=== PATIENT | male | born 1950 | race Caucasian/White ===

== ENCOUNTER → 2018-06-09 08:00 | Outpatient (CLI) | payer MEDICARE, OTHER, SELFPAY ==
[2018-06-09 11:04] LABS: AST(SGOT) 29 U/L (15-37); Alanine Aminotransfer ALT/SGPT 37 U/L (16-61); Albumin, Serum 3.8 g/dL (3.2-5.0); Alkaline Phosphatase 68 U/L (45-117); Anion Gap 7 (5-15); BUN 18 mg/dL (7-18); BUN/Creat Ratio 14.3 RATIO (10-20); Calcium,Total 8.7 mg/dL (8.5-10.1); Chloride 111 mmol/L (98-107); Cholesterol 149 mg/dL (200); Creatinine, Serum 1.26 mg/dL (0.70-1.30); EST Glomerular Filtration Rate 60 mL/min (>60); Est Glom Filt Rate - Afr Amer 73 mL/min (>60); Globulin 3.7 g/dL (2.2-4.2); Glucose 96 mg/dL (74-106); High Density Lipoprotein 28 mg/dL; Potassium 4.1 mmol/L (3.5-5.1); Protein, Total 7.5 g/dL (6.4-8.2); Sodium Level 143 mmol/L (136-145); Triglycerides 139 mg/dL; Very Low Density Lipoprotein 28 mg/dL (5-40)
== END ==
PROVIDERS: Family Provider Family Medicine; PCP Family Medicine; Visit Provider Family Medicine
DX: Z00.00 Encounter for general adult medical examination without abnormal findings (principal)
CPT/HCPCS: 36415; 80053; 80061

== ENCOUNTER → 2018-09-08 09:58 | Outpatient (CLI) | payer MEDICARE, OTHER, SELFPAY ==
[2018-09-08 13:02] LABS: AST(SGOT) 35 U/L (15-37); Alanine Aminotransfer ALT/SGPT 40 U/L (16-61); Albumin, Serum 3.9 g/dL (3.2-5.0); Alkaline Phosphatase 79 U/L (45-117); Bilirubin, Direct 0.19 mg/dL (0.00-0.30); CPK Total, Creatine Kinase 225 U/L (39-308); Cholesterol 158 mg/dL (200); Globulin 3.5 g/dL (2.2-4.2); High Density Lipoprotein 33 mg/dL; Protein, Total 7.4 g/dL (6.4-8.2); Triglycerides 123 mg/dL; Very Low Density Lipoprotein 25 mg/dL (5-40)
[2018-09-08 13:06] LABS: Vitamin D,25 Hydroxy 23.8 ng/mL (29.95-100.01)
--- OUTSIDE RECORDS SUMMARY | 2018-10-21 00:58 | XMS RPT_ITS ---
:1950 Author Organization OHIP Care Team Providers Name Role Phone Hebert Brown Attending Unavailable Hebert Brown Primary Care Unavailable Hebert Brown Attending Unavailable Hebert Brown Primary Care Unavailable Hebert Brown Attending Unavailable Hebert Brown Referring Unavailable Hebert Brown Primary Care Unavailable PROBLEMS PROBLEMS DATE TYPE CONDITION / CODE ATTENDING STATUS SOURCE 09/08/2018 Unknown M79.10 - Myalgia, Hebert Brown Active [place] unspecified site [facility]ly [facility] / M79.10(ICD-10) Hospital Repository PROCEDURES PROCEDURES No Procedure Records FoundRESULTS RESULTS LIVER PROFILE Collected: 09/08/2018 Status: F Source: [facility] 9:59 AM [facility] REPOSITORY TYPE CODE TESTS RESULT OUT OF RANGE REFERENCE UNITS LAB L501.1500 6.4-8.2 g/dL Normal T PROT 7.4 LAB L501.1800 3.2-5.0 g/dL Normal ALB 3.9 LAB L501.1950 2.2-4.2 g/dL Normal GLOB 3.5 LAB L501.4100 15-37 U/L Normal AST 35 LAB L501.4305 45-117 U/L Normal ALK P 79 LAB L501.4405 16-61 U/L Normal ALT 40 LAB L501.4600 0.20-1.00 mg/dL Normal T BILI 0.90 LAB L501.4700 0.00-0.30 mg/dL Normal D BILI 0.19 Performed By: #### L500.3400, L500.4100, L501.3620 #### [facility] [address] [place], [address] LIPID PROFILE Collected: 09/08/2018 Status: F Source: [place]ERT[place] 9:59 AM [facility] REPOSITORY TYPE CODE TESTS RESULT OUT OF RANGE REFERENCE UNITS LAB L501.4900 200 mg/dL Normal CHOL 158 Result Comment: <200 mg/dL Desirable 200-240 mg/dL Borderline >240 mg/dL High Risk LAB L501.5000 mg/dL Normal TRIG 123 Result Comment: The drugs N-Acetylcysteine and Metamizole may falsely depress this assay. Serum Triglycerides Reference Interval Normal <150 mg/dL Borderline high 150 - 199 mg/dL High 200 - 499 mg/dL Very High > or = 500 mg/dL LAB L501.6400 mg/dL Low HDL 33 Result Comment: The drugs N-Acetylcysteine and Metamizole may falsely depress this assay. Reference Range HDL <40 mg/dL Low HDL Cholesterol HDL >or= 60 mg/dL High HDL Cholesterol LAB L501.6500 0-130 mg/dL Normal LDL 100 LAB L501.6600 5-40 mg/dL Normal VLDL 25 Performed By: #### L500.3400, L500.4100, L501.3620 #### [facility] [address] [place], [address] CPK TOTAL, CREATINE Collected: 09/08/2018 Status: F Source: [facility] KINASE 9:59 AM [facility] REPOSITORY TYPE CODE TESTS RESULT OUT OF RANGE REFERENCE UNITS LAB L501.3620 39-308 U/L Normal CPK TOTAL 225 Performed By: #### L500.3400, L500.4100, L501.3620 #### [facility] [address] [place], [address] VITAMIN D,25 HYDROXY Collected: 09/08/2018 Status: F Source: [place] 9:59 AM [facility] REPOSITORY TYPE CODE TESTS RESULT OUT OF REFERENCE UNITS RANGE LAB L506.1000 29.95-100.01 ng/mL Low Vitamin D 23.8 25-OH Result Comment: Vitamin D 25(OH) Status Range Deficiency <20 ng/mL (50nmol/L) Insuffciency 20 - 30 ng/mL (50 - 75 nmol/L) Sufficiency 30 - 100 ng/mL (75 - 250 nmol/L) Toxicity >100 ng/mL (>250 nmol/L) Performed By: #### L506.1000 #### [facility] [place], [address] COMPREHENSIVE METABOLIC Collected: 06/09/2018 Status: F Source: [facility] KUMAR 8:06 AM [facility] REPOSITORY Order Comment: Order Date: 06/03/18 Order Info: [id number] - CMP Order Info: [id number] - LIPID TYPE CODE TESTS RESULT OUT OF RANGE REFERENCE UNITS LAB L501.0100 74-106 mg/dL Normal GLU 96 Result Comment: Please note revised GLUCOSE reference range effective 2017. LAB L501.1000 7-18 mg/dL Normal BUN 18 LAB L501.1100 0.70-1.30 mg/dL Normal CREAT,SERUM 1.26 Result Comment: The validity of the calculated GFR AND GFRAA in patients over 70 years has not been determined. Clinical correlation is essential. LAB L501.1110 >60 mL/min Normal EST GFR 60 Result Comment: Non- GFR Calc LAB L501.1115 >60 mL/min Normal EST GFR - AA 73 Result Comment: GFR Calc LAB L501.1300 10-20 RATIO Normal BUN/CRE 14.3 LAB L501.1500 6.4-8.2 g/dL T Normal PROT 7.5 LAB L501.1800 3.2-5.0 g/dL Normal ALB 3.8 LAB L501.1950 2.2-4.2 g/dL Normal GLOB 3.7 LAB L501.2000 0.9-2.4 RATIO Normal A/G 1.0 LAB L501.2200 8.5-10.1 mg/dL CA Normal 8.7 LAB L501.4100 15-37 U/L Normal AST 29 Result Comment: Slight Hemolysis, Result may be falsely increased. LAB L501.4305 45-117 U/L Normal ALK P 68 LAB L501.4405 16-61 U/L Normal ALT 37 LAB L501.4600 0.20-1.00 mg/dL Normal T BILI 1.00 LAB L501.5300 136-145 mmol/L Normal NA 143 LAB L501.5600 3.5-5.1 mmol/L Normal K 4.1 Result Comment: Slight Hemolysis, Result may be falsely increased. LAB L501.5900 98-107 mmol/L High CL 111 LAB L501.6100 21.0-32.0 mmol/L Normal CO2 25.0 LAB L501.6200 5-15 Normal 7 GAP Performed By: #### L500.4050, L500.4100 #### [facility] [address] [place], [place], [address] LIPID PROFILE Collected: 06/09/2018 Status: F Source: TERRY 8:06 AM [facility] REPOSITORY Order Comment: Order Date: 06/03/18 Order Info: [id number] - CMP Order Info: [id number] - LIPID TYPE CODE TESTS RESULT OUT OF RANGE REFERENCE UNITS LAB L501.4900 200 mg/dL Normal CHOL 149 Result Comment: <200 mg/dL Desirable 200-240 mg/dL Borderline >240 mg/dL High Risk LAB L501.5000 mg/dL Normal TRIG 139 Result Comment: The drugs N-Acetylcysteine and Metamizole may falsely depress this assay. Serum Triglycerides Reference Interval Normal <150 mg/dL Borderline high 150 - 199 mg/dL High 200 - 499 mg/dL Very High > or = 500 mg/dL LAB L501.6400 mg/dL Low HDL 28 Result Comment: The drugs N-Acetylcysteine and Metamizole may falsely depress this assay. Reference Range HDL <40 mg/dL Low HDL Cholesterol HDL >or= 60 mg/dL High HDL Cholesterol LAB L501.6500 0-130 mg/dL Normal LDL 93 LAB L501.6600 5-40 mg/dL Normal VLDL 28 Performed By: #### L500.4050, L500.4100 #### [facility] [address] [place], [address] ALLERGIES ALLERGIES No Allergies Records FoundENCOUNTERS ENCOUNTERS ADMIT/DISCHARGE ACCOUNT ADMITTING ENCOUNTER LOCATION SOURCE NUMBER CLASS 09/29/2018 [id number] Ambulatory [facility] 9 [facility] ing:PT Repository 09/08/2018 [id number] Ambulatory [place] 6 [facility] ing:MFPLAB Repository 06/09/2018 [id number] Ambulatory [place] 7 [facility] ing:MFPLAB Repository PAYERS PAYERS ENCOUNTER GUARANTOR PAYER SUBSCRIBER SOURCE 09/29/2018 QUIRINO E Primary QUIRINO E [place] [id number] [address] Insurance:MEDICARE FANKHAUSERDOB: [facility] [id number] Number: Repository [id number]: 330 [id number] [phone] () Date:2013-12-11 09/29/2018 Secondary QUIRINO E [place] Insurance:AETNA SR FANKHAUSERDOB: Community SUPPLEMENT [facility] [id number] Hospital Number: Repository [id number] Date:[id number] SENIOR SUPPLEMENT [address] [place] [id number]: 09/29/2018 Tertiary NOT GIVENUNK [place] Insurance:SELF PAY [facility] Number: Effective Repository Date:2018-09-18 09/08/2018 QUIRINO E Primary QUIRINO E [place] [id number] Insurance:MEDICARE FANKHAUSERDOB: [facility] [id number] Number: Repository [id number]: 330 [id number] [phone] () Date:2018-09-08 09/08/2018 Secondary QUIRINO E [place] Insurance:AETNA SR FANKHAUSERDOB: Community SUPPLEMENT [facility] [id number] Hospital Number: Repository [id number] Date:[id number] SENIOR SUPPLEMENT [id number] [place] [id number]: 09/08/2018 Tertiary NOT GIVENUNK [place] Insurance:SELF PAY [facility] Number: Effective Repository Date:2018-09-08 06/09/2018 QUIRINO E Primary QUIRINO E [place] [id number] Insurance:MEDICARE FANKHAUSERDOB: [facility] PART A BPolicy [id number] Number: Repository [address]Jua: [phone] [id number] [phone] () Date:2018-06-09 06/09/2018 Secondary QUIRINO E [place] Insurance:ROMEO NIEVESOB: Community SUPPLEMENT [facility] [id number] Hospital Number: Repository [id number] Date:0723-11-75PSRTI SENIOR SUPPLEMENT [address] [address], [place] [address]LZ: 06/09/2018 Tertiary NOT GIVENUNK [place] Insurance:SELF PAY [facility] Number: Effective Repository Date:2018-06-09
== END ==
PROVIDERS: Family Provider Family Medicine; PCP Family Medicine; Visit Provider Family Medicine
DX: M79.10 Myalgia, unspecified site (principal)
CPT/HCPCS: 36415; 80061; 80076; 82306; 82550

== ENCOUNTER 2018-10-22 12:00 | Outpatient (RCR) | payer MEDICARE, OTHER, SELFPAY ==
--- NOTE | 2018-10-08 08:02 | HP.PTEVAL ---
Patient's Visit Information QUIRINO CORDERO is a 68 year old M referred to Physical Therapy by Hebert Brown MD with a diagnosis of R shoulder pain, RTC weakness. Date of Evaluation: 09/22/18 Physical Therapist: Adryan Heredia DPT - Visit Plan Frequency: 1x/Week Duration: 5 weeks Plan: Progress rotator cuff, scapular strengthening to tolerance. - Subjective Findings: Pt. is here today for his initial evaluation with diagnosis of R shoulder RTC weakness. Pt. reports having increased soreness and weakness over the past few years. Pt. reports no mechanism of injury that he can remember. Pt. denies N/T. He does have pain with lifting over head, reaching out to side and forward, eating and UB dressing. Pt. reports pain at subacromial space and in deltoid region. Pt. has not trialed any exercises at this point in time. Pt. was sent here to work on RTC strengthening specifically his supraspinatus muscle. Pt. is hopeful to increase strength in order to get back to all recreational and household activities without limitations. - Pain Right Shoulder Pain Intensity (Out of 10): 1 Pain Intensity Range: 0, 4 - Objective POSTURE: Pt. has normal should heights. Pt. does have slight FH and rounded shoulder posture. Pt. is able to correct with VCing. Pt. has slight protracted scapulae bilaterally. PALPATION: Pt. has no pain throughout scapular region. Pt. does have slight pain with palpation of subacomial space. NEURO: Pt. has normal sensation to light and sharp touch. Pt. has 2+ DTR of bilateral UEs. ROM: L shoulder- full without issues. R shoulder- flexion 175deg, abd 165deg mild increase NW, ER C5 NE, IR L2 NE. MMT: L shoulder- 5/5 throughout. R shoulder- flexion 4+/5, abd 4/5, ER 4-/5, IR 5/5, ext 5/5. Pt. had mild pain with ER, increase NW. - Special Tests R Shoulder Drop Sign - IS Test: Negative R Shoulder Empty Can - SS: Positive R Shoulder Neer - Impingement: Positive R Shoulder [place] - Impingement: Positive R Shoulder Biceps Load Test - Labrum: Negative R Shoulder Speeds Test - Labrum/Biceps: Negative Comments: weakness with testing, minimal pain - Goals Goal 1:: Pt. to be I with HEP. Goal Time Frame: 4-6 Weeks Goal 2:: Pt. to sleep througout the night without increase in symptoms. Goal Time Frame: 2-4 Weeks Goal 3:: Pt. to have increased strength throughout R shoulder by 1/2 grade to increase tolerance to all recreational and ADL activities. Goal Time Frame: 4-6 Weeks Goal 4:: Pt. to complete all ADLs and household work without increase in symptoms. Goal Time Frame: 4-6 Weeks Goal 5:: Pt. to have full ROM of R shoulder without increase in symptoms. Goal Time Frame: 4-6 Weeks - Rehabilitation Potential Physical Therapy Diagnosis: Pt. has signs and symptoms consistent with R shoulder pain and RTC weakness. Pt. has greatest weakness with ER, supraspinatus muscle. Pt. does have increased symptoms with ER movements and overhead. Pt. has marked weakness and would benefit from strengthening to increase stability and tolerance to all ADls and recreational activities. Rehabilitation Potential: Good - Anticipated Interventions Patient/Client Instruction: Educate patient on: Condition, Plan of Care, Risk Factors, Benefits of Fitness Program For the Purpose of:: To improve decision making, To facilitate caregiver knowledge, To improve self management, To prevent re-injury, To improve ability to perform tasks related to life management, To improve tolerance to ADL's Therapeutic Exercise to Include: Strength training, Power training, Endurance training, Postural training, Flexibilty training, Passive ROM, Active ROM, Scapular Strength/Stabilization For the Purpose of:: To decrease pain, To decrease swelling/inflammation, To increase ROM, To improve nutrient delivery to tissue, To increase oxygenation perfusion, To improve muscle performance and motor function, To improve ability to perform ADL's, To improve health of tissue, To decrease soft tissue restriction, To increase flexibility/ROM Manual Therapy Techniques to Include: Mobilization, Passive ROM For the Purpose of:: To decrease pain, To increase ROM Cryotherapy (ice pack, ice massage): Yes Thermo therapy (hot pack): Yes For the Purpose of:: To decrease pain, To decrease swelling/inflammation, To increase ROM Thank you for the opportunity to evaluate your patient. For Medicare and Medicare HMO plans, please review the plan of care and approve it. It will need to be FAXED BACK to us at [phone] for Medicare purposes. For Medicare only, by signing this I certify the plan of care. Please let me know if there are questions or concerns regarding this plan of care. Physician Signature: Date:
--- NOTE | 2018-12-09 14:27 | HP.PT.NRP ---
HP - Discharge Summary (1) - Patient Information QUIRINO CORDERO was seen in my office for initial evaluation on 09/22/18. The following Plan of Care was established for this patient: Initial Frequency: 1x/Week Initial Duration: 5 weeks - Anticipated Interventions Patient/Client Instruction: Educate patient on: Condition, Plan of Care, Risk Factors, Benefits of Fitness Program For the Purpose of:: To improve decision making, To facilitate caregiver knowledge, To improve self management, To prevent re-injury, To improve ability to perform tasks related to life management, To improve tolerance to ADL's Therapeutic Exercise to Include: Strength training, Power training, Endurance training, Postural training, Flexibilty training, Passive ROM, Active ROM, Scapular Strength/Stabilization For the Purpose of:: To decrease pain, To decrease swelling/inflammation, To increase ROM, To improve nutrient delivery to tissue, To increase oxygenation perfusion, To improve muscle performance and motor function, To improve ability to perform ADL's, To improve health of tissue, To decrease soft tissue restriction, To increase flexibility/ROM Manual Therapy Techniques to Include: Mobilization, Passive ROM For the Purpose of:: To decrease pain, To increase ROM Cryotherapy (ice pack, ice massage): Yes Thermo therapy (hot pack): Yes For the Purpose of:: To decrease pain, To decrease swelling/inflammation, To increase ROM This patient was last seen in our office 10/22/18. Pertinent comments regarding their Physical therapy will appear below: Pt. was seen for his shoulder pain. Pt. was treated with strengthening and stretching. Pt. has having minimal pain, but still had some crepitus with overhead movements and weakness noted in same region. Pt. desired to continue with exercises on his own after our last visit. Pt. will be DC from PT at this point in time. At this point I will be discontinuing this patient from physical therapy. I would be happy to see this patient again in the future if found appropriate by the physician. Thank you! Adryan Heredia DPT
== END 2018-10-22 19:00 | disposition home or self-care (01) ==
LOC: PT 12:00
PROVIDERS: Family Provider Family Medicine; PCP Family Medicine; Referring Provider Family Medicine; Visit Provider Family Medicine
DX: M62.511 Muscle wasting and atrophy, not elsewhere classified, right shoulder (principal)
CPT/HCPCS: 97110; 97162

== ENCOUNTER → 2019-03-09 | Outpatient (CLI) | payer MEDICARE, OTHER, SELFPAY ==
[2019-03-09 10:44] LABS: Anion Gap 6 (5-15); BUN 25 mg/dL (7-18); Calcium,Total 8.6 mg/dL (8.5-10.1); Chloride 111 mmol/L (98-107); Cholesterol 137 mg/dL (200); Creatinine, Serum 1.19 mg/dL (0.70-1.30); EST Glomerular Filtration Rate 64 mL/min (>60); Est Glom Filt Rate - Afr Amer 78 mL/min (>60); Glucose 91 mg/dL (74-106); High Density Lipoprotein 29 mg/dL; Potassium 4.3 mmol/L (3.5-5.1); Sodium Level 143 mmol/L (136-145); Triglycerides 97 mg/dL; Very Low Density Lipoprotein 19 mg/dL (5-40)
== END | disposition home or self-care (01) ==
LOC: MFPLAB 08:44
PROVIDERS: Family Provider Family Medicine; PCP Family Medicine; Referring Provider Family Medicine; Visit Provider Family Medicine
DX: I10 Essential (primary) hypertension (principal); E78.00 Pure hypercholesterolemia, unspecified
CPT/HCPCS: 36415; 80048; 80061

== ENCOUNTER → 2019-08-16 08:50 | Outpatient (CLI) | payer MEDICARE, OTHER, SELFPAY ==
[2019-08-16 11:11] LABS: Anion Gap 6 (5-15); BUN 25 mg/dL (7-18); Calcium,Total 9.2 mg/dL (8.5-10.1); Chloride 107 mmol/L (98-107); Creatinine, Serum 1.19 mg/dL (0.70-1.30); EST Glomerular Filtration Rate 64 mL/min (>60); Est Glom Filt Rate - Afr Amer 78 mL/min (>60); Glucose 98 mg/dL (74-106); PSA,Total - Annual Screen 3.29 ng/mL (0.00-4.00); Potassium 4.5 mmol/L (3.5-5.1); Sodium Level 141 mmol/L (136-145)
== END ==
PROVIDERS: Family Provider Family Medicine; PCP Family Medicine; Visit Provider Family Medicine
DX: Z00.00 Encounter for general adult medical examination without abnormal findings (principal)
CPT/HCPCS: 36415; 80048; 84153; G0103

== ENCOUNTER 2019-08-16 12:57 | Emergency (ER) | payer MEDICARE, OTHER, SELFPAY ==
[2019-08-16 12:58] VITALS: BP 169/97; PULSE 68; RESP 17; TEMP 36.4; O2SAT 97; BMI 36.3
--- NOTE | 2019-08-16 13:07 | EKG12_ITS ---
Test Reason : CP Blood Pressure : / mmHG Vent. Rate : 066 BPM Atrial Rate : 066 BPM P-R Int : 186 ms QRS Dur : 074 ms QT Int : 410 ms P-R-T Axes : 022 004 024 degrees QTc Int : 429 ms Normal sinus rhythm Possible Left atrial enlargement Borderline ECG Confirmed by LANRE RUSH, AMY ([id number]), make up editor DOLLY ALLISON ([id number]) on 08/18/2019 11:03:33 AM Referred By: ESTEFANIA Confirmed By:AMY DE DIOS MD
--- NOTE | 2019-08-16 13:07 | RAD_ITS ---
STUDY: X-RAY CHEST REASON FOR EXAM: Male, 69 years old. Chest pain. TECHNIQUE: Single AP portable view of the chest. COMPARISON: None. FINDINGS: EKG electrodes are seen. The lungs are clear and expanded. There is no demonstrated pleural abnormality. Normal size heart. Normal mediastinum and ben. Normal visualized pulmonary arteries. Normal visualized aortic arch and descending thoracic aorta. Normal visualized thoracic spine. Normal visualized ribs, clavicles, and shoulders. There is no demonstrated abnormality of the visualized soft tissue structures of the upper abdomen. RAD/Chest 1 View (Portable) IMPRESSION: Normal x-ray examination of the chest. Electronically Signed: Jay Bernard, at 13:40 EST , Service support ,
[2019-08-16] MEDS: Aspirin 81 MG TAB.CHEW 324 MG PO (13:55)
[2019-08-16] MEDS: 0.9% Normal Saline 1,000 ML 150 ML IV (13:55)
[2019-08-16 13:56] VITALS: BP 165/95; PULSE 67; RESP 19; O2SAT 97; O2SAT 98
[2019-08-16 14:13] LABS: Absolute Lymphocyte Count 1.75 X10^3/uL (0.83-4.51); Absolute Neutrophil Count 3.6 X10^3/uL (2.0-7.7); Basophil# 0.03 X10^3/uL; Basophil% 0.5 % (0-1); Eosinophil# 0.14 X10^3/uL; Eosinophils% 2.3 % (0-5); Hematocrit 50.1 % (40-54); Hemoglobin 16.5 g/dL (13.0-16.5); Lymphocyte # 1.75 X10^3/ul (4.0); Lymphocyte % 29.1 % (19-41); Mean Corp Hgb Conc 32.9 g/dL (32-36); Mean Corpuscular Hgb 30.7 pg (27.0-32.0); Mean Corpuscular Volume 93.1 fL (80-94); Mean Platelet Vol. 10.1 fl (6.2-12.0); Monocyte# 0.45 X10^3/uL; Monocyte% 7.5 % (0-10); NRBC Flagged by Analyzer 0 % (0-5); Neutrophil # 3.63 X10^3/uL (2.7-7.7); Neutrophil % 60.3 % (47-70); Platelet Count 165 K/mm3 (150-450); RBC Distribution Width CV 13.1 % (11.6-14.6); RBC Distribution Width SD 44.8 fl (35.1-43.9); Red Blood Count 5.38 M/mm3 (4.6-6.2)
[2019-08-16 14:23] VITALS: BP 152/92; PULSE 56; RESP 12; O2SAT 97
[2019-08-16 14:34] LABS: Anion Gap 5 (5-15); BUN 20 mg/dL (7-18); BUN/Creat Ratio 17.4 RATIO (10-20); Calcium,Total 9.4 mg/dL (8.5-10.1); Chloride 106 mmol/L (98-107); Creatinine, Serum 1.15 mg/dL (0.70-1.30); EST Glomerular Filtration Rate 67 mL/min (>60); Est Glom Filt Rate - Afr Amer 81 mL/min (>60); Estimated Creatinine Clearance 55.88 ml/min; Glucose 88 mg/dL (74-106); Potassium 4.5 mmol/L (3.5-5.1); Sodium Level 138 mmol/L (136-145)
--- NOTE | 2019-08-16 14:49 | ED.DCSUM_ITS ---
History of Present Illness Chief Complaint: Chest Pain Informant: Patient Onset: Days Context: Gradual Onset Timing: Continuous Current Severity: Mild Maximum Severity: Mild Narrative: The patient presents to the emergency department chest pain. Patient states for the past few days, he said a tightness across his left chest. He states he feels like there is a muscle spasm. It is been constant. It does not radiate. He denies any shortness of breath, neck pain, arm pain. He denies any fevers or chills. He said no cough or productive sputum. He states otherwise he is been in his normal state of health. He has no history of coronary vascular disease. Prior similar symptoms: No Recent Illness/Hospitalization: No Past Medical History - Allergies and Home Meds Allergies/Adverse Reactions: Allergies No Known Allergies Allergy (Verified 08/16/19 12:58) Primary Care Physician: Hebert Brown MD [Primary Care Provider] - Prior records reviewed: Yes Surgical History: no surgical history Lives: With Family Smoking Status: Former smoker Review of Systems General: Denies: Chills, Fever, Sweats Eyes: Denies: Visual changes - bilaterally, Diplopia ENT: Denies: Rhinorrhea, Sore throat Cardiovascular: Denies: Chest pain, Palpitations Respiratory: Denies: Dyspnea, Cough, Dyspnea on exertion Gastrointestinal: Denies: Abdominal pain, Nausea, Vomiting, Diarrhea, Melena, Hematochezia Genitourinary: Denies: Dysuria, Hematuria, Frequency Musculoskeletal: Denies: Back pain, Extremity Pain Skin: Denies: Rash, Wounds Neurological: Denies: Headache, Weakness, Numbness Physical Exam Vital Signs/Narrative: Vital Signs Temp Pulse Resp BP Pulse Ox 08/16/19 14:23 56 L 12 152/92 H 97 08/16/19 13:56 67 19 H 165/95 H 97 08/16/19 12:58 97.6 F L 68 17 169/97 H 97 Inital Vital Signs reviewed: Yes General: Well nourished, Well developed, No Acute Distress Head: Normocephalic, Atraumatic Eyes: Perrl, EOMI ENT: Moist mucous membranes, No rhinorrhea Neck: Supple, Nontender Cardiovascular: Regular rate, Regular rhythm, No murmurs Respiratory: No distress, CTA bilaterally, Chest tenderness Abdomen: Soft, Nontender, Nondistended, Normal bowel sounds Back: Nontender, Normal Inspection Extremities: Nontender, No edema Skin: Normal color, No rash Neurological: Alert, Oriented x3, Cranial nerves II-XII grossly intact, Normal Strength, Normal Sensation Psychological: Normal affect, Normal Mood Diagnostic/Tx/Re-eval Chest X-Ray - ED: 2 View, Normal, Heart, Lungs, Mediastinum Clinical Impression(s) from Imaging Studies Chest X-Ray 08/16/19 13:07 IMPRESSION: Normal x-ray examination of the chest. Electronically Signed: Jay Torresmeghnaesmer, at 13:40 EST , Service support , Abnormal Lab Results 08/16/19 08/16/19 14:00 14:00 WBC 6.0 RBC 5.38 Hgb 16.5 Hct 50.1 MCV 93.1 MCH 30.7 MCHC 32.9 RDW Std Deviation 44.8 H RDW Coeff of Ericka 13.1 Plt Count 165 MPV 10.1 Immature Gran % (Auto) 0.300 Neut % (Auto) 60.3 Lymph % (Auto) 29.1 [place] % (Auto) 7.5 Eos % (Auto) 2.3 Baso % (Auto) 0.5 Absolute Neuts (auto) 3.6 Absolute Lymphs (auto) 1.75 Nucleated RBC % 0 Sodium 138 Potassium 4.5 Chloride 106 Carbon Dioxide 27.0 Anion Gap 5 BUN 20 H Creatinine 1.15 Estim Creat Clear Calc 55.88 Est GFR (MDRD) Af Amer 81 Est GFR (MDRD) Non-Af 67 BUN/Creatinine Ratio 17.4 Glucose 88 Calcium 9.4 Troponin I < 0.015 - Rhythm Strip Rhythm Strip: Sinus Rhythm Rate: 60 Ectopy: None - EKG Initial EKG Interpretation: Sinus Rhythm, No Acute Injury Pattern - Medical Decision Making The patient presents with reproducible chest wall pain. There is no vesicles or lesions. EKG was obtained. It was sinus rhythm without acute ischemic change. Patient was resting comfortably. Cardiac enzymes are normal. He is a constant pain for 3 days. I really do not suspect acute coronary syndrome. It is not made worse with exertion. It is nonradiating. It is reproducible. At this point, if the patient is safe for outpatient follow-up. He is comfortable this plan of care and will be discharged home. Impression 1. Chest pain ED Disposition - Plan for ED Patient: Instructions: CHEST PAIN, Uncertain Cause Referrals: Hebert Brown MD [Primary Care Provider] -
[2019-08-16 15:07] VITALS: BP 147/88; PULSE 64; RESP 18; O2SAT 97
== END 2019-08-16 15:09 | disposition home or self-care (01) ==
LOC: ED 13:17
PROVIDERS: Emergency Provider Emergency Medicine; Family Provider Family Medicine; PCP Family Medicine
DX: R07.9 Chest pain, unspecified (principal); I10 Essential (primary) hypertension; Z87.891 Personal history of nicotine dependence
CPT/HCPCS: 36415; 71045; 80048; 84153; 84484; 85025; 93005; 96360; 99285; J7030; G0103

== ENCOUNTER → 2019-12-07 | Outpatient (CLI) | payer MEDICARE, OTHER, SELFPAY ==
[2019-12-07 10:30] LABS: Hematocrit 50.3 % (40-54); Hemoglobin 16.4 g/dL (13.0-16.5); Mean Corp Hgb Conc 32.6 g/dL (32-36); Mean Corpuscular Hgb 30.5 pg (27.0-32.0); Mean Corpuscular Volume 93.7 fL (80-94); Platelet Count 162 K/mm3 (150-450); RBC Distribution Width CV 13.2 % (11.6-14.6); Red Blood Count 5.37 M/mm3 (4.6-6.2)
[2019-12-07 11:13] LABS: ALB/GLOB Ratio 1.1 RATIO (0.9-2.4); AST(SGOT) 29 U/L (15-37); Alanine Aminotransfer ALT/SGPT 36 U/L (16-61); Alkaline Phosphatase 71 U/L (45-117); Anion Gap 5 (5-15); BUN 25 mg/dL (7-18); BUN/Creat Ratio 18.4 RATIO (10-20); Calcium,Total 9.2 mg/dL (8.5-10.1); Chloride 110 mmol/L (98-107); Creatinine, Serum 1.36 mg/dL (0.70-1.30); EST Glomerular Filtration Rate 55 mL/min (>60); Est Glom Filt Rate - Afr Amer 67 mL/min (>60); Globulin 3.8 g/dL (2.2-4.2); Glucose 94 mg/dL (74-106); Potassium 4.3 mmol/L (3.5-5.1); Protein, Total 7.8 g/dL (6.4-8.2); Sodium Level 140 mmol/L (136-145)
[2019-12-07 11:24] LABS: Vitamin D,25 Hydroxy 29.4 ng/mL
== END | disposition home or self-care (01) ==
LOC: MFPLAB 09:23
PROVIDERS: PCP Family Medicine; Referring Provider Family Medicine; Visit Provider Family Medicine
DX: E55.9 Vitamin D deficiency, unspecified (principal); M25.50 Pain in unspecified joint
CPT/HCPCS: 36415; 80053; 82306; 85027

== ENCOUNTER → 2020-03-09 | Outpatient (CLI) | payer MEDICARE, OTHER, SELFPAY ==
[2020-03-09 10:30] LABS: Anion Gap 5 (5-15); BUN 24 mg/dL (7-18); BUN/Creat Ratio 18.8 RATIO (10-20); Calcium,Total 8.8 mg/dL (8.5-10.1); Chloride 108 mmol/L (98-107); Creatinine, Serum 1.28 mg/dL (0.70-1.30); EST Glomerular Filtration Rate 59 mL/min (>60); Est Glom Filt Rate - Afr Amer 71 mL/min (>60); Glucose 99 mg/dL (74-106); Potassium 4.2 mmol/L (3.5-5.1); Sodium Level 139 mmol/L (136-145)
== END | disposition home or self-care (01) ==
LOC: MFPLAB 09:06
PROVIDERS: PCP Family Medicine; Referring Provider Family Medicine; Visit Provider Family Medicine
DX: R79.89 Other specified abnormal findings of blood chemistry (principal)
CPT/HCPCS: 36415; 80048

== ENCOUNTER 2020-12-22 10:52 | Observation (INO) | payer MEDICARE, OTHER, SELFPAY ==
[2020-12-22] VITALS (13 sets, daily range): BP systolic 145–179; BP diastolic 80–100; PULSE 58–78; RESP 12–17; TEMP 35.9–36.9; O2SAT 94–99; BMI 34.9; BMI 35.9
--- NOTE | 2020-12-22 11:22 | EKG12_ITS ---
Test Reason : Blood Pressure : / mmHG Vent. Rate : 062 BPM Atrial Rate : 062 BPM P-R Int : 162 ms QRS Dur : 076 ms QT Int : 418 ms P-R-T Axes : 031 -03 026 degrees QTc Int : 424 ms Normal sinus rhythm with sinus arrhythmia Normal ECG Confirmed by YAHIR RUSH, SPENCER ([id number]), editorial assistant DOLLY ALLISON ([id number]) on 12/25/2020 10:31:48 A M Referred By: RACHAEL Confirmed By:KAREN SINCLAIR MD
--- NOTE | 2020-12-22 11:22 | RAD_ITS ---
STUDY: X-RAY CHEST REASON FOR EXAM: Male, 70 years old. chest pain TECHNIQUE: Single AP portable view of the chest. COMPARISON: 08/16/2019 FINDINGS: The lungs are clear and expanded. There is no demonstrated pleural abnormality. Normal size heart. Normal mediastinum and ben. Normal visualized pulmonary arteries. Normal visualized aortic arch and descending thoracic aorta. Normal visualized thoracic spine. Normal visualized ribs, clavicles, and shoulders. There is no demonstrated abnormality of the visualized soft tissue structures of the upper abdomen. RAD/Chest 1 View (Portable) IMPRESSION: Normal x-ray examination of the chest. Electronically Signed: Deandre Pardo MD at 12:10 EST Tel , Service support ,
--- NOTE | 2020-12-22 11:23 | ED.VIS.GEN ---
History of Present Illness Chief Complaint: General Illness Narrative: 70-year-old male presenting for evaluation. Patient states that he was sitting on the couch and went to stand up and when he did he just became weak and rolled over onto his hands and knees. His states that he was sweating. He was not pale. He denies nausea. He states it felt like somebody had a hand on his chest on the way here in the car and felt like he was in a tunnel. He states this only lasted a couple of minutes. He felt anxious. He denies history of cardiac issues. He does have hypertension and hyperlipidemia. He has no history of stress test. Past Medical History - Allergies and Home Meds Allergies/Adverse Reactions: Allergies No Known Allergies Allergy (Verified 12/22/20 10:53) Prior records reviewed: Yes Past Medical History: - - Hypertension, hyperlipidemia Surgical History: no surgical history Lives: Spouse/ Significant Other Smoking Status: Former smoker Alcohol: None Drugs: None - Family History Maternal Family History: Reports: - - Patient with maternal family history of cancer, some type of female cancer that metastasized to her lungs, hypertension. Paternal Family History: Reports: Diabetes Review of Systems General: Reports: - - Brief generalized weakness. Denies: Chills, Fever Eyes: Denies: Visual changes - bilaterally, Diplopia Cardiovascular: Reports: Chest pain. Denies: Palpitations, Heart racing Respiratory: Denies: Dyspnea, Cough Gastrointestinal: Denies: Abdominal pain, Nausea, Vomiting Genitourinary: Denies: Dysuria, Hematuria Musculoskeletal: Denies: Myalgias, Arthralgias Neurological: Reports: - - Tingling over her entire body.. Denies: Headache, Weakness, Parasthesia Psych: Denies: Depression, Anxiety Physical Exam Vital Signs/Narrative: Vital Signs Temp Pulse Resp BP Pulse Ox 12/22/20 10:53 97.5 F L 72 16 149/88 H 94 Inital Vital Signs reviewed: Yes General: Obese, No Acute Distress ENT: Moist mucous membranes, No rhinorrhea Cardiovascular: Regular rate, Regular rhythm Respiratory: No distress, CTA bilaterally Abdomen: Soft, Nontender, Nondistended Extremities: Nontender, No edema Skin: Normal color, No rash. Negative for: Cyanosis, Diaphoresis Neurological: Alert, Oriented x3, Cranial nerves II-XII grossly intact Psychological: Normal affect, Normal Mood Diagnostic/Tx/Re-eval Clinical Impression(s) from Imaging Studies Chest X-Ray 12/22/20 11:22 IMPRESSION: Normal x-ray examination of the chest. Electronically Signed: Deandre Pardo MD at 12:10 EST Tel , Service support , Laboratory Data 12/22/20 12/22/20 12/22/20 11:40 11:40 11:40 WBC 7.4 RBC 5.36 Hgb 16.4 Hct 49.8 MCV 92.9 MCH 30.6 MCHC 32.9 RDW Std Deviation 45.2 H RDW Coeff of Ericka 13.4 Plt Count 163 MPV 10.6 Immature Gran % (Auto) 0.100 Neut % (Auto) 61.9 Lymph % (Auto) 27.7 [place] % (Auto) 7.6 Eos % (Auto) 2.3 Baso % (Auto) 0.4 Absolute Neuts (auto) 4.6 Absolute Lymphs (auto) 2.05 Nucleated RBC % 0 D-Dimer Quant (PE/DVT) 0.33 Sodium 141 Potassium 4.1 Chloride 108 H Carbon Dioxide 29.0 Anion Gap 4 L BUN 24 H Creatinine 1.28 Estim Creat Clear Calc 51.21 Est GFR (MDRD) Af Amer 71 Est GFR (MDRD) Non-Af 59 L BUN/Creatinine Ratio 18.8 Glucose 101 Calcium 9.5 Magnesium 2.0 Troponin I < 0.015 - Medical Decision Making 70-year-old male presenting with chest pain felt like subtle pressure as well as near syncope. Patient had EKG performed on arrival with a normal sinus rhythm with slight sinus arrhythmia at 62 bpm as interpreted by myself. Chest x-ray showed no acute cardiopulmonary process as interpreted by myself. Patient's lab work shows white blood cell count 7.4, hemoglobin 10.4, platelets 163. GFR is 59. Electrolytes are unremarkable. Troponin negative. Magnesium is normal. Patient's heart score is 4. He was given aspirin. I feel patient would benefit from inpatient evaluation of his chest pain. Impression: 1. Near syncope 2. Chest pain ED Disposition - Plan for ED Patient:
[2020-12-22 11:47] LABS: Absolute Lymphocyte Count 2.05 X10^3/uL (0.83-4.51); Absolute Neutrophil Count 4.6 X10^3/uL (2.0-7.7); Basophil# 0.03 X10^3/uL; Basophil% 0.4 % (0-1); Eosinophil# 0.17 X10^3/uL; Eosinophils% 2.3 % (0-5); Hematocrit 49.8 % (40-54); Hemoglobin 16.4 g/dL (13.0-16.5); Lymphocyte # 2.05 X10^3/ul (4.0); Lymphocyte % 27.7 % (19-41); Mean Corp Hgb Conc 32.9 g/dL (32-36); Mean Corpuscular Hgb 30.6 pg (27.0-32.0); Mean Corpuscular Volume 92.9 fL (80-94); Mean Platelet Vol. 10.6 fl (6.2-12.0); Monocyte# 0.56 X10^3/uL; Monocyte% 7.6 % (0-10); NRBC Flagged by Analyzer 0 % (0-5); Neutrophil # 4.59 X10^3/uL (2.7-7.7); Neutrophil % 61.9 % (47-70); Platelet Count 163 K/mm3 (150-450); RBC Distribution Width CV 13.4 % (11.6-14.6); RBC Distribution Width SD 45.2 fl (35.1-43.9); Red Blood Count 5.36 M/mm3 (4.6-6.2); White Blood Count 7.4 K/mm3 (4.4-11.0)
[2020-12-22] MEDS: Aspirin 81 MG TAB.CHEW 324 MG PO (11:56)
[2020-12-22 11:58] LABS: D-Dimer Quantitative (DVT/PE) 0.33 FEU/ug/m (0.27-0.49)
[2020-12-22 12:04] LABS: Anion Gap 4 (5-15); BUN 24 mg/dL (7-18); BUN/Creat Ratio 18.8 RATIO (10-20); Calcium,Total 9.5 mg/dL (8.5-10.1); Chloride 108 mmol/L (98-107); Creatinine, Serum 1.28 mg/dL (0.70-1.30); EST Glomerular Filtration Rate 59 mL/min (>60); Est Glom Filt Rate - Afr Amer 71 mL/min (>60); Estimated Creatinine Clearance 51.21 ml/min; Glucose 101 mg/dL (74-106); Potassium 4.1 mmol/L (3.5-5.1); Sodium Level 141 mmol/L (136-145)
--- NOTE | 2020-12-22 13:14 | HP.PCM_ITS ---
Problem List (1) Near syncope Status: Acute (2) Chest pressure Status: Acute (3) Hypertension Status: Chronic Qualifiers: Hypertension type: essential hypertension Qualified Code(s): I10 - Es sential (primary) hypertension (4) Hyperlipidemia Status: Chronic Qualifiers: Hyperlipidemia type: unspecified Qualified Code(s): E78.5 - Hyperlipidemia, unspecified (5) Former tobacco use Status: Chronic (6) Anxiety Status: Chronic (7) Obesity (BMI 30-39.9) Status: Chronic History of Present Illness Date of Admission: 12/22/20 Chief Complaint: Near syncope, weakness, diaphoresis, possible chest pressure. The patient is a 70 y/o M w/ PMHx: HTN, HLD, Anxiety, Former tobacco use who presents to the [facility] ED on 12/22/20 with history of onset prior to ED presentation episode of significant weakness upon standing up from the couch with no specific lightheadedness or dizziness but patient fell to his knees and was on all fours with witnessing noting that he was extremely diaphoretic and tremulous prompting her to bring him to the emergency room and during her drive he did note sensation of hearing her distantly and felt somewhat as if he had tunnel vision with chest pressure which he specifically described as a hand on his chest in the midsternal region, nonradiating, very mild, 2 out of 10 in severity potentially with no associated dyspnea, nausea or worsened diaphoresis. He did describe however during the entire event that he felt as though his whole body was mildly tingling. He denies ever having anything like this prior. He notes he is normally very active. In the ED upon presentation he denies any recurrent symptoms. Work-up in the ED included T 97.5, heart rate 72, BP 149/88, orthostatics not marked appearing, respiratory rate 16, 94 to 96% on room air, CBC with WBC 7.4, hemoglobin 16.4, platelet 163 that marked shift, D-dimer 0.33, BMP with chloride 108, BUN/creatinine 24/1.28, magnesium 2.0, troponin less than 0.015, chest x-ray with no acute cardiopulmonary findings, EKG with SR without acute evidence of ischemia, mild sinus arrhythmia. In the ED patient administe red aspirin 324 mg p.o. x1. Past Medical History Past Medical History (Chronic Problems): Chronic Problems Hypertension (Chronic) Hyperlipidemia (Chronic) Former tobacco use (Chronic) Anxiety (Chronic) Obesity (BMI 30-39.9) (Chronic) Allergies No Known Allergies Allergy (Verified 12/22/20 10:53) Home Medications: Ambulatory Orders Medication Instructions Recorded Atorvastatin Calcium [Lipitor] 80 mg PO QHS 12/22/20 Buspirone HCl 10 mg PO BID 12/22/20 Cholecalciferol (VIT D3) [Vitamin 1,000 unit PO DAILY 12/22/20 D3] Metoprolol Tartrate [Lopressor 25 mg PO BID 12/22/20 (Beta Imani)] Surgical History: no surgical history - She denies any surgical history. Psychiatric History: Anxiety Lives: Spouse/ Significant Other Smoking Status: Former smoker - Patient quit cigarette tobacco usage approximately 45 years prior to current presentation noting that he started when he was a teenager and smoked approximately 1/2 pack/day cigarette tobacco usage until he quit. Tobacco Use: Non-smoker Alcohol: None Drugs: None - *Family History Maternal History Items: - - Patient with maternal family history of cancer, some type of female cancer that metastasized to her lungs, hypertension. Paternal History Items: Diabetes Review of Systems Constitutional: Reports: Weakness, Fatigue. Denies: Anorexia, Chills, Fever, Malaise, Weight Change HEENT: Reports: - - Sensation of tunnel vision with chest pressure onset.. Denies: Head Aches, Sinus Congestion, Sinus Drainage Cardiovascular: Reports: Chest Pressure, - - Near syncopal event.. Denies: Chest Pain, Palpitations Respiratory: Denies: Cough, Shortness of Breath, Shortness of breath at rest, Shortness of breath upon exertion, Sputum production Gastrointestinal: Denies: Abdominal Pain, Nausea, Vomiting Genitourinary: Denies: Dysuria Musculoskeletal: Denies: Joint Pain, Joint Tenderness Skin: Denies: Rash, Wounds Neurological: Reports: - - Describes whole body is feeling abnormal, tingling.. Denies: Focal weakness, Numbness, Tingling Psychiatric: Reports: Anxiety. Denies: Depression, Homicidal Ideations, Suicidal Ideations Endocrine: Reports: - - Notably diaphoretic. Hematologic/ Lymphatic: Denies: Easy Bruising, Easy Bleeding VTE Information - Inpt Only VTE Present on Admission: No VTE Mechan Device Prophylaxis: SCD's VTE Pharm Prophylaxis ordered?: Yes Subjective: Patient seated upright in the ED bed, no acute distress, notes being mildly fatigued otherwise resolution of prior symptoms. Objective: Physical Examination: General: awake, alert, oriented x 3 and cooperative, seated upright in the ED bed in no apparent distress, denies any further near syncopal sensation or chest pressure. Skin: normal color, turgor, no icterus, cyanosis. HEENT: AT/NC, EOMI, PERRLA, mildly dry MM, no carotid bruits or JVD noted although thickened neck does make examination difficult. Lungs: CTA bilaterally, moderate effort, mild decrease BL bases, no rales, ronchi or wheezing. Heart: Mildly bradycardic with regular rhythm; no gallop, rub audible. Abdomen: soft, obese, NTTP, ND, normal BS, no HSM. Extremities: no cyanosis, clubbing, or edema. Neurological: patient awake, alert, oriented as noted; cognitive function intact; pupils equally reactive to light and accomodation; cranial nerves II-XII grossly normal, moving all 4 extremities, no focal deficits, strength mildly global decrease given acute presentation but improving. Psychiatric: affect appears mildly fatigued otherwise normal, no acute evidence of depressive or anxiety feelings. - Physical Exam Vitals/I&O's: Vital Signs Temp Pulse Resp BP Pulse Ox 97.5 F L 66 17 145/80 H 96 12/22/20 10:53 12/22/20 11:40 12/22/20 11:35 12/22/20 11:40 12/22/20 11:35 Oxygen Delivery Method Room Air Weight: 230 lb Body Mass Index (BMI) 34.9 Laboratory Results 12/22/20 11:40: WBC 7.4, RBC 5.36, Hgb 16.4, Hct 49.8, MCV 92.9, MCH 30.6, MCHC 32.9, RDW Std Deviation 45.2 H, RDW Coeff of Ericka 13.4, Plt Count 163, MPV 10.6, Immature Gran % (Auto) 0.100, Neut % (Auto) 61.9, Lymph % (Auto) 27.7, [place] % (Auto) 7.6, Eos % (Auto) 2.3, Baso % (Auto) 0.4, Absolute Neuts (auto) 4.6, Absolute Lymphs (auto) 2.05, Nucleated RBC % 0 12/22/20 11:40: D-Dimer Quant (PE/DVT) 0.33 12/22/20 11:40: Sodium 141, Potassium 4.1, Chloride 108 H, Carbon Dioxide 29.0, Anion Gap 4 L, BUN 24 H, Creatinine 1.28, Estim Creat Clear Calc 51.21, Est GFR (MDRD) Af Amer 71, Est GFR (MDRD) Non-Af 59 L, BUN/Creatinine Ratio 18.8, Glucose 101, Calcium 9.5, Magnesium 2.0, Troponin I < 0.015 Assessment/Plan All Active Problems Near syncope (Acute) Chest pressure (Acute) The patient is a 70 y/o M w/ PMHx: HTN, HLD, Anxiety, Former tobacco use who presents to the [facility] ED on 12/22/20 with history of onset prior to ED presentation episode of near syncopal sensation with diaphoresis, tremulous with during drive to the ED for evaluation onset of sensation of tunnel vision and chest pressure which resolved prior to arrival. 1. Near Syncopal Event, Chest pressure: EKG in ED w/ EKG with SR without acute evidence of ischemia, mild sinus arrhythmia, CXR w/ no acute cardiopulmonary findings, initial trop normal. Will admit to PCU, place on a monitored bed to assure no acute myocardial infarction with serial cardiac enzymes and EKGs. Will maintain on fall precautions, obtain ECHO and if continued enzyme trending as well as repeat EKGs remain appropriate consider stress testing in AM and given patient near syncope event with his presentation would defer treadmill at this time. FLP in AM. Mag normal. ASA, NG, Morphine. 2. Hypertension: Continue home regimen including metoprolol with hold parameters, PRN hydralazine. 3. Hyperlipidemia: Continue home statin regimen. AM FLP. 4. Anxiety: We will continue patient BuSpar regimen. 5. Obesity: Weight loss and lifestyle changes encouraged. 6. Former tobacco use: Encourage continued tobacco cessation. 7. DVT prophylaxis: SCDs, Lovenox. 8. CODE status: Patient JUDE is his and notes that this is also set up with their physician, she is present for these conversations and also notes living will is currently in place. Discussed CODE status at length including difference between FULL code, DNR-CCA and DNR-CC status. Following discussions about the differences in these status, requested Full code status although did not give immediate answer and discussed with his . Noted given his age and not marked disease history Full code was appropriate. Advanced Care Planning Face to Face Time: 16 minutes. OBSV E&M: 13908 Initial observation care L3 Procedures: 87010 Advncd Care Plan 30 Min
--- NOTE | 2020-12-22 15:01 | ECHOCS_ITS ---
Reason For Study: Near Syncope Procedure This was a 2D Doppler, Color Flow transthoracic echocardiogram. The study was technically difficult. Contrast injection was performed. Exam performed portable in patient room. Left Ventricle Normal LV size. The estimated ejection fraction is 60 %. Unable to assess diastolic dysfunction. No regional wall motion abnormalities noted. Right Ventricle Normal RV size. Normal systolic function. Atria Normal left atrium. Normal right atrium. No doppler evidence for ASD. Bubble contrast study negative for right to left interatrial shunt. Mitral Valve There is moderate to severe mitral annular calcification. There is no mitral valve stenosis. Trivial mitral valve insufficiency. Tricuspid Valve There is no tricuspid stenosis. Trivial tricuspid valve insufficiency. Unable to estimate RV systolic pressure due to insufficient tricuspid regurgitant envelope. Aortic Valve Aortic sclerosis, no stenosis. Trisinus/trileaflet aortic valve. There is no aortic stenosis. No aortic valve insufficiency. Pulmonic Valve There is no pulmonic valvular stenosis. No pulmonic valve insufficiency. Great Vessels Normal aortic root. Pericardium/Pleural No pericardial effusion. Medication Diluted definity 3ml given slow IV push to enhance endocardial definition. Performed a rapid injection of agitated mix of 9 cc saline and 1cc air to assess for atrial septal defect. MMode/2D Measurements & Calculations LVIDd: 4.6 cm IVSd: 0.98 cm Ao root diam: 3.2 cm LVIDs: 2.3 cm LVPWd: 0.93 cm LA dimension: 4.0 cm RVDd: 3.5 cm FS: 49.0 % LAV(MOD-bp): 54.8 ml LA A4 area: 18.1 cm2 RA A4 area: 16.5 cm2 LAV(MOD-bp) Indexed: 25.0 ml/m2 LAV(MOD-sp2): 63.3 ml LAV(MOD-sp4): 46.4 ml Time Measurements MV dec time: 0.27 sec Doppler Measurements & Calculations MV E max heriberto: 134.0 cm/sec Lat Peak E' Heriberto: 10.5 cm/sec Med Peak E' Heriberto: 8.2 cm/sec MV A max heriberto: 132.5 cm/sec E/E' lat: 12.7 E/E' med: 16.3 MV E/A: 1.0 MV V2 max: 160.8 cm/sec MV P1/2t max heriberto: 161.8 cm/sec Ao V2 max: 153.2 cm/sec MV max P.3 mmHg MV P1/2t: 95.7 msec Ao max P.4 mmHg MV V2 mean: 91.3 cm/sec MV dec slope: 495.1 cm/sec2 MV mean P.9 mmHg MV V2 VTI: 52.3 cm MVA(P1/2t): 2.3 cm2 LV V1 max: 115.2 cm/sec PA V2 max: 110.7 cm/sec TR max heriberto: 302.0 cm/sec LV V1 max P.3 mmHg TR max P.5 mmHg Interpretation Summary The estimated ejection fraction is 60 %. Unable to assess diastolic dysfunction. Trivial mitral valve insufficiency. The study was technically difficult. Contrast injection was performed. Ordering Physician: Zamzam Mcdonnell Referring Physician: Hebert Brown Performed By: Chance Cordero RCS
--- NOTE | 2020-12-22 15:01 | EKG12_ITS ---
Test Reason : AM EKG Blood Pressure : / mmHG Vent. Rate : 067 BPM Atrial Rate : 067 BPM P-R Int : 162 ms QRS Dur : 086 ms QT Int : 420 ms P-R-T Axes : 039 011 041 degrees QTc Int : 443 ms Normal sinus rhythm with sinus arrhythmia Normal ECG When compared with ECG of 22-DEC-2020 16:16, MANUAL COMPARISON REQUIRED, DATA IS UNCONFIRMED Confirmed by NUPUR RUSH, TRAVIS ([id number]), publications editor DOLLY ALLISON ([id number]) on 12/27/2020 10:24:43 AM Referred By: SHANIQUA Confirmed By:TRAVIS ESPITIA MD
[2020-12-22] MEDS: 0.9% Normal Saline 1,000 ML 100 ML IV (16:09)
[2020-12-22] MEDS: Metoprolol Tartrate 25 MG Tablet PO (20:09)
[2020-12-22] MEDS: Famotidine 20 MG Tablet PO (20:09)
[2020-12-22] MEDS: busPIRone 5 MG Tablet 10 MG PO (20:09)
[2020-12-22] MEDS: Atorvastatin Calcium 80 MG Tablet PO (20:10)
[2020-12-23] VITALS (7 sets, daily range): BP systolic 146–171; BP diastolic 87–103; PULSE 64–78; RESP 16–18; TEMP 36.2–36.9; O2SAT 92–98
[2020-12-23] MEDS: 0.9% Normal Saline 1,000 ML 100 ML IV (02:47)
[2020-12-23 05:51] LABS: Absolute Lymphocyte Count 1.93 X10^3/uL (0.83-4.51); Absolute Neutrophil Count 5.3 X10^3/uL (2.0-7.7); Basophil# 0.02 X10^3/uL; Basophil% 0.3 % (0-1); Eosinophil# 0.13 X10^3/uL; Eosinophils% 1.6 % (0-5); Hematocrit 46.1 % (40-54); Hemoglobin 14.9 g/dL (13.0-16.5); Lymphocyte # 1.93 X10^3/ul (4.0); Lymphocyte % 24.4 % (19-41); Mean Corp Hgb Conc 32.3 g/dL (32-36); Mean Corpuscular Hgb 30.4 pg (27.0-32.0); Mean Corpuscular Volume 94.1 fL (80-94); Mean Platelet Vol. 10.3 fl (6.2-12.0); Monocyte# 0.54 X10^3/uL; Monocyte% 6.8 % (0-10); NRBC Flagged by Analyzer 0 % (0-5); Neutrophil # 5.27 X10^3/uL (2.7-7.7); Neutrophil % 66.6 % (47-70); Platelet Count 146 K/mm3 (150-450); RBC Distribution Width CV 13.5 % (11.6-14.6); RBC Distribution Width SD 45.9 fl (35.1-43.9); White Blood Count 7.9 K/mm3 (4.4-11.0)
[2020-12-23] MEDS: Aspirin E.C. 81 MG Tablet PO (05:54)
--- NOTE | 2020-12-23 05:55 | EKG12_ITS ---
Test Reason : CP ADMIT Blood Pressure : / mmHG Vent. Rate : 065 BPM Atrial Rate : 065 BPM P-R Int : 170 ms QRS Dur : 076 ms QT Int : 426 ms P-R-T Axes : 039 004 038 degrees QTc Int : 443 ms Normal sinus rhythm Normal ECG Confirmed by NUPUR RUSH, TRAVIS ([id number]), editorial director DOLLY ALLISON ([id number]) on 12/27/2020 10:25:07 AM Referred By: SHANIQUA Confirmed By:TRAVIS ESPITIA MD
[2020-12-23 06:25] LABS: AST(SGOT) 27 U/L (15-37); Alanine Aminotransfer ALT/SGPT 36 U/L (16-61); Albumin, Serum 3.3 g/dL (3.2-5.0); Alkaline Phosphatase 61 U/L (45-117); Anion Gap 5 (5-15); BUN 17 mg/dL (7-18); Calcium,Total 8.6 mg/dL (8.5-10.1); Chloride 109 mmol/L (98-107); Cholesterol 155 mg/dL (200); Creatinine, Serum 1.21 mg/dL (0.70-1.30); EST Glomerular Filtration Rate 63 mL/min (>60); Est Glom Filt Rate - Afr Amer 76 mL/min (>60); Estimated Creatinine Clearance 54.17 ml/min; Globulin 3.3 g/dL (2.2-4.2); Glucose 114 mg/dL (74-106); High Density Lipoprotein 28 mg/dL; Potassium 4.5 mmol/L (3.5-5.1); Protein, Total 6.6 g/dL (6.4-8.2); Sodium Level 140 mmol/L (136-145); Triglycerides 134 mg/dL; Very Low Density Lipoprotein 27 mg/dL (5-40)
[2020-12-23 06:27] LABS: International Normalized Ratio 1.2; Prothrombin Time (Protime)PT. 14.2 SECONDS (11.7-14.9)
[2020-12-23 06:28] LABS: Partial Thromboplast Time 29.5 Seconds (24.1-36.2)
--- NOTE | 2020-12-23 12:22 | STRESSREP_ITS ---
Stress Test Report Date: 12/23/2020 Procedure: Pharmacologic stress nuclear imaging study Indications: Chest pain Consent: Per the patient Procedure: The patient underwent pharmacologic (Regadenoson) evaluation with a peak heart rate of 107 beats per minute (71%predicted maximal heart rate) and a peak blood pressure of 152/82 mmHg. The baseline ECG demonstrated normal sinus rhythm. EKG during lexiscan infusion revealed no significant ischemic changes. EKG post infusion revealed no significant ischemic changes [There were no cardiac dysrhythmias pretest, during pharmacologic infusion, or recovery]. [There was no complaint of chest discomfort during pharmacologic infusion or recovery]. The examination was discontinued secondary to completion of protocol. Impression: 1. Lexiscan stress test test is negative for Lexiscan infusion induced EKG changes of ischemia. 2. Lexiscan stress test test is negative for Lexiscan infusion induced chest pain. 3. Results of the nuclear portion of the test is as below Myocardial perfusion imaging study: Technique: The patient was injected with 14.2 millicuries of technetium 99m Cardiolite and subsequently rest SPECT Cardiolite nuclear imaging was obtained in the horizontal long, vertical long, and short axis views. The patient underwent pharmacologic [Regadenoson 0.4mg] evaluation. Please see above for details. The patient was injected with 45 millicuries of technetium 99m Cardiolite and subsequently stress SPECT Cardiolite nuclear imaging was obtained in the horizontal long, vertical long, and short axis views. A gated Cardiolite study at peak stress was obtained. Interpretation: Rest and stress SPECT Cardiolite nuclear imaging status post realignment, normalization, and attenuation correction demonstrate decreased radioisotope uptake in the inferior wall on both the rest and stress images prior to attenuation correction. After attenuation correction there is overall normal myocardial radioisotope uptake. Gated images could not be obtained []. LVEF could not be estimated as gated images could not be obtained []%. Impression: 1. There is no evidence of significant ischemia or infarction. 2. Ejection fraction could not be estimated as the gated images could not be obtained. This note was generated with [email or web address] software. It may contain incorrect words, spelling, and punctuation that were not noted in checking the note before signing.
[2020-12-23] MEDS: busPIRone 5 MG Tablet 10 MG PO (12:46)
[2020-12-23] MEDS: Famotidine 20 MG Tablet PO (12:48)
[2020-12-23] MEDS: Metoprolol Tartrate 25 MG Tablet PO (12:50)
--- NOTE | 2020-12-23 12:59 | PCM.DC ---
- Discharge Diagnoses Current Active Problems: Current Active and Chronic Problems Near syncope (Acute) Chest pressure (Acute) Hypertension (Chronic) Hyperlipidemia (Chronic) Former tobacco use (Chronic) Anxiety (Chronic) Obesity (BMI 30-39.9) (Chronic) You will use the following diet at home:: Cardiac Your food should be the consistency of: Regular Your liquids should be the consistency of: Regular/Thin Discharge Activity: Return to Normal Activity Weight Bearing Status: Weight bearing as tolerated Call your doctor if you observe: Shortness of breath, Dizziness, Fainting spells, Swelling in the ankles, Chest pain, Increased palpitations (irregular heartbeat) Instructions: ED Fainting, Vagal Reaction, ED Chest Pain, Noncardiac Allergies/Adverse Reactions: Allergies No Known Allergies Allergy (Verified 12/22/20 10:53) Medications to take at Discharge Atorvastatin Calcium [Lipitor] 80 mg PO QHS 12/22/20 Buspirone HCl 10 mg PO BID 12/22/20 Cholecalciferol (VIT D3) [Vitamin D3] 1,000 unit PO DAILY 12/22/20 Metoprolol Tartrate [Lopressor (beta moon)] 25 mg PO BID 12/22/20 Nitroglycerin (INPATIENT USE) [Nitrostat] 0.4 mg SL Q5M PRN #30 tab.subl 12/23/20 The following prescriptions were given: Nitroglycerin (INPATIENT USE) [Nitrostat] 0.4 mg SL Q5M PRN #30 tab.subl PRN Reason: Cardiac/Chest Pain Transmission Status: Pending to [facility]/pharmacy #[id number] Primary Care Physician: Hebert Brown MD [Primary Care Provider] - Please follow up with your Primary Care Physician in: 1-2 weeks Test Results: Test results from this visit will be discussed in further detail at your follow-up appointment, if applicable. Proposed Discharge Date: 12/23/20
--- NOTE | 2020-12-23 13:07 | DS.PCM_ITS ---
Discharge Date and Diagnosis - Problem List Patient Problems: Active and Suspected Problems Near syncope (Acute) Chest pressure (Acute) Date of Admission: 12/22/20 Date of Discharge: 12/23/20 - Primary Discharge Diagnosis Acute Problems: Active Problems Near syncope (Acute) Chest pressure (Acute) - Secondary Discharge Diagnosis Chronic Problems: Chronic Problems Hypertension (Chronic) Hyperlipidemia (Chronic) Former tobacco use (Chronic) Anxiety (Chronic) Obesity (BMI 30-39.9) (Chronic) Hospital Course and Treatment Imaging Results: 12/23/20 05:55 Nuclear Stress Test - Chemical [NM] AM (NON MEDS) Operations: None Procedures: 2-D Echocardiogram, Stress test Summary of Care Provided: The patient is a 70 year old M with a past medical history as outlined who was admitted through the ED on 12/22/2020 with a complaint of weakness and diapho resis. He also had assisted chest pressure. He denied having any symptoms like this previously. Vitals were stable and CBC was unremarkable. D-dimer was not elevated. BMP was also unremarkable. Troponins x3 were negative and chest x- ray showed no acute cardiopulmonary findings. EKG also showed no acute ST changes and showed mild sinus arrhythmia. He was admitted and managed for near syncope and chest pain to rule out ACS. He had a stress test on 12/23/2020 which showed no evidence of ischemia or infarction and EF could not be estimated as gated images could not be obtained. 2D echo done showed EF of 60% with no no systolic abnormalities and no regional wall motion abnormalities; unable to assess diastolic dysfunction. There was trivial mitral valve insufficiency. Patient remained stable and was discharged on 12/23/2020. He is to follow-up with his primary care doctor in 1 to 2 weeks. Patient seen and examined prior to charge. He had no complaints and felt well. Review of systems otherwise negative. Labs and vitals reviewed. Medication reviewed and reconciled. Patient Problems: Active and Suspected Problems Near syncope (Acute) Chest pressure (Acute) - Physical Exam Vitals/I&O's: Vital Signs Temp Pulse Resp BP Pulse Ox 97.2 F L 76 18 158/99 H 92 12/23/20 12:50 12/23/20 12:50 12/23/20 12:50 12/23/20 12:50 12/23/20 12:50 Oxygen Delivery Method Room Air Weight: 237 lb 10.533 oz Body Mass Index (BMI) 35.9 Intake and Output for Last 24 Hours 12/21/20 12/22/20 12/23/20 23:59 23:59 23:59 Intake Total 240 / 240 Balance 240 / 240 General: Alert, Oriented x3, Cooperative HEENT: Atraumatic, PERRLA, EOMI, Normocephalic Oral: Moist Mucosa Neck: Supple, No JVD, Negative Carotid Bruits Lungs: Clear to auscultation, Normal air movement Cardiovascular: Regular rate, No murmurs Abdomen: Bowel Sounds Present, Soft, Non Tender Extremities: No edema, Capillary Refill Less than 3 Seconds Skin: No rashes, No breakdown Musculoskeletal: No Tenderness to Palpation of Joints or Extremities Neurological: Cranial nerves II-XII grossly intact Psych/Mental Status: Normal Affect, Appropriate, Alert and oriented to time, place, person, mood and affect Laboratory Results 12/22/20 15:47: Troponin I < 0.015 12/22/20 18:09: Troponin I < 0.015 12/23/20 05:40: WBC 7.9, RBC 4.90, Hgb 14.9, Hct 46.1, MCV 94.1 H, MCH 30.4, MCHC 32.3, RDW Std Deviation 45.9 H, RDW Coeff of Ericka 13.5, Plt Count 146 L, MPV 10.3, Immature Gran % (Auto) 0.300, Neut % (Auto) 66.6, Lymph % (Auto) 24.4, [place] % (Auto) 6.8, Eos % (Auto) 1.6, Baso % (Auto) 0.3, Absolute Neuts (auto) 5.3, Absolute Lymphs (auto) 1.93, Nucleated RBC % 0 12/23/20 05:40: PT 14.2, INR 1.2, APTT 29.5 12/23/20 05:40: Sodium 140, Potassium 4.5, Chloride 109 H, Carbon Dioxide 26.0, Anion Gap 5, BUN 17, Creatinine 1.21, Estim Creat Clear Calc 54.17, Est GFR (MDRD) Af Amer 76, Est GFR (MDRD) Non-Af 63, BUN/Creatinine Ratio 14.0, Glucose 114 H, Calcium 8.6, Total Bilirubin 1.10 H, AST 27, ALT 36, Alkaline Phosphatase 61, Total Protein 6.6, Albumin 3.3, Globulin 3.3, Albumin/Globulin Ratio 1.0, Triglycerides 134, Cholesterol 155, LDL Cholesterol 100, VLDL Cholesterol 27, HDL Cholesterol 28 L Interpretation Summary The estimated ejection fraction is 60 %. Unable to assess diastolic dysfunction. Trivial mitral valve insufficiency. The study was technically difficult. Contrast injection was performed. Current Medications Acetaminophen (Acetaminophen 325 Mg Tablet) 650 mg PO Q6H PRN PRN PRN Reason: Pain Score 1-10/Temp > 100.7 F Al Hydroxide/Mg Hydroxide (Mag Hydrox/Al Hydrox/Simeth 30 Ml Udc) 30 ml PO Q6H PRN PRN PRN Reason: Gastric Burning Albuterol Sulfate (Albuterol 2.5 Mg/3 Ml Vial.Neb.) 2.5 mg INHALATION Q2H PRN PRN PRN Reason: Dyspnea, wheezing Aspirin (Aspirin E.C. 81 Mg Tablet) 81 mg PO DAILY@0800 [facility] Last Admin: 12/23/20 05:54 Dose: 81 mg Documented by: Atorvastatin Calcium (Atorvastatin Calcium 80 Mg Tablet) 80 mg PO QHS [facility] Last Admin: 12/22/20 20:10 Dose: 80 mg Documented by: Buspirone HCl (Buspirone 5 Mg Tablet) 10 mg PO BID [facility] Last Admin: 12/23/20 12:46 Dose: 10 mg Documented by: Cholecalciferol (Cholecalciferol (Vit D3) 1,000 Unit (25mcg)) 1,000 unit PO DAILYCM [facility] Last Admin: 12/23/20 12:46 Dose: 1,000 unit Documented by: Enoxaparin Sodium (Enoxaparin 40 Mg/0.4 Ml Syringe) 40 mg SC DAILY [facility] Last Admin: 12/23/20 12:53 Dose: Not Given Documented by: Famotidine (Famotidine 20 Mg Tablet) 20 mg PO BID [facility] Last Admin: 12/23/20 12:48 Dose: 20 mg Documented by: Guaifenesin (Guaifenesin 10 Ml Udc (200mg/10ml)) 20 ml PO Q4H PRN PRN PRN Reason: COUGH Sodium Chloride () 1,000 mls @ 100 mls/hr IV .Q10H [facility] Last Infusion: 12/23/20 08:30 Dose: 0 mls/hr Documented by: Magnesium Hydroxide (Magnesium Hydroxide 30 Ml Udc) 30 ml PO DAILY PRN PRN PRN Reason: Constipation Melatonin (Melatonin 3 Mg Tablet) 3 mg PO QHS PRN PRN PRN Reason: INSOMNIA Metoprolol Tartrate (Metoprolol Tartrate 25 Mg Tablet) 25 mg PO BID [facility] Last Admin: 12/23/20 12:50 Dose: 25 mg Documented by: Morphine Sulfate (Morphine 2 Mg/Ml Syringe) 2 mg IV Q3H PRN PRN PRN Reason: Pain Score 6-10 Nitroglycerin (Nitroglycerin (Inpatient Use) 0.4 Mg Tab.Subl) 0.4 mg SL Q5M PRN PRN Reason: CARDIAC/CHEST PAIN Ondansetron HCl (Ondansetron 4 Mg/2 Ml Vial) 4 mg IV Q8H PRN PRN PRN Reason: NAUSEA/VOMITING Oxycodone HCl (Oxycodone 5 Mg Tablet) 5 mg PO Q4H PRN PRN PRN Reason: Pain Score 4-5 Prochlorperazine Edisylate (Prochlorperazine 10 Mg/2 Ml Vial) 5 mg IV Q4H PRN PRN PRN Reason: Breakthrough Nausea/Vomiting Psyllium Hydrophilic Mucilloid (Psyllium 1 Packet) 1 packet PO DAILY PRN PRN PRN Reason: Constipation Senna/Docusate Sodium (Senna/Docusate Sodium 1 Tablet) 2 tablet PO BID PRN PRN PRN Reason: Constipation Sodium Chloride (0.9% Saline Lock 10 Ml Syringe) 10 - 40 ml IV UD PRN PRN Reason: SALINE FLUSH Throat Lozenges (Benzocaine/Menthol 1 Lozenge) 1 lozenge MUCOUS MEM Q2H PRN PRN PRN Reason: SORE THROAT Discharge Diet: Low fat/ Low Cholesterol Discharge Activity: Return to Normal Activity Weight Bearing Status: Weight bearing as tolerated Call your doctor if you observe: Shortness of breath, Dizziness, Fainting spells, Swelling in the ankles, Chest pain, Increased palpitations (irregular heartbeat) Home Medications: Medications to take at Discharge Atorvastatin Calcium [Lipitor] 80 mg PO QHS 12/22/20 Buspirone HCl 10 mg PO BID 12/22/20 Cholecalciferol (VIT D3) [Vitamin D3] 1,000 unit PO DAILY 12/22/20 Metoprolol Tartrate [Lopressor (beta moon)] 25 mg PO BID 12/22/20 Nitroglycerin (INPATIENT USE) [Nitrostat] 0.4 mg SL Q5M PRN #30 tab.subl 12/23/20 Following Prescriptions Were Given to Patient: Nitroglycerin (INPATIENT USE) [Nitrostat] 0.4 mg SL Q5M PRN #30 tab.subl PRN Reason: Cardiac/Chest Pain Transmission Status: Received by [facility]/pharmacy #[id number] Primary Care Physician: Hebert Brown MD [Primary Care Provider] - Please follow up with your Primary Care Physician in: 1-2 weeks Patient Instructions: ED Chest Pain, Noncardiac, ED Fainting, Vagal Reaction Disposition: Home Minutes spent on discharge:: 35 Patient Condition:: Stable Medical Necessity - Tobacco Use Smoking Status: Former smoker Tobacco Use: Cigarettes, Cigars Meaningful Use Info Meaningful Use Diagnoses (Choose all that apply): None applicable OBSV E&M: 72255 Observation care discharge
== END 2020-12-23 13:51 | disposition home or self-care (01) ==
LOC: ED 11:39 → PCU 13:39
PROVIDERS: Admitting Provider Family Medicine; Emergency Provider Student in an Organized Health Care Education/Training Program; PCP Family Medicine; Visit Provider Student in an Organized Health Care Education/Training Program
DX: R07.89 Other chest pain (principal); R55 Syncope and collapse; E78.5 Hyperlipidemia, unspecified; I10 Essential (primary) hypertension; F41.9 Anxiety disorder, unspecified; I49.8 Other specified cardiac arrhythmias; E66.9 Obesity, unspecified; Z79.899 Other long term (current) drug therapy; Z68.36 Body mass index [BMI] 36.0-36.9, adult; Z87.891 Personal history of nicotine dependence
CPT/HCPCS: 36415; 71045; 78452; 80048; 80053; 80061; 83735; 84484; 85025; 85379; 85610; 85730; 93005; 93017; 93306; 96360; 96361; 99218; 99251; 99285; A9500; J7030; Q9957; A4216; C8929; G0378; G0463; J2785

== ENCOUNTER → 2021-07-13 09:33 | Outpatient (CLI) | payer MEDICARE, OTHER, SELFPAY ==
[2021-07-13 12:38] LABS: PSA,Total - Annual Screen 4.14 ng/mL (0.00-4.00)
== END ==
PROVIDERS: Nurse Practitioner Family; PCP Family Medicine; Referring Provider Family Medicine
DX: Z00.00 Encounter for general adult medical examination without abnormal findings (principal); Z12.5 Encounter for screening for malignant neoplasm of prostate
CPT/HCPCS: 36415; 84153; G0103

== ENCOUNTER → 2021-09-11 14:06 | Outpatient (CLI) | payer MEDICARE, OTHER, SELFPAY ==
[2021-09-11 15:19] LABS: ALB/GLOB Ratio 0.9 RATIO (0.9-2.4); AST(SGOT) 38 U/L (15-37); Alanine Aminotransfer ALT/SGPT 38 U/L (16-61); Albumin, Serum 3.6 g/dL (3.2-5.0); Alkaline Phosphatase 84 U/L (45-117); Anion Gap 7 (5-15); BUN 26 mg/dL (7-18); BUN/Creat Ratio 15.7 RATIO (10-20); Chloride 109 mmol/L (98-107); Creatinine, Serum 1.66 mg/dL (0.70-1.30); EST Glomerular Filtration Rate 43 mL/min (>60); Est Glom Filt Rate - Afr Amer 53 mL/min (>60); Globulin 3.8 g/dL (2.2-4.2); Glucose 107 mg/dL (74-106); Potassium 3.9 mmol/L (3.5-5.1); Protein, Total 7.4 g/dL (6.4-8.2); Sodium Level 141 mmol/L (136-145)
[2021-09-11 15:29] LABS: Microalbumin,Random Urine 33.9 mg/L (NO RANGE EST.); Microalbumin:Creatinine Ratio 26.7 mg/g CRE (<30 mg/g CRE)
== END ==
PROVIDERS: PCP Family Medicine; Referring Provider Family Medicine; Visit Provider Family Medicine
DX: I10 Essential (primary) hypertension (principal)
CPT/HCPCS: 36415; 80053; 82043; 82570

== ENCOUNTER 2022-01-11 10:06 | Outpatient (CLI) | payer MEDICARE, OTHER, SELFPAY ==
[2022-01-11 12:48] LABS: Albumin, Serum 3.9 g/dL (3.2-5.0); BUN 30 mg/dL (7-18); BUN/Creat Ratio 21.9 RATIO (10-20); Calcium,Total 9.3 mg/dL (8.5-10.1); Chloride 110 mmol/L (98-107); Creatinine, Serum 1.37 mg/dL (0.70-1.30); EST Glomerular Filtration Rate 54 mL/min (>60); Est Glom Filt Rate - Afr Amer 66 mL/min (>60); Glucose 101 mg/dL (74-106); PSA,Total- Diagnostic 4.49 ng/mL (0.0-4.0); Phosphorus 3.4 mg/dL (2.5-4.9); Potassium 4.3 mmol/L (3.5-5.1); Sodium Level 139 mmol/L (136-145)
[2022-01-15 11:32] LABS: Testosterone, % Free 2.41 % (1.50-4.20); Testosterone, Total 415 ng/dL (264-916)
== END 2022-01-11 23:59 | disposition home or self-care (01) ==
LOC: MFPLAB 10:08
PROVIDERS: PCP Family Medicine; Referring Provider Family Medicine; Visit Provider Family Medicine
DX: R97.20 Elevated prostate specific antigen [PSA] (principal); R79.89 Other specified abnormal findings of blood chemistry; N52.9 Male erectile dysfunction, unspecified
CPT/HCPCS: 36415; 80069; 84153; 84402; 84403

== ENCOUNTER → 2022-07-30 | Outpatient (CLI) | payer MEDICARE, OTHER, SELFPAY ==
[2022-07-30 10:25] LABS: Microalbumin,Random Urine 8.7 mg/L (NO RANGE EST.); Microalbumin:Creatinine Ratio 7.2 mg/g CRE (<30 mg/g CRE)
[2022-07-30 10:26] LABS: Vitamin D,25 Hydroxy 33.7 ng/mL
[2022-07-30 10:54] LABS: AST(SGOT) 27 U/L (15-37); Alanine Aminotransfer ALT/SGPT 35 U/L (16-61); Albumin, Serum 3.7 g/dL (3.2-5.0); Alkaline Phosphatase 77 U/L (45-117); Anion Gap 5 (5-15); BUN 22 mg/dL (7-18); BUN/Creat Ratio 17.2 RATIO (10-20); Calcium,Total 9.7 mg/dL (8.5-10.1); Chloride 109 mmol/L (98-107); Cholesterol 147 mg/dL (200); Creatinine, Serum 1.28 mg/dL (0.70-1.30); EST Glomerular Filtration Rate 59 mL/min (>60); Est Glom Filt Rate - Afr Amer 71 mL/min (>60); Globulin 3.6 g/dL (2.2-4.2); Glucose 115 mg/dL (74-106); High Density Lipoprotein 29 mg/dL; Potassium 4.3 mmol/L (3.5-5.1); Protein, Total 7.3 g/dL (6.4-8.2); Sodium Level 139 mmol/L (136-145); Triglycerides 134 mg/dL; Very Low Density Lipoprotein 27 mg/dL (5-40)
== END | disposition home or self-care (01) ==
LOC: MFPLAB 08:34
PROVIDERS: PCP Family Medicine; Referring Provider Family Medicine; Visit Provider Family Medicine
DX: I10 Essential (primary) hypertension (principal); E78.00 Pure hypercholesterolemia, unspecified; E55.9 Vitamin D deficiency, unspecified; R97.20 Elevated prostate specific antigen [PSA]
CPT/HCPCS: 36415; 80053; 80061; 82043; 82306; 82570

== ENCOUNTER → 2022-12-31 | Outpatient (CLI) | payer MEDICARE, OTHER, SELFPAY ==
[2022-12-31 15:51] LABS: ALB/GLOB Ratio 1.2 RATIO (0.9-2.4); AST(SGOT) 32 U/L (15-37); Alanine Aminotransfer ALT/SGPT 34 U/L (16-61); Albumin, Serum 4.2 g/dL (3.2-5.0); Alkaline Phosphatase 66 U/L (45-117); Anion Gap 7 (5-15); BUN 24 mg/dL (7-18); BUN/Creat Ratio 18.2 RATIO (10-20); Calcium,Total 9.6 mg/dL (8.5-10.1); Chloride 103 mmol/L (98-107); Creatinine, Serum 1.32 mg/dL (0.70-1.30); EST Glomerular Filtration Rate 56 mL/min (>60); Est Glom Filt Rate - Afr Amer 68 mL/min (>60); Globulin 3.4 g/dL (2.2-4.2); Glucose 79 mg/dL (74-106); Potassium 4.9 mmol/L (3.5-5.1); Protein, Total 7.6 g/dL (6.4-8.2); Sodium Level 138 mmol/L (136-145)
== END | disposition home or self-care (01) ==
LOC: MFPLAB 12:26
PROVIDERS: PCP Family Medicine; Referring Provider Family Medicine; Visit Provider Family Medicine
DX: I10 Essential (primary) hypertension (principal)
CPT/HCPCS: 36415; 80053

== ENCOUNTER → 2023-07-22 | Outpatient (CLI) | payer MEDICARE, OTHER, SELFPAY ==
[2023-07-22 17:25] LABS: Absolute Lymphocyte Count 1.91 X10^3/uL (0.83-4.51); Absolute Neutrophil Count 4.3 X10^3/uL (2.0-7.7); Basophil# 0.02 X10^3/uL; Basophil% 0.3 % (0-1); Eosinophil# 0.18 X10^3/uL; Eosinophils% 2.6 % (0-5); Hematocrit 47.8 % (40-54); Hemoglobin 15.2 g/dL (13.0-16.5); Lymphocyte # 1.91 X10^3/ul (0.83-4.51); Lymphocyte % 27.4 % (19-41); Mean Corp Hgb Conc 31.8 g/dL (32-36); Mean Corpuscular Hgb 30.3 pg (27.0-32.0); Mean Corpuscular Volume 95.4 fL (80-94); Mean Platelet Vol. 11.3 fl (6.2-12.0); Monocyte# 0.54 X10^3/uL; Monocyte% 7.7 % (0-10); NRBC Flagged by Analyzer 0 % (0-5); Neutrophil # 4.31 X10^3/uL (2.7-7.7); Neutrophil % 61.7 % (47-70); Platelet Count 181 K/mm3 (150-450); RBC Distribution Width CV 13.6 % (11.6-14.6); Red Blood Count 5.01 M/mm3 (4.6-6.2)
[2023-07-22 18:07] LABS: AST(SGOT) 29 U/L (15-37); Alanine Aminotransfer ALT/SGPT 36 U/L (16-61); Albumin, Serum 3.6 g/dL (3.2-5.0); Alkaline Phosphatase 89 U/L (45-117); Anion Gap 5 (5-15); BUN 21 mg/dL (7-18); BUN/Creat Ratio 18.3 RATIO (10-20); Calcium,Total 8.8 mg/dL (8.5-10.1); Chloride 106 mmol/L (98-107); Cholesterol 147 mg/dL (200); Creatinine, Serum 1.15 mg/dL (0.70-1.30); EST Glomerular Filtration Rate 66 mL/min (>60); Est Glom Filt Rate - Afr Amer 80 mL/min (>60); Globulin 3.6 g/dL (2.2-4.2); Glucose 103 mg/dL (74-106); High Density Lipoprotein 28 mg/dL; PSA,Total- Diagnostic 3.72 ng/mL (0.0-4.0); Potassium 4.4 mmol/L (3.5-5.1); Protein, Total 7.2 g/dL (6.4-8.2); Sodium Level 138 mmol/L (136-145); Thyroid Stim Hormone (TSH) 1.73 uIU/mL (0.358-3.74)
== END | disposition home or self-care (01) ==
LOC: MFPLAB 14:42
PROVIDERS: PCP Family Medicine; Visit Provider Family Medicine
DX: E78.00 Pure hypercholesterolemia, unspecified (principal); R01.0 Benign and innocent cardiac murmurs; I10 Essential (primary) hypertension; R97.20 Elevated prostate specific antigen [PSA]
CPT/HCPCS: 36415; 80053; 82465; 83718; 84153; 84443; 85025

== ENCOUNTER → 2024-01-20 | Outpatient (CLI) | payer MEDICARE, OTHER, SELFPAY ==
[2024-01-20 14:19] LABS: Anion Gap 6 (5-15); BUN 27 mg/dL (7-18); BUN/Creat Ratio 19.4 RATIO (10-20); Calcium,Total 9.1 mg/dL (8.5-10.1); Chloride 111 mmol/L (98-107); Creatinine, Serum 1.39 mg/dL (0.70-1.30); EST Glomerular Filtration Rate 53 mL/min (>60); Est Glom Filt Rate - Afr Amer 64 mL/min (>60); Glucose 118 mg/dL (74-106); Potassium 3.9 mmol/L (3.5-5.1); Sodium Level 141 mmol/L (136-145)
[2024-01-20 14:51] LABS: Microalbumin,Random Urine 10.6 mg/L (NO RANGE EST.)
== END | disposition home or self-care (01) ==
LOC: MFPLAB 08:44
PROVIDERS: PCP Family Medicine; Visit Provider Family Medicine
DX: I10 Essential (primary) hypertension (principal)
CPT/HCPCS: 36415; 80048; 82043; 82570

== ENCOUNTER → 2024-04-27 | Outpatient (CLI) | payer MEDICARE, OTHER, SELFPAY ==
--- NOTE | 2024-04-27 | IMM_PTH ---
PATIENT: QUIRINO CORDERO LOC: [facility] U#:[id number] AGE/SX: 74/M ROOM: RE04/27/[address]: Dr. Bartolo Child MD : 1950 BED: DIS: 04/27/2024 SPEC #: [id number] RECD: 04/29/24 10:41 STATUS: MADIE REQ #: [id number] AYSE: 04/27/24 00:[address]: Bartolo Child DEPT: IMMUNOHISTOCHEMISTRY RECD BY: Biju Gil ENTERED: 04/29/24 10:42 SP TYPE: IMMUNO OTHR DR: Dr. Hebert Brown MD Tissues: Tongue, NOS Procedures: CK20 (add) CK5-6 (add) CK7 (add) CK8 (add) KI-67 (add) P16 (add) P53 (add) 34BE12 (add) Pankeratin (initial) P40 (add) PHYSICIAN & INSTITUTION [address] [address] SPECIMEN INFORMATION: Tissue Source: Left lateral tongue mass Clinical Info: Left lateral tongue mass Specimen Number: [id number] CPT code: 27710,75205l8 METHODOLOGY: Deparaffinized sections of prefer/formalin-fixed tissue or PAP/DQ stained slides are incubated with monoclonal/polyclonal antibodies/oligonucleotide probes. Localization is made via biotin free immunoperoxidase method. Appropriate controls are performed and reacted as expected. Results on target cell population are indicated in the following table: RESULTS: ANTIBODY / CLONE RESULT AE1-3 (AE1/AE3/PCK26) positive CK7 (OV-TL12/30) positive CK8 (18hcycW37) positive, focal, weak CK20 (KS20.8) negative 34BE12 (34BE12) positive P40 (BC28) positive, weak P16 (E6H4) positive, focal, patchy staining P53 (DO-7) negative (null pattern) Ki-67 (30-9) positive, low ~15% CK5-6 (D5 & 1684) positive These tests were developed and their performance characteristics determined by [facility]. They may not have been cleared or approved by the U.S. Food and Drug Administration. The FDA has determined that such clearance or approval is not necessary. The above immunohistochemical/dualISH markers are ordered and reviewed by the Pathologist. INTERPRETATION: Left lateral tongue mass, biopsy: Invasive moderate differentiated squamous cell carcinoma. EBONY/ 04/30/2024
--- NOTE | 2024-04-27 08:40 | LES_PTH ---
PATIENT: QUIRINO CORDERO LOC: [facility] U#:[id number] AGE/SX: 74/M ROOM: RE04/27/[address]: Dr. Bartolo Child MD : 1950 BED: DIS: 04/27/2024 SPEC #: [id number] RECD: 04/28/24 09:36 STATUS: MADIE REMarisela #: [id number] AYSE: 04/27/24 08:[address]: Bartolo Child DEPT: SURGICAL PATHOLOGY RECD BY: Liam Rios ENTERED: 04/28/24 09:40 SP TYPE: Lesion OTHR DR: Dr. Hebert Brown MD Tissues: Tongue, NOS Procedures: Surgery Specimen Level IV HEADER OPERATION: Permanent pathology PRE-OP DIAGNOSIS: Left lateral tongue mass TISSUE SUBMITTED: Left lateral tongue mass MICROSCOPIC DIAGNOSIS Left lateral tongue mass, biopsy: Invasive moderately differentiated squamous cell carcinoma. See comment. EBONY/ 04/29/2024 COMMENT Immunohistochemistry ([id number]) supports the above diagnosis. Case has been reviewed in consultation with Dr. Redd who concurs with the above diagnosis. IDC:AM MICROSCOPIC DESCRIPTION Slides are reviewed. GROSS DESCRIPTION Received in fixative is one container labeled with the patient's name and designated Oral lesion biopsy. The specimen consists of a piece of mucosal tissue measuring 0.5 x 0.3 x 0.1cm. This specimen is inked and submitted entirely in one cassette. EBONY/ 04/28/2024 TC:0 CPT:81662
== END | disposition home or self-care (01) ==
LOC: LABSPEC 15:32
PROVIDERS: PCP Family Medicine; Referring Provider Otolaryngology; Visit Provider Otolaryngology
DX: K14.8 Other diseases of tongue (principal)
CPT/HCPCS: 88305; 88341; 88342

== ENCOUNTER → 2024-07-08 | Outpatient (CLI) | payer MEDICARE, OTHER, SELFPAY | END | disposition home or self-care (01) | LOC: RAD 10:06 | PROVIDERS: PCP Family Medicine; Referring Provider Student in an Organized Health Care Education/Training Program; Visit Provider Student in an Organized Health Care Education/Training Program | DX: Z12.5 Encounter for screening for malignant neoplasm of prostate (principal); 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, unspecified; C02.8 Malignant neoplasm of overlapping sites of tongue; Z87.891 Personal history of nicotine dependence | CPT/HCPCS: 36415; 74230; 80053; 83735; 84100; 84153; 85025; G0103 ==

== ENCOUNTER 2024-07-15 05:44 | Day surgery (SDC) | payer MEDICARE, OTHER, SELFPAY ==
[2024-07-15] VITALS (8 sets, daily range): BP systolic 111–145; BP diastolic 58–77; PULSE 50–97; RESP 16–18; TEMP 35.8–36.2; O2SAT 93–100; BMI 34.2
[2024-07-15] MEDS: Lactated Ringers 1,000 ML 15 ML IV (06:23)
--- NOTE | 2024-07-15 06:52 | PRE.ANES_ITS ---
ASA Classification* ASA Classification ASA Classification: 2 Assessment & Plan Anesthesia* Anesthesia Assessment Anesthesia Assessment: Discussed sedation and/or anesthesia options, risks, benefits, and alternatives with patient/parents/legal guardian/POA. Questions invited. The patient/parents/legal guardian/POA seems to understand and agrees to proceed with anesthesia plan. Reviewed the physical assessment, medical history, allergy history and patient home medications list prior to surgery/procedure/anesthetic and documented any changes. Performed airway and anesthesia risk assessments. Anesthesia Type Anesthesia Type: MAC Anesthesia Focused Assessment* Temperature: 97.1 F Pulse Rate: 57 Blood Pressure: 145/71 Respiratory Rate: 18 Pulse Ox: 97 Airway Assessment Mouth opens: >3 cm Mallampati Score: II Focused Labs Anesthesia Preop lab: CBC WBC 7.0 K/mm3 (4.4-11.0) 07/08/24 09:55 RBC 4.54 M/mm3 (4.6-6.2) L 07/08/24 09:55 Hgb 13.7 g/dL (13.0-16.5) 07/08/24 09:55 Hct 41.9 % (40-54) 07/08/24 09:55 Plt Count 173 K/mm3 (150-450) 07/08/24 09:55 CHEMISTRY Potassium 4.1 mmol/L (3.5-5.1) 07/08/24 09:55 Sodium 139 mmol/L (136-145) 07/08/24 09:55 Magnesium 1.9 mg/dL (1.6-2.6) 07/08/24 09:55 Phosphorus 3.3 mg/dL (2.5-4.9) 07/08/24 09:55 BUN 17 mg/dL (7-18) 07/08/24 09:55 Creatinine 0.97 mg/dL (0.70-1.30) 07/08/24 09:55 Glucose 106 mg/dL (74-106) 07/08/24 09:55 TSH 1.73 uIU/mL (0.358-3.74) 07/22/23 14:46 COAG PT 14.2 SECONDS (11.7-14.9) 12/23/20 05:40 Pre-Assessment Diagnosis/Proposed Procedure Planned Operative Procedure(s): EGD WITH PEG TUBE PLACEMENT, PORT A CATH PLACEMENT Anesthesia History Anesthesia History - pleat patternmaker: Anesthesia History - pleat patternmaker Hx Hospitalization No 07/13/24 15:01 Any Problems With Anesthesia No 07/13/24 15:01 Cholinesterase deficiency No 07/13/24 15:01 You/Your Family Experience No 07/13/24 15:01 fever (hyperthermia) with Relationship Recent Exposure to Contagious No 07/15/24 06:08 Disease Does patient have nerve No 07/13/24 15:01 stimulator Patient instructed to have device shut off --Does patient have Pacemaker No 07/15/24 06:08 or ICD? When Was Last Pacemaker Check QUESTION #4 FULL TEXT: You/Your Family Experience fever (hyperthermia) with Anesthesia Last Oral Intake Last Oral intake: Last Oral Intake NPO since 20:30 07/15/24 06:08 Meds taken in AM with sips of water? Meds patient instructed to take am of surgery PONV PONV - pleat patternmaker: PONV - pleat patternmaker Female No 07/13/24 15:01 HX of Motion Sickness No 07/13/24 15:01 HX of N/V After Surgery No 07/13/24 15:01 Non-Smoker Yes 07/13/24 15:01 Duration of Surgery greater Yes 07/13/24 15:01 than 60 minutes Number of Risk Factors 2 07/13/24 15:01 PONV Score Moderate Risk 07/13/24 15:01 Height & Weight Height & Weight: Anesthesia: Height & Weight Height 5 ft 8 in 07/15/24 06:08 Weight: 102 kg 07/15/24 06:08 Body Mass Index (BMI) 34.2 07/15/24 06:08 Respiratory Assessment Respiratory Assessment - pleat patternmaker: Respiratory Tract Infection Hx - pleat patternmaker Hx Respiratory Tract Infection No 07/13/24 15:01 STOP Sleep Apnea STOP Sleep Apnea - pleat patternmaker: STOP Sleep Apnea - pleat patternmaker Hx Hypertension Yes: CONTROLLED WITH MEDS 07/13/24 15:01 Hx Sleep Apnea No 07/13/24 15:01 CPAP BIPAP Do you snore loudly (louder No 07/13/24 15:01 than talking or can be heard Do you often feel tired/ No 07/13/24 15:01 fatigued/ sleepy during daytime? Has anyone observed you stop No 07/13/24 15:01 breathing during sleep? STOP Results Negative 07/13/24 15:01 QUESTION #5 FULL TEXT : Do you snore loudly (louder than talking or can be heard through closed doors)? 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 Specify any problems Hx of Preganancy in last 3 N/A 07/13/24 15:01 Months Nurse Filling Out Transfusion [email or web address] 07/13/24 15:01 & Questions: Date: 07/13/24 07/13/24 15:01 Time: 15:05 07/13/24 15:01 Patient unable to answer at this time (ie. confused, unrespo /Reproduction History /Reproductive History - pleat patternmaker: /Reproductive Hx- pleat patternmaker Hx Now Gestational Age (in weeks): EDC: Hx Hx Para Hx Section SAB Active Medications Active Medications: Current Medications Generic Name Dose Route Start Last Admin Trade Name Freq PRN Reason Stop Dose Admin Cefazolin Sodium 2 gm/ Sodium 110 mls @ 150 mls/hr 07/15/24 07:30 Chloride IV 07/15/24 08:13 PREOP ONE Lactated Ringer's 1,000 mls @ 15 mls/hr 07/15/24 06:00 07/15/24 06:23 IV 15 mls/hr .Q48H ALAN Administration PFSH Medical History Wears dentures Cancer History of stress test Encounter for education Hearing loss Home Medications ?Medication ?Instructions ?Recorded ?Last Taken ?Type atorvastatin 80 mg tablet 80 mg PO QHS cholesterol 12/22/20 07/14/24 History buspirone 10 mg tablet 10 mg PO BID mental health 12/22/20 07/15/24 History cholecalciferol (vitamin D3) 25 1,000 unit PO DAILY vitamin 12/22/20 07/14/24 History mcg (1,000 unit) tablet metoprolol tartrate 25 mg tablet 12.5 mg PO BID blood pressure 12/22/20 07/15/24 History irbesartan 75 mg tablet 75 mg PO QDAY 07/01/24 07/14/24 History lidocaine-prilocaine 2.5 %-2.5 % 1 applic topical ONCE PRN Port 07/12/24 Unknown Rx topical cream access 30 days #30 grams ondansetron 4 mg disintegrating 4 mg PO Q8H PRN nausea and 07/12/24 Unknown Rx tablet vomiting #30 tabs prochlorperazine maleate 10 mg 10 mg PO Q6H PRN nausea and 07/12/24 Unknown Rx tablet vomiting #30 tabs Allergy/AdvReac Type Severity Reaction Status Date / Time No Known Allergies Allergy Verified 07/15/24 06:06 Family History Sister Cancer Mother Cancer Father Diabetes Heart disease Surgical History H/O skin graft Hx of tracheostomy History of laryngoscopy S/P partial glossectomy Social History Smoking Status: Former smoker Tobacco: How many years used: 8 how long ago did patient quit smokin years ago alcohol intake: never substance use type: does not use Review of Systems (Anesthesia) ROS Narrative System reviewed and no additional complaints, except as documented.
--- NOTE | 2024-07-15 07:36 | HP.PCM_ITS ---
HPI - General General Date of Admission: 07/15/24 Date of Service: 07/15/24 Chief Complaint: peg/ port placement HPI Narrative QUIRINO CORDERO, is a 74 M who presents [facility] Medical History Wears dentures Cancer History of stress test Encounter for education Hearing loss Home Medications ?Medication ?Instructions ?Recorded ?Last Taken ?Type atorvastatin 80 mg tablet 80 mg PO QHS cholesterol 12/22/20 07/14/24 History buspirone 10 mg tablet 10 mg PO BID mental health 12/22/20 07/15/24 History cholecalciferol (vitamin D3) 25 1,000 unit PO DAILY vitamin 12/22/20 07/14/24 History mcg (1,000 unit) tablet metoprolol tartrate 25 mg tablet 12.5 mg PO BID blood pressure 12/22/20 07/15/24 History irbesartan 75 mg tablet 75 mg PO QDAY 07/01/24 07/14/24 History lidocaine-prilocaine 2.5 %-2.5 % 1 applic topical ONCE PRN Port 07/12/24 Unknown Rx topical cream access 30 days #30 grams ondansetron 4 mg disintegrating 4 mg PO Q8H PRN nausea and 07/12/24 Unknown Rx tablet vomiting #30 tabs prochlorperazine maleate 10 mg 10 mg PO Q6H PRN nausea and 07/12/24 Unknown Rx tablet vomiting #30 tabs Allergy/AdvReac Type Severity Reaction Status Date / Time No Known Allergies Allergy Verified 07/15/24 06:06 Family History Sister Cancer Mother Cancer Father Diabetes Heart disease Surgical History H/O skin graft Hx of tracheostomy History of laryngoscopy S/P partial glossectomy Social History Smoking Status: Former smoker Tobacco: How many years used: 8 how long ago did patient quit smokin years ago alcohol intake: never substance use type: does not use Vital Signs Vital Signs Vital Signs: 07/15/24 06:08 07/15/24 06:08 10/03/24 06:52 Temperature 97.1 F L 97.1 F L Temperature Source Temporal Pulse Rate 57 L 57 L Respiratory Rate 18 18 Respiratory Pattern Normal Blood Pressure 145/71 H 145/71 H Blood Pressure Mean 95 Blood Pressure Source Monitor Blood Pressure Position Semi-Fowlers Blood Pressure Location Right Arm Pulse Ox 97 97 Oxygen Delivery Method Room Air Weight Weight: 224 lb 13.944 oz Body Mass Index (BMI) 34.2 Physical Exam Const alert, oriented x3 and no apparent distress HEENT normocephalic Eyes PERRL Neck full ROM Assessment & Plan Assessment/Plan (1) 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
[2024-07-15] MEDS: Cefazolin 2 GM in 0.9% Normal Saline (100mL Bag) 100 ML IV (07:45)
[2024-07-15] MEDS: Bupivacaine 0.5% PF 10 ML VIAL (08:22)
[2024-07-15] MEDS: Lidocaine 1% /Epi 1:100 (20ml) 20 ML Vial (08:24)
--- NOTE | 2024-07-15 08:59 | DCINST_ITS ---
Discharge Instructions Diet Discharge Diet: Light diet - advance as tolerated Activity Discharge Activity: Return to Normal Activity and May Shower Dressing / Incision Call your doctor if your incision/area has: Continuous Slow Oozing, Sudden Increased Bleeding, Increased Pain/ Swelling, Increased Redness, Foul Smelling Discharge and Swelling at the incision site Call your doctor if you observe: Fever of 101 or Higher and Change in Color Remove Dressing in: 3 days Cleanse incision/area with: Soap & Water Follow Up Care Test Results: Test results from this visit will be discussed in further detail at your follow- up appointment, if applicable. Discharge Plan Admission Attending Provider: Ash Conde Primary Care Provider: Hebert Brown Instructions Print Language: Algerian Discharge Orders/Prescriptions Prescriptions: New oxycodone-acetaminophen [Percocet] 5-325 mg tablet 1 tab PO Q8H PRN (Reason: pain) 3 Days Qty: 7 0RF Continued irbesartan 75 mg tablet 75 mg PO QDAY prochlorperazine maleate 10 mg tablet 10 mg PO Q6H PRN (Reason: nausea and vomiting) Qty: 30 2RF lidocaine-prilocaine 2.5-2.5 % cream 1 applic topical ONCE PRN (Reason: Port access) 30 Days Qty: 30 2RF ondansetron 4 mg tablet,disintegrating 4 mg PO Q8H PRN (Reason: nausea and vomiting) Qty: 30 1RF atorvastatin 80 MG tablet 80 mg PO QHS buspirone 10 MG tablet 10 mg PO BID metoprolol tartrate 25 MG tablet 12.5 mg PO BID cholecalciferol (vitamin D3) 1,000 UNIT tablet 1,000 unit PO DAILY Patient Comments: TAKE 1 TABLET BY MOUTH EVERY DAY Referrals / Follow Up: Hebert Brown MD [Primary Care Provider] - Disposition Disposition (needs filled in before D/C Order can be placed): Home, Self Care
--- NOTE | 2024-07-15 09:04 | OP.PCM_ITS ---
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 Left subclavian Mediport placement with C arm 2. EGD with PEG placement Surgeon: Ash Conde Type of Anesthesia: MAC Drains: None Estimated Blood Loss (mL): 10 mL Description of Procedure: The patient is a 74-year-old male who was recently seen to the office with metastatic head neck cancer. His treatment team is recommending radiation and chemotherapy. For this they have requested Mediport placement. They are also recommending PEG tube placement as they are concerned about possible difficulty swallowing and are concerned about nutrition intake. He was recently seen to the office to discuss these procedures. We discussed the details of the planned procedure including risks benefits and alternatives. He wishes to proceed. The patient was brought to the operating room today following informed consent. Preoperative antibiotics were given. A timeout was performed. He was placed supine on the operative table with arms comfortably tucked at his side. An axillary roll was placed vertically between his shoulders to improve positioning. The Mediport was placed first. The left side of the neck and chest were prepped and draped in the usual manner. Once a timeout was performed, local anesthetic was then infiltrated into the left periclavicular area. Next using the supplied needle and syringe, I was able to gain access to the left subclavian vein. This required several passes until this was adequately encountered. The blood return was a dark red nonpulsatile venous appearing blood return. The guidewire was then advanced through the aperture and the needle. This was advanced without difficulty. The wire was then secured to the drapes using a curved hemostat. C-arm was then brought into confirm appropriate positioning of the wire on the venous side of the circulation. Next a marking pen was then used to indicate the location for the incision to be made for the port pocket in the subcutaneous tissue. Additional local anesthetic was infiltrated into this vicinity. A #15 blade was then used to make about a 3 cm incision. Bovie electrocautery was then used dissect down through subtenons tissue down to the level of the pectoralis fascia. Once at this level a subcutaneous pocket was created. Another small incision was made at the entry point of the guidewire. This measured less than a centimeter. Next the tubing was attached to the tunneler and the tubing was tunneled into the larger incision and up and out through the smaller incision. The tubing was then measured and trimmed to about 24 cm. This was then attached to the port hub. The port was then affixed to the underlying chest wall using Prolene suture. Once tied down this sat nicely in the subcutaneous pocket. Next, the dilator and tear-away sheath were then threaded over the guidewire and advanced. This was performed without difficulty. The guidewire and dilator were then removed thus leaving the sheath in place. The free end of the tubing was then threaded down the sheath. The sheath was then extracted while advancing the tubing. The port functioning was then checked by drawing and flushing with injectable saline. This marline and flushed very easily. C arm was then brought i nto evaluate positioning of the tip of the tubing as well as the catheter itself. All of this appeared satisfactory. The port was then flushed with heparin. Hemostasis was excellent. The wound was then closed using 3-0 Vicryl in the subdermal layer. 5-0 Vicryl was then used to close the skin. Skin glue was applied as dressing. I then applied a 2 x 2 gauze once the glue was dry along with a large OpSite. The drapes were then taken down and preparations were made to perform the PEG/EGD. The abdomen was then prepped and draped in the usual manner. EGD scope was advanced through the mouth and down into the esophagus without difficulty. This was advanced to the level of the duodenum. The duodenum appeared grossly normal. The scope was then withdrawn back into the stomach. This was maximally insufflated. The light was shown on the anterior aspect of the stomach and we could easily see transillumination in the central aspect of the upper abdomen. This area was then prepped and draped in the usual manner. Local anesthetic was infiltrated. A #11 blade was then used to make a 1 cm incision. The needle and sheath were then inserted through this incision and this came out on the inside of the stomach. This was observed via the EGD scope. I then exchanged the needle for a guidewire. Next a snare was inserted into the EGD scope to grab the guidewire. Once this was grasped and secured the scope along with the guidewire were then removed from the mouth. The guidewire was then attached to the PEG tube. The tube was then thoroughly lubed and was then pulled into the m outh and up and out through the abdominal wall. This was secured at about 3-1/2 cm. A bumper, clamp and three-way connector was then attached. Dressings were then applied. EGD scope was reinserted in order to visualize the bumper on the inside of the stomach. This seems to be in good positioning. The patient was then awakened anesthesia and taken to recovery. He tolerated this well. Complications None Procedures Vascular Studies CF Procedures [id number]: Other Procedure See Report (20987 port placement) Multi Select Codes Respiratory/Cardiovascular Resp/Cardiovascular CPT Codes: 20188 Insert tunneled cv cath (Port placement) Digestive Digestive CPT Codes: [address] gastrostomy tube
--- NOTE | 2024-07-15 09:15 | RAD_ITS ---
INDICATION: port placement EXAMINATION/TECHNIQUE: X-RAY - XR Chest 1 View COMPARISON: December 22, 2020 FINDINGS: LINES/DEVICES: There is a new left-sided central venous catheter in place terminating within the expected region of the superior vena cava. LUNGS: No new consolidation, edema or effusion. No pneumothorax. MEDIASTINUM AND CARDIOVASCULAR STRUCTURES: Cardiac silhouette not enlarged. Central airways and mediastinal contour are unremarkable. BONES AND SOFT TISSUES: There are surgical clips projecting over the left thoracic inlet. RAD/CXR for Line Placement IMPRESSION: New central venous catheter terminating within the expected region of the superior vena cava. No acute cardiopulmonary process. Electronically Signed: Paulette Parish MD at 9:28 EDT ,
--- NOTE | 2024-07-15 09:45 | PCM.POST.ANE ---
Anesthesia: Postop Eval I Current Vital Signs Temperature: 97 F Pulse Rate: 97 Blood Pressure: 111/68 Respiratory Rate: 16 Pulse Ox: 95 Oxygen Delivery Method: Room Air Assessment Airway patent: Yes Spontaneous unlabored respirations: Yes Mental status: Awake and Calm nausea: No Vomiting: No Anesthesia Complication: No Fluid Hydration Crystalloid volume administer (ml): 900 Total IV fluid infused: 900 Progress Note Anesthesia document: Postop Eval 1 completed: Yes
--- NOTE | 2024-07-15 09:46 | POSTOPAN2_ITS ---
Anesthesia Postop Eval I Sum Postop Eval Completion status Anesthesia document: Postop Eval 1 completed: Yes Anesthesia Postop Eval I Summary Anesthesia Postop Eval I Summary: Anesthesia Postop Eval I: Assessment Summary Airway patent Yes 07/15/24 09:46 [email or web address] Spontaneous unlabored Yes 07/15/24 09:46 [email or web address] respirations Mental status Awake,Calm 07/15/24 09:46 [email or web address] nausea No 07/15/24 09:46 PRESS [email or web address] Vomiting No 07/15/24 09:46 [email or web address] Anesthesia Postop Eval I: Fluid Summary Crystalloid volume administer 900 07/15/24 09:46 [email or web address] (ml) Colloids volume administered ( ml) Blood Product volume administered (ml) Total IV fluid infused 900 07/15/24 09:46 [email or web address] Anesthesia Postop Eval I: Summary Notes Anesthesia Complication No 07/15/24 09:46 [email or web address] Anesthesia Complication Comment: Post-operative progress note Anesthesia: Postop Eval II Evaluation Mental status: Awake and Calm Pain Level: 0 nausea: No Vomiting: No Complications Anesthesia Complication: No
--- NOTE | 2024-07-15 09:46 | PCM.POSTANE2 ---
Anesthesia Postop Eval I Sum Postop Eval Completion status Anesthesia document: Postop Eval 1 completed: Yes Anesthesia Postop Eval I Summary Anesthesia Postop Eval I Summary: Anesthesia Postop Eval I: Assessment Summary Airway patent Yes 07/15/24 09:46 [email or web address] Spontaneous unlabored Yes 07/15/24 09:46 [email or web address] respirations Mental status Awake,Calm 07/15/24 09:46 [email or web address] nausea No 07/15/24 09:46 [email or web address] Vomiting No 07/15/24 09:46 [email or web address] Anesthesia Postop Eval I: Fluid Summary Crystalloid volume administer 900 07/15/24 09:46 [email or web address] (ml) Colloids volume administered ( ml) Blood Product volume administered (ml) Total IV fluid infused 900 07/15/24 09:46 [email or web address] Anesthesia Postop Eval I: Summary Notes Anesthesia Complication No 07/15/24 09:46 [email or web address] Anesthesia Complication Comment: Post-operative progress note Anesthesia: Postop Eval II Evaluation Mental status: Awake and Calm Pain Level: 0 nausea: No Vomiting: No Complications Anesthesia Complication: No
== END 2024-07-15 10:28 | disposition home or self-care (01) ==
LOC: SDC 05:44 → AC 05:45
PROVIDERS: PCP Family Medicine; Referring Provider Surgery; Visit Provider Surgery
PROC: (CPT 36561; principal; 2024-07-15 07:15)
PROC: 0DJ08ZZ Inspection of Upper Intestinal Tract, Via Natural or Artificial Opening Endoscopic (ICD-10-PCS; CPT 43235; principal; 2024-07-15 07:25)
DX: Z45.2 Encounter for adjustment and management of vascular access device (principal); C77.0 Secondary and unspecified malignant neoplasm of lymph nodes of head, face and neck; C80.1 Malignant (primary) neoplasm, unspecified; Z46.59 Encounter for fitting and adjustment of other gastrointestinal appliance and device; Z87.891 Personal history of nicotine dependence; Z79.899 Other long term (current) drug therapy; I10 Essential (primary) hypertension
CPT/HCPCS: 36561; 43246; 00532; 71045; 77001; J7120; C1788

== ENCOUNTER 2024-08-17 08:15 | Outpatient (CLI) | payer MEDICARE, OTHER, SELFPAY ==
[2024-08-17 09:23] LABS: Cholesterol 146 mg/dL (200); High Density Lipoprotein 35 mg/dL; Triglycerides 79 mg/dL; Very Low Density Lipoprotein 16 mg/dL (5-40)
== END 2024-08-17 23:59 | disposition home or self-care (01) ==
LOC: MEDOUTP 08:16
PROVIDERS: PCP Family Medicine; Referring Provider Family Medicine; Visit Provider Family Medicine
DX: I10 Essential (primary) hypertension (principal)
CPT/HCPCS: 36591; 80061; 97803

== ENCOUNTER 2024-11-15 10:30 | Outpatient (RCR) | payer MEDICARE, OTHER, SELFPAY ==
--- NOTE | 2024-07-08 11:40 | ST.MBS ---
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 Pt is planned for PEG and port placement. Pt is planned for chemoradiation treatment beginning 07/19/2024. Dysphagia Hx: BSE completed at [facility] [place]. He was diagnosed w/ mild oral dysphagia and recommended for pureed liquids and minced & moist solids. Per patient, he had a dysphagia therapy session yesterday where he learned oropharyngeal exercises. He reports consuming regular textures / thin liquids at home. ART PREPARATOR inspected oral cavity as the patient reported having lakshmi removed from his tongue yesterday. No redness/irritation. Tongue had mildly decreased ROM w/ lateral movement R and mild-moderately decreased ROM w/ lateral movement L. He would like to transfer his dysphagia care to this ART PREPARATOR during and following his chemoradiation treatment. He wishes to address speech production at a later time. Current Diet Ordered: Regular textures / Thin liquids Dentition: Edentulous (has dentures, not present) Mental Status: WNL Respiratory Status: Oxygenating on Room Air Penetration-Aspiration Scale Penetration-Aspiration Scale: OBJECTIVE ASSESSMENT OF SWALLOW FUNCTION (QUANTITATIVE ? PER TRIAL): PENETRATION / ASPIRATION SCALE (HANCOCK): 1 = does not enter airway 2 = enters airway/above vocal folds/ejected 3 = enters airway/above vocal folds/not ejected 4 = enters airway/contacts vocal folds/ejected 5 = enters airway/contacts vocal folds/not ejected 6 = enters airway/below vocal folds/ejected 7 = enters airway/below vocal folds/not ejected despite effort 8 = enters airway/below vocal folds/no effort VIDEOFLOROSCOPIC SCALE SCORE (HANCOCK): Grade I = aspiration of material that has penetrated into the laryngeal vestibule, intact cough reflex Grade II = aspiration < 10 % of the bolus, intact cough reflex Grade III = aspiration of < 10 % of the bolus, reduced cough reflex or aspiration of > 10 % of the bolus, intact cough reflex Grade IV = aspiration of > 10 % of the bolus, reduced cough reflex Penetration-Aspiration Scale Score Thin Liquid via teaspoon: Result: 2= enter airway/above vocal folds/ejected Thin Liquid via teaspoon Trial 2: Result: 2= enter airway/above vocal folds/ejected Thin Liquid via sequential sips: cup: Result: 5= enters airways/contacts vocal folds/not ejected [place] Thick Liquid via small single sip: cup: Result: 1= does not enter airway Pudding via teaspoon: Result: 1= does not enter airway Comment: Esophageal screen - Mild retention in distal esophagus w/ min retrograde flow. Thin Liquid via single sip: straw: Result: 8= enters airway/below vocal folds/no effort Comment: Esophageal screen - Complete clearance after initial retention in distal esophagus w/ retrograde flow. Thin Liquid via small single sip: cup: Result: 8= enters airway/below vocal folds/no effort Thin Liquid via small single sip: cup Effortful swallow: Result: 2= enter airway/above vocal folds/ejected 1/2 Cookie: Result: 1= does not enter airway Thin Liquid via sequential sips:straw Effortful swallow: Result: 5= enters airways/contacts vocal folds/not ejected (trace) [place] Thick Liquid via small single sip: cup Trial 2: Result: 2= enter airway/above vocal folds/ejected Oral Phase Labial Seal: Interlabial escape, no progression to anterior lip Tongue Control During Bolus Hold: Posterior escape of greater than half of bolus Bolus Preparation/Mastication: Slow prolonged chewing/mashing with complete recollection (Small pieces unchewed) Bolus Transport/Lingual Motion: Delayed initiation of tongue motion Oral Residue: Residue collection on oral structures Pharyngeal Phase Initiation of Pharyngeal Swallow: Bolus head at posterior laryngeal surgace of epiglottis Soft Palate Elevation: Trace column of contrast/air between soft palate and pharyngeal wall Laryngeal Elevation: Partial superior movement thyroid cart/partial apprx aryt-epig petiole Anterior Hyoid Excursion: Partial anterior movement Epiglottic Movement: Complete inversion Laryngeal Vestibule Closure at Height of Swallow: Incomplete; narrow column of air/contrast in laryngeal vestibule Pharyngeal Stripping Wave: Present - complete Pharyngoesophageal Segment Opening: Parital distension and partial duration; parital obstruction of flow Tongue Base Retraction: Narrow column of contrast between tongue base & post. pharyngeal wall Pharyngeal Residue: Trace residue within or on pharyngeal structures Esophageal Phase Esophageal Clearance: Esophageal retention w/ retrograde flow through pharyngoesophageal seg Diagnosis/Impression Diagnosis: Mild-moderate oropharyngeal dysphagia R13.12 Impression: The oral phase is primarily marked by... -Decreased bolus control s/p partial glossectomy w/ flap reconstruction w/ premature posterior loss of liquid to the posterior surface of the epiglottis prior to swallow onset. -Delayed tongue motion for A-P transport. -Small pieces of cookie appeared un-chewed; however, pt reported leaving his dentures at home. -Mild oral residue, which mostly cleared with independent use of second swallow. The pharyngeal phase is primarily marked by... -Delayed swallow onset. -Decreased airway closure during the swallow due to decreased laryngeal elevation and anterior hyoid excursion. -SILENT aspiration of thin liquids via cup and straw. Effortful swallow and decreased rate of intake were most effective in decreasing risk for aspiration. The esophageal phase is primarily marked by... -Min retention of pudding and liquids in the upper esophagus with retrograde flow through the UES to the pyriforms. -Mild retention of pudding in the lower esophagus, which cleared w/ liquid wash. Recommendations Diet: Regular Textures (Easy to Chew textures - IDDSI Level 7) and Thin Liquids Comment: FREQUENT ORAL CARE Compensatory Strategies: Small Bites, Small Sips (SIPS ONE AT A TIME, HARD/EFFORTFUL SWALLOW EACH SIP, INTERMITTENT COUGH AND RE-SWALLOW), Slow Rate, Sitting upright and Remain sitting upright for 30 minutes after PO intake Recommend Repeat Modified Barium Swallow: Yes Comment: Repeat MBSS 3 months after completion of chemoradiation to monitor swallow function as the patient is at risk for worsening dysphagia and aspiration risk s/p radiation treatment. Need for Skilled Speech Therapy Services: Yes Comment: Recommend continued OP ST during and following chemoradiation treatment for ongoing assessment of diet tolerance and aspiration risk, education re: potential short- and long-term impacts of chemoradiation that negatively impact swallow function, training in oropharyngeal exercise program (lingual resistance/coordination, Ingrid, Effortful breath hold and swallow, Yawn stretch), and training in recommended strategies to encourage safe po intake. Education Completed: 1. Described result of evaluation., 2. Pt understands evaluation & agrees with goals and treatment plan., 4. Family/caregivers understand evaluation & agree w/ goals & tx plan., 7. Pt requires further education on strategies & risks. and 8. Family/caregivers require further education on strategies & risks. Status Active ST Patient: Active Contact Information [facility] Speech Therapy:: Duyen Moore M.A. CCC-ART PREPARATOR? Speech-Language Pathologist?? [facility] [address] [place] [address]? [email or web address]?? [phone]
--- NOTE | 2024-07-12 15:48 | HP.SP.EV_ITS ---
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 Pt is planned for PEG and port placement. Pt is planned for chemoradiation treatment beginning 07/19/2024. Dysphagia Hx: BSE completed at [facility]. He was diagnosed w/ mild oral dysphagia and recommended for pureed liquids and minced & moist solids. Per patient, he had a dysphagia therapy session yesterday where he learned oropharyngeal exercises. He reports consuming regular textures / thin liquids at home. He would like to transfer his dysphagia care to this FAST FOOD MANAGER during and following his chemoradiation treatment. Of note, he wishes to address speech production at a later time. MBSS 07/05/2023 revealed mild-moderate oropharyngeal dysphagia, SILENT aspiration of thin liquids. He was recommended the following: ?Diet: Regular Textures (Easy to Chew textures - IDDSI Level 7) and Thin Liquids; Comment: FREQUENT ORAL CARE; Compensatory Strategies: Small Bites, Small Sips (SIPS ONE AT A TIME, HARD/EFFORTFUL SWALLOW EACH SIP, INTERMITTENT COUGH AND RE-SWALLOW), Slow Rate, Sitting upright and Remain sitting upright for 30 minutes after PO intake; Recommend Repeat Modified Barium Swallow: Yes; Comment: ; Repeat MBSS 3 months after completion of chemoradiation to monitor swallow function as the patient is at risk for worsening dysphagia and aspiration risk s/p radiation treatment.; Need for Skilled Speech Therapy Services: Yes; Comment: Recommend continued OP ST during and following chemoradiation treatment for ongoing assessment of diet tolerance and aspiration risk, education re: potential short- and long-term impacts of chemoradiation that negatively impact swallow function, training in oropharyngeal exercise program (lingual resistance/coordination, Ingrid, Effortful breath hold and swallow, Yawn stretch), and training in recommended strategies to encourage safe po intake.? Smoking Status: Former smoker Pain Is pain an issue with your current prescribed condition?: No Personal Preferred language: Sammarinese Patient Allergies Allergies Allergies: Allergies No Known Allergies Allergy (Verified 07/12/24 15:35) Subjective Dysphagia Symptoms Reported Symptoms/Problems with: Hx of Aspiration Current Diet Solids Current Diet: Soft Current Diet Liquids Current Liquids: Thin Objective Dysphagia Administered by Administered by: Self Thin Liquids Administred via: Cup Comments: FAST FOOD MANAGER cued him for use of single sips, hard swallows. He consumed sips one at a time with no overt s/s of aspiration; however, patient is a known silent aspirator w/ thin liquids if not utilizing compensatory strategies. Pureed Comments: He consumed bites w/ quick rate, no overt s/s of aspiration. Regular Comments: Timely mastication of cookie, delayed cough following 1 bite. Swallowing Impairment Contributing Factors to Swallowing Impairment: Impaired Oral-Pharyngeal Transport, Delayed Swallow Initiation and Reduced Laryngeal Excursion Impact Impact on Safety & Functioning: Risk for Aspiration and Risk for Inadequate Nutrition/Hydration Comments: Pt is getting PEG placed prior to treatment Diet Texture Recommendations Solids: Easy to Chew (Level 7) Liquids: Thin (Level 0) Other: FREQUENT ORAL CARE; Small Bites, Small Sips (SIPS ONE AT A TIME, HARD/EFFORTFUL SWALLOW EACH SIP, INTERMITTENT COUGH AND RE-SWALLOW), Slow Rate, Sitting upright and Remain sitting upright for 30 minutes after PO intake Results Swallowing Within Normal Limits: Yes Swallowing Diagnosis: Oropharyngeal Phase Dysphagia (R13.12) Severity: Moderate Objective Oral Motor Jaw Opening Measurement: 41mm lip to lip SPEEDER TENDER V Trigeminal Nerve V Trigeminal Nerve Response: Impaired Comment:: Decreased palpation of R masseter w/ jaw clench VII Facial Nerve VII Facial Nerve Result: Impaired Comment: Diminished taste X Vagus Nerve X Vagus Nerve Result: Intact XII Hypoglossal Nerve XII Hypoglossal Nerve Result: Impaired Comment:: Mildly decreased protrusion, mild-moderately decreased L lateralization, mildly decreased R lateralization s/p L hemiglossectomy w/ flap reconstruction Swallowing Performance Scale Swallowing Performance Scale Swallowing Performance Scale Result: 5 Moderate Reference: Neuro-QoL instrument Radiation Oncology Patient FOIS Functional Oral Intake Scale Total oral diet with multiple consistencies, but requiring special preparation or compensations: Level 5 Plan Recommendations Treatment Warranted: Yes Treatment Warranted: Dysphagia Comment: Repeat MBSS 3 months after completion of chemoradiation Progress Prognosis: Good Frequency Frequency: 1x/Week Additional (Frequency): Frequency to change during POC based on patient's needs during and following treatment Duration: 12 Months Patient/Family Goal Patient/Family Goal: Will recommend the patient for outpatient dysphagia therapy to address oropharyngeal dysphagia due to SCC of oral tongue s/p L hemiglossectomy, flap reconstruction and L neck dissection. He is planned for chemoradiation, which will increase risk for worsening dysphagia and worsening aspiration risk. Speech therapy POC to include further education re: prophylactic oropharyngeal exercise program, diet texture recommendations, oral care regimen, and compensatory strategies to decrease risk for aspiration. Additionally, will provide ongoing assessment of diet tolerance during and post chemoradiation treatment. Without skilled ST services, the patient is at increased risk for aspiration, weight loss, and malnutrition. Goals that are Established Determination:: Goals will be added/modified as deemed necessary and appropriate. Therapy will be discontinued when results of re-evaluation indicate therapy is no longer needed or lack of progress has been documented. Goal #1-5 Goal #1: The patient will consume least restrictive diet textures without overt s/s of aspiration with minimal verbal cues to decrease risk for aspiration. Goal #2: The patient will complete an oropharyngeal exercise program X10-15 reps, 3-5X daily with minimal verbal cues to improve strength, ROM, and coordination of swallowing mechanism. (Teetee, Lingual Resistance, Effortful breath hold and swallow, CTAR, Jaw Stretch) Goal #3: The patient will participate in ongoing education re: short-term and long-term effects of chemoradiation treatment on swallow function and management of symptoms that contribute to dysphagia. Goal #4: The patient will participate in routine MBSS/FEES to objectively assess swallow function and provide recommendations for safest, least restrictive diet and compensatory strategies to reduce risk for aspiration during and following chemoradiation treatment. Education Patient has Indicated that the Following The Patient has indicated that they have no educational or learning abilities that may effect their care.: Yes Patient Instruction Patient Education: Treatment Plan, Goals, Safety Precautions and Home Exercise Program Other Education: Educated the patient re: short-term and long-term effects of chemoradiation treatment that increase his risk for worsening dysphagia, such as mucositis, odynophagia, xerostomia, hypo/dysgeusia, disuse atrophy, and radiation fibrosis. Discussed consuming as much oral intake as he safely can and completing oropharyngeal exercises as much as able during treatment. Discussed how impaired swallowing increases risk for aspiration, aspiration related illnesses, weight loss, and malnutrition. Discussed importance for speech therapy to monitor and address dysphagia during and post chemoradiation treatment to maintain optimal swallow function through continued education and prophylactic exercise program. Provided the patient a handout and demonstration of prophylactic oropharyngeal exercise program, as well as jaw ROM exercise (Teetee, Lingual Resistance, Effortful breath hold and swallow, CTAR, Jaw Stretch). The patient provided return demonstration with all exercises with minimal verbal cues and demonstration with the exception of Ingrid, which he was unable to complete despite max cues and models. The patient would benefit from continued training to monitor proper execution of exercises and encourage strict adherence to exercise program. Person Taught: Patient and Family Teaching Method: Discussion, Demonstration, Handout and Teach Back Response to teaching: Return Demonstration, Verbalize Understanding and R einforcement Needed
--- NOTE | 2025-01-26 09:10 | HP.SP.DC ---
ST Discharge Summary Discharged: Discharge: The patient attended OP ST for management of oropharyngeal dysphagia from 07/08/2024 to 12/10/2024. MBSS 12/10/2024 revealed mild-moderate oropharyngeal dysphagia and recommended Diet: Easy to Chew Textures and Thin Liquids; Comment: FREQUENT ORAL CARE; Compensatory Strategies: Small Bites, Small Sips (SIPS ONE AT A TIME, HARD/EFFORTFUL SWALLOW EACH SIP, INTERMITTENT COUGH AND RE-SWALLOW), Slow Rate, Alternate bites/solids and sips/liquids, Sitting upright and Remain sitting upright for 30 minutes after PO intake; Recommend Repeat Modified Barium Swallow: Yes; Comment: 6 months for ongoing assessment of swallow function and aspiration risk s/p chemoradiation for SCC of oral cavity w/ metastases to lymph nodes of head and neck. Need for Skilled Speech Therapy Services: No; Comment: FAMILY INDEPENDENCE CASE MANAGER provided lingual ROM, lingual resistance, effortful swallow, and jaw stretch handout to the patient recommending he complete each exercise X10 reps, 3-5X/day. Pt verbalized understanding and did not feel he required additional instruction at this time. Pt also verbalized good understanding of recommended compensatory strategies to decrease risk for aspiration, as well as importance for thorough oral care following re-education by FAMILY INDEPENDENCE CASE MANAGER after MBSS. Pt feels he is already aware of these compensations and does not require additional training. If need for re-instruction in strategies or exercise program, please call to re-schedule w/ OP ST. Will discharge current dysphagia POC. Please re-consult if concern for worsening dysphagia prior to follow-up MBSS.
== END 2024-11-15 19:00 | disposition home or self-care (01) ==
LOC: SP 10:30
PROVIDERS: PCP Family Medicine; Referring Provider Student in an Organized Health Care Education/Training Program; Visit Provider Student in an Organized Health Care Education/Training Program
DX: 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, unspecified (principal)
CPT/HCPCS: 92526; 92610; 92611; 97803

== ENCOUNTER 2024-12-10 13:00 | Outpatient (CLI) | payer MEDICARE, OTHER, SELFPAY ==
--- NOTE | 2024-12-10 13:34 | ST.MBS ---
Modified Barium Swallow Patient Information Study Date: 12/10/24 Study Time: 12:30 Direct Billable Minutes: 120 Total Minutes procedure & reportin Diagnosis: Squamous cell carcinoma of oral cavity (C06.9) Referring Physician: Cain Connor Reason for Referral: Objectively assess swallow function, assess risk for aspiration, and determine recommendations for least restrictive diet textures and compensatory strategies to improve safety of swallow. 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 From 07/19/2024 ? 09/01/2024 he received adjuvant chemoradiation. Dysphagia Hx: The patient followed w/ ST intermittently before, during, and after chemoradiation treatment to manage oropharyngeal dysphagia. MBSS 07/08/2025 revealed mild-moderate oropharyngeal dysphagia, silent aspiration of thin liquids, and recommended the following diet and strategies: Easy to Chew textures (IDDSI Level 7) and Thin Liquids; FREQUENT ORAL CARE; Compensatory Strategies: Small Bites, Small Sips (SIPS ONE AT A TIME, HARD/EFFORTFUL SWALLOW EACH SIP, INTERMITTENT COUGH AND RE-SWALLOW), Slow Rate, Sitting upright and Remain sitting upright for 30 minutes after PO intake. Per pt, no changes to oral intake or symptoms since recent ST visit. 11/15/[address] visit: Weight: 206lbs, 2oz. Pt has not followed w/ pointing machine operator, but reports purposefully trying to maintain weight ~200lbs for health reasons. CHOCOLATE DIPPER made pointing machine operator aware of intentional weight loss, improving swallow function. Oral intake: 3, 16oz gomez, ice tea, and coffee daily. Pt is eating Easy to Chew textures, including tender meats, soups, chilis, pastas. Pt has occ difficulty getting thicker foods down his throat, but liquid wash fully clears. He denies any choking or coughing w/ oral intake. PEG intake: Only flushing. Taste: He can taste some sour, salt, and sweet. Moderate dysgeusia. Moderate-severe hypogeusia. Odynophagia: N/A. Xerostomia: Mild-moderate, managed by biotene spray. Worse at nighttime. Current Diet Ordered: Easy to Chew textures / Thin liquids Dentition: Upper Dentures Mental Status: WNL Respiratory Status: Oxygenating on Room Air Penetration-Aspiration Scale Penetration-Aspiration Scale: OBJECTIVE ASSESSMENT OF SWALLOW FUNCTION (QUANTITATIVE ? PER TRIAL): PENETRATION / ASPIRATION SCALE (HANCOCK): 1 = does not enter airway 2 = enters airway/above vocal folds/ejected 3 = enters airway/above vocal folds/not ejected 4 = enters airway/contacts vocal folds/ejected 5 = enters airway/contacts vocal folds/not ejected 6 = enters airway/below vocal folds/ejected 7 = enters airway/below vocal folds/not ejected despite effort 8 = enters airway/below vocal folds/no effort VIDEOFLOROSCOPIC SCALE SCORE (HANCOCK): Grade I = aspiration of material that has penetrated into the laryngeal vestibule, intact cough reflex Grade II = aspiration < 10 % of the bolus, intact cough reflex Grade III = aspiration of < 10 % of the bolus, reduced cough reflex or aspiration of > 10 % of the bolus, intact cough reflex Grade IV = aspiration of > 10 % of the bolus, reduced cough reflex Penetration-Aspiration Scale Score Thin Liquid via teaspoon: Result: 2= enter airway/above vocal folds/ejected Thin Liquid via teaspoon Trial 2: Result: 2= enter airway/above vocal folds/ejected Thin Liquid via large single sip: cup: Result: 4= enters airway/contacts vocal folds/ejected [place] Thick Liquid via large single sip: cup: Result: 1= does not enter airway Pudding via teaspoon: Result: 1= does not enter airway Thin Liquid via single sip: straw: Result: 8= enters airway/below vocal folds/no effort 1/2 Cookie: Result: 1= does not enter airway Comment: Trace silent post prandial aspiration of previous trial. Thin Liquid via large single sip: cup Trial 2: Result: 5= enters airways/contacts vocal folds/not ejected Comment: Cued cough after the swallow = Effective in clearing residues from vocal folds and laryngeal vestibule. Thin Liquid via small single sip: cup Effortful swallow: Result: 2= enter airway/above vocal folds/ejected Thin Liquid via small single sip: cup Effortful swallow Trial 2: Result: 2= enter airway/above vocal folds/ejected Oral Phase Labial Seal: No Labial Escape Tongue Control During Bolus Hold: Posterior escape of less than half of bolus Bolus Preparation/Mastication: Disorganized chewing/mashing with solid pieces of bolus unchewed Bolus Transport/Lingual Motion: Delayed initiation of tongue motion Oral Residue: Residue collection on oral structures Pharyngeal Phase Initiation of Pharyngeal Swallow: Bolus head in valleculae Soft Palate Elevation: Trace column of contrast/air between soft palate and pharyngeal wall Laryngeal Elevation: Partial superior movement thyroid cart/partial apprx aryt-epig petiole Anterior Hyoid Excursion: Partial anterior movement Epiglottic Movement: Complete inversion Laryngeal Vestibule Closure at Height of Swallow: Incomplete; narrow column of air/contrast in laryngeal vestibule Pharyngeal Stripping Wave: Present - complete Pharyngoesophageal Segment Opening: Parital distension and partial duration; parital obstruction of flow Tongue Base Retraction: Narrow column of contrast between tongue base & post. pharyngeal wall Pharyngeal Residue: Collection of residue within or on pharyngeal structures Esophageal Phase Esophageal Clearance: Esophageal retention w/ retrograde flow below pharyngoesophageal seg. Treatment Strategies Effects of treatment strategies attemped:: Cued cough after the swallow = Effective in clearing residues from vocal folds and laryngeal vestibule. Diagnosis/Impression Diagnosis: Mild-moderate oropharyngeal dysphagia R13.12 Impression: The oral phase is primarily marked by... -Decreased bolus control w/ premature posterior loss of <1/2 of liquid boluses to the vallecula prior to swallow onset. Improved bolus control from previous MBSS. -Delayed tongue motion for A-P transport. -Small pieces of regular textured cookie appeared un-chewed despite use of dentures. Recommend continue Easy to Chew textures. -Mild oral residue, which mostly cleared with independent use of second swallow as needed. The pharyngeal phase is primarily marked by... -Timely swallow onset. -Decreased airway closure during the swallow due to decreased laryngeal elevation and anterior hyoid excursion. -Trace SILENT aspiration of large sip of thin liquids via straw after the swallow. Deep laryngeal penetration of large sip of thin liquids by cup. Effortful swallow and decreased bolus size (small sip) were most effective in decreasing risk for aspiration. The esophageal phase is primarily marked by... -Min retention of pudding and liquids in the UES with retrograde flow to the pyriforms, no change from previous study. -Mild retention of pudding and thin liquids in the lower esophagus. Recommendations Diet: Easy to Chew Textures and Thin Liquids Comment: FREQUENT ORAL CARE Compensatory Strategies: Small Bites, Small Sips (SIPS ONE AT A TIME, HARD/EFFORTFUL SWALLOW EACH SIP, INTERMITTENT COUGH AND RE-SWALLOW), Slow Rate, Alternate bites/solids and sips/liquids, Sitting upright and Remain sitting upright for 30 minutes after PO intake Recommend Repeat Modified Barium Swallow: Yes Comment: 6 months for ongoing assessment of swallow function and aspiration risk s/p chemoradiation for SCC of oral cavity w/ metastases to lymph nodes of head and neck. Need for Skilled Speech Therapy Services: No Comment: CHOCOLATE DIPPER provided lingual ROM, lingual resistance, effortful swallow, and jaw stretch handout to the patient recommending he complete each exercise X10 reps, 3-5X/day. Pt verbalized understanding and did not feel he required additional instruction at this time. Pt also verbalized good understanding of recommended compensatory strategies to decrease risk for aspiration, as well as importance for thorough oral care following re-education by CHOCOLATE DIPPER after MBSS. Pt feels he is already aware of these compensations and does not require additional training. If need for re-instruction in strategies or exercise program, please call to re-schedule w/ OP ST. Will discharge current dysphagia POC. Recommended Referrals: GI Consult (Retention in UES w/ retrograde flow to the pyriform sinuses w/ liquids and pudding. Retention of pudding and thin liquids in the lower esophagus.) Education Completed: 1. Described result of evaluation., 2. Pt understands evaluation & agrees with goals and treatment plan. and 4. Family/caregivers understand evaluation & agree w/ goals & tx plan. Status Active ST Patient: Active Contact Information [facility] Speech Therapy:: Duyen Moore M.A. [facility]-CHOCOLATE DIPPER? Speech-Language Pathologist?? [facility] [address] [place] [address]? [email or web address]?? [phone]
== END 2024-12-10 23:59 | disposition home or self-care (01) ==
LOC: RAD 01-17 13:22
PROVIDERS: PCP Family Medicine; Referring Provider Student in an Organized Health Care Education/Training Program; Visit Provider Student in an Organized Health Care Education/Training Program
DX: 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, unspecified (principal)
CPT/HCPCS: 92611

== ENCOUNTER → 2024-12-10 | Outpatient (CLI) | payer MEDICARE, OTHER, SELFPAY ==
--- NOTE | 2024-12-10 08:01 | CT_ITS ---
PROCEDURE: CHEST WITH CONTRAST REASON FOR EXAM: History of tongue carcinoma and partial resection. TECHNIQUE: Chest CT with intravenous contrast. CONTRAST: 100 cc of Isovue-300. COMPARISON: Comparison is made with prior study dated May 19, 2024. FINDINGS: Hardware: A left-sided port a catheter is seen with the tip in the superior vena cava. Lymph nodes: Calcified right hilar lymph nodes. Heart and Vasculature: Normal heart size. No pericardial effusion. Atherosclerotic calcifications of the thoracic aorta. Pulmonary arteries are unremarkable. Coronary artery calcification. Lungs and Airways: Moderate emphysematous changes are present. Stable calcified granuloma in the superior segment of the right lower lobe. Pleura: No pleural effusion. No pneumothorax. Upper Abdomen: Visualized portions of the upper abdominal viscera are unremarkable. Bones: Degenerative changes of the thoracic spine. CT/Chest WITH Contrast IMPRESSION: Stable examination. Emphysematous changes and scarring. One or more dose reduction techniques were used (e.g., Automated exposure contr ol, adjustment of the mA and/or kV according to patient size, use of iterative reconstruction technique). Reading Location: [id number]
--- NOTE | 2024-12-10 08:22 | CT_ITS ---
PROCEDURE: SOFT TISSUE NECK WITH CONTRAST REASON FOR EXAM: History of cancer of the tongue with partial resection of the tongue.. Prior lymph node resection. TECHNIQUE: CT of the soft tissues of the neck from the orbits to the upper mediastinum with intravenous contrast. CONTRAST: 100 cc of Isovue-300 injected intravenously. COMPARISON: None. FINDINGS: A left-sided port a catheter is seen with the tip in the superior vena cava. Salivary glands: Unremarkable. Lymph nodes: No cervical lymphadenopathy. Surgical clips are seen along the left side of the tongue in keeping with partial resection of the tongue. Thyroid: Unremarkable. Vasculature: Mild calcified plaque of the carotid arteries. Orbits: Unremarkable at visualized levels. Paranasal sinuses and mastoids: Grossly clear at visualized levels. Lung apices: Increased markings in the lung apices suggestive of scarring. Upper mediastinum: Visualized mediastinum is unremarkable. Bones: Multilevel degenerative changes of the spine. CT/Soft Tissue Neck WITH Contrast IMPRESSION: Status post partial resection of the tongue on the left side as described. Scarring at the lung apices. One or more dose reduction techniques were used (e.g., Automated exposure contr ol, adjustment of the mA and/or kV according to patient size, use of iterative reconstruction technique). Reading Location: [facility]
[2024-12-10] MEDS: 0.9% Saline Lock 10 ML Syringe IV (08:33)
== END | disposition home or self-care (01) ==
LOC: CT 08:00
PROVIDERS: PCP Family Medicine; Referring Provider Student in an Organized Health Care Education/Training Program; Visit Provider Student in an Organized Health Care Education/Training Program
DX: 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, unspecified (principal); R13.10 Dysphagia, unspecified
CPT/HCPCS: 70491; 71260; 74230; Q9967

== ENCOUNTER → 2025-06-03 | Outpatient (CLI) | payer MEDICARE, OTHER, SELFPAY ==
--- NOTE | 2025-06-03 13:46 | ST.MBS ---
Modified Barium Swallow Patient Information Study Date: 06/03/25 Study Time: 13:00 Direct Billable Minutes: 82 Total Minutes procedure & reportin Diagnosis: SCC of oral cavity C06.9 Referring Physician: Cain Connor Reason for Referral: MBSS recommended s/p chemoradiation treatment for SCC of oral cavity as the patient is at risk for worsening dysphagia due to fci effects of radiation treatment.?FINISHING DEPARTMENT SUPERVISOR will objectively assess swallow function, assess risk for aspiration, and determine recommendations for least restrictive diet textures and compensatory strategies to improve safety of swallow. 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 From 07/19/2024 ? 09/01/2024 he received adjuvant chemoradiation. Dysphagia Hx: The patient followed w/ ST intermittently before, during, and after chemoradiation treatment to manage oropharyngeal dysphagia. Two prior MBSS completed (07/08/2025, 12/10/2024). MBSS 12/10/2024 revealed mild-moderate oropharyngeal dysphagia, silent aspiration of thin liquids via straw, and recommended the following diet and strategies: Easy to Chew textures (IDDSI Level 7) and Thin Liquids; FREQUENT ORAL CARE; Compensatory Strategies: Small Bites, Small Sips (SIPS ONE AT A TIME, HARD/EFFORTFUL SWALLOW EACH SIP, INTERMITTENT COUGH AND RE-SWALLOW), Slow Rate, Sitting upright and Remain sitting upright for 30 minutes after PO intake. Patient denies swallowing difficulty other than some difficulty chewing (edentulous status) and sensation of pharyngeal retention of foods if he hasn't chewed enough. He reports use of intermittent cough and re-swallow when sensing he needs to clear something from his throat. Pt reports moderate xerostomia managed by Biotene spray. Moderate hypogeusia. No odynophagia or dysgeusia. Current Diet Ordered: Regular textures / Thin liquids Dentition: Edentulous Mental Status: WNL Respiratory Status: Oxygenating on Room Air Penetration-Aspiration Scale Penetration-Aspiration Scale: OBJECTIVE ASSESSMENT OF SWALLOW FUNCTION (QUANTITATIVE ? PER TRIAL): PENETRATION / ASPIRATION SCALE (HANCOCK): 1 = does not enter airway 2 = enters airway/above vocal folds/ejected 3 = enters airway/above vocal folds/not ejected 4 = enters airway/contacts vocal folds/ejected 5 = enters airway/contacts vocal folds/not ejected 6 = enters airway/below vocal folds/ejected 7 = enters airway/below vocal folds/not ejected despite effort 8 = enters airway/below vocal folds/no effort VIDEOFLOROSCOPIC SCALE SCORE (HANCOCK): Grade I = aspiration of material that has penetrated into the laryngeal vestibule, intact cough reflex Grade II = aspiration < 10 % of the bolus, intact cough reflex Grade III = aspiration of < 10 % of the bolus, reduced cough reflex or aspiration of > 10 % of the bolus, intact cough reflex Grade IV = aspiration of > 10 % of the bolus, reduced cough reflex Penetration-Aspiration Scale Score Thin Liquid via teaspoon: Result: 2= enter airway/above vocal folds/ejected Thin Liquid via teaspoon Trial 2: Result: 2= enter airway/above vocal folds/ejected Thin Liquid via large single sip: cup: Result: 5= enters airways/contacts vocal folds/not ejected [place] Thick Liquid via large single sip: cup: Result: 2= enter airway/above vocal folds/ejected Pudding via teaspoon: Result: 1= does not enter airway Comment: Esophageal screen - Complete clearance. 1/2 Cookie: Result: 1= does not enter airway Thin Liquid via sequential sips:straw: Result: 5= enters airways/contacts vocal folds/not ejected Thin Liquid via single sip: straw Effortful swallow: Result: 2= enter airway/above vocal folds/ejected Oral Phase Labial Seal: Interlabial escape, no progression to anterior lip Tongue Control During Bolus Hold: Escape to lateral buccal cavity/floor of mouth Bolus Preparation/Mastication: Slow prolonged chewing/mashing with complete recollection Bolus Transport/Lingual Motion: Delayed initiation of tongue motion Oral Residue: Residue collection on oral structures Pharyngeal Phase Initiation of Pharyngeal Swallow: Bolus head in valleculae Soft Palate Elevation: Trace column of contrast/air between soft palate and pharyngeal wall Laryngeal Elevation: Partial superior movement thyroid cart/partial apprx aryt-epig petiole Anterior Hyoid Excursion: Partial anterior movement Epiglottic Movement: Complete inversion Laryngeal Vestibule Closure at Height of Swallow: Incomplete; narrow column of air/contrast in laryngeal vestibule Pharyngeal Stripping Wave: Present - complete Pharyngoesophageal Segment Opening: Parital distension and partial duration; parital obstruction of flow (retention of barium in the UES w/ retrograde flow to the pyriform sinuses) Tongue Base Retraction: Narrow column of contrast between tongue base & post. pharyngeal wall Pharyngeal Residue: Collection of residue within or on pharyngeal structures Esophageal Phase Esophageal Clearance: Complete clearance Diagnosis/Impression Diagnosis: Mild-moderate oropharyngeal dysphagia R13.12 MBS Impressions: The oral phase is primarily marked by... -Decreased bolus control w/ loss to FOM. Improved bolus control from previous MBSS. -Delayed tongue motion for A-P transport. -Slowed, but complete mastication of cookie, which improved from previous MBSS. Piecemeal deglutition of cookie, which cleared in independent use of a second swallow. The pharyngeal phase is primarily marked by... -Timely swallow onset. -Decreased airway closure during the swallow due to decreased laryngeal elevation and anterior hyoid excursion. -Mildly decreased TB retraction and pharyngeal stripping wave w/ mild pharyngeal residue of cookie, which fully cleared w/ independent use of a second swallow. -Deep laryngeal penetration of large sip of thin liquids by cup and sequential sips of thin liquids via straw, which did not fully eject. Trace residues remained in the laryngeal vestibule and on vocal folds. Effortful swallow and decreased bolus size/rate were most effective in decreasing risk for aspiration. The patient did not aspirate this MBSS as compared to silent aspiration of thin liquids on two prior MBSS. The esophageal phase is primarily marked by... -Minimal retention of pudding and liquids in the UES due to presence of small cricopharyngeal bar with retrograde flow to the pyriform sinuses, no change from previous studies. Recommendations Diet: Regular Textures and Thin Liquids Compensatory Strategies: Small Bites, Small Sips (Effortful swallows, 1 sip at a time, intermittent throat clear and re-swallow), Slow Rate, Multiple Swallows (Pt independently utilizes double swallows as needed) and Sitting upright Recommend Repeat Modified Barium Swallow: Yes Comment: Repeat MBS study in 6-12 months to monitor swallow function as the patient is at risk for worsening dysphagia and aspiration risk s/p chemoradiation treatment for hx of HNC. Need for Skilled Speech Therapy Services: No Comment: No dysphagia therapy warranted at this time. Will recommend continued completion of home oropharyngeal exercise program to maintain optimal swallow function. Pt does not feel he needs re-instruction in home exercise program at this time. Pt feels he is well-aware of compensatory strategies required to decrease his risk for aspiration. FINISHING DEPARTMENT SUPERVISOR educated the patient in his increased risk for worsening dysphagia s/p chemoradiation treatment due to potential fci effects of radiation, such as radiation fibrosis. He verbalized understanding. FINISHING DEPARTMENT SUPERVISOR requested the patient call to request swallowing treatment if concerns for worsening dysphagia or increased s/s of aspiration prior to next MBSS planned for 6-12 months from this study. Education Completed: 1. Described result of evaluation. Status Active ST Patient: Active Contact Information [facility] Speech Therapy:: Duyen Moore M.A. [facility]-FINISHING DEPARTMENT SUPERVISOR Speech-Language Pathologist [facility] [address] [place] [address] [email or web address] [phone]
== END | disposition home or self-care (01) ==
PROVIDERS: PCP Family Medicine; Referring Provider Student in an Organized Health Care Education/Training Program; Visit Provider Student in an Organized Health Care Education/Training Program
DX: 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, unspecified (principal); C77.0 Secondary and unspecified malignant neoplasm of lymph nodes of head, face and neck
CPT/HCPCS: 74230; 92611

== ENCOUNTER 2025-06-12 10:29 | Emergency (ER) | payer MEDICARE, OTHER, SELFPAY ==
[2025-06-12 10:29] VITALS: BP 138/70; PULSE 61; RESP 17; TEMP 36.6; O2SAT 98; BMI 30.5
--- NOTE | 2025-06-12 10:47 | EKG12_ITS ---
Test Reason : NEURO S/SX Blood Pressure : */* mmHG Vent. Rate : 52 BPM Atrial Rate : 52 BPM P-R Int : 168 ms QRS Dur : 116 ms QT Int : 446 ms P-R-T Axes : 42 53 36 degrees QTcB Int : 414 ms Sinus bradycardia with marked sinus arrhythmia Right bundle branch block Abnormal ECG Confirmed by Yifan Polo ([id number]), marketing editor VIOLET MITCHELL ([id number]) on 06/14/2025 10:35:16 AM Referred By: Confirmed By: Yifan Polo
--- NOTE | 2025-06-12 10:49 | EX.ED.DYSGE1 ---
HPI History of Present Illness Chief Complaint: Neuro S/Sx Informant: patient and spouse/S.O. Onset/Context/Timing Onset: Yesterday Current Severity: Mild Maximum Severity: Mild Narrative Narrative: 75-year-old male history of tongue cancer had a partial resection of his tongue a year ago at [facility]. Patient has been doing well yesterday yesterday who had a memory lapse. stated they had made spaghetti sauce over 2 days spanned and he did not know where the spaghetti sauce had come from. She said recently he was unsure of a camper that they have owned and then his jacket he did not know where it came from or who was it was. They deny any trouble with his mom's walking or any changes of his speech. He has never had a stroke or mini stroke. There is no known history of metastasis of his tongue cancer. Prior similar symptoms: No Recent Illness/Hospitalization: No PFSH PFSH Medical History Dysphagia Encounter for chemotherapy management Wears dentures Cancer History of stress test Encounter for education Hearing loss Home Medications ?Medication ?Instructions ?Recorded ?Last Taken ?Type atorvastatin 80 mg tablet 80 mg PO QHS cholesterol 12/22/20 07/14/24 History buspirone 10 mg tablet 10 mg PO BID mental health 12/22/20 07/15/24 History cholecalciferol (vitamin D3) 25 1,000 unit PO DAILY vitamin 12/22/20 07/14/24 History mcg (1,000 unit) tablet metoprolol tartrate 25 mg tablet 12.5 mg PO BID blood pressure 12/22/20 07/15/24 History irbesartan 75 mg tablet 75 mg PO QDAY 07/01/24 07/14/24 History latanoprost 0.005 % eye drops 1 drp ophthalmic (eye) DAILY 08/17/24 Unknown History glaucoma Allergy/AdvReac Type Severity Reaction Status Date / Time No Known Allergies Allergy Verified 05/30/25 10:07 Family History Sister Cancer Mother Cancer Father Diabetes Heart disease Surgical History H/O skin graft Hx of tracheostomy History of laryngoscopy S/P partial glossectomy Social History Smoking Status: Former smoker Tobacco: How many years used: 8 how long ago did patient quit smokin years ago alcohol intake: never substance use type: does not use ROS ROS ED ROS Narrative He has not been sick lately Constitutional Constitutional ED: Denies chills or fever(s) Eyes Eyes: Denies blurry vision ENT ENT ED: Denies ear pain Cardiovascular Cardiovascular: Denies chest pain Respiratory/Chest Respiratory/Chest: Denies cough or dyspnea Gastrointestinal Gastrointestinal: Denies abdominal pain Genitourinary Genitourinary ED: Denies dysuria or hematuria Musculoskeletal Musculoskeletal: Denies arthralgias Integumentary Denies abscess Neurologic Neurologic: Denies headache(s) Psychiatric Psychiatric: Denies anxiety or depression Endocrine Endocrinology: Denies cold intolerance Hematologic/Lymphatic Hematologic/Lymphatic: Reports none Allergic/Immunologic Allergic/Immunologic ED: Denies mouth swelling, tongue swelling or urticaria EXAM Physical Exam Narrative Exam Narrative: 75-year-old male sitting upright in bed vital signs stable afebrile. No acute distress. at bedside. H EENT exam pupils round react light. No trauma. The left anterior aspect of his tongue has been resected. Speech is normal for his baseline. Neck nontender. Lungs clear to auscultation. Heart regular rhythm no murmur. Rate about 60. Chest wall ribs nontender. Abdomen soft nontender. Back nontender. Moving all 4 extremities. Calves are nontender without edema or cords. Neurologically is awake alert. Answering questions following commands. He has normal strength of both upper and lower extremities. Fingertip to nose within normal limits. No drift of either upper or lower extremities. He knows month, year and president. His NIH currently is 0. Const Vital Signs: 06/12/25 10:29 06/12/25 11:29 06/12/25 12:00 Temperature 97.8 F Temperature Source Temporal Pulse Rate 61 62 54 L Respiratory Rate 17 16 14 Blood Pressure 138/70 H 124/84 H 147/86 H Blood Pressure Mean 92 97 106 Pulse Ox 98 100 100 Oxygen Delivery Method Room Air Room Air Positive well nourished and well developed; Negative for cachectic, contractures or unkempt General Appearance ED: well developed and NAD; Negative for unkempt, cachectic, contractures, cyanotic, diaphoretic or pallor Nutritional Appearance: Negative for cachectic HEENT Reports moist mucous membranes Eyes PERRL and EOMs intact bilaterally Neck no lymphadenopathy, supple and no JVD Chest Wall inspection of chest normal and palpation of chest normal Resp normal respiratory effort and clear to auscultation bilaterally Cardio regular rate, regular rhythm, S1 normal heart sound, S2 normal heart sound and no murmurs GI normal to inspection, nondistended, normoactive bowel sounds, non-tender, non-distended and no masses Auscultation: normoactive bowel sounds Palpation: soft; Negative for tender, guarding or rebound tenderness present Back/Spine no CVA tenderness General Back: Negative for CVA tenderness Cervical Spine: Negative for cervical spine tenderness Thoracic Spine / Upper Back: Negative for thoracic spinal tenderness or paraspinal muscle tenderness Lumbar Spine / Lower Back: Negative for lumbar spinal tenderness Extremity normal to inspection General Extremety ED: Negative for edema or tenderness General Extremity: Negative for edema Neuro oriented x3 and CN's II-XII intact bilaterally Sensorium / Orientation: alert Motor Exam: strength 5/5 throughout Psych mental status grossly normal Appearance: Negative for unkempt Skin no rashes or lesions noted, no wounds and skin turgor normal General Skin Exam: Negative for jaundice or pallor Lesions: No lesion noted Rashes: No rashes noted Trauma: Negative for abrasion Wounds: Negative for wounds noted MDM MDM MDM Narrative Medical decision making narrative: 75-year-old male with memory lapse recently. He is got a benign exam. CAT scan of his head and CT of his head neck for screening labs are being obtained. Concern would be for stroke, metastases of his recently resected tongue cancer from a year ago versus other etiologies. Repeat exam at 12:39 PM. Patient doing well. Unchanged I discussed all his test results with both he and his . She is comfortable with outpatient follow-up with her primary care physician Dr. Hebert Brown.. His exam is unchanged. I spoke to multiple family members in the room prior to discharge. History & Record Review Discussion w/independent historian: Patient Additional record(s) reviewed:: Prior inpatient record, Prior outpatient record, Prior ED visit and Prior labs Lab Data Attestation: I reviewed the patient's lab results. Lab results narrative: CBC shows normal white count. 4.9. H&H of 14 and 43. Platelets 143. UA normal. No nitrates. No white or red cells. No bacteria. Chemistries show sodium 138. Gap 10. BUN and creatinine of 21. Glucose 96. Liver enzymes normal. CTA head and neck and CT brain chronic changes no acute process. No mass. No bleed. No stroke. Labs: Laboratory Results - last 24 hr 06/12/25 06/12/25 10:50 11:19 WBC 4.9 RBC 4.82 Hgb 14.7 Hct 43.8 MCV 90.9 MCH 30.5 MCHC 33.6 RDW Std Deviation 46.6 H RDW Coeff of Ericka 14.0 Plt Count 143 L MPV 10.0 Immature Gran % (Auto) 0.200 Neut % (Auto) 68.4 Lymph % (Auto) 22.1 [place] % (Auto) 7.5 Eos % (Auto) 1.4 Baso % (Auto) 0.4 Absolute Neuts (auto) 3.4 Absolute Lymphs (auto) 1.09 Nucleated RBC % 0 Sodium 138 Potassium 4.2 Chloride 103 Carbon Dioxide 24.5 Anion Gap 10 BUN 20 H Creatinine 1.08 Estim Creat Clear Calc 61.76 Est GFR (MDRD) Non-Af 71 BUN/Creatinine Ratio 18.8 Glucose 96 Calcium 9.5 Total Bilirubin 1.17 AST 26 ALT 16 Alkaline Phosphatase 73 Total Protein 7.1 Albumin 4.2 Globulin 2.9 Albumin/Globulin Ratio 1.5 Urine Color Yellow Urine Clarity Clear Urine pH 6.0 Ur Specific [place] 1.010 Urine Protein 15 H Urine Glucose (UA) Normal Urine Ketones Negative Urine Occult Blood Negative Urine Nitrite Negative Urine Bilirubin Negative Urine Urobilinogen Normal Ur Leukocyte Esterase Negative Urine RBC 0 SEEN Urine WBC 0-5 SEEN Ur Squamous Epith Cells 0 SEEN Urine Bacteria 0 SEEN Urine Mucus 0 SEEN Radiography Diagnostic Testing: Clinical Impression(s) from Imaging Studies Brain CT 06/12/25 11:42 IMPRESSION: There is no acute intracranial process. Reading Location: [id number] Head/Neck CTA 06/12/25 11:42 IMPRESSION: 1. No significant stenosis in carotid arteries utilizing NASCET criteria 2. Grossly unremarkable CTA head and neck. 3. Postsurgical changes consistent with left hemiglossectomy, left modified neck dissection. Reading Location: [facility] Rhythm Strip Rhythm Strip: Sinus bradycardia Rate: 52 Ectopy: None EKG Initial EKG: Attestation: I personally reviewed and interpreted this EKG as follows: Interpretation: Sinus Rhythm and No Acute Injury Pattern Comments: Sinus bradycardia rate of 52 right bundle branch block. No acute abnormality. Discharge Plan Triage Chief Complaint: Neuro S/Sx ED Provider: Tenzin Lama Dx/Rx/DC Orders Clinical Impression: Memory loss, Hx of tongue cancer Prescriptions: No Action irbesartan 75 mg tablet 75 mg PO QDAY atorvastatin 80 MG tablet 80 mg PO QHS buspirone 10 MG tablet 10 mg PO BID metoprolol tartrate 25 MG tablet 12.5 mg PO BID cholecalciferol (vitamin D3) 1,000 UNIT tablet 1,000 unit PO DAILY Patient Comments: TAKE 1 TABLET BY MOUTH EVERY DAY latanoprost 0.005 % drops 1 drp ophthalmic (eye) DAILY Patient Comments: INSTILL 1 DROP INTO EACH EYE AT BEDTIME Primary Care Provider: Hebert Brown Referrals: Hebert Brown MD [Primary Care Provider] - As soon as possible Activity Restrictions/Additional Instructions: Your tests and CAT scans were unremarkable today. Call and follow-up with your primary care physician Dr. Hebert Brown call Friday to be set up for an appointment to be seen for further evaluation. Print Language: Thai Disposition Disposition: Home, Self Care
[2025-06-12 10:56] LABS: Mucous, Urine 0 SEEN /hpf (<or=2+); Red Blood Cells-Urine 0 SEEN /hpf (0-5); Squamous Epithelial Cells - UA 0 SEEN /hpf (0-5)
[2025-06-12 10:57] LABS: Color, Urine Yellow (Yellow); Glucose, Dipstick Normal (Normal); Ketone-Dipstick Negative (Negative); Leukocyte Esterase-Dipstick Negative /ul (Negative); Nitrite-Dipstick Negative (Negative); Occult Blood-Urine Negative /ul (Negative); Protein-Dipstick 15 mg/dl (Negative); Specific Gravity, Urine 1.010 (1.002-1.030); Urine Bilirubin Dipstick Negative (Negative)
--- OUTSIDE RECORDS SUMMARY | 2025-06-12 11:04 | XMS RPT_ITS | CCD ---
Author Organization [facility] Care Team Providers Care [employer] Name Role Phone Unavailable Primary Care Provider Unavailjeff Mi MD, Giorgio Unavailable Duyen Enciso RD Unavailable [phone] Dionisio CCC-OFFICE SYSTEM ANALYST, Bossman Garza Unavailable Unaramo Villarreal MD, Clayton Stock Unavailable Gina DUDLEYN-ELECTRODE TURNER AND FINISHER, Arlette Unavailable Javier CCC-OFFICE SYSTEM ANALYST, Omayra Unavailable Unavailable Dr. Salvador Brown MD Primary Care Provider Dr. Salvador Brown MD Referring Provider Ketty CERT PHARMACY TECH-C, Ema Attending Provider Dr. Cain Connor DO Attending Provider Dr. Cain Connor DO Referring Provider Dr. Harley Maurice MD Attending Provider Dr. Harley Maurice MD Other Provider Dr. Ash Conde MD Attending Provider Dr. Salvador Brown MD Primary Care Provider Dr. Salvador Brown MD Referring Provider Dr. Cain Connor DO Attending Provider Dr. Cain Connor DO Referring Provider Dr. Harley Maurice MD Attending Provider Dr. Salvador Brown MD Primary Care Provider Dr. Cain Connor DO Attending Provider Dr. Salvador Brown MD Referring Provider Dr. Harley Maurice MD Other Provider Dionisio [facility]-OFFICE SYSTEM ANALYST, Bossman Garza Unavailable Unava ilable CLAYTON VILLARREAL Attending Unavailable PROVIDER, UNKNOWN Admitting Unavailable PROVIDER, UNKNOWN Admitting Unavailable CLAYTON VILLARREAL Attending Unavailable SALVADOR BROWN Referring Unavailable TRICIA, GIORGIO Attending Unavailable TRICIA, GIORGIO Admitting Unavailable REQUEST, IP PHYSICAL THERAPY SERVICE Consulting Unavailable REQUEST, IP OCCUPATIONAL THERAPY SERVICE Consult ing Unavailable CONSULT, IP SURGERY UROLOGY Consulting Unav ailable PROVIDER, UNKNOWN Admitting Unavailable PROVIDER, UNKNOWN Attending Unavailable TRICIA, GIORGIO Referring Unavailable TRICIA, GIORGIO Referring Unavailable PROVIDER, UNKNOWN Admitting Unavailable TRICIA, GIORGIO Attending Unavailable PROVIDER, UNKNOWN Admitting Unavailable BOSSMAN JERONIMO Attending Unavailable TRICIA, GIORGIO Referring Unavailable TRICIA, GIORGIO Attending Unavailable PROVIDER, UNKNOWN Admitting Unavailable CLAYTON VILLARREAL Attending Unavailable PROVIDER, UNKNOWN Admitting Unavailable SALVADOR BROWN Referring Unavailable ARLETTE FUENTES Attending Unavailable PROVIDER, UNKNOWN Admitting Unavailable SALVADOR BROWN Referring Unavailable PROVIDER, UNKNOWN Admitting Unavailable TRICIA, GIORGIO Referring Unavailable PROVIDER, UNKNOWN Attending Unavailable PROVIDER, UNKNOWN Admitting Unavailable PROVIDER, UNKNOWN Attending Unavailable TRICIA, GIORGIO Referring Unavailable PROVIDER, UNKNOWN Attending Unavailable CLAYTON VILLARREAL Referring Unavailable PROVIDER, UNKNOWN Admitting Unavailable PROVIDER, UNKNOWN Attending Unavailable TRICIA, GIORGIO Admitting Unavailable PROVIDER, UNKNOWN Attending Unavailable PROVIDER, UNKNOWN Admitting Unavailable TRICIA, GIORGIO Referring Unavailable TRICIA, GIORGIO Referring Unavailable BOSSMAN JERONIMO Attending Unavailable PROVIDER, UNKNOWN Admitting Unavailable BARTOLO CHILD Referring Unavailable TRICIA, GIORGIO Attending Unavailable PROVIDER, UNKNOWN Admitting Unavailable PROVIDER, UNKNOWN Attending Unavailable TRICIA, GIORGIO Referring Unavailable PROVIDER, UNKNOWN Admitting Unavailable PROVIDER, UNKNOWN Attending Unavailable TRICIA, GIORGIO Referring Unavailable PROVIDER, UNKNOWN Admitting Unavailable Dr. Salvador Brown MD Primary Care Provider Dr. Cain Connor DO Referring Provider Dr. Harley Maurice MD Attending Provider Dr. Harley Maurice MD Other Provider Brown MD, Dr. Salvador Referring Provider Dr. Cain Connor DO Attending Provider Kevin RUSH, Dr. Ambrosio Primary Care Provider Dr. Cain Connor DO Referring Provider Kaylene RUSH, Dr. Souza Attending Provider Kaylene RUSH, Dr. Souza Other Provider Cain Connor Attending Unavailable Brown, Salvador Primary Care Unavailable Nikolas, Cain Referring Unavailable Brown, Salvador Referring Unavailable Brown, Salvador Primary Care Unavailable Brown, Salvador Attending Unavailable Nikolas, Cain Referring Unavailable Harley Maurice Consulting Unavailable Harley Maurice Attending Unavailable Brown, Salvador Primary Care Unavailable Nikolas, Cain Referring Unavailable Nikolas, Cain Attending Unavailable Brown, Salvador Primary Care Unavailable Nikolas, Cain Attending Unavailable Brown, Salvador Primary Care Unavailable Nikolas, Cain Referring Unavailable Ash Conde Consulting Unavailable Ash Conde Attending Unavailable Ash Conde Referring Unavailable Brown, Salvador Primary Care Unavailable Nikolas, Cain Referring Unavailable Nikolas, Cain Attending Unavailable Brown, Salvador Primary Care Unavailable Ash Conde Attending Unavailable Ash Conde Referring Unavailable Brown, Salvador Primary Care Unavailable Nikolas, Cain Referring Unavailable Nikolas, Cain Attending Unavailable Brown, Salvador Primary Care Unavailable Nikolas, Cain Referring Unavailable Nikolas, Cain Attending Unavailable Brown, Salvador Primary Care Unavailable Brown, Salvador Referring Unavailable Brown, Salvador Primary Care Unavailable Harley Maurice Attending Unavailable Nikolas, Cain Attending Unavailable Brown, Salvador Primary Care Unavailable Nikolas, Cain Referring Unavailable Nikolas, Cain Attending Unavailable Brown, Salvador Primary Care Unavailable Nikolas, Cain Attending Unavailable Inkolas, Cain Referring Unavailable Brown, Salvador Primary Care Unavailable Brown, Salvador Referring Unavailable Harley Maurice Attending Unavailable Brown, Salvador Primary Care Unavailable Brown, Salvador Referring Unavailable Brown, Salvador Primary Care Unavailable Ketty CERT PHARMACY TECH, Ema Attending Unavailable Nikolas, Cain Referring Unavailable Nikolas, Cain Attending Unavailable Brown, Salvador Primary Care Unavailable Brown, Salvador Referring Unavailable Ketty CERT PHARMACY TECH, Ema Attending Unavailable Brown, Salvador Primary Care Unavailable Harley Maurice Attending Unavailable Brown, Salvador Referring Unavailable Brown, Salvador Primary Care Unavailable Cain Connor Referring Unavailable Cain Connor Attending Unavailable Brown, Salvador Primary Care Unavailable Brown, Salvador Referring Unavailable Brown, Salvador Primary Care Unavailable Randy Gentile Attending Unavailable Nikolas, Cain Referring Unavailable Cain Connor Attending Unavailable Brown, Salvador Primary Care Unavailable Nikolas, Cain Referring Unavailable Cain Connor Attending Unavailable Brown, Salvador Primary Care Unavailable Brown, Salvador Referring Unavailable Ketty CERT PHARMACY TECH, Ema Attending Unavailable Brown, Salvador Primary Care Unavailable Nikolas, Cain Referring Unavailable Cain Connor Attending Unavailable Brown, Salvador Primary Care Unavailable Brown, Salvador Referring Unavailable Brown, Salvador Primary Care Unavailable Harley Maurice Attending Unavailable Brown, Salvador Referring Unavailable Ketty CERT PHARMACY TECH, Ema Attending Unavailable Brown, Salvador Primary Care Unavailable Cain Connor Attending Unavailable Brown, Salvador Referring Unavailable Brown, Salvador Primary Care Unavailable Jenny Tran Attending Unavailable Brown, Salvador Primary Care Unavailable Brown, Salvador Referring Unavailable Harley Maurice Attending Unavailable Brown, Salvador Primary Care Unavailable Cain Connor Attending Unavailable Brown, Salvador Referring Unavailable Brown, Salvador Primary Care Unavailable Cain Connor Attending Unavailable Brown, Salvador Referring Unavailable Brown, Salvador Primary Care Unavailable Bronw, Salvador Referring Unavailable Ketty CERT PHARMACY TECH, Ema Attending Unavailable Brown, Salvador Primary Care Unavailable Ash Conde Attending Unavailable Brown, Salvador Referring Unavailable Brown, Salvador Primary Care Unavailable Cain Connor Attending Unavailable Brown, Salvador Referring Unavailable Brown, Salvador Primary Care Unavailable Ash Conde Attending Unavailable Brown, Salvador Referring Unavailable Brown, Salvador Primary Care Unavailable Harley Maurice Attending Unavailable Brown, Salvador Referring Unavailable Brown, Salvador Primary Care Unavailable Cain Connor Referring Unavailable Cain Connor Attending Unavailable Brown, Salvador Primary Care Unavailable Cain Connor Referring Unavailable Cain Connor Attending Unavailable Brown, Salvador Primary Care Unavailable Medications Current Medications Medication Drug Class(es) Dates Sig (Normalized) Sig (Original) atorvastatin 80 mg oral tablet (20 sources) HMG-CoA Reductase Inhibitor Start: 12-22-2020 End: 07-09-2024 take 1 tablet by mouth at bedtime Atorvastatin 80 MG tablet Active 80 mg PO AT BEDTIME December 22, 2020 1:00am cholesterol cholecalciferol 0.025 mg oral tablet (10 sources) Vitamin D Start: 12-22-2020 take 1 tablet by mouth once daily Cholecalciferol (Vitamin D3) 1,000 UNIT tablet Active 1000 U PO DAILY December 22, 2020 1:00am vitamin irbesartan 75 mg oral tablet (20 sources) Angiotensin 2 Receptor Imani Start: 03-26-2024 End: 07-09-2024 take 1 tablet by mouth once daily Irbesartan 75 mg tablet Active 75 mg PO daily July 01, 2024 12:00am latanoprost 0.05 mg/ml ophthalmic solution (20 sources) Prostaglandin Analog Start: 08-17-2024 Latanoprost 0.005 % drops Active 1 NMA OPHTHALMIC DAILY August 17, 2024 1:00am glaucoma Start: 06-11-2024 1 Drop, Both E yes, AT BEDTIME, First dose on Fri06/11/24 at 2200, Until Discontinued Start: 04-26-2024 End: 07-09-2024 take 1 drop(s) into the eye(s) at bedtime latanoprost (XALATAN) 0.005 % ophthalmic solution INSTILL 1 DROP INTO EACH EYE AT BEDTIME 04/26/2024 07/09/2024 Discontinued (Therapy completed) 1 ml naloxone hydrochloride 0.4 mg/ml injection (18 sources) Opioid Antagonist Start: 06-10-2024 Start: 05-27-2024 End: 07-09-2024 naloxone 4 mg/0.1 mL nasal l iquid Use 1 [place] in one nostril (alternate sides) as needed for Drug Overdose for up to 1 dose. Every 2-3 mins. until help arrives. 1 Each 1 05/27/2024 07/09/2024 Discontinued (Therapy completed) Completed/Discontinued Medications Medication Drug Class(es) Dates Sig (Normalized) Sig (Original) acetaminophen 32 mg/ml oral solution (16 sources) Start: 06-16-2024 End: 07-09-2024 take 31.2 mL by mouth every six hours as needed for pain acetaminophen (TYLENOL) 160 MG/5ML oral solution 31.2 mL by NG Tube route every 6 hours as needed for Fever or Pain. 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 ALPRAZolam 0.5 mg oral tablet (15 sources) Benzodiazepine Start: 05-07-2024 End: 06-26-2024 take 1 tablet by mouth at bedtime ALPRAZolam (XANAX) 0.5 MG tablet TAKE 1 TABLET BY MOUTH AT BEDTIME IF NEEDED TO SLEEP WHILE TAKING STEROID 05/07/2024 06/26/2024 Discontinued (Med List Cleanup) Ampicillin / Sulbactam (1 source) Penicillin-class Antibacterial, beta Lactamase Inhibitor Start: 06-10-2024 End: 06-13-2024 3,000 mg, Intravenous, EVERY 6 HOURS ANTIBIOTIC, 12 doses, First dose on Ema 06/10/24 at 1900, Last dose on Fri06/13/24 at 1000 aspirin 81 mg chewable tablet (20 sources) Platelet Aggregation Inhibitor, Nonsteroidal Anti-inflammatory Drug Start: 06-16-2024 End: 07-09-2024 aspirin 81 MG chewable tablet 1 Tablet by NG Tube route daily for 1 day. 1 Tablet 06/16/2024 07/09/2024 Discontinued (Therapy completed) Start: 06-11-2024 End: 06-18-2024 81 mg, NG Tube, DAILY, 7 dos es, First dose on Fri06/11/24 at 0900, Last dose on Ema 06/17/24 at 0900, Post-op aspirin 81 MG ta blet Take 81 mg by mouth. Suspended bacitracin 0.5 unt/mg topica l ointment (16 sources) Start: 06-16-2024 End: 07-09-2024 bacitracin 500 UNIT/GM OINT ointment Apply topically 3 times daily. Apply thin layer to incisions 28 g 1 06/16/2024 07/09/2024 Discontinued (Therapy completed) Start: 06-10-2024 End: 06-13-2024 Topical, 3 TIMES DAILY, 9 do ses, First dose on Fri06/10/24 at 2200, Last dose on 06/13/24 at 1400, Post-op busPIRone hydrochloride 10 m g oral tablet (20 sources) Start: 03-29-2024 End: 07-09-2024 busPIRone (BUSPAR) 10 MG tab let 03/29/2024 07/09/2024 Discontinued (Med List Cleanup) Start: 12-22-2020 [facility] Buspirone 10 MG tablet Active 10 mg PO TWICE A DAY December 22, 2020 1:00am [facility] calcium chloride 0.0014 meq/ ml / potassium chloride 0.004 meq/ml / sodium chloride 0.103 meq/ml / sodium lactate 0.028 meq/ml injectable solution (2 sources) Start: 06-10-2024 End: 06-10-2024 Intravenous, at 75 mL/hr, CONTINUOUS, Starting on Fri06/10/24 at 1900, Until Fri06/10/24 at 1952 chlorhexidine gluconate 1.2 mg/ml mouthwash (16 sources) Start: 06-16-2024 End: 07-09-2024 chlorhexidine (PERIDEX) 0.12 % oral solution Swish 15 mL by mouth for 30 seconds then lightly spit out 2 times daily. Do not swallow. 473 mL 3 06/16/2024 07/09/2024 Discontinued Start: 06-10-2024 15 mL, Oral, E VERY 12 HOURS 8 & 8, First dose on Fri06/10/24 at 2000, Until Discontinued, Post-op docusate sodium 10 mg/ml oral suspension (12 sources) Start: 06-16-2024 End: 06-26-2024 take 10 mL by mouth once daily docusate (COLACE) 50 MG/5ML oral liquid 10 mL by NG Tube route daily. 120 mL 06/16/2024 06/26/2024 Discontinued (Med List Cleanup) doxazosin 4 mg oral tablet (16 sources) alpha-Adrenergi c Imani Start: 06-16-2024 End: 07-09-2024 doxazosin (CARDURA) 4 MG tablet 1 Tablet by NG Tube route daily. 30 Tablet 3 06/16/2024 07/09/2024 Discontinued (Med List Cleanup) Start: 06-14-2024 take 4 mg by mouth once daily 4 mg, Oral, DAILY, First dose on Fri06/14/24 at 1300, Until Discontinued famotidine 20 mg oral tablet (1 source) Histamine-2 Receptor Antagonist Start: 06-10-2024 End: 06-11-2024 20 mg, NG Tube, 2 TIMES DAILY, First dose on Fri06/10/24 at 1900, Until Discontinued, Post-op gabapentin 100 mg oral capsule (6 sources) Anti-epileptic Agent Start: 06-04-2024 End: 09-29-2024 gabapentin (NEURONTIN) 100 MG capsule TAKE 1 CAPSULE 3 TIMES DAILY FOR 3 DAYS, THEN TAKE 2 CAPS 3 TIMES DAILY FOR 3 DAYS, THEN TAKE 3 CAPS 3 TIMES DAILY THEREAFTER. MAY CAUSE SLEEPINESS. CALL PCP TO REPORT EFFECTIVENESS 06/04/2024 09/29/2024 Discontinued 0.5 ml heparin sodium, porcine 34576 unt/ml prefilled syringe (1 source) Unfractionated Heparin, Anti-coagulant Start: 06-11-2024 inject 5000 [IU] by subcutaneous injection every eight hours 5,000 Units, Subcutaneous, Every 8 Hours - End of Shift, First dose on Fri06/11/24 at 1400, Until Discontinued 1 ml HYDROmorphone hydrochloride 0.2 mg/ml prefilled syringe (2 sources) Opioid Agonist Start: 06-12-2024 End: 06-14-2024 take 0.2 mg intravenously every four hours as needed for pain 0.2 mg, Intravenous Push, EVERY 4 HOURS PRN, Starting on 06/12/24 at 0853, Until 06/14/24 at 0852, Breakthrough Pain Start: 06-10-2024 End: 06-12-2024 ibuprofen 800 mg oral tablet (18 sources) Nonsteroidal Anti-inflammatory Drug Start: 05-21-2024 End: 07-09-2024 take 1 tablet by mouth every eight hours ibuprofen (MOTRIN) 800 MG tablet Take 800 mg by mouth every 8 hours. 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, unspecified Magic Mouth Wash (Bmx) 180 mL suspension (5 sources) Start: 08-04-2024 End: 05-30-2025 Magic Mouth Wash (Bmx) 180 mL suspension Discontinued 15 mL PO .qid as needed for pain 180 5 August 04, 2024 12:00am May 30, 2025 10:08am 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 diphenhydramine 12.5 mg/5 mL oral liquid 60 mL; aluminum-mag hydroxide-simethico ne 400 mg-400 mg-40 mg/5 mL oral susp 60 mL; Lidocaine Viscous 2 % mucosal solution 60 mL; Per 180 mL Start: 08-04-2024 Magic Mouth Wa sh (Bmx) 180 mL suspension Active 15 mL PO .qid as needed for pain 180 August 04, 2024 12:00am diphenhydramine 12.5 mg/5 mL oral liquid 60 mL; aluminum-mag hydroxide-simethicone 400 mg-400 mg-40 mg/5 mL oral susp 60 mL; Lidocaine Viscous 2 % mucosal solution 60 mL; Per 180 mL 50 ml magnesium sulfate 40 mg/ml injection (3 sources) Start: 06-11-2024 End: 06-13-2024 2 g (2,000 mg), Intravenous, ONCE, 1 dose, On 06/13/24 at 0900 metoprolol tartrate 25 mg oral tablet (20 sources) beta-Adrenergic Imani Start: 03-08-2024 End: 07-09-2024 take 1 tablet by mouth twice daily metoprolol (LOPRESSOR) 25 MG tablet Take 25 mg by mouth 2 times a day. 03/08/2024 07/09/2024 Discontinued (Med List Cleanup) Start: 12-22-2020 Metoprolol Tar trate 25 MG tablet Active 12.5 mg PO TWICE A DAY December 22, 2020 1:00am blood pressure Start: 12-22-2020 take 25 mg by mouth twice reuben y Metoprolol Tartrate Active 25 MG PO TWICE A DAY December 22, 2020 1:00am nitroglycerin 0.4 mg sublingual tablet (10 sources) Nitrate Vasodilator Start: 12-23-2020 End: 07-01-2024 Nitroglycerin 0.4 MG tablet, sublingual Discontinued 0.4 mg SL Q5M as needed for Cardiac/Chest Pain 30 0 December 23, 2020 1:00am July 01, 2024 11:42am Start: 12-23-2020 Nitroglycerin Active 0.4 MG SL Q5M December 23, 2020 1:00am ondansetron 4 mg disintegrating oral tablet (6 sources) Serotonin-3 Receptor Antagonist Start: 07-12-2024 End: 05-30-2025 take 1 tablet by mouth every eight hours as needed for nausea and vomiting Ondansetron 4 mg tablet,disintegrating Discontinued 4 mg PO Q8H as needed for nausea and vomiting 30 1 July 12, 2024 12:00am May 30, 2025 10:08am 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, unspecified Start: 06-10-2024 End: 06-14-2024 take 4 mg intravenously every six hours as needed for nausea 4 mg, Intravenous Push, EVERY 6 HOURS PRN, Starting on Ema 06/10/24 at 1825, Until 06/14/24 at 1824, Nausea, Post-op oxyCODONE hydrochloride 1 mg/ml oral solution (20 sources) Opioid Agonist Start: 09-08-2024 End: 09-15-2024 take 5 mL by mouth every four hours as needed for pain Oxycodone 5 mg/5 mL solution Discontinued 5 mg PO Q4H as needed for pain 250 7 0 September 08, 2024 September 14, 2024 1:00am September 15, 2024 1:09am 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, 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 take 5 mL PO/PEG q4 hrs prn for pain Start: 08-11-2024 End: 08-25-2024 take 5 mL by mouth every four hours as needed for pain Oxycodone 5 mg/5 mL solution Discontinued 5 mg PO Q4H as needed for pain 250 14 0 August 11, 2024 August 24, 2024 1:00am August 25, 2024 1:08am 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 28 Tablet 06/16/2024 06/23/2024 Start: 06-13-2024 oxyCODONE imme diate release tablet Start: 05-27-2024 End: 06-03-2024 take 1 tablet by mouth every six hours as needed for pain oxyCODONE 5 MG immediate release tablet Indications: 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) Take 1 Tablet by mouth every 6 hours as needed for Pain for up to 7 days. 28 Tablet 05/27/2024 06/03/2024 Active petrolatum 0.996 mg/mg topical gel (1 source) Start: 06-12-2024 Topical, 4 CJ ES DAILY PRN, Starting on 06/12/24 at 0808, Until Discontinued, Other, Dryness polyethylene glycol 3350 12461 mg powder for oral solution (12 sources) Osmotic Laxative Start: 06-16-2024 End: 06-26-2024 polyethylene glycol (MiraLax) packet Dissolve 1 Packet (17 g total) in 8 ounces of liquid and drink daily. 10 Packet 3 06/16/2024 06/26/2024 Discontinued (Med List Cleanup) potassium & sodium Phosphates (PHOS-NAK) 280-160-250 MG packet PACK (2 sources) Start: 06-13-2024 End: 06-13-2024 2 Packet, NG Tube, Once, 1 dose, On 06/13/24 at 0900 Start: 06-12-2024 End: 06-12-2024 2 Packet, Oral, Every 2 hour s, 2 doses, First dose on 06/12/24 at 0800, Last dose on 06/12/24 at 1000 predniSONE 10 mg oral tablet (4 sources) Start: 05-07-2024 predniSONE (DELTASONE) 10 MG tablet TAKE 4 TABLETS BY MOUTH TODAY, THEN 2 TABS ONCE DAILY FOR 4 DAYS, THEN 1 TAB ONCE DAILY FOR 4 DAYS, THEN 1/2 (ONE-HALF) TAB ONCE DAILY FOR 2 DAYS 05/07/2024 Suspended prochlorperazine 10 mg oral tablet (5 sources) Phenothiazine Start: 07-12-2024 End: 05-30-2025 take 1 tablet by mouth every six hours as needed for nausea and vomiting Prochlorperazine Maleate 10 mg tablet Discontinued 10 mg PO EVERY 6 HOURS as needed for nausea and vomiting 30 July 12, 2024 12:00am May 30, 2025 10:08am Chemotherapy-induced nausea and vomiting Nausea with vomiting, unspecified Adverse effect of antineoplastic and immunosuppressive drugs, initial encounter sennosides, care home 1.76 mg/ml oral solution (2 sources) Start: 06-10-2024 End: 06-12-2024 take 8.8 mg by mouth twice daily 8.8 mg (5 mL), Oral, 2 times daily, First dose (after last modification) on 06/12/24 at 0900, Until Discontinued sildenafil 100 mg oral tablet (15 sources) Phosphodiesterase 5 Inhibitor Start: 03-29-2024 End: 06-26-2024 sildenafil citrate (VIAGRA) 100 MG tablet 03/29/2024 06/26/2024 Discontinued (Med List Cleanup) 1000 ml sodium chloride 9 mg/ml injection (1 source) Start: 06-10-2024 End: 06-10-2024 Intravenous, at 25 mL/hr, CONTINUOUS, Starting on Ema 06/10/24 at 1900, Until Ema 06/10/24 at 1952 traMADol hydrochloride 50 mg oral tablet (4 sources) Opioid Agonist Start: 05-21-2024 take 1-2 tablets by mouth every eight hours as needed for pain tramadol (ULTRAM) 50 MG tablet TAKE 1 TO 2 TABLETS BY MOUTH EVERY 8 HOURS NEEDED FOR TONGUE PAIN. 05/21/2024 Suspended TUBE FEED (1 source) Start: 06-10-2024 End: 06-13-2024 NG Tube, at 20-70 mL/hr, CONTINUOUS, Starting on Fri06/10/24 at 2030, Until Fri06/13/24 at 1619, Tube Feeding: No Meal Tray, Tube feeding formula: Impact Peptide 1.5/Pivot 1.5 TUBE FEED BOLUS 360 mL (1 source) Start: 06-15-2024 360 mL, NG Tube, 4 times daily ENAR, First dose (after last modification) on Fri06/15/24 at 1630, Until Discontinued, Tube Feeding: No Meal Tray, Tube feeding formula: Boost [facility] TUBE FEED BOLUS 400 mL (1 source) Start: 06-13-2024 End: 06-15-2024 400 mL, NG Tube, 4 times daily ENAR, First dose on Fri06/13/24 at 2000, Until Discontinued, Tube Feeding: No Meal Tray, Tube feeding formula: Impact Peptide 1.5/Pivot 1.5 Problems Active Problems Problem Classification Problem Date Documented Da te Episodic/Chronic Anxiety disorders (10 sources) Anxiety; Translations: [Anxiety disorder, unspecified] 12-22-2020 Chronic Cancer of head and neck (20 sources) Squamous cell carcinoma of mouth; Translations: [Malignant neoplasm of mouth, unspecified] Onset: 05-11-2024 05-11-2024 Chronic Conduction disorders (2 sources) Right bundle branch block; Translations: [Unspecified right bundle-branch block] Onset: 05-26-2024 05-26-2024 Chronic Disorders of lipid metabolism (10 sources) Hyperlipidemia; Translations: [Hyperlipidemia, unspecified] 12-22-2020 Chronic Essential hypertension (20 sources) Hypertensive disorder; Translations: [Essential (primary) hypertension] Onset: 01-27-2024 12-22-2020 Chronic Genitourinary symptoms and ill-defined conditions (1 source) Retention of urine; Translations: [Retention of urine, unspecified] 06-16-2024 Episodic Maintenance chemotherapy; radiotherapy (7 sources) Patient encounter status; Translations: [Encounter for antineoplastic chemotherapy] Onset: 08-02-2024 08-23-2024 Chronic Comment on above: Counts and chemistry reviewed, OK for therapy. Nonspecific chest pain (10 sources) Chest discomfort; Translations: [Other chest pain] 12-22-2020 Episodic Nutritional deficiencies (2 sources) Nutritional marasmus; Translations: [Unspecified severe protein-calorie malnutrition] Onset: 06-23-2024 06-23-2024 Chronic Other ear and sense organ disorders (5 sources) Hearing loss; Translations: [Unspecified hearing loss, unspecified ear] 07-08-2024 Chronic Other gastrointestinal disorders (8 sources) Dysphagia; Translations: [Dysphagia, unspecified] 08-02-2024 Episodic Other non-epithelial cancer of skin (11 sources) Squamous cell carcinoma of skin, unspecified; Translations: [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] 09-14-2024 Episodic Other nutritional; endocrine; and metabolic disorders (19 sources) Body mass index 30+ - obesity; Translations: [Obesity, unspecified] 12-22-2020 Chronic Other nutritional; endocrine; and metabolic disorders (1 source) Body mass index (BMI) 30.0-30.9, adult; Translations: [Body mass index (BMI) 30.0-30.9, adult] Onset: 03-02-2025 Chronic Other nutritional; endocrine; and metabolic disorders (1 source) Body mass index (BMI) 36.0-36.9, adult; Translations: [Body mass index (BMI) 36.0-36.9, adult] Onset: 05-26-2024 Chronic Other nutritional; endocrine; and metabolic disorders (1 source) Weight loss; Translations: [Abnormal weight loss] 06-23-2024 Episodic Screening and history of mental health and substance abuse codes (20 sources) Ex-tobacco user; Translations: [Personal history of nicotine dependence] Onset: 05-11-2024 12-22-2020 Episodic Secondary malignancies (4 sources) Secondary and unspecified malignant neoplasm of lymph nodes of head, face and neck; Translations: [Secondary and unspecified malignant neoplasm of lymph nodes of head, face, and neck] Onset: 12-14-2024 06-23-2024 Chronic Syncope (10 sources) Near syncope; Translations: [Syncope and collapse] 12-22-2020 Episodic Unclassified (3 sources) C77.0 - Secondary and unspecified malignant neoplasm of lymph nodes of head, face and neck,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.9 - Malignant neoplasm of mouth, unspecified Past or Other Problems Problem Classification Problem Date Documented Da te Episodic/Chronic Administrative/social admission (9 sources) Patient encounter status; Translations: [Dietary counseling and surveillance] Onset: 4 06-23-2024 Episodic Cardiac dysrhythmias (2 sources) Bradycardia; Translations: [Bradycardia, unspecified] Onset: 4 05-26-2024 Episodic Diseases of mouth; excluding dental (1 source) Mass of tongue; Translations: [Other diseases of tongue] 05-06-2024 Episodic E Codes: Adverse effects of medical drugs (1 source) Adverse effect of antineoplastic and immunosuppressive drugs, initial encounter; Translations: [Adverse effect of antineoplastic and immunosuppressive drugs, initial encounter] Onset: Episodic Immunizations and screening for infectious disease (1 source) Encounter for immunization; Translations: [Encounter for immunization] Onset: Episodic Nausea and vomiting (1 source) Nausea with vomiting, unspecified; Translations: [Nausea with vomiting, unspecified] Onset: Episodic Other aftercare (1 source) Encounter for adjustment and management of vascular access device; Translations: [Encounter for adjustment and management of vascular access device] Onset: Episodic Other gastrointestinal disorders (20 sources) Oral phase dysphagia; Translations: [Dysphagia, oral phase] Onset: 4 05-19-2024 Episodic Other gastrointestinal disorders (1 source) Dysphagia, oral phase; Translations: [Dysphagia, oral phase] Onset: Episodic Other gastrointestinal disorders (1 source) Dysphagia, unspecified; Translations: [Dysphagia, unspecified] Onset: Episodic Other nutritional; endocrine; and metabolic disorders (1 source) Abnormal weight loss; Translations: [Abnormal weight loss] Onset: Episodic Other screening for suspected conditions (not mental disorders or infectious disease) (10 sources) Electrocardiogram abnormal; Translations: [Abnormal electrocardiogram [ECG] [EKG]] Onset: 4 05-26-2024 Episodic Poisoning by other medications and drugs (9 sources) Mucositis following therapy; Translations: [Oral mucositis (ulcerative) due to radiation] Onset: 4 09-14-2024 Episodic Results Test Name Value Interpretation Reference Range Facility Modified Barium Swallow Stud yon 06-03-2025 Modified Barium Swallow Study Normal [facility] Radiation Oncology Visiton 0 05-30-2025 Radiation Oncology Visit Normal [facility] Addendum Noteon 03-02-2025 [employer] Authentication Interface Message Text Addended by: PATRICK KRISHNAMURTHY on: 03/02/2025 11:57 AM Modules accepted: Orders Normal [facility] [employer] [facility] Progress Noteson 03-02-2025 [employer] Authentication Interface Message Text Cancer history: [id number] 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 He's been doing well and hasn't lost much weight. Patient has gone a week without needing his feeding tube. His sense of taste is still deficient, but he has noticed improvement with tasting things like sour foods, and has been getting enough nutrition. He had some radiation sores in his mouth, but those have healed. Energy levels are good. Interval Hx: Quirino is here for tongue cancer follow-up and surveillance. He's been doing well, having made near-complete recovery since the radiation. Patient can eat whatever he wants, but does struggle a bit with more solid things. Occasional twinges of pain in his arm where the free flap was, but no other significant pain. Energy level is back, weight is stable, and a recent CT was negative. Allergies Patient has no known allergies. Medications No current outpatient medications on file. No current facility-administered medications for this visit. Family History The patient's family history is not on file.. Social History: Social History Socioeconomic History Marital status: Unknown Highest education level: 12th grade Tobacco Use Smoking status: Former Current packs/day: 0.00 Types: Cigarettes Quit date: 1974 Years since quittin.4 Smokeless tobacco: Never Substance and Sexual Activity Alcohol use: Not Currently Drug use: Not Currently Social Drivers of Health Financial Resource Strain: Patient Declined (09/29/2024) Overall Financial Resource Strain (CARDIA) Difficulty of Paying Living Expenses: Patient declined Food Insecurity: No Food Insecurity (09/29/2024) Hunger Vital Sign Worried About Running Out of Food in the Last Year: Never true Ran Out of Food in the Last Year: Never true Transportation Needs: No Transportation Needs (09/29/2024) PRAPARE - Transportation Lack of Transportation (Medical): No Lack of Transportation (Non-Medical): No Physical Activity: Insufficiently Active (09/29/2024) Exercise Vital Sign Days of Exercise per Week: 3 days Minutes of Exercise per Session: 30 min Stress: Patient Declined (09/29/2024) [employer] [place] [employer] - Occupational Stress Questionnaire Feeling of Stress : Patient declined Social Connections: Socially Integrated (09/29/2024) Social Connection and Isolation Panel [NHANES] Frequency of Communication with Friends and Family: More than three times a week Frequency of Social Gatherings with Friends and Family: More than three times a week Attends [employer] Services: More than 4 times per year Active Member of Clubs or Organizations: Yes Attends Club or Organization Meetings: Never Marital Status: Intimate Partner Violence: Not At Risk (09/29/2024) Humiliation, Afraid, Rape, and Kick questionnaire Fear of Current or Ex-Partner: No Emotionally Abused: No Physically Abused: No Sexually Abused: No Review of Systems - as per HPI, otherwise the balance of 10 systems is negative Physical Exam There were no vitals filed for this visit. General apperance: WN/WD adult in no apparent distress, sitting in a chair Ability to communicate: normal voice without hoarseness Head and Face: Atraumatic, normocephalic; skin with no masses or lesions; sinuses nontender to palpation, face symmetric with normal movement Salivary Glands: No enlargement or tenderness of parotid or submandibular glands Ears:External ears are intact without any lesions or masses. Eyes: EOM Intact, sclera anicteric, no conjunctival injection. Nose: External nose midline Oral Cavity: Lips, gums, gingiva are normal. Tongue protrusion is midline and non-tethered. Mild bulkiness to the flap, but no tethering. He can lift his tongue almost to the roof of mouth, and protrude it past his lips. Tongue soft, with no signs of recurrence. Oropharynx: the soft palate, tonsils, and lateral pharyngeal kohler are without lesions or masses; BOT is soft to palpation Neck: soft, no LAD, thyroid gland non-enlarged. A bit of radiation fibrosis, but no lymphedema or LAD. CV: No clubbing/cyanosis/lana a in hands Respiration: Breathing comfortably, no stridor or stertor Neuro: A AND Ox3, Cranial nerves 2-12 intact and symmetric. Normal affect. Specimen for Surgical Path 06/10/2024 Final Diagnosis A. Anterior inferior mucosal margin, excision: Squamous mucosa, negative for malignancy. B. Tongue, left hemiglossectomy: INVASIVE, POORLY-DIFFERENTIATED SQUAMOUS CELL CARCINOMA (2.6 cm in greatest dimension, 11 mm depth of invasion), see synoptic checklist. Extensive lymphovascular and perineural invasion present, (more content not included)... Normal [facility] [employer] [facility] [employer] Authentication Interface Message Text Patient was identified by name date of ,. Pharmacy updated vitals sign taken patient in exam room ready for MD. Carlotta Roman MA Normal [employer] [facility] D/C Summary- SPon 01-26-2025 D/C Summary- SP Normal [facility] Surgery Visit Reporton 12-[address] [facility] Absolute lymphocyte countOrd ered By: Harley Maurice on 12-14-2024 Lymphocytes Auto (Unsp spec) [#/Vol] 1.26 10*3/uL 0.83-4.51 [facility] Absolute neutrophil countOrd ered By: Harley Maurice on 12-14-2024 Neutrophils (Bld) [#/Vol] 3.1 10*3/uL 2.0-7.7 [facility] Anion gap in Serum or Plasma Ordered By: Harley Maurice on 12-14-2024 Anion gap [Moles/Vol] 11 mmol/L 5-15 [facility] Automated lymphocyte count a s percentage of total leukocytesOrdered By: Harley Maurice on 12-14-2024 Lymphocytes/100 WBC Auto (Unsp spec) 25.2 % 19-41 [facility] BUN/creatinine ratioOrdered By: Harley Maurice on 12-14-2024 Urea nitrogen/Creatinine [Mass ratio] 15.1 mg/mg 10-20 [facility] Basophil percentageOrdered B y: Harley Maurice on 12-14-2024 Basophils/100 WBC (Bld) 0.4 % 0-1 [facility] Bilirubin, totalOrdered By: Harley Maurice on 12-14-2024 Bilirubin [Mass/Vol] 1.07 mg/dL 0.00-1.30 [facility] CBC W/Diff, Automatedon Absolute Lymph 1.26 X10 3/uL Normal 0.83-4.51 [facility] Comment on above: Performed By: #### L 100.0100, L500.4050, L501.2300, L501.5200 ####[facility] [address] [place], [address] Absolute Neut 3.1 X10 3/uL Normal 2.0-7.7 [facility] Comment on above: Performed By: #### L 100.0100, L500.4050, L501.2300, L501.5200 ####[facility] [address] [place], [address] Basophils/100 WBC (Bld) 0.4 % Normal 0-1 [facility] Comment on above: Performed By: #### L 100.0100, L500.4050, L501.2300, L501.5200 ####[facility] [address] [place], [address] Eosinophils/100 WBC (Bld) 2.6 % Normal 0-5 [facility] Comment on above: Performed By: #### L 100.0100, L500.4050, L501.2300, L501.5200 ####[facility] [address] [place], [address] Erythrocyte distribution width (RBC) [Ratio] 13.2 % Normal 11.6-14.6 [facility] Comment on above: Performed By: #### L 100.0100, L500.4050, L501.2300, L501.5200 ####[facility] [address] [place], [address] Hematocrit (Bld) [Volume fraction] 40.8 % Normal 40-54 [facility] Comment on above: Performed By: #### L 100.0100, L500.4050, L501.2300, L501.5200 ####[facility] [address] [place], [address] Hemoglobin (Bld) [Mass/Vol] 13.6 g/dL Normal 13.0-16.5 [facility] Comment on above: Performed By: #### L 100.0100, L500.4050, L501.2300, L501.5200 ####[facility] [address] [place], [address] IG% 0.400 Normal 0.0-0.9 [facility] Comment on above: Result Comment: IG% - Immature Granulocytes (promyelocytes, myelocytes andmetamyelocytes) > 1% indicates that a LEFT SHIFT is Present. Performed By: #### L 100.0100, L500.4050, L501.2300, L501.5200 ####[facility] [address] [place], [address] Lymphocytes/100 WBC (Bld) 25.2 % Normal 19-41 [facility] Comment on above: Performed By: #### L 100.0100, L500.4050, L501.2300, L501.5200 ####[facility] [address] [place], [address] MCH (RBC) [Entitic mass] 31.3 pg Normal 27.0-32.0 [facility] Comment on above: Performed By: #### L 100.0100, L500.4050, L501.2300, L501.5200 ####[facility] [address] [place], [address] MCHC (RBC) [Mass/Vol] 33.3 g/dL Normal 32-36 [facility] Comment on above: Performed By: #### L 100.0100, L500.4050, L501.2300, L501.5200 ####[facility] [address] [place], [address] MCV (RBC) [Entitic vol] 93.8 fL Normal 80-94 [facility] Comment on above: Performed By: #### L 100.0100, L500.4050, L501.2300, L501.5200 ####[facility] [address] [place], [address] Monocytes/100 WBC (Bld) 9.2 % Normal 0-10 [facility] Comment on above: Performed By: #### L 100.0100, L500.4050, L501.2300, L501.5200 ####[facility] [address] [place], [address] Neutrophils/100 WBC (Bld) 62.2 % Normal 47-70 [facility] Comment on above: Performed By: #### L 100.0100, L500.4050, L501.2300, L501.5200 ####[facility] [address] [place], [address] Nucleated RBC (Bld) [#/Vol] 0 10*3/uL Normal 0-5 [facility] Comment on above: Performed By: #### L 100.0100, L500.4050, L501.2300, L501.5200 ####[facility] [address] [place], [address] Platelet mean volume (Bld) [Entitic vol] 10.2 fL Normal 6.2-12.0 [facility] Comment on above: Performed By: #### L 100.0100, L500.4050, L501.2300, L501.5200 ####[facility] [address] [place], [address] Platelets (Bld) [#/Vol] 151 10*3/uL Normal 150-450 [facility] Comment on above: Performed By: #### L 100.0100, L500.4050, L501.2300, L501.5200 ####[facility] [address] [place], [address] RBC (Bld) [#/Vol] 4.35 10*6/uL Low 4.6-6.2 [facility] Comment on above: Performed By: #### L 100.0100, L500.4050, L501.2300, L501.5200 ####[facility] [address] [place], [address] RDW SD 45.0 fl High 35.1-43.9 [facility] Comment on above: Performed By: #### L 100.0100, L500.4050, L501.2300, L501.5200 ####[facility] [address] [place], [address] WBC (Bld) [#/Vol] 5.0 10*3/uL Normal 4.4-11.0 [facility] Comment on above: Performed By: #### L 100.0100, L500.4050, L501.2300, L501.5200 ####[facility] [address] [place], [address] Carbon dioxide, total [Moles /volume] in Central venous bloodOrdered By: Harley Maurice on 12-14-2024 CO2 [Moles/Vol] 22.7 mmol/L 21.0-32.0 [facility] Chloride assayOrdered By: Imer Maurice on 12-14-2024 Chloride [Moles/Vol] 103 mmol/L 98-108 [facility] Comprehensive Metabolic Prof ilon 12-14-2024 AST [Catalytic activity/Vol] 28 U/L Normal <=37 [facility] Comment on above: Performed By: #### L 100.0100, L500.4050, L501.2300, L501.5200 ####[facility] [address] [place], [address] Eosinophil percentageOrdered By: Harley Maurice on 12-14-2024 Eosinophils/100 WBC (Bld) 2.6 % 0-5 [facility] Erythrocyte distribution wid th ratioOrdered By: Harley Maurice on 12-14-2024 Erythrocyte distribution width (RBC) [Ratio] 13.2 % 11.6-14.6 [facility] Erythrocyte distribution wid th standard deviationOrdered By: Harley Maurice on 12-14-2024 Erythrocyte distribution width (RBC) [Entitic vol] 45.0 fL High 35.1-43.9 [facility] Erythrocyte distribution width (RBC) [Ratio] 45.0 fl High 35.1-43.9 [facility] Estimation of creatinine kenneth aranceOrdered By: Harley Maurice on 12-14-2024 Estimated Creatinine Clearance Calc 64.99 ml/min 50-250 [facility] GFR/1.73 sq M.predicted mark g non-blacks MDRD (S/P/Bld) [Vol rate/Area]Ordered By: Harley Maurice on 12-14-2024 Estimated GFR (MDRD) Non-Af Amer 73 >60 [facility] Comment on above: mL/min/1.73m2 CKD-EP I Creatinine Equation (2020) Glomerular filtration rate ( GFR) estimation/1.73 sq m using serum, plasma, or whole bOrdered By: Harley Maurice on 12-14-2024 GFR/1.73 sq M.predicted among non-blacks MDRD (S/P/Bld) [Vol rate/Area] 73 mL/min/{1.73_m2} >60 [facility] Comment on above: mL/min/1.73m2 CKD-EP I Creatinine Equation (2020) Hematocrit Auto (Bld) [Volum e fraction]Ordered By: Harley Maurice on 12-14-2024 Hematocrit (Bld) [Volume fraction] 40.8 % 40-54 [facility] Hemoglobin measurementOrdere d By: Harley Maurice on 12-14-2024 Hemoglobin (Bld) [Mass/Vol] 13.6 g/dL 13.0-16.5 [facility] Immature granulocytes/100 WB C Auto (Bld)Ordered By: [facility] on 12-14-2024 Immature granulocytes/100 WBC (Bld) 0.400 % 0.0-0.9 [facility] Comment on above: IG% - Immature Granu locytes (promyelocytes, myelocytes and metamyelocytes) > 1% indicates that a LEFT SHIFT is Present. Laboratory - Chemistry and C hemistry - challengeOrdered By: Harley Maurice on 12-14-2024 AST [Catalytic activity/Vol] 28 U/L <38 [facility] Lymphocytes Auto (Unsp spec) [#/Vol]Ordered By: Harley Maurice on 12-14-2024 Lymphocytes (Bld) [#/Vol] 1.26 10*3/uL 0.83-4.51 [facility] Lymphocytes/100 WBC Auto (Un sp spec)Ordered By: [facility] on 12-14-2024 Lymphocytes/100 WBC (Bld) 25.2 % 19-41 [facility] MCV (mean corpuscular volume ) determinationOrdered By: [facility] on 12-14-2024 MCV (RBC) [Entitic vol] 93.8 fL 80-94 [facility] Magnesiumon 12-14-2024 Magnesium [Mass/Vol] 1.8 mg/dL Normal 1.5-2.2 [facility] Comment on above: Performed By: #### L 100.0100, L500.4050, L501.2300, L501.5200 ####[facility] [address] [place], [address] Magnesium (Unsp spec) [Mass/ Vol]Ordered By: [facility] 12-14-[facility] Magnesium [Mass/Vol] 1.8 mg/dL 1.5-2.2 [facility] Magnesium measurement (mass/ volume)Ordered By: Harley Maurice on 12-14-2024 Magnesium (Unsp spec) [Mass/Vol] 1.8 mg/dL 1.5-2.2 [facility] Mean corpuscular hemoglobin (MCH) determinationOrdered By: Harley Maurice on 12-14-2024 MCH (RBC) [Entitic mass] 31.3 pg 27.0-32.0 [facility] Mean corpuscular hemoglobin concentration (MCHC) determinationOrdered By: Harley Maurice on 12-14-2024 MCHC (RBC) [Mass/Vol] 33.3 g/dL 32-36 [facility] Mean platelet volume determi nationOrdered By: Harley Maurice on 12-14-2024 Platelet mean volume (Bld) [Entitic vol] 10.2 fL 6.2-12.0 [facility] Monocyte percentageOrdered B y: Harley Maurice on 12-14-2024 Monocytes/100 WBC (Bld) 9.2 % 0-10 [facility] Neutrophil percentageOrdered By: Harley Maurice on 12-14-2024 Neutrophils/100 WBC (Bld) 62.2 % 47-70 [facility] Nucleated red blood cell per centageOrdered By: Harley Maurice on 12-14-2024 Nucleated RBC/100 WBC (Bld) [Ratio] 0 % 0-5 [facility] Oncology Visit Reporton Oncology Visit Report Normal [facility] Phosphoruson 12-14-2024 Phosphate [Mass/Vol] 3.6 mg/dL Normal 2.7-4.5 [facility] Comment on above: Performed By: #### L 100.0100, L500.4050, L501.2300, L501.5200 ####[facility] [address] [place], [place], [id number] Platelet countOrdered By: Imer Maurice on 12-14-2024 Platelets (Bld) [#/Vol] 151 10*3/uL 150-450 [facility] Potassium (Unsp spec) [Mass/ Vol]Ordered By: Harley Maurice on 12-14-2024 Potassium [Moles/Vol] 4.1 mmol/L 3.3-5.1 [facility] Potassium measurement (mass/ volume)Ordered By: Harley Maurice on 12-14-2024 Potassium (Unsp spec) [Mass/Vol] 4.1 mmol/L 3.3-5.1 [facility] RBC Auto (Bld) [#/Vol]Ordere d By: Harley Maurice on 12-14-2024 RBC (Bld) [#/Vol] 4.35 10*6/uL Low 4.6-6.2 [facility] Radiation Oncology Visiton 0 12-14-2024 Radiation Oncology Visit Normal [facility] Serum creatinine measurement (mass/volume)Ordered By: Harley Maurice on 12-14-2024 Creatinine [Mass/Vol] 1.06 mg/dL 0.70-1.20 [facility] Serum globulin measurementOr dered By: Harley Maurice on 12-14-2024 Globulin (S) [Mass/Vol] 2.8 g/dL 2.2-4.2 [facility] Serum glucose measurement (m ass/volume)Ordered By: Harley Maurice on 12-14-2024 Glucose [Mass/Vol] 91 mg/dL 70-99 [facility] Serum or plasma alanine lewis otransferase (ALT) measurementOrdered By: Harley Maurice on 12-14-2024 ALT [Catalytic activity/Vol] 15 U/L <47 [facility] Serum or plasma albumin peewee urement (mass/volume)Ordered By: Harley Maurice on 12-14-2024 Albumin [Mass/Vol] 4.1 g/dL 3.4-4.8 [facility] Serum or plasma albumin/glob ulin mass ratioOrdered By: Harley Maurice on 12-14-2024 Albumin/Globulin [Mass ratio] 1.4 {ratio} 0.9-2.4 [facility] Serum or plasma alkaline shena sphatase measurementOrdered By: Harley Maurice on 12-14-2024 ALP [Catalytic activity/Vol] 72 U/L 40-129 [facility] Serum or plasma calcium peewee urement (mass/volume)Ordered By: Mansmiriam Maurice on 12-14-2024 Calcium [Mass/Vol] 9.5 mg/dL 7.6-11.0 [facility] Serum or plasma urea nitroge n measurement (mass/volume)Ordered By: Harley Maurice on 12-14-2024 Urea nitrogen [Mass/Vol] 16 mg/dL 4-19 [facility] Serum phosphorus measurement Ordered By: Harley Maurice on 12-14-2024 Phosphorus Level 3.6 mg/dL 2.7-4.5 [facility] Sodium levelOrdered By: Leeann miriam Kaylene on 12-14-2024 Sodium [Moles/Vol] 137 mmol/L 133-145 [facility] Total proteinOrdered By: Dutch Maurice on 12-14-2024 Protein [Mass/Vol] 6.9 g/dL 5.9-8.4 [facility] White blood cell (WBC) count Ordered By: Harley Maurice on 12-14-2024 WBC (Bld) [#/Vol] 5.0 10*3/uL 4.4-11.0 [facility] Chest WITH Contraston 2024 Chest WITH Contrast Normal [facility] Modified Barium Swallow Stud yon 12-10-2024 Modified Barium Swallow Study Normal [facility] Soft Tissue Neck WITH Contra ston 12-10-2024 Soft Tissue Neck WITH Contrast Normal [facility] Progress Noteson 09-29-2024 [employer] Authentication Interface Message Text Patient was identified by name date of ,. Pharmacy updated vitals sign taken patient in exam room ready for MD. 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 Mi for a cancerous tongue lesion that's been present for several months. He's here today for pre-op regarding tongue cancer, currently scheduled for surgery on the . I hadn't had a chance to meet him, so we're establish care and discussing the procedure one more time. He has tongue pain radiating to his ear, but aside from that, no significant changes since his visit with Dr. Mi. Interval Hx: Quirino is here for follow-up after excision and radiation for his tongue cancer, having finished the latter on 09/01. He's been doing well and hasn't lost much weight. Patient has gone a week without needing his feeding tube. His sense of taste is still deficient, but he has noticed improvement with tasting things like sour foods, and has been getting enough nutrition. He had some radiation sores in his mouth, but those have healed. Energy levels are good. Allergies Patient has no known allergies. Medications Current Outpatient Medications Medication Sig Dispense Refill gabapentin (NEURONTIN) 100 MG capsule TAKE 1 CAPSULE 3 TIMES DAILY FOR 3 DAYS, THEN TAKE 2 CAPS 3 TIMES DAILY FOR 3 DAYS, THEN TAKE 3 CAPS 3 TIMES DAILY THEREAFTER. MAY CAUSE SLEEPINESS. CALL PCP TO REPORT EFFECTIVENESS No current facility-administered medications for this visit. Family History The patient's family history is not on file.. Social History: Social History Socioeconomic History Marital status: Unknown Highest education level: 12th grade Tobacco Use Smoking status: Former Current packs/day: 0.00 Types: Cigarettes Quit date: 1975 Years since quittin.9 Smokeless tobacco: Never Substance and Sexual Activity Alcohol use: Not Currently Drug use: Not Currently Social Drivers of Health Financial Resource Strain: Patient Declined (09/29/2024) Overall Financial Resource Strain (CARDIA) Difficulty of Paying Living Expenses: Patient declined Food Insecurity: No Food Insecurity (09/29/2024) Hunger Vital Sign Worried About Running Out of Food in the Last Year: Never true Ran Out of Food in the Last Year: Never true Transportation Needs: No Transportation Needs (09/29/2024) PRAPARE - Transportation Lack of Transportation (Medical): No Lack of Transportation (Non-Medical): No Physical Activity: Insufficiently Active (09/29/2024) Exercise Vital Sign Days of Exercise per Week: 3 days Minutes of Exercise per Session: 30 min Stress: Patient Declined (09/29/2024) [employer] [place] [employer] - Occupational Stress Questionnaire Feeling of Stress : Patient declined Social Connections: Socially Integrated (09/29/2024) Social Connection and Isolation Panel [NHANES] Frequency of Communication with Friends and Family: More than three times a week Frequency of Social Gatherings with Friends and Family: More than three times a week Attends [employer] Services: More than 4 times per year Active Member of Clubs or Organizations: Yes Attends Club or Organization Meetings: Never Marital Status: Intimate Partner Violence: Not At Risk (09/29/2024) Humiliation, Afraid, Rape, and Kick questionnaire Fear of Current or Ex-Partner: No Emotionally Abused: No Physically Abused: No Sexually Abused: No Review of Systems - as per HPI, otherwise the balance of 10 systems is negative Physical Exam There were no vitals filed for this visit. General apperance: WN/WD adult in no apparent distress, sitting in a chair Ability to communicate: normal voice without hoarseness Head and Face: Atraumatic, normocephalic; skin with no masses or lesions; sinuses nontender to palpation, face symmetric with normal movement Salivary Glands: No enlargement or tenderness of parotid or submandibular glands Ears:External ears are intact without any lesions or masses. Eyes: EOM Intact, sclera anicteric, no conjunctival injection. Nose: External nose midline Oral Cavity: Lips, gums, gingiva are normal. Tongue protrusion is midline and non-tethered. Flap on the left lateral aspect of his tongue looks nice and healed. It's started to atrophy a bit, but still has a little bulkiness to it. Limited mobility of the tongue to the left, but he can protrude and reach the roof of mouth well. One residual radiation sore along the buccal mucosa, but no mucositis otherwise. Oropharynx: the soft palate, tonsils, and lateral pharyngeal kohler are without lesions or masses; BOT is soft to palpation Neck: soft, no LAD, thyroid gland non-enlarged. Incision has healed beautifully. Just a bit of lymphedema above the flap. CV: No clubbing/cyanosis/lana a in hands Respiration: Jeny (more content not included)... Normal [facility] [employer] [facility] Radiation Oncology Visiton 1 11-28-2023 Radiation Oncology Visit Normal [facility] Basic Metabolic Profile (BMP )on 09-14-2024 BUN/CRE 34.4 RATIO High 10-20 [facility] Comment on above: Performed By: #### L 500.2500, L501.5200 ####[facility] [address] [place], [address] CA,Total 9.4 mg/dL Normal 8.5-10.1 [facility] Comment on above: Performed By: #### L 500.2500, L501.5200 ####[facility] [address] [place], [address] Chloride [Moles/Vol] 103 mmol/L Normal 98-107 [facility] Comment on above: Performed By: #### L 500.2500, L501.5200 ####[facility] [address] [place], [address] CO2 [Moles/Vol] 26.0 mmol/L Normal 21.0-32.0 [facility] Comment on above: Performed By: #### L 500.2500, L501.5200 ####[facility] [address] [place], [address] Creatinine [Mass/Vol] 0.81 mg/dL Normal 0.70-1.30 [facility] Comment on above: Result Comment: The validity of the calculated GFR GFRAA in patients over70 years has not been determined. Clinical correlation isessential. Performed By: #### L 500.2500, L501.5200 ####[facility] [address] [place], [address] ECRCL 87.15 ml/min Normal [facility] Comment on above: Performed By: #### L 500.2500, L501.5200 ####[facility] [address] [place], [address] EST GFR - AA 119 mL/min Normal >60 [facility] Comment on above: Result Comment: Afri can Andorran GFR Calc Performed By: #### L 500.2500, L501.5200 ####[facility] [address] [place], [address] GAP 7 Normal 5-15 [facility] Comment on above: Performed By: #### L 500.2500, L501.5200 ####[facility] [address] [place], [address] GFR/1.73 sq M.predicted among non-blacks MDRD (S/P/Bld) [Vol rate/Area] 98 mL/min/{1.73_m2} Normal >60 [facility] Comment on above: Result Comment: Non- GFR Calc Performed By: #### L 500.2500, L501.5200 ####[facility] [address] [place], [address] Glucose [Mass/Vol] 95 mg/dL Normal 74-106 [facility] Comment on above: Performed By: #### L 500.2500, L501.5200 ####[facility] [address] [place], [address] Potassium [Moles/Vol] 4.2 mmol/L Normal 3.5-5.1 [facility] Comment on above: Performed By: #### L 500.2500, L501.5200 ####[facility] [address] [place], [address] Sodium [Moles/Vol] 136 mmol/L Normal 136-145 [facility] Comment on above: Performed By: #### L 500.2500, L501.5200 ####[facility] [address] [place], [address] Urea nitrogen [Mass/Vol] 28 mg/dL High 7-18 [facility] Comment on above: Performed By: #### L 500.2500, L501.5200 ####[facility] [address] [place], [address] Estimated glomerular filtrat ion rate (GFR) AmericanOrdered By: Ema Hdez on 09-14-2024 Estimated GFR (MDRD) Amer 119 mL/min >60 [facility] Comment on above: GFR Calc Magnesiumon 09-14-2024 Magnesium [Mass/Vol] 2.2 mg/dL Normal 1.6-2.6 [facility] Comment on above: Performed By: #### L 500.2500, L501.5200 ####[facility] [address] [place], [address] Oncology Visit Reporton Oncology Visit Report Normal [facility] Basic Metabolic Profile (BMP )on 09-06-2024 BUN/CRE 25.2 RATIO High 10-20 [facility] Comment on above: Performed By: #### L 500.2500, L501.5200, L100.0100 ####[facility] [address] [place], [address] CA,Total 9.4 mg/dL Normal 8.5-10.1 [facility] Comment on above: Performed By: #### L 500.2500, L501.5200, L100.0100 ####[facility] [address] [place], [address] Chloride [Moles/Vol] 102 mmol/L Normal 98-107 [facility] Comment on above: Performed By: #### L 500.2500, L501.5200, L100.0100 ####[facility] [address] [place], [address] CO2 [Moles/Vol] 26.0 mmol/L Normal 21.0-32.0 [facility] Comment on above: Performed By: #### L 500.2500, L501.5200, L100.0100 ####[facility] [address] [place], [address] Creatinine [Mass/Vol] 0.83 mg/dL Normal 0.70-1.30 [facility] Comment on above: Result Comment: The validity of the calculated GFR GFRAA in patients over70 years has not been determined. Clinical correlation isessential. Performed By: #### L 500.2500, L501.5200, L100.0100 ####[facility] [address] [place], [address] ECRCL 85.28 ml/min Normal [facility] Comment on above: Performed By: #### L 500.2500, L501.5200, L100.0100 ####[facility] [address] [place], [address] EST GFR - AA 116 mL/min Normal >60 [facility] Comment on above: Result Comment: Afri can Andorran GFR Calc Performed By: #### L 500.2500, L501.5200, L100.0100 ####[facility] [address] [place], [address] GAP 6 Normal 5-15 [facility] Comment on above: Performed By: #### L 500.2500, L501.5200, L100.0100 ####[facility] [address] [place], [address] GFR/1.73 sq M.predicted among non-blacks MDRD (S/P/Bld) [Vol rate/Area] 95 mL/min/{1.73_m2} Normal >60 [facility] Comment on above: Result Comment: Non- GFR Calc Performed By: #### L 500.2500, L501.5200, L100.0100 ####[facility] [address] [place], [address] Glucose [Mass/Vol] 165 mg/dL High 74-106 [facility] Comment on above: Result Comment: Fast ing Glucose result greater than or equal to 126 mg/dLsuggests DIABETES MELLITUS per A.D.A. criteria. Performed By: #### L 500.2500, L501.5200, L100.0100 ####[facility] [address] [place], [address] Potassium [Moles/Vol] 3.6 mmol/L Normal 3.5-5.1 [facility] Comment on above: Performed By: #### L 500.2500, L501.5200, L100.0100 ####[facility] [address] [place], [address] Sodium [Moles/Vol] 134 mmol/L Low 136-145 [facility] Comment on above: Performed By: #### L 500.2500, L501.5200, L100.0100 ####[facility] [address] [place], [address] Urea nitrogen [Mass/Vol] 21 mg/dL High 7-18 [facility] Comment on above: Performed By: #### L 500.2500, L501.5200, L100.0100 ####[facility] [address] [place], [address] CBC W/Diff, Automatedon 11-2 -2023 Absolute Lymph 0.43 X10 3/uL Low 0.83-4.51 [facility] Comment on above: Performed By: #### L 500.2500, L501.5200, L100.0100 ####[facility] [address] [place], [address] Absolute Neut 2.2 X10 3/uL Normal 2.0-7.7 [facility] Comment on above: Performed By: #### L 500.2500, L501.5200, L100.0100 ####[facility] [address] [place], [address] Basophils/100 WBC (Bld) 0.3 % Normal 0-1 [facility] Comment on above: Performed By: #### L 500.2500, L501.5200, L100.0100 ####[facility] [address] [place], [address] Eosinophils/100 WBC (Bld) 1.0 % Normal 0-5 [facility] Comment on above: Performed By: #### L 500.2500, L501.5200, L100.0100 ####[facility] [address] [place], [address] Erythrocyte distribution width (RBC) [Ratio] 15.3 % High 11.6-14.6 [facility] Comment on above: Performed By: #### L 500.2500, L501.5200, L100.0100 ####[facility] [address] [place], [address] Hematocrit (Bld) [Volume fraction] 38.9 % Low 40-54 [facility] Comment on above: Performed By: #### L 500.2500, L501.5200, L100.0100 ####[facility] [address] [place], [address] Hemoglobin (Bld) [Mass/Vol] 12.9 g/dL Low 13.0-16.5 [facility] Comment on above: Performed By: #### L 500.2500, L501.5200, L100.0100 ####[facility] [address] [place], [address] IG% 0.300 Normal 0.0-0.9 [facility] Comment on above: Result Comment: IG% - Immature Granulocytes (promyelocytes, myelocytes andmetamyelocytes) > 1% indicates that a LEFT SHIFT is Present. Performed By: #### L 500.2500, L501.5200, L100.0100 ####[facility] [address] [place], [address] Lymphocytes/100 WBC (Bld) 13.8 % Low 19-41 [facility] Comment on above: Performed By: #### L 500.2500, L501.5200, L100.0100 ####[facility] [address] [place], [address] MCH (RBC) [Entitic mass] 31.1 pg Normal 27.0-32.0 [facility] Comment on above: Performed By: #### L 500.2500, L501.5200, L100.0100 ####[facility] [address] [place], [address] MCHC (RBC) [Mass/Vol] 33.2 g/dL Normal 32-36 [facility] Comment on above: Performed By: #### L 500.2500, L501.5200, L100.0100 ####[facility] [address] [place], [address] MCV (RBC) [Entitic vol] 93.7 fL Normal 80-94 [facility] Comment on above: Performed By: #### L 500.2500, L501.5200, L100.0100 ####[facility] [address] [place], [address] Monocytes/100 WBC (Bld) 13.8 % High 0-10 [facility] Comment on above: Performed By: #### L 500.2500, L501.5200, L100.0100 ####[facility] [address] [place], [address] Neutrophils/100 WBC (Bld) 70.8 % High 47-70 [facility] Comment on above: Performed By: #### L 500.2500, L501.5200, L100.0100 ####[facility] [address] [place], [address] Nucleated RBC (Bld) [#/Vol] 0 10*3/uL Normal 0-5 [facility] Comment on above: Performed By: #### L 500.2500, L501.5200, L100.0100 ####[facility] [address] [place], [address] Platelet mean volume (Bld) [Entitic vol] 8.8 fL Normal 6.2-12.0 [facility] Comment on above: Performed By: #### L 500.2500, L501.5200, L100.0100 ####[facility] [address] [place], [address] Platelets (Bld) [#/Vol] 177 10*3/uL Normal 150-450 [facility] Comment on above: Performed By: #### L 500.2500, L501.5200, L100.0100 ####[facility] [address] [place], [address] RBC (Bld) [#/Vol] 4.15 10*6/uL Low 4.6-6.2 [facility] Comment on above: Performed By: #### L 500.2500, L501.5200, L100.0100 ####[facility] [address] [place], [address] RDW SD 51.6 fl High 35.1-43.9 [facility] Comment on above: Performed By: #### L 500.2500, L501.5200, L100.0100 ####[facility] [address] [place], [address] WBC (Bld) [#/Vol] 3.1 10*3/uL Low 4.4-11.0 [facility] Comment on above: Performed By: #### L 500.2500, L501.5200, L100.0100 ####[facility] [address] [place], [address] Magnesiumon 09-06-2024 Magnesium [Mass/Vol] 1.8 mg/dL Normal 1.6-2.6 [facility] Comment on above: Performed By: #### L 500.2500, L501.5200, L100.0100 ####[facility] [address] [place], [address] Oncology Visit Reporton 11-2 Oncology Visit Report Normal [facility] Radiation Oncology Visiton 1 11-01-2023 Radiation Oncology Visit Normal [facility] Radiation Oncology Visit Normal [facility] Basic Metabolic Profile (BMP )on 08-30-2024 BUN/CRE 22.3 RATIO High 10-20 [facility] Comment on above: Performed By: #### L 100.0100, L500.2500, L501.5200 ####[facility] [address] [place], [address] CA,Total 9.2 mg/dL Normal 8.5-10.1 [facility] Comment on above: Performed By: #### L 100.0100, L500.2500, L501.5200 ####[facility] [address] [place], [address] Chloride [Moles/Vol] 102 mmol/L Normal 98-107 [facility] Comment on above: Performed By: #### L 100.0100, L500.2500, L501.5200 ####[facility] [address] [place], [address] CO2 [Moles/Vol] 27.0 mmol/L Normal 21.0-32.0 [facility] Comment on above: Performed By: #### L 100.0100, L500.2500, L501.5200 ####[facility] [address] [place], [address] Creatinine [Mass/Vol] 0.90 mg/dL Normal 0.70-1.30 [facility] Comment on above: Result Comment: The validity of the calculated GFR GFRAA in patients over70 years has not been determined. Clinical correlation isessential. Performed By: #### L 100.0100, L500.2500, L501.5200 ####[facility] [address] [place], [address] ECRCL 78.65 ml/min Normal [facility] Comment on above: Performed By: #### L 100.0100, L500.2500, L501.5200 ####[facility] [address] [place], [address] EST GFR - AA 106 mL/min Normal >60 [facility] Comment on above: Result Comment: Afri can Andorran GFR Calc Performed By: #### L 100.0100, L500.2500, L501.5200 ####[facility] [address] [place], [address] GAP 7 Normal 5-15 [facility] Comment on above: Performed By: #### L 100.0100, L500.2500, L501.5200 ####[facility] [address] [place], [address] GFR/1.73 sq M.predicted among non-blacks MDRD (S/P/Bld) [Vol rate/Area] 88 mL/min/{1.73_m2} Normal >60 [facility] Comment on above: Result Comment: Non- GFR Calc Performed By: #### L 100.0100, L500.2500, L501.5200 ####[facility] [address] [place], [address] Glucose [Mass/Vol] 124 mg/dL High 74-106 [facility] Comment on above: Result Comment: Fast ing Glucose result from 100 to 125 mg/dLsuggests IMPAIRED HOMEOSTASIS per A.D.A. criteria. Performed By: #### L 100.0100, L500.2500, L501.5200 ####[facility] [address] [place], [address] Potassium [Moles/Vol] 3.9 mmol/L Normal 3.5-5.1 [facility] Comment on above: Performed By: #### L 100.0100, L500.2500, L501.5200 ####[facility] [address] [place], [address] Sodium [Moles/Vol] 136 mmol/L Normal 136-145 [facility] Comment on above: Performed By: #### L 100.0100, L500.2500, L501.5200 ####[facility] [address] [place], [address] Urea nitrogen [Mass/Vol] 20 mg/dL High 7-18 [facility] Comment on above: Performed By: #### L 100.0100, L500.2500, L501.5200 ####[facility] [address] [place], [address] CBC W/Diff, Automatedon 08-13 Absolute Lymph 0.31 X10 3/uL Low 0.83-4.51 [facility] Comment on above: Performed By: #### L 100.0100, L500.2500, L501.5200 ####[facility] [address] [place], [address] Absolute Neut 2.3 X10 3/uL Normal 2.0-7.7 [facility] Comment on above: Performed By: #### L 100.0100, L500.2500, L501.5200 ####[facility] [address] [place], [address] Basophils/100 WBC (Bld) 0.3 % Normal 0-1 [facility] Comment on above: Performed By: #### L 100.0100, L500.2500, L501.5200 ####[facility] [address] [place], [address] Eosinophils/100 WBC (Bld) 1.6 % Normal 0-5 [facility] Comment on above: Performed By: #### L 100.0100, L500.2500, L501.5200 ####[facility] [address] [place], [address] Erythrocyte distribution width (RBC) [Ratio] 15.2 % High 11.6-14.6 [facility] Comment on above: Performed By: #### L 100.0100, L500.2500, L501.5200 ####[facility] [address] [place], [address] Hematocrit (Bld) [Volume fraction] 40.0 % Normal 40-54 [facility] Comment on above: Performed By: #### L 100.0100, L500.2500, L501.5200 ####[facility] [address] [place], [address] Hemoglobin (Bld) [Mass/Vol] 13.6 g/dL Normal 13.0-16.5 [facility] Comment on above: Performed By: #### L 100.0100, L500.2500, L501.5200 ####[facility] [address] [place], [address] IG% 0.300 Normal 0.0-0.9 [facility] Comment on above: Result Comment: IG% - Immature Granulocytes (promyelocytes, myelocytes andmetamyelocytes) > 1% indicates that a LEFT SHIFT is Present. Performed By: #### L 100.0100, L500.2500, L501.5200 ####[facility] [address] [place], [address] Lymphocytes/100 WBC (Bld) 9.7 % Low 19-41 [facility] Comment on above: Performed By: #### L 100.0100, L500.2500, L501.5200 ####[facility] [address] [place], [address] MCH (RBC) [Entitic mass] 31.9 pg Normal 27.0-32.0 [facility] Comment on above: Performed By: #### L 100.0100, L500.2500, L501.5200 ####[facility] [address] [place], [address] MCHC (RBC) [Mass/Vol] 34.0 g/dL Normal 32-36 [facility] Comment on above: Performed By: #### L 100.0100, L500.2500, L501.5200 ####[facility] [address] [place], [address] MCV (RBC) [Entitic vol] 93.9 fL Normal 80-94 [facility] Comment on above: Performed By: #### L 100.0100, L500.2500, L501.5200 ####[facility] [address] [place], [address] Monocytes/100 WBC (Bld) 15.6 % High 0-10 [facility] Comment on above: Performed By: #### L 100.0100, L500.2500, L501.5200 ####[facility] [address] [place], [address] Neutrophils/100 WBC (Bld) 72.5 % High 47-70 [facility] Comment on above: Performed By: #### L 100.0100, L500.2500, L501.5200 ####[facility] [address] [place], [address] Nucleated RBC (Bld) [#/Vol] 0 10*3/uL Normal 0-5 [facility] Comment on above: Performed By: #### L 100.0100, L500.2500, L501.5200 ####[facility] [address] [place], [address] Platelet mean volume (Bld) [Entitic vol] 8.9 fL Normal 6.2-12.0 [facility] Comment on above: Performed By: #### L 100.0100, L500.2500, L501.5200 ####[facility] [address] [place], [address] Platelets (Bld) [#/Vol] 149 10*3/uL Low 150-450 [facility] Comment on above: Performed By: #### L 100.0100, L500.2500, L501.5200 ####[facility] [address] [place], [address] RBC (Bld) [#/Vol] 4.26 10*6/uL Low 4.6-6.2 [facility] Comment on above: Performed By: #### L 100.0100, L500.2500, L501.5200 ####[facility] [address] [place], [address] RDW SD 51.1 fl High 35.1-43.9 [facility] Comment on above: Performed By: #### L 100.0100, L500.2500, L501.5200 ####[facility] [address] [place], [address] WBC (Bld) [#/Vol] 3.2 10*3/uL Low 4.4-11.0 [facility] Comment on above: Performed By: #### L 100.0100, L500.2500, L501.5200 ####[facility] [address] [place], [address] LDHon 08-30-2024 LDH 155 U/L Normal 87-241 [facility] Comment on above: Order Comment: 1 Performed By: #### L 501.2300, L504.2610 ####[facility] [address] [place], [address] Lactate dehydrogenase (LDH) measurementOrdered By: Randy Gentile on 08-30-2024 LDH [Catalytic activity/Vol] 155 U/L 87-241 [facility] Magnesiumon 08-30-2024 Magnesium [Mass/Vol] 1.8 mg/dL Normal 1.6-2.6 [facility] Comment on above: Performed By: #### L 100.0100, L500.2500, L501.5200 ####[facility] [address] [place], [address] Oncology Visit Reporton 08-13 Oncology Visit Report Normal [facility] Phosphoruson 08-30-2024 Phosphate [Mass/Vol] 2.8 mg/dL Normal 2.5-4.9 [facility] Comment on above: Order Comment: 1 Performed By: #### L 501.2300, L504.2610 ####[facility] [address] [place], [address] Radiation Oncology Visiton 10-25-2023 Radiation Oncology Visit Normal [facility] Basic Metabolic Profile (BMP )on 08-23-2024 BUN/CRE 15.6 RATIO Normal 10-20 [facility] Comment on above: Performed By: #### L 501.5200, L100.0100, L500.2500 ####[facility] [address] [place], [address] CA,Total 9.6 mg/dL Normal 8.5-10.1 [facility] Comment on above: Performed By: #### L 501.5200, L100.0100, L500.2500 ####[facility] [address] [place], [address] Chloride [Moles/Vol] 107 mmol/L Normal 98-107 [facility] Comment on above: Performed By: #### L 501.5200, L100.0100, L500.2500 ####[facility] [address] [place], [address] CO2 [Moles/Vol] 28.0 mmol/L Normal 21.0-32.0 [facility] Comment on above: Performed By: #### L 501.5200, L100.0100, L500.2500 ####[facility] [address] [place], [address] Creatinine [Mass/Vol] 1.09 mg/dL Normal 0.70-1.30 [facility] Comment on above: Result Comment: The validity of the calculated GFR GFRAA in patients over70 years has not been determined. Clinical correlation isessential. Performed By: #### L 501.5200, L100.0100, L500.2500 ####[facility] [address] [place], [address] ECRCL 65.61 ml/min Normal [facility] Comment on above: Performed By: #### L 501.5200, L100.0100, L500.2500 ####[facility] [address] [place], [address] EST GFR - AA 85 mL/min Normal >60 [facility] Comment on above: Result Comment: Afri can Andorran GFR Calc Performed By: #### L 501.5200, L100.0100, L500.2500 ####[facility] [address] [place], [address] GAP 4 Low 5-15 [facility] Comment on above: Performed By: #### L 501.5200, L100.0100, L500.2500 ####[facility] [address] [place], [address] GFR/1.73 sq M.predicted among non-blacks MDRD (S/P/Bld) [Vol rate/Area] 70 mL/min/{1.73_m2} Normal >60 [facility] Comment on above: Result Comment: Non- GFR Calc Performed By: #### L 501.5200, L100.0100, L500.2500 ####[facility] [address] [place], [address] Glucose [Mass/Vol] 67 mg/dL Low 74-106 [facility] Comment on above: Performed By: #### L 501.5200, L100.0100, L500.2500 ####[facility] [address] [place], [address] Potassium [Moles/Vol] 3.8 mmol/L Normal 3.5-5.1 [facility] Comment on above: Performed By: #### L 501.5200, L100.0100, L500.2500 ####[facility] [address] [place], [address] Sodium [Moles/Vol] 138 mmol/L Normal 136-145 [facility] Comment on above: Performed By: #### L 501.5200, L100.0100, L500.2500 ####[facility] [address] [place], [address] Urea nitrogen [Mass/Vol] 17 mg/dL Normal 7-18 [facility] Comment on above: Performed By: #### L 501.5200, L100.0100, L500.2500 ####[facility] [address] [place], [address] CBC W/Diff, Automatedon 11 Absolute Lymph 0.61 X10 3/uL Low 0.83-4.51 [facility] Comment on above: Performed By: #### L 501.5200, L100.0100, L500.2500 ####[facility] [address] [place], [address] Absolute Neut 4.4 X10 3/uL Normal 2.0-7.7 [facility] Comment on above: Performed By: #### L 501.5200, L100.0100, L500.2500 ####[facility] [address] [place], [address] Basophils/100 WBC (Bld) 0.3 % Normal 0-1 [facility] Comment on above: Performed By: #### L 501.5200, L100.0100, L500.2500 ####[facility] [address] [place], [address] Eosinophils/100 WBC (Bld) 1.7 % Normal 0-5 [facility] Comment on above: Performed By: #### L 501.5200, L100.0100, L500.2500 ####[facility] [address] [place], [address] Erythrocyte distribution width (RBC) [Ratio] 15.1 % High 11.6-14.6 [facility] Comment on above: Performed By: #### L 501.5200, L100.0100, L500.2500 ####[facility] [address] [place], [address] Hematocrit (Bld) [Volume fraction] 41.1 % Normal 40-54 [facility] Comment on above: Performed By: #### L 501.5200, L100.0100, L500.2500 ####[facility] [address] [place], [address] Hemoglobin (Bld) [Mass/Vol] 13.8 g/dL Normal 13.0-16.5 [facility] Comment on above: Performed By: #### L 501.5200, L100.0100, L500.2500 ####[facility] [address] [place], [address] IG% 0.700 Normal 0.0-0.9 [facility] Comment on above: Result Comment: IG% - Immature Granulocytes (promyelocytes, myelocytes andmetamyelocytes) > 1% indicates that a LEFT SHIFT is Present. Performed By: #### L 501.5200, L100.0100, L500.2500 ####[facility] [address] [place], [address] Lymphocytes/100 WBC (Bld) 10.3 % Low 19-41 [facility] Comment on above: Performed By: #### L 501.5200, L100.0100, L500.2500 ####[facility] [address] [place], [address] MCH (RBC) [Entitic mass] 31.4 pg Normal 27.0-32.0 [facility] Comment on above: Performed By: #### L 501.5200, L100.0100, L500.2500 ####[facility] [address] [place], [address] MCHC (RBC) [Mass/Vol] 33.6 g/dL Normal 32-36 [facility] Comment on above: Performed By: #### L 501.5200, L100.0100, L500.2500 ####[facility] [address] [place], [address] MCV (RBC) [Entitic vol] 93.4 fL Normal 80-94 [facility] Comment on above: Performed By: #### L 501.5200, L100.0100, L500.2500 ####[facility] [address] [place], [address] Monocytes/100 WBC (Bld) 12.2 % High 0-10 [facility] Comment on above: Performed By: #### L 501.5200, L100.0100, L500.2500 ####[facility] [address] [place], [address] Neutrophils/100 WBC (Bld) 74.8 % High 47-70 [facility] Comment on above: Performed By: #### L 501.5200, L100.0100, L500.2500 ####[facility] [address] [place], [address] Nucleated RBC (Bld) [#/Vol] 0 10*3/uL Normal 0-5 [facility] Comment on above: Performed By: #### L 501.5200, L100.0100, L500.2500 ####[facility] [address] [place], [address] Platelet mean volume (Bld) [Entitic vol] 9.1 fL Normal 6.2-12.0 [facility] Comment on above: Performed By: #### L 501.5200, L100.0100, L500.2500 ####[facility] [address] [place], [address] Platelets (Bld) [#/Vol] 152 10*3/uL Normal 150-450 [facility] Comment on above: Performed By: #### L 501.5200, L100.0100, L500.2500 ####[facility] [address] [place], [address] RBC (Bld) [#/Vol] 4.40 10*6/uL Low 4.6-6.2 [facility] Comment on above: Performed By: #### L 501.5200, L100.0100, L500.2500 ####[facility] [address] [place], [address] RDW SD 51.1 fl High 35.1-43.9 [facility] Comment on above: Performed By: #### L 501.5200, L100.0100, L500.2500 ####[facility] [address] [place], [address] WBC (Bld) [#/Vol] 5.9 10*3/uL Normal 4.4-11.0 [facility] Comment on above: Performed By: #### L 501.5200, L100.0100, L500.2500 ####[facility] [address] [place], [address] Magnesiumon 08-23-2024 Magnesium [Mass/Vol] 1.9 mg/dL Normal 1.6-2.6 [facility] Comment on above: Performed By: #### L 501.5200, L100.0100, L500.2500 ####[facility] [address] [place], [address] Oncology Visit Reporton 08-13 Oncology Visit Report Normal [facility] Phosphoruson 08-23-2024 Phosphate [Mass/Vol] 2.9 mg/dL Normal 2.5-4.9 [facility] Comment on above: Performed By: #### L 501.2300 ####[facility] [address] [place], [address] Radiation Oncology Visiton 1 10-18-2023 Radiation Oncology Visit Normal [facility] Lipid Profileon 08-17-2024 Cholesterol [Mass/Vol] 146 mg/dL Normal 200 [facility] Comment on above: Order Comment: Order Date: 01/20/24Order Info: [id number] - LIPID Result Comment: <200 mg/dL Desirable 200-240 mg/dL Borderline >240 mg/dL High Risk Performed By: #### L 500.4100 ####[facility] [address] [place], [address] Cholesterol in HDL [Mass/Vol] 35 mg/dL Low [facility] Comment on above: Order Comment: Order Date: 01/20/24Order Info: [id number] - LIPID Result Comment: The drugs N-Acetylcysteine and Metamizole may falselydepress this assay. Reference Range HDL <40 mg/dL Low HDL Cholesterol HDL >or= 60 mg/dL High HDL Cholesterol Performed By: #### L 500.4100 ####[facility] [address] [place], [address] Cholesterol in LDL [Mass/Vol] 95 mg/dL Normal 0-130 [facility] Comment on above: Order Comment: Order Date: 01/20/24Order Info: [id number] - LIPID Performed By: #### L 500.4100 ####[facility] [address] [place], [address] Cholesterol in VLDL [Mass/Vol] 16 mg/dL Normal 5-40 [facility] Comment on above: Order Comment: Order Date: 01/20/24Order Info: [id number] - LIPID Performed By: #### L 500.4100 ####[facility] [address] [place], [address] Triglyceride [Mass/Vol] 79 mg/dL Normal [facility] Comment on above: Order Comment: Order Date: 01/20/24Order Info: [id number] - LIPID Result Comment: The drugs N-Acetylcysteine and Metamizole may falselydepress this assay.Serum Triglycerides Reference Interval Normal <150 mg/dL Borderline high 150 - 199 mg/dL High 200 - 499 mg/dL Very High > or = 500 mg/dL Performed By: #### L 500.4100 ####[facility] [address] [place], [address] CBC W/Diff, Automatedon 11-0 -2023 Absolute Lymph 0.84 X10 3/uL Normal 0.83-4.51 [facility] Comment on above: Order Comment: [facility] HALL [facility] ORDERED CMP, CBCD UNABLE TO DO LIPID PT NOT FASTINGDR ISCKARUS ORDERED BMP, MG, CBCD Performed By: #### L 501.5200, L100.0100 ####[facility] [address] [place], [address] Absolute Neut 3.6 X10 3/uL Normal 2.0-7.7 [facility] Comment on above: Order Comment: [facility] HALL [facility] ORDERED CMP, CBCD UNABLE TO DO LIPID PT NOT FASTINGDR ISCKARUS ORDERED BMP, MG, CBCD Performed By: #### L 501.5200, L100.0100 ####[facility] [address] [place], [address] Basophils/100 WBC (Bld) 0.4 % Normal 0-1 [facility] Comment on above: Order Comment: DR HALL [facility] ORDERED CMP, CBCD UNABLE TO DO LIPID PT NOT FASTINGDR ISCKARUS ORDERED BMP, MG, CBCD Performed By: #### L 501.5200, L100.0100 ####[facility] [address] [place], [address] Eosinophils/100 WBC (Bld) 2.3 % Normal 0-5 [facility] Comment on above: Order Comment: DR RAFAEL WHITE ORDERED CMP, CBCD UNABLE TO DO LIPID PT NOT FASTINGDR ISCKARUS ORDERED BMP, MG, CBCD Performed By: #### L 501.5200, L100.0100 ####[facility] [address] [place], [address] Erythrocyte distribution width (RBC) [Ratio] 14.6 % Normal 11.6-14.6 [facility] Comment on above: Order Comment: DR RAFAEL WHITE ORDERED CMP, CBCD UNABLE TO DO LIPID PT NOT FASTINGDR ISCKARUS ORDERED BMP, MG, CBCD Performed By: #### L 501.5200, L100.0100 ####[facility] [address] [place], [address] Hematocrit (Bld) [Volume fraction] 40.7 % Normal 40-54 [facility] Comment on above: Order Comment: DR RAFAEL WHITE ORDERED CMP, CBCD UNABLE TO DO LIPID PT NOT FASTINGDR ISCKARUS ORDERED BMP, MG, CBCD Performed By: #### L 501.5200, L100.0100 ####[facility] [address] [place], [address] Hemoglobin (Bld) [Mass/Vol] 13.5 g/dL Normal 13.0-16.5 [facility] Comment on above: Order Comment: DR RAFAEL WHITE ORDERED CMP, CBCD UNABLE TO DO LIPID PT NOT FASTINGDR ISCKARUS ORDERED BMP, MG, CBCD Performed By: #### L 501.5200, L100.0100 ####[facility] [address] [place], [address] IG% 0.400 Normal 0.0-0.9 [facility] Comment on above: Order Comment: DR RAFAEL WHITE ORDERED CMP, CBCD UNABLE TO DO LIPID PT NOT FASTINGDR ISCKARUS ORDERED BMP, MG, CBCD Result Comment: IG% - Immature Granulocytes (promyelocytes, myelocytes andmetamyelocytes) > 1% indicates that a LEFT SHIFT is Present. Performed By: #### L 501.5200, L100.0100 ####[facility] [address] [place], [address] Lymphocytes/100 WBC (Bld) 16.3 % Low 19-41 [facility] Comment on above: Order Comment: DR RAFAEL WHITE ORDERED CMP, CBCD UNABLE TO DO LIPID PT NOT FASTINGDR ISCKARUS ORDERED BMP, MG, CBCD Performed By: #### L 501.5200, L100.0100 ####[facility] [address] [place], [address] MCH (RBC) [Entitic mass] 31.0 pg Normal 27.0-32.0 [facility] Comment on above: Order Comment: DR RAFAEL WHITE ORDERED CMP, CBCD UNABLE TO DO LIPID PT NOT FASTINGDR ISCKARUS ORDERED BMP, MG, CBCD Performed By: #### L 501.5200, L100.0100 ####[facility] [address] [place], [address] MCHC (RBC) [Mass/Vol] 33.2 g/dL Normal 32-36 [facility] Comment on above: Order Comment: DR RAFAEL WHITE ORDERED CMP, CBCD UNABLE TO DO LIPID PT NOT FASTINGDR ISCKARUS ORDERED BMP, MG, CBCD Performed By: #### L 501.5200, L100.0100 ####[facility] [address] [place], [address] MCV (RBC) [Entitic vol] 93.6 fL Normal 80-94 [facility] Comment on above: Order Comment: DR RAFAEL WHITE ORDERED CMP, CBCD UNABLE TO DO LIPID PT NOT FASTINGDR ISCKARUS ORDERED BMP, MG, CBCD Performed By: #### L 501.5200, L100.0100 ####[facility] [address] [place], [address] Monocytes/100 WBC (Bld) 10.3 % High 0-10 [facility] Comment on above: Order Comment: DR RAFAEL WHITE ORDERED CMP, CBCD UNABLE TO DO LIPID PT NOT FASTINGDR ISCKARUS ORDERED BMP, MG, CBCD Performed By: #### L 501.5200, L100.0100 ####[facility] [address] [place], [address] Neutrophils/100 WBC (Bld) 70.3 % High 47-70 [facility] Comment on above: Order Comment: DR RAFAEL WHITE ORDERED CMP, CBCD UNABLE TO DO LIPID PT NOT FASTINGDR ISCKARUS ORDERED BMP, MG, CBCD Performed By: #### L 501.5200, L100.0100 ####[facility] [address] [place], [address] Nucleated RBC (Bld) [#/Vol] 0 10*3/uL Normal 0-5 [facility] Comment on above: Order Comment: DR RAFAEL WHITE ORDERED CMP, CBCD UNABLE TO DO LIPID PT NOT FASTINGDR ISCKARUS ORDERED BMP, MG, CBCD Performed By: #### L 501.5200, L100.0100 ####[facility] [address] [place], [address] Platelet mean volume (Bld) [Entitic vol] 9.4 fL Normal 6.2-12.0 [facility] Comment on above: Order Comment: DR RAFAEL WHITE ORDERED CMP, CBCD UNABLE TO DO LIPID PT NOT FASTINGDR ISCKARUS ORDERED BMP, MG, CBCD Performed By: #### L 501.5200, L100.0100 ####[facility] [address] [place], [address] Platelets (Bld) [#/Vol] 144 10*3/uL Low 150-450 [facility] Comment on above: Order Comment: DR RAFAEL WHITE ORDERED CMP, CBCD UNABLE TO DO LIPID PT NOT FASTINGDR ISCKARUS ORDERED BMP, MG, CBCD Performed By: #### L 501.5200, L100.0100 ####[facility] [address] [place], [address] RBC (Bld) [#/Vol] 4.35 10*6/uL Low 4.6-6.2 [facility] Comment on above: Order Comment: DR RAFAEL WHITE ORDERED CMP, CBCD UNABLE TO DO LIPID PT NOT FASTINGDR ISCKARUS ORDERED BMP, MG, CBCD Performed By: #### L 501.5200, L100.0100 ####[facility] [address] [place], [address] RDW SD 49.3 fl High 35.1-43.9 [facility] Comment on above: Order Comment: DR RAFAEL WHITE ORDERED CMP, CBCD UNABLE TO DO LIPID PT NOT FASTINGDR ISCKARUS ORDERED BMP, MG, CBCD Performed By: #### L 501.5200, L100.0100 ####[facility] [address] [place], [address] WBC (Bld) [#/Vol] 5.2 10*3/uL Normal 4.4-11.0 [facility] Comment on above: Order Comment: DR RAFAEL WHITE ORDERED CMP, CBCD UNABLE TO DO LIPID PT NOT FASTINGDR ISCKARUS ORDERED BMP, MG, CBCD Performed By: #### L 501.5200, L100.0100 ####[facility] [address] [place], [address] Absolute Neut Normal 2.0-7.7 [facility] Comment on above: Order Comment: Order Date: 01/20/24Order Info: [id number] - CBCD Result Comment: DUPL ICATED ORDER FOR BMP DR MAURICE ORDERED Performed By: #### L 100.0100, L500.4050 ####[facility] [address] [place], [address] HCT Normal 40-54 [facility] Comment on above: Order Comment: Order Date: 01/20/24Order Info: [id number] - CBCD Result Comment: DUPL ICATED ORDER FOR BMP DR MAURICE ORDERED Performed By: #### L 100.0100, L500.4050 ####[facility] [address] [place], [address] HGB Normal 13.0-16.5 [facility] Comment on above: Order Comment: Order Date: 01/20/24Order Info: [id number] - CBCD Result Comment: DUPL ICATED ORDER FOR BMP DR MAURICE ORDERED Performed By: #### L 100.0100, L500.4050 ####[facility] [address] [place], [address] MCH Normal 27.0-32.0 [facility] Comment on above: Order Comment: Order Date: 01/20/24Order Info: [id number] - CBCD Result Comment: DUPL ICATED ORDER FOR BMP DR MAURICE ORDERED Performed By: #### L 100.0100, L500.4050 ####[facility] [address] [place], [address] MCHC Normal 32-36 [facility] Comment on above: Order Comment: Order Date: 01/20/24Order Info: [id number] - CBCD Result Comment: DUPL ICATED ORDER FOR BMP DR MAURICE ORDERED Performed By: #### L 100.0100, L500.4050 ####[facility] [address] [place], [address] MCV Normal 80-94 [facility] Comment on above: Order Comment: Order Date: 01/20/24Order Info: [id number] - CBCD Result Comment: DUPL ICATED ORDER FOR BMP DR MAURICE ORDERED Performed By: #### L 100.0100, L500.4050 ####[facility] [address] [place], [address] NEUT% Normal 47-70 [facility] Comment on above: Order Comment: Order Date: 01/20/24Order Info: [id number] - CBCD Result Comment: DUPL ICATED ORDER FOR BMP DR MAURICE ORDERED Performed By: #### L 100.0100, L500.4050 ####[facility] [address] [place], [address] PLT Normal 150-450 [facility] Comment on above: Order Comment: Order Date: 01/20/24Order Info: [id number] - CBCD Result Comment: DUPL ICATED ORDER FOR BMP DR MAURICE ORDERED Performed By: #### L 100.0100, L500.4050 ####[facility] [address] [place], [address] RBC Normal 4.6-6.2 [facility] Comment on above: Order Comment: Order Date: 01/20/24Order Info: [id number] - CBCD Result Comment: DUPL ICATED ORDER FOR BMP DR MAURICE ORDERED Performed By: #### L 100.0100, L500.4050 ####[facility] [address] [place], [address] RDW CV Normal 11.6-14.6 [facility] Comment on above: Order Comment: Order Date: 01/20/24Order Info: [id number] - CBCD Result Comment: DUPL ICATED ORDER FOR BMP DR MAURICE ORDERED Performed By: #### L 100.0100, L500.4050 ####[facility] [address] [place], [address] RDW SD Normal 35.1-43.9 [facility] Comment on above: Order Comment: Order Date: 01/20/24Order Info: [id number] - CBCD Result Comment: DUPL ICATED ORDER FOR BMP DR MAURICE ORDERED Performed By: #### L 100.0100, L500.4050 ####[facility] [address] [place], [address] WBC Normal 4.4-11.0 [facility] Comment on above: Order Comment: Order Date: 01/20/24Order Info: [id number] - CBCD Result Comment: DUPL ICATED ORDER FOR BMP DR MAURICE ORDERED Performed By: #### L 100.0100, L500.4050 ####[facility] [address] [place], [place], [address] Comprehensive Metabolic Prof sharon 08-16-2024 Albumin [Mass/Vol] 3.7 g/dL Normal 3.2-5.0 [facility] Comment on above: Order Comment: DR RAFAEL WHITE ORDERED CMP, CBCD UNABLE TO DO LIPID PT NOT FASTINGDR ISCKARUS ORDERED BMP, MG, CBCDOrder Date: 01/20/24Order Info: [id number] - CMP Performed By: #### L 100.0100, L500.4050 ####[facility] [address] [place], [place], [address] Albumin/Globulin [Mass ratio] 1.0 {ratio} Normal 0.9-2.4 [facility] Comment on above: Order Comment: DR RAFAEL WHITE ORDERED CMP, CBCD UNABLE TO DO LIPID PT NOT FASTINGDR ISCKARUS ORDERED BMP, MG, CBCDOrder Date: 01/20/24Order Info: [id number] - CMP Performed By: #### L 100.0100, L500.4050 ####[facility] [address] [place], [place], [address] ALK P 75 U/L Normal 45-117 [facility] Comment on above: Order Comment: DR RAFAEL WHITE ORDERED CMP, CBCD UNABLE TO DO LIPID PT NOT FASTINGDR ISCKARUS ORDERED BMP, MG, CBCDOrder Date: 01/20/24Order Info: [id number] - CMP Performed By: #### L 100.0100, L500.4050 ####[facility] [address] [place], [address] ALT [Catalytic activity/Vol] 24 U/L Normal 16-61 [facility] Comment on above: Order Comment: DR RAFAEL WHITE ORDERED CMP, CBCD UNABLE TO DO LIPID PT NOT FASTINGDR ISCKARUS ORDERED BMP, MG, CBCDOrder Date: 01/20/24Order Info: [id number] - CMP Performed By: #### L 100.0100, L500.4050 ####[facility] [address] [place], [address] AST [Catalytic activity/Vol] 22 U/L Normal 15-37 [facility] Comment on above: Order Comment: DR HALL ITH ORDERED CMP, CBCD UNABLE TO DO LIPID PT NOT FASTINGDR ISCKARUS ORDERED BMP, MG, CBCDOrder Date: 01/20/24Order Info: [id number]- - CMP Performed By: #### L 100.0100, L500.4050 ####[facility] [address] [place], [address] Bilirubin [Mass/Vol] 1.50 mg/dL High 0.20-1.00 [facility] Comment on above: Order Comment: DR HALL ITH ORDERED CMP, CBCD UNABLE TO DO LIPID PT NOT FASTINGDR ISCKARUS ORDERED BMP, MG, CBCDOrder Date: 01/20/24Order Info: [id number] - CMP Result Comment: For patients on eltrombopag therapy, use of Dimension [place] TBIL is not recommended. Performed By: #### L 100.0100, L500.4050 ####[facility] [address] [place], [address] BUN/CRE 19.2 RATIO Normal 10-20 [facility] Comment on above: Order Comment: DR HALL ITH ORDERED CMP, CBCD UNABLE TO DO LIPID PT NOT FASTINGDR ISCKARUS ORDERED BMP, MG, CBCDOrder Date: 01/20/24Order Info: [id number] - CMP Performed By: #### L 100.0100, L500.4050 ####[facility] [address] [place], [address] CA,Total 9.2 mg/dL Normal 8.5-10.1 [facility] Comment on above: Order Comment: DR HALL ITH ORDERED CMP, CBCD UNABLE TO DO LIPID PT NOT FASTINGDR ISCKARUS ORDERED BMP, MG, CBCDOrder Date: 01/20/24Order Info: [id number] - CMP Performed By: #### L 100.0100, L500.4050 ####[facility] [address] [place], [address] Chloride [Moles/Vol] 104 mmol/L Normal 98-107 [facility] Comment on above: Order Comment: DR HALL ITH ORDERED CMP, CBCD UNABLE TO DO LIPID PT NOT FASTINGDR ISCKARUS ORDERED BMP, MG, CBCDOrder Date: 01/20/24Order Info: 0786-1 - CMP Performed By: #### L 100.0100, L500.4050 ####[facility] [id number] [place], [address] CO2 [Moles/Vol] 25.0 mmol/L Normal 21.0-32.0 [facility] Comment on above: Order Comment: DR HALL ITH ORDERED CMP, CBCD UNABLE TO DO LIPID PT NOT FASTINGDR ISCKARUS ORDERED BMP, MG, CBCDOrder Date: 01/20/24Order Info: 0786-1 - CMP Performed By: #### L 100.0100, L500.4050 ####[facility] [id number] [place], [address] Creatinine [Mass/Vol] 1.04 mg/dL Normal 0.70-1.30 [facility] Comment on above: Order Comment: DR RAFAEL WHITE ORDERED CMP, CBCD UNABLE TO DO LIPID PT NOT FASTINGDR ISCKARUS ORDERED BMP, MG, CBCDOrder Date: 01/20/24Order Info: 0786-1 - CMP Result Comment: The validity of the calculated GFR GFRAA in patients over70 years has not been determined. Clinical correlation isessential. Performed By: #### L 100.0100, L500.4050 ####[facility] [address] [place], [address] ECRCL 70.65 ml/min Normal [facility] Comment on above: Order Comment: DR HALL ITH ORDERED CMP, CBCD UNABLE TO DO LIPID PT NOT FASTINGDR ISCKARUS ORDERED BMP, MG, CBCDOrder Date: 01/20/24Order Info: 785-1 - CMP Performed By: #### L 100.0100, L500.4050 ####[facility] [address] [place], [address] EST GFR - AA 89 mL/min Normal >60 [facility] Comment on above: Order Comment: DR HALL ITH ORDERED CMP, CBCD UNABLE TO DO LIPID PT NOT FASTINGDR ISCKARUS ORDERED BMP, MG, CBCDOrder Date: 01/20/24Order Info: 785-1 - CMP Result Comment: Afri can Andorran GFR Calc Performed By: #### L 100.0100, L500.4050 ####[facility] [address] [place], [address] GAP 7 Normal 5-15 [facility] Comment on above: Order Comment: DR HALL ITH ORDERED CMP, CBCD UNABLE TO DO LIPID PT NOT FASTINGDR ISCKARUS ORDERED BMP, MG, CBCDOrder Date: 01/20/24Order Info: 785- - CMP Performed By: #### L 100.0100, L500.4050 ####[facility] [address] [place], [address] GFR/1.73 sq M.predicted among non-blacks MDRD (S/P/Bld) [Vol rate/Area] 74 mL/min/{1.73_m2} Normal >60 [facility] Comment on above: Order Comment: DR HALL ITH ORDERED CMP, CBCD UNABLE TO DO LIPID PT NOT FASTINGDR ISCKARUS ORDERED BMP, MG, CBCDOrder Date: 01/20/24Order Info: 785-1 - CMP Result Comment: Non- GFR Calc Performed By: #### L 100.0100, L500.4050 ####[facility] [address] [place], [address] Globulin (S) [Mass/Vol] 3.6 g/dL Normal 2.2-4.2 [facility] Comment on above: Order Comment: DR SM ITH ORDERED CMP, CBCD UNABLE TO DO LIPID PT NOT FASTINGDR ISCKARUS ORDERED BMP, MG, CBCDOrder Date: 01/20/24Order Info: 0786- - CMP Performed By: #### L 100.0100, L500.4050 ####[facility] [address] [place], [address] Glucose [Mass/Vol] 93 mg/dL Normal 74-106 [facility] Comment on above: Order Comment: DR HALL ITH ORDERED CMP, CBCD UNABLE TO DO LIPID PT NOT FASTINGDR ISCKARUS ORDERED BMP, MG, CBCDOrder Date: 01/20/24Order Info: 0786 - CMP Performed By: #### L 100.0100, L500.4050 ####[facility] [address] [place], [address] Potassium [Moles/Vol] 4.1 mmol/L Normal 3.5-5.1 [facility] Comment on above: Order Comment: DR HALL ITH ORDERED CMP, CBCD UNABLE TO DO LIPID PT NOT FASTINGDR ISCKARUS ORDERED BMP, MG, CBCDOrder Date: 01/20/24Order Info: 0786- - CMP Performed By: #### L 100.0100, L500.4050 ####[facility] [address] [place], [address] Sodium [Moles/Vol] 137 mmol/L Normal 136-145 [facility] Comment on above: Order Comment: DR HALL ITH ORDERED CMP, CBCD UNABLE TO DO LIPID PT NOT FASTINGDR ISCKARUS ORDERED BMP, MG, CBCDOrder Date: 01/20/24Order Info: 0786- - CMP Performed By: #### L 100.0100, L500.4050 ####[facility] [address] [place], [address] T PROT 7.3 g/dL Normal 6.4-8.2 [facility] Comment on above: Order Comment: DR HALL ITH ORDERED CMP, CBCD UNABLE TO DO LIPID PT NOT FASTINGDR ISCKARUS ORDERED BMP, MG, CBCDOrder Date: 01/20/24Order Info: 0786-1 - CMP Performed By: #### L 100.0100, L500.4050 ####[facility] [address] [place], [address] Urea nitrogen [Mass/Vol] 20 mg/dL High 7-18 [facility] Comment on above: Order Comment: DR RAFAEL WHITE ORDERED CMP, CBCD UNABLE TO DO LIPID PT NOT FASTINGDR ISCKARUS ORDERED BMP, MG, CBCDOrder Date: 01/20/24Order Info: 0786-1 - CMP Performed By: #### L 100.0100, L500.4050 ####[facility] [address] [place], [address] Magnesiumon 08-16-2024 Magnesium [Mass/Vol] 2.0 mg/dL Normal 1.6-2.6 [facility] Comment on above: Order Comment: DR RAFAEL WHITE ORDERED CMP, CBCD UNABLE TO DO LIPID PT NOT FASTINGDR ISCKARUS ORDERED BMP, MG, CBCD Performed By: #### L 501.5200, L100.0100 ####[facility] [address] [place], [address] Oncology Visit Reporton 11-0 Oncology Visit Report Normal [facility] Radiation Oncology Visiton 1 Radiation Oncology Visit Normal [facility] Basic Metabolic Profile (BMP )on 08-09-2024 BUN/CRE 13.4 RATIO Normal 10-20 [facility] Comment on above: Performed By: #### L 501.5200, L100.0100, L500.2500 ####[facility] [address] [place], [address] CA,Total 9.0 mg/dL Normal 8.5-10.1 [facility] Comment on above: Performed By: #### L 501.5200, L100.0100, L500.2500 ####[facility] [address] [place], [address] Chloride [Moles/Vol] 103 mmol/L Normal 98-107 [facility] Comment on above: Performed By: #### L 501.5200, L100.0100, L500.2500 ####[facility] [address] [place], [address] CO2 [Moles/Vol] 25.0 mmol/L Normal 21.0-32.0 [facility] Comment on above: Performed By: #### L 501.5200, L100.0100, L500.2500 ####[facility] [address] [place], [address] Creatinine [Mass/Vol] 1.19 mg/dL Normal 0.70-1.30 [facility] Comment on above: Result Comment: The validity of the calculated GFR GFRAA in patients over70 years has not been determined. Clinical correlation isessential. Performed By: #### L 501.5200, L100.0100, L500.2500 ####[facility] [address] [place], [address] ECRCL 62.46 ml/min Normal [facility] Comment on above: Performed By: #### L 501.5200, L100.0100, L500.2500 ####[facility] [address] [place], [address] EST GFR - AA 77 mL/min Normal >60 [facility] Comment on above: Result Comment: Afri can Andorran GFR Calc Performed By: #### L 501.5200, L100.0100, L500.2500 ####[facility] [address] [place], [address] GAP 9 Normal 5-15 [facility] Comment on above: Performed By: #### L 501.5200, L100.0100, L500.2500 ####[facility] [address] [place], [address] GFR/1.73 sq M.predicted among non-blacks MDRD (S/P/Bld) [Vol rate/Area] 63 mL/min/{1.73_m2} Normal >60 [facility] Comment on above: Result Comment: Non- GFR Calc Performed By: #### L 501.5200, L100.0100, L500.2500 ####[facility] [address] [place], [address] Glucose [Mass/Vol] 96 mg/dL Normal 74-106 [facility] Comment on above: Performed By: #### L 501.5200, L100.0100, L500.2500 ####[facility] [address] [place], [address] Potassium [Moles/Vol] 4.3 mmol/L Normal 3.5-5.1 [facility] Comment on above: Performed By: #### L 501.5200, L100.0100, L500.2500 ####[facility] [address] [place], [address] Sodium [Moles/Vol] 137 mmol/L Normal 136-145 [facility] Comment on above: Performed By: #### L 501.5200, L100.0100, L500.2500 ####[facility] [address] [place], [address] Urea nitrogen [Mass/Vol] 16 mg/dL Normal 7-18 [facility] Comment on above: Performed By: #### L 501.5200, L100.0100, L500.2500 ####[facility] [address] [place], [address] CBC W/Diff, Automatedon 10- Absolute Lymph 1.04 X10 3/uL Normal 0.83-4.51 [facility] Comment on above: Performed By: #### L 501.5200, L100.0100, L500.2500 ####[facility] [address] [place], [address] Absolute Neut 5.0 X10 3/uL Normal 2.0-7.7 [facility] Comment on above: Performed By: #### L 501.5200, L100.0100, L500.2500 ####[facility] [address] [place], [address] Basophils/100 WBC (Bld) 0.4 % Normal 0-1 [facility] Comment on above: Performed By: #### L 501.5200, L100.0100, L500.2500 ####[facility] [address] [place], [address] Eosinophils/100 WBC (Bld) 2.1 % Normal 0-5 [facility] Comment on above: Performed By: #### L 501.5200, L100.0100, L500.2500 ####[facility] [address] [place], [address] Erythrocyte distribution width (RBC) [Ratio] 14.6 % Normal 11.6-14.6 [facility] Comment on above: Performed By: #### L 501.5200, L100.0100, L500.2500 ####[facility] [address] [place], [address] Hematocrit (Bld) [Volume fraction] 41.1 % Normal 40-54 [facility] Comment on above: Performed By: #### L 501.5200, L100.0100, L500.2500 ####[facility] [address] [place], [address] Hemoglobin (Bld) [Mass/Vol] 13.8 g/dL Normal 13.0-16.5 [facility] Comment on above: Performed By: #### L 501.5200, L100.0100, L500.2500 ####[facility] [address] [place], [address] IG% 0.300 Normal 0.0-0.9 [facility] Comment on above: Result Comment: IG% - Immature Granulocytes (promyelocytes, myelocytes andmetamyelocytes) > 1% indicates that a LEFT SHIFT is Present. Performed By: #### L 501.5200, L100.0100, L500.2500 ####[facility] [address] [place], [address] Lymphocytes/100 WBC (Bld) 15.3 % Low 19-41 [facility] Comment on above: Performed By: #### L 501.5200, L100.0100, L500.2500 ####[facility] [address] [place], [address] MCH (RBC) [Entitic mass] 31.4 pg Normal 27.0-32.0 [facility] Comment on above: Performed By: #### L 501.5200, L100.0100, L500.2500 ####[facility] [address] [place], [address] MCHC (RBC) [Mass/Vol] 33.6 g/dL Normal 32-36 [facility] Comment on above: Performed By: #### L 501.5200, L100.0100, L500.2500 ####[facility] [address] [place], [address] MCV (RBC) [Entitic vol] 93.4 fL Normal 80-94 [facility] Comment on above: Performed By: #### L 501.5200, L100.0100, L500.2500 ####[facility] [address] [place], [address] Monocytes/100 WBC (Bld) 7.9 % Normal 0-10 [facility] Comment on above: Performed By: #### L 501.5200, L100.0100, L500.2500 ####[facility] [address] [place], [address] Neutrophils/100 WBC (Bld) 74.0 % High 47-70 [facility] Comment on above: Performed By: #### L 501.5200, L100.0100, L500.2500 ####[facility] [address] [place], [address] Nucleated RBC (Bld) [#/Vol] 0 10*3/uL Normal 0-5 [facility] Comment on above: Performed By: #### L 501.5200, L100.0100, L500.2500 ####[facility] [address] [place], [address] Platelet mean volume (Bld) [Entitic vol] 9.6 fL Normal 6.2-12.0 [facility] Comment on above: Performed By: #### L 501.5200, L100.0100, L500.2500 ####[facility] [address] [place], [address] Platelets (Bld) [#/Vol] 165 10*3/uL Normal 150-450 [facility] Comment on above: Performed By: #### L 501.5200, L100.0100, L500.2500 ####[facility] [address] [place], [address] RBC (Bld) [#/Vol] 4.40 10*6/uL Low 4.6-6.2 [facility] Comment on above: Performed By: #### L 501.5200, L100.0100, L500.2500 ####[facility] [address] [place], [address] RDW SD 49.4 fl High 35.1-43.9 [facility] Comment on above: Performed By: #### L 501.5200, L100.0100, L500.2500 ####[facility] [address] [place], [address] WBC (Bld) [#/Vol] 6.8 10*3/uL Normal 4.4-11.0 [facility] Comment on above: Performed By: #### L 501.5200, L100.0100, L500.2500 ####[facility] [address] [place], [address] Magnesiumon 08-09-2024 Magnesium [Mass/Vol] 2.0 mg/dL Normal 1.6-2.6 [facility] Comment on above: Performed By: #### L 501.5200, L100.0100, L500.2500 ####[facility] [address] [place], [address] Oncology Visit Reporton - Oncology Visit Report Normal [facility] Radiation Oncology Visiton 1 Radiation Oncology Visit Normal [facility] Basic Metabolic Profile (BMP )on 08-02-2024 BUN/CRE 22.6 RATIO High 08-01 [facility] Comment on above: Performed By: #### L 501.5200, L100.0100, L500.2500 ####[facility] [address] [place], [address] CA,Total 9.3 mg/dL Normal 8.5-10.1 [facility] Comment on above: Performed By: #### L 501.5200, L100.0100, L500.2500 ####[facility] [address] [place], [address] Chloride [Moles/Vol] 102 mmol/L Normal 98-107 [facility] Comment on above: Performed By: #### L 501.5200, L100.0100, L500.2500 ####[facility] [address] [place], [address] CO2 [Moles/Vol] 25.0 mmol/L Normal 21.0-32.0 [facility] Comment on above: Performed By: #### L 501.5200, L100.0100, L500.2500 ####[facility] [address] [place], [address] Creatinine [Mass/Vol] 0.97 mg/dL Normal 0.70-1.30 [facility] Comment on above: Result Comment: The validity of the calculated GFR GFRAA in patients over70 years has not been determined. Clinical correlation isessential. Performed By: #### L 501.5200, L100.0100, L500.2500 ####[facility] [address] [place], [address] ECRCL 76.59 ml/min Normal [facility] Comment on above: Performed By: #### L 501.5200, L100.0100, L500.2500 ####[facility] [address] [place], [address] EST GFR - AA 96 mL/min Normal >60 [facility] Comment on above: Result Comment: Afri can Andorran GFR Calc Performed By: #### L 501.5200, L100.0100, L500.2500 ####[facility] [address] [place], [address] GAP 9 Normal 5-15 [facility] Comment on above: Performed By: #### L 501.5200, L100.0100, L500.2500 ####[facility] [address] [place], [address] GFR/1.73 sq M.predicted among non-blacks MDRD (S/P/Bld) [Vol rate/Area] 80 mL/min/{1.73_m2} Normal >60 [facility] Comment on above: Result Comment: Non- GFR Calc Performed By: #### L 501.5200, L100.0100, L500.2500 ####[facility] [address] [place], [address] Glucose [Mass/Vol] 121 mg/dL High 74-106 [facility] Comment on above: Result Comment: Fast ing Glucose result from 100 to 125 mg/dLsuggests IMPAIRED HOMEOSTASIS per A.D.A. criteria. Performed By: #### L 501.5200, L100.0100, L500.2500 ####[facility] [address] [place], [address] Potassium [Moles/Vol] 4.3 mmol/L Normal 3.5-5.1 [facility] Comment on above: Performed By: #### L 501.5200, L100.0100, L500.2500 ####[facility] [address] [place], [address] Sodium [Moles/Vol] 136 mmol/L Normal 136-145 [facility] Comment on above: Performed By: #### L 501.5200, L100.0100, L500.2500 ####[facility] [address] [place], [address] Urea nitrogen [Mass/Vol] 22 mg/dL High 7-18 [facility] Comment on above: Performed By: #### L 501.5200, L100.0100, L500.2500 ####[facility] [address] [place], [address] CBC W/Diff, Automatedon 10-2 Absolute Lymph 1.11 X10 3/uL Normal 0.83-4.51 [facility] Comment on above: Performed By: #### L 501.5200, L100.0100, L500.2500 ####[facility] [address] [place], [address] Absolute Neut 7.2 X10 3/uL Normal 2.0-7.7 [facility] Comment on above: Performed By: #### L 501.5200, L100.0100, L500.2500 ####[facility] [address] [place], [address] Basophils/100 WBC (Bld) 0.2 % Normal 0-1 [facility] Comment on above: Performed By: #### L 501.5200, L100.0100, L500.2500 ####[facility] [address] [place], [address] Eosinophils/100 WBC (Bld) 1.1 % Normal 0-5 [facility] Comment on above: Performed By: #### L 501.5200, L100.0100, L500.2500 ####[facility] [address] [place], [address] Erythrocyte distribution width (RBC) [Ratio] 14.8 % High 11.6-14.6 [facility] Comment on above: Performed By: #### L 501.5200, L100.0100, L500.2500 ####[facility] [address] [place], [address] Hematocrit (Bld) [Volume fraction] 40.2 % Normal 40-54 [facility] Comment on above: Performed By: #### L 501.5200, L100.0100, L500.2500 ####[facility] [address] [place], [address] Hemoglobin (Bld) [Mass/Vol] 13.3 g/dL Normal 13.0-16.5 [facility] Comment on above: Performed By: #### L 501.5200, L100.0100, L500.2500 ####[facility] [address] [place], [address] IG% 0.400 Normal 0.0-0.9 [facility] Comment on above: Result Comment: IG% - Immature Granulocytes (promyelocytes, myelocytes andmetamyelocytes) > 1% indicates that a LEFT SHIFT is Present. Performed By: #### L 501.5200, L100.0100, L500.2500 ####[facility] [address] [place], [address] Lymphocytes/100 WBC (Bld) 12.0 % Low 19-41 [facility] Comment on above: Performed By: #### L 501.5200, L100.0100, L500.2500 ####[facility] [address] [place], [address] MCH (RBC) [Entitic mass] 30.6 pg Normal 27.0-32.0 [facility] Comment on above: Performed By: #### L 501.5200, L100.0100, L500.2500 ####[facility] [address] [place], [address] MCHC (RBC) [Mass/Vol] 33.1 g/dL Normal 32-36 [facility] Comment on above: Performed By: #### L 501.5200, L100.0100, L500.2500 ####[facility] [address] [place], [address] MCV (RBC) [Entitic vol] 92.6 fL Normal 80-94 [facility] Comment on above: Performed By: #### L 501.5200, L100.0100, L500.2500 ####[facility] [address] [place], [address] Monocytes/100 WBC (Bld) 8.8 % Normal 0-10 [facility] Comment on above: Performed By: #### L 501.5200, L100.0100, L500.2500 ####[facility] [address] [place], [address] Neutrophils/100 WBC (Bld) 77.5 % High 47-70 [facility] Comment on above: Performed By: #### L 501.5200, L100.0100, L500.2500 ####[facility] [address] [place], [address] Nucleated RBC (Bld) [#/Vol] 0 10*3/uL Normal 0-5 [facility] Comment on above: Performed By: #### L 501.5200, L100.0100, L500.2500 ####[facility] [address] [place], [address] Platelet mean volume (Bld) [Entitic vol] 9.8 fL Normal 6.2-12.0 [facility] Comment on above: Performed By: #### L 501.5200, L100.0100, L500.2500 ####[facility] [address] [place], [address] Platelets (Bld) [#/Vol] 158 10*3/uL Normal 150-450 [facility] Comment on above: Performed By: #### L 501.5200, L100.0100, L500.2500 ####[facility] [address] [place], [address] RBC (Bld) [#/Vol] 4.34 10*6/uL Low 4.6-6.2 [facility] Comment on above: Performed By: #### L 501.5200, L100.0100, L500.2500 ####[facility] [address] [place], [address] RDW SD 48.8 fl High 35.1-43.9 [facility] Comment on above: Performed By: #### L 501.5200, L100.0100, L500.2500 ####[facility] [address] [place], [address] WBC (Bld) [#/Vol] 9.3 10*3/uL Normal 4.4-11.0 [facility] Comment on above: Performed By: #### L 501.5200, L100.0100, L500.2500 ####[facility] [address] [place], [address] Magnesiumon 08-02-2024 Magnesium [Mass/Vol] 2.1 mg/dL Normal 1.6-2.6 [facility] Comment on above: Performed By: #### L 501.5200, L100.0100, L500.2500 ####[facility] [address] [place], [address] Oncology Visit Reporton 07-14 Oncology Visit Report Normal [facility] Radiation Oncology Visiton 1 Radiation Oncology Visit Normal [facility] Basic Metabolic Profile (BMP )on 07-26-2024 BUN/CRE 19.3 RATIO Normal 08-01 [facility] Comment on above: Performed By: #### L 501.2300, L501.5200, L500.2500 ####[facility] [address] [place], [address] CA,Total 9.5 mg/dL Normal 8.5-10.1 [facility] Comment on above: Performed By: #### L 501.2300, L501.5200, L500.2500 ####[facility] [address] [place], [address] Chloride [Moles/Vol] 106 mmol/L Normal 98-107 [facility] Comment on above: Performed By: #### L 501.2300, L501.5200, L500.2500 ####[facility] [address] [place], [address] CO2 [Moles/Vol] 25.0 mmol/L Normal 21.0-32.0 [facility] Comment on above: Performed By: #### L 501.2300, L501.5200, L500.2500 ####[facility] [address] [place], [address] Creatinine [Mass/Vol] 1.14 mg/dL Normal 0.70-1.30 [facility] Comment on above: Result Comment: The validity of the calculated GFR GFRAA in patients over70 years has not been determined. Clinical correlation isessential. Performed By: #### L 501.2300, L501.5200, L500.2500 ####[facility] [address] [place], [address] ECRCL 66.19 ml/min Normal [facility] Comment on above: Performed By: #### L 501.2300, L501.5200, L500.2500 ####[facility] [address] [place], [address] EST GFR - AA 80 mL/min Normal >60 [facility] Comment on above: Result Comment: Afri can Andorran GFR Calc Performed By: #### L 501.2300, L501.5200, L500.2500 ####[facility] [address] [place], [address] GAP 7 Normal 5-15 [facility] Comment on above: Performed By: #### L 501.2300, L501.5200, L500.2500 ####[facility] [address] [place], [address] GFR/1.73 sq M.predicted among non-blacks MDRD (S/P/Bld) [Vol rate/Area] 67 mL/min/{1.73_m2} Normal >60 [facility] Comment on above: Result Comment: Non- GFR Calc Performed By: #### L 501.2300, L501.5200, L500.2500 ####[facility] [address] [place], [address] Glucose [Mass/Vol] 97 mg/dL Normal 74-106 [facility] Comment on above: Performed By: #### L 501.2300, L501.5200, L500.2500 ####[facility] [address] [place], [address] Potassium [Moles/Vol] 4.4 mmol/L Normal 3.5-5.1 [facility] Comment on above: Performed By: #### L 501.2300, L501.5200, L500.2500 ####[facility] [address] [place], [address] Sodium [Moles/Vol] 138 mmol/L Normal 136-145 [facility] Comment on above: Performed By: #### L 501.2300, L501.5200, L500.2500 ####[facility] [address] [place], [address] Urea nitrogen [Mass/Vol] 22 mg/dL High 7-18 [facility] Comment on above: Performed By: #### L 501.2300, L501.5200, L500.2500 ####[facility] [address] [place], [address] BUN Normal 7-18 [facility] Comment on above: Result Comment: TEST S COMPLETED ON SPECIMAN C152 Performed By: #### L 500.2500, L100.0100 ####[facility] [address] [place], [address] BUN/CRE Normal 10-20 [facility] Comment on above: Result Comment: TEST S COMPLETED ON SPECIMAN C152 Performed By: #### L 500.2500, L100.0100 ####[facility] [address] [place], [address] CA,Total Normal 8.5-10.1 [facility] Comment on above: Result Comment: TEST S COMPLETED ON SPECIMAN C152 Performed By: #### L 500.2500, L100.0100 ####[facility] [address] [place], [address] CL Normal 98-107 [facility] Comment on above: Result Comment: TEST S COMPLETED ON SPECIMAN C152 Performed By: #### L 500.2500, L100.0100 ####[facility] [address] [place], [address] CO2 Normal 21.0-32.0 [facility] Comment on above: Result Comment: TEST S COMPLETED ON SPECIMAN C152 Performed By: #### L 500.2500, L100.0100 ####[facility] [address] [place], [address] CREAT,SERUM Normal 0.70-1.30 [facility] Comment on above: Result Comment: TEST S COMPLETED ON SPECIMAN C152 Performed By: #### L 500.2500, L100.0100 ####[facility] [address] [place], [address] EST GFR Normal >60 [facility] Comment on above: Result Comment: TEST S COMPLETED ON SPECIMAN C152 Performed By: #### L 500.2500, L100.0100 ####[facility] [address] [place], [address] EST GFR - AA Normal >60 [facility] Comment on above: Result Comment: TEST S COMPLETED ON SPECIMAN C152 Performed By: #### L 500.2500, L100.0100 ####[facility] [address] [place], [address] GAP Normal 5-15 [facility] Comment on above: Result Comment: TEST S COMPLETED ON SPECIMAN C152 Performed By: #### L 500.2500, L100.0100 ####[facility] [address] [place], [address] GLU Normal 74-106 [facility] Comment on above: Result Comment: TEST S COMPLETED ON SPECIMAN C152 Performed By: #### L 500.2500, L100.0100 ####[facility] [address] [place], [address] Potassium Normal 3.5-5.1 [facility] Comment on above: Result Comment: TEST S COMPLETED ON SPECIMAN C152 Performed By: #### L 500.2500, L100.0100 ####[facility] [address] [place], [address] Basic Metabolic Profile (BMP) Normal 136-145 [facility] Comment on above: Result Comment: TEST S COMPLETED ON SPECIMAN C152 Performed By: #### L 500.2500, L100.0100 ####[facility] [address] [place], [address] CBC W/Diff, Automatedon 10-1 Absolute Lymph 1.89 X10 3/uL Normal 0.83-4.51 [facility] Comment on above: Performed By: #### L 500.2500, L100.0100 ####[facility] [address] [place], [address] Absolute Neut 4.8 X10 3/uL Normal 2.0-7.7 [facility] Comment on above: Performed By: #### L 500.2500, L100.0100 ####[facility] [address] [place], [address] Basophils/100 WBC (Bld) 0.3 % Normal 0-1 [facility] Comment on above: Performed By: #### L 500.2500, L100.0100 ####[facility] [address] [place], [address] Eosinophils/100 WBC (Bld) 2.4 % Normal 0-5 [facility] Comment on above: Performed By: #### L 500.2500, L100.0100 ####[facility] [address] [place], [address] Erythrocyte distribution width (RBC) [Ratio] 14.6 % Normal 11.6-14.6 [facility] Comment on above: Performed By: #### L 500.2500, L100.0100 ####[facility] [address] [place], [address] Hematocrit (Bld) [Volume fraction] 42.2 % Normal 40-54 [facility] Comment on above: Performed By: #### L 500.2500, L100.0100 ####[facility] [address] [place], [address] Hemoglobin (Bld) [Mass/Vol] 13.6 g/dL Normal 13.0-16.5 [facility] Comment on above: Performed By: #### L 500.2500, L100.0100 ####[facility] [address] [place], [address] IG% 0.500 Normal 0.0-0.9 [facility] Comment on above: Result Comment: IG% - Immature Granulocytes (promyelocytes, myelocytes andmetamyelocytes) > 1% indicates that a LEFT SHIFT is Present. Performed By: #### L 500.2500, L100.0100 ####[facility] [address] [place], [address] Lymphocytes/100 WBC (Bld) 25.3 % Normal 19-41 [facility] Comment on above: Performed By: #### L 500.2500, L100.0100 ####[facility] [address] [place], [address] MCH (RBC) [Entitic mass] 30.5 pg Normal 27.0-32.0 [facility] Comment on above: Performed By: #### L 500.2500, L100.0100 ####[facility] [address] [place], [address] MCHC (RBC) [Mass/Vol] 32.2 g/dL Normal 32-36 [facility] Comment on above: Performed By: #### L 500.2500, L100.0100 ####[facility] [address] [place], [address] MCV (RBC) [Entitic vol] 94.6 fL High 80-94 [facility] Comment on above: Performed By: #### L 500.2500, L100.0100 ####[facility] [address] [place], [address] Monocytes/100 WBC (Bld) 8.0 % Normal 0-10 [facility] Comment on above: Performed By: #### L 500.2500, L100.0100 ####[facility] [address] [place], [address] Neutrophils/100 WBC (Bld) 63.5 % Normal 47-70 [facility] Comment on above: Performed By: #### L 500.2500, L100.0100 ####[facility] [address] [place], [address] Nucleated RBC (Bld) [#/Vol] 0 10*3/uL Normal 0-5 [facility] Comment on above: Performed By: #### L 500.2500, L100.0100 ####[facility] [address] [place], [address] Platelet mean volume (Bld) [Entitic vol] 9.8 fL Normal 6.2-12.0 [facility] Comment on above: Performed By: #### L 500.2500, L100.0100 ####[facility] [address] [place], [address] Platelets (Bld) [#/Vol] 216 10*3/uL Normal 150-450 [facility] Comment on above: Performed By: #### L 500.2500, L100.0100 ####[facility] [address] [place], [address] RBC (Bld) [#/Vol] 4.46 10*6/uL Low 4.6-6.2 [facility] Comment on above: Performed By: #### L 500.2500, L100.0100 ####[facility] [address] [place], [address] RDW SD 49.8 fl High 35.1-43.9 [facility] Comment on above: Performed By: #### L 500.2500, L100.0100 ####[facility] [address] [place], [address] WBC (Bld) [#/Vol] 7.5 10*3/uL Normal 4.4-11.0 [facility] Comment on above: Performed By: #### L 500.2500, L100.0100 ####[facility] [address] [place], [address] Magnesiumon 07-26-2024 Magnesium [Mass/Vol] 1.9 mg/dL Normal 1.6-2.6 [facility] Comment on above: Performed By: #### L 501.2300, L501.5200, L500.2500 ####[facility] [address] [place], [address] Oncology Visit Reporton 07-13 Oncology Visit Report Normal [facility] Phosphoruson 07-26-2024 Phosphate [Mass/Vol] 3.3 mg/dL Normal 2.5-4.9 [facility] Comment on above: Performed By: #### L 501.2300, L501.5200, L500.2500 ####[facility] [address] 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, [address] CA,Total 9.0 mg/dL Normal 8.5-10.1 [facility] Comment on above: Performed By: #### L 100.0100, L501.5200, L500.2500 ####[facility] [address] [place], [address] Chloride [Moles/Vol] 108 mmol/L High 98-107 [facility] Comment on above: Performed By: #### L 100.0100, L501.5200, L500.2500 ####[facility] [address] [place], [address] CO2 [Moles/Vol] 26.0 mmol/L Normal 21.0-32.0 [facility] Comment on above: Performed By: #### L 100.0100, L501.5200, L500.2500 ####[facility] [address] [place], [address] Creatinine [Mass/Vol] 1.00 mg/dL Normal 0.70-1.30 [facility] Comment on above: Result Comment: The validity of the calculated GFR GFRAA in patients over70 years has not been determined. Clinical correlation isessential. Performed By: #### L 100.0100, L501.5200, L500.2500 ####[facility] [address] [place], [address] ECRCL 74.24 ml/min Normal [facility] Comment on above: Performed By: #### L 100.0100, L501.5200, L500.2500 ####[facility] [address] [place], [address] EST GFR - AA 94 mL/min Normal >60 [facility] Comment on above: Result Comment: Afri can Andorran GFR Calc Performed By: #### L 100.0100, L501.5200, L500.2500 ####[facility] [address] [place], [address] GAP 4 Low 5-15 [facility] Comment on above: Performed By: #### L 100.0100, L501.5200, L500.2500 ####[facility] [address] [place], [address] GFR/1.73 sq M.predicted among non-blacks MDRD (S/P/Bld) [Vol rate/Area] 77 mL/min/{1.73_m2} Normal >60 [facility] Comment on above: Result Comment: Non- GFR Calc Performed By: #### L 100.0100, L501.5200, L500.2500 ####[facility] [address] [place], [address] Glucose [Mass/Vol] 98 mg/dL Normal 74-106 [facility] Comment on above: Performed By: #### L 100.0100, L501.5200, L500.2500 ####[facility] [address] [place], [address] Potassium [Moles/Vol] 3.8 mmol/L Normal 3.5-5.1 [facility] Comment on above: Performed By: #### L 100.0100, L501.5200, L500.2500 ####[facility] [address] [place], [address] Sodium [Moles/Vol] 139 mmol/L Normal 136-145 [facility] Comment on above: Performed By: #### L 100.0100, L501.5200, L500.2500 ####[facility] [address] [place], [address] Urea nitrogen [Mass/Vol] 16 mg/dL Normal 7-18 [facility] Comment on above: Performed By: #### L 100.0100, L501.5200, L500.2500 ####[facility] [address] [place], [address] CBC W/Diff, Automatedon 10-0 7-2023 Absolute Lymph 2.02 X10 3/uL Normal 0.83-4.51 [facility] Comment on above: Performed By: #### L 100.0100, L501.5200, L500.2500 ####[facility] [address] [place], [address] Absolute Neut 4.4 X10 3/uL Normal 2.0-7.7 [facility] Comment on above: Performed By: #### L 100.0100, L501.5200, L500.2500 ####[facility] [address] [place], [address] Basophils/100 WBC (Bld) 0.3 % Normal 0-1 [facility] Comment on above: Performed By: #### L 100.0100, L501.5200, L500.2500 ####[facility] [address] [place], [address] Eosinophils/100 WBC (Bld) 3.4 % Normal 0-5 [facility] Comment on above: Performed By: #### L 100.0100, L501.5200, L500.2500 ####[facility] [address] [place], [address] Erythrocyte distribution width (RBC) [Ratio] 14.3 % Normal 11.6-14.6 [facility] Comment on above: Performed By: #### L 100.0100, L501.5200, L500.2500 ####[facility] [address] [place], [address] Hematocrit (Bld) [Volume fraction] 39.9 % Low 40-54 [facility] Comment on above: Performed By: #### L 100.0100, L501.5200, L500.2500 ####[facility] [address] [place], [address] Hemoglobin (Bld) [Mass/Vol] 12.9 g/dL Low 13.0-16.5 [facility] Comment on above: Performed By: #### L 100.0100, L501.5200, L500.2500 ####[facility] [address] [place], [address] IG% 0.300 Normal 0.0-0.9 [facility] Comment on above: Result Comment: IG% - Immature Granulocytes (promyelocytes, myelocytes andmetamyelocytes) > 1% indicates that a LEFT SHIFT is Present. Performed By: #### L 100.0100, L501.5200, L500.2500 ####[facility] [address] [place], [address] Lymphocytes/100 WBC (Bld) 27.5 % Normal 19-41 [facility] Comment on above: Performed By: #### L 100.0100, L501.5200, L500.2500 ####[facility] [address] [place], [address] MCH (RBC) [Entitic mass] 30.6 pg Normal 27.0-32.0 [facility] Comment on above: Performed By: #### L 100.0100, L501.5200, L500.2500 ####[facility] [address] [place], [address] MCHC (RBC) [Mass/Vol] 32.3 g/dL Normal 32-36 [facility] Comment on above: Performed By: #### L 100.0100, L501.5200, L500.2500 ####[facility] [address] [place], [address] MCV (RBC) [Entitic vol] 94.8 fL High 80-94 [facility] Comment on above: Performed By: #### L 100.0100, L501.5200, L500.2500 ####[facility] [address] [place], [address] Monocytes/100 WBC (Bld) 8.7 % Normal 0-10 [facility] Comment on above: Performed By: #### L 100.0100, L501.5200, L500.2500 ####[facility] [address] [place], [address] Neutrophils/100 WBC (Bld) 59.8 % Normal 47-70 [facility] Comment on above: Performed By: #### L 100.0100, L501.5200, L500.2500 ####[facility] [address] [place], [address] Nucleated RBC (Bld) [#/Vol] 0 10*3/uL Normal 0-5 [facility] Comment on above: Performed By: #### L 100.0100, L501.5200, L500.2500 ####[facility] [address] [place], [address] Platelet mean volume (Bld) [Entitic vol] 10.1 fL Normal 6.2-12.0 [facility] Comment on above: Performed By: #### L 100.0100, L501.5200, L500.2500 ####[facility] [address] [place], [address] Platelets (Bld) [#/Vol] 187 10*3/uL Normal 150-450 [facility] Comment on above: Performed By: #### L 100.0100, L501.5200, L500.2500 ####[facility] [address] [place], [address] RBC (Bld) [#/Vol] 4.21 10*6/uL Low 4.6-6.2 [facility] Comment on above: Performed By: #### L 100.0100, L501.5200, L500.2500 ####[facility] [address] [place], [address] RDW SD 50.2 fl High 35.1-43.9 [facility] Comment on above: Performed By: #### L 100.0100, L501.5200, L500.2500 ####[facility] [address] [place], [address] WBC (Bld) [#/Vol] 7.4 10*3/uL Normal 4.4-11.0 [facility] Comment on above: Performed By: #### L 100.0100, L501.5200, L500.2500 ####[facility] [address] [place], [address] Magnesiumon 07-19-2024 Magnesium [Mass/Vol] 1.8 mg/dL Normal 1.6-2.6 [facility] Comment on above: Performed By: #### L 100.0100, L501.5200, L500.2500 ####[facility] [address] [place], [address] Oncology Visit Reporton Oncology Visit Report Normal [facility] CXR for Line Placementon CXR for Line Placement Normal [facility] Discharge Instructionon Discharge Instruction Normal [facility] MR/POSTOP.ANEon 07-15-2024 MR/POSTOP.ANE Normal [facility] MR/GSSAQCTX5fy 07-15-2024 MR/POSTOPAN2 Normal [facility] Operative Reporton Operative Report Normal [facility] Oncology Visit Reporton 06-15 Oncology Visit Report Normal [facility] SP/HP.SP.Mckenna 07-12-2024 SP/HP.SP.EV Normal [facility] Surgery Visit Reporton 07-[address] [facility] CBC W/Diff, Automatedon - Absolute Lymph 2.01 X10 3/uL Normal 0.83-4.51 [facility] Comment on above: Performed By: #### L 100.0100, L501.2300 ####[facility] [address] [place], [address] Absolute Neut 4.2 X10 3/uL Normal 2.0-7.7 [facility] Comment on above: Performed By: #### L 100.0100, L501.2300 ####[facility] [address] [place], [address] Basophils/100 WBC (Bld) 0.4 % Normal 0-1 [facility] Comment on above: Performed By: #### L 100.0100, L501.2300 ####[facility] [address] [place], [address] Eosinophils/100 WBC (Bld) 3.1 % Normal 0-5 [facility] Comment on above: Performed By: #### L 100.0100, L501.2300 ####[facility] [address] [place], [address] Erythrocyte distribution width (RBC) [Ratio] 14.7 % High 11.6-14.6 [facility] Comment on above: Performed By: #### L 100.0100, L501.2300 ####[facility] [address] [place], [address] Hematocrit (Bld) [Volume fraction] 41.9 % Normal 40-54 [facility] Comment on above: Performed By: #### L 100.0100, L501.2300 ####[facility] [address] [place], [address] Hemoglobin (Bld) [Mass/Vol] 13.7 g/dL Normal 13.0-16.5 [facility] Comment on above: Performed By: #### L 100.0100, L501.2300 ####[facility] [address] [place], [address] IG% 0.400 Normal 0.0-0.9 [facility] Comment on above: Result Comment: IG% - Immature Granulocytes (promyelocytes, myelocytes andmetamyelocytes) > 1% indicates that a LEFT SHIFT is Present. Performed By: #### L 100.0100, L501.2300 ####[facility] [address] [place], [address] Lymphocytes/100 WBC (Bld) 28.7 % Normal 19-41 [facility] Comment on above: Performed By: #### L 100.0100, L501.2300 ####[facility] [address] [place], [address] MCH (RBC) [Entitic mass] 30.2 pg Normal 27.0-32.0 [facility] Comment on above: Performed By: #### L 100.0100, L501.2300 ####[facility] [address] [place], [address] MCHC (RBC) [Mass/Vol] 32.7 g/dL Normal 32-36 [facility] Comment on above: Performed By: #### L 100.0100, L501.2300 ####[facility] [address] [place], [address] MCV (RBC) [Entitic vol] 92.3 fL Normal 80-94 [facility] Comment on above: Performed By: #### L 100.0100, L501.2300 ####[facility] [address] [place], [address] Monocytes/100 WBC (Bld) 8.0 % Normal 0-10 [facility] Comment on above: Performed By: #### L 100.0100, L501.2300 ####[facility] [address] [place], [address] Neutrophils/100 WBC (Bld) 59.4 % Normal 47-70 [facility] Comment on above: Performed By: #### L 100.0100, L501.2300 ####[facility] [address] [place], [address] Nucleated RBC (Bld) [#/Vol] 0 10*3/uL Normal 0-5 [facility] Comment on above: Performed By: #### L 100.0100, L501.2300 ####[facility] [address] [place], [address] Platelet mean volume (Bld) [Entitic vol] 10.6 fL Normal 6.2-12.0 [facility] Comment on above: Performed By: #### L 100.0100, L501.2300 ####[facility] [address] [place], [address] Platelets (Bld) [#/Vol] 173 10*3/uL Normal 150-450 [facility] Comment on above: Performed By: #### L 100.0100, L501.2300 ####[facility] [address] [place], [address] RBC (Bld) [#/Vol] 4.54 10*6/uL Low 4.6-6.2 [facility] Comment on above: Performed By: #### L 100.0100, L501.2300 ####[facility] [address] [place], [address] RDW SD 49.8 fl High 35.1-43.9 [facility] Comment on above: Performed By: #### L 100.0100, L501.2300 ####[facility] [address] [place], [address] WBC (Bld) [#/Vol] 7.0 10*3/uL Normal 4.4-11.0 [facility] Comment on above: Performed By: #### L 100.0100, L501.2300 ####[facility] [address] [place], [address] Comprehensive Metabolic Prof ilon 07-08-2024 Albumin [Mass/Vol] 3.6 g/dL Normal 3.2-5.0 [facility] Comment on above: Performed By: #### L 500.4050, L501.5200, L501.9910 ####[facility] [address] [place], [address] Albumin/Globulin [Mass ratio] 0.9 {ratio} Normal 0.9-2.4 [facility] Comment on above: Performed By: #### L 500.4050, L501.5200, L501.9910 ####[facility] [address] [place], [address] ALK P 94 U/L Normal 45-117 [facility] Comment on above: Performed By: #### L 500.4050, L501.5200, L501.9910 ####[facility] [address] [place], [address] ALT [Catalytic activity/Vol] 29 U/L Normal 16-61 [facility] Comment on above: Performed By: #### L 500.4050, L501.5200, L501.9910 ####[facility] [address] [place], [address] AST [Catalytic activity/Vol] 19 U/L Normal 15-37 [facility] Comment on above: Performed By: #### L 500.4050, L501.5200, L501.9910 ####[facility] [address] [place], [address] Bilirubin [Mass/Vol] 0.80 mg/dL Normal 0.20-1.00 [facility] Comment on above: Result Comment: For patients on eltrombopag therapy, use of Dimension [place] TBIL is not recommended. Performed By: #### L 500.4050, L501.5200, L501.9910 ####[facility] [address] [place], [address] BUN/CRE 17.5 RATIO Normal 10-20 [facility] Comment on above: Performed By: #### L 500.4050, L501.5200, L501.9910 ####[facility] [address] [place], [address] CA,Total 9.5 mg/dL Normal 8.5-10.1 [facility] Comment on above: Performed By: #### L 500.4050, L501.5200, L501.9910 ####[facility] [address] [place], [address] Chloride [Moles/Vol] 111 mmol/L High 98-107 [facility] Comment on above: Performed By: #### L 500.4050, L501.5200, L501.9910 ####[facility] [address] [place], [address] CO2 [Moles/Vol] 24.0 mmol/L Normal 21.0-32.0 [facility] Comment on above: Performed By: #### L 500.4050, L501.5200, L501.9910 ####[facility] [address] [place], [address] Creatinine [Mass/Vol] 0.97 mg/dL Normal 0.70-1.30 [facility] Comment on above: Result Comment: The validity of the calculated GFR GFRAA in patients over70 years has not been determined. Clinical correlation isessential. Performed By: #### L 500.4050, L501.5200, L501.9910 ####[facility] [address] [place], [address] EST GFR - AA 96 mL/min Normal >60 [facility] Comment on above: Result Comment: Afri can [place]ran GFR Calc Performed By: #### L 500.4050, L501.5200, L501.9910 ####[facility] [address] [place], [address] GAP 4 Low 5-15 [facility] Comment on above: Performed By: #### L 500.4050, L501.5200, L501.9910 ####[facility] [address] [place], [address] GFR/1.73 sq M.predicted among non-blacks MDRD (S/P/Bld) [Vol rate/Area] 80 mL/min/{1.73_m2} Normal >60 [facility] Comment on above: Result Comment: Non- GFR Calc Performed By: #### L 500.4050, L501.5200, L501.9910 ####[facility] [address] [place], [address] Globulin (S) [Mass/Vol] 3.9 g/dL Normal 2.2-4.2 [facility] Comment on above: Performed By: #### L 500.4050, L501.5200, L501.9910 ####[facility] [address] [place], [address] Glucose [Mass/Vol] 106 mg/dL Normal 74-106 [facility] Comment on above: Result Comment: Fast ing Glucose result from 100 to 125 mg/dLsuggests IMPAIRED HOMEOSTASIS per A.D.A. criteria. Performed By: #### L 500.4050, L501.5200, L501.9910 ####[facility] [address] [place], [address] Potassium [Moles/Vol] 4.1 mmol/L Normal 3.5-5.1 [facility] Comment on above: Performed By: #### L 500.4050, L501.5200, L501.9910 ####[facility] [address] [place], [address] Sodium [Moles/Vol] 139 mmol/L Normal 136-145 [facility] Comment on above: Performed By: #### L 500.4050, L501.5200, L501.9910 ####[facility] [address] [place], [address] T PROT 7.5 g/dL Normal 6.4-8.2 [facility] Comment on above: Performed By: #### L 500.4050, L501.5200, L501.9910 ####[facility] [address] [place], [address] Urea nitrogen [Mass/Vol] 17 mg/dL Normal 7-18 [facility] Comment on above: Performed By: #### L 500.4050, L501.5200, [id number] ####[facility] [address] [place], [address] Magnesiumon 07-08-2024 Magnesium [Mass/Vol] 1.9 mg/dL Normal 1.6-2.6 [facility] Comment on above: Performed By: #### L 500.4050, L501.5200, L501.9910 ####[facility] [id number] [place], [address] Modified Barium Swallow Stud yon 07-08-2024 Modified Barium Swallow Study Normal [facility] Oncology Visit Reporton 06-14 Oncology Visit Report Normal [facility] PSA,Total - Annual Screenon 07-08-2024 PSA,TOT SCREEN 4.87 ng/mL High 0.00-4.00 [facility] Comment on above: Result Comment: This test was performed using the TPSA assay method for the[employer] chemistry system. Values obtained with differentassay methods cannot be used interchangably.When changing PSA assays in the course of monitoring apatient, additional sequential testing should be carriedout to confirm baseline values. Performed By: #### L 500.4050, L501.5200, L501.9910 ####[facility] [id number] [place], [address] Phosphoruson 07-08-2024 Phosphate [Mass/Vol] 3.3 mg/dL Normal 2.5-4.9 [facility] Comment on above: Performed By: #### L 100.0100, L501.2300 ####[facility] [id number], [address] Screening prostate specific antigen (PSA) measurementOrdered By: Harley Maurice on 07-08-2024 Prostate Specific Antigen Screen 4.87 ng/mL High 0.00-4.00 [facility] Comment on above: This test was perfor med using the TPSA assay method for the[employer] chemistry system. Values obtained with differentassay methods cannot be used interchangably.When changing PSA assays in the course of monitoring apatient, additional sequential testing should be carriedout to confirm baseline values. Progress Noteson 07-07-2024 [employer] Authentication Interface Message Text SPEECH LANGUAGE PATHOLOGY OUTPATIENT DAILY TREATMENT NOTE Location: [facility] Patient identified by patient stating name and date of . Payor: MEDICARE / Plan: MEDICARE PART A AND B / Product Type: Medicare Time In: 9:15am Time Out: 9:56am Duration: 41 min Session #: 12/20 SUBJECTIVE: Patient subjective/goals: Patient arrives early for appointment accompanied by and daughter. Patient reports eating regular solids like hamburger without a bun, shredded pork, bread, green beans, doughnuts, and chicken along with thin liquids like water, tea, Boost, and coffee without overt signs of airway invasion. Patient states starting chemoradiation treatment soon in [place] where he will also be receiving speech therapy throughout treatment. Patient states he is scheduled for a MBS study tomorrow through speech therapy at [place] location. (I reached out to OFFICE SYSTEM ANALYST in [place].) Pain:None reported Scale (if yes): n/a Location: n/a OBJECTIVE: Patient will complete [id number] of effortful swallows to optimize oropharyngeal pressure in anticipation of dysphagia. -- completed exercise 10x Patient will complete lingual press for 10 seconds [id number] to optimize tongue and palate seal in anticipation of dysphagia. -- completed exercise 10x Patient will complete pharyngocise exercises (falsetto, tongue press, effortful swallow, jaw opening against resistance) to proactively manage anticipated radiation associated dysphagia 10x each, 4x/day. -- not addressed Patient will complete jaw opening against resistance for 30 seconds 10x to optimize mandibular opening in anticipation of trismus. -- completed jaw opening against resistance 10x for 10 seconds each Patient will implement compensatory strategies given written and verbal education to manage radiation associated dysphagia (odynophagia, xerostomia, dysgeusia, fatigue, aspiration risk) in order to tolerate PO intake without >2 week NPO status and optimize long-term swallow function. -- Discussed radiation associated dysphagia with loss of taste, pain, and dry mouth. Encouraged patient to eat and drink by mouth as much as tolerated everyday of CXRT. Discussed likelihood of patient downgraded to pureed solids and thin liquids prison throughout CXRT. Oral supplements given today. -- Patient is considering a PEG tube, but is hoping to not use it if he gets it. Patient will participate in further voice, trismus, and/or lymphedema evaluation as deemed clinically appropriate by the treating clinician. -- not addressed ASSESSMENT: Patient seen for follow up session targeting swallowing function prior to chemoradiation treatment which starts on 07/19/24. Patient is currently consuming a regular solid diet with thin liquids without evidence of pulmonary compromise. Encouraged patient to continue thi diet as tolerated. Discussed diet modifications and role of non-oral nutrition as needed, though patient appears appropriate to continue PO diet throughout chemoradiation. Patient has not continued swallow exercises. Discussed benefits for rehabilitation s/p surgery and prehabilitation given upcoming CXRT. Patient completed ten repetitions of effortful swallow, tongue press, jaw opening against resistance, and teetee today. Patient agreeable with practicing exercises daily at home. PLAN: Continue POC independently and with OFFICE SYSTEM ANALYST in [place] Follow up with [facility] OFFICE SYSTEM ANALYST after completing CXRT Final Inspection Supervisor Goals: 1. Patient will tolerate a PO diet without pulmonary compromise. NEW GOALS Patient will complete teetee [id number] a day to optimize posterior pharyngeal wall contraction during swallowing. HOME PROGRAM/EDUCATION: Diet Recommendation: Regular Solids and Thin Liquids Exercises: Tongue Press 10x5 sets/day Effortful Swallow 10x5 sets/day Teetee 10x5 sets/day Chin Opening against Resistance [id number] seconds/day Vicente Dow Facilities Management Executive Clinician I was present during the entire speech therapy session with patient. I directly supervised Vicente Dow and assisted her with the assessment, treatment, documentation and billing for this visit. I agree with her clinical decision making and have discussed the case with her. 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 Mi Chief Complaint: I'm feeling better Previous Goals Set/Progress 1. Aim to eat 6-8 small/frequent soft and easy to chew/swallow foods, eating every 2-3 hours 2. Include a protein source with all meals/snacks 3. Keep a beverage with you at all times, sipping liquids throughout the day 4. Okay to drink Boost [facility] PO between meals to help meet needs Assessment: Quirino Cordero is a 74 year old male No past medical history on file. Past Surgical History: Procedure Laterality Date DISSECTION, RADICAL NECK, FREE FLAP N/A 06/10/2024 Procedure: PARTIAL GLOSSECTOMY, TRACHEOSTOMY, NECK DISSECTION; Surgeon: Clayton Villarreal MD; Location: PERIOPERATIVE SERVICES; Service: Otolaryngology DISSECTION, RADICAL NECK, MODIFIED N/A 06/10/2024 Procedure: LEFT RADIAL FOREARM FREE FLAP, SPLIT THICKNESS SKIN GRAFT FROM THIGH; Surgeon: Giorgio Mi MD; Location: PERIOPERATIVE SERVICES; Service: Otolaryngology ESOPHAGOSCOPY RIGID N/A 06/10/2024 Procedure: ESOPHAGOSCOPY RIGID; Surgeon: Giorgio Mi MD; Location: PERIOPERATIVE SERVICES; Service: Otolaryngology LARYNGOSCOPY N/A 06/10/2024 Procedure: LARYNGOSCOPY, DIRECT; Surgeon: Giorgio Mi MD; Location: PERIOPERATIVE SERVICES; Service: Otolaryngology has No Known Allergies. Medication: Current Outpatient Medications: chlorhexidine (PERIDEX) 0.12 % oral solution, Swish 15 mL by mouth for 30 seconds then lightly spit out 2 times daily. Do not swallow., Disp: 473 mL, Rfl: 3 bacitracin 500 UNIT/GM OINT ointment, Apply topically 3 times daily. Apply thin layer to incisions, Disp: 28 g, Rfl: 1 doxazosin (CARDURA) 4 MG tablet, 1 Tablet by NG Tube route daily., Disp: 30 Tablet, Rfl: 3 acetaminophen (TYLENOL) 160 MG/5ML oral solution, 31.2 mL by NG Tube route every 6 hours as needed for Fever or Pain., Disp: 236 mL, Rfl: 1 aspirin 81 MG chewable tablet, 1 Tablet by NG Tube route daily for 1 day., Disp: 1 Tablet, Rfl: 0 naloxone 4 mg/0.1 mL nasal liquid, Use 1 Taylors in one nostril (alternate sides) as needed for Drug Overdose for up to 1 dose. Every 2-3 mins. until help arrives., Disp: 1 Each, Rfl: 1 ibuprofen (MOTRIN) 800 MG tablet, Take 800 mg by mouth every 8 hours., Disp: , Rfl: metoprolol (LOPRESSOR) 25 MG tablet, Take 25 mg by mouth 2 times a day., Disp: , Rfl: atorvastatin (LIPITOR) 80 mg tablet, 80 mg every evening., Disp: , Rfl: busPIRone (BUSPAR) 10 MG tablet, , Disp: , Rfl: irbesartan (AVAPRO) 75 MG tablet, every evening., Disp: , Rfl: latanoprost (XALATAN) 0.005 % ophthalmic solution, INSTILL 1 DROP INTO EACH EYE AT BEDTIME, Disp: , Rfl: Vitamins/Minerals: Vitamin D3 Biochemical Data/Medical testing/Procedures: No results found for: HBA1C Lipids (last 3 years, up to 8 values) No lab values to display. BMP (last 3 years, up to 8 values) 06/16/2024 06/15/2024 06/14/2024 06/13/2024 06/12/2024 06/11/2024 06/10/2024 06/10/2024 1:05 AM 3:58 AM 5:04 AM 5:52 AM 4:29 AM 5:31 AM 8:21 PM 1:48 PM Na 140 141 137 138 139 139 141 141 K 4.2 4.6 4.1 4.3 4.1 4.1 4.6 3.9 Cl 109 108 104 109 107 107 107 110 CO2 24 23 24 21 26 25 25 -- Gap 11 15 13 12 10 11 14 -- Glu 98 104 108 110 121 148 149 143 BUN 32 30 18 16 20 25 24 -- Cr 0.81 0.99 0.85 0.69 0.83 1.10 1.22 -- Ca 8.6 8.6 8.8 7.1 8.1 8.9 9.1 -- eGFR 92 79 91 97 91 70 62 -- CBC (last 3 years, up to 8 values) 06/16/2024 06/15/2024 06/14/2024 06/13/2024 06/12/2024 06/11/2024 06/10/2024 06/10/2024 1:05 AM 2:53 AM 5:04 AM 5:31 AM 4:29 AM 4:42 AM 8:04 PM 1:48 PM WBC 7.4 6.8 8.6 7.5 9.3 9.8 10.4 -- RBC 3.96 4.34 4.46 3.72 4.00 3.97 4.42 -- Hgb 12.1 13.0 13.6 11.5 12.4 12.2 13.3 12.7 Hct 36.5 39.9 40.8 34.5 36.9 36.6 40.6 39.0 MCV 92 92 92 93 92 92 92 -- RDW 15.2 15.1 14.6 15.1 14.8 15.1 14.9 -- Plt 216 193 190 169 162 173 160 -- LFT's (last 3 years, up to 8 values) No lab values to display. Anthropometric Measurements: Weight: 226# Height: 67 BMI: 35.5 UBW: 220-240# Adj BW: 168# BP Readings from Last 1 Encounters: 06/16/24 120/62 Weight Change Since Last Visit: +7.7# Weight history: Wt Readings from Last 10 Encounters: 06/23/24 218 lb 12.8 oz (99.2 kg) 06/10/24 232 lb (105.2 kg) 05/26/24 232 lb 1.6 oz (105.3 kg) 05/26/24 232 lb (105.2 kg) 05/11/24 236 lb 1.6 oz (107.1 kg) Significant wt gain of 3.4% x2 weeks Food/Nutrition-Related History: Appetite: good Supplements: none Enteral order: 1.5 cartons Boost VHC BID (8A; 12P); 1 carton Boost VHC BID (4P; 8P) Water flushes: 150 mL H20 before/after q bolus Provides: 1185 mL, 2650 kcal, 110 g pro, 795 mL H20, 1200 mL H20 flush, 1995 mL total free water Route: NG DME: DDM/Adán Last Delivered: 06/2024 Last Ordered: 06/2024 GI Sx: None Urine: Yellow Dentition: Dentures - ill-fitting, wears top plate while eating Allergies/Intolerance: None 24 Hour Recall: (more content not included)... 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 Final path with 2/23 nodes, PNI/LVI +, initial deep muscular soft tissue margin positive but re-resection at anterior floor of mouth Margin negative for invasive carcinoma, with close intralymphatic tumor (single minute focus of intralymphatic carcinoma present on permanent sections but not on frozen sections). Interval History (07/07/24) Overall doing well. Tolerating PO without any significant issues and eating near normal diet. Pain well controlled. Denies any fevers, chills, increased neck swelling or drainage. He has been compliant with tube feeds as well as wound care. Planning to start chemoradiation on 07/19/24 at [facility]. Initial HPI (06/23/24) History and review of systems is negative for changes since last visit except patient is postop. He is doing well overall. His primary care doctor removed his Cervantes last Abdiaziz he has been voiding spontaneously without issues. Pain well controlled. Denies any fevers, chills, increased neck swelling or drainage. He has been compliant with tube feeds as well as wound care No past medical history on file. Past Surgical History: Procedure Laterality Date DISSECTION, RADICAL NECK, FREE FLAP N/A 06/10/2024 Procedure: PARTIAL GLOSSECTOMY, TRACHEOSTOMY, NECK DISSECTION; Surgeon: Clayton Villarreal MD; Location: PERIOPERATIVE SERVICES; Service: Otolaryngology DISSECTION, RADICAL NECK, MODIFIED N/A 06/10/2024 Procedure: LEFT RADIAL FOREARM FREE FLAP, SPLIT THICKNESS SKIN GRAFT FROM THIGH; Surgeon: Giorgio Mi MD; Location: PERIOPERATIVE SERVICES; Service: Otolaryngology ESOPHAGOSCOPY RIGID N/A 06/10/2024 Procedure: ESOPHAGOSCOPY RIGID; Surgeon: Giorgio Mi MD; Location: PERIOPERATIVE SERVICES; Service: Otolaryngology LARYNGOSCOPY N/A 06/10/2024 Procedure: LARYNGOSCOPY, DIRECT; Surgeon: Giorgio Mi MD; Location: PERIOPERATIVE SERVICES; Service: Otolaryngology Current Outpatient Medications Medication Sig Dispense Refill gabapentin (NEURONTIN) 100 MG capsule TAKE 1 CAPSULE 3 TIMES DAILY FOR 3 DAYS, THEN TAKE 2 CAPS 3 TIMES DAILY FOR 3 DAYS, THEN TAKE 3 CAPS 3 TIMES DAILY THEREAFTER. MAY CAUSE SLEEPINESS. CALL PCP TO REPORT EFFECTIVENESS chlorhexidine (PERIDEX) 0.12 % oral solution Swish 15 mL by mouth for 30 seconds then lightly spit out 2 times daily. Do not swallow. 473 mL 3 bacitracin 500 UNIT/GM OINT ointment Apply topically 3 times daily. Apply thin layer to incisions 28 g 1 doxazosin (CARDURA) 4 MG tablet 1 Tablet by NG Tube route daily. 30 Tablet 3 acetaminophen (TYLENOL) 160 MG/5ML oral solution 31.2 mL by NG Tube route every 6 hours as needed for Fever or Pain. 236 mL 1 aspirin 81 MG chewable tablet 1 Tablet by NG Tube route daily for 1 day. 1 Tablet 0 naloxone 4 mg/0.1 mL nasal liquid Use 1 Taylors in one nostril (alternate sides) as needed for Drug Overdose for up to 1 dose. Every 2-3 mins. until help arrives. 1 Each 1 ibuprofen (MOTRIN) 800 MG tablet Take 800 mg by mouth every 8 hours. metoprolol (LOPRESSOR) 25 MG tablet Take 25 mg by mouth 2 times a day. atorvastatin (LIPITOR) 80 mg tablet 80 mg every evening. busPIRone (BUSPAR) 10 MG tablet irbesartan (AVAPRO) 75 MG tablet every evening. latanoprost (XALATAN) 0.005 % ophthalmic solution INSTILL 1 DROP INTO EACH EYE AT BEDTIME No current facility-administered medications for this visit. No Known Allergies PHYSICAL EXAM: Pulse 55 Temp 97.1 ???F (36.2 ???C) (Temporal) Wt 226 lb 8 oz (102.7 kg) SpO2 98% BMI 35.47 kg/m??? Documented vital signs from today's visit reviewed. Physical exam including head and neck examination of the oral cavity, oropharynx, larynx, and hypopharynx including indirect mirror exam as well as inspection and palpation of the face, parotid and neck is remarkable for findings consistent with posttreatment postoperative changes and negative for new lesions, masses or lymphadenopathy. Intraoral RFFF well seated, warm with good cap refill, mild to moderate bulk but swelling continues to improve. Adequate speech (improved). Incisions intact with no evidence of intraoral dehiscence or purulence. Neck incision well healed, mild edema. Shoulder shrug intact and previous slight liberty weakness resolved. Trach site healing well and almost completely closed Left forearm donor site healing well. Incisions clean dry intact with no induration, erythema or purulence. Skin graft well healed IMAGING: CT neck w/ contrast (05/19/2024), personally reviewed IMPRESSION: Left oral tongue mass with metastatic adenopathy to left level III and level IV with suspecting extracapsular extension at level III. CT chest with contrast (05/19/2024), personally reviewed IMPRESSION: (more content not included)... Normal [employer] Park Ranger Authentication Interface Message Text Patient identfied by name and date of Pharmacy updated Vital signs taken Patent in exam room ready for MD Normal [employer] CREATININE FINGERSTICKon CREATININE WB < 1.0 Normal 0.70-1.30 [facility] Comment on above: Performed By: #### L 9100.0200 ####[facility] [id number] [place], [place], [id number] EGFR WB > 60.0000 Normal >60 [facility] Comment on above: Performed By: #### L 9100.0200 ####[facility] [id number] [place], [address] Creatinine measurement at dsideOrdered By: Cain Connor on 07-05-2024 Bedside Creatinine < 1.0 mg/dL 0.70-1.30 [facility] EGFROrdered By: Cain chandra on 07-05-2024 Bedside Estimated GFR (eGFR) > 60.0000 mL/min >60 [facility] GFR/1.73 sq M.predicted among non-blacks MDRD (S/P/Bld) [Vol rate/Area] mL/min/{1.73_m2} >60 [facility] Radiation Oncology Visiton 0 07-01-2024 Radiation Oncology Visit Normal [facility] Progress Noteson 06-23-2024 Park Ranger Authentication Interface Message Text HPI: Quirino Cordero was seen 06/23/2024 in the [facility] for follow up visit with hx of T3N3b left lateral tongue SCCa now s/p surgery with partial glossectomy, left neck dissection ([place]) and left forearm free flap Tricia) on 06/10/24. Final path with 2/23 nodes, PNI/LVI +, initial deep muscular soft tissue margin positive but re-resection at anterior floor of mouth Margin negative for invasive carcinoma, with close intralymphatic tumor (single minute focus of intralymphatic carcinoma present on permanent sections but not on frozen sections). History and review of systems is negative for changes since last visit except patient is postop. He is doing well overall. His primary care doctor removed his Cervantes last Abdiaziz he has been voiding spontaneously without issues. Pain well controlled. Denies any fevers, chills, increased neck swelling or drainage. He has been compliant with tube feeds as well as wound care No past medical history on file. Past Surgical History: Procedure Laterality Date DISSECTION, RADICAL NECK, FREE FLAP N/A 06/10/2024 Procedure: PARTIAL GLOSSECTOMY, TRACHEOSTOMY, NECK DISSECTION; Surgeon: Clayton Villarreal MD; Location: PERIOPERATIVE SERVICES; Service: Otolaryngology DISSECTION, RADICAL NECK, MODIFIED N/A 06/10/2024 Procedure: LEFT RADIAL FOREARM FREE FLAP, SPLIT THICKNESS SKIN GRAFT FROM THIGH; Surgeon: Giorgio Mi MD; Location: PERIOPERATIVE SERVICES; Service: Otolaryngology ESOPHAGOSCOPY RIGID N/A 06/10/2024 Procedure: ESOPHAGOSCOPY RIGID; Surgeon: Giorgio Mi MD; Location: PERIOPERATIVE SERVICES; Service: Otolaryngology LARYNGOSCOPY N/A 06/10/2024 Procedure: LARYNGOSCOPY, DIRECT; Surgeon: Giorgio Mi MD; Location: PERIOPERATIVE SERVICES; Service: Otolaryngology Current Outpatient Medications Medication Sig Dispense Refill chlorhexidine (PERIDEX) 0.12 % oral solution Swish 15 mL by mouth for 30 seconds then lightly spit out 2 times daily. Do not swallow. 473 mL 3 docusate (COLACE) 50 MG/5ML oral liquid 10 mL by NG Tube route daily. 120 mL 0 bacitracin 500 UNIT/GM OINT ointment Apply topically 3 times daily. Apply thin layer to incisions 28 g 1 oxyCODONE 5 MG immediate release tablet 2 Tablets by NG Tube route every 6 hours as needed for Pain for up to 7 days. 28 Tablet 0 polyethylene glycol (MiraLax) packet Dissolve 1 Packet (17 g total) in 8 ounces of liquid and drink daily. 10 Packet 3 doxazosin (CARDURA) 4 MG tablet 1 Tablet by NG Tube route daily. 30 Tablet 3 acetaminophen (TYLENOL) 160 MG/5ML oral solution 31.2 mL by NG Tube route every 6 hours as needed for Fever or Pain. 236 mL 1 aspirin 81 MG chewable tablet 1 Tablet by NG Tube route daily for 1 day. 1 Tablet 0 naloxone 4 mg/0.1 mL nasal liquid Use 1 Taylors in one nostril (alternate sides) as needed for Drug Overdose for up to 1 dose. Every 2-3 mins. until help arrives. 1 Each 1 ALPRAZolam (XANAX) 0.5 MG tablet TAKE 1 TABLET BY MOUTH AT BEDTIME IF NEEDED TO SLEEP WHILE TAKING STEROID ibuprofen (MOTRIN) 800 MG tablet Take 800 mg by mouth every 8 hours. sildenafil citrate (VIAGRA) 100 MG tablet metoprolol (LOPRESSOR) 25 MG tablet Take 25 mg by mouth 2 times a day. atorvastatin (LIPITOR) 80 mg tablet 80 mg every evening. busPIRone (BUSPAR) 10 MG tablet irbesartan (AVAPRO) 75 MG tablet every evening. latanoprost (XALATAN) 0.005 % ophthalmic solution INSTILL 1 DROP INTO EACH EYE AT BEDTIME No current facility-administered medications for this visit. No Known Allergies PHYSICAL EXAM: There were no vitals taken for this visit. Documented vital signs from today's visit reviewed. Physical exam including head and neck examination of the oral cavity, oropharynx, larynx, and hypopharynx including indirect mirror exam as well as inspection and palpation of the face, parotid and neck is remarkable for findings consistent with posttreatment postoperative changes and negative for new lesions, masses or lymphadenopathy. Intraoral RFFF well seated, warm with good cap refill, mild to moderate bulk but swelling significantly improved. Adequate speech. Incisions intact with no evidence of intraoral dehiscence or purulence. Neck incision healing well. Incisions clean, dry and intact mild expected edema. No purulence, dehiscence, or fluctuance appreciated on exam. Shoulder shrug intact and slight liberty weakness but significantly improved. Trach site healing well and almost completely closed Left forearm donor site healing well. Incisions clean dry intact with no induration, erythema or purulence. Approximately 95 % skin graft take, small serous fluid decompressed. IMAGING: CT neck w/ contrast (05/19/2024), personally reviewed IMPRESSION: Left oral tongue mass with metastatic adenopathy to left level III and level IV with suspecting extracapsular extension at level III. CT chest with contrast (05/19/2024), personally reviewed IMPRESSION: 1. No eviden (more content not included)... Normal [employer] Authentication Interface Message Text Documentation: Mode: In Person ADULT NUTRITION FOLLOW-UP Reason for Referral: Squamous Cell Carcinoma of Oral Cavity Referring Provider: Dr. Mi Chief Complaint: I'm feeling better Previous Goals Set/Progress 1. Goal to eat 6-8 small/frequent meals, eating every 2-3 hours, regardless of hunger queues 2. Include a protein source with all meals/snacks, goal for 100 grams/d 3. Okay to use protein shakes as snacks to help meet protein goals Assessment: Quirino Cordero is a 74 year old male No past medical history on file. Past Surgical History: Procedure Laterality Date DISSECTION, RADICAL NECK, FREE FLAP N/A 06/10/2024 Procedure: PARTIAL GLOSSECTOMY, TRACHEOSTOMY, NECK DISSECTION; Surgeon: Clayton Villarreal MD; Location: PERIOPERATIVE SERVICES; Service: Otolaryngology DISSECTION, RADICAL NECK, MODIFIED N/A 06/10/2024 Procedure: LEFT RADIAL FOREARM FREE FLAP, SPLIT THICKNESS SKIN GRAFT FROM THIGH; Surgeon: Giorgio Mi MD; Location: PERIOPERATIVE SERVICES; Service: Otolaryngology ESOPHAGOSCOPY RIGID N/A 06/10/2024 Procedure: ESOPHAGOSCOPY RIGID; Surgeon: Giorgio Mi MD; Location: PERIOPERATIVE SERVICES; Service: Otolaryngology LARYNGOSCOPY N/A 06/10/2024 Procedure: LARYNGOSCOPY, DIRECT; Surgeon: Giorgio Mi MD; Location: PERIOPERATIVE SERVICES; Service: Otolaryngology has No Known Allergies. Medication: Current Outpatient Medications: chlorhexidine (PERIDEX) 0.12 % oral solution, Swish 15 mL by mouth for 30 seconds then lightly spit out 2 times daily. Do not swallow., Disp: 473 mL, Rfl: 3 docusate (COLACE) 50 MG/5ML oral liquid, 10 mL by NG Tube route daily., Disp: 120 mL, Rfl: 0 bacitracin 500 UNIT/GM OINT ointment, Apply topically 3 times daily. Apply thin layer to incisions, Disp: 28 g, Rfl: 1 oxyCODONE 5 MG immediate release tablet, 2 Tablets by NG Tube route every 6 hours as needed for Pain for up to 7 days., Disp: 28 Tablet, Rfl: 0 polyethylene glycol (MiraLax) packet, Dissolve 1 Packet (17 g total) in 8 ounces of liquid and drink daily., Disp: 10 Packet, Rfl: 3 doxazosin (CARDURA) 4 MG tablet, 1 Tablet by NG Tube route daily., Disp: 30 Tablet, Rfl: 3 acetaminophen (TYLENOL) 160 MG/5ML oral solution, 31.2 mL by NG Tube route every 6 hours as needed for Fever or Pain., Disp: 236 mL, Rfl: 1 aspirin 81 MG chewable tablet, 1 Tablet by NG Tube route daily for 1 day., Disp: 1 Tablet, Rfl: 0 naloxone 4 mg/0.1 mL nasal liquid, Use 1 Taylors in one nostril (alternate sides) as needed for Drug Overdose for up to 1 dose. Every 2-3 mins. until help arrives., Disp: 1 Each, Rfl: 1 ALPRAZolam (XANAX) 0.5 MG tablet, TAKE 1 TABLET BY MOUTH AT BEDTIME IF NEEDED TO SLEEP WHILE TAKING STEROID, Disp: , Rfl: ibuprofen (MOTRIN) 800 MG tablet, Take 800 mg by mouth every 8 hours., Disp: , Rfl: sildenafil citrate (VIAGRA) 100 MG tablet, , Disp: , Rfl: metoprolol (LOPRESSOR) 25 MG tablet, Take 25 mg by mouth 2 times a day., Disp: , Rfl: atorvastatin (LIPITOR) 80 mg tablet, 80 mg every evening., Disp: , Rfl: busPIRone (BUSPAR) 10 MG tablet, , Disp: , Rfl: irbesartan (AVAPRO) 75 MG tablet, every evening., Disp: , Rfl: latanoprost (XALATAN) 0.005 % ophthalmic solution, INSTILL 1 DROP INTO EACH EYE AT BEDTIME, Disp: , Rfl: Vitamins/Minerals: Vitamin D3 Biochemical Data/Medical testing/Procedures: No results found for: HBA1C Lipids (last 3 years, up to 8 values) No lab values to display. BMP (last 3 years, up to 8 values) 06/16/2024 06/15/2024 06/14/2024 06/13/2024 06/12/2024 06/11/2024 06/10/2024 06/10/2024 1:05 AM 3:58 AM 5:04 AM 5:52 AM 4:29 AM 5:31 AM 8:21 PM 1:48 PM Na 140 141 137 138 139 139 141 141 K 4.2 4.6 4.1 4.3 4.1 4.1 4.6 3.9 Cl 109 108 104 109 107 107 107 110 CO2 24 23 24 21 26 25 25 -- Gap 11 15 13 12 10 11 14 -- Glu 98 104 108 110 121 148 149 143 BUN 32 30 18 16 20 25 24 -- Cr 0.81 0.99 0.85 0.69 0.83 1.10 1.22 -- Ca 8.6 8.6 8.8 7.1 8.1 8.9 9.1 -- eGFR 92 79 91 97 91 70 62 -- CBC (last 3 years, up to 8 values) 06/16/2024 06/15/2024 06/14/2024 06/13/2024 06/12/2024 06/11/2024 06/10/2024 06/10/2024 1:05 AM 2:53 AM 5:04 AM 5:31 AM 4:29 AM 4:42 AM 8:04 PM 1:48 PM WBC 7.4 6.8 8.6 7.5 9.3 9.8 10.4 -- RBC 3.96 4.34 4.46 3.72 4.00 3.97 4.42 -- Hgb 12.1 13.0 13.6 11.5 12.4 12.2 13.3 12.7 Hct 36.5 39.9 40.8 34.5 36.9 36.6 40.6 39.0 MCV 92 92 92 93 92 92 92 -- RDW 15.2 15.1 14.6 15.1 14.8 15.1 14.9 -- Plt 216 193 190 169 162 173 160 -- LFT's (last 3 years, up to 8 values) No lab values to display. Anthropometric Measurements: Weight: 218.8# Height: 67 BMI: 34.3 UBW: 220-240# Adj BW: 166# BP Readings from Last 1 Encounters: 06/16/24 120/62 Weight Change Since Last Visit: -17.4# Weight history: Wt Readings from Last 10 Encounters: 06/10/24 232 lb (105.2 kg) 05/26/24 232 lb 1.6 oz (105.3 kg) 05/26/24 232 lb (105.2 kg) 05/11/24 236 lb 1.6 oz (107.1 kg) Significant wt loss of 5.7% x2 weeks and 5.8% x1 month Food/Nutrition-Related History: (more content not included)... Normal [facility] [employer] Authentication Interface Message Text Patient was identified by name and date of . Jonesthad Dc Patient in exam room, vital signs taken, ready for MD exam. Normal [facility] Tumor Board Noteon [employer] Authentication Interface Message Text Cancer Type: General Tumor Board Note Provided by Landon Pino MD on 06/22/2024 Diagnosis: Oral Cavity Tongue Squamous Cell Carcinoma Tumor Board Type: ENT Brief Clinical Summary: HPI: 74 year old male with a left sided tongue soreness that started in December,. He was seen by PCP and ENT and there were not concerns for malignancy at that time. He continued to have persistent symptoms and then obtained recent biopsy but was unaware of biopsy results until visit today. He feels like it's relatively stable size. Associated with intermittent left aural pain. Reports pain with eating. Denies fevers, chills, unintentionalweight loss, night sweats, otalgia, sore throat, oral bleeding, dysphagia, odynophagia, voice changes, shortness of breath, hemoptysis or new lesions/masses. Exam was significant for Firm, relatively exophytic and granular left lateral tongue lesion (approx 3 x 2cm) with no extension onto the mandible or into base of tongue. No other lesions appreciated on scope examination. Imaging: CT neck with Contrast (05/19/24): CT NECK W/ CONTRAST Order: [id number] Status: Final result Visible to patient: Yes (seen) Next appt: 06/23/2024 at 01:15 PM in Ent-Otolaryngology (Giorgio Mi MD) Dx: Squamous cell carcinoma of oral cavit... 0 Result Notes 1 Follow-up Encounter Details Reading Physician Reading Date Result Priority Asad Richardson MD [phone] 05/19/2024 Narrative AND Impression EXAMINATION: CT NECK W/ CONTRAST 05/19/2024 12:25 PM CLINICAL HISTORY: newly diagnose oral cavity SCCa ASSOCIATED DIAGNOSIS: 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) ORDERING PROVIDER: GIORGIO MI TECHNOLOGISTS NOTE: COMPARISON: None TECHNIQUE: Thin axial images were obtained through the neck with intravenous contrast. 2D sagittal and coronal reconstructions were obtained from the axial data. Before infusion of intravenous contrast, radiology personnel investigated the possibility of an allergic history and of any history of reaction to iodinated contrast material. Contrast Protocol: Omnipaque 350 [>or =100lb] 75 ml [<100 lb] 1 ml per 1 lb. INTRA-PROCEDURE MEDS: iohexol (OMNIPAQUE) 350 MG/ML injection 75 mL Route: Intravenous Push FINDINGS: Aerodigestive tract: There is a 3.9 x 1.5 x 2.6 cm enhancing mass in the left oral tongue extending toward the root of the tongue. The mass does not involve the midline structures nor the base of the tongue. Lymph nodes: 1.3 cm heterogeneous node at left level III with inferior ill-defined margin suspecting extracapsular extension. 2 additional smaller nodes are present in left level III. 3 small nodes are present in the left level IV. Nonspecific nodes are left level II. Major salivary glands: Normal. Thyroid gland: Normal. Carotid space: Patent bilateral extracranial carotid and jugular systems. Paranasal sinuses, middle ears, mastoids: Clear. Brain and orbits: Imaged portions within normal limits. Bones: No fracture or aggressive osseous lesion. Lungs: Imaged portions are clear. IMPRESSION: Left oral tongue mass with metastatic adenopathy to left level III and level IV with suspecting extracapsular extension at level III. CT Chest with Contrast (05/24/24): CT CHEST W/ CONTRAST Order: [id number] Status: Final result Visible to patient: Yes (seen) Next appt: 06/23/2024 at 01:15 PM in Ent-Otolaryngology (Giorgio Mi MD) Dx: Squamous cell carcinoma of oral cavit... 0 Result Notes Details Reading Physician Reading Date Result Priority Vida Ashford MD [phone] 05/24/2024 Narrative AND Impression EXAMINATION: CT CHEST W/ CONTRAST 05/19/2024 12:25 PM CLINICAL HISTORY: newly diagnose oral cavity SCCa ASSOCIATED DIAGNOSIS: 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) ORDERING PROVIDER: GIORGIO MI TECHNOLOGISTS NOTE: COMPARISON: None TECHNIQUE: Contiguous axial images of the chest were obtained from above the lung apices through the level of the adrenal glands during the bolus administration of intravenous contrast. 2D sagittal and coronal reconstructions were obtained from the axial data. Before infusion of intravenous contrast, radiology personnel investigated the possibility of an allergic history and any history of reaction to iodinated contrast material. Contrast Protocol: Omnipaque 350 [>or =100lb] 75 ml [<100 lb] 1 ml per 1 lb. INTRA-PROCEDURE MEDS: iohexol (OMNIPAQUE) 350 MG/ML injection 75 mL Route: Intravenous Push FINDINGS: Cardiovasculature: Right brachiocephalic artery, left common carotid artery shares a common origin, a normal variant. The heart size is upper limits of normal. Dense mitral annular calcifications. Mild aortic valvular calcifications. Moderate three-vessel coronary artery disease. Mediastinum/Pericardiu m: Distal thoracic esophagus is underdistended, limiting the evaluation. If there is a clinical concern, this can be further evaluated with direct vi (more content not included)... Normal [facility] Telephone Encounteron 2023 [employer] Authentication Interface Message Text Checked in with Gianna, patient's , who states that patient was able to urinate Friday and has been okay ever since. No need for replacement of catheter or urology appointment. Patrick Krishnamurthy RN Normal [facility] Telephone Encounteron 2023 [employer] Authentication Interface Message Text Reached patient's , Gianna, who states that wound care is going well, they feel that they are doing great and do not require home care at this time. She does state, however, that her family doctor removed patients urinary catheter, which was in place after surgery due to inability to urinate. They were instructed that if patient cannot urinate by 6pm today he needs to go to the emergency department. She is asking if this is correct. Advised that unfortunately he will need to seek emergency care if this happens since it is a Friday evening. She acknowledges understanding and will let us know if she needs anything else. Dr Mi notified of situation as well. Patrick Krishnamurthy RN Normal [facility] Telephone Encounteron 2023 [employer] Authentication Interface Message Text Carol Fletcher sent a fax saying that pt. Refused home health care' Agreeable to office discussing further before doing non-admit. - S Normal [facility] BASIC METABOLIC PANELon 09 Anion gap [Moles/Vol] 11 mmol/L Normal 10-20 [facility] Comment on above: Performed By: #### C H8, PHOS, MG ####[facility] [id number] [place], [place], Calcium [Mass/Vol] 8.6 mg/dL Normal 8.6-10.3 [facility] Comment on above: Performed By: #### C H8, PHOS, MG ####[facility] [id number] [place], [place], Chloride [Moles/Vol] 109 mmol/L High 98-107 [facility] Comment on above: Performed By: #### Connor HJonnathan PHOS, MG ####[facility] [id number] [place], [place], CO2 [Moles/Vol] 24 mmol/L Normal 21-31 [facility] Comment on above: Performed By: #### Connor Knutson PHOS, MG ####[facility] [id number] [place], [place], Creatinine [Mass/Vol] 0.81 mg/dL Normal 0.70-1.30 [facility] Comment on above: Performed By: #### Connor HJonnathan PHOS, MG ####[facility] [id number] [place], [place], ESTIMATED GFR (CKD-EPI) 92 mL/min/1.73sqm Normal >=60 [facility] Comment on above: Result Comment: 2020 CKD EPI Equation using Creatinine without Race Comment: Estimated glomerular filtration rate (eGFR) is calculated without a race coefficient. Values should be interpreted in the context of the patient's full clinical presentation. Reference: 1. Bin C, Ronnie M, Arnol JOSE, et al.. A Unifying Approach for GFR Estimation: Recommendations of the NKF-ASN Task Force on Reassessing the Inclusion of Race in Diagnosing Kidney Disease. [place] Journal of Kidney Diseases 2021;79(2):268-88.e1. 2. N Engl J Med 2020 Vol. 385 Issue 19 Pages 5084-9474 Performed By: #### Connor Knutson PHOS, MG ####[facility] [id number] [place], [place], Glucose [Mass/Vol] 98 mg/dL Normal 74-109 The [facility] Comment on above: Performed By: #### oCnnor Knutson PHOS, MG ####[facility] [id number] [place], [place], Potassium [Moles/Vol] 4.2 mmol/L Normal 3.5-5.0 The [facility] Comment on above: Performed By: #### Connor HJonnathan PHOS, MG ####[facility] [id number] [place], [place], Sodium [Moles/Vol] 140 mmol/L Normal 136-145 [facility] Comment on above: Performed By: #### BETZAIDA Christensen MG ####[facility] [id number] [place], [place], Urea nitrogen [Mass/Vol] 32 mg/dL High 7-25 [facility] Comment on above: Performed By: #### BETZAIDA Christensen MG ####[facility] [id number] [place], [place], Basic metabolic 2000 panelon 06-16-2024 Anion gap [Moles/Vol] 11 mmol/L 10 - 20 [facility] Calcium [Mass/Vol] 8.6 mg/dL 8.6 - 10. 3 mg/dL [facility] Chloride [Moles/Vol] 109 mmol/L High 98 - 10 7 mmol/L [facility] CO2 [Moles/Vol] 24 mmol/L 21 - 31 mmol/L [facility] Creatinine [Mass/Vol] 0.81 mg/dL 0.70 - 1.30 mg/dL [facility] GFR/1.73 sq M.predicted CKD-EPI (S/P/Bld) [Vol rate/Area] 92 - PINF [facility] Comment on above: 2020 CKD EPI Equatio n using Creatinine without Race Comment: Estimated glomerular filtration rate (eGFR) is calculated without a race coefficient. Values should be interpreted in the context of the patient's full clinical presentation. Reference: 1. Bin C, Ronnie M, Arnol JOSE, et al.. A Unifying Approach for GFR Estimation: Recommendations of the NKF-ASN Task Force on Reassessing the Inclusion of Race in Diagnosing Kidney Disease. [place] Journal of Kidney Diseases 202;79(2):268-88.e1. 2. N Engl J Med 1 Vol. 385 Issue 19 Pages 3345-0109 Glucose [Mass/Vol] 98 mg/dL 74 - 109 mg/dL [facility] Interpretation and review of laboratory results Abnormal [facility] Potassium [Moles/Vol] 4.2 mmol/L 3.5 - 5.0 mmol/L [facility] Sodium [Moles/Vol] 140 mmol/L 136 - 145 mmol/L [facility] Urea nitrogen [Mass/Vol] 32 mg/dL High 7 - 25 mg/[facility] CBC panel Auto (Bld)on 06-16 Erythrocyte distribution width (RBC) [Ratio] 15.2 % High 11.5 - 14.5 % [facility] Hematocrit (Bld) [Volume fraction] 36.5 % Low 41.0 - 53.0 % [facility] Hemoglobin (Bld) [Mass/Vol] 12.1 g/dL Low 13.9 - 16.3 g/dL [facility] Interpretation and review of laboratory results Abnormal [facility] MCH (RBC) [Entitic mass] 30.5 pg 26.0 - 34.0 pg [facility] MCHC (RBC) [Mass/Vol] 33.1 g/dL 32.0 - 35.9 g/dL [facility] MCV (RBC) [Entitic vol] 92 fL 80 - 100 fL [facility] Platelet mean volume (Bld) [Entitic vol] 8.3 fL 7.5 - 11.2 fL [facility] Platelets (Bld) [#/Vol] 216 10*3/uL 150 - 400 K/uL [facility] RBC (Bld) [#/Vol] 3.96 10*6/uL Low [facility] WBC (Bld) [#/Vol] 7.4 10*3/uL 4.5 - 11.5 K/uL [facility] COMPLETE BLOOD COUNTon 06-16 Erythrocyte distribution width (RBC) [Ratio] 15.2 % High 11.5-14.5 The [facility] Comment on above: Performed By: #### C BC #### S PATHOLOGY LABORATORY [address] [place] [address], Hematocrit (Bld) [Volume fraction] 36.5 % Low 41.0-53.0 The [facility] Comment on above: Performed By: #### C BC #### [facility] [address] [place] [address], Hemoglobin (Bld) [Mass/Vol] 12.1 g/dL Low 13.9-16.3 The [facility] Comment on above: Performed By: #### C BC #### [facility] [address] [place] [address], MCH (RBC) [Entitic mass] 30.5 pg Normal 26.0-34.0 [facility] Comment on above: Performed By: #### C BC #### S [facility] LABORATORY [address] [place] [address], MCHC (RBC) [Mass/Vol] 33.1 g/dL Normal 32.0-35.9 [facility] Comment on above: Performed By: #### C BC #### S PATH[facility] LABORATORY [address] [place] [address], MCV (RBC) [Entitic vol] 92 fL Normal 80-100 T [facility] Comment on above: Performed By: #### C BC #### S [facility] LABORATORY [address] [place] [address], Platelet mean volume (Bld) [Entitic vol] 8.3 fL Normal 7.5-11.2 [facility] Comment on above: Performed By: #### C BC #### [facility] [address] [place] [address], Platelets (Bld) [#/Vol] 216 10*3/uL Normal 150-400 [facility] Comment on above: Performed By: #### C BC #### [facility] PATH[facility] [address] [place] [address], RBC (Bld) [#/Vol] 3.96 10*6/uL Low 4.50-5.90 [facility] Comment on above: Performed By: #### C BC #### S PATHOLOG[facility] LABORATORY [address] [place] [address], WBC (Bld) [#/Vol] 7.4 10*3/uL Normal 4.5-11.5 [facility] Comment on above: Performed By: #### C BC #### S [facility] LABORATORY [address] [place] [address], Consultson 06-16-2024 [employer] Authentication Interface Message Text OCCUPATIONAL THERAPY NOTE Consult received for splint fabrication. Patient mod I . D/c from acute OT services on 06/14/24 Pt was seen this AM x 25 minutes for LUE Thermoplastic splint fabrication. (Time In: 1140, Time Out: 1205) Appearance: Seated in chair upon arrival, trach, IV, bulky dressing to LUE. Family present Unable to assess skin due to bulky dressing UE Motor: L Radial forearm free flap Patient s/p trach, resection of tongue SCCa, neck dissection, and reconstruction with radial forearm free tissue transfer on 06/10/24 *Fabricated: L wrist cock up splint *Good fit and position achieved. Pt reports splint is comfortable. *Purpose of splints: enhance function, support/rest, and protect healing - L radial forearm *Wearing schedule: At all times, day AND night. Until next MD visit. Will adjust at needed. Per order splint will go over wound dressing ( (xeroform, telfa, kerlix, and jessica wrap) Precautions discussed with the patient *Reviewed splint application, wear schedule, care, and precautions with patient, who report(s) no questions/problems at this time. Splint to be assess at follow up appointments. Patient to d/c home today. Kevin Sandoval OTR/L Normal [facility] MAGNESIUMon 06-16-2024 Magnesium [Mass/Vol] 2.2 mg/dL 1.9 - 2 .7 mg/dL [facility] Magnesium [Mass/Vol] 2.2 mg/dL Normal 1.9-2.7 [facility] Comment on above: Performed By: #### C H8, PHOS, MG ####[facility] [id number] [place], [place], No Panel Informationon 06-16 Interpretation and review of laboratory results Normal [facility] PHOSPHORUSon 06-16-2024 Phosphate [Mass/Vol] 3.8 mg/dL 2.5 - 5 .0 mg/dL [facility] Phosphate [Mass/Vol] 3.8 mg/dL Normal 2.5-5.0 [facility] Comment on above: Performed By: #### C H8, PHOS, MG ####[facility] [id number] [place], [place], Progress Noteson 06-16-2024 [employer] Authentication Interface Message Text Home Trach Supplies: Suction pump, home model portable (E0600) Trachel suction tube (A4624) Size: (Please indicate size of Herminiauer) Canister, disposable, for pump (A7000) Tubing used w/bseshu3f pump (A7002) Oropharyngeal suction cath, each (A4628) 50 PSI Compressor (E0565) Trach size (indicate size here) cuffless shiley, 2 per month (E1399) Large velcro ties, 4 per month (E1399) Saline bottle, 1 Liter, 2 per week (8 per month) *Not a DME order, to be prescribed as a medication order* 1-5 delivered the bedside 6-8 delivered to the home once patient is home 9 to be filled at pharmacy IF SUCTION MACHINE IS BEING ORDERED MDS TO PLEASE ORDER, USING 'DME SUCTION MACHINE ORDER SET. This order will populate everything except the 50 PSI compressor as that is its own order (E0565) as noted above. Normal [facility] Park [employer] Authentication Interface Message Text 0045: Pt transferred to via bed with RNx2. Report given to Rosetta GARZA. All belongings taken with pt at time of transfer. Pt stated ok to call his family members in the morning regarding his transfer. 0730: Attempted to call pt's x2 at phone number listed in [employer] regarding pt's transfer and was unable to get through. Normal [facility] BASIC METABOLIC PANELon 09-0 -2023 Anion gap [Moles/Vol] 15 mmol/L Normal 10-20 [facility] Comment on above: Performed By: #### C BC #### [facility] [address] [place] [address], Calcium [Mass/Vol] 8.6 mg/dL Normal 8.6-10.3 [facility] Comment on above: Performed By: #### C BC #### [facility] [address] [place] [address], Chloride [Moles/Vol] 108 mmol/L High 98-107 [facility] Comment on above: Performed By: #### C BC #### [facility] [address] [place] [address], CO2 [Moles/Vol] 23 mmol/L Normal 21-31 [facility] Comment on above: Performed By: #### C BC #### [facility] [address] [place] [address], Creatinine [Mass/Vol] 0.99 mg/dL Normal 0.70-1.30 [facility] Comment on above: Performed By: #### C BC #### S PATHOLOGY LABORATORY [address] [place] [address], ESTIMATED GFR (CKD-EPI) 79 mL/min/1.73sqm Normal >=60 [facility] Comment on above: Result Comment: 2020 CKD EPI Equation using Creatinine without Race Comment: Estimated glomerular filtration rate (eGFR) is calculated without a race coefficient. Values should be interpreted in the context of the patient's full clinical presentation. Reference: 1. Bin C, Ronnie M, Arnol DC, et al.. A Unifying Approach for GFR Estimation: Recommendations of the NKF-ASN Task Force on Reassessing the Inclusion of Race in Diagnosing Kidney Disease. [place] Journal of Kidney Diseases 2021;79(2):268-88.e1. 2. N Engl J Med 1 Vol. 385 Issue 19 Pages 9099-0009 Performed By: #### C BC #### S [facility] [address] [place] [address], Glucose [Mass/Vol] 104 mg/dL Normal 74-109 [facility] Comment on above: Performed By: #### C BC #### S [facility] LAB[facility]ATORY [address] [place] [address], Potassium [Moles/Vol] 4.6 mmol/L Normal 3.5-5.0 [facility] Comment on above: Performed By: #### C BC #### S [facility] LAB[facility]ATORY [address] [place] [address], Sodium [Moles/Vol] 141 mmol/L Normal 136-145 [facility] Comment on above: Performed By: #### C BC #### [facility] [address] [place] [address], Urea nitrogen [Mass/Vol] 30 mg/dL High 7-25 [facility] Comment on above: Performed By: #### C BC #### [facility] [address] [place] [address], Basic metabolic 2000 panelon 06-15-2024 Anion gap [Moles/Vol] 15 mmol/L 10 - 20 [facility] Calcium [Mass/Vol] 8.6 mg/dL 8.6 - 10. 3 mg/dL [facility] Chloride [Moles/Vol] 108 mmol/L High 98 - 10 7 mmol/L [facility] CO2 [Moles/Vol] 23 mmol/L 21 - 31 mmol/L [facility] Creatinine [Mass/Vol] 0.99 mg/dL 0.70 - 1.30 mg/dL [facility] GFR/1.73 sq M.predicted CKD-EPI (S/P/Bld) [Vol rate/Area] 79 - PINF [facility] Comment on above: 2020 CKD EPI Equatio n using Creatinine without Race Comment: Estimated glomerular filtration rate (eGFR) is calculated without a race coefficient. Values should be interpreted in the context of the patient's full clinical presentation. Reference: 1. Bin C, Ronnie M, Arnol DC, et al.. A Unifying Approach for GFR Estimation: Recommendations of the NKF-ASN Task Force on Reassessing the Inclusion of Race in Diagnosing Kidney Disease. [place] Journal of Kidney Diseases 202;79(2):268-88.e1. 2. N Engl J Med 2020 Vol. 385 Issue 19 Pages 2330-2174 Glucose [Mass/Vol] 104 mg/dL 74 - 109 mg/dL [facility] Interpretation and review of laboratory results Abnormal [facility] Potassium [Moles/Vol] 4.6 mmol/L 3.5 - 5.0 mmol/L [facility] Sodium [Moles/Vol] 141 mmol/L 136 - 145 mmol/L [facility] Urea nitrogen [Mass/Vol] 30 mg/dL High 7 - 25 mg/dL [facility] CBC panel Auto (Bld)on 06-15 Erythrocyte distribution width (RBC) [Ratio] 15.1 % High 11.5 - 14.5 % [facility] Hematocrit (Bld) [Volume fraction] 39.9 % Low 41.0 - 53.0 % [facility] Hemoglobin (Bld) [Mass/Vol] 13.0 g/dL Low 13.9 - 16.3 g/dL [facility] Interpretation and review of laboratory results Abnormal [facility] MCH (RBC) [Entitic mass] 29.8 pg 26.0 - 34.0 pg [facility] MCHC (RBC) [Mass/Vol] 32.5 g/dL 32.0 - 35.9 g/dL [facility] MCV (RBC) [Entitic vol] 92 fL 80 - 100 fL [facility] Platelet mean volume (Bld) [Entitic vol] 8.7 fL 7.5 - 11.2 fL [facility] Platelets (Bld) [#/Vol] 193 10*3/uL 150 - 400 K/uL [facility] RBC (Bld) [#/Vol] 4.34 10*6/uL Low [facility] WBC (Bld) [#/Vol] 6.8 10*3/uL 4.5 - 11.5 K/[facility]L [facility] COMPLETE BLOOD COUNTon 06-15 Erythrocyte distribution width (RBC) [Ratio] 15.1 % High 11.5-14.5 [facility] Comment on above: Performed By: #### MG Christensen PHOS #### S [facility] [address] [place] [address], Hematocrit (Bld) [Volume fraction] 39.9 % Low 41.0-53.0 [facility] Comment on above: Performed By: ###MG Singh PHOS #### [facility] [address] [place] [address], Hemoglobin (Bld) [Mass/Vol] 13.0 g/dL Low 13.9-16.3 [facility] Comment on above: Performed By: ###MG Singh PHOS #### [facility] [address] [place] [address], MCH (RBC) [Entitic mass] 29.8 pg Normal 26.0-34.0 [facility] Comment on above: Performed By: ###MG Singh PHOS #### [facility] [address] [place] [address], MCHC (RBC) [Mass/Vol] 32.5 g/dL Normal 32.0-35.9 [facility] Comment on above: Performed By: ###MG Singh PHOS #### [facility] [address], [place], MCV (RBC) [Entitic vol] 92 fL Normal 80-100 T he [facility] Comment on above: Performed By: #### MG Amparo, PHOS #### [facility] [address], [place], Platelet mean volume (Bld) [Entitic vol] 8.7 fL Normal 7.5-11.2 [facility] Comment on above: Performed By: #### MG Amparo, PHOS #### [facility] [address], [place], Platelets (Bld) [#/Vol] 193 10*3/uL Normal 150-400 [facility] Comment on above: Performed By: #### MG Amparo, PHOS #### [facility] [address], [place], RBC (Bld) [#/Vol] 4.34 10*6/uL Low 4.50-5.90 [facility] Comment on above: Performed By: #### MG Amparo, PHOS #### [facility] [address], [place], WBC (Bld) [#/Vol] 6.8 10*3/uL Normal 4.5-11.5 [facility] Comment on above: Performed By: #### Connor Knutson MG, PHOS #### [facility] [address], [place], Consultson 06-15-2024 [employer] Authentication Interface Message Text Nutrition Support (TF) Discharge Planning Note Pt nearing discharge to home with [facility] on TF. Reports tolerating TF, no issues. However, per RN has needed to run feeds over 2hrs d/t some abdominal discomfort. Recommend to transition to home TF regimen today to ensure well-tolerated by pt prior to discharge - starting with x2hr run time for feeds via gravity bag, then if tolerating transition down to x1hr run time. [employer] has delivered his homegoing TF supplies however family reports not being provided education yet - reached out to DME who states that they will return to provide ed in the AM. Current TF order: Impact Peptide 1.5/Pivot 1.5 400mL 4x/d - each bolus ran over 1hr via pump. + FWF 120mL before AND after each bolus. Diet: NPO Estimated needs: using admit wt [id number] kcal/d 25-30 kcal/kg admit wt [105.2 kg] [MSJ 1750 kcal] 135g pro/d 2 g pro/kg IBW 2600 mL/d 25 mL/kg admit wt Recommendations/Plan: Transition to home TF regimen to ensure pt is tolerating well prior to discharge home: Boost VHC - 360 mL (1.5 cartons) at 8a and 12p + 240 mL (1 carton) at 4p and 8p- do not use pump. Please give via syringe or gravity bag. Run each bolus over 2hrs - if well-tolerated run over 1hr. Water flushes 150 mL before and 150 mL after each TF bolus 2. [employer] was contacted today about providing homegoing TF education prior to dc - state they will provide education to family in the AM 06/16/24. Supplies have already been delivered to room. 3. MD - please place OP nutrition referral for follow-up/home TF management --> [id number] (specify enteral nutrition) in discharge orders. Theresa Cullen, NATHEN, LD, [facility] Personal Pager: [phone] On-Call Nutrition Pager: [phone] Time spent on patient care: 45 minutes Normal [facility] MAGNESIUMon 06-15-2024 Magnesium [Mass/Vol] 2.3 mg/dL 1.9 - 2 .7 mg/dL [facility] Magnesium [Mass/Vol] 2.3 mg/dL Normal 1.9-2.7 [facility] Comment on above: Performed By: #### C H8, MG, PHOS #### [facility] [address] [place] [address], [phone] No Panel Informationon 06-15 Interpretation and review of laboratory results Normal [facility] PHOSPHORUSon 06-15-2024 Phosphate [Mass/Vol] 4.3 mg/dL 2.5 - 5 .0 mg/dL [facility] Phosphate [Mass/Vol] 4.3 mg/dL Normal 2.5-5.0 [facility] Comment on above: Performed By: #### C H8, BETZAIDA FRY #### [facility] [address] [place], [phone] Progress Noteson 06-15-2024 [employer] Authentication Interface Message Text ENT Flap Check Subjective: Patient doing well. He has been up and out of bed, pain well controlled. Family at bedside with him. Objective: Vitals reviewed in EMR Gen: NAD, AOx3, resting comfortably in bed Face/Neck: All incisions c/d/i, neck soft and flat without evidence of hematoma or fluid collection -Skin paddle intraoral -External doppler with strong arterial signal -Trach in midline position without bleeding or thick tracheal secretions. 4.0 cuffless Shiley with cap on. Oral Cavity: All intraoral incisions c/d/i without evidence of dehiscence -Flap soft and pink with good capillary refill. Left edge of [place] tongue improving Extremities: left arm warm with intact movement and sensation -Left thigh skin graft donor site with dressing down, air drying until 7pm then eucerin/abel application Drains: neck drain in place and holding suction with serosanguinous drainage (stripped) Assessment/Plan: Quirino Cordero is a 74 yo male with tongue cancer, now s/p trach, resection of tongue SCCa, neck dissection, and reconstruction with radial forearm free tissue transfer and tracheostomy on 06/10/2024 -Continue nursing flap checks -Continue resident q12hr flap checks until 9/3 PM. Change to resident q24hr flap checks ENT [id number] Normal [facility] [employer] Authentication Interface Message Text -------- GENERAL INFORMATION ------- SURGICAL ICU - STAFF NOTE Patient seen and examined on 06/15/2024 Patient Name: Quirino Cordero Admission Date: 06/10/2024 ------ INTERVAL HISTORY/EVENTS ---- Background: 74 M pmh HLD, HTN, tongue SCCA now s/p trach, resection of tongue SCCa, neck dissection with radial forearm free flap reconstruction on 06/10. Admitted to ICU post op for airway monitoring and flap checks. Hospital Course: 06/10: Tracheostomy, resection of tongue SCCa, neck dissection with radial forearm free flap reconstruction with ENT (Latrice). Admitted to ICU post op for airway monitoring and flap checks. Tolerated trach collar overnight. 06/11: No acute events throughout the day. Initiated tube feeds -- tolerating well. Skilled for home by PT/OT. 06/12: Transitioned to PO pain meds. Q2H flap checks. Cervantes removed. A line removed. 06/13: Q3H flap checks. TF boluses started. No acute events overnight. 06/14: No acute events overnight. Straight catheterized this morning on rounds with 800cc output. Cardura added. 24 Hour Events: Cervantes placed for urinary retention. UO: 2250 + 1x occurrence Stool: 1x Drains: ROBERTH 1: 0 (17.5) ROBERTH 2: 5 (15) ROBERTH 3: 10 (40) PHYSICAL EXAM Vital Signs: Vital sign ranges over the past 24 hours (retrieved 06/15/2024 at 6:56 AM): Tmax (24 hours): 98.9 ???F (37.2 ???C) Pulse Av.9 Min: 64 Max: 109 Systolic (24hrs), Av , Min:119 , Max:164 Diastolic (24hrs), Av, Min:56, Max:97 MAP (mmHg) Av.8 mmHg Min: 73 mmHg Max: 117 mmHg Resp Av.5 Min: 11 Max: 30 SpO2 Av.4 % Min: 94 % Max: 100 % 24 Hour Input/Output In: 2575 (24.5 mL/kg) Out: 1565 (14.9 mL/kg) [Urine:1550 (0.6 mL/kg/hr); Drainage:15] Net: 1010 Weight: 105.2 kg PHYSICAL EXAM Constituational: No acute distress. Sitting up in bed. HEENT: Swollen tongue. Free flap intact. ROBERTH x 2 with serosanguinous output. Tracheostomy intact without drainage or bleeding. Neck incision c/d/I. Cardiovascular: Regular rate and rhythm. Pulmonary: No increased work of breathing On trach collar at 7L. Abdominal: Soft. Non-distended. Non-tender. Musculoskeletal: L forearm in are wrap. ROBERTH with serosanguinous output. LLE donor skin site with dressing in place without strikethrough Neurological: Alert, awake, and oriented x 3. Motor and sensory grossly intact. LABORATORY RESULTS (LAST 24 HOURS) CBC/PT/INR 06/15/2024 2:53 AM WBC 6.8 RBC 4.34 Hgb 13.0 Hct 39.9 MCV 92 RDW 15.1 Plt 193 Basic Metabolic Panel 06/15/2024 3:58 AM Na 141 K 4.6 Cl 108 CO2 23 Gap 15 Glu 104 BUN 30 Cr 0.99 Ca 8.6 Mg 2.3 PO4 4.3 IMAGING RESULTS (PERSONALLY REVIEWED) No imaging over the last 24 hours. --------- ASSESSMENT AND PLAN Diagnosis s/p tracheostomy tube placement, resection of tongue SCCa, neck dissection with radial forearm free flap reconstruction, and split thickness skin graft application: PMHx SCC of tongue MDD HTN HLD Plan: Neurological: - Tylenol 1000mg Q8H, 5/10mg oxycodone Q6H PRN and Dilauded 0.2mg for breakthrough pain. - Home buspar 10 mg daily HEENT: - Per ENT: -Q4H flap check and dopplers per nursing and Q6H ENT resident flap check -ROBERTH Drains to bulb suction; monitor output and strip q4H; plan to remove after POD3 when output appropriate -ASA 81 mg x 7 days per flap protocol -Bacitracin to incisions TID x 3 days, then switch to vaseline TID x 14 days -Chlorhexidine swabs to mouth by nursing - Vaseline for lips Cardiovascular: - Hemodynamically stable - Continue home ASA 81mg, Metoprolol 25mg BID, Atrovastatin 80mg Respiratory: - Tolerating trach collar - ENT postop recs: -6.0 cuffed Shiley -> 4.0 cuffless Shiley with cap this morning -Humidified trach collar at all times -Wean O2 as tolerated -Standard trach care/suctioning/teachi ng - Routine trach care - Keep plastic obturator (should be in small biohazard bag) in patient's room at all times in case of accidental decannulation. See ENT note for instructions. - Keep extra trach (6-0 cuffed Shiley) bedside for emergencies GI/Diet: -Strict NPO with TFs via DHT; Home bolus TF today. Nutrition following. -Zofran -PO trial when cleared by ENT -Senna BID Renal/Electrolytes: - LR @ 75mL/hr - Monitor UOP - Start Cardura for urinary retention - Daily BMP, Mg, Phos -- replete lytes PRN ID: - WBC 8.6 (7.5) - Surgical prophylaxis with Unasyn per primary (ends 06/14) Heme: - Hgb 13.6 (11.5), continue to monitor with daily CBCs. - Transfusion goal hgb >7 Endocrine: -No history of DMII; no active (more content not included)... Normal [facility] BASIC METABOLIC PANELon 09-0 -2023 Anion gap [Moles/Vol] 13 mmol/L Normal 10-20 [facility] Comment on above: Performed By: #### C H8, MG, PHOS #### [facility] [address], [place], Calcium [Mass/Vol] 8.8 mg/dL Normal 8.6-10.3 [facility] Comment on above: Performed By: #### C H8, MG, PHOS #### [facility] [address], [place], Chloride [Moles/Vol] 104 mmol/L Normal 98-107 [facility] Comment on above: Performed By: #### C H8, MG, PHOS #### [facility] [address], [place], CO2 [Moles/Vol] 24 mmol/L Normal 21-31 [facility] Comment on above: Performed By: #### C H8, MG, PHOS #### [facility] [address], [place], Creatinine [Mass/Vol] 0.85 mg/dL Normal 0.70-1.30 [facility] Comment on above: Performed By: #### Connor H8, MG, PHOS #### [facility] [address], [place], ESTIMATED GFR (CKD-EPI) 91 mL/min/1.73sqm Normal >=60 [facility] Comment on above: Result Comment: 2020 CKD EPI Equation using Creatinine without Race Comment: Estimated glomerular filtration rate (eGFR) is calculated without a race coefficient. Values should be interpreted in the context of the patient's full clinical presentation. Reference: 1. Bin C, Ronnie M, Arnol JOSE, et al.. A Unifying Approach for GFR Estimation: Recommendations of the NKF-ASN Task Force on Reassessing the Inclusion of Race in Diagnosing Kidney Disease. [place] Journal of Kidney Diseases 2021;79(2):268-88.e1. 2. N Engl J Med 1 Vol. 385 Issue 19 Pages [phone] Performed By: #### C H8, MG, PHOS #### [facility] [address], [place], Glucose [Mass/Vol] 108 mg/dL Normal 74-109 [facility] Comment on above: Performed By: #### C H8, MG, PHOS #### [facility] [address], [place], Potassium [Moles/Vol] 4.1 mmol/L Normal 3.5-5.0 [facility] Comment on above: Performed By: #### C H8, MG, PHOS #### [facility] [address], [place], Sodium [Moles/Vol] 137 mmol/L Normal 136-145 [facility] Comment on above: Performed By: #### C H8, MG, PHOS #### [facility] [address], [place], Urea nitrogen [Mass/Vol] 18 mg/dL Normal 7-25 [facility] Comment on above: Performed By: #### C H8, MG, PHOS #### [facility] [address], [place], Basic metabolic 2000 panelon 06-14-2024 Anion gap [Moles/Vol] 13 mmol/L 10 - [address] [facility] Calcium [Mass/Vol] 8.8 mg/dL 8.6 - 10. 3 mg/dL [facility] Chloride [Moles/Vol] 104 mmol/L 98 - 10 7 mmol/L [facility] CO2 [Moles/Vol] 24 mmol/L 21 - 31 mmol/L [facility] Creatinine [Mass/Vol] 0.85 mg/dL 0.70 - 1.30 mg/dL [facility] GFR/1.73 sq M.predicted CKD-EPI (S/P/Bld) [Vol rate/Area] 91 - PINF [facility] Comment on above: 2020 CKD EPI Equatio n using Creatinine without Race Comment: Estimated glomerular filtration rate (eGFR) is calculated without a race coefficient. Values should be interpreted in the context of the patient's full clinical presentation. Reference: 1. Bin Ryan, Ronnie M, Arnol JOSE, et al.. A Unifying Approach for GFR Estimation: Recommendations of the NKF-ASN Task Force on Reassessing the Inclusion of Race in Diagnosing Kidney Disease. [place] Journal of Kidney Diseases 202;79(2):268-88.e1. 2. N Engl J Med 1 Vol. 385 Issue 19 Pages 7133-2772 Glucose [Mass/Vol] 108 mg/dL 74 - 109 mg/dL [facility] Potassium [Moles/Vol] 4.1 mmol/L 3.5 - 5.0 mmol/L [facility] Sodium [Moles/Vol] 137 mmol/L 136 - 145 mmol/L [facility] Urea nitrogen [Mass/Vol] 18 mg/dL 7 - 25 mg/dL [facility] CBC panel Auto (Bld)on 06-14 Erythrocyte distribution width (RBC) [Ratio] 14.6 % High 11.5 - 14.5 % [facility] Hematocrit (Bld) [Volume fraction] 40.8 % Low 41.0 - 53.0 % [facility] Hemoglobin (Bld) [Mass/Vol] 13.6 g/dL Low 13.9 - 16.3 g/dL [facility] Interpretation and review of laboratory results Abnormal [facility] MCH (RBC) [Entitic mass] 30.6 pg 26.0 - 34.0 pg [facility] MCHC (RBC) [Mass/Vol] 33.4 g/dL 32.0 - 35.9 g/dL [facility] MCV (RBC) [Entitic vol] 92 fL 80 - 100 fL [facility] Platelet mean volume (Bld) [Entitic vol] 8.6 fL 7.5 - 11.2 fL [facility] Platelets (Bld) [#/Vol] 190 10*3/uL 150 - 400 K/uL [facility] RBC (Bld) [#/Vol] 4.46 10*6/uL Low [facility] WBC (Bld) [#/Vol] 8.6 10*3/uL 4.5 - 11.5 K/uL [facility] COMPLETE BLOOD COUNTon 06-14 Erythrocyte distribution width (RBC) [Ratio] 14.6 % High 11.5-14.5 [facility] Comment on above: Performed By: #### C MG Knutson PHOS #### [facility] [address] [place] [address], [phone] Hematocrit (Bld) [Volume fraction] 40.8 % Low 41.0-53.0 [facility] Comment on above: Performed By: #### MG Amparo, PHOS #### [facility] [address] [place] [address], Hemoglobin (Bld) [Mass/Vol] 13.6 g/dL Low 13.9-16.3 [facility] Comment on above: Performed By: #### MG Amparo, PHOS #### [facility] [address] [place] [address], MCH (RBC) [Entitic mass] 30.6 pg Normal 26.0-34.0 [facility] Comment on above: Performed By: #### MG Amparo, PHOS #### [facility] [address] [place] [address], MCHC (RBC) [Mass/Vol] 33.4 g/dL Normal 32.0-35.9 [facility] Comment on above: Performed By: #### MG Amparo, PHOS #### S [facility] [address] [place] [address], MCV (RBC) [Entitic vol] 92 fL Normal 80-100 T [facility] Comment on above: Performed By: #### MG Amparo, PHOS #### [facility] [address] [place] [address], Platelet mean volume (Bld) [Entitic vol] 8.6 fL Normal 7.5-11.2 [facility] Comment on above: Performed By: #### MG Amparo, PHOS #### [facility] [address] [place] [address], Platelets (Bld) [#/Vol] 190 10*3/uL Normal 150-400 [facility] Comment on above: Performed By: #### MG Amparo, PHOS #### [facility] [address] [place] [address], RBC (Bld) [#/Vol] 4.46 10*6/uL Low 4.50-5.90 [facility] Comment on above: Performed By: #### MG Amparo, PHOS #### [facility] [address] [place] [address], [place], WBC (Bld) [#/Vol] 8.6 10*3/uL Normal 4.5-11.5 [facility] Comment on above: Performed By: #### C MG Knutson PHOS #### [facility] [address], [place], Consultson 06-14-2024 [employer] Authentication Interface Message Text Physical Therapy Time in: 1020, time out: 1037 SUBJECTIVE: pt motivated to mobilize, no c/o OBJECTIVE: Pt. seen on 5w for 17 minutes for treatment as follows: Appearance/behavior: OOB in chair with [place] pressure alarm intact. Prior to and after rx, + trach, ICU montiors, doppler on plugged in, L short UE splint, surgical incisions, Pain: 0/10, Transfers: mod Independent without device Ambulation: mod Independent 300' without device, steady gait Stairs: deferred as pt with no stairs, pt deferred Patient education: pt and family about amb on unit at least 3x/day with assist for lines 06/14/2024 6 Clicks Basic Mobility PT Difficulty turning over in bed 4 Difficulty sitting down and standing up from a chair with arms 4 Difficulty moving from lying on back to sitting on the side of the bed 4 Help from another person moving to and from bed to a chair 4 Help from another person to walk in hospital room 4 Help from another person climbing 3-5 steps with a railing 3 PT 6 Clicks Score 23 6 Click Score Guidelines: 1 - Total = Requires total assistance, or cannot do at all. 2 - A lot = Requires a lot of help (maximun to moderate assistance) Can use assistive devices. 3 - A little = Requires a little help (supervision, minimal assistance) Can use assistive devices. 4 - None = Does not require any help and does the activity independently. Can use assistive devices.. ASSESMENT: pt mobilizing well/baseline, no pain. Met goals and ok for d/c home with family assist as needed. MET all goals Goals (to be achieved by 2 days or by discharge from acute care): Patient will achieve acceptable level of pain control to allow participation in therapy. Patient will increase bed mobility to modified independent Patient will perform sit to/from stand with no device with modified independent Patient will transfer bed to/from chair with no device with modified independent Patient will ambulate 150 feet with no device with modified independent Patient will increase ROM/Strength/Endurance /Balance to allow for above goals. PLAN: d/c PT Caitlyn Huang PT [phone] Normal [facility] MAGNESIUMon 06-14-2024 Magnesium [Mass/Vol] 2.1 mg/dL 1.9 - 2 .7 mg/dL [facility] Magnesium [Mass/Vol] 2.1 mg/dL Normal 1.9-2.7 [facility] Comment on above: Performed By: #### C H8, MG, PHOS #### [facility] [address], [place], No Panel Informationon 06-14 Interpretation and review of laboratory results Normal [facility] PHOSPHORUSon 06-14-2024 Phosphate [Mass/Vol] 3.2 mg/dL 2.5 - 5 .0 mg/dL [facility] Phosphate [Mass/Vol] 3.2 mg/dL Normal 2.5-5.0 [facility] Comment on above: Performed By: #### C H8, MG, PHOS #### [facility] [address], [place], Progress Noteson 06-14-2024 [employer] Authentication Interface Message Text Attestation signed by Garth Velázquez MD at 06/14/2024 4:45 PM I have personally seen and examined the patient with the team and nursing staff at the patient's bedside. I have reviewed recent data and reports. I have also reviewed lab values, imaging, and current medications profile. I discussed my findings with the team. I reviewed the full note by the resident with the detailed findings, and I agree with the assessment, overall impression, and plan of care. We have also updated the patient or any available family as well as other services with our care plan. Total Critical Care Time 35 minutes Garth Velázquez MD -------- GENERAL INFORMATION ------- SURGICAL ICU - STAFF NOTE Patient seen and examined on 06/14/2024 Patient Name: Quirino Cordero Admission Date: 06/10/2024 ------ INTERVAL HISTORY/EVENTS ---- Background: 74 M pmh HLD, HTN, tongue SCCA now s/p trach, resection of tongue SCCa, neck dissection with radial forearm free flap reconstruction on 06/10. Admitted to ICU post op for airway monitoring and flap checks. Hospital Course: 06/10: Tracheostomy, resection of tongue SCCa, neck dissection with radial forearm free flap reconstruction with ENT (Latrice). Admitted to ICU post op for airway monitoring and flap checks. Tolerated trach collar overnight. 06/11: No acute events throughout the day. Initiated tube feeds -- tolerating well. Skilled for home by PT/OT. 06/12: Transitioned to PO pain meds. Q2H flap checks. Cervantes removed. A line removed. 24 Hour Events: Q3H flap checks. TF boluses started. No acute events overnight. Straight catheterized this morning on rounds with 800cc output. UO: 750 + 5x occurrence Drains: ROBERTH 1: 17.5 (10) ROBERTH 2: 15 (10) ROBERTH 3: 40 (20) PHYSICAL EXAM Vital Signs: Vital sign ranges over the past 24 hours (retrieved 06/14/2024 at 12:23 PM): Tmax (24 hours): 98.6 ???F (37 ???C) Pulse Av.6 Min: 59 Max: 96 Systolic (24hrs), Av , Min:130 , Max:167 Diastolic (24hrs), Av, Min:75, Max:97 MAP (mmHg) Av.6 mmHg Min: 91 mmHg Max: 119 mmHg Resp Av.4 Min: 11 Max: 30 SpO2 Av.8 % Min: 92 % Max: 98 % 24 Hour Input/Output In: 1170 (11.1 mL/kg) [I.V.:50 (0 mL/kg/hr)] Out: 822.5 (7.8 mL/kg) [Urine:750 (0.3 mL/kg/hr); Drainage:72.5] Net: 347.5 Weight: 105.2 kg PHYSICAL EXAM Constituational: No acute distress. Sitting up in bed. HEENT: Free flap intact. ROBERTH x 2 with serosanguinous output. Tracheostomy intact without drainage or bleeding. Neck incision c/d/I. Cardiovascular: Regular rate and rhythm. Pulmonary: Clear to auscultation bilaterally. On trach collar. Abdominal: Soft. Non-distended. Non-tender. Musculoskeletal: L forearm in are wrap. ROBERTH with serosanguinous output. LLE donor skin site with dressing in place without strikethrough Neurological: Alert, awake, and oriented x 3. Motor and sensory grossly intact. LABORATORY RESULTS (LAST 24 HOURS) CBC/PT/INR 06/14/2024 5:04 AM WBC 8.6 RBC 4.46 Hgb 13.6 Hct 40.8 MCV 92 RDW 14.6 Plt 190 Basic Metabolic Panel 06/14/2024 06/14/2024 5:28 AM 5:04 AM Na -- 137 K -- 4.1 Cl -- 104 CO2 -- 24 Gap -- 13 Glu -- 108 BUN -- 18 Cr -- 0.85 Ca -- 8.8 Mg 2.1 -- PO4 3.2 -- IMAGING RESULTS (PERSONALLY REVIEWED) No imaging over the last 24 hours. --------- ASSESSMENT AND PLAN Diagnosis s/p tracheostomy tube placement, resection of tongue SCCa, neck dissection with radial forearm free flap reconstruction, and split thickness skin graft application: PMHx SCC of tongue MDD HTN HLD Plan: Neurological: - Tylenol 1000mg Q8H, 5/10mg oxycodone Q6H PRN and Dilauded 0.2mg for breakthrough pain. - Home buspar 10 mg daily HEENT: - Per ENT: -Q4H flap check and dopplers per nursing and Q6H ENT resident flap check -ROBERTH Drains to bulb suction; monitor output and strip q4H; plan to remove after POD3 when output appropriate -ASA 81 mg x 7 days per flap protocol -Bacitracin to incisions TID x 3 days, then switch to vaseline TID x 14 days -Chlorhexidine swabs to mouth by nursing - Vaseline for lips Cardiovascular: - Hemodynamically stable - Continue home ASA 81mg, Metoprolol 25mg BID, Atrovastatin 80mg Respiratory: - Tolerating trach collar - ENT postop recs: -6.0 cuffed Shiley -> tentative plan for trach change on POD 5 to 4.0 cuffless Shiley -Humidified trach collar at all times -Wean O2 as tolerated -Standard trac (more content not included)... Normal [facility] [employer] [facility] [employer] Authentication Interface Message Text Attestation signed by Garth Velázquez MD at 06/15/2024 8:53 AM I have personally seen and examined the patient with the team and nursing staff at the patient's bedside. I have reviewed recent data and reports. I have also reviewed lab values, imaging, and current medications profile. I discussed my findings with the team. I reviewed the full note by the resident with the detailed findings, and I agree with the assessment, overall impression, and plan of care. We have also updated the patient or any available family as well as other services with our care plan. Total Critical Care Time 35 minutes Garth Velázquez MD -------- GENERAL INFORMATION ------- SURGICAL ICU - STAFF NOTE Patient seen and examined on 06/14/2024 Patient Name: Quirino Cordero Admission Date: 06/10/2024 ------ INTERVAL HISTORY/EVENTS ---- Background: 74 M pmh HLD, HTN, tongue SCCA now s/p trach, resection of tongue SCCa, neck dissection with radial forearm free flap reconstruction on 06/10. Admitted to ICU post op for airway monitoring and flap checks. Hospital Course: 06/10: Tracheostomy, resection of tongue SCCa, neck dissection with radial forearm free flap reconstruction with ENT (Latrice). Admitted to ICU post op for airway monitoring and flap checks. Tolerated trach collar overnight. 06/11: No acute events throughout the day. Initiated tube feeds -- tolerating well. Skilled for home by PT/OT. 06/12: Transitioned to PO pain meds. Q2H flap checks. Cervantes removed. A line removed. 24 Hour Events: Q3H flap checks. TF boluses started. No acute events overnight. Straight catheterized this morning on rounds with 800cc output. UO: 750 + 5x occurrence Drains: ROBERTH 1: 17.5 (10) ROBERTH 2: 15 (10) ROBERTH 3: 40 (20) PHYSICAL EXAM Vital Signs: Vital sign ranges over the past 24 hours (retrieved 06/14/2024 at 6:42 AM): Tmax (24 hours): 98.2 ???F (36.8 ???C) Pulse Av.6 Min: 57 Max: 96 Systolic (24hrs), Av , Min:130 , Max:167 Diastolic (24hrs), Av, Min:75, Max:97 MAP (mmHg) Av.4 mmHg Min: 90 mmHg Max: 119 mmHg Resp Av.1 Min: 10 Max: 21 SpO2 Av.4 % Min: 92 % Max: 98 % 24 Hour Input/Output In: 2290 (21.8 mL/kg) [I.V.:750 (0.3 mL/kg/hr)] Out: 1097.5 (10.4 mL/kg) [Urine:1025 (0.4 mL/kg/hr); Drainage:72.5] Net: 1192.5 Weight: 105.2 kg PHYSICAL EXAM Constituational: No acute distress. Sitting up in bed. HEENT: Free flap intact. ROBERTH x 2 with serosanguinous output. Tracheostomy intact without drainage or bleeding. Neck incision c/d/I. Cardiovascular: Regular rate and rhythm. Pulmonary: Clear to auscultation bilaterally. On trach collar. Abdominal: Soft. Non-distended. Non-tender. Musculoskeletal: L forearm in are wrap. ROBERTH with serosanguinous output. LLE donor skin site with dressing in place without strikethrough Neurological: Alert, awake, and oriented x 3. Motor and sensory grossly intact. LABORATORY RESULTS (LAST 24 HOURS) CBC/PT/INR 06/14/2024 5:04 AM WBC 8.6 RBC 4.46 Hgb 13.6 Hct 40.8 MCV 92 RDW 14.6 Plt 190 Basic Metabolic Panel 06/14/2024 06/14/2024 5:28 AM 5:04 AM Na -- 137 K -- 4.1 Cl -- 104 CO2 -- 24 Gap -- 13 Glu -- 108 BUN -- 18 Cr -- 0.85 Ca -- 8.8 Mg 2.1 -- PO4 3.2 -- IMAGING RESULTS (PERSONALLY REVIEWED) No imaging over the last 24 hours. --------- ASSESSMENT AND PLAN Diagnosis s/p tracheostomy tube placement, resection of tongue SCCa, neck dissection with radial forearm free flap reconstruction, and split thickness skin graft application: PMHx SCC of tongue MDD HTN HLD Plan: Neurological: - Tylenol 1000mg Q8H, 5/10mg oxycodone Q6H PRN and Dilauded 0.2mg for breakthrough pain. - Home buspar 10 mg daily HEENT: - Per ENT: -Q4H flap check and dopplers per nursing and Q6H ENT resident flap check -ROBERTH Drains to bulb suction; monitor output and strip q4H; plan to remove after POD3 when output appropriate -ASA 81 mg x 7 days per flap protocol -Bacitracin to incisions TID x 3 days, then switch to vaseline TID x 14 days -Chlorhexidine swabs to mouth by nursing - Vaseline for lips Cardiovascular: - Hemodynamically stable - Continue home ASA 81mg, Metoprolol 25mg BID, Atrovastatin 80mg Respiratory: - Tolerating trach collar - ENT postop recs: -6.0 cuffed Shiley -> tentative plan for trach change on POD 5 to 4.0 cuffless Shiley -Humidified trach collar at all times -Wean O2 as tolerated -Stand (more content not included)... Normal [facility] BASIC METABOLIC PANELon 09-0 Anion gap [Moles/Vol] 12 mmol/L Normal 10-20 [facility] Comment on above: Performed By: #### MG Christensen PHOS #### [facility] [address] [place] [address], Calcium [Mass/Vol] 7.1 mg/dL Low 8.6-10.3 [facility] Comment on above: Performed By: #### MG Christensen PHOS #### [facility] [address] [place] [address], Chloride [Moles/Vol] 109 mmol/L High 98-107 [facility] Comment on above: Performed By: #### MG Christensen PHOS #### [facility] [address] [place] [address], CO2 [Moles/Vol] 21 mmol/L Normal 21-31 [facility] Comment on above: Performed By: #### MG Christensen PHOS #### [facility] [address] [place] [address], Creatinine [Mass/Vol] 0.69 mg/dL Low 0.70-1.30 [facility] Comment on above: Performed By: #### MG Christensen PHOS #### [facility] [address] [place] [address], ESTIMATED GFR (CKD-EPI) 97 mL/min/1.73sqm Normal >=60 [facility] Comment on above: Result Comment: 2020 CKD EPI Equation using Creatinine without Race Comment: Estimated glomerular filtration rate (eGFR) is calculated without a race coefficient. Values should be interpreted in the context of the patient's full clinical presentation. Reference: 1. Bin C, Ronnie M, Arnol DC, et al.. A Unifying Approach for GFR Estimation: Recommendations of the NKF-ASN Task Force on Reassessing the Inclusion of Race in Diagnosing Kidney Disease. [place] Journal of Kidney Diseases 2021;79(2):268-88.e1. 2. N Engl J Med 2020 Vol. 385 Issue 19 Pages 6590-8909 Performed By: #### MG Christensen PHOS #### [facility] [address], [place], Glucose [Mass/Vol] 110 mg/dL High 74-109 [facility] Comment on above: Performed By: #### MG Christensen PHOS #### [facility] [address], [place], Potassium [Moles/Vol] 4.3 mmol/L Normal 3.5-5.0 [facility] Comment on above: Result Comment: Hemo lysis present Performed By: #### MG Christensen PHOS #### [facility] [address], [place], Sodium [Moles/Vol] 138 mmol/L Normal 136-145 [facility] Comment on above: Performed By: #### MG Christensen PHOS #### [facility] [address], [place], Urea nitrogen [Mass/Vol] 16 mg/dL Normal 7-25 [facility] Comment on above: Performed By: #### MG Christensen PHOS #### [facility] [address] [place], [address] Basic metabolic 2000 panelon 06-13-2024 Anion gap [Moles/Vol] 12 mmol/L 10 - 20 [facility] Calcium [Mass/Vol] 7.1 mg/dL Low 8.6 - 10. 3 mg/dL [facility] Chloride [Moles/Vol] 109 mmol/L High 98 - 10 7 mmol/L [facility] CO2 [Moles/Vol] 21 mmol/L 21 - 31 mmol/L [facility] Creatinine [Mass/Vol] 0.69 mg/dL Low 0.70 - 1.30 mg/dL [facility] GFR/1.73 sq M.predicted CKD-EPI (S/P/Bld) [Vol rate/Area] 97 - PINF [facility] Comment on above: 2020 CKD EPI Equatio n using Creatinine without Race Comment: Estimated glomerular filtration rate (eGFR) is calculated without a race coefficient. Values should be interpreted in the context of the patient's full clinical presentation. Reference: 1. Bin C, Ronnie M, Arnol JOSE, et al.. A Unifying Approach for GFR Estimation: Recommendations of the NKF-ASN Task Force on Reassessing the Inclusion of Race in Diagnosing Kidney Disease. [place] Journal of Kidney Diseases 202;79(2):268-88.e1. 2. N Engl J Med 2020 Vol. 385 Issue 19 Pages 5532-9960 Glucose [Mass/Vol] 110 mg/dL High 74 - 109 mg/dL [facility] Potassium [Moles/Vol] 4.3 mmol/L 3.5 - 5.0 mmol/L [facility] Comment on above: Hemolysis present Sodium [Moles/Vol] 138 mmol/L 136 - 145 mmol/L [facility] Urea nitrogen [Mass/Vol] 16 mg/dL 7 - 25 mg/dL [facility] CBC panel Auto (Bld)on 06-13 Erythrocyte distribution width (RBC) [Ratio] 15.1 % High 11.5 - 14.5 % [facility] Hematocrit (Bld) [Volume fraction] 34.5 % Low 41.0 - 53.0 % [facility] Hemoglobin (Bld) [Mass/Vol] 11.5 g/dL Low 13.9 - 16.3 g/dL [facility] Interpretation and review of laboratory results Abnormal [facility] MCH (RBC) [Entitic mass] 30.8 pg 26.0 - 34.0 pg [facility] [Mass/Vol] 33.3 g/dL 32.0 - 35.9 g/dL [facility] MCV (RBC) [Entitic vol] 93 fL 80 - 100 fL [facility] Platelet mean volume (Bld) [Entitic vol] 9.1 fL 7.5 - 11.[address] [facility] Platelets (Bld) [#/Vol] 169 10*3/uL 150 - 400 K/uL [facility] RBC (Bld) [#/Vol] 3.72 10*6/uL Low [facility] WBC (Bld) [#/Vol] 7.5 10*3/uL 4.5 - 11.5 K/uL [facility] COMPLETE BLOOD COUNTon 06-13 Erythrocyte distribution width (RBC) [Ratio] 15.1 % High 11.5-14.5 [facility] Comment on above: Performed By: #### MG Amparo PHOS #### [facility] [address], [place], Hematocrit (Bld) [Volume fraction] 34.5 % Low 41.0-53.0 [facility] Comment on above: Performed By: #### MG Amparo PHOS #### [facility] [address], [place], Hemoglobin (Bld) [Mass/Vol] 11.5 g/dL Low 13.9-16.3 [facility] Comment on above: Performed By: #### Connor HMG Jonnathan, PHOS #### [facility] [address], [place], MCH (RBC) [Entitic mass] 30.8 pg Normal 26.0-34.0 [facility] Comment on above: Performed By: #### Connor H8 MG, PHOS #### [facility] [address], [place], MCHC (RBC) [Mass/Vol] 33.3 g/dL Normal 32.0-35.9 [facility] Comment on above: Performed By: #### MG Amparo, PHOS #### [facility] [address] [place] [address], MCV (RBC) [Entitic vol] 93 fL Normal 80-100 T [facility] Comment on above: Performed By: #### MG Amparo, PHOS #### [facility] [address] [place] [address], Platelet mean volume (Bld) [Entitic vol] 9.1 fL Normal 7.5-11.2 [facility] Comment on above: Performed By: #### MG Amparo, PHOS #### [facility] [address] [place] [address], Platelets (Bld) [#/Vol] 169 10*3/uL Normal 150-400 [facility] Comment on above: Performed By: #### MG Amparo, PHOS #### [facility] [address] [place] [address], RBC (Bld) [#/Vol] 3.72 10*6/uL Low 4.50-5.90 [facility] Comment on above: Performed By: #### MG Amparo, PHOS #### [facility] [address] [place] [address], WBC (Bld) [#/Vol] 7.5 10*3/uL Normal 4.5-11.5 [facility] Comment on above: Performed By: #### MG Amparo, PHOS #### [facility] [address] [place] [address], MAGNESIUMon 06-13-2024 Magnesium [Mass/Vol] 1.8 mg/dL Low 1.9 - 2 .7 mg/dL [facility] Comment on above: Hemolysis present Magnesium [Mass/Vol] 1.8 mg/dL Low 1.9-2.7 [facility] Comment on above: Result Comment: Hemo lysis present Performed By: #### MG Amparo, PHOS #### [facility] [address] [place] [address], No Panel Informationon 06-13 Interpretation and review of laboratory results Abnormal [facility] PHOSPHORUSon 06-13-2024 Interpretation and review of laboratory results Normal [facility] Phosphate [Mass/Vol] 2.8 mg/dL 2.5 - 5 .0 mg/dL [facility] Phosphate [Mass/Vol] 2.8 mg/dL Normal 2.5-5.0 [facility] Comment on above: Performed By: #### C H8, MG, PHOS #### [facility] [address], [place], Progress Noteson 06-13-2024 [employer] Authentication Interface Message Text ENT Flap Check Subjective: Patient doing well, sitting in chair. Pain controlled. Voiding independently without issue. Objective: Vitals reviewed in EMR Gen: NAD, AOx3, resting comfortably in bed Face/Neck: All incisions c/d/i, neck soft and flat without evidence of hematoma or fluid collection -Skin paddle intraoral well perfused and pink -External doppler with strong arterial signal -Trach in midline position without bleeding or thick tracheal secretions Oral Cavity: All intraoral incisions c/d/i without evidence of dehiscence -Flap soft and pink with good capillary refill. Left edge of [place] tongue with darker discoloration which is improved from prior exam, mild white plaques on superficial anterior [place] tongue Extremities: left arm warm with intact movement and sensation -Left thigh skin graft donor site with tegaderm in place Drains: All drains in place and holding suction with serosanguinous drainage (stripped) Assessment/Plan: Quirino Cordero is a 74 yo male with tongue cancer, now s/p trach, resection of tongue SCCa, neck dissection, and reconstruction with radial forearm free tissue transfer and tracheostomy on 06/10/2024 -Continue nursing flap checks -Continue q12hr flap checks -F/u void trial ENT [id number] Normal [facility] [facility] [employer] Authentication Interface Message Text -------- GENERAL INFORMATION ------- SURGICAL ICU - STAFF NOTE Patient seen and examined on 06/13/2024 Patient Name: Quirino Cordero Admission Date: 06/10/2024 ------ INTERVAL HISTORY/EVENTS ---- Background: 74 M pmh HLD, HTN, tongue SCCA now s/p trach, resection of tongue SCCa, neck dissection with radial forearm free flap reconstruction on 06/10. Admitted to ICU post op for airway monitoring and flap checks. Hospital Course: 06/10: Tracheostomy, resection of tongue SCCa, neck dissection with radial forearm free flap reconstruction with ENT (Latrice). Admitted to ICU post op for airway monitoring and flap checks. Tolerated trach collar overnight. 06/11: No acute events throughout the day. Initiated tube feeds -- tolerating well. Skilled for home by PT/OT. 06/12: Transitioned to PO pain meds. Q2H flap checks. Cervantes removed. A line removed. 24 Hour Events: Transitioned to PO pain meds. Q2H flap checks. Cervantes removed. A line removed. UO: 2275 Drains: ROBERTH 1: 10 (20) ROBERTH 2: 10 (35) ROBERTH 3: 20 (55) PHYSICAL EXAM Vital Signs: Vital sign ranges over the past 24 hours (retrieved 06/13/2024 at 7:49 AM): Tmax (24 hours): 98.7 ???F (37.1 ???C) Pulse Av.5 Min: 60 Max: 80 Systolic (24hrs), Av , Min:116 , Max:156 Diastolic (24hrs), Av, Min:61, Max:80 MAP (mmHg) Av.6 mmHg Min: 75 mmHg Max: 101 mmHg Resp Av.5 Min: 9 Max: 21 SpO2 Av.4 % Min: 89 % Max: 99 % 24 Hour Input/Output In: 3541.9 (33.7 mL/kg) [I.V.:2201.9 (0.9 mL/kg/hr)] Out: 2315 (22 mL/kg) [Urine:2275 (0.9 mL/kg/hr); Drainage:40] Net: 1226.9 Weight: 105.2 kg PHYSICAL EXAM Constituational: No acute distress. Sitting up in bed. HEENT: Free flap intact. ROBERTH x 2 with serosanguinous output. Tracheostomy intact without drainage or bleeding. Neck incision c/d/I. Cardiovascular: Regular rate and rhythm. Pulmonary: Clear to auscultation bilaterally. On trach collar. Abdominal: Soft. Non-distended. Non-tender. Musculoskeletal: L forearm in are wrap. ROBERTH with serosanguinous output. LLE donor skin site with dressing in place without strikethrough Neurological: Alert, awake, and oriented x 3. Motor and sensory grossly intact. LABORATORY RESULTS (LAST 24 HOURS) CBC/PT/INR 06/13/2024 5:31 AM WBC 7.5 RBC 3.72 Hgb 11.5 Hct 34.5 MCV 93 RDW 15.1 Plt 169 Basic Metabolic Panel 06/13/2024 5:52 AM Na 138 K 4.3 Cl 109 CO2 21 Gap 12 Glu 110 BUN 16 Cr 0.69 Ca 7.1 Mg 1.8 PO4 2.8 IMAGING RESULTS (PERSONALLY REVIEWED) No imaging over the last 24 hours. --------- ASSESSMENT AND PLAN Diagnosis s/p tracheostomy tube placement, resection of tongue SCCa, neck dissection with radial forearm free flap reconstruction, and split thickness skin graft application: PMHx SCC of tongue MDD HTN HLD Plan: Neurological: - Tylenol 1000mg Q8H, 5/10mg oxycodone Q6H PRN and Dilauded 0.2mg for breakthrough pain. - Home buspar 10 mg daily HEENT: - Per ENT: -Q2H flap check and dopplers per nursing and Q6H ENT resident flap check -ROBERTH Drains to bulb suction; monitor output and strip q4H; plan to remove after POD3 when output appropriate -ASA 81 mg x 7 days per flap protocol -Bacitracin to incisions TID x 3 days, then switch to vaseline TID x 14 days -Chlorhexidine swabs to mouth by nursing - Vaseline for lips Cardiovascular: - Hemodynamically stable - Continue home ASA 81mg, Metoprolol 25mg BID, Atrovastatin 80mg Respiratory: - Tolerating trach collar overnight on 4L 28% FiO2 - ENT postop recs: -6.0 cuffed Shiley -> tentative plan for trach change on POD 5 to 4.0 cuffless Shiley -Humidified trach collar at all times -Wean O2 as tolerated -Standard trach care/suctioning/teachi ng - Routine trach care - Keep plastic obturator (should be in small biohazard bag) in patient's room at all times in case of accidental decannulation. See ENT note for instructions. - Keep extra trach (6-0 cuffed Shiley) bedside for emergencies GI/Diet: -Strict NPO with TFs via DHT; Advance TF by 10mL/hr to goal of 70mL/hr. TF currently at 60mL/hr. Nutrition following. -Zofran -PO trial when cleared by ENT -Senna BID Renal/Electrolytes: - LR @ 75mL/hr - Monitor UOP - Daily BMP, Mg, Phos -- replete lytes PRN ID: - WBC 7.5 (9.3) - Surgical prophylaxis with Unasyn per primary (ends 06/14) Heme: - Hgb 11.5 (12.4), continue to monitor with daily CBCs. - Transfusion goal hgb >7 Endocrine: -No history of DMII; no active issues MSK: - PT: recommend him to be seen 3-5x/week - OT: recommend 1-3x/week - Bolster down/wo (more content not included)... Normal [facility] [facility] BASIC METABOLIC PANELon 08-3 Anion gap [Moles/Vol] 10 mmol/L Normal 10-20 [facility] Comment on above: Performed By: #### MG Amparo, PHOS #### [facility] [address] [place] [address], Calcium [Mass/Vol] 8.1 mg/dL Low 8.6-10.3 [facility] Comment on above: Performed By: #### MG Amparo, PHOS #### [facility] [address] [place] [address], Chloride [Moles/Vol] 107 mmol/L Normal 98-107 [facility] Comment on above: Performed By: #### MG Amparo, PHOS #### [facility] [address] [place] [address], CO2 [Moles/Vol] 26 mmol/L Normal 21-31 [facility] Comment on above: Performed By: #### MG Amparo, PHOS #### [facility] [address] [place] [address], Creatinine [Mass/Vol] 0.83 mg/dL Normal 0.70-1.30 [facility] Comment on above: Performed By: #### Connor Knutson MG, PHOS #### [facility] [address] [place] [address], ESTIMATED GFR (CKD-EPI) 91 mL/min/1.73sqm Normal >=60 [facility] Comment on above: Result Comment: 2020 CKD EPI Equation using Creatinine without Race Comment: Estimated glomerular filtration rate (eGFR) is calculated without a race coefficient. Values should be interpreted in the context of the patient's full clinical presentation. Reference: 1. Bin C, Ronine M, Arnol JOSE, et al.. A Unifying Approach for GFR Estimation: Recommendations of the NKF-ASN Task Force on Reassessing the Inclusion of Race in Diagnosing Kidney Disease. [place] Journal of Kidney Diseases 2021;79(2):268-88.e1. 2. N Engl J Med 1 Vol. 385 Issue 19 Pages 1178-3413 Performed By: #### Connor H8 MG, PHOS #### [facility] [address], [place], Glucose [Mass/Vol] 121 mg/dL High 74-109 [facility] Comment on above: Performed By: #### Connor H8 MG, PHOS #### [facility] [address], [place], Potassium [Moles/Vol] 4.1 mmol/L Normal 3.5-5.0 [facility] Comment on above: Performed By: #### Connor H8 MG, PHOS #### [facility] [address], [place], Sodium [Moles/Vol] 139 mmol/L Normal 136-145 [facility] Comment on above: Performed By: #### Connor H8, MG, PHOS #### [facility] [address], [place], Urea nitrogen [Mass/Vol] 20 mg/dL Normal 7-25 [facility] Comment on above: Performed By: #### Connor H8, MG, PHOS #### [facility] [address], [place], Basic metabolic 2000 panelon 06-12-2024 Anion gap [Moles/Vol] 10 mmol/L 10 - [address] [facility] Calcium [Mass/Vol] 8.1 mg/dL Low 8.6 - 10. 3 mg/dL [facility] Chloride [Moles/Vol] 107 mmol/L 98 - 10 7 mmol/L [facility] CO2 [Moles/Vol] 26 mmol/L 21 - 31 mmol/L [facility] Creatinine [Mass/Vol] 0.83 mg/dL 0.70 - 1.30 mg/dL [facility] GFR/1.73 sq M.predicted CKD-EPI (S/P/Bld) [Vol rate/Area] 91 - PINF [facility] Comment on above: 2020 CKD EPI Equatio n using Creatinine without Race Comment: Estimated glomerular filtration rate (eGFR) is calculated without a race coefficient. Values should be interpreted in the context of the patient's full clinical presentation. Reference: 1. Bni Ryan, Ronnie M, Arnol JOSE, et al.. A Unifying Approach for GFR Estimation: Recommendations of the NKF-ASN Task Force on Reassessing the Inclusion of Race in Diagnosing Kidney Disease. [place] Journal of Kidney Diseases 202;79(2):268-88.e1. 2. N Engl J Med 2020 Vol. 385 Issue 19 Pages 7243-4805 Glucose [Mass/Vol] 121 mg/dL High 74 - 109 mg/dL [facility] Potassium [Moles/Vol] 4.1 mmol/L 3.5 - 5.0 mmol/L [facility] Sodium [Moles/Vol] 139 mmol/L 136 - 145 mmol/L [facility] Urea nitrogen [Mass/Vol] 20 mg/dL 7 - 25 mg/dL [facility] CBC panel Auto (Bld)on 06-12 Erythrocyte distribution width (RBC) [Ratio] 14.8 % High 11.5 - 14.5 % [facility] Hematocrit (Bld) [Volume fraction] 36.9 % Low 41.0 - 53.0 % [facility] Hemoglobin (Bld) [Mass/Vol] 12.4 g/dL Low 13.9 - 16.3 g/dL [facility] Interpretation and review of laboratory results Abnormal [facility] MCH (RBC) [Entitic mass] 31.0 pg 26.0 - 34.0 pg [facility] MCHC (RBC) [Mass/Vol] 33.5 g/dL 32.0 - 35.9 g/dL [facility] MCV (RBC) [Entitic vol] 92 fL 80 - 100 fL [facility] Platelet mean volume (Bld) [Entitic vol] 8.2 fL 7.5 - 11.2 fL [facility] Platelets (Bld) [#/Vol] 162 10*3/uL 150 - 400 K/uL [facility] RBC (Bld) [#/Vol] 4.00 10*6/uL Low [facility] WBC (Bld) [#/Vol] 9.3 10*3/uL 4.5 - 11.5 K/uL [facility] COMPLETE BLOOD COUNTon 06-12 Erythrocyte distribution width (RBC) [Ratio] 14.8 % High 11.5-14.5 [facility] Comment on above: Performed By: #### C BC #### [facility] [address] [place] [address], Hematocrit (Bld) [Volume fraction] 36.9 % Low 41.0-53.0 [facility] Comment on above: Performed By: #### C BC #### [facility] [address] [place] [address], Hemoglobin (Bld) [Mass/Vol] 12.4 g/dL Low 13.9-16.3 [facility] Comment on above: Performed By: #### C BC #### [facility] [address] [place] [address], MCH (RBC) [Entitic mass] 31.0 pg Normal 26.0-34.0 [facility] Comment on above: Performed By: #### C BC #### [facility] [address] [place] [address], MCHC (RBC) [Mass/Vol] 33.5 g/dL Normal 32.0-35.9 [facility] Comment on above: Performed By: #### C BC #### [facility] [address] [place] [address], MCV (RBC) [Entitic vol] 92 fL Normal 80-100 T [facility] Comment on above: Performed By: #### C BC #### [facility] [address] [place] [address], Platelet mean volume (Bld) [Entitic vol] 8.2 fL Normal 7.5-11.2 [facility] Comment on above: Performed By: #### C BC #### [facility] [address] [place] [address], Platelets (Bld) [#/Vol] 162 10*3/uL Normal 150-400 [facility] Comment on above: Performed By: #### C BC #### [facility] [address], [place], RBC (Bld) [#/Vol] 4.00 10*6/uL Low 4.50-5.90 [facility] Comment on above: Performed By: #### C BC #### S PATHOLOGY LABORATORY [address], [place], WBC (Bld) [#/Vol] 9.3 10*3/uL Normal 4.5-11.5 [facility] Comment on above: Performed By: #### C BC #### [facility] [address], [place], MAGNESIUMon 06-12-2024 Interpretation and review of laboratory results Normal [facility] Magnesium [Mass/Vol] 1.9 mg/dL 1.9 - 2 .7 mg/dL [facility] Magnesium [Mass/Vol] 1.9 mg/dL Normal 1.9-2.7 [facility] Comment on above: Performed By: #### Connor H8, MG, PHOS #### [facility] [address], [place], No Panel Informationon 06-12 Interpretation and review of laboratory results Abnormal [facility] PHOSPHORUSon 06-12-2024 Phosphate [Mass/Vol] 2.3 mg/dL Low 2.5 - 5 .0 mg/dL [facility] Phosphate [Mass/Vol] 2.3 mg/dL Low 2.5-5.0 [facility] Comment on above: Performed By: #### Connor H8, MG, PHOS #### [facility] [address], [place], Progress Noteson 06-12-2024 Park [employer] Authentication Interface Message Text ENT Flap Check Subjective: Patient doing well, sitting in chair. Pain controlled. RN about to remove cervantes. Objective: Vitals reviewed in EMR Gen: NAD, AOx3, resting comfortably in bed Face/Neck: All incisions c/d/i, neck soft and flat without evidence of hematoma or fluid collection -Skin paddle intraoral well perfused and pink -External doppler with strong arterial signal -Trach in midline position without bleeding or thick tracheal secretions Oral Cavity: All intraoral incisions c/d/i without evidence of dehiscence -Flap soft and pink with good capillary refill. Left edge of chefornak tongue with darker discoloration. Extremities: left arm warm with intact movement and sensation -Left thigh skin graft donor site with tegaderm in place Drains: All drains in place and holding suction with serosanguinous drainage (stripped) Assessment/Plan: Quirino Cordero is a 74 yo male with tongue cancer, now s/p trach, resection of tongue SCCa, neck dissection, and reconstruction with radial forearm free tissue transfer and tracheostomy on 06/10/2024 -Continue nursing flap checks -Continue q12hr flap checks -F/u void trial ENT [id number] Normal [facility] [employer] Authentication Interface Message Text -------- GENERAL INFORMATION ------- SURGICAL ICU - STAFF NOTE Patient seen and examined on 06/12/2024 Patient Name: Quirino Cordero Admission Date: 06/10/2024 ------ INTERVAL HISTORY/EVENTS ---- Background: 74 M pmh HLD, HTN, tongue SCCA now s/p trach, resection of tongue SCCa, neck dissection with radial forearm free flap reconstruction. Admitted to ICU post op for airway monitoring and flap checks. Hospital Course: 06/10: Tracheostomy, resection of tongue SCCa, neck dissection with radial forearm free flap reconstruction with ENT (Latrice). Admitted to ICU post op for airway monitoring and flap checks. Tolerated trach collar overnight. 06/11: No acute events throughout the day. Initiated tube feeds -- tolerating well. Skilled for home by PT/OT. 24 Hour Events: No acute events in last 24 hours. No issues with flap checks. Tolerating continuous trach collar. UO: 1304 Drains: ROBERTH 1: 20 (10) ROBERTH 2: 35 (40) ROBERTH 3: 55 (70) PHYSICAL EXAM Vital Signs: Vital sign ranges over the past 24 hours (retrieved 06/12/2024 at 6:19 AM): Tmax (24 hours): 98.8 ???F (37.1 ???C) Pulse Av.8 Min: 53 Max: 95 Systolic (24hrs), Av , Min:140 , Max:194 Diastolic (24hrs), Av, Min:58, Max:80 MAP (mmHg) Av.6 mmHg Min: 80 mmHg Max: 106 mmHg Resp Av.7 Min: 8 Max: 28 SpO2 Av.8 % Min: 93 % Max: 100 % 24 Hour Input/Output In: 2668.8 (25.4 mL/kg) [I.V.:2178.8 (0.9 mL/kg/hr)] Out: 4 (19.5 mL/kg) [Urine:1864 (0.7 mL/kg/hr); Drainage:190] Net: 614.8 Weight: 105.2 kg PHYSICAL EXAM Constituational: No acute distress. HEENT: Free flap intact. ROBERTH x 2 with serosanguinous output. Tracheostomy intact without drainage or bleeding. Neck incision c/d/I. Cardiovascular: Regular rate and rhythm. Pulmonary: Clear to auscultation bilaterally. On trach collar. Abdominal: Soft. Non-distended. Non-tender. Musculoskeletal: L forearm in are wrap. ROBERTH with serosanguinous output. LLE donor skin site with dressing in place without strikethrough Neurological: Alert, awake, and oriented x 3. Motor and sensory grossly intact. : concentrated urine in cervantes bag. LABORATORY RESULTS (LAST 24 HOURS) CBC/PT/INR 06/12/2024 4:29 AM WBC 9.3 RBC 4.00 Hgb 12.4 Hct 36.9 MCV 92 RDW 14.8 Plt 162 Basic Metabolic Panel 06/12/2024 4:29 AM Na 139 K 4.1 Cl 107 CO2 26 Gap 10 Glu 121 BUN 20 Cr 0.83 Ca 8.1 Mg 1.9 PO4 2.3 IMAGING RESULTS (PERSONALLY REVIEWED) No imaging over the last 24 hours. --------- ASSESSMENT AND PLAN Diagnosis s/p tracheostomy tube placement, resection of tongue SCCa, neck dissection with radial forearm free flap reconstruction, and split thickness skin graft application: PMHx SCC of tongue MDD HTN HLD Plan: Neurological: - Discontinue [employer]YWALL [employer]OR and transition to 5/10mg oxycodone Q6H PRN and Dilauded 0.2mg for breakthrough pain. - Tylenol 1000mg Q8H - Home buspar 10 mg daily HEENT: - Per ENT: -Q2H flap check and dopplers per nursing and Q6H ENT resident flap check -ROBERTH Drains to bulb suction; monitor output and strip q4H; plan to remove after POD3 when output appropriate -ASA 81 mg x 7 days per flap protocol -Bacitracin to incisions TID x 3 days, then switch to vaseline TID x 14 days -Chlorhexidine swabs to mouth by nursing - Vaseline for lips Cardiovascular: - Hemodynamically stable - Continue home ASA 81mg, Metoprolol 25mg BID, Atrovastatin 80mg Respiratory: - Tolerating trach collar overnight on 8L 50% FiO2 - ENT postop recs: -6.0 cuffed Shiley -> tentative plan for trach change on POD 5 to 4.0 cuffless Shiley -Humidified trach collar at all times -Wean O2 as tolerated -Standard trach care/suctioning/teachi ng - Routine trach care - Keep plastic obturator (should be in small biohazard bag) in patient's room at all times in case of accidental decannulation. See ENT note for instructions. - Keep extra trach (6-0 cuffed Shiley) bedside for emergencies GI/Diet: -Strict NPO with TFs via DHT; Advance TF by 10mL/hr to goal of 70mL/hr. Eventually will be bolus TF. Nutrition following. -Zofran -PO trial when cleared by ENT -Senna BID; add docusate and Miralax after POD 3 if no BM Renal/Electrolytes: - Remove cervantes - LR @ 75mL/hr - Monitor UOP - Daily BMP, Mg, Phos -- replete lytes PRN ID: - WBC 9.3 - surgical prophylaxis with Unasyn per primary Heme: - Hgb 12.4 - Transfusion goal hgb >7 Endocrine: -No history of DMII; no active issues MSK: - PT: recommend him to be seen 3-5x/week - OT: recommend 1-3x/week - Bolster down/wound va (more content not included)... Normal [facility] BASIC METABOLIC PANELon 08-3 0-2023 Anion gap [Moles/Vol] 11 mmol/L Normal 10-20 [facility] Comment on above: Performed By: #### Connor HJonnathan MG, PHOS #### [facility] [address] [place] [address], Calcium [Mass/Vol] 8.9 mg/dL Normal 8.6-10.3 [facility] Comment on above: Performed By: #### Connor H8, MG, PHOS #### [facility] [address], [place], Chloride [Moles/Vol] 107 mmol/L Normal 98-107 [facility] Comment on above: Performed By: #### Connor H8, MG, PHOS #### [facility] [address], [place], CO2 [Moles/Vol] 25 mmol/L Normal 21-31 [facility] Comment on above: Performed By: #### MG Amparo PHOS #### [facility] [address], [place], Creatinine [Mass/Vol] 1.10 mg/dL Normal 0.70-1.30 [facility] Comment on above: Performed By: #### Connor Knutson MG, PHOS #### [facility] [address], [place], ESTIMATED GFR (CKD-EPI) 70 mL/min/1.73sqm Normal >=60 [facility] Comment on above: Result Comment: 2020 CKD EPI Equation using Creatinine without Race Comment: Estimated glomerular filtration rate (eGFR) is calculated without a race coefficient. Values should be interpreted in the context of the patient's full clinical presentation. Reference: 1. Bin Ryan, Ronnie M, Arnol JOSE, et al.. A Unifying Approach for GFR Estimation: Recommendations of the NKF-ASN Task Force on Reassessing the Inclusion of Race in Diagnosing Kidney Disease. [place] Journal of Kidney Diseases 2021;79(2):268-88.e1. 2. N Engl J Med 2020 Vol. 385 Issue 19 Pages 1254-6744 Performed By: #### MG Amparo PHOS #### [facility] [address], [place], Glucose [Mass/Vol] 148 mg/dL High 74-109 [facility] Comment on above: Performed By: #### Connor Knutson MG, PHOS #### [facility] [address], [place], Potassium [Moles/Vol] 4.1 mmol/L Normal 3.5-5.0 [facility] Comment on above: Performed By: #### Connor Knutson MG, PHOS #### [facility] [address], [place], Sodium [Moles/Vol] 139 mmol/L Normal 136-145 [facility] Comment on above: Performed By: #### Connor H8 MG, PHOS #### [facility] [address], [place], Urea nitrogen [Mass/Vol] 25 mg/dL Normal 7-25 [facility] Comment on above: Performed By: #### C H8, BETZAIDA FRY #### [facility] [address] [place], [id number] Basic metabolic 2000 panelon 06-11-2024 Anion gap [Moles/Vol] 11 mmol/L 10 - 20 [facility] Calcium [Mass/Vol] 8.9 mg/dL 8.6 - 10. 3 mg/dL [facility] Chloride [Moles/Vol] 107 mmol/L 98 - 10 7 mmol/L [facility] CO2 [Moles/Vol] 25 mmol/L 21 - 31 mmol/L [facility] Creatinine [Mass/Vol] 1.10 mg/dL 0.70 - 1.30 mg/dL [facility] GFR/1.73 sq M.predicted CKD-EPI (S/P/Bld) [Vol rate/Area] 70 - PINF [facility] Comment on above: 2020 CKD EPI Equatio n using Creatinine without Race Comment: Estimated glomerular filtration rate (eGFR) is calculated without a race coefficient. Values should be interpreted in the context of the patient's full clinical presentation. Reference: 1. Bin C, Barenee M, Arnol DC, et al.. A Unifying Approach for GFR Estimation: Recommendations of the NKF-ASN Task Force on Reassessing the Inclusion of Race in Diagnosing Kidney Disease. [place] Journal of Kidney Diseases 202;79(2):268-88.e1. 2. N Engl J Med 1 Vol. 385 Issue 19 Pages 3851-1220 Glucose [Mass/Vol] 148 mg/dL High 74 - 109 mg/dL [facility] Potassium [Moles/Vol] 4.1 mmol/L 3.5 - 5.0 mmol/L [facility] Sodium [Moles/Vol] 139 mmol/L 136 - 145 mmol/L [facility] Urea nitrogen [Mass/Vol] 25 mg/dL 7 - 25 mg/dL [facility] CBC panel Auto (Bld)on 06-11 Erythrocyte distribution width (RBC) [Ratio] 15.1 % High 11.5 - 14.5 % [facility] Hematocrit (Bld) [Volume fraction] 36.6 % Low 41.0 - 53.0 % [facility] Hemoglobin (Bld) [Mass/Vol] 12.2 g/dL Low 13.9 - 16.3 g/dL [facility] Interpretation and review of laboratory results Abnormal [facility] MCH (RBC) [Entitic mass] 30.8 pg 26.0 - 34.[address] [facility] MCHC (RBC) [Mass/Vol] 33.4 g/dL 32.0 - 35.9 g/dL [facility] MCV (RBC) [Entitic vol] 92 fL 80 - [address] [facility] Platelet mean volume (Bld) [Entitic vol] 8.3 fL 7.5 - 11.[address] [facility] Platelets (Bld) [#/Vol] 173 10*3/uL 150 - 400 K/uL [facility] RBC (Bld) [#/Vol] 3.97 10*6/uL Low [facility] WBC (Bld) [#/Vol] 9.8 10*3/uL 4.5 - 11.5 K/uL [facility] COMPLETE BLOOD COUNTon 06-11 Erythrocyte distribution width (RBC) [Ratio] 15.1 % High 11.5-14.5 [facility] Comment on above: Performed By: #### MG Amparo PHOS #### [facility] [address] [place] [address], Hematocrit (Bld) [Volume fraction] 36.6 % Low 41.0-53.0 [facility] Comment on above: Performed By: #### MG Amparo PHOS #### [facility] [address] [place] [address], Hemoglobin (Bld) [Mass/Vol] 12.2 g/dL Low 13.9-16.3 [facility] Comment on above: Performed By: #### MG Amprao PHOS #### [facility] [address] [place] [address], MCH (RBC) [Entitic mass] 30.8 pg Normal 26.0-34.0 [facility] Comment on above: Performed By: #### Connor HJonnathan MG, PHOS #### [facility] [address] [place] [address], MCHC (RBC) [Mass/Vol] 33.4 g/dL Normal 32.0-35.9 [facility] Comment on above: Performed By: #### MG Amparo, PHOS #### [facility] [address] [place] [address], MCV (RBC) [Entitic vol] 92 fL Normal 80-100 [facility] Comment on above: Performed By: #### MG Amparo, PHOS #### [facility] [address] [place] [address], Platelet mean volume (Bld) [Entitic vol] 8.3 fL Normal 7.5-11.2 [facility] Comment on above: Performed By: #### MG Amparo, PHOS #### [facility] [address] [place] [address], Platelets (Bld) [#/Vol] 173 10*3/uL Normal 150-400 [facility] Comment on above: Performed By: #### MG Amparo, PHOS #### [facility] [address] [place] [address], RBC (Bld) [#/Vol] 3.97 10*6/uL Low 4.50-5.90 [facility] Comment on above: Performed By: #### MG Amparo, PHOS #### [facility] [address] [place] [address], WBC (Bld) [#/Vol] 9.8 10*3/uL Normal 4.5-11.5 [facility] Comment on above: Performed By: #### MG Amparo, PHOS #### [facility] [address] [place] [address], Consultson 06-11-2024 [employer] Authentication Interface Message Text Initial Adult Inpatient Nutrition Assessment Reason for Visit: Consult - s/p tongue SCCa resection with forearm free flap Nutrition Assessment: Admitting Diagnosis: 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 Past Surgical History: Procedure Laterality Date DISSECTION, RADICAL NECK, FREE FLAP N/A 06/10/2024 Procedure: PARTIAL GLOSSECTOMY, TRACHEOSTOMY, NECK DISSECTION; Surgeon: Clayton Villarreal MD; Location: PERIOPERATIVE SERVICES; Service: Otolaryngology DISSECTION, RADICAL NECK, MODIFIED N/A 06/10/2024 Procedure: LEFT RADIAL FOREARM FREE FLAP, SPLIT THICKNESS SKIN GRAFT FROM THIGH; Surgeon: Giorgio Mi MD; Location: PERIOPERATIVE SERVICES; Service: Otolaryngology ESOPHAGOSCOPY RIGID N/A 06/10/2024 Procedure: ESOPHAGOSCOPY RIGID; Surgeon: Giorgio Mi MD; Location: PERIOPERATIVE SERVICES; Service: Otolaryngology LARYNGOSCOPY N/A 06/10/2024 Procedure: LARYNGOSCOPY, DIRECT; Surgeon: Giorgio Mi MD; Location: PERIOPERATIVE SERVICES; Service: Otolaryngology has No Known Allergies. Labs: Basic Metabolic Panel 06/11/2024 06/10/2024 06/10/2024 06/10/2024 5:31 AM 8:21 PM 1:48 PM 9:12 AM Na 139 141 141 142 K 4.1 4.6 3.9 4.0 Cl 107 107 110 107 CO2 25 25 -- -- Gap 11 14 -- -- Glu 148 149 143 142 BUN 25 24 -- -- Cr 1.10 1.22 -- -- Ca 8.9 9.1 -- -- Mg 1.8 1.6 -- -- PO4 3.8 4.0 -- -- CBC (last 3 years, up to 8 values) 06/11/2024 06/10/2024 06/10/2024 06/10/2024 05/26/2024 4:42 AM 8:04 PM 1:48 PM 9:12 AM 8:16 AM WBC 9.8 10.4 -- -- 8.5 RBC 3.97 4.42 -- -- 5.30 Hgb 12.2 13.3 12.7 14.1 16.4 Hct 36.6 40.6 39.0 43.2 49.8 MCV 92 92 -- -- 94 RDW 15.1 14.9 -- -- 15.1 Plt 173 160 -- -- 148 LFT's (last 3 years, up to 8 values) No lab values to display. Lipids (last 3 years, up to 8 values) No lab values to display. Arterial Blood Gases T Site Mode LPM FIO2 pH pCO2 pO2 Sat Base Ex HCO3- A-a 06/10/24 1348 22 06/10/24 1348 7.407 35.9 115 98.2 -1.6 22 No results found for: HBA1C Accuchecks: Fingerstick Glucose (last 72 hours) None No results found for: B12 No results found for: FOL No results found for: FE No results found for: VITD25 No results found for: ZINC Vital sign ranges over the past 24 hours (retrieved 06/11/2024 at 10:50 AM): Tmax (24 hours): 99.3 ???F (37.4 ???C) Pulse Av.4 Min: 53 Max: 101 Systolic (24hrs), Av , Min:132 , Max:168 Diastolic (24hrs), Av, Min:54, Max:85 MAP (mmHg) Av.5 mmHg Min: 77 mmHg Max: 104 mmHg Resp Av.3 Min: 12 Max: 29 SpO2 Av.7 % Min: 85 % Max: 100 % Most Recent Ventilator Settings: FiO2 (%): 50 LastBM: none yet Nutritionally Significant Meds: heparin (porcine), 5,000 Units, Subcutaneous, Every End of Shift busPIRone, 10 mg, Oral, Daily atorvastatin, 80 mg, Oral, Every evening senna, 5 mL, Oral, At Bedtime acetaminophen, 1,000 mg, NG Tube, Every 8 hours chlorhexidine oral care kit with toothette, 15 mL, Oral, EVERY 12 HOURS ampicillin-sulbactam, 3,000 mg, Intravenous, Q6H Antibiotic bacitracin, , Topical, 3x Daily aspirin, 81 mg, NG Tube, Daily metoprolol, 25 mg, NG Tube, BID [START ON 06/13/2024] vitamin A AND D, , Topical, 3x Daily Tube feed, , Last Rate: 20 mL/hr at 06/10/24 2030 HYDROmorphone, lactated ringers, , Last Rate: 75 mL/hr at 06/11/24 0900 Diet Order: NPO Nutrition Focused Physical Exam Muscle loss: Confucianism region: well defined Clavicle region: not visible/not prominent Scapula region: no depressions Hand: muscle bulges Anterior thigh: well rounded Posterior calf: well developed Fat loss: Orbital region: bulged fat pads Tricep/bicep region: ample fat tissue Rib/back region: chest full/ribs do not show Edema: tongue, oral nonpitting Hair/Nails/Skin: trach, oral, L arm surgical sites, ROBERTH drains x3 Eyes/Nose/Mouth: corpak Height: Data Unavailable 67 inches Admit Weight: 105.2 kg Current Weight: 105.2 kg IBW: 67.3 kg Current BMI: 36.34 Weight hx: Kg Lbs 05/11/2024 1:09 PM 107.094 kg 236 lb 1.6 oz 05/26/2024 8:32 AM 105.235 kg 232 lb 05/26/2024 9:17 AM 105.28 kg 232 lb 1.6 oz 06/10/2024 6:47 AM 105.235 kg 232 lb Estimated needs: using admit wt [id number] kcal/d 25-30 kcal/kg [MSJ 1750 saravanan] 135g pro/d 2 g pro/kg of ibw 2600 mL/d 25 mL/kg Assessment: 74 yo male w/ pmh of HLD, HTN, tongue SCC, oral dysphagia now s/p trach, resection of tongue SCCa, neck dissection with radial forearm free flap reconstruction w/ STSG [Dr Villarreal 06/10/2024]. 06/10 Admitted to SICU post op for airway monitoring and flap checks; Trach collar; NPO; LR @75 06/11 Trickle TF started - pivot 1.5 @ 20 mL/hr Met with pt bedside. Pts son, daughter, and also present during this visit. Briefly reviewed nutrition plan in acute setting and transition out of hospital with feeding tube should this become indicated. TF noted to be running at 20 mL/hr - pt communicat (more content not included)... Normal [facility] MAGNESIUMon 06-11-2024 Magnesium [Mass/Vol] 1.8 mg/dL Low 1.9 - 2 .7 mg/dL [facility] Magnesium [Mass/Vol] 1.8 mg/dL Low 1.9-2.7 [facility] Comment on above: Performed By: #### C H8, MGBETZAIDA #### [facility] [address], [place], No Panel Informationon 06-11 Interpretation and review of laboratory results Abnormal [facility] 06-11-2024 Interpretation and review of laboratory results Normal [facility] Phosphate [Mass/Vol] 3.8 mg/dL 2.5 - 5 .0 mg/dL [facility] Phosphate [Mass/Vol] 3.8 mg/dL Normal 2.5-5.0 [facility] Comment on above: Performed By: #### C H8, MG, PHOS #### [facility] [address], [place], Progress Noteson 06-11-2024 [employer] Authentication Interface Message Text Social Work ICU Note Aware of PT/OT reccs for home going. If pt requires Tube feeds at DC-- dietitian to arrange as appropriate. If pt requires tracheostomy supplies at DC-- team to please order as necessary. Home Trach Supplies: Suction pump, home model portable (E0600) Trachel suction tube (A4624) Size: (Please indicate size of Yankauer) Canister, disposable, for pump (A7000) Tubing used w/[id number] pump (A7002) Oropharyngeal suction cath, each (A4628) 50 PSI Compressor (E0565) Trach size (indicate size here) cuffless shiley, 2 per month (E1399) Large velcro ties, 4 per month (E1399) Saline bottle, 1 Liter, 2 per week (8 per month) *Not a DME order, to be prescribed as a medication order* 1-5 delivered the bedside 6-8 delivered to the home once patient is home 9 to be filled at pharmacy IF SUCTION MACHINE IS BEING ORDERED MDS TO PLEASE ORDER, USING 'DME SUCTION MACHINE ORDER SET. This order will populate everything except the 50 PSI compressor as that is its own order (E0565) as noted above. SW or CM will follow-up with pt as able for offer of HHC services to assist with TF/trach care management. CM to assist if pt transitions off 5W. Darling Ch, ASHLEYA, AIRPLANE CLEANER Normal [facility] [employer] Authentication Interface Message Text ENT Flap Check Subjective: Patient doing well, laying in bed with family in the room. He has been up and out of bed, pain fairly well controlled. Objective: Vitals reviewed in EMR Gen: NAD, AOx3, resting comfortably in bed Face/Neck: All incisions c/d/i, neck soft and flat without evidence of hematoma or fluid collection -Skin paddle intraoral -External doppler with strong arterial signal -Trach in midline position without bleeding or thick tracheal secretions Oral Cavity: All intraoral incisions c/d/i without evidence of dehiscence -Flap soft and pink with good capillary refill. Left edge of chefornak tongue with darker discoloration. Extremities: left arm warm with intact movement and sensation -Left thigh skin graft donor site with tegaderm in place Drains: All drains in place and holding suction with serosanguinous drainage (stripped) Assessment/Plan: Quirino Cordero is a 74 yo male with tongue cancer, now s/p trach, resection of tongue SCCa, neck dissection, and reconstruction with radial forearm free tissue transfer and tracheostomy on 06/10/2024 -Continue nursing flap checks -Continue q6hr flap checks until 9 PM ENT [id number] Normal [facility] [employer] Authentication Interface Message Text -------- GENERAL INFORMATION ------- SURGICAL ICU - STAFF NOTE Patient seen and examined on 06/11/2024 Patient Name: Quirino Cordero Admission Date: 06/10/2024 ------ INTERVAL HISTORY/EVENTS ---- Background: 74 M pmh HLD, HTN, tongue SCCA now s/p trach, resection of tongue SCCa, neck dissection with radial forearm free flap reconstruction. Admitted to ICU post op for airway monitoring and flap checks. Hospital Course: 06/10: Tracheostomy, resection of tongue SCCa, neck dissection with radial forearm free flap reconstruction with ENT (Latrice). Admitted to ICU post op for airway monitoring and flap checks. Tolerated trach collar overnight. 24 Hour Events: OR yesterday with ENT for tracheostomy tube placement, resection of tongue SCCa, neck dissection with radial forearm free flap reconstruction, and split thickness skin graft application. Admitted to ICU post op for airway monitoring and flap checks. EBL: 200cc Fluid replacement: 500cc albumin, 3.8L IVF UO: 1914 Drains: ROBERTH 1 10 ROBERTH 2 40 ROBERTH 3 70 PHYSICAL EXAM Vital Signs: Vital sign ranges over the past 24 hours (retrieved 06/11/2024 at 6:49 AM): Tmax (24 hours): 99.3 ???F (37.4 ???C) Pulse Av.2 Min: 66 Max: 101 Systolic (24hrs), Av , Min:132 , Max:168 Diastolic (24hrs), Av, Min:54, Max:85 MAP (mmHg) Av.8 mmHg Min: 77 mmHg Max: 104 mmHg Resp Av.8 Min: 13 Max: 29 SpO2 Av.6 % Min: 85 % Max: 100 % 24 Hour Input/Output In: 5054.6 (48 mL/kg) [I.V.:4974.6 (2 mL/kg/hr)] Out: 1555 (14.8 mL/kg) [Urine:1355 (0.5 mL/kg/hr)] Net: 3499.6 Weight: 105.2 kg PHYSICAL EXAM Constituational: No distress. HEENT: Free flap intact. ROBERTH x 2 with serosanguinous output. Tracheostomy intact without drainage or bleeding Cardiovascular: Regular rate and rhythm. Pulmonary: Clear to auscultation bilaterally. On trach collar. Abdominal: Soft. Non-distended. Non-tender. Musculoskeletal: L forearm in are wrap. ROBERTH with serosanguinous output. LLE donor skin site with dressing in place without strikethrough Neurological: Alert, awake, and oriented x 3. Motor and sensory grossly intact. LABORATORY RESULTS (LAST 24 HOURS) CBC/PT/INR 06/11/2024 06/10/2024 06/10/2024 06/10/2024 4:42 AM 8:04 PM 1:48 PM 9:12 AM WBC 9.8 10.4 -- -- RBC 3.97 4.42 -- -- Hgb 12.2 13.3 12.7 14.1 Hct 36.6 40.6 39.0 43.2 MCV 92 92 -- -- RDW 15.1 14.9 -- -- Plt 173 160 -- -- Basic Metabolic Panel 06/11/2024 06/10/2024 06/10/2024 06/10/2024 5:31 AM 8:21 PM 1:48 PM 9:12 AM Na 139 141 141 142 K 4.1 4.6 3.9 4.0 Cl 107 107 110 107 CO2 25 25 -- -- Gap 11 14 -- -- Glu 148 149 143 142 BUN 25 24 -- -- Cr 1.10 1.22 -- -- Ca 8.9 9.1 -- -- Mg 1.8 1.6 -- -- PO4 3.8 4.0 -- -- Arterial Blood Gases T Site Mode LPM FIO2 pH pCO2 pO2 Sat Base Ex HCO3- A-a 06/10/24 1348 22 06/10/24 1348 7.407 35.9 115 98.2 -1.6 22 06/10/24 0912 24 06/10/24 0912 7.350 44.2 131 98.6 -1.4 24 Fingerstick Glucose None IMAGING RESULTS (PERSONALLY REVIEWED) KUB IMPRESSION: 1. Enteric tube projects over the mid stomach region. Consider advancement prior to being used for feeding. 2. Nonobstructive bowel gas pattern. 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 then transition to oxycodone Q6H PRN - Tylenol 1000mg Q8H - Home buspar 10 mg daily HEENT: - Per ENT: -Q1H flap check and dopplers per nursing and Q6H resident flap check -ROBERTH Drains to bulb suction; monitor output and strip q4H; plan to remove after POD3 when output appropriate -ASA 81 mg x 7 days per flap protocol -Bacitracin to incisions TID x 3 days, then switch to vaseline TID x 14 days Cardiovascular: - On ASA 81mg at home at baseline -- also being used for new flap - Continue additional home medications: Metoprolol 25mg BID, Atrovastatin 80mg Respiratory: - Tolerating trach collar overnight on 10L 50% FiO2 - ENT postop recs: -6.0 cuffed Shiley -> tentative plan for trach change on POD 5 to 4.0 cuffless Shiley -Humidified trach collar at all times -Wean O2 as tolerated -Standard trach care/suctioning/teachi ng - Routine trach care - Keep plastic obturator (should be in small biohazard bag) in patient's room at all times in case of accidental decannulation. See ENT note for instructions. - Keep extra trach (6-0 cuffed Shiley) bedside for emergen (more content not included)... Normal [facility] Anesthesia Postprocedure Perla snyder 06-10-2024 [employer] Authentication Interface Message Text Anesthesia Postoperative Assessment: Vital Signs (most recent): BP 153/75 Pulse 101 Temp 37.2 ???C (99 ???F) Resp 18 Wt 232 lb (105.2 kg) SpO2 97% BMI 36.34 kg/m??? Anesthesia Post Evaluation Level of consciousness: awake Post-procedure exam normal. Body temperature, hydration status, PONV and pain evaluated and addressed. Pain management: adequate Hydration status: normal PONV:No nausea/vomiting reported Cardiopulmonary status stable Respiratory status: acceptable Cardiovascular status: acceptable ANESTHESIA NOTABLE EVENTS: No notable events documented. Normal [facility] Preprocedure Eval peteron 06-10-2024 [employer] Authentication Interface Message Text ASA: 3 No history of anesthetic complications Past Medical History and Review of Systems Pulmonary Dental - negative ROS Endo Neuro/Psych - negative ROS Cardiovascular (+) hypertension, Surgical risk: intermediate; Cardiac condition: no apparent No previous ECG available GI/Hepatic/Renal - negative ROS Heme/Other - negative ROS Other ROS: No past medical history on file. SCC Oral cavity Physical Exam Airway Mallampati: II TM distance: Adequate Micrognathia: Not present Jaw opening: Adequate Neck flexion: Adequate Dental Pulmonary - pulmonary exam normal Cardiovascular - cardiovascular exam normal Neuro - neurological exam normal Plan Anesthesia plan: general; (ETT) Anesthesia risks / alternatives discussed pre-op Questions answered / anesthesia plan accepted Past medical history, surgical history, allergies, and medications reviewed. Pertinent laboratory tests, EKG, imaging, and consults reviewed and I have personally seen and evaluated the patient, repeating fonseca portions of the history and physical examination. Attestation: Anesthesia options were discussed with the patient and/or legal passenger service representative. The risks, benefits and alternatives were reviewed. Questions regarding anesthesia were answered. Patient and/or legal passenger service representative knows such anesthetics and procedures may be performed by Resident physicians, Certified Anesthesiologist Assistants, or Certified Nurse Anesthetists under the supervision of a physician. The patient /or the patient's legal passenger service representative agree with the plan for anesthesia. MHPATFORM Normal [facility] Transfer Of [place] n 06-10-2024 Park [employer] Authentication Interface Message Text Patient taken to ICU, spontaneous breathing with supplemental oxygen. Standard transport monitoring, emergency medications and equipment available. Completed SBAR handoff to the receiving nurse. Patient was awake, drowsy, comfortable, and stable on arrival. ICU Transfer Note Basic Operating Room Facts: Surgeon(s): Giorgio Mi MD Ludlow, David H., MD Scrub: Mona Laws RN; Justina Ford, MARY BETH; Maulik Lau CST; Joanna Vogel, MARY BETH [employer] Director Nurse: Tameka Velez, KAYLA; Maribeth Guardado, KAYLA; Cheng Sutherland, manager investmentApplication Developer Manager: Meena Munoz MD; Landon Pino MD; Lina Elizabeth MD Anesthesiologist: Arpita Crain MD; Yan Villegas MD CAA: Yifan Isaacs CAA; Jessica Garcia CAA DATE PULLER: Cristina Luis, STONEWORKING BELT SANDER-DATE PULLER; Roxy Morrison STONEWORKING BELT SANDER-DATE PULLER; Brisa Long STONEWORKING BELT SANDER-DATE PULLER Anesthesia Student: Marilyn Gibbons LARYNGOSCOPY, DIRECT ESOPHAGOSCOPY RIGID LEFT RADIAL FOREARM FREE FLAP, SPLIT THICKNESS SKIN GRAFT FROM THIGH (Neck) PARTIAL GLOSSECTOMY, TRACHEOSTOMY, NECK DISSECTION Intraoperative Events: No acute event ASA: 3 EBL: 200 mL Urine 935 mL Lactated Ringers and NaCl 0.9%: Fluid Totals (Filter: LR and NaCl 0.9% Medications Shown) Medication Calculated Total Lactated Ringers 2,900 mL / 3 bags Lactated Ringers 900 mL / 1 bag Cell Saver: Not documented Blood Administration View: 06/07/24 1808 to 06/10/24 180 (72 Hours) Sort by: Time None Other meds given: N/A Current Vasoactive Medications: Vasoactive Medications: None Breathing: Vent Settings: Vent Mode: Man./Spont. Minute Volume: 14.4 L PIP: 2 cmH2O FiO2: 95 % PEEP: 4 cmH2O Vent Rt: (!) 24 TV: 683 mL Lines, Drains, Airways Peripheral IV Access: 06/10/24 0749 20 gauge Anterior;Right Hand (Active) Site Assessment WNL;Dressing intact 06/10/24 0749 Infusion Status Port #1 Patent;Positive blood return;Infusing 06/10/24 0749 Peripheral IV Access: 06/10/24 0756 18 gauge Right Foot (Active) Site Assessment WNL;Dressing intact 06/10/24 0756 Infusion Status Port #1 Infusing;Patent 06/10/24 0756 Tracheostomy #6.5 Other (comment) Cuffed (Active) $ Airways: $ Trach placement (procedure) 06/10/24 0903 Secured via: Sutured 06/10/24 180 Site Assessment WNL 06/10/24 180 Arterial Line: 06/10/24 Right (Active) Site Assessment WNL;Dressing intact 06/10/24805 Line Status WNL 06/10/24805 Airway Insertion Details [REMOVED] Advanced Airway: ETT, Oral;Cuffed # 7.5 (Removed) 06/10/24 07 Pre-Oxygenation/ Induction: Mask Rapid Sequence Induction?: Mask Ventilation: Easy;Two-person;w/oral airway Blade Type: Hyperangulated Blade Size: 4 Visualization: Grade 1 Airway Type: ETT, Oral;Cuffed Airway Size: # 7.5 Post Insertion Assessment: Confirmation: Equal bilateral breath sounds, CO2 confirmed # Attempts >1: Special Equipment: Glidescope Present on Admission?: Previously Removed / Not Present: Removal Reason: Not Removed at Discharge: Removed 06/10/24903 Location (cm) 22 06/10/24748 Measured from: Lips 06/10/24748 Secured via: Taped 06/10/24748 Site Assessment WNL 06/10/24 07 All non-working IVs have been removed: N/A Hand off Completed: Yes 1. The patient was identified. 2. Pertinent medical history was relayed. 3. A brief discussion was had about any pertinent surgical/ procedural issues. 4. Intraoperative/ anesthetic management issue and concerns were discussed. 5. Plans for the early post-operative period relayed. 6. An opportunity for questions and acknowledgment of understanding of the report was received. Yifan Isaacs, CAA Normal [facility] BASIC METABOLIC PANELon 08-2 Anion gap [Moles/Vol] 14 mmol/L Normal 10-20 [facility] Comment on above: Performed By: #### Connor HJonnathan MG, PHOS #### [facility] [address], [place], Calcium [Mass/Vol] 9.1 mg/dL Normal 8.6-10.3 [facility] Comment on above: Performed By: #### Connor Knutson MG, PHOS #### [facility] [address], [place], Chloride [Moles/Vol] 107 mmol/L Normal 98-107 [facility] Comment on above: Performed By: #### Connor Knutson MG, PHOS #### [facility] [address], [place], CO2 [Moles/Vol] 25 mmol/L Normal 21-31 [facility] Comment on above: Performed By: #### Connor Knutson MG, PHOS #### [facility] [address], [place], Creatinine [Mass/Vol] 1.22 mg/dL Normal 0.70-1.30 [facility] Comment on above: Performed By: #### Connor HJonnathan MG, PHOS #### [facility] [address], [place], ESTIMATED GFR (CKD-EPI) 62 mL/min/1.73sqm Normal >=60 [facility] Comment on above: Result Comment: 2020 CKD EPI Equation using Creatinine without Race Comment: Estimated glomerular filtration rate (eGFR) is calculated without a race coefficient. Values should be interpreted in the context of the patient's full clinical presentation. Reference: 1. Bin C, Ronnie M, Arnol JOSE, et al.. A Unifying Approach for GFR Estimation: Recommendations of the NKF-ASN Task Force on Reassessing the Inclusion of Race in Diagnosing Kidney Disease. [place] Journal of Kidney Diseases 2021;79(2):268-88.e1. 2. N Engl J Med 2020 Vol. 385 Issue 19 Pages 3620-7705 Performed By: #### Connor HJonnathan MG, PHOS #### [facility] [address], [place], Glucose [Mass/Vol] 149 mg/dL High 74-109 [facility] Comment on above: Performed By: #### Connor H8 MG, PHOS #### [facility] [address], [place], Potassium [Moles/Vol] 4.6 mmol/L Normal 3.5-5.0 [facility] Comment on above: Performed By: #### Connor H8, MG, PHOS #### [facility] [address], [place], Sodium [Moles/Vol] 141 mmol/L Normal 136-145 [facility] Comment on above: Performed By: #### C H8, MG, PHOS #### [facility] [address] [place] [address], Urea nitrogen [Mass/Vol] 24 mg/dL Normal 7-25 [facility] Comment on above: Performed By: #### Connor H8, MG, PHOS #### [facility] [address] [place] [address], BLOOD GAS, ARTERIALOrdered B y: Linsey Santiago on 06-10-2024 Base excess Calc (Bld) [Moles/Vol] -1.6000 mmol/L -2.0 - 3.0 mmol/L [facility] CO2 (Bld) [Partial pressure] 35.9 mm[Hg] [facility] Oxygen (Bld) [Partial pressure] 115 mm[Hg] High [facility] pH (Bld) 7.407 [pH] 7.350 - 7.450 [facility] BLOOD GAS, ARTERIALon 2023 CR ASIA -1.6 mmol/L Normal -2.0-3.0 [facility] Comment on above: Performed By: #### C R BGA, CR COOX, CR LYTES, LACT, CR ICA, CR GLU #### [facility] [address] [place] [address], CR PCO2 35.9 mm Hg Normal 35.0-45.0 [facility] Comment on above: Performed By: #### C R BGA, CR COOX, CR LYTES, LACT, CR ICA, CR GLU #### [facility] [address] [place] [address], CR PHA 7.407 Normal 7.350-7.450 [facility] Comment on above: Performed By: #### C R BGA, CR COOX, CR LYTES, LACT, CR ICA, CR GLU #### [facility] [address] [place] [address], CR PO2 115 mm Hg High 80-100 [facility] Comment on above: Performed By: #### C R BGA, CR COOX, CR LYTES, LACT, CR ICA, CR GLU #### [facility] [address] [place] [address], HCO3 (Bld) [Moles/Vol] 22 mmol/L Normal - e [facility] Comment on above: Performed By: #### C R BGA, CR COOX, CR LYTES, LACT, CR ICA, CR GLU #### [facility] [address] [place] [address], Oxygen saturation in Blood 98.2 % Normal 95.0-99.0 [facility] Comment on above: Performed By: #### C R BGA, CR COOX, CR LYTES, LACT, CR ICA, CR GLU #### [facility] [address] [place] [address], CR ASIA -1.4 mmol/L Normal -2.0-3.0 [facility] Comment on above: Performed By: #### C H8, MG, PHOS #### [facility] [address] [place] [address], CR PCO2 44.2 mm Hg Normal 35.0-45.0 [facility] Comment on above: Performed By: #### C H8, MG, PHOS #### [facility] [address] [place] [address], CR PHA 7.350 Normal 7.350-7.450 [facility] Comment on above: Performed By: #### C H8, MG, PHOS #### [facility] [address] [place] [address], CR PO2 131 mm Hg High 80-100 [facility] Comment on above: Performed By: #### C H8, MG, PHOS #### [facility] [address] [place] [address], HCO3 (Bld) [Moles/Vol] 24 mmol/L Normal - [facility] Comment on above: Performed By: #### C H8, MG, PHOS #### [facility] [address] [place] [address], Oxygen saturation in Blood 98.6 % Normal 95.0-99.0 [facility] Comment on above: Performed By: #### C H8, MG, PHOS #### [facility] [address] [place], [address] BLOOD GAS, ARTERIALOrdered B y: Mike Bustillos on 06-10-2024 Base excess Calc (Bld) [Moles/Vol] -1.4000 mmol/L -2.0 - 3.0 mmol/L [facility] CO2 (Bld) [Partial pressure] 44.2 mm[Hg] [facility] Oxygen (Bld) [Partial pressure] 131 mm[Hg] High [facility] pH (Bld) 7.350 [pH] 7.350 - 7.450 [facility] Basic metabolic 2000 panelon 06-10-2024 Anion gap [Moles/Vol] 14 mmol/L 10 - 20 [facility] Calcium [Mass/Vol] 9.1 mg/dL 8.6 - 10. 3 mg/dL [facility] Chloride [Moles/Vol] 107 mmol/L 98 - 10 7 mmol/L [facility] CO2 [Moles/Vol] 25 mmol/L 21 - 31 mmol/L [facility] Creatinine [Mass/Vol] 1.22 mg/dL 0.70 - 1.30 mg/dL [facility] GFR/1.73 sq M.predicted CKD-EPI (S/P/Bld) [Vol rate/Area] 62 - PINF [facility] Comment on above: 2020 CKD EPI Equatio n using Creatinine without Race Comment: Estimated glomerular filtration rate (eGFR) is calculated without a race coefficient. Values should be interpreted in the context of the patient's full clinical presentation. Reference: 1. Bin C, Ronnie M, Arnol JOSE, et al.. A Unifying Approach for GFR Estimation: Recommendations of the NKF-ASN Task Force on Reassessing the Inclusion of Race in Diagnosing Kidney Disease. [place] Journal of Kidney Diseases 2021;79(2):268-88.e1. 2. N Engl J Med 1 Vol. 385 Issue 19 Pages 4694-6984 Glucose [Mass/Vol] 149 mg/dL High 74 - 109 mg/dL [facility] Potassium [Moles/Vol] 4.6 mmol/L 3.5 - 5.0 mmol/L [facility] Sodium [Moles/Vol] 141 mmol/L 136 - 145 mmol/L [facility] Urea nitrogen [Mass/Vol] 24 mg/dL 7 - 25 mg/dL [facility] Blood Attestationon 06-10-20 24 [employer] Authentication Interface Message Text Blood Attestation: ATTESTATION OF INFORMED CONSENT FOR BLOOD: The transfusion of blood and/or blood components were discussed with the patient and/or legal passenger service representative. The risks, benefits and alternatives were reviewed. Questions regarding blood transfusions were answered. The patient /or the patient's legal passenger service representative agree with the plan for transfusion of blood and/or blood components. Normal [facility] CALCIUM, IONIZEDon 4 Calcium.ionized (Bld) [Moles/Vol] 1.10 mmol/L Low 1.15 - 1.33 mmol/L [facility] Comment on above: This test was develo ped, and its performance characteristics determined by the Department of Pathology of [facility]. It has not been cleared or approved by the FDA. This test is used for clinical purposes only. Interpretation and review of laboratory results Abnormal [facility] CR ICA 1.10 mmol/L Low 1.15-1.33 [facility] Comment on above: Result Comment: This test was developed, and its performance characteristics determined by the Department of Pathology of [facility]. It has not been cleared or approved by the FDA. This test is used for clinical purposes only. Performed By: #### C R BGA, CR COOX, CR LYTES, LACT, CR ICA, CR GLU ####S PATHOLOGY [id number] [place], [address] Calcium.ionized (Bld) [Moles/Vol] 1.23 mmol/L 1.15 - 1.33 mmol/L [facility] Comment on above: This test was develo ped, and its performance characteristics determined by the Department of Pathology of [facility]. It has not been cleared or approved by the FDA. This test is used for clinical purposes only. Interpretation and review of laboratory results Normal [facility] CR ICA 1.23 mmol/L Normal 1.15-1.33 [facility] Comment on above: Result Comment: This test was developed, and its performance characteristics determined by the Department of Pathology of [facility]. It has not been cleared or approved by the FDA. This test is used for clinical purposes only. Performed By: #### C [id number] PHOS #### [facility] [address] [place] [address], [id number] CBC panel Auto (Bld)on 06-10 Erythrocyte distribution width (RBC) [Ratio] 14.9 % High 11.5 - 14.5 % [facility] Hematocrit (Bld) [Volume fraction] 40.6 % Low 41.0 - 53.0 % [facility] Hemoglobin (Bld) [Mass/Vol] 13.3 g/dL Low 13.9 - 16.3 g/dL [facility] Interpretation and review of laboratory results Abnormal [facility] MCH (RBC) [Entitic mass] 30.0 pg 26.0 - 34.0 pg [facility] MCHC (RBC) [Mass/Vol] 32.7 g/dL 32.0 - 35.9 g/dL [facility] MCV (RBC) [Entitic vol] 92 fL 80 - 100 fL [facility] Platelet mean volume (Bld) [Entitic vol] 8.1 fL 7.5 - 11.2 fL [facility] Platelets (Bld) [#/Vol] 160 10*3/uL 150 - 400 K/uL [facility] RBC (Bld) [#/Vol] 4.42 10*6/uL Low [facility] WBC (Bld) [#/Vol] 10.4 10*3/uL 4.5 - 11.5 K/uL [facility] CO-OXIMETERon 06-10-2024 Carboxyhemoglobin (BldA) [Mass fraction] 1.1 % 0.5 - 1.5 % [facility] Hematoc[facility] (BldA) [Volume fraction] 39.0 % Low 42.0 - 54.0 % [facility] Hemoglobin (Bld) [Mass/Vol] 12.7 g/dL Low 13.5 - 17.5 g/dL [facility] Methemoglobin (BldA) [Mass fraction] 0.8 % 0.0 - 1.5 % [facility] Oxyhemoglobin (BldA) [Mass fraction] 96.3 % 94.0 - 98.0 % [facility] CARBOXYHEMOGLOBIN 1.1 % Normal 0.5-1.5 [facility] Comment on above: Performed By: #### C R BGA, CR COOX, CR LYTES, LACT, CR ICA, CR GLU #### [facility] [address] [place] [address], CR HBMET 0.8 % Normal 0.0-1.5 [facility] Comment on above: Performed By: #### C R BGA, CR COOX, CR LYTES, LACT, CR ICA, CR GLU #### [facility] [address] [place] [address], Hematocrit (Bld) [Volume fraction] 39.0 % Low 42.0-54.0 [facility] Comment on above: Performed By: #### C R BGA, CR COOX, CR LYTES, LACT, CR ICA, CR GLU #### [facility] [address] [place] [address], Hemoglobin (Bld) [Mass/Vol] 12.7 g/dL Low 13.5-17.5 [facility] Comment on above: Performed By: #### C R BGA, CR COOX, CR LYTES, LACT, CR ICA, CR GLU #### [facility] [address] [place] [address], OXYHEMOGLOBIN 96.3 % Normal 94.0-98.0 [facility] Comment on above: Performed By: #### C R BGA, CR COOX, CR LYTES, LACT, CR ICA, CR GLU #### [facility] [address] [place] [address], Carboxyhemoglobin (BldA) [Mass fraction] 1.1 % 0.5 - 1.5 % [facility] Hematocrit (BldA) [Volume fraction] 43.2 % 42.0 - 54.0 % [facility] Hemoglobin (Bld) [Mass/Vol] 14.1 g/dL 13.5 - 17.5 g/dL [facility] Methemoglobin (BldA) [Mass fraction] 0.4 % 0.0 - 1.5 % [facility] Oxyhemoglobin (BldA) [Mass fraction] 97.1 % 94.0 - 98.0 % [facility] CARBOXYHEMOGLOBIN 1.1 % Normal 0.5-1.5 [facility] Comment on above: Performed By: #### MG Amparo, PHOS #### [facility] [address] [place] [address], CR HBMET 0.4 % Normal 0.0-1.5 [facility] Comment on above: Performed By: #### MG Amparo, PHOS #### [facility] [address] [place] [address], Hematocrit (Bld) [Volume fraction] 43.2 % Normal 42.0-54.0 [facility] Comment on above: Performed By: #### MG Amparo, PHOS #### [facility] [address] [place] [address], Hemoglobin (Bld) [Mass/Vol] 14.1 g/dL Normal 13.5-17.5 [facility] Comment on above: Performed By: #### MG Amparo, PHOS #### S [facility] [address] [place] [address], OXYHEMOGLOBIN 97.1 % Normal 94.0-98.0 [facility] Comment on above: Performed By: #### MG Amparo, PHOS #### [facility] [address] [place] [address], COMPLETE BLOOD COUNTon 06-10 Erythrocyte distribution width (RBC) [Ratio] 14.9 % High 11.5-14.5 [facility] Comment on above: Performed By: #### MG Amparo, PHOS #### [facility] [address] [place] [address], Hematocrit (Bld) [Volume fraction] 40.6 % Low 41.0-53.0 [facility] Comment on above: Performed By: #### MG Amparo, PHOS #### [facility] [address] [place] [address], Hemoglobin (Bld) [Mass/Vol] 13.3 g/dL Low 13.9-16.3 [facility] Comment on above: Performed By: #### C H8, MG, PHOS #### [facility] [address] [place] [address], MCH (RBC) [Entitic mass] 30.0 pg Normal 26.0-34.0 [facility] Comment on above: Performed By: #### Connor Knutson MG, PHOS #### [facility] [address] [place] [address], MCHC (RBC) [Mass/Vol] 32.7 g/dL Normal 32.0-35.9 [facility] Comment on above: Performed By: #### Connor Knutson MG, PHOS #### [facility] [address] [place] [address], MCV (RBC) [Entitic vol] 92 fL Normal 80-100 T [facility] Comment on above: Performed By: #### Connor Knutson MG, PHOS #### [facility] [address] [place] [address], Platelet mean volume (Bld) [Entitic vol] 8.1 fL Normal 7.5-11.2 [facility] Comment on above: Performed By: #### Cononr Knutson MG, PHOS #### [facility] [address] [place] [address], Platelets (Bld) [#/Vol] 160 10*3/uL Normal 150-400 [facility] Comment on above: Performed By: #### Connor Knutson MG, PHOS #### [facility] [address] [place] [address], RBC (Bld) [#/Vol] 4.42 10*6/uL Low 4.50-5.90 [facility] Comment on above: Performed By: #### Connor HJonnathan, MG, PHOS #### [facility] [address] [place] [address], WBC (Bld) [#/Vol] 10.4 10*3/uL Normal 4.5-11.5 [facility] Comment on above: Performed By: #### Connor HJonnathan MG, PHOS #### [facility] [address] [place] [address], ELECTROLYTESon 06-10-2024 Chloride [Moles/Vol] 110 mmol/L High 98 - 10 7 mmol/L [facility] Potassium [Moles/Vol] 3.9 mmol/L 3.5 - 5.0 mmol/L [facility] Sodium [Moles/Vol] 141 mmol/L 136 - 146 mmol/L [facility] Chloride [Moles/Vol] 110 mmol/L High 98-107 [facility] Comment on above: Performed By: #### C R BGA, CR COOX, CR LYTES, LACT, CR ICA, CR GLU #### [facility] [address] [place] [address], Potassium [Moles/Vol] 3.9 mmol/L Normal 3.5-5.0 [facility] Comment on above: Performed By: #### C R BGA, CR COOX, CR LYTES, LACT, CR ICA, CR GLU #### [facility] [address] [place] [address], Sodium [Moles/Vol] 141 mmol/L Normal 136-146 [facility] Comment on above: Performed By: #### C R BGA, CR COOX, CR LYTES, LACT, CR ICA, CR GLU #### [facility] [address] [place] [address], Chloride [Moles/Vol] 107 mmol/L 98 - 10 7 mmol/L [facility] Potassium [Moles/Vol] 4.0 mmol/L 3.5 - 5.0 mmol/L [facility] Sodium [Moles/Vol] 142 mmol/L 136 - 146 mmol/L [facility] Chloride [Moles/Vol] 107 mmol/L Normal 98-107 [facility] Comment on above: Performed By: #### MG Christensen PHOS #### [facility] [address] [place] [address], Potassium [Moles/Vol] 4.0 mmol/L Normal 3.5-5.0 [facility] Comment on above: Performed By: #### MG Christensen PHOS #### [facility] [address] [place] [address], Sodium [Moles/Vol] 142 mmol/L Normal 136-146 [facility] Comment on above: Performed By: ###MG Singh PHOS #### [facility] [address] [place], [place], GLUCOSE, WHOLE BLOODon 06-10 Glucose [Mass/Vol] 143 mg/dL High 70 - 105 mg/dL [facility] CR GLU 143 mg/dL High 70-105 [facility] Comment on above: Performed By: #### Connor R BGA, CR COOX, CR LYTES, LACT, CR ICA, CR GLU ####[facility] [id number] [place], [place], Glucose [Mass/Vol] 142 mg/dL High 70 - 105 mg/dL [facility] CR GLU 142 mg/dL High 70-105 [facility] Comment on above: Performed By: ###MG Singh PHOS #### [facility] [address], [place], H AND Pablo 06-10-2024 [employer] Authentication Interface Message Text Attestation signed by Cory Pavon MD at 06/11/2024 3:55 AM Teaching Physician Note: I reviewed the resident's documentation and discussed the patient with the resident. I agree with the resident's medical decision making as documented in the resident's note. Cory Pavon MD Division of Trauma, Critical Care, Carp[place], and Emergency General Surgery Department of Surgery [facility] DIVISION OF ACUTE CARE SURGERY SURGICAL CRITICAL CARE HISTORY AND PHYSICAL Reason for consultation: post-op respiratory monitoring Referring physician: HPI: 74 M pmh HLD, HTN, tongue SCCA now s/p trach, resection of tongue SCCa, neck dissection with radial forearm free flap reconstruction. Admitted to ICU post op for airway monitoring and flap checks. EBL: 200cc Fluid replacement: 500cc albumin, 3.8L IVF UOP: 935cc PMH: No past medical history on file. PSH: No past surgical history on file. MEDS: Prior to Admission Medications Prescriptions Last Dose Informant Patient Reported? Taking? ALPRAZolam (XANAX) 0.5 MG tablet Yes No Sig: TAKE 1 TABLET BY MOUTH AT BEDTIME IF NEEDED TO SLEEP WHILE TAKING STEROID aspirin 81 MG tablet Yes No Sig: Take 81 mg by mouth. Patient not taking: Reported on 05/26/2024 atorvastatin (LIPITOR) 80 mg tablet 06/09/2024 Yes Yes Si mg every evening. busPIRone (BUSPAR) 10 MG tablet 06/10/2024 Yes Yes ibuprofen (MOTRIN) 800 MG tablet Yes No Sig: Take 800 mg by mouth every 8 hours. irbesartan (AVAPRO) 75 MG tablet 06/09/2024 Yes Yes Sig: every evening. latanoprost (XALATAN) 0.005 % ophthalmic solution Yes No Sig: INSTILL 1 DROP INTO EACH EYE AT BEDTIME metoprolol (LOPRESSOR) 25 MG tablet 06/10/2024 Yes Yes Sig: Take 25 mg by mouth 2 times a day. naloxone 4 mg/0.1 mL nasal liquid No No Sig: Use 1 Taylors in one nostril (alternate sides) as needed for Drug Overdose for up to 1 dose. Every 2-3 mins. until help arrives. predniSONE (DELTASONE) 10 MG tablet > Month Yes No Sig: TAKE 4 TABLETS BY MOUTH TODAY, THEN 2 TABS ONCE DAILY FOR 4 DAYS, THEN 1 TAB ONCE DAILY FOR 4 DAYS, THEN 1/2 (ONE-HALF) TAB ONCE DAILY FOR 2 DAYS sildenafil citrate (VIAGRA) 100 MG tablet Yes No tramadol (ULTRAM) 50 MG tablet Past Week Yes No Sig: TAKE 1 TO 2 TABLETS BY MOUTH EVERY 8 HOURS NEEDED FOR TONGUE PAIN. Facility-Administered Medications: None ALL: No Known Allergies FH: No family history on file. SH: Social History Socioeconomic History Marital status: Unknown Tobacco Use Smoking status: Former Current packs/day: 0.00 Types: Cigarettes Quit date: 1974 Years since quittin.6 Smokeless tobacco: Never Substance and Sexual Activity Alcohol use: Not Currently Drug use: Not Currently Review Of Systems: Skin: negative Eyes: negative review of symptoms Ears/Nose/Throat: negative Respiratory: negative symptoms (no cough, hemoptysis, SOB, MALDONADO, PND, wheezing) Cardiovascular: negative symptoms (No CP/Pressure/Tightness, palpitations, orthopnea, PND, SOB, MALDONADO, edema, SHOOK or vision change) Gastrointestinal: negative symptoms (no abdominal pain, anorexia, n/v, indigestion, constipation, or diarrhea) Genitourinary: no urinary symptoms Neurologic: negative symptoms (no syncope, seizures, weakness, gait problems, numbness, burning pain, tremors, or memory loss) negative (no arthritic pain, no joint swelling, no muscle weakness) Psychiatric: negative (no sleep disturbance, anxiety, memory loss, disorientation, inattention, feelings of depression) Hematologic/Lymphatic/ Immunologic: negative (no anemia, bleeding, bruising) Endocrine: negative review of symptoms PHYSICAL EXAM: VITALS: Vitals: 06/10/24 1850 BP: Pulse: 101 Resp: 18 Temp: 99 ???F (37.2 ???C) SpO2: 97% Patient Vitals for the past 24 hrs: BP Temp Temp src Pulse Resp SpO2 O2 Device FiO2 (%) 06/10/24 1900 156/80 99.1 ???F (37.3 ???C) -- 97 17 98 % -- -- 06/10/24 1850 -- 99 ???F (37.2 ???C) -- 101 18 97 % -- -- 06/10/24 1840 -- 99 ???F (37.2 ???C) -- 95 18 97 % -- -- 06/10/24 1830 153/75 99.1 ???F (37.3 ???C) -- 96 20 96 % -- -- 06/10/24 1820 -- 98.8 ???F (37.1 ???C) Bladder 97 15 100 % -- -- 06/10/241811 -- -- -- -- -- 85 % Trach collar 70 06/10/24 1804 -- -- -- 101 18 98 % Trach collar 50 06/10/24 0647 159/82 97.9 ???F (36.6 ???C) Oral 59 16 94 % Room air -- Physical Exam Constitutional: General: He is not in acute distress. Appearance: Normal appearance. He is obese. He is not ill-appearing, toxic-appearing or diaphoretic. HENT: Head: Normocephalic and atraumatic. Mouth/Throat: Comments: Free flap with dopplerable signal. ROBERTH drains x 2 with serosang output, no evidence of active bleeding. Eyes: Extraocular Movements: Extraocular movements intact. Pupils: Pupils (more content not included)... Normal [facility] LACTIC ACIDon 06-10-2024 Interpretation and review of laboratory results Abnormal [facility] Lactate [Moles/Vol] 2.4 mmol/L High 0.5 - 1. 6 mmol/L [facility] LACT 2.4 mmol/L High 0.5-1.6 [facility] Comment on above: Performed By: #### C MG Zenia PHOS #### [facility] [address] [place] [address], Lactate [Moles/Vol] 1.7 mmol/L High 0.5 - 1. 6 mmol/L [facility] CR LACT 1.7 mmol/L High 0.5-1.6 [facility] Comment on above: Performed By: #### C R BGA, CR COOX, CR LYTES, LACT, CR ICA, CR GLU #### [facility] [address] [place], [place], Lactate [Moles/Vol] 1.1 mmol/L 0.5 - 1. 6 mmol/L [facility] CR LACT 1.1 mmol/L Normal 0.5-1.6 [facility] Comment on above: Performed By: #### Connor H8 MG, PHOS #### [facility] [address] [place] [address], Laboratory - Blood bankon ABO and Rh group Nom (Bld) Blood group O Rh(D) positive [facility] - Chemistry and C hemistry - challengeon 06-10-2024 HCO3 (Bld) [Moles/Vol] 22 mmol/L 21 - 28 mmol/L [facility] HCO3 (Bld) [Moles/Vol] 24 mmol/L 21 - 28 mmol/L [facility] MAGNESIUMon 06-10-2024 Magnesium [Mass/Vol] 1.6 mg/dL Low 1.9 - 2 .7 mg/dL [facility] Magnesium [Mass/Vol] 1.6 mg/dL Low 1.9-2.7 [facility] Comment on above: Performed By: #### C H8, MG PHOLoren #### [facility] [address] [place] [address], [phone] No Panel Informationon 06-10 Interpretation and review of laboratory results Abnormal [facility] Interpretation and review of laboratory results Abnormal [facility] Interpretation and review of laboratory results Normal [facility] Interpretation and review of laboratory results Abnormal [facility] OP Noteon 06-10-2024 [employer] Authentication Interface Message Text Operative Report DATE OF SERVICE: 06/10/24 PATIENT: Quirino Cordero PREOPERATIVE DIAGNOSIS: 1. Left lateral tongue squamous cell carcinoma POSTOPERATIVE DIAGNOSIS: Same PROCEDURE: Direct laryngoscopy with biopsy, CPT 13077 Rigid esophagoscopy, CPT 53375 3. Left radial forearm free tissue transfer with microvascular anastomosis, CPT 21904. 4. Complex vestibuloplasty, CPT 95750. 5. Split thickness skin graft from the left thigh 4 x 6 cm to left forearm defect, CPT 04959. 6. Application of short-arm splint to left forearm donor site, CPT 33872. SURGEON: Giorgio Mi MD CO-SURGEON (s): Clayton Villarreal MD AIRPLANE CLEANER: Landon Pino MD; Meena Munoz MD ANESTHESIA: General ESTIMATED BLOOD LOSS: 50 mLs COMPLICATIONS: None SPECIMENS: None INTRAOPERATIVE FINDINGS: 1. Cutaneous paddle size: 4 x 6 cm 2. Microvascular Anastomoses: Radial artery to left facial artery, venae comitantes not anastomosed, cephalic vein to facial vein. 3. Auxiliary Power Equipment Operator Size(s): 3.5mm jailkeeper for cephalic vein 4. Ischemia Time: 89 minutes INDICATIONS AND CONSENT: This is a 74 year old year old patient who has been diagnosed with left lateral tongue squamous cell carcinoma and is scheduled to undergo partial glossectomy and neck dissection resection. I have been asked to assist with the reconstruction which will be in the form of left radial forearm free flap. The risks/benefits/alterna tives of free flap reconstruction were discussed with the patient including but not limited to flap failure, need for additional procedures, bleeding, and infection. DESCRIPTION OF PROCEDURE: On 06/10/24, the patient was identified in the preoperative area, consent confirmed, and transported to the OR. They were transferred to the OR table in a supine position. After induction of general anesthesia, a surgeon initiated time out was performed. The patient was then draped appropriately. The oral cavity was first examined and palpated. The laryngoscope was then atraumatically inserted into the oral cavity and examination of the oral cavity, oropharynx, hypopharynx and larynx was performed in a sequential manner at that time. Examination of these areas revealed a granular, exophytic and friable left lateral tongue tumor extending towards the midline and floor of mouth (approx 4 x 3 cm) with at least 1 cm depth of invasion on palpation.. We then proceeded with rigid esophagoscopy. The esophagoscope was atraumatically inserted to examine the entire length of the cervical esophagus. Examination revealed no evidence of masses, lesions, tears, injury or perforation. Radial forearm free flap harvest My portion of the surgery started concurrently with the resection being done, we harvested a fasciocutaneous radial forearm free flap from the left forearm. Prior to surgery I performed an Niko's test, this showed that the radial artery could be sacrificed without causing ischemia in the hand (Niko's performed in the conventional manner as well as with pulse oximetry). The skin paddle was templated from the ablative defect. A ovoid skin flap was designed measuring 4 x 6 cm and centered over the cephalic vein and radial artery. A curvilinear proximal linear incision was designed from the proximal portion of the skin incision up to the antecubital fossa. The skin flap was incised circumferentially and proximal skin flaps were raised, revealing the cephalic vein. The cephalic vein was circumferentially freed up from the distal flap to the antecubital fossa, ligating all branches that were not contributing to our flap as well as the distal cephalic vein. Of note, the contributing branches of the cephalic vein to flap were small and not very robust. Next, the fascia was raised up off flexor carpi radialis, preserving the overlying peritenon. The ulnar vessels were not exposed and protected during our dissection. The lateral flap dissection was then done, deepening through the fat and then through the investing fascia overlying the brachioradialis muscle. The investing fascia was raised in a medial to lateral direction up off the underlying muscle and tendon. The peritenon and the brachioradialis tendon was preserved. Here we identified the superficial branches of the radial nerve, originating from in between the two muscular heads of the brachioradialis muscle. Meticulous care was taken to protect these branches and deliver the fascia of the flap off of them. All major branches of this nerve were preserved. We then identified the distal radial artery and vein at the distal end of flap and performed an intraoperative Niko's test by occluding the radial artery. This demonstrated continued perfusion and capillary refill in the thumb, and thus the remnant hand perfusion was deemed adequate and the distal pedicle was ligated with 2-0 Silk. The flap with attached radial pedicle was then dissected up out of the in (more content not included)... 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] * Former smoker [Z87.891] Procedures: Direct laryngoscopy Esophagoscopy Tracheostomy Hemiglossectomy, left Left selective neck dissection Surgeon(s): Surgeon(s): Giorgio Mi MD Ludlow, David H., MD Staff: Scrub: Mona Laws RN; Justina Ford CST; Maulik Lau CST; Joanna Vogel CST [employer] Director Nurse: Tameka Velez RN; Maribeth Guardado, KAYLA; Cheng Sutherland RN Application Developer Manager: Meena Munoz MD; Landon Pino MD; Lina Elizabeth MD Anesthesia: General Anesthesiologist: Arpita Crain MD; Yan Villegas MD CAA: Yifan Isaacs CAA; Jessica Garcia CAA DATE PULLER: Cristina Luis, STONEWORKING BELT SANDER-DATE PULLER; Roxy Morrison, STONEWORKING BELT SANDER-DATE PULLER; Brisa Long, STONEWORKING BELT SANDER-DATE PULLER Anesthesia Student: Marilyn Gibbons Specimen(s): ID Type Source Tests Collected by Time Destination 1 : Anterior inferior mucosal margin Tissue Mouth SPECIMEN FOR SURGICAL PATH Clayton Villarreal MD 06/10/2024 0941 2 : Partial glossectomy, single stitch hernández anterior, double stitch hernández dorsal Tissue Mouth SPECIMEN FOR SURGICAL Clayton Pollard MD 06/10/2024 0941 3 : level 1 A Tissue Lymph node SPECIMEN FOR Clayton Butcher MD 06/10/2024 1022 4 : LEFT LEVEL 1 B Tissue Lymph node SPECIMEN FOR Clayton Butcher MD 06/10/2024 1109 5 : LEFT LEVEL 2 Tissue Lymph node SPECIMEN FOR Clayton Butcher MD 06/10/2024 1114 6 : Floor of mouth, new margin, purple margin = true margin, stitch hernández anterior Tissue Mouth SPECIMEN FOR SURGICAL Clayton Pollard MD 06/10/2024 1146 7 : anterior floor mouth/tongue Tissue Mouth SPECIMEN FOR SURGICAL Giorgio Bonds MD 06/10/2024 1212 8 : posterior floor mouth/tongue Tissue Mouth SPECIMEN FOR Giorgio Cuadra MD 06/10/2024 1212 9 : double stitch hernández level 2, single stitch hernández level 4 Tissue Lymph node SPECIMEN FOR Giorgio Cuadra MD 06/10/2024 1311 10 : level 4 Tissue Lymph node SPECIMEN FOR SURGICAL Giorgio Bonds MD 06/10/2024 1321 11 : additional level 3 Tissue Lymph node SPECIMEN FOR Giorgio Cuadra MD 06/10/2024 1345 Estimated Blood Loss: 100mL Lines/Drains: Peripheral IV Access: 06/10/24 0749 20 gauge Anterior;Right Hand (Active) Site Assessment WNL;Dressing intact 06/10/24 1804 Infusion Status Port #1 Capped;Patent;Positive blood return 06/10/241803 Peripheral IV Access: 06/10/24 0756 18 gauge Right Foot (Active) Site Assessment WNL;Dressing intact 06/10/241803 Infusion Status Port #1 Capped;Patent;Positive blood return 06/10/241803 Surgical Drain Geo Aranda -- Flat # 1 10 fr Anterior;Left (Active) Site Assessment Edema 06/10/241809 Output Description Sanguineous 06/10/241809 Surgical Drain Geo Aranda -- Flat # 2 10 fr Anterior (Active) Site Assessment Edema 06/10/241809 Output Description Sanguineous 06/10/241809 Surgical Drain Geo Aranda -- Round # 3 19 fr Left;Distal (Active) Site Assessment Edema 06/10/241809 Output Description Sanguineous 06/10/241809 Temporarily Retained Foreign Object: Yes Location: Left neck Object: Surgical drain: 10 flat, 19 round Anticipated removal date: POD3-7 Findings: Left tongue lesion on lateral aspect of tongue with extension to FOM, posterior extension to glossotonsillar junction, depth of approximately 1-1.5cm Lesion excsion of 3cm x 8cm Left neck dissection, levels I-IV Left level 3 lymph node adherent to internal jugular vein, removed from vein with desmoplastic changes appreciated on surface of vein, no palpable invasion of vein Procedure in Detail: The patient was brought back to the operating room and a time out was performed by Dr. Mi. The patient was then induced under general anesthesia and was intubated using orotracheal tube. The planned trach and neck dissection incisions were injected with 1% lidocaine with 1:100,000 epinephrine. A final pre-incision pause was then performed to verify the correct procedure and patient prior to starting the planned procedure. First, direct laryngoscopy was performed using the Dedo laryngoscope. All sites of the upper aerodigestive tract were visualized including the uvula, soft palate, tonsils, vallecula, epiglottis, base of tongue, arytenoids, false and true vocal cords, post-cricoid region and pyriform sinuses. There was noted to be a lesion of the left tongue as described in the findings. Next, rigid esophagoscopy was performed with the scope inserted to the level of the GE junction. On careful removal of the scope all sites of the esophageal mucosa were evaluated and (more content not included)... Normal [facility] OR Nursingon 06-10-2024 [employer] Authentication Interface Message Text Nursing report given to 5 West RN Maryanne Normal [facility] PHOSPHORUSon 06-10-2024 Interpretation and review of laboratory results Normal [facility] Phosphate [Mass/Vol] 4.0 mg/dL 2.5 - 5 .0 mg/dL [facility] Phosphate [Mass/Vol] 4.0 mg/dL Normal 2.5-5.0 [facility] Comment on above: Performed By: #### C H8, MG, PHOS #### [facility] [address] [place], [phone] Progress Noteson 06-10-2024 [employer] Authentication Interface Message Text ENT Flap Check Subjective: S/p partial glossectomy, neck dissection, RFFF, trach on 06/10. Doing well post-operatively. Pain controlled with DRYWALL CONTRACTOR. Mild amount of blood tinged secretions around trach and in mouth with no active bleeding. Objective: Vitals reviewed in EMR Gen: NAD, AOx3, resting comfortably in bed Face/Neck: All incisions c/d/i, neck soft and flat without evidence of hematoma or fluid collection -External doppler with strong arterial signal -Trach in midline position without bleeding or thick tracheal secretions - corpak in place Oral Cavity: All intraoral incisions c/d/i without evidence of dehiscence -Flap soft and pink with good capillary refill Extremities: left arm warm with intact movement and sensation -left thigh skin graft donor site with tegaderm in place Drains: All drains in place and holding suction with serosanguinous drainage (stripped) Assessment/Plan: 74 year old male with PMH HTN with tongue SCCa s/p partial glossectomy, left neck dissection, RFFF, STSG, trach on 06/[address] Mi and Latrice. Doing well post-operatively - KUB with corpak terminating in stomach. Does not need to be advanced, ok to use for meds -Continue q6hr flap checks until POD3 ENT [phone] Normal [facility] [employer] Authentication Interface Message Text ENT FLAP CARE PLAN NOTE ASSESSMENT Admitted Diagnosis: squamous cell carcinoma of tongue Surgeon(s): Latrice Mi Day of Surgery 74 year old yo male with tongue cancer, now POD 0 s/p trach, resection of tongue SCCa, neck dissection, and reconstruction with radial forearm free tissue transfer and tracheostomy on 06/10/24 Flap Intraoral skin paddle Doppler: internal and external Donor Site: left radial forearm PLAN HEENT: -Q1H dopplers per nursing and Q6H resident flap check -ROBERTH Drains to bulb suction; monitor output and strip q4H; plan to remove after POD3 when output appropriate -ASA 81 mg x 7 days per flap protocol -Bacitracin to incisions TID x 3 days, then switch to vaseline TID x 14 days AIRWAY/PULM: -6.0 cuffed Shiley -> tentative plan for trach change on POD 5 to 4.0 cuffless Shiley -Humidified trach collar at all times -Wean O2 as tolerated -Standard trach care/suctioning/teachi ng -IS - Routine trach care - Keep plastic obturator (should be in small biohazard bag) in patient's room at all times in case of accidental decannulation. Obturators can help replace tracheostomies if they fall out, especially in the early post-operative period. To use them, take out the inner cannula (plastic inner tubing that clips onto trach) and put the obturator in. Once trach is replaced, promptly remove the obturator and replace it with the inner cannula. - Keep extra trach (6-0 cuffed Shiley) bedside for emergencies NEURO/ANALGESIA: -DRYWALL CONTRACTOR x 48 hrs -> Oxycodone q6 prn -Scheduled acetaminophen ID: -Unasyn x 4 days -Trend daily labs CARDS: -HDS, monitor H/H -Transfuse for Hgb < 7 - Discontinue arterial line on POD1 if HDS : -Discontinue cervantes on POD2 -Monitor urine output FEN/GI: -Strict NPO with TFs via DHT; ok to start trickle feeds today -Zofran, PPI -PO trial when cleared by ENT -Senna BID; add docusate and Miralax after POD 3 if no BM -Bolus TF after BM ENDO: -Monitor blood glucose -Replace lytes PRN EXTREM: -Bolster down/wound vac down on 06/18 -Split thickness dressing down on POD9/5 -> open to air for 4 hrs and then Eucerin/Aquaphor TID -Bacitracin to incisions TID for 3 days, then switch to vaseline. PPX: -subcutaneous Hep POD1 -SCDs in place while in bed -PT/OT consult -OOB to chair TID. OTHER: -Consults: SICU, PT/OT -Pertinent PMHx: HTN -Pathology: pending Dispo: ICU, transfer to floor POD3 - Will need trach supplies, enteral tube feeds - Case management for home health vs SNF placement - Plan for discharge around POD6-7 Appointments/Follow-up : Latrice Mi 06/23 Normal [facility] TYPE AND SCREENon 06-10-2024 Blood group antibody screen Ql Negative [facility] ABO and Rh group Nom (Bld) Blood group O Rh(D) positive Normal [facility] Comment on above: Performed By: #### T S ####[facility] [id number] [place], [place], ABSC INT Negative Normal [facility] Comment on above: Performed By: #### T S ####[facility] [id number] [place], XR ABDOMEN AP 1 VIEWon 06-10 XR ABDOMEN AP 1 VIEW EXAMINATION: XR ABDOMEN AP 1 VIEW 06/10/2024 07:07 PM CLINICAL HISTORY: feeding tube placement check ASSOCIATED DIAGNOSIS: ORDERING PROVIDER: MEENA GONZALES NOTE: COMPARISON: None FINDINGS: * Enteric tube projects over the mid stomach region. Consider advancement prior to being used for feeding. * Nonobstructive bowel gas pattern. * No free air is present in the upper abdomen * Osseous structures grossly intact * Overlying structures external to the patient IMPRESSION: 1. Enteric tube projects over the mid stomach region. Consider advancement prior to being used for feeding. 2. Nonobstructive bowel gas pattern. MACRO: None Normal [facility] XR Abdomen APon 06-10-2024 EXAMINATION: XR ABDOMEN AP 1 VIEW 06/10/2024 07:07 PM CLINICAL HISTORY: feeding tube placement check ASSOCIATED DIAGNOSIS: ORDERING PROVIDER: MEENA GONZALES NOTE: COMPARISON: None FINDINGS: * Enteric tube projects over the mid stomach region. Consider advancement prior to being used for feeding. * Nonobstructive bowel gas pattern. * No free air is present in the upper abdomen * Osseous structures grossly intact * Overlying structures external to the patient IMPRESSION: 1. Enteric tube projects over the mid stomach region. Consider advancement prior to being used for feeding. 2. Nonobstructive bowel gas pattern. MACRO: None RADIOLOGY Clayton Schultz MD - 06/10/2024 EXAMINATION: XR ABDOMEN AP 1 VIEW 06/10/2024 07:07 PM CLINICAL HISTORY: feeding tube placement check ASSOCIATED DIAGNOSIS: ORDERING PROVIDER: MEENA MUNOZ TECHNOLOGISTS NOTE: COMPARISON: None FINDINGS: * Enteric tube projects over the mid stomach region. Consider advancement prior to being used for feeding. * Nonobstructive bowel gas pattern. * No free air is present in the upper abdomen * Osseous structures grossly intact * Overlying structures external to the patient IMPRESSION: 1. Enteric tube projects over the mid stomach region. Consider advancement prior to being used for feeding. 2. Nonobstructive bowel gas pattern. MACRO: None [facility] Study observation (narrative) [facility] XR Abdomen APOrdered By: Bret Schultz on 06-10-2024 [facility] Work Phone: Telephone Encounteron 2023 [employer] Aut[employer] Interface Message Text Patients called asking to speak about their medications with a nurse as he is still in a decent amount of pain. Please call them back to speak with them. Thank you. [phone] Normal [facility] Telephone Encounteron 2023 [employer] Interface Message Text Pedro Villarreal pt dejuan called in stating pt ear still hurts and she informed me that on yesterdays appt. with you pt was told if medications do not work and pt still has ear pain you will prescribe something stronger. If prescribed please send you [facility] [id number], [place] [address] Thank you Normal [facility] BASIC METABOLIC PANELon 05-13 Anion gap [Moles/Vol] 15 mmol/L Normal 10-20 [facility] Comment on above: Performed By: #### C H8 ####[facility] PATH[facility] [id number] [facility], [address] Calcium [Mass/Vol] 9.9 mg/dL Normal 8.6-10.3 [facility] Comment on above: Performed By: #### C H8 ####S PATHOLOGY [id number] [place], [place], Chloride [Moles/Vol] 105 mmol/L Normal 98-107 [facility] Comment on above: Performed By: #### C H8 ####S PATHOLOGY [id number] [place], CO2 [Moles/Vol] 25 mmol/L Normal 21-31 [facility] Comment on above: Performed By: #### C H8 ####S PATHOLOGY [id number] [place], Creatinine [Mass/Vol] 1.26 mg/dL Normal 0.70-1.30 [facility] Comment on above: Performed By: #### C H8 ####[facility] PATHOLOGY [id number] [place], ESTIMATED GFR (CKD-EPI) 59 mL/min/1.73sqm Low >=60 [facility] Comment on above: Result Comment: 2020 CKD EPI Equation using Creatinine without Race Comment: Estimated glomerular filtration rate (eGFR) is calculated without a race coefficient. Values should be interpreted in the context of the patient's full clinical presentation. Reference: 1. Bin C, Ronnie M, Arnol JOSE, et al.. A Unifying Approach for GFR Estimation: Recommendations of the NKF-ASN Task Force on Reassessing the Inclusion of Race in Diagnosing Kidney Disease. [place] Journal of Kidney Diseases 2021;79(2):268-88.e1. 2. N Engl J Med 2020 Vol. 385 Issue 19 Pages 4148-5031 Performed By: #### C H8 ####[facility] PATH[facility] [id number] [place], Glucose [Mass/Vol] 84 mg/dL Normal 74-109 [facility] Comment on above: Performed By: #### C H8 ####[facility] PATHOLOGY [id number] [place], Potassium [Moles/Vol] 5.4 mmol/L High 3.5-5.0 [facility] Comment on above: Result Comment: Hemo lysis present Performed By: #### C H8 ####S PATHOLOGY [id number] [place], Sodium [Moles/Vol] 140 mmol/L Normal 136-145 [facility] Comment on above: Performed By: #### C H8 ####[facility] PATHOLOGY [id number] [place], Urea nitrogen [Mass/Vol] 29 mg/dL High 7-25 [facility] Comment on above: Performed By: #### C H8 ####S PATHOLOGY [id number] [place], [place], Basic metabolic 2000 panelon 05-26-2024 Anion gap [Moles/Vol] 15 mmol/L 10 - 20 [facility] Calcium [Mass/Vol] 9.9 mg/dL 8.6 - 10. 3 mg/dL [facility] Chloride [Moles/Vol] 105 mmol/L 98 - 10 7 mmol/L [facility] CO2 [Moles/Vol] 25 mmol/L 21 - 31 mmol/L [facility] Creatinine [Mass/Vol] 1.26 mg/dL 0.70 - 1.30 mg/dL [facility] GFR/1.73 sq M.predicted CKD-EPI (S/P/Bld) [Vol rate/Area] 59 Low - PINF [facility] Comment on above: 2020 CKD EPI Equatio n using Creatinine without Race Comment: Estimated glomerular filtration rate (eGFR) is calculated without a race coefficient. Values should be interpreted in the context of the patient's full clinical presentation. Reference: 1. Bin C, Ronnie M, Arnol JOSE, et al.. A Unifying Approach for GFR Estimation: Recommendations of the NKF-ASN Task Force on Reassessing the Inclusion of Race in Diagnosing Kidney Disease. [place] Journal of Kidney Diseases 202;79(2):268-88.e1. 2. N Engl J Med 1 Vol. 385 Issue 19 Pages 6259-6222 Glucose [Mass/Vol] 84 mg/dL 74 - 109 mg/dL [facility] Interpretation and review of laboratory results Abnormal [facility] Potassium [Moles/Vol] 5.4 mmol/L High 3.5 - 5.0 mmol/L [facility] Comment on above: Hemolysis present Sodium [Moles/Vol] 140 mmol/L 136 - 145 mmol/L [facility] Urea nitrogen [Mass/Vol] 29 mg/dL High 7 - 25 mg/dL [facility] CBC panel Auto (Bld)Ordered By: Susana Mcadams on 05-26-2024 Erythrocyte distribution width (RBC) [Ratio] 15.1 % High 11.5 - 14.5 % [facility] Hematocrit (Bld) [Volume fraction] 49.8 % 41.0 - 53.0 % [facility] Hemoglobin (Bld) [Mass/Vol] 16.4 g/dL High 13.9 - 16.3 g/dL [facility] Interpretation and review of laboratory results Abnormal [facility] MCH (RBC) [Entitic mass] 31.0 pg 26.0 - 34.0 pg [facility] MCHC (RBC) [Mass/Vol] 33.1 g/dL 32.0 - 35.9 g/dL [facility] MCV (RBC) [Entitic vol] 94 fL 80 - 100 fL [facility] Platelet mean volume (Bld) [Entitic vol] 9.5 fL 7.5 - 11.2 fL [facility] Platelets (Bld) [#/Vol] 148 10*3/uL Low 150 - 400 K/uL [facility] RBC (Bld) [#/Vol] 5.30 10*6/uL [facility] WBC (Bld) [#/Vol] 8.5 10*3/uL 4.5 - 11.5 K/uL [facility] COMPLETE BLOOD COUNTon 05-26 Erythrocyte distribution width (RBC) [Ratio] 15.1 % High 11.5-14.5 The [facility] Comment on above: Performed By: #### MG Christensen PHOS #### [facility] [address] [place], [address] Hematocrit (Bld) [Volume fraction] 49.8 % Normal 41.0-53.0 [facility] Comment on above: Performed By: #### MG Christensen PHOS #### [facility] [address] [place], [address] Hemoglobin (Bld) [Mass/Vol] 16.4 g/dL High 13.9-16.3 [facility] Comment on above: Performed By: #### MG Amparo, PHOS #### [facility] [address] [place] [address], MCH (RBC) [Entitic mass] 31.0 pg Normal 26.0-34.0 [facility] Comment on above: Performed By: #### MG Amparo, PHOS #### [facility] [address] [place] [address], MCHC (RBC) [Mass/Vol] 33.1 g/dL Normal 32.0-35.9 The [facility] Comment on above: Performed By: #### MG Amparo, PHOS #### [facility] [address] [place] [address], MCV (RBC) [Entitic vol] 94 fL Normal 80-100 T he [facility] Comment on above: Performed By: #### MG Amparo, PHOS #### S PATHOLOGY LABORATORY [address] [place] [address], Platelet mean volume (Bld) [Entitic vol] 9.5 fL Normal 7.5-11.2 [facility] Comment on above: Performed By: #### MG Amparo, PHOS #### [facility] [address] [place] [address], Platelets (Bld) [#/Vol] 148 10*3/uL Low 150-400 The [facility] Comment on above: Performed By: #### MG Amparo, PHOS #### [facility] [address] [place] [address], RBC (Bld) [#/Vol] 5.30 10*6/uL Normal 4.50-5.90 [facility] Comment on above: Performed By: #### MG Amparo, PHOS #### [facility] [address] [place] [address], WBC (Bld) [#/Vol] 8.5 10*3/uL Normal 4.5-11.5 [facility] Comment on above: Performed By: #### C H8, MG, PHOS #### [facility] [address] [place], [address] EKG 12 LEAD - PERFORMon 05-13 Diagnosis Sinus bradycardia wi th sinus arrhythmia Indeterminate axis Right bundle branch block Inferior infarct , age undetermined Abnormal ECG No previous ECGs available Confirmed by AMY WEISS ([id number]) on 05/26/2024 2:47:29 PM [facility] P wave Atrium by EKG 57 BPM [facility] P wave axis 44 degrees [facility] P-R Interval 166 ms [facility] Q-T interval 426 ms [facility] Q-T interval corrected 414 ms [facility] QRS axis -4 degrees [facility] QRS duration 118 ms [facility] T wave axis -24 degrees [facility] Patient Instructionson 05-26 [employer] Authentication Interface Message Text On the morning of your surgery, please take only the following medications, with a small sip of water: metoprolol (LOPRESSOR) 25 MG tablet busPIRone (BUSPAR) 10 MG tablet Do not take any Aspirin products 7 days before surgery. Do not take Ibuprofen, Aleve, Advil, Motrin or any other NSAIDS (celebrex, meloxicam, naproxen, diclofenac) 3 days before surgery. May take over the counter Acetaminophen (Tylenol) as needed for pain. Please hold all Vitamin E, [place] 3, fish oil and herbal supplements for 1 week prior to surgery. You will receive a call the day before surgery between 10 am and 3 pm notifying you what time to arrive for surgery. Please use this LIST to prepare for your surgery/procedure: ? Assume that any lab or testing done during your Pre-admission testing appointment is within normal limits unless otherwise contacted. ? Expect a call from [facility] one business day prior to surgery for surgery arrival time and location. ? Please plan to restart your medications the day after surgery unless otherwise explicitly instructed. ? Please contact your surgeon's/proceduralis t's office for any surgical or recovery types of questions. ? CANCELLING YOUR SURGERY/PROCEDURE: If you get a cold, are not feeling well, or become , please call your surgeon's office as soon as possible. ? Refer to your Preparing for Your Surgery/Procedure booklet or [email or web address] if you have questions. Contact the Pre-Admission Testing department at [phone] or your surgeon's office with any questions that are not answered. ? Eating and drinking before surgery: Adult Patients: No solid food after midnight night before surgery ( at least 8 hours prior surgery) May have clear liquids up to 2 hours before surgery check in time ( water ) Enhanced Recovery After Surgery (ERAS), bariatric, and endoscopy/colonoscopy patients should follow their surgeon's/proceduralis t's instructions for clear fluids prior to surgery. ON THE DAY OF SURGERY: ? DO bring your ID, insurance card, medication list, and a small amount of woodall for filling prescriptions and any medical co-pays. ? DO bring glasses if you wear contacts and other assistance items such as oxygen, inhaler, cane, walker, etc. ? Do NOT bring valuables, credit cards, or large amounts of woodall. ? Do NOT wear lotion or strong-smelling fragrance (perfume, cologne, cream or lotion). ? Do NOT wear any jewelry, (including rings, earrings, or mouth, tongue, or body piercings). Metal jewelry could cause constriction, amputation, or carpio. Loose or bulky things in your mouth can be unsafe and result in breathing problems. ? ARRANGE FOR A RIDE: If you are scheduled to go home the same day of surgery, a responsible adult MUST drive or accompany you home in a car, cab, shared ride service, or Metro-van. You will not be allowed to drive yourself home or travel home alone. Your surgery may be cancelled if you do not have a ride. A responsible adult must stay with you after surgery. Please call [email or web address] if you need transportation assistance or have concerns about going home [phone]. ? SLEEP APNEA PATIENTS: Bring your sleep apnea machine and mask. ? PLEASE BE ON TIME. A late arrival may result in the cancellation/ delay of your surgery. Thank you for choosing [facility]; it is our pleasure to care for you Normal [facility] Progress Noteson 05-26-2024 [employer] Aut[employer] Interface Message Text PRE-OP AND POST-OP HOMEGOING INSTRUCTIONS FOR SURGERY Patient instructed on Pre-Surgical Testing date 05/26/2024. Patient instructed on OR date TBD. 1. You must bring a responsible adult with you who is willing to stay in the waiting room while you are having surgery and who will take you home. 2. Your escort must drive you to and from the hospital. DO NOT ride the bus. No cab vouchers will be given. 3. If you are under 18 years of age, a parent or legal guardian must come with you. 4. DO NOT WEAR: Fingernail Palestinian Lipstick Heavy makeup Contact lenses Jewelry Wigs Dress comfortably. EXAMPLE: sweat pants, T-shirt, tennis shoes 5. Leave valuables /money at home. 6. If blood work, xrays or tests were ordered by the doctor, they MUST be done before your surgery. 7. If you are unable to keep your appointment for any reason, please notify your doctor. 8. You will be called the afternoon before your Surgery to tell you when to come to the Hospital. If you are not called, please call this number [phone] between 1 and 3 PM. AFTER SURGERY: 1. DO NOT drive a car, go back to work or school for 24hours. 2. DO NOT operate machinery or do coordinated activities for 24 hrs. 3. DO NOT drink alcoholic beverages for 24 hrs. 4. DO NOT be alarmed if you feel dizzy, tired or nauseated during the first 24 hrs. 5. A responsible adult should be with you for 24 hours after surgery. Surgical Procedure: Neck Dissection and Free Flap Patient verbalizes understanding of pre-op and post-op care and surgical procedure: Yes PRE-OPERATIVE INSTRUCTIONS Adult Patients: Adult patients may have plain water (no additives) up to 2 hours prior to surgery arrival time. Otherwise, no food or any other type of liquids for at least 8 hours prior to surgery arrival time. A small sip of water with approved morning medications on the day of surgery is acceptable. Special considerations: If a patient with diabetes is concerned about low blood sugar while being NPO, they may: Have a small sip of clear juice (ie. Apple juice or Gatorade) no later than 2 hours prior to arrival time. Alert your anesthesiologist if this occurs on the day of surgery. Normal [facility] [employer] Interface Message Text Patient identfied by name and date of Pharmacy updated Vital signs taken Patent in exam room ready for MD Normal [facility] [employer] Interface Message Text CC: Chief Complaint Patient presents with sore on tongue HPI: Quirino Cordero is a 74 year old male previously seen by Dr. Mi for a cancerous tongue lesion that's been present for several months. He's here today for pre-op regarding tongue cancer, currently scheduled for surgery on the . I hadn't had a chance to meet him, so we're establish care and discussing the procedure one more time. He has tongue pain radiating to his ear, but aside from that, no significant changes since his visit with Dr. Mi. Allergies Patient has no known allergies. Medications Current Outpatient Medications Medication Sig Dispense Refill ALPRAZolam (XANAX) 0.5 MG tablet TAKE 1 TABLET BY MOUTH AT BEDTIME IF NEEDED TO SLEEP WHILE TAKING STEROID ibuprofen (MOTRIN) 800 MG tablet Take 800 mg by mouth every 8 hours. predniSONE (DELTASONE) 10 MG tablet TAKE 4 TABLETS BY MOUTH TODAY, THEN 2 TABS ONCE DAILY FOR 4 DAYS, THEN 1 TAB ONCE DAILY FOR 4 DAYS, THEN 1/2 (ONE-HALF) TAB ONCE DAILY FOR 2 DAYS sildenafil citrate (VIAGRA) 100 MG tablet tramadol (ULTRAM) 50 MG tablet TAKE 1 TO 2 TABLETS BY MOUTH EVERY 8 HOURS NEEDED FOR TONGUE PAIN. metoprolol (LOPRESSOR) 25 MG tablet Take 25 mg by mouth 2 times a day. aspirin 81 MG tablet Take 81 mg by mouth. (Patient not taking: Reported on 05/26/2024) atorvastatin (LIPITOR) 80 mg tablet 80 mg every evening. busPIRone (BUSPAR) 10 MG tablet irbesartan (AVAPRO) 75 MG tablet every evening. latanoprost (XALATAN) 0.005 % ophthalmic solution INSTILL 1 DROP INTO EACH EYE AT BEDTIME No current facility-administered medications for this visit. Family History The patient's family history is not on file.. Social History: Social History Socioeconomic History Marital status: Unknown Tobacco Use Smoking status: Former Current packs/day: 0.00 Types: Cigarettes Quit date: 1975 Years since quittin.6 Smokeless tobacco: Never Substance and Sexual Activity Alcohol use: Not Currently Drug use: Not Currently Review of Systems - as per HPI, otherwise the balance of 10 systems is negative Physical Exam Vitals: 05/26/24 0917 Pulse: 48 Temp: 97.6 ???F (36.4 ???C) SpO2: 99% General apperance: WN/WD adult in no apparent distress, sitting in a chair Ability to communicate: normal voice without hoarseness Head and Face: Atraumatic, normocephalic; skin with no masses or lesions; sinuses nontender to palpation, face symmetric with normal movement Salivary Glands: No enlargement or tenderness of parotid or submandibular glands Ears:External ears are intact without any lesions or masses. Eyes: EOM Intact, sclera anicteric, no conjunctival injection. Nose: External nose midline Oral Cavity: Lips, gums, gingiva are normal. Tongue protrusion is midline and non-tethered. 4cm lesion of the left lateral tongue. Along the ventral aspect of the tongue as it meets the FOM, it feels like it goes deeper, at least 1cm. Good tongue mobility otherwise. The lesion has a small ulceration and is not friable. Oropharynx: the soft palate, tonsils, and lateral pharyngeal kohler are without lesions or masses; BOT is soft to palpation Larynx: poor visualization secondary to strong gag reflex Neck: soft, no LAD, thyroid gland non-enlarged CV: No clubbing/cyanosis/lana a in hands Respiration: Breathing comfortably, no stridor or stertor Neuro: A AND Ox3, Cranial nerves 2-12 intact and symmetric. Normal affect. CT Neck w/ Contrast 05/19/2024 IMPRESSION: Left oral tongue mass with metastatic adenopathy to left level III and level IV with suspecting extracapsular extension at level III. Assessment/Recommendat ions: Quirino Cordero is a 74 year old male who presents today for: 1. 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 - The plan is for partial glossectomy with reconstruction free flap, likely left forearm flap. - His Niko's test today was good, so we can do a radial form flap. - Discussed risks and benefits of surgery. Patient wants to proceed. Electronically signed by Osmany Salcido scrdana for and in the presence of Dr. Clayton Villarreal on 05/26/2024 at 9:43 AM All medical record entries made by the scribe were at my direction and personally dictated by me. I have reviewed and edited the record and confirm that the note above accurately reflects all work, treatment, procedures, and medical decision making performed by me. Clayton Villarreal MD Normal [facility] TYPE AND SCREENon 05-26-2024 ABO and Rh group Nom (Bld) Blood group O Rh(D) positive [facility] ABO and Rh group Nom (Bld) No Previous Results [facility] Comment on above: Patient REQUIRES a 2 nd sample with an order for an ABORH drawn prior to their approved surgery date of 06/10/24. Specimen meets the Blood Bank's Pre-Surgical Protocol and is valid within 30 days from date of collection but will at midnight on the approved day of surgery. Blood group antibody screen Ql Negative [facility] ABO and Rh group Nom (Bld) Blood group O Rh(D) positive Normal [facility] Comment on above: Performed By: #### T S ####[facility] [id number] [place], [place], ABO and Rh group Nom (Bld) No Previous Results Normal [facility] Comment on above: Result Comment: Elena ent REQUIRES a 2nd sample with an order for an ABORH drawn prior to their approved surgery date of 06/10/24. Specimen meets the Blood Bank's Pre-Surgical Protocol and is valid within 30 days from date of collection but will at midnight on the approved day of surgery. Performed By: #### T S ####[facility] [id number] [place], [place], ABSC INT Negative Normal [facility] Comment on above: Performed By: #### T S ####[facility] [id number] [place], [place], Tumor Board Noteon [employer] Interface Message Text Cancer Type: General Tumor Board Note Provided by Meena Munoz MD on 05/25/2024 Diagnosis: left lateral tongue SCCa (oral cavity) Tumor Board Type: ENT Brief Clinical Summary: HPI: 74 year old male with PMHHTN presented 05/11 with left sided tongue pain sicne December, seen by PCP at that time with no concern for malignancy, seen again and underwent biopsy 04/27. Has intermittent left aural pain and pain with eating. No hx of radiation or cancers. Former smoker (1/2 ppd x10 years), no significant alcohol use. On exam firm exophytic and granular left lateral tongue lesion approx 3x2 cm with no extension to mandible or base of tongue and no palpable LAD. Imaging: CT neck with Contrast (05/19): FINDINGS: Aerodigestive tract: There is a 3.9 x 1.5 x 2.6 cm enhancing mass in the left oral tongue extending toward the root of the tongue. The mass does not involve the midline structures nor the base of the tongue. Estimated DOI >10mm Lymph nodes: 1.3 cm heterogeneous node at left level III with inferior ill-defined margin suspecting extracapsular extension. 2 additional smaller nodes are present in left level III. 3 small nodes are present in the left level IV. Nonspecific nodes are left level II. Major salivary glands: Normal. Thyroid gland: Normal. Carotid space: Patent bilateral extracranial carotid and jugular systems. Paranasal sinuses, middle ears, mastoids: Clear. Brain and orbits: Imaged portions within normal limits. Bones: No fracture or aggressive osseous lesion. Lungs: Imaged portions are clear. IMPRESSION: Left oral tongue mass with metastatic adenopathy to left level III and level IV with suspecting extracapsular extension at level III. CT Chest with Contrast (05/19): FINDINGS: Cardiovasculature: Right brachiocephalic artery, left common carotid artery shares a common origin, a normal variant. The heart size is upper limits of normal. Dense mitral annular calcifications. Mild aortic valvular calcifications. Moderate three-vessel coronary artery disease. Mediastinum/Pericardiu m: Distal thoracic esophagus is underdistended, limiting the evaluation. If there is a clinical concern, this can be further evaluated with direct visualization. Air-fluid level in the mid thoracic esophagus is suggestive of reflux esophagitis. Pleura: Unremarkable Central Airways: Widely patent. Lungs: No focal consolidation. Mild background centrilobular emphysema with chronic bronchial wall thickening. There is also mild cylindrical bronchiectasis in the bilateral lower lobes. Mild subpleural reticulation in the bilateral lower lobes likely represents fibrotic changes versus dependent atelectasis. Nodules: No nodules are present that require follow up. Cluster of calcified granuloma in the right upper lobe. Lymph Nodes: Multiple prominent mediastinal and hilar lymph nodes, some of which are partially calcified. Included images of the upper abdomen: Suspect hepatic steatosis. Cholelithiasis with the largest stone in the gallbladder neck measures 11 mm. Heterogeneous appearance along the posterior medial aspect of the spleen. This is incompletely imaged in this study. Differential diagnoses include volume averaging. If indicated, this can be further evaluated with dedicated CT abdomen and pelvis. Visualized musculoskeletal structures: Degenerative disc disease is present with endplate spurring. IMPRESSION: 1. No evidence of intrathoracic metastasis. Given the patient's history of primary oral cavity malignancy, recommend continued surveillance to document stability. 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 ([facility] 04/27/24) General Information Patient name Quirino Cordero Date of / Age 3 1950 74 year old Staging Information Clinical Staging Discussed Yes Pathologic Staging Discussed NA Genetics Genetics Referral: No Genetic Testing Eligibility: No Treatment Recommendations Plan Surgery Partial glossectomy, left SND (level 1-4), free flap reconstruction Chemotherapy Pending final pathology Radiation Therapy Pending final pathology Options and Eligibility for Supportive Care Services Discussed Yes OFFICE SYSTEM ANALYST, nutrition, social work referrals previously sent Clinical Trial Eligibility Discussed No Treatment Plan Surgery Multidisciplinary Team in Attendance at Tumor Board Radiology - Yes Medical Oncology- Yes Pathology- Yes Radiation Oncology- Yes Surgery- Yes Tumor Board Recommendations [id number]. Surgery, evaluate need for radiation and chemotherapy pending final pathology. There is suspected CHARLA on imaging, though not clinically apparent, which would be indication for adjuvant chemoradiation post-operatively NCCN Requirement NCCN Requirement Fulfilled? Yes The above recommendations were based on NCCN guidelines, as well as cons (more content not included)... 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 2D sagittal and coronal reconstructions were obtained from the axial data. Before infusion of intravenous contrast, radiology personnel investigated the possibility of an allergic history and any history of reaction to iodinated contrast material. Contrast Protocol: Omnipaque 350 [>or =100lb] 75 ml [<100 lb] 1 ml per 1 lb. INTRA-PROCEDURE MEDS: iohexol (OMNIPAQUE) 350 MG/ML injection 75 mL Route: Intravenous Push FINDINGS: Cardiovasculature: Right brachiocephalic artery, left common carotid artery shares a common origin, a normal variant. The heart size is upper limits of normal. Dense mitral annular calcifications. Mild aortic valvular calcifications. Moderate three-vessel coronary artery disease. Mediastinum/Pericardiu m: Distal thoracic esophagus is underdistended, limiting the evaluation. If there is a clinical concern, this can be further evaluated with direct visualization. Air-fluid level in the mid thoracic esophagus is suggestive of reflux esophagitis. Pleura: Unremarkable Central Airways: Widely patent. Lungs: No focal consolidation. Mild background centrilobular emphysema with chronic bronchial wall thickening. There is also mild cylindrical bronchiectasis in the bilateral lower lobes. Mild subpleural reticulation in the bilateral lower lobes likely represents fibrotic changes versus dependent atelectasis. Nodules: No nodules are present that require follow up. Cluster of calcified granuloma in the right upper lobe. Lymph Nodes: Multiple prominent mediastinal and hilar lymph nodes, some of which are partially calcified. Included images of the upper abdomen: Suspect hepatic steatosis. Cholelithiasis with the largest stone in the gallbladder neck measures 11 mm. Heterogeneous appearance along the posterior medial aspect of the spleen. This is incompletely imaged in this study. Differential diagnoses include volume averaging. If indicated, this can be further evaluated with dedicated CT abdomen and pelvis. Visualized musculoskeletal structures: Degenerative disc disease is present with endplate spurring. IMPRESSION: 1. No evidence of intrathoracic metastasis. Given the patient's history of primary oral cavity malignancy, recommend continued surveillance to document stability. MACRO: None Normal [facility] Telephone Encounteron 2023 [employer] Authentication Interface Message Text Brief ENT Telephone Note Called patient to discuss recent CT Neck on 05/19/24, which showed Left oral tongue mass with metastatic adenopathy to left level III and level IV with suspecting extracapsular extension at level III. We discussed the results in detail. Plan for surgery as previously planned for 06/10/24. Scheduled to see Dr. Villarreal and GÓMEZ 05/26/24. All questions answered and pt verbalized understanding of the plan. Giorgio Mi MD Otolaryngology - Head and Neck Surgery [facility] Pager: [phone] Normal [facility] Patient Instructionson 05-20 [employer] Authentication Interface Message Text Protein Food List Protein plays an important role in promoting strength and healing. Include protein foods at each meal and even snacks. Eat protein foods first if you get full quickly. My Daily Protein Goal: _100_grams Food Amount Protein (grams) Chicken breast 3 ounces 28 Ground beef/Steak 3 ounces 26 [place] breast 3 ounces 25 Pork 3 ounces 22 Tuna 3 ounces 22 Sprague 3 ounces 22 Belizean Yogurt 1 cup 20 Tofu ??? cup 20 Cottage cheese ??? cup 14 Regular Yogurt 1 cup 11 Dunn Beans ??? cup 11 Lentils ??? cup 9 Edamame ??? cup 9 Pumpkin seeds 1 ounce 9 Cow or Soy milk (NOT ALMOND MILK) 1 cup 8 Peanut or [place] butter 2 tablespoons 8 Black or Kidney beans ??? cup 8 Chickpeas ??? cup 7 Shredded or Sliced cheese 1 ounce/1 slice 7 Almonds/Pistachios/Pea nuts 1 ounce (~25 nuts) 6-7 Egg (scrambled or boiled) 1 egg 6 Quinoa ??? 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 2D sagittal and coronal reconstructions were obtained from the axial data. Before infusion of intravenous contrast, radiology personnel investigated the possibility of an allergic history and of any history of reaction to iodinated contrast material. Contrast Protocol: Omnipaque 350 [>or =100lb] 75 ml [<100 lb] 1 ml per 1 lb. INTRA-PROCEDURE MEDS: iohexol (OMNIPAQUE) 350 MG/ML injection 75 mL Route: Intravenous Push FINDINGS: Aerodigestive tract: There is a 3.9 x 1.5 x 2.6 cm enhancing mass in the left oral tongue extending toward the root of the tongue. The mass does not involve the midline structures nor the base of the tongue. Lymph nodes: 1.3 cm heterogeneous node at left level III with inferior ill-defined margin suspecting extracapsular extension. 2 additional smaller nodes are present in left level III. 3 small nodes are present in the left level IV. Nonspecific nodes are left level II. Major salivary glands: Normal. Thyroid gland: Normal. Carotid space: Patent bilateral extracranial carotid and jugular systems. Paranasal sinuses, middle ears, mastoids: Clear. Brain and orbits: Imaged portions within normal limits. Bones: No fracture or aggressive osseous lesion. Lungs: Imaged portions are clear. IMPRESSION: Left oral tongue mass with metastatic adenopathy to left level III and level IV with suspecting extracapsular extension at level III. MACRO: None Normal [facility] Progress Noteson 05-19-2024 [employer] Authentication Interface Message Text Documentation: Mode: Video Consent: This visit was initiated by the patient. Audio and visual communication was utilized in real-time. I confirmed understanding of risks and benefits of telehealth visits and obtained consent to proceed with the telemedicine visit. Location of Patient: Home of patient ADULT NUTRITION ASSESSMENT Reason for Referral: Squamous Cell Carcinoma of Oral Cavity Referring Provider: Dr. Mi Chief Complaint: know what to eat for surgery Assessment Client PMH: Quirino Cordero is a 74 year old male referred to Medical Nutrition Therapy to treat Oncology Nutrition. No past medical history on file. No past surgical history on file. has No Known Allergies. Medication: Current Outpatient Medications: aspirin 81 MG tablet, Take 81 mg by mouth., Disp: , Rfl: atorvastatin (LIPITOR) 80 mg tablet, 80 mg., Disp: , Rfl: busPIRone (BUSPAR) 10 MG tablet, , Disp: , Rfl: irbesartan (AVAPRO) 75 MG tablet, , Disp: , Rfl: latanoprost (XALATAN) 0.005 % ophthalmic solution, INSTILL 1 DROP INTO EACH EYE AT BEDTIME, Disp: , Rfl: Vitamins/Minerals: Vitamin D3 Biochemical Data/Medical testing/Procedures: No results found for: HBA1C Lipids (last 3 years, up to 8 values) No lab values to display. BMP (last 3 years, up to 8 values) No lab values to display. CBC (last 3 years, up to 8 values) No lab values to display. LFT's (last 3 years, up to 8 values) No lab values to display. Anthropometric Measurements: Weight: 236# Height: 67 BMI: 37.0 UBW: 220-240# Adj BW: 170# BP Readings from Last 1 Encounters: 05/11/24 151/85 Weight history: Wt Readings from Last 10 Encounters: 05/11/24 236 lb 1.6 oz (107.1 kg) Food/Nutrition-Related History: Appetite: good Supplements: none GI Sx: None Urine: Yellow Dentition: Dentures - ill-fitting, wears top plate while eating Allergies/Intolerance: None 24 Hour Recall: B: none Snack: none L: breakfast sausage skillet/eggs, toast Snack: none D: hot dogs (2) Snack: none Beverages: Icee water (1 bottle), sugar-free iced tea, diet root beer, water (3 glasses) Shopping and cooking: spouse/self Dining out: 2-3 Days a week. Household size: 2 Food Assistance: None Adequate food supply and adequate cooking and storing equipment: all Social History: Substance use: none Smoking: none Alcohol: none Physical Activity: Yard work Nutrition Focused Physical Exam: Muscle loss: Confucianism region: not assessed Clavicle region: not assessed Scapula region: not assessed Hand: not assessed Anterior thigh: not assessed Posterior calf: not assessed Fat loss: Orbital region: not assessed Tricep/bicep region: not assessed Rib/back region: not assessed Edema: not assessed Estimated Needs: 8626-4282 kcal/d 30-35 kcal/kg Adj BW 100-116 g pro/d 1.3-1.5 g pro/kg Adj BW 7418-2636 mL/d fluid Assessment for Malnutrition: At risk for malnutrition 74 y/o M with PMHx of HTN and former smoker. Diagnosed with SCCa of the L tongue, [id number]. Plan for partial glossectomy, L neck dissection and free flap reconstruction on 06/10. Spoke with pt's during visit, pt was in the room but not on video call. Reports some pain with eating, does not feel like it has stopped his PO intake. Typically does not eat breakfast. Reports typical wt 220-240#, fluctuating around the year. Per OFFICE SYSTEM ANALYST, pt recommended Dental Mechanical Soft and Thin Liquids. Educated pt's on importance of good PO intake and meeting protein goals to prepare pt for surgery, focusing on small/frequent meals and including protein with all meals/snacks. Discussed using protein shakes to help meet protein goals as snacks between meals. Reviewed plan for likely NG post-op, in-patient team to review with pt's how to use NG and supplies will be delivered to home/pt's room. All written materials in AVS. Continue to follow. Nutrition Diagnosis: 1. Increased nutrient needs kcal/pro r/t increased demand for nutrients AEB conditions associated with a diagnosis or treatment Nutrition Interventions: Initial/brief nutrition education Protein Food List Monitoring/Goals: 1. Goal to eat 6-8 small/frequent meals, eating every 2-3 hours, regardless of hunger queues 2. Include a protein source with all meals/snacks, goal for 100 grams/d 3. 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 Referrals: None Total time spent with patient-30 minutes, of which 30 minutes was spent counseling. MNT Time: 2 units Visit Time: 1 of 3 approved visits MARISA Womack, RD, LD Pager [phone] Normal [facility] Progress Noteson 05-11-2024 [employer] Authentication Interface Message Text Identification was verified by patient verbalizing his name and date of . Normal [facility] [employer] Authentication Interface Message Text OTOLARYNGOLOGY - HEAD AND NECK SURGERY CLINIC NOTE CHIEF COMPLAINT: Chief Complaint Patient presents with New patient, to establish relationship Tongue mass HPI: Quirino Cordero is a 74 year old male with PMH significant for HTN who presents today, 05/11/2024, at [facility] at the request of Referring Provider: Bartolo Child for my opinion and further evaluation of tongue mass. Recent biopsy + SCCa. Today, pt reports left sided tongue soreness that started in December. He was seen by PCP and ENT and there were not concerns for malignancy at that time. He continued to have persistent symptoms and then obtained recent biopsy but was unaware of biopsy results until visit today. He feels like it's relatively stable size. Associated with intermittent left aural pain. Reports pain with eating. Denies fevers, chills, unintentionalweight loss, night sweats, otalgia, sore throat, oral bleeding, dysphagia, odynophagia, voice changes, shortness of breath, hemoptysis or new lesions/masses. Denies history of radiation or previous of head/neck surgery other than dental extractions. Denies history of cardiac or pulmonary issues. Able to walk/up downstairs without issues. Not currently on any anticoagulation or antiplatelet therapy. Former smoker (1/2 ppd x 10 yrs). Denies history of significant alcohol use. Now retired. ROS: Constitutional: Negative for fever, chills, and weight loss overweight gain. Skin: Negative for rash, itchiness, dryness HENT: Negative for ear pain, sore throat and hoarseness. Negative for difficulty swallowing. Cardiovascular: Negative for chest pain and dyspnea on exertion (Can climb up 2 floors). Respiratory: Negative for shortness of breath and increased work of breathing. Gastrointestinal: Negative for nausea and vomiting. Neurological: Negative for headaches. Lymph/Heme: Negative for lymphadenopathy or easy bruising Musculoskeletal: Negative for joint or muscle pain Psychiatric: The patient is not nervous/anxious. All other systems are negative except for that listed in the HPI. Past Medical/Surgical History: He has no past medical history on file. His has no past surgical history on file. Past Family/Social History: His family history is not on file. He reports that he quit smoking about 49 years ago. His smoking use included cigarettes. He has never used smokeless tobacco. Medications/Allergies/ Immunizations: His current medication(s) include: @CMEDLISTP@ Allergies: Patient has no known allergies., Immunizations: Immunization History Administered Date(s) Administered Influenza, injectable, high-dose seasonal, quadrivalent, 0.7 mL, preservative free (SFN=252) 08/09/2022 Influenza, injectable, quadrivalent, preservative free (IIV4) (FDO=555) 08/04/2018, 08/04/2019 Influenza, injectable, trivalent (IIV3) (ASZ=652) 07/30/2017 Influenza, seasonal vaccine, quadrivalent, adjuvanted, 0.5mL dose, preservative free (BBQ=632) 07/13/2020, 08/13/2021 Moderna Bivalent (6m-5y dose 1 or 2, 25 mcg/0.25 mL; 6-11y any dose, 25 mcg/0.25 mL; 12+ yrs any dose, 50 mcg/0.5 mL) COVID-19, mRNA, (VQK=470) 10/14/2022 Moderna Monovalent (12+ yrs) COVID-19 vaccine, mRNA, spike protein, LNP, PF, 100 mcg/0.5 mL (NVJ=196) 12/28/2020, 01/25/2021, 09/14/2021, 03/19/2022 Pneumococcal conjugate 13 valent (PCV13) (UHU=767) 04/13/2015, 08/04/2019 Pneumococcal conjugate 20 valent (PCV20), polysaccharide [id number] conjugate, adjuvant, PF (TKP=475) 07/22/2023 Pneumococcal polysaccharide 23 Valent (PPSV23) (CVX=33) 04/16/2016, 08/08/2020 Tdap (BLA=721) 04/13/2015 Zoster Recombinant (RZV,Shingles) (VEK=137) 08/04/2023, 10/20/2023 PHYSICAL EXAM: Vital Signs: BP 151/85 Pulse 66 Temp 97.3 ???F (36.3 ???C) (Temporal) Resp 20 Ht 5' 7 (1.702 m) Wt 236 lb 1.6 oz (107.1 kg) Comment: clothed SpO2 98% BMI 36.98 kg/m??? General: Well-developed, well-nourished. In no acute distress. Communication and Voice: Clear pitch and clarity Respiratory Respiratory effort: Equal inspiration and expiration without stridor Neuro: Appropriate mood and affect; Cranial nerves II-XII are intact Head and Face Inspection: Normocephalic and atraumatic without mass or lesion Palpation: Facial skeleton intact without bony stepoffs Facial Strength: Facial motility symmetric and full bilaterally Eyes: No nystagmus with normal extraocular motion bilaterally ENT External nose: No scar or anatomic deformity TMJ: No pain to palpation with full mobility Salivary Glands: No mass or tenderness Lips: No lesion. Oral cavity: Moist mucosa. Firm, relatively exophytic and granular left lateral tongue lesion (approx 3 x 2 cm) with no extension onto the mandible or into base of tongue. Oropharynx: No mass or lesion. Tonsillar fossa symmetric. Base of tongue soft without mass or induration on palpation Larynx: Unable to fully visualize larynx on indirect mirror laryngoscopy due to gag reflex (more content not included)... Normal [facility] Basophil percentageOrdered B y: Salvador Brown on 01-20-2024 Chloride [Moles/Vol] 111 mmol/L 98-107 [facility] Glucose [Mass/Vol] 118 mg/dL 74-106 [facility] Comment on above: Fasting Glucose resu lt from 100 to 125 mg/dL suggests IMPAIRED HOMEOSTASIS per A.D.A. criteria. Potassium [Moles/Vol] 3.9 mmol/L 3.5-5.1 [facility] Sodium [Moles/Vol] 141 mmol/L 136-145 [facility] Laboratory - Chemistry and C hemistry - challengeOrdered By: Salvador Brown on 01-20-2024 CO2 [Moles/Vol] 24.0 mmol/L 21.0-32.0 [facility] Urea nitrogen/Creatinine [Mass ratio] 19.4 mg/mg 10-20 [facility] No Panel InformationOrdered By: Salvador Brown on 01-20-2024 Estimated GFR (MDRD) Amer 64 mL/min >60 [facility] Comment on above: GFR Calc Estimated GFR (MDRD) Non-Af Amer 53 mL/min >60 [facility] Comment on above: Non- GFR Calc Urine Microalbumin/Creatinine Ratio 9.0 mg/g CRE <30 [facility] Serum or plasma calcium peewee urement (mass/volume)Ordered By: Salvador Brown on 01-20-2024 Calcium [Mass/Vol] 9.1 mg/dL 8.5-10.1 [facility] Serum or plasma creatinine m easurement (mass/volume)Ordered By: Salvador Brown on 01-20-2024 Creatinine [Mass/Vol] 1.39 mg/dL 0.70-1.30 [facility] Comment on above: The validity of the calculated GFR & GFRAA in patients over 70 years has not been determined. Clinical correlation is essential. Serum or plasma urea nitroge n measurement (mass/volume)Ordered By: Salvador Brown on 01-20-2024 Urea nitrogen [Mass/Vol] 27 mg/dL 7-18 [facility] Thin prep Papanicolaou smear with manual screeningOrdered By: Salvador Brown on 01-20-2024 Thin prep Papanicolaou smear with manual screening 6 5-15 [facility] Thin prep Papanicolaou smear with manual screening 10.6 mg/L NO RANGE EST. [facility] Urine creatinine measurement (mass/volume)Ordered By: Salvador Brown on 01-20-2024 Creatinine (U) [Mass/Vol] 118.00 mg/dL NO RANGE EST. [facility] Absolute lymphocyte countOrd ered By: Salvador Brown on 07-22-2023 Lymphocytes Auto (Unsp spec) [#/Vol] 1.91 10*3/uL 0.83-4.51 [facility] Basophil percentageOrdered B y: Salvador Brown on 07-22-2023 Basophils/100 WBC (Bld) 0.3 % 0-1 [facility] Bilirubin [Mass/Vol] 1.00 mg/dL 0.20-1.00 [facility] Comment on above: For patients on eltr ombopag therapy, use of Dimension [place] TBIL is not recommended. Chloride [Moles/Vol] 106 mmol/L 98-107 [facility] Cholesterol [Mass/Vol] 147 mg/dL <200 [facility] Comment on above: <200 mg/dL Desirable 200-240 mg/dL Borderline >240 mg/dL High Risk Eosinophils/100 WBC (Bld) 2.6 % 0-5 [facility] Glucose [Mass/Vol] 103 mg/dL 74-106 [facility] Comment on above: Fasting Glucose resu lt from 100 to 125 mg/dL suggests IMPAIRED HOMEOSTASIS per A.D.A. criteria. Neutrophils (Bld) [#/Vol] 4.3 10*3/uL 2.0-7.7 [facility] Neutrophils/100 WBC (Bld) 61.7 % 47-70 [facility] Potassium [Moles/Vol] 4.4 mmol/L 3.5-5.1 [facility] Protein [Mass/Vol] 7.2 g/dL 6.4-8.2 [facility] Sodium [Moles/Vol] 138 mmol/L 136-145 [facility] WBC (Bld) [#/Vol] 7.0 10*3/uL 4.4-11.0 [facility] Blood erythrocytes count (nu mber/volume)Ordered By: Salvador Brown on 07-22-2023 RBC (Bld) [#/Vol] 5.01 10*6/uL 4.6-6.2 [facility] Blood hemoglobin measurement (mass/volume)Ordered By: Salvador Brown on 07-22-2023 Hemoglobin (Bld) [Mass/Vol] 15.2 g/dL 13.0-16.5 [facility] Blood lymphocytes/100 leukoc ytesOrdered By: Salvador Brown on 07-22-2023 Lymphocytes/100 WBC (Bld) 27.4 % 19-41 [facility] Blood monocytes/100 leukocyt esOrdered By: Salvador Brown on 07-22-2023 Monocytes/100 WBC (Bld) 7.7 % 0-10 [facility] Blood platelet mean volumeOr dered By: Salvador Brown on 07-22-2023 Platelet mean volume (Bld) [Entitic vol] 11.3 fL 6.2-12.0 [facility] Determination of erythrocyte mean corpuscular volume (MCV)Ordered By: Salvador Brown on 07-22-2023 MCV (RBC) [Entitic vol] 95.4 fL 80-94 [facility] Hematocrit Auto (Bld) [Volum e fraction]Ordered By: Salvador Brown on 07-22-2023 Hematocrit (Bld) [Volume fraction] 47.8 % 40-54 [facility] Laboratory - Chemistry and C hemistry - challengeOrdered By: Salvador Brown on 07-22-2023 ALP [Catalytic activity/Vol] 89 U/L 45-117 [facility] ALT [Catalytic activity/Vol] 36 U/L 16-61 [facility] CO2 [Moles/Vol] 27.0 mmol/L 21.0-32.0 [facility] Globulin (S) [Mass/Vol] 3.6 g/dL 2.2-4.2 [facility] Urea nitrogen/Creatinine [Mass ratio] 18.3 mg/mg 10-20 [facility] Laboratory - Hematology and Cell countsOrdered By: Salvador Brown on 07-22-2023 Erythrocyte distribution width (RBC) [Entitic vol] 48.0 fL 35.1-43.9 [facility] Erythrocyte distribution width (RBC) [Ratio] 13.6 % 11.6-14.6 [facility] Immature granulocytes/100 WBC (Bld) 0.300 % 0.0-0.9 [facility] Comment on above: IG% - Immature Granu locytes (promyelocytes, myelocytes and metamyelocytes) > 1% indicates that a LEFT SHIFT is Present. MCH (RBC) [Entitic mass] 30.3 pg 27.0-32.0 [facility] Nucleated RBC/100 WBC (Bld) [Ratio] 0 % 0-5 [facility] MCHC Auto (RBC) [Mass/Vol]Or dered By: Salvador Brown on 07-22-2023 MCHC (RBC) [Mass/Vol] 31.8 g/dL 32-36 [facility] No Panel InformationOrdered By: Salvador Brown on 07-22-2023 Estimated GFR (MDRD) Amer 80 mL/min >60 [facility] Comment on above: GFR Calc Estimated GFR (MDRD) Non-Af Amer 66 mL/min >60 [facility] Comment on above: Non- GFR Calc Prostate Specific Antigen Total 3.72 ng/mL 0.0-4.0 [facility] Comment on above: This test was perfor med using the TPSA assay method for the[employer] chemistry system. Values obtained with differentassay methods cannot be used interchangably.When changing PSA assays in the course of monitoring apatient, additional sequential testing should be carriedout to confirm baseline values. Thyroid Stimulating Hormone (TSH) 1.73 uIU/mL 0.358-3.74 [facility] Platelets bldOrdered By: Valery Brown on 07-22-2023 Platelets (Bld) [#/Vol] 181 10*3/uL 150-450 [facility] Serum or plasma albumin peewee urement (mass/volume)Ordered By: Salvador Brown on 07-22-2023 Albumin [Mass/Vol] 3.6 g/dL 3.2-5.0 [facility] Serum or plasma albumin/glob ulin mass ratioOrdered By: Salvador Brown on 07-22-2023 Albumin/Globulin [Mass ratio] 1.0 {ratio} 0.9-2.4 [facility] Serum or plasma calcium peewee urement (mass/volume)Ordered By: Salvador Brown on 07-22-2023 Calcium [Mass/Vol] 8.8 mg/dL 8.5-10.1 [facility] Serum or plasma cholesterol in HDL measurement (mass/volume)Ordered By: Salvador Brown on 07-22-2023 Cholesterol in HDL [Mass/Vol] 28 mg/dL >40 [facility] Comment on above: The drugs N-Acetylcy steine and Metamizole may falsely depress this assay. Reference Range HDL <40 mg/dL Low HDL Cholesterol HDL >or= 60 mg/dL High HDL Cholesterol Serum or plasma creatinine m easurement (mass/volume)Ordered By: Salvador Brown on 07-22-2023 Creatinine [Mass/Vol] 1.15 mg/dL 0.70-1.30 [facility] Comment on above: The validity of the calculated GFR & GFRAA in patients over 70 years has not been determined. Clinical correlation is essential. Serum or plasma urea nitroge n measurement (mass/volume)Ordered By: Salvador Brown on 07-22-2023 Urea nitrogen [Mass/Vol] 21 mg/dL 7-18 [facility] Thin prep Papanicolaou smear with manual screeningOrdered By: Salvador Brown on 07-22-2023 Thin prep Papanicolaou smear with manual screening 29 U/L 15-37 [facility] Thin prep Papanicolaou smear with manual screening 5 5-15 [facility] Basophil percentageOrdered B y: Dr. Brown on 12-31-2022 Bilirubin [Mass/Vol] 1.30 mg/dL 0.20-1.00 [facility] Comment on above: For patients on eltr ombopag therapy, use of Dimension [place] TBIL is not recommended. Chloride [Moles/Vol] 103 mmol/L 98-107 [facility] Glucose [Mass/Vol] 79 mg/dL 74-106 [facility] Potassium [Moles/Vol] 4.9 mmol/L 3.5-5.1 [facility] Protein [Mass/Vol] 7.6 g/dL 6.4-8.2 [facility] Sodium [Moles/Vol] 138 mmol/L 136-145 [facility] Laboratory - Chemistry and C hemistry - challengeOrdered By: Dr. Brown on 12-31-2022 ALP [Catalytic activity/Vol] 66 U/L 45-117 [facility] ALT [Catalytic activity/Vol] 34 U/L 16-61 [facility] CO2 [Moles/Vol] 28.0 mmol/L 21.0-32.0 [facility] Globulin (S) [Mass/Vol] 3.4 g/dL 2.2-4.2 [facility] Urea nitrogen/Creatinine [Mass ratio] 18.2 mg/mg 10-20 [facility] No Panel InformationOrdered By: Dr. Brown on 12-31-2022 Estimated GFR (MDRD) Amer 68 mL/min >60 [facility] Comment on above: GFR Calc Estimated GFR (MDRD) Non-Af Amer 56 mL/min >60 [facility] Comment on above: Non- GFR Calc Serum or plasma albumin peewee urement (mass/volume)Ordered By: Dr. Brown on 12-31-2022 Albumin [Mass/Vol] 4.2 g/dL 3.2-5.0 [facility] Serum or plasma albumin/glob ulin mass ratioOrdered By: Dr. Brown on 12-31-2022 Albumin/Globulin [Mass ratio] 1.2 {ratio} 0.9-2.4 [facility] Serum or plasma calcium peewee urement (mass/volume)Ordered By: Dr. Brown on 12-31-2022 Calcium [Mass/Vol] 9.6 mg/dL 8.5-10.1 [facility] Serum or plasma creatinine m easurement (mass/volume)Ordered By: Dr. Brown on 12-31-2022 Creatinine [Mass/Vol] 1.32 mg/dL 0.70-1.30 [facility] Comment on above: The validity of the calculated GFR & GFRAA in patients over 70 years has not been determined. Clinical correlation is essential. Serum or plasma urea nitroge n measurement (mass/volume)Ordered By: Dr. Brown on 12-31-2022 Urea nitrogen [Mass/Vol] 24 mg/dL - [facility] Thin prep Papanicolaou smear with manual screeningOrdered By: Dr. Brown on 12-31-2022 Thin prep Papanicolaou smear with manual screening 32 U/L 15-37 [facility] Thin prep Papanicolaou smear with manual screening 7 5-15 [facility] Basophil percentageon 2021 Bilirubin [Mass/Vol] 1.00 mg/dL 0.20-1.00 [facility] Work Phone: Comment on above: For patients on eltr ombopag therapy, use of Dimension [place] TBIL is not recommended. Chloride [Moles/Vol] 109 mmol/L 98-107 [facility] Work Phone: Cholesterol [Mass/Vol] 147 mg/dL <200 [facility] Work Phone: Comment on above: <200 mg/dL Desirable 200-240 mg/dL Borderline >240 mg/dL High Risk Glucose [Mass/Vol] 115 mg/dL 74-106 [facility] Work Phone: Comment on above: Fasting Glucose resu lt from 100 to 125 mg/dL suggests IMPAIRED HOMEOSTASIS per A.D.A. criteria. Potassium [Moles/Vol] 4.3 mmol/L 3.5-5.1 [facility] Work Phone: Protein [Mass/Vol] 7.3 g/dL 6.4-8.2 [facility] Work Phone: Sodium [Moles/Vol] 139 mmol/L 136-145 [facility] Work Phone: Triglyceride [Mass/Vol] 134 mg/dL <199 [facility] Work Phone: Comment on above: The drugs N-Acetylcy steine and Metamizole may falsely depress this assay.Serum Triglycerides Reference Interval Normal <150 mg/dL Borderline high 150 - 199 mg/dL High 200 - 499 mg/dL Very High > or = 500 mg/dL Laboratory - Chemistry and C hemistry - challengeon 07-30-2022 ALP [Catalytic activity/Vol] 77 U/L 45-117 [facility] Work Phone: ALT [Catalytic activity/Vol] 35 U/L 16-61 [facility] Work Phone: CO2 [Moles/Vol] 25.0 mmol/L 21.0-32.0 [facility] Work Phone: Globulin (S) [Mass/Vol] 3.6 g/dL 2.2-4.2 [facility] Work Phone: Urea nitrogen/Creatinine [Mass ratio] 17.2 mg/mg 10-20 [facility] Work Phone: No Panel Informationon 07-30 Estimated GFR (MDRD) Amer 71 mL/min >60 [facility] Work Phone: Comment on above: GFR Calc Estimated GFR (MDRD) Non-Af Amer 59 mL/min >60 [facility] Work Phone: Comment on above: Non- GFR Calc Urine Microalbumin/Creatinine Ratio 7.2 mg/g CRE <30 [facility] Work Phone: Vitamin D 25-Hydroxy 33.7 ng/mL [facility] Work Phone: Comment on above: Vitamin D 25(OH) Sta tus Range Deficiency <20 ng/mL (50nmol/L) Insufficiency 20 - 30 ng/mL (50 - 75 nmol/L) Sufficiency 30 - 100 ng/mL (75 - 250 nmol/L) Toxicity >100 ng/mL (>250 nmol/L) Serum or plasma albumin peewee urement (mass/volume)on 07-30-2022 Albumin [Mass/Vol] 3.7 g/dL 3.2-5.0 [facility] Work Phone: Serum or plasma albumin/glob ulin mass ratioon 07-30-2022 Albumin/Globulin [Mass ratio] 1.0 {ratio} 0.9-2.4 [facility] Work Phone: Serum or plasma calcium peewee urement (mass/volume)on 07-30-2022 Calcium [Mass/Vol] 9.7 mg/dL 8.5-10.1 [facility] Work Phone: Serum or plasma cholesterol in HDL measurement (mass/volume)on 07-30-2022 Cholesterol in HDL [Mass/Vol] 29 mg/dL >40 [facility] Work Phone: Comment on above: The drugs N-Acetylcy steine and Metamizole may falsely depress this assay. Reference Range HDL <40 mg/dL Low HDL Cholesterol HDL >or= 60 mg/dL High HDL Cholesterol Serum or plasma cholesterol in VLDL measurement (mass/volume)on 07-30-2022 Cholesterol in VLDL [Mass/Vol] 27 mg/dL 5-40 [facility] Work Phone: Serum or plasma creatinine m easurement (mass/volume)on 07-30-2022 Creatinine [Mass/Vol] 1.28 mg/dL 0.70-1.30 [facility] Work Phone: Comment on above: The validity of the calculated GFR & GFRAA in patients over 70 years has not been determined. Clinical correlation is essential. Serum or plasma low density lipoprotein (LDL) cholesterol measurement (mass/volume)on 07-30-2022 Cholesterol in LDL [Mass/Vol] 91 mg/dL 0-130 [facility] Work Phone: Serum or plasma urea nitroge n measurement (mass/volume)on 07-30-2022 Urea nitrogen [Mass/Vol] 22 mg/dL -18 [facility] Work Phone: Thin prep Papanicolaou smear with manual screeningon 07-30-2022 Thin prep Papanicolaou smear with manual screening 27 U/L 15-37 [facility] Work Phone: Thin prep Papanicolaou smear with manual screening 5 5-15 [facility] Work Phone: Thin prep Papanicolaou smear with manual screening 8.7 mg/L NO RANGE EST. [facility] Work Phone: Urine creatinine measurement (mass/volume)on 07-30-2022 Creatinine (U) [Mass/Vol] 120.00 mg/dL NO RANGE EST. [facility] Work Phone: Basophil percentageon 2021 Basophil percentage 3.4 mg/dL 2.5-4.9 [facility] Work Phone: Chloride [Moles/Vol] 110 mmol/L 98-107 [facility] Work Phone: Glucose [Mass/Vol] 101 mg/dL 74-106 [facility] Work Phone: Comment on above: Fasting Glucose resu lt from 100 to 125 mg/dL suggests IMPAIRED HOMEOSTASIS per A.D.A. criteria. Potassium [Moles/Vol] 4.3 mmol/L 3.5-5.1 [facility] Work Phone: Sodium [Moles/Vol] 139 mmol/L 136-145 [facility] Work Phone: Testosterone [Mass/Vol] 415 ng/dL [facility] Work Phone: Comment on above: Adult male reference interval is based on a population ofhealthy nonobese males (BMI <30) between 19 and 39 yearsold. Shawn et.al. JCEM 2017,102;[id number]. PMID:[id number]. Free testosterone percentage on 01-11-2022 Testosterone Free/Testosterone.total [Mass fraction] 2.41 % [facility] Work Phone: Comment on above: Performed at: [facility]ric [address] [id number] Director: Dimitris Russell PhD, Phone: [phone] at: [facility] [place] [id number] Director: Shanel Coley MD, Phone: [phone] Laboratory - Chemistry and C hemistry - challengeon 01-11-2022 CO2 [Moles/Vol] 24.0 mmol/L 21.0-32.0 [facility] Work Phone: Urea nitrogen/Creatinine [Mass ratio] 21.9 mg/mg 10-20 [facility] Work Phone: No Panel Informationon 01-11 Estimated GFR (MDRD) Amer 66 mL/min >60 [facility] Work Phone: Comment on above: GFR Calc Estimated GFR (MDRD) Non-Af Amer 54 mL/min >60 [facility] Work Phone: Comment on above: Non- GFR Calc Prostate Specific Antigen Total 4.49 ng/mL 0.0-4.0 [facility] Work Phone: Comment on above: This test was perfor med using the TPSA assay method for [employer] chemistry system. Values obtained with differentassay methods cannot be used interchangably.When changing PSA assays in the course of monitoring apatient, additional sequential testing should be carriedout to confirm baseline values. Serum or plasma albumin peewee urement (mass/volume)on 01-11-2022 Albumin [Mass/Vol] 3.9 g/dL 3.2-5.0 [facility] Work Phone: Serum or plasma calcium peewee urement (mass/volume)on 01-11-2022 Calcium [Mass/Vol] 9.3 mg/dL 8.5-10.1 [facility] Work Phone: Serum or plasma creatinine m easurement (mass/volume)on 01-11-2022 Creatinine [Mass/Vol] 1.37 mg/dL 0.70-1.30 [facility] Work Phone: Comment on above: The validity of the calculated GFR & GFRAA in patients over 70 years has not been determined. Clinical correlation is essential. Serum or plasma testosterone free measurement (mass/volume)on 01-11-2022 Testosterone Free [Mass/Vol] 10.00 ng/dL [facility] Work Phone: Serum or plasma urea nitroge n measurement (mass/volume)on 01-11-2022 Urea nitrogen [Mass/Vol] 30 mg/dL 04-29 [facility] Work Phone: Vital Signs Date Time Vital Sign Value Performing Clinician Facility 05-30-2025 10:10-0400 Body height 170.[address] Salvador Brown MD Work Phone: [facility] 05-30-2025 10:10-0400 Body mass index (BMI) [Ratio] 30.7 kg/m2 Dr. Salvador Brown MD Work Phone: 0(462)340-418797 [place] [address] 05-30-2025 10:10-0400 Body temperature 98 [degF] Dr. Salvador Brown MD Work Phone: 4(706)198-498797 [place] [address] 05-30-2025 10:10-0400 Body weight 88.[address] Salvador Brown MD Work Phone: [facility] 05-30-2025 10:10-0400 Diastolic blood pressure 69 mm[Hg] Dr. Salvador Brown MD Work Phone: [facility] 05-30-2025 10:10-0400 Heart rate 47 /min Dr. Salvador Brown MD Work Phone: [facility] 05-30-2025 10:10-0400 Respiratory rate 18 /min Dr. Salvador Brown MD Work Phone: [facility] 05-30-2025 10:10-0400 SaO2% (BldA) [Mass fraction] 98 % Dr. Salvador Brown MD Work Phone: [facility] 05-30-2025 10:10-0400 Systolic blood pressure 118 mm[Hg] Dr. Salvador Brown MD Work Phone: [facility] 03-02-2025 09:16-0400 Body mass index (BMI) [Ratio] 30.84 kg/m2 Clayton Villarreal MD Work Phone: [facility] 03-02-2025 09:16-0400 Body temperature 97.81 [degF] Clayton Villarreal MD Work Phone: [facility] 03-02-2025 09:16-0400 Body weight 89.31 kg Clayton Villarreal MD Work Phone: [facility] 03-02-2025 09:16-0400 Heart rate 50 /min Clayton Villarreal MD Work Phone: [facility] 03-02-2025 09:16-0400 SaO2% (BldA) [Mass fraction] 99 % Clayton Villarreal MD Work Phone: [facility] 01-25-2025 15:50-0400 Body height 170.[address] Salvador Brown MD Work Phone: [facility] 01-25-2025 15:50-0400 Body weight 91.[address] Salvador Brown MD Work Phone: [facility] 12-14-2024 13:33-0500 Body height 170.[address] Salvador Brown MD Work Phone: [facility] 12-14-2024 13:33-0500 Body weight 91.[address] Salvador Brown MD Work Phone: [facility] 12-14-2024 11:22-0500 Body mass index (BMI) [Ratio] 31.6 kg/m2 Dr. Salvador Brown MD Work Phone: [facility] 12-14-2024 11:22-0500 Body temperature 97.9 [degF] Dr. Salvador Brown MD Work Phone: [facility] 12-14-2024 11:22-0500 Body weight 91.[address] Salvador Brown MD Work Phone: [facility] 12-14-2024 11:22-0500 Diastolic blood pressure 75 mm[Hg] Dr. Salvador Brown MD Work Phone: 7(495)025-063797 [place] [address] 12-14-2024 11:22-0500 Heart rate 56 /min Dr. Salvador Brown MD Work Phone: 5(902)736-154897 [place] [address] 12-14-2024 11:22-0500 Respiratory rate 16 /min Dr. Salvador Brown MD Work Phone: 6(616)835-991697 [place] [address] 12-14-2024 11:22-0500 SaO2% (BldA) [Mass fraction] 98 % Dr. Salvador Brown MD Work Phone: 5(465)839-875197 [place] [address] 12-14-2024 11:22-0500 Systolic blood pressure 131 mm[Hg] Dr. Salvador Brown MD Work Phone: 2(630)600-609957 [place] [address] 12-14-2024 11:07-0500 Body mass index (BMI) [Ratio] 31.6 kg/m2 Dr. Salvador Brown MD Work Phone: 6(683)464-322697 [place] [address] 12-14-2024 11:07-0500 Body temperature 97.9 [degF] Dr. Salvador Brown MD Work Phone: 7(366)635-263597 [place] [address] 12-14-2024 11:07-0500 Diastolic blood pressure 75 mm[Hg] Dr. Salvador Brown MD Work Phone: 4(924)341-178057 [place] [address] 12-14-2024 11:07-0500 Heart rate 56 /min Dr. Salvador Brown MD Work Phone: 3(335)398-387557 [place] [address] 12-14-2024 11:07-0500 Respiratory rate 18 /min Dr. Salvador Brown MD Work Phone: 6(305)307-296697 [place] [address] 12-14-2024 11:07-0500 SaO2% (BldA) [Mass fraction] 98 % Dr. Salvador Brown MD Work Phone: 6(895)437-945297 [place] [address] 12-14-2024 11:07-0500 Systolic blood pressure 131 mm[Hg] Dr. Salvador Brown MD Work Phone: 5(765)446-678597 [place] [address] 11-15-2024 11:20-0500 Body weight 94.[address] Salvador Brown MD Work Phone: 8(292)936-872257 [place] [address] 09-29-2024 08:37-0500 Body temperature 97.7 [degF] Clayton Villarreal MD Work Phone: [facility] 09-29-2024 08:37-0500 Heart rate 55 /min Clayton Villarreal MD Work Phone: [facility] 09-29-2024 08:37-0500 SaO2% (BldA) [Mass fraction] 100 % Clayton Villarreal MD Work Phone: [facility] 09-27-2024 08:30-0500 Body mass index (BMI) [Ratio] 33.5 kg/m2 Dr. Salvador Brown MD Work Phone: [facility] 09-27-2024 08:30-0500 Body temperature 97.2 [degF] Dr. Salvador Brown MD Work Phone: [facility] 09-27-2024 08:30-0500 Body weight 97.[address] Salvador Brown MD Work Phone: [facility] 09-27-2024 08:30-0500 Diastolic blood pressure 71 mm[Hg] Dr. Salvador Brown MD Work Phone: [facility] 09-27-2024 08:30-0500 Heart rate 59 /min Dr. Salvador Brown MD Work Phone: [facility] 09-27-2024 08:30-0500 Respiratory rate 16 /min Dr. Salvador Brown MD Work Phone: [facility] 09-27-2024 08:30-0500 SaO2% (BldA) [Mass fraction] 96 % Dr. Salvador Brown MD Work Phone: [facility] 09-27-2024 08:30-0500 Systolic blood pressure 119 mm[Hg] Dr. Salvador Brown MD Work Phone: [facility] 09-14-2024 13:23-0500 Body mass index (BMI) [Ratio] 33.5 kg/m2 Dr. Salvador Brown MD Work Phone: [facility] 09-14-2024 13:23-0500 Body temperature 97.4 [degF] Dr. Salvador Brown MD Work Phone: [facility] 09-14-2024 13:23-0500 Body weight 97.[address] Salvador Brown MD Work Phone: 1(660)149-355697 [place] [address] 09-14-2024 13:23-0500 Diastolic blood pressure 72 mm[Hg] Dr. Salvador Brown MD Work Phone: 0(879)011-313492 [address] 09-14-2024 13:23-0500 Heart rate 69 /min Dr. Salvador Brown MD Work Phone: 1(417)495-907492 [address] 09-14-2024 13:23-0500 Respiratory rate 18 /min Dr. Salvador Brown MD Work Phone: 6(945)661-110092 [address] 09-14-2024 13:23-0500 SaO2% (BldA) [Mass fraction] 94 % Dr. Salvador Brown MD Work Phone: 3(925)527-342997 [place] [address] 09-14-2024 13:23-0500 Systolic blood pressure 117 mm[Hg] Dr. Salvador Brown MD Work Phone: 6(813)427-574192 [address] 09-06-2024 11:09-0500 Body mass index (BMI) [Ratio] 33.3 kg/m2 Dr. Salvador Brown MD Work Phone: 8(259)618-666197 [place] [address] 09-06-2024 11:09-0500 Body temperature 97.5 [degF] Dr. Salvador Brown MD Work Phone: 4(499)342-181397 [place] [address] 09-06-2024 11:09-0500 Body weight 96.[address] Salvador Brown MD Work Phone: 8(870)455-618297 [place] [address] 09-06-2024 11:09-0500 Diastolic blood pressure 74 mm[Hg] Dr. Salvador Brown MD Work Phone: 9(426)637-502597 [place] [address] 09-06-2024 11:09-0500 Heart rate 69 /min Dr. Salvador Brown MD Work Phone: 9(467)124-501897 [place] [address] 09-06-2024 11:09-0500 Respiratory rate 16 /min Dr. Salvador Brown MD Work Phone: [facility] 09-06-2024 11:09-0500 SaO2% (BldA) [Mass fraction] 97 % Dr. Salvador Brown MD Work Phone: [facility] 09-06-2024 11:09-0500 Systolic blood pressure 115 mm[Hg] Dr. Salvador Brown MD Work Phone: 6(221)732-432857 [place] [address] 09-01-2024 09:02-0500 Body mass index (BMI) [Ratio] 33.2 kg/m2 Dr. Salvador Brown MD Work Phone: 1(057)453-906257 [place] [address] 09-01-2024 09:02-0500 Body temperature 97.3 [degF] Dr. Salvador Brown MD Work Phone: 0(773)941-350657 [place] [address] 09-01-2024 09:02-0500 Body weight 96.[address] Salvador Brown MD Work Phone: 9(217)156-306957 [place] [address] 09-01-2024 09:02-0500 Diastolic blood pressure 77 mm[Hg] Dr. Salvador Brown MD Work Phone: 5(985)327-673257 [place] [address] 09-01-2024 09:02-0500 Heart rate 62 /min Dr. Salvador Brown MD Work Phone: 4(832)683-714757 [place] [address] 09-01-2024 09:02-0500 Respiratory rate 16 /min Dr. Salvador Brown MD Work Phone: 7(316)537-923892 [address] 09-01-2024 09:02-0500 SaO2% (BldA) [Mass fraction] 97 % Dr. Salvador Brown MD Work Phone: 1(583)879-290992 [address] 09-01-2024 09:02-0500 Systolic blood pressure 137 mm[Hg] Dr. Salvador Brown MD Work Phone: 3(559)839-502092 [address] 08-30-2024 13:24-0500 Diastolic blood pressure 69 mm[Hg] Dr. Salvador Brown MD Work Phone: 0(175)539-792097 [place] [address] 08-30-2024 13:24-0500 Heart rate 74 /min Dr. Salvador Brown MD Work Phone: 4(659)442-717797 [place] [address] 08-30-2024 13:24-0500 Respiratory rate 16 /min Dr. Salvador Brown MD Work Phone: 2(847)865-969892 [address] 08-30-2024 13:24-0500 SaO2% (BldA) [Mass fraction] 95 % Dr. Salvador Brown MD Work Phone: 3(230)001-743997 [place] [address] 08-30-2024 13:24-0500 Systolic blood pressure 120 mm[Hg] Dr. Salvador Brown MD Work Phone: 4(788)373-582757 [place] [address] 08-30-2024 10:03-0500 Body mass index (BMI) [Ratio] 33.4 kg/m2 Dr. Salvador Brown MD Work Phone: 5(624)151-882357 [place] [address] 08-30-2024 10:03-0500 Body temperature 98.3 [degF] Dr. Salvador Brown MD Work Phone: 5(785)223-879557 [place] [address] 08-30-2024 10:03-0500 Body weight 96.[address] Salvador Brown MD Work Phone: 2(900)966-882457 [place] [address] 08-30-2024 10:03-0500 Diastolic blood pressure 79 mm[Hg] Dr. Salvador Brown MD Work Phone: 0(335)914-781557 [place] [address] 08-30-2024 10:03-0500 Heart rate 72 /min Dr. Salvador Brown MD Work Phone: 6(686)981-161697 [place] [address] 08-30-2024 10:03-0500 Respiratory rate 18 /min Dr. Salvador Brown MD Work Phone: 5(626)666-693157 [place] [address] 08-30-2024 10:03-0500 SaO2% (BldA) [Mass fraction] 95 % Dr. Salvador Brown MD Work Phone: 7(021)104-344857 [place] [address] 08-30-2024 10:03-0500 Systolic blood pressure 126 mm[Hg] Dr. Salvador Brown MD Work Phone: 5(770)693-957857 [place] [address] 08-18-2024 09:28-0500 Body temperature 97 [degF] Dr. Salvador Brown MD Work Phone: [facility] 08-17-2024 08:26-0500 Body mass index (BMI) [Ratio] 34.1 kg/m2 Dr. Salvador Brown MD Work Phone: [facility] 07-07-2024 08:35-0400 Body mass index (BMI) [Ratio] 35.47 kg/m2 Giorgio Mi MD Work Phone: [facility] 07-07-2024 08:35-0400 Body temperature 97.11 [degF] Giorgio Mi MD Work Phone: [facility] 07-07-2024 08:35-0400 Body weight 102.74 kg Giorgio Mi MD Work Phone: [facility] 07-07-2024 08:35-0400 Heart rate 55 /min Giorgio Mi MD Work Phone: [facility] 07-07-2024 08:35-0400 SaO2% (BldA) [Mass fraction] 98 % Giorgio Mi MD Work Phone: [facility] 06-23-2024 14:52-0400 Body mass index (BMI) [Ratio] 34.27 kg/m2 Duyen Enciso RD [facility] Phone: [facility] 06-23-2024 14:52-0400 Body weight 99.[address] Work Phone: [facility] 06-16-2024 14:22-0400 Body temperature 98.2 [degF] Giorgio Mi MD [facility] Phone: [facility] 06-16-2024 14:22-0400 Diastolic blood pressure 62 mm[Hg] Giorgio Mi MD Work Phone: [facility] 06-16-2024 14:22-0400 Heart rate 70 /min Giorgio Mi MD Work Phone: [facility] 06-16-2024 14:22-0400 Respiratory rate 20 /min Giorgio Mi MD Work Phone: [employer] 06-16-2024 14:22-0400 SaO2% (BldA) [Mass fraction] 95 % Giorgio Mi MD Work Phone: [employer] 06-16-2024 14:22-0400 Systolic blood pressure 120 mm[Hg] Giorgio Mi MD Work Phone: [employer] 06-10-2024 14:02-0400 SaO2% (BldA) [Mass fraction] 98.2 % Giorgio Mi MD Work Phone: [employer] 06-10-2024 09:26-0400 SaO2% (BldA) [Mass fraction] 98.6 % Giorgio Mi MD Work Phone: [employer] 06-10-2024 06:47-0400 Body mass index (BMI) [Ratio] 36.34 kg/m2 Giorgio Mi MD Work Phone: [employer] 06-10-2024 06:47-0400 Body weight 105.23 kg Giorgio Mi MD Work Phone: [employer] 05-26-2024 15:35-0400 Heart rate 57 /min Arlette Fuentes STONEWORKING BELT SANDER-ELECTRODE TURNER AND FINISHER Work Phone: [employer] 05-26-2024 09:17-0400 Body mass index (BMI) [Ratio] 36.35 kg/m2 Clayton Villarreal MD Work Phone: [employer] 05-26-2024 09:17-0400 Body temperature 97.59 [degF] Clayton Villarreal MD Work Phone: [employer] 05-26-2024 09:17-0400 Body weight 105.28 kg Clayton Villarreal MD Work Phone: [employer] 05-26-2024 09:17-0400 Heart rate 48 /min Clayton Villarreal MD Work Phone: [employer] 05-26-2024 09:17-0400 SaO2% (BldA) [Mass fraction] 99 % Clayton Villarreal MD Work Phone: [employer] 05-26-2024 08:45-0400 Diastolic blood pressure 82 mm[Hg] Arlette Fuentes STONEWORKING BELT SANDER-ELECTRODE TURNER AND FINISHER Work Phone: [facility] 05-26-2024 08:45-0400 Systolic blood pressure 144 mm[Hg] Arlette Fuentes STONEWORKING BELT SANDER-ELECTRODE TURNER AND FINISHER Work Phone: [facility] 05-26-2024 08:32-0400 Body height 170.2 cm Arlette Fuentes STONEWORKING BELT SANDER-ELECTRODE TURNER AND FINISHER Work Phone: [facility] 05-26-2024 08:32-0400 Body mass index (BMI) [Ratio] 36.34 kg/m2 Arlette Fuentes STONEWORKING BELT SANDER-ELECTRODE TURNER AND FINISHER Work Phone: [employer] 05-26-2024 08:32-0400 Body temperature 97.2 [degF] Arlette Fuentes APRN-ELECTRODE TURNER AND FINISHER Work Phone: [facility] 05-26-2024 08:32-0400 Body weight 105.23 kg Arlette Fuentes APRN-ELECTRODE TURNER AND FINISHER Work Phone: [facility] 05-26-2024 08:32-0400 Heart rate 60 /min Arlette Fuentes APRN-ELECTRODE TURNER AND FINISHER Work Phone: [facility] 05-26-2024 08:32-0400 Respiratory rate 12 /min Arlette Guzman STONEWORKING BELT SANDER-ELECTRODE TURNER AND FINISHER Work Phone: [facility] 05-26-2024 08:32-0400 SaO2% (BldA) [Mass fraction] 99 % Arlette Fuentes STONEWORKING BELT SANDER-ELECTRODE TURNER AND FINISHER Work Phone: [facility] 05-11-2024 13:09-0400 Body height 170.2 cm Giorgio Mi MD Work Phone: [employer] 05-11-2024 13:09-0400 Body mass index (BMI) [Ratio] 36.98 kg/m2 Giorgio Mi MD Work Phone: [facility] 05-11-2024 13:09-0400 Body temperature 97.3 [degF] Giorgio Mi MD Work Phone: [facility] 05-11-2024 13:09-0400 Body weight 107.09 kg Giorgio Mi MD Work Phone: [facility] Comment on above: clothed 05-11-2024 13:09-0400 Diastolic blood pressure 85 mm[Hg] Giorgio Mi MD Work Phone: [facility] 05-11-2024 13:09-0400 Heart rate 66 /min Giorgio Mi MD Work Phone: [facility] 05-11-2024 13:09-0400 Respiratory rate 20 /min Giorgio Mi MD Work Phone: [facility] 05-11-2024 13:09-0400 SaO2% (BldA) [Mass fraction] 98 % Giorgio Mi MD Work Phone: [facility] 05-11-2024 13:09-0400 Systolic blood pressure 151 mm[Hg] Giorgio Mi MD Work Phone: [facility] Encounters Encounter Date Encounter Type Care Provider Facility Start: 06-07-2025 ambulatory [facility] Facility: [facility] Start: 06-07-[address] Roland Maurice MD -[facility] Start: 06-03-2025 End: 06-03-[address] Salvador Brown MD Work Phone: -Radiology [facility] Start: 06-03-2025 End: 06-03-[address] Cain Connor DO -Radiology [facility] Work Phone: Start: 06-03-2025 End: 06-03-2025 ambulatory Cain [place] Facility:[facility] Start: 05-30-2025 End: 05-30-[address] Cain Connor DO -[facility] Work Phone: Start: 05-30-2025 End: 05-30-[address] Salvador Brown MD Work Phone: -[facility] Start: 04-26-[address] 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 Roland Maurice MD -[facility] Start: 12-22-2024 End: 12-22-[address] Ash Conde MD -[facility] Work Phone: Start: 12-22-2024 End: 12-22-2024 ambulatory Ash Conde Facility:[facility] Start: 12-14-[address] Roland Maurice MD -[facility] Start: 12-14-2024 End: 12-14-[address] Harley Maurice MD -[facility] Work Phone: Start: 12-14-2024 End: 12-14-2024 ambulatory Harley Maurice Facility:[facility] Start: 12-10-2024 End: 12-10-[address] Salvador Brown MD Work Phone: [facility] Work Phone: Start: 12-10-2024 End: 12-10-[address] Cain Connor DO -[facility] Work Phone: Start: 12-10-2024 End: 12-10-2024 ambulatory Cain Connor Facility:[facility] Start: 11-15-2024 End: 11-15-[address] Salvador Brown MD Work Phone: [facility] Work Phone: Start: 11-15-2024 End: 11-15-[address] [facility] Work Phone: Start: 11-15-[address] 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 Cain Connor [facility] Work Phone: Start: 09-27-2024 End: 09-27-2024 ambulatory Cain Nikolas Facility:[facility] Start: 09-14-2024 End: 09-14-[address] Harley Maurice MD -[facility] Work Phone: Start: 09-14-2024 End: 09-14-2024 ambulatory Harley Maurice Facility:[facility] Start: 09-06-2024 End: 09-06-2024 Patient encounter procedure Ema Hdez NP-Connor -[facility] Work Phone: Start: 09-06-2024 End: 09-06-2024 ambulatory Salvador Brown Facility:[facility] Start: 09-01-2024 Non-patient / Non-visit Dr. Guillen [facility] Work Phone: Start: 09-01-2024 ambulatory Cain Connor Facility: [facility] Start: 09-01-2024 End: 09-01-[address] Cain Connor DO [facility] Work Phone: Start: 09-01-2024 End: 09-01-2024 ambulatory Cain Connor Facility:[facility] Start: 08-30-2024 End: 08-30-2024 Patient encounter procedure Ema YANE[facility] Work Phone: Start: 08-30-2024 End: 08-30-2024 ambulatory Salvador Brown Facility:[facility] Start: 08-25-2024 End: 08-25-2024 ambulatory Cain Connor Facility:[facility] Start: 08-23-2024 End: 08-23-2024 ambulatory Salvador Brown Facility:[facility] Start: 08-18-2024 End: 08-18-2024 ambulatory Cain Connor Facility:[facility] Start: 08-17-2024 End: 08-17-2024 ambulatory Salvador Brown Facility:[facility] Start: 08-16-2024 End: 08-16-2024 ambulatory Salvador Brown Facility:[facility] Start: 08-11-2024 End: 08-11-2024 ambulatory Cain Connor Facility:[facility] Start: 08-09-2024 End: 08-09-2024 ambulatory Salvador Brown Facility:[facility] Start: 08-04-2024 End: 08-04-2024 ambulatory Cain Connor Facility:[facility] Start: 08-02-2024 End: 08-02-2024 ambulatory Salvador Brown Facility:[facility] Start: 07-28-2024 End: 07-28-2024 ambulatory Cain Connor Facility:[facility] Start: 07-26-2024 End: 07-26-2024 ambulatory Salvador Kevin Facility:[facility] Start: 07-23-2024 End: 07-23-2024 ambulatory Yudith Thomas RN Work Phone: [facility] Start: 07-23-2024 End: 07-23-2024 Coordination of care plan Yudith Thomas RN Work Phone: [facility] Comment on above: Care Coordination; T ransitional Care Management Start: 07-21-2024 End: 07-21-2024 ambulatory Cain Reyston Facility:[facility] Start: 07-19-2024 End: 07-19-2024 ambulatory Salvador Brown Facility:[facility] Start: 07-18-2024 End: 07-18-2024 Letter encounter Giorgio Mi MD Work Phone: [facility] Start: 07-15-2024 ambulatory Cain Connor Facility: [facility] Start: 07-15-2024 ambulatory Ash Conde Facility :[facility] Start: 07-15-2024 End: 07-15-2024 ambulatory Ash Conde Facility:[facility] Start: 07-14-2024 ambulatory Cain Connor Facility: [facility] Start: 07-12-2024 End: 07-12-2024 ambulatory Salvador Brown Facility:[facility] Start: 07-08-2024 End: 07-08-2024 ambulatory Salvador Brown Facility:[facility] Start: 07-07-2024 End: 07-07-2024 Subsequent hospital visit by physician Duyen Enciso RD Work Phone: [facility] Oncology Medical Comment on above: 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) Start: 07-07-2024 End: 07-09-2024 Patient encounter procedure Giorgio Mi MD Work Phone: [facility] Otolaryngology (ENT) Comment on above: 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); 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); Former smoker; Body mass index (BMI) 35.0-35.9, adult Start: 07-07-2024 End: 07-09-2024 ambulatory Omayra Herrera CCC-OFFICE SYSTEM ANALYST [facility] Speech E NT Comment on above: Treatment (11/22) Start: 07-05-2024 ambulatory Cain Connor Facility: [facility] Start: 07-01-2024 End: 07-01-2024 ambulatory Cain Connor Facility:[facility] Start: 06-25-2024 ambulatory Jenny Tran Facility :[facility] Start: 06-24-2024 End: 06-24-2024 Telephone encounter Patrick Krishnamurthy RN Work Phone: [facility] Otolaryngology (ENT) Start: 06-23-2024 End: 06-23-2024 Subsequent hospital visit by physician Duyen Enciso RD Work Phone: [facility] Oncology Medical Comment on above: 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) Start: 06-23-2024 End: 06-26-2024 Patient encounter procedure Giorgio Mi MD Work Phone: [facility] Otolaryngology (ENT) Comment on above: 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); 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); Former smoker Start: 06-23-2024 End: 06-26-2024 ambulatory Bossman Jeronimo CCC-OFFICE SYSTEM ANALYST [facility] Speech E[facility] Comment on above: Evaluation Start: 06-17-2024 End: 06-17-2024 ambulatory Yudith Thomas RN Work Phone: [facility] Care Management/Patient Access Start: 06-17-2024 End: 06-18-2024 E-mail encounter from caregiver Patrick Krishnamurthy RN Work Phone: [facility] Otolaryngology (ENT) Start: 06-17-2024 End: 06-17-2024 Follow-up encounter Yudith Thomas RN Work Phone: [facility] Care Management/Patient Access Comment on above: Care Coordination; T ransitional Care Management; Hospital follow-up Start: 06-17-2024 End: 06-18-2024 Home visit Patrick Krishnamurthy RN Work Phone: [facility] Otolaryngology (ENT) Comment on above: Home Care Start: 06-17-2024 End: 06-22-2024 Telephone encounter Giorgio Mi MD Work Phone: [facility] Otolaryngology (ENT) Comment on above: Update Start: 06-10-2024 End: 06-16-2024 Evaluation and management of inpatient Giorgio Mi MD Work Phone: [facility] Radiology Start: 06-10-2024 End: 06-16-2024 Evaluation and management of inpatient Giorgio Mi MD Work Phone: [facility] Comment on above: 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); Former smoker; Urinary retention Start: 05-27-2024 End: 05-27-2024 Telephone encounter Clayton Villarreal MD Work Phone: [facility] Otolaryngology (ENT) Comment on above: Requesting Medicatio ns Start: 05-26-2024 End: 05-26-2024 Office outpatient visit 25 minutes Clayton Villarreal MD Work Phone: [facility] Otolaryngology (ENT) Comment on above: 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); Body mass index (BMI) 36.0-36.9, adult Start: 05-26-2024 End: 05-27-2024 Patient encounter procedure Arlette Fuentes STONEWORKING BELT SANDER-ELECTRODE TURNER AND FINISHER Work Phone: [facility] Pre-Admission Testing Comment on above: Pre-op testing (Prim frida Dx); Bradycardia, unspecified; Unspecified right bundle-branch block; Abnormal electrocardiogram (ECG) (EKG); Body mass index (BMI) 36.0-36.9, adult Start: 05-26-2024 End: 05-27-2024 Patient encounter status Arlette Fuentes STONEWORKING BELT SANDER-ELECTRODE TURNER AND FINISHER [facility]: Start: 05-26-2024 End: 05-27-2024 ambulatory ARLETT[facility]UENTES [facility] Start: 05-26-2024 Encounter for other preprocedural examination ARLETTE FUENTES [facility] Start: 05-25-2024 End: 05-26-2024 ambulatory Meena Munoz MD Work Phone: [facility] Otolaryngology (ENT) Start: 05-21-2024 End: 05-21-2024 Telephone encounter Giorgio Mi MD Work Phone: [facility] Otolaryngology (ENT) Comment on above: Discuss results test /procedures Start: 05-20-2024 End: 05-20-2024 ambulatory UNKNOWN PROVIDER Facility:[facility] Start: 05-20-2024 End: 05-20-2024 Subsequent hospital visit by physician Duyen Enciso RD Work Phone: [facility] Oncology Medical Comment on above: Subj: Appointment Re minder Start: 05-19-2024 End: 05-25-2024 ambulatory Bossman Jeronimo CCC-OFFICE SYSTEM ANALYST [facility] Speech [facility] Comment on above: Evaluation Start: 05-13-2024 End: 05-13-2024 Telephone encounter Diann Bobo AGILE PROJECT MANAGER Work Phone: [facility] Oncology Medical Comment on above: Outreach Start: 05-11-2024 End: 05-13-2024 Office consultation new/estab patient 80 min Giorgio Mi MD Work Phone: [facility] Otolaryngology (ENT) Comment on above: 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); Former smoker; Body mass index (BMI) 36.0-36.9, adult Start: 05-11-2024 End: 05-13-2024 ambulatory BARTOLO CHILD Facility:[facility] Start: 05-06-2024 End: 05-06-2024 Transcribe Orders Provider2 Test Work Phone: [facility] Physician Referral Service Start: 01-20-2024 End: 01-20-2024 ambulatory [facility] Work Phone: Start: 01-20-2024 End: 01-20-2024 Patient encounter procedure [facility] Start: 07-22-2023 End: 07-22-2023 ambulatory [facility] Work Phone: Start: 07-22-2023 End: 07-22-2023 Patient encounter procedure [facility] Start: 12-31-2022 End: 12-31-2022 ambulatory [facility] Work Phone: Start: 12-31-2022 End: 12-31-2022 Patient encounter procedure [facility] Start: 07-30-2022 End: 07-30-2022 ambulatory [facility] Work Phone: Start: 07-30-2022 End: 07-30-2022 Patient encounter procedure [facility] Start: 01-11-2022 End: 01-11-2022 Patient encounter procedure [facility] Procedures Date Procedure Procedure Detail Performing Clinician Start: 06-03-[address] Salvador mueller MD Work Phone: Start: 12-14-[address] Salvador Brown MD Work Phone: Start: 12-14-2024 Serum inorganic phos phate measurement Dr. Salvador Brown MD Work Phone: Start: 12-10-[address] Salvador mueller MD Work Phone: Start: 12-10-2024 CT of soft tissues o f neck with contrast Dr. Salvador Brown MD Work Phone: Start: 12-10-2024 CT of thorax with contrast Dr. Salvador Borwn MD Work Phone: Start: 09-14-2024 Measurement of renal function Dr. Salvador Brown MD Work Phone: Comment on above: GFR Calc Start: 07-08-2024 Prostate specific an tigen measurement Dr. Salvador Brown MD Work Phone: Comment on above: This test was perfor med using the TPSA assay method [facility]. Values obtained with differentassay methods cannot be used interchangably.When changing PSA assays in the course of monitoring apatient, additional sequential testing should be carriedout to confirm baseline values. Start: 07-07-2024 Medical nutrition re-assmt&ivntj indiv ea [address] Work Phone: Start: 07-05-[address] Pietro Brown MD Work Phone: Start: 06-23-2024 Medical nutrition re-assmt&ivntj indiv ea [address] Work Phone: Start: 06-16-2024 End: 06-16-2024 Assay of magnesium Ronald Thayer MD Work Phone: Start: 06-15-2024 Assay of magnesium Andr marybel Thayer MD Work Phone: Start: 06-15-2024 Blood count complete automated Ronald Thayer MD Work Phone: Start: 06-14-2024 End: 06-14-2024 Assay of magnesium Ronald Thayer MD Work Phone: Start: 06-13-2024 End: 06-13-2024 Assay of magnesium Ronald Thayer MD Work Phone: Start: 06-12-2024 End: 06-12-2024 Assay of magnesium Ronald Thayer MD Work Phone: Start: 06-11-2024 End: 06-11-2024 Assay of magnesium Ronald Thayer MD Work Phone: Start: 06-10-2024 End: 06-10-2024 Assay of lactate Ronald Thayer MD Work Phone: Start: 06-10-2024 Radiologic exam abdo men 1 view Meena Munoz MD Work Phone: Start: 06-10-2024 Assay of lactate Jesisca Kierstenucher KITA Work Phone: Start: 06-10-2024 Blood gases any comb ination ph pco2 po2 co2 hco3 Jessica Kaucher CAA Work Phone: Start: 06-10-2024 Carboxyhemoglobin measurement Jessica Kaucher CAA Work Phone: Start: 06-10-2024 Assay of lactate Jessica Kaucher CAA Work Phone: Start: 06-10-2024 Blood gases any comb ination ph pco2 po2 co2 hco3 Jessica Kaucher CAA Work Phone: Start: 06-10-2024 Carboxyhemoglobin measurement Jessica Kaucher CAA Work Phone: Start: 06-10-2024 Blood typing, ABO, R ho(D) and RBC antibody screening Arlette Fuentes APRN-ELECTRODE TURNER AND FINISHER Work Phone: Start: 06-10-2024 End: 06-10-2024 DISSECTION, RADICAL NECK, MODIFIED Giorgio iM MD Work Phone: Start: 06-10-2024 End: 06-10-2024 ESOPHAGOSCOPY RIGID Giorgio Mi MD Work Phone: Start: 06-10-2024 End: 06-10-2024 LARYNGOSCOPY, DIRECT Giorgio Mi MD Work Phone: Start: 06-10-2024 End: 06-10-2024 RESECTION,HEAD AND NECK WITH FREE FLAP,SOFT TISSUE Clayton Villarreal MD Work Phone: Start: 05-26-2024 Blood count complete automated Arlette Fuentes APRN-ELECTRODE TURNER AND FINISHER Work Phone: Start: 05-26-2024 Blood typing, ABO, R ho(D) and RBC antibody screening Arlette Fuentes APRN-ELECTRODE TURNER AND FINISHER Work Phone: Start: 05-26-2024 Ecg routine ecg w/le ast 12 lds trcg only w/o i&r Arlette Fuentes APRN-ELECTRODE TURNER AND FINISHER Work Phone: Start: 05-13-2024 Laryngoscopy flexibl e diagnostic Giorgio Mi MD Work Phone: Plan of Treatment Date Care Activity Detail Author Start: 07-22-2028 [facility] Start: 09-14-2025 Creatinine measurement Basic Metabol ic Panel [facility] Start: 09-14-2025 End: 09-14-2025 Patient encounter procedure 09/14/2025 9:00 AM EST Office Visit [facility] Otolaryngology (ENT) [address] [place] [id number] Clayton Villarreal MD [address] [place] [address] [facility] Otolaryngology (ENT) Start: 06-16-2025 Creatinine measurement Basic Metabol [facility] Start: 06-13-2025 Creatinine measurement Basic Metabol ic Panel [facility] Start: 05-26-2025 Creatinine measurement Basic Metabol [facility] Start: 04-13-2025 Tetanus vaccination Tetanus (T d or Tdap) Booster [facility] Start: 03-02-2025 End: 03-02-2026 DOWNLOAD [employer] TO [employer] DOWNLOAD [employer] [facility] TO [employer] Imaging Routine 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) Body mass index (BMI) 30.0-30.9, adult Expected: 03/02/2025, Expires: 03/02/2026 [employer] Work Phone: Comment on above: Expected: 03/02/2025 , Expires: 03/02/2026 Start: 12-14-2024 Patient referral [facility] Work Phone: Start: 12-10-2024 Venous catheter care management [facility] Start: 09-29-2024 End: 09-29-2024 ambulatory 09/29/2024 10:00 AM EST [facility] [address] [place], [place] [id number] Bossman Jeronimo, [facility]-OFFICE SYSTEM ANALYST [address] [place], [place] [id number] [facility] Start: 09-29-2024 End: 09-29-2024 Patient encounter procedure 09/29/2024 9:00 AM EST Office Visit [facility] Otolaryngology (ENT) [address] [place] [id number] Clayton Villarreal MD [address] [place] [id number] [facility] Otolaryngology (ENT) Start: 07-19-2024 Venous catheter care management [facility] Start: 07-13-2024 Influenza vaccination Influenza Vacc ine (#1) [facility] Start: 07-07-2024 End: 07-07-2024 ambulatory 07/07/2024 10:00 AM EDT [facility] [address] [id number] Omayra Herrera, DACIA-OFFICE SYSTEM ANALYST [address] [place] [address] [place] [phone] [facility] Start: 07-07-2024 End: 07-07-2024 Patient encounter procedure [facility] Otolaryngology (ENT) Start: 06-23-2024 Subsequent hospital visit by physician 06/23/2024 3:00 PM EDT Hospital Encounter [facility] [address] [place], [place] [phone] Duyen Enciso RD [address] [place] [address] [place] [phone] Subj: Appointment Reminder [facility] Comment on above: Subj: Appointment Re minder Start: 06-23-2024 End: 06-23-2024 ambulatory [facility] Start: 06-23-2024 End: 06-23-2024 Patient encounter procedure [facility] Otolaryngology (ENT) Start: 06-13-2024 COVID-19 Vaccine ( season) COVID-19 Vaccine ( season) [facility] Start: 06-13-2024 COVID-19 Vaccine ( season) COVID-19 Vaccine ( season) [facility] Start: 06-13-2024 Influenza vaccination Influenza Vacc ine (#1) [facility] Start: 06-10-2024 End: 06-10-2024 Admission to same day surgery center 06/10/2024 7:35 AM EDT - 06/10/2024 8:31 PM EDT Surgery [facility] [address] [place], [place] [phone] Giorgio Mi MD [address] [place] [id number] LARYNGOSCOPY, DIRECT [facility] Comment on above: LARYNGOSCOPY, DIRECT Start: 06-10-2024 End: 06-10-2024 DISSECTION, RADICAL NECK, MODIFIED DISSECTION, RADICAL NECK, MODIFIED Routine scheduled 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) Former smoker 06/10/2024 7:35 AM EDT [facility] Start: 06-10-2024 End: 06-10-2024 ESOPHAGOSCOPY RIGID ESOPHAGOSCOPY RIGID Routine scheduled 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) Former smoker 06/10/2024 7:35 AM EDT [facility] Start: 06-10-2024 End: 06-10-2024 LARYNGOSCOPY, DIRECT LARYNGOSCOPY, DIRECT Routine scheduled 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) Former smoker 06/10/2024 7:35 AM EDT [facility] Start: 06-10-2024 End: 06-10-2024 RESECTION,HEAD AND NECK WITH FREE FLAP,SOFT TISSUE RESECTION,HEAD AND NECK WITH FREE FLAP,SOFT TISSUE Routine scheduled 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) Former smoker 06/10/2024 7:35 AM EDT [facility] Start: 06-10-2024 Subsequent hospital visit by physician [facility] Main OR Start: 05-26-2024 End: 05-26-2024 Patient encounter procedure [facility] Otolaryngology (ENT) Start: 05-20-2024 End: 05-20-2024 Patient encounter procedure 05/20/2024 3:30 PM EDT Appointment [facility] On[facility] Medical [address] [place] [address] [place] [address] [place] [address] [facility] Start: 05-20-2024 Subsequent hospital visit by physician 05/20/2024 3:30 PM EDT Hospital Encounter [facility] [address] [place] [address] [facility] [place] [address] Subj: Appointment Reminder [facility] Comment on above: Subj: Appointment Re minder Start: 05-19-2024 End: 05-19-2024 Professional / ancillary services management [facility] CT Scan Start: 05-19-2024 End: 08-07-2024 ambulatory 05/19/2024 10:00 AM EDT [facility] Speech ENT [address] [place] [id number] Boss[address] Jeronimo, [facility]-OFFICE SYSTEM ANALYST [address] [place] [id number] [facility]NT Start: 05-11-2024 End: 05-11-2025 CT Chest W contrast IV CT CHEST W/ CONTRAST Imaging Within 1 week 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) Expected: 05/11/2024, Expires: 05/11/2025 [facility] Comment on above: Expected: 05/11/2024 , Expires: 05/11/2025 Start: 05-11-2024 End: 05-11-2025 CT Neck W contrast IV CT NECK W/ CONTRAST Imaging Within 1 week 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) Expected: 05/11/2024, Expires: 05/11/2025 [facility] Work Phone: Comment on above: Expected: 05/11/2024 , Expires: 05/11/2025 Start: 05-11-2024 End: 05-11-2024 Patient encounter procedure 05/11/2024 1:00 PM EDT Office Visit [facility] Otolaryngology (ENT) [address] [place], [place] [id number] Giorgio Mi MD [address] [place] [id number] [facility] Ot[facility] (ENT) Start: 01-07-2024 RSV Vaccine (75+ years) RSV Vaccine (75+ years) [facility] Start: 01-07-2024 RSV vaccine (adult) (1 - 1-dose 75+ series) RSV vaccine (adult) (1 - 1-dose 75+ series) [facility] Start: 06-13-2023 COVID-19 Vaccine ( season) COVID-19 Vaccine ( season) [facility] Start: 12-11-2014 Annual wellness visit Annual W ellness Visit ([id number]) [facility] Start: 2014 Abdominal aortic aneurysm screening [facility] Start: 2009 Hepatitis B (HBV) Vaccine (optional start 60+ years) Hepatitis B (HBV) Vaccine (optional start 60+ years) [facility] Start: 2009 RSV vaccine (optiona l 60+ years) RSV vaccine (optional 60+ years) [facility] Start: 1994 Screening for malignant neoplasm of colon [facility] Start: 01-07-1984 Lipid panel [facility] Start: 01-07-1968 Hepatitis A (HAV) Vaccine (optional start 19+ years) Hepatitis A (HAV) Vaccine (optional start 19+ years) [facility] Start: 1967 Hepatitis C screening Hepatitis C An tibody [facility] Start: 1950 Screening for malignant neoplasm of colon Colonoscopy [facility] Assay of magnesium MAGNESIUM Lab Routine Daily until discontinued starting 06/10/2024, 7 completed [facility] Comment on above: Daily until disconti nued starting 06/10/2024, 7 completed Assay of phosphorus inorganic PHOSPHORUS Lab Routine Daily until discontinued starting 06/10/2024, 7 completed [facility] Comment on above: Daily until disconti nued starting 06/10/2024, 7 completed Basic metabolic 2000 panel - Serum or Plasma BASIC METABOLIC PANEL Lab Routine Daily until discontinued starting 06/10/2024, 7 completed [facility] Work Phone: Comment on above: Daily until disconti nued starting 06/10/2024, 7 completed Blood typing serolog ic abo ABO RH TYPE Lab Routine Pre-op testing Ordered: 05/26/2024 [facility] Work Phone: Comment on above: Ordered: 05/26/2024 CBC panel - Blood by Automated count COMPLETE BLOOD COUNT Lab Routine Daily until discontinued starting 06/10/2024, 7 completed [facility] Comment on above: Daily until disconti nued starting 06/10/2024, 7 completed CBC W Auto Differential panel - Blood [facility] Comprehensive metabolic 2000 panel - Serum or Plasma [facility] DISSECTION, RADICAL NECK, MODIFIED DISSECTION, RADICAL NECK, MODIFIED Routine scheduled 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) Former smoker [facility] ESOPHAGOSCOPY RIGID ESOPHAGOSCOP Y RIGID Routine scheduled 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) Former smoker [facility] LARYNGOSCOPY, DIRECT LARYNGOSCOP Y, DIRECT Routine scheduled 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) Former smoker [facility] Magnesium measurement [facility] Patient referral [facility] Work Phone: PT Unspecified body region [facility] RESECTION,HEAD AND NECK WITH FREE FLAP,SOFT TISSUE RESECTION,HEAD AND NECK WITH FREE FLAP,SOFT TISSUE Routine scheduled 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) Former smoker [facility] Serum inorganic phosphate measurement [facility] Surgical pathology procedure [facility] Work Phone: Comment on above: Release Upon Orderin g for 1 Occurrences starting 06/10/2024, 1 completed Surgical pathology procedure SPECIMEN FOR SURGICAL PATH Anatomic Pathology Routine 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 Salvador Brown MD Work Phone: [facility] 10-20-2023 zoster vaccine recombinant Giorgio Mi MD Work Phone: [facility] 08-04-2023 zoster vaccine recombinant Giorgio Mi MD Work Phone: [facility] 07-22-2023 Pneumococcal conjuga te 20 valent (PCV20), polysaccharide [id number] conjugate, adjuvant, PF (YLC=447) Giorgio Mi MD Work Phone: [facility] 08-09-2022 Influenza, injectabl e, high-dose seasonal, quadrivalent, 0.7 mL, preservative free (YEG=292) Giorgio Mi MD Work Phone: [facility] 08-09-2022 influenza virus vacc ine, unspecified formulation Giorgio Mi MD Work Phone: [facility] 08-13-2021 Influenza, seasonal vaccine, quadrivalent, adjuvanted, 0.5mL dose, preservative free (HKZ=613) Giorgio Mi MD Work Phone: [facility] 08-08-2020 pneumococcal polysaccharide vaccine, 23 valent Giorgio Mi MD Work Phone: [facility] 07-13-2020 Influenza virus vaccine [facility] 07-13-2020 Influenza, seasonal vaccine, quadrivalent, adjuvanted, 0.5mL dose, preservative free (AHI=194) Giorgio Mi MD Work Phone: [facility] 08-04-2019 influenza, injectabl e, quadrivalent, preservative free Giorgio Mi MD Work Phone: [facility] 08-04-2019 pneumococcal conjuga te vaccine, 13 valent Giorgio Mi MD Work Phone: [facility] 08-04-2018 influenza, injectabl e, quadrivalent, preservative free Giorgio Mi MD Work Phone: [facility] 07-30-2017 influenza, seasonal, injectable Giorgio Mi MD Work Phone: [facility] 04-16-2016 pneumococcal polysaccharide vaccine, 23 valent Giorgio Mi MD Work Phone: [facility] 04-13-2015 pneumococcal conjuga te vaccine, 13 valent Giorgio Mi MD Work Phone: [facility] 04-13-2015 tetanus toxoid, redu michael diphtheria toxoid, and acellular pertussis vaccine, adsorbed Giorgio Mi MD Work Phone: [facility] Payers Date Payer Category Payer Self-pay [id number] 2024 Unknown [id number] 2023 Commercial Indemnity [employer] [place] [address] [id number]. [id number] 2023 Unknown COMMERCIAL INSUR ANCE - OTHER COMMERCIAL INSURANCE OTHER [id number] 2023-Present [address] [place] [address] [place] [address] Indemnity [id number]. [id number] 2023 Unknown [id number] 2013 Medicare MEDICARE MEDICAR E PART A & B [id number] 2013-Present [address] [place] [id number] Medicare [id number]. [id number] 2013 Medicare FFS MEDICARE 1.2.840.936856.1.13.56.2. [id number] 2013 Medicare [id number] 1949 Unknown [id number] 2840.1.104515.3.579.2 .732 1949 Unknown [id number] 11.28.830.1.588786.3.579.2 .732 1949 Unknown [id number] 2.16.840.1.027471.3.579.2 .73 1949 Unknown [id number] 2.16.840.1.376394.3.579.2 .732 1949 Unknown [id number] 2.16840.1.045733.3.579.2 .1949 Unknown [id number] 2.16840.1.467583.3.579.2 .73 1949 Unknown [id number] 2.840.1.612276.3.579.2 .1949 Unknown [id number] 2.840.1.885753.3.579.2 .1949 Unknown [id number] 2.840.1.182155.3.579.2 .1949 Unknown [id number] 2.840.1.852144.3.579.2 .73 1949 Unknown [id number] 2.840.1.815943.3.579.2 .1949 Unknown [id number] 2.840.1.478573.3.579.2 .73 1949 Unknown [id number] 2.840.1.058616.3.579.2 .73 1949 Unknown [id number] 2.840.1.297552.3.579.2 .73 1949 Unknown [id number] 2.16840.1.273549.3.579.2 .73 1949 Unknown [id number] 2.16840.1.832457.3.579.2 .73 1949 Unknown [id number] 2.16840.1.149605.3.579.2 .732 1949 Unknown [id number] 2..840.1.396497.3.579.[address] [facility] [id number] Unknown [id number] Unknown [id number] 2.16.840.1.286084.3.579.2 .462 Unknown [id number] 2.840.1.408454.3.579.2 .462 Unknown [id number] 2.840.1.075823.3.579.2 .462 Unknown [id number] 2.840.1.686773.3.579.2 .462 Unknown [id number] 2.840.1.278652.3.579.2 .462 Unknown [id number] 2.840.1.443037.3.579.2 .462 Unknown [id number] 2..840.1.028263.3.579.2 .462 Unknown [id number] 2..840.1.023119.3.579.2 .462 Unknown [id number] 2.840.1.673914.3.579.2 .462 Unknown [id number] 2.840.1.852678.3.579.2 .462 Unknown [id number] 2.16.840.1.463327.3.579.2 .462 Unknown [id number] 2.16.840.1.068210.3.579.2 .462 Unknown [id number] 2.16.840.1.114402.3.579.2 .462 Unknown [id number] 2.16.840.1.733985.3.579.2 .462 Unknown [id number] 2.16840.1.710818.3.579.2 .462 Unknown [id number] 2.16.840.1.200295.3.579.2 .462 Unknown [id number] 2.16840.1.464300.3.579.2 .462 Unknown [id number] 2.16840.1.438500.3.579.2 .462 Unknown [id number] 2.840.1.490574.3.579.2 .462 Unknown [id number] 2.840.1.549922.3.579.2 .462 Unknown [id number] 2.840.1.961993.3.579.2 .462 Unknown [id number] 2.840.1.412988.3.579.2 .462 Unknown [id number] 2.840.1.294466.3.579.2 .462 Unknown [id number] 2.840.1.580592.3.579.2 .462 Unknown [id number] 2.840.1.839613.3.579.2 .462 Unknown [id number] 2.840.1.704832.3.579.2 .462 Unknown [id number] 2.840.1.808173.3.579.2 .462 Unknown [id number] 2.840.1.535771.3.579.2 .462 Unknown [id number] 2.840.1.065307.3.579.2 .462 Unknown [id number] 2.840.1.157107.3.579.2 .462 Unknown [id number] 2.840.1.521723.3.579.2 .462 Unknown [id number] 2.840.1.212836.3.579.2 .462 Unknown [id number] 2.840.1.193775.3.579.2 .462 Unknown [id number] 2.16.840.1.789194.3.579.2 .462 Unknown [id number] 2.840.1.135872.3.579.2 .462 Unknown [id number] 2.840.1.659104.3.579.2 .462 Unknown [id number] 2.840.1.950496.3.579.2 .462 Unknown [id number] 2.0.1.517479.3.579.2 .462 Unknown [id number] 2.0.1.848214.3.579.2 .462 Social History Date Type Detail Facility Start: 12-22-2020 Tobacco smoking status [facility] Unknown if ever smoked [facility] Start: 12-22-2020 None [facility] Start: 12-22-2020 Spouse/ Significant Other [facility] Start: 12-22-2020 Cigarettes;Cigars [facility] Start: 1950 Sex Assigned At Male [facility] Start: 05-11-2024 End: 08-30-2024 Tobacco smoking status [facility] Ex-smoker [facility] End: 10-13-1974 History of tobacco use Current smoker [facility] End: 10-13-1974 History of tobacco use Cigarette Smoker [facility] Start: 05-11-2024 Tobacco use and exposure Smokeless tobacco non-user [facility] Start: 05-11-2024 End: 09-29-2024 History of Social function [facility] Start: 05-11-2024 End: 09-29-2024 Tobacco use panel [facility] Start: 1950 Sex assigned at Not on file [facility] Start: 05-26-2024 End: 09-29-2024 Alcoholic beverage intake Ex-drinker (finding) [facility] In the past 12 month s has the [employer], gas, oil, or water [employer] threatened to shut off services in your home? No [facility] Within the last year , have you been afraid of your partner or ex-partner? No [facility] Do you belong to any clubs or organizations such as sabianism groups, unions, fraternal or athletic groups, or school groups? Yes [facility] Are you now , , , , never or living with a partner? [facility] (I/We) worried wheth er (my/our) food would run out before (I/we) got money to buy more. Never true [facility] Start: 09-29-2024 Education 12 [facility] Start: 05-04-2024 End: 01-26-2025 Sex [facility] (finding) [facility] Equipment Procedure Code Equipment Code Equipment Origin al Text Equipment Identifier Dates Insertion, vascular access port ([id number]) Vascular port/catheter [id number] FDA Start: 07-15-2024 EGD, with monitored anesthesia care Gastrostomy tube kit, medicated [id number] FDA Start: 07-15-2024 Auxiliary Power Equipment Operator Anastomo sis 3.5mm Bx6 [id number] - [id number] Start: 06-10-2024 Mental Status Date Assessment Result Facility 08-18-2024 Cognitive function Awake;Alert;A ppropriate;Fol lows Commands [facility] Work Phone: Clinical Notes 05-11-2024 to 06-03-2025 Note Date & Type Note Facility 06-03-2025 Procedure note [facility] 05-30-2025 Evaluation note Diagnosis Onset Date Resolution 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 May 30 9:35am [facility] Work Phone: 1(720) 709-178008-18-2025 Progress [facility] [address] [place] [address] OFFICE VISIT Date of Service: 05/30/25 0946 MR#: [id number] Acct: [id number] Name: QUIRINO CORDERO Rep #: [id number] : 1950 From: Cain chandra DO Age/Sex: 75/M [place] [facility]: Signed Intake Vital Signs 12/14/24 11:22 01/25/25 15:50 05/30/25 10:10 Height 5 ft 7 in 5 ft 7 in 5 ft 7 in Weight: 196 lb BMI 30.7 BP 118/69 Blood Pressure Location Rt brachial Position Sitting Respiration 18 Pulse 47 L Pulse Source Monitor Temp 98.0 F Temperature Source Temporal Artery Pulse Oximetry (%) 98 Oxygen Delivery Method room air Intake Visit Reasons: 6 MONTH F/U H/N Is patient in pain?: No Allergies No Known Allergies Allergy (Verified 05/30/25 10:07) Medications ?Medication ?Instructions ?Recorded ?Confirmed ?Type atorvastatin 80 mg tablet 80 mg PO QHS cholesterol 10/0205/30/25 History buspirone 10 mg tablet 10 mg PO BID mental health 0 12/22/20 05/30/25 History cholecalciferol (vitamin D3) 25 1,000 unit PO DAILY vi tamin 12/22/20 05/30/25 History mcg (1,000 unit) tablet metoprolol tartrate 25 mg tablet 12.5 mg PO BID blood pressure 12/22/20 05/30/25 History irbesartan 75 mg tablet 75 mg PO QDAY 07/01/2405/30 History latanoprost 0.005 % eye drops 1 drp ophthalmic (eye) D AILY 08/17/24 05/30/25 History glaucoma Have you fallen in the past year?: No PFSH PFSH Medical History Dysphagia Encounter for chemotherapy management Wears dentures Cancer History of stress test Encounter for education Hearing loss Home Medications ?Medication ?Instructions ?Recorded ?Last Taken ?Type atorvastatin 80 mg tablet 80 mg PO QHS cholesterol 10/0207/14/24 History buspirone 10 mg tablet 10 mg PO BID mental health 0 12/22/20 07/15/24 History cholecalciferol (vitamin D3) 25 1,000 unit PO DAILY vi tamin 12/22/20 07/14/24 History mcg (1,000 unit) tablet metoprolol tartrate 25 mg tablet 12.5 mg PO BID blood pressure 12/22/20 07/15/24 History irbesartan 75 mg tablet 75 mg PO QDAY 07/01/2407/14 History latanoprost 0.005 % eye drops 1 drp ophthalmic (eye) D AILY 08/17/24 Unknown History glaucoma Allergy/AdvReac Type Severity Reaction Status Date / Time No Known Allergies Allergy Verified 05/30/25 10:07 Family History Sister Cancer Mother Cancer Father Diabetes Heart disease Surgical History H/O skin graft Hx of tracheostomy History of laryngoscopy S/P partial glossectomy Social History Smoking Status: Former smoker Tobacco: How many years used: 8 how long ago did patient quit smokin years ago alcohol intake: never substance use type: does not use Diagnosis: Quirino Cordero is a 75 year-old male diagnosed with 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 From 07/19/2024 ? 09/01/2024 he received adjuvant chemoradiation. History of Present Illness: 06/10/2024: Patient completed direct laryngoscopy, esophagoscopy, tracheostomy, hemiglossectomy on the left and left selective neck dissection.? The left tonguelesion on the lateral aspect of the tongue extends to the floor of mouth as wellas posterior extension to the glossotonsillar junction with a depth of approximately 1 to 1.5 cm.? Pathology demonstrated invasive poorly differentiated squamous cell carcinoma measuring 2.6 x 2 x 1.5 cm, 12 mm depth of invasion, lymph-vascular invasion and perineural invasion are both present, margins are negative with a margin greater than 2 mm, initial margin was positive but we resected negative and deemed close by the surgeon.? 2 lymph nodes were involved with tumor, positive lymph nodes were levels 2A and 3 with the largest ken disease measuring 1.2 cm, there is extranodal extension present.? pT3 pN3b From 07/19/2024 ? 09/01/2024: received adjuvant chemoradiation consisting of 6600cGy delivered to the area of extracapsular extension in the left neck, 5940 cGy delivered to the postop bed including oral cavity and left neck levels 2 through4 and 5412 cGy delivered to the high left to neck as well as the right neck levels 2 through 4 and bilateral supraclavicular space all in 33 fractions. He was treated with a VMAT technique using 6 MV photons. 12/10/2024: CT neck and chest completed, post op changes, no evidence of diseaserecurrence, no lung changes. Radiation Treatment History: 1) From 07/19/2024 ? 09/01/2024: received adjuvant chemoradiation consisting of 6600 cGy delivered to the area of extracapsular extension in the left neck, 5940cGy delivered to the postop bed including oral cavity and left neck levels 2 through 4 and 5412 cGy delivered to the high left to neck as well as the right neck levels 2 through 4 and bilateral supraclavicular space all in 33 fractions.He was treated with a VMAT technique using 6 MV photons. Interval History: Patient presents for follow-up approximately 9 months after completing adjuvant chemoradiation for head neck cancer. He is doing quite well overall improving. He still does complain of increased dry mouth for which he is using water and also some persistent taste changes but he has had nearly 100% recovery. He believes his skin is well healed and he denies redness or tanning or peeling at this time. He does report continued tightness in his neck left greater than right and he does stretching regularly. He denies swelling. Denies pain. Eating regular diet by mouth without much difficulty, no lower dentures yet, hasa hard time with crunchy food. Appetite has remained normal. He denies cough, shortness of breath, chest pain, bone pain. He denies headaches, vision changes, focal weakness/numbness, nausea/vomiting, hoarseness, otalgia. Persistent tongue numbness and some swelling. Energy level is still somewhat reduced but improving and he stays active in his daily life. He completes all ADLs without any difficulty and he denies having other problems or concerns at this time. Review of Systems: A 12-point review of systems was completed and was negative except for what is noted in the HPI/Interval History and by the nurse. Physical Exam: Weight: 196 lbs ECO KARNOFSKY SCORE: 80% CONSTITUTIONAL: Well-developed, well-nourished, and in no apparent distress. HEENT: Mucous membranes appear moist. Well-healed flap based reconstruction involving the left sideof the oral tongue into the floor of mouth, soft, no nodularity or evidence of disease recurrence. No evidence of thrush or lesions within the visualized oropharynx or oral cavity. No trismus. Edentulous. Pupils are equal, round, and reactive to light and accommodation. Extraocular movements are intact. Sclerae are anicteric. NECK: Supple, no thyromegaly, and non-tender. Trachea midline. No cervical or supraclavicular adenopathy noted. CARDIAC: Regular rate and rhythm. Normal S1, S2. No murmurs, rubs, or gallops. PULMONARY/CHEST: Lungs are clear to auscultation and percussion bilaterally. No wheezes, rhonchi, or crackles noted. No increased work of breathing. 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 From 07/19/2024 ? 09/01/2024 he received adjuvant chemoradiation. Plan: Patient presents for follow-up approximately 9 months after completing chemoradiation adjuvantly for head neck cancer. CT neck and chest showed NISHA atabout 3 months post treatment, PET to be completed in 3 months. Clinically he has recovered very well from treatment associated toxicities. He still has somepersistent taste changes, dry mouth, and neck tightness. We did review management of these toxicities as well as likely timing for improvement or resolution. He is planning to follow-up with his ENT. Normal diet by mouth, will discuss with ENT about dentures. Continuing to follow-up closely with OFFICE SYSTEM ANALYST and dietary. For disease follow-up I recommended exam at least every 3 months and I will plan to have him return in 6 months and he was instructed to call with any further questions or concerns in the interim. Thank you for allowing me to participate in the management and care of your patient. If I may answer any questions in the interim, please do not hesitate tocontact me at any time. Cain Connor DO, MS Diesel Tractor Operator, Department of Radiation Oncology [facility] Coding Level of Care Code Off vis,est,level 3 Diagnoses Squamous cell carcinoma of oral cavity C06.9 05/30/25 1121 DO> Date _ Cain Connor DO Cosigner Signature: Date (if applicable) CC: ~ [facility]08-18-2025 Progress note Author Cain Connor [facility] Note Date/Time May 30, 2025 11 :21am [facility] [address] [address] OFFICE VISIT Date of Service: 05/30/25945 MR#: [id number] Acct: [id number] Name: TOREYBRITTALICHAQUIRINO Deng Gurvinder Rep #: [id number] : 1950 From: Cain chandra DO Age/Sex: 75/M [place] [facility] [place]: Signed Intake Vital Signs 12/14/24 11:22 01/25/25 15:50 05/30/25 10:10 Height 5 ft 7 in 5 ft 7 in 5 ft 7 in Weight: 196 lb BMI 30.7 BP 118/69 Blood Pressure Location Rt brachial Position Sitting Respiration 18 Pulse 47 L Pulse Source Monitor Temp 98.0 F Temperature Source Temporal Artery Pulse Oximetry (%) 98 Oxygen Delivery Method room air Intake Visit Reasons: 6 MONTH F/U H/N Is patient in pain?: No Allergies No Known Allergies Allergy (Verified 05/30/25 10:07) Medications ?Medication ?Instructions ?Recorded ?Confirmed ?Type atorvastatin 80 mg tablet 80 mg PO QHS cholesterol 10/0205/30/25 History buspirone 10 mg tablet 10 mg PO BID mental health 0 12/22/20 05/30/25 History cholecalciferol (vitamin D3) 25 1,000 unit PO DAILY vi tamin 12/22/20 05/30/25 History mcg (1,000 unit) tablet metoprolol tartrate 25 mg tablet 12.5 mg PO BID blood pressure 12/22/20 05/30/25 History irbesartan 75 mg tablet 75 mg PO QDAY 07/01/2405/30 History latanoprost 0.005 % eye drops 1 drp ophthalmic (eye) D DIONNA 08/17/24 05/30/25 History glaucoma Have you fallen in the past year?: No PFSH PFSH Medical History Dysphagia Encounter for chemotherapy management Wears dentures Cancer History of stress test Encounter for education Hearing loss Home Medications ?Medication ?Instructions ?Recorded ?Last Taken ?Type atorvastatin 80 mg tablet 80 mg PO QHS cholesterol 10/0207/14/24 History buspirone 10 mg tablet 10 mg PO BID mental health 0 12/22/20 07/15/24 History cholecalciferol (vitamin D3) 25 1,000 unit PO DAILY vi tamin 12/22/20 07/14/24 History mcg (1,000 unit) tablet metoprolol tartrate 25 mg tablet 12.5 mg PO BID blood pressure 12/22/20 07/15/24 History irbesartan 75 mg tablet 75 mg PO QDAY 07/01/2407/14 History latanoprost 0.005 % eye drops 1 drp ophthalmic (eye) D DIONNA 08/17/24 Unknown History glaucoma Allergy/AdvReac Type Severity Reaction Status Date / Time No Known Allergies Allergy Verified 05/30/25 10:07 Family History Sister Cancer Mother Cancer Father Diabetes Heart disease Surgical History H/O skin graft Hx of tracheostomy History of laryngoscopy S/P partial glossectomy Social History Smoking Status: Former smoker Tobacco: How many years used: 8 how long ago did patient quit smokin years ago alcohol intake: never substance use type: does not use Diagnosis: Quirino Cordero is a 75 year-old male diagnosed with 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 From 07/19/2024 ? 09/01/2024 he received adjuvant chemoradiation. History of Present Illness: 06/10/2024: Patient completed direct laryngoscopy, esophagoscopy, tracheostomy, hemiglossectomy on the left and left selective neck dissection.? The left tonguelesion on the lateral aspect of the tongue extends to the floor of mouth as wellas posterior extension to the glossotonsillar junction with a depth of approximately 1 to 1.5 cm.? Pathology demonstrated invasive poorly differentiated squamous cell carcinoma measuring 2.6 x 2 x 1.5 cm, 12 mm depth of invasion, lymph-vascular invasion and perineural invasion are both present, margins are negative with a margin greater than 2 mm, initial margin was positive but we resected negative and deemed close by the surgeon.? 2/23 lymph nodes were involved with tumor, positive lymph nodes were levels 2A and 3 with the largest ken disease measuring 1.2 cm, there is extranodal extension present.? pT3 pN3b From 07/19/2024 ? 09/01/2024: received adjuvant chemoradiation consisting of 6600cGy delivered to the area of extracapsular extension in the left neck, 5940 cGy delivered to the postop bed including oral cavity and left neck levels 2 through4 and 5412 cGy delivered to the high left to neck as well as the right neck levels 2 through 4 and bilateral supraclavicular space all in 33 fractions. He was treated with a VMAT technique using 6 MV photons. 12/10/2024: CT neck and chest completed, post op changes, no evidence of diseaserecurrence, no lung changes. Radiation Treatment History: 1) From 07/19/2024 ? 09/01/2024: received adjuvant chemoradiation consisting of 6600 cGy delivered to the area of extracapsular extension in the left neck, 5940cGy delivered to the postop bed including oral cavity and left neck levels 2 through 4 and 5412 cGy delivered to the high left to neck as well as the right neck levels 2 through 4 and bilateral supraclavicular space all in 33 fractions.He was treated with a VMAT technique using 6 MV photons. Interval History: Patient presents for follow-up approximately 9 months after completing adjuvant chemoradiation for head neck cancer. He is doing quite well overall improving. He still does complain of increased dry mouth for which he is using water and also some persistent taste changes but he has had nearly 100% recovery. He believes his skin is well healed and he denies redness or tanning or peeling at this time. He does report continued tightness in his neck left greater than right and he does stretching regularly. He denies swelling. Denies pain. Eating regular diet by mouth without much difficulty, no lower dentures yet, hasa hard time with crunchy food. Appetite has remained normal. He denies cough, shortness of breath, chest pain, bone pain. He denies headaches, vision changes, focal weakness/numbness, nausea/vomiting, hoarseness, otalgia. Persistent tongue numbness and some swelling. Energy level is still somewhat reduced but improving and he stays active in his daily life. He completes all ADLs without any difficulty and he denies having other problems or concerns at this time. Review of Systems: A 12-point review of systems was completed and was negative except for what is noted in the HPI/Interval History and by the nurse. Physical Exam: Weight: 196 lbs ECO KARNOFSKY SCORE: 80% CONSTITUTIONAL: Well-developed, well-nourished, and in no apparent distress. HEENT: Mucous membranes appear moist. Well-healed flap based reconstruction involving the left side of the oral tongue into the floor of mouth, soft, no nodularity or evidence of disease recurrence. No evidence of thrush or lesions within the visualized oropharynx or oral cavity. No trismus. Edentulous. Pupils are equal, round, and reactive to light and accommodation. Extraocular movements are intact. Sclerae are anicteric. NECK: Supple, no thyromegaly, and non-tender. Trachea midline. No cervical or supraclavicular adenopathy noted. CARDIAC: Regular rate and rhythm. Normal S1, S2. No murmurs, rubs, or gallops. PULMONARY/CHEST: Lungs are clear to auscultation and percussion bilaterally. No wheezes, rhonchi, or crackles noted. No increased work of breathing. 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 From 07/19/2024 ? 09/01/2024 he received adjuvant chemoradiation. Plan: Patient presents for follow-up approximately 9 months after completing chemoradiation adjuvantly for head neck cancer. CT neck and chest showed NISHA atabout 3 months post treatment, PET to be completed in 3 months. Clinically he has recovered very well from treatment associated toxicities. He still has somepersistent taste changes, dry mouth, and neck tightness. We did review management of these toxicities as well as likely timing for improvement or resolution. He is planning to follow-up with his ENT. Normal diet by mouth, will discuss with ENT about dentures. Continuing to follow-up closely with OFFICE SYSTEM ANALYST and dietary. For disease follow-up I recommended exam at least every 3 months and I will plan to have him return in 6 months and he was instructed to call with any further questions or concerns in the interim. Thank you for allowing me to participate in the management and care of your patient. If I may answer any questions in the interim, please do not hesitate tocontact me at any time. Cain Connor DO, MS [employer]el T[employer] Operator, Department of Radiation Oncology [facility] Coding Level of Care Code Off vis,est,level 3 Diagnoses Squamous cell carcinoma of oral cavity C06.9 05/30/25 1121 <Electronically signed by Cain Connor DO> Date _ Cain Connor DO Cosigner Signature: Date (if applicable) CC: ~ [facility] Work Phone: 1(827) 248-317005-21-2025 Note* Addendum Note - Patrick Krishnamurthy RN - 03/02/2025 11:57 AM EDTAddended by: PATRICK KRISHNAMURTHY on: 03/02/2025 11:57 AM Modules accepted: [employer] Work Phone: 1(987) 579-504805-21-2025 Note* Addendum Note - Patrick Krishnamurthy RN - 03/02/2025 11:57 AM EDTAddended by: PATRICK KRISHNAMURTHY on: 03/02/2025 11:57 AM Modules accepted: [employer] Work Phone: 1(392) 893-596505-21-2025 Miscellaneous Notes* Addendum Note - Patrick Krishnamurthy RN - 03/02/2025 11:57 AM EDTAddended by: PATRICK KRISHNAMURTHY on: 03/02/2025 11:57 AM Modules accepted: Orders documented in this [id number] History of Present illness Narrative* Clayton Villarreal MD - 03/02/2025 9:17 AM EDT Cancer history: [id number] 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 He's been doing well and hasn't lost much weight. Patient has gone a week without needing his feeding tube. His sense of taste is still deficient, but he has noticed improvement with tasting things like sour foods, and has been getting enough nutrition. He had some radiation sores in his mouth, but those have healed. Energy levels are good. Interval Hx: Quirino is here for tongue cancer follow-up and surveillance. He's been doing well, having made near-complete recovery since the radiation. Patient can eat whatever he wants, but does struggle a bit with more solid things. Occasional twinges of pain in his arm where the free flap was, but no other significant pain. Energy level is back, weight is stable, and a recent CT was negative. Allergies Patient has no known allergies. Medications No current outpatient medications on file. No current facility-administered medications for this visit. Family History The patient's family history is not on file.. Social History: Social History Socioeconomic History Marital status: Unknown Highest education level: 12th grade Tobacco Use Smoking status: Former Current packs/day: 0.00 Types: Cigarettes Quit date: 1974 Years since quittin.4 Smokeless tobacco: Never Substance and Sexual Activity Alcohol use: Not Currently Drug use: Not Currently Social Drivers of Health Financial Resource Strain: Patient Declined (09/29/2024) Overall Financial Resource Strain (CARDIA) Difficulty of Paying Living Expenses: Patient declined Food Insecurity: No Food Insecurity (09/29/2024) Hunger Vital Sign Worried About Running Out of Food in the Last Year: Never true Ran Out of Food in the Last Year: Never true Transportation Needs: No Transportation Needs (09/29/2024) PRAPARE - Transportation Lack of Transportation (Medical): No Lack of Transportation (Non-Medical): No Physical Activity: Insufficiently Active (09/29/2024) Exercise Vital Sign Days of Exercise per Week: 3 days Minutes of Exercise per Session: 30 min Stress: Patient Declined (09/29/2024) [employer] [place] [employer] - Occupational Stress Questionnaire Feeling of Stress : Patient declined Social Connections: Socially Integrated (09/29/2024) Social Connection and Isolation Panel [NHANES] Frequency of Communication with Friends and Family: More than three times a week Frequency of Social Gatherings with Friends and Family: More than three times a week Attends [employer] Services: More than 4 times per year Active Member of Clubs or Organizations: Yes Attends Club or Organization Meetings: Never Marital Status: Intimate Partner Violence: Not At Risk (09/29/2024) Humiliation, Afraid, Rape, and Kick questionnaire Fear of Current or Ex-Partner: No Emotionally Abused: No Physically Abused: No Sexually Abused: No Review of Systems - as per HPI, otherwise the balance of 10 systems is negative Physical Exam There were no vitals filed for this visit. General apperance: WN/WD adult in no apparent distress, sitting in a chair Ability to communicate: normal voice without hoarseness Head and Face: Atraumatic, normocephalic; skin with no masses or lesions; sinuses nontender to palpation, face symmetric with normal movement Salivary Glands: No enlargement or tenderness of parotid or submandibular glands Ears:External ears are intact without any lesions or masses. Eyes: EOM Intact, sclera anicteric, no conjunctival injection. Nose: External nose midline Oral Cavity: Lips, gums, gingiva are normal. Tongue protrusion is midline and non-tethered. Mild bulkiness to the flap, but no tethering. He can lift his tongue almost to the roof of mouth, and protrude it past his lips. Tongue soft, with no signs of recurrence. Oropharynx: the soft palate, tonsils, and lateral pharyngeal kohler are without lesions or masses; BOT is soft to palpation Neck: soft, no LAD, thyroid gland non-enlarged. A bit of radiation fibrosis, but no lymphedema or LAD. CV: No clubbing/cyanosis/edema in hands Respiration: Breathing comfortably, no stridor or stertor Neuro: A&Ox3, Cranial nerves 2-12 intact and symmetric. Normal affect. Specimen for Surgical Path 06/10/2024 Final Diagnosis A. Anterior inferior mucosal margin, excision: Squamous mucosa, negative for malignancy. B. Tongue, left hemiglossectomy: INVASIVE, POORLY-DIFFERENTIATED SQUAMOUS CELL CARCINOMA (2.6 cm in greatest dimension, 11 mm depth of invasion), see synoptic checklist. Extensive lymphovascular and perineural invasion present, see immunohistochemistry. Deep muscular soft tissue margin of excision is focally positive for squamous cell carcinoma and shows multiple areas with intralymphatic tumor located less than 1 mm from this margin (re-excised in additional tumor bed margins in Parts F, G, and H). All other margins of excision, negative for malignancy. C. Lymph nodes, Level 1A, regional excision: Three lymph nodes, negative for malignancy (0/3). D. Lymph nodes, Left Level 1B, regional excision: Three lymph nodes, negative for malignancy (0/3). Salivary gland with no significant histopathologic change. E. Lymph nodes, Left Level 2, regional excision: One lymph node, negative for malignancy (0/1). Fragments of salivary gland with no significant histopathologic change. F. Floor of mouth, new margin, excision: Squamous mucosa with salivary gland tissue and skeletal muscle, negative for malignancy. G. Anterior floor of mouth/tongue, excision: Margin negative for invasive carcinoma, with close intralymphatic tumor (single minute focus of intralymphatic carcinoma present on permanent sections but not on frozen sections). H. Posterior floor of mouth/tongue, excision: Squamous mucosa, negative for malignancy. I. Lymph nodes, Levels 2-4, regional excision: METASTATIC CARCINOMA present in one of six Level 2 lymph nodes with extranodal extension (1/6). METASTATIC CARCINOMA present in one matted lymph node of three Level 3 lymph nodes with extranodal extension (1/3). Six Level 4 lymph nodes, negative for malignancy (0/6). J. Lymph nodes, Level 4, regional excision: One lymph node, negative for malignancy (0/1). K. Lymph nodes, Additional Level 3, regional excision: Venous thrombus; no lymph nodes identified; negative for malignancy. Assessment/Recommendations: Quirino Cordero is a 75 year old male who presents today for: 1. Tongue cancer - No evidence of disease. - We'll request the CT scan be sent to us. - He just needs his thyroid levels checked. - Patient doesn't think his PCP has ordered them, but will follow up with that at the next visit. - Follow up in 6 months; we'll alternate with his radiation oncologist. Electronically signed by Osmany arce for and in the presence of Dr. Clayton Villarreal on 03/02/2025 at 9:17 AM All medical record entries made by the betty were at my direction and personally dictated by me. Connor reviewed and edited the record and confirm that the note above accurately reflects all work, treatment, procedures, and medical decision making performed by me. Clayton Villarreal MD * Carlotta Roman MA - 03/02/2025 9:16 AM EDT Patient was identified by name date of ,. Pharmacy updated vitals sign taken patient in exam room ready for . 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 December 14, 2024 10:30am Dysphagia acute December 22 8:13am [facility] Work Phone: 1([phone]) 418-261602-28-2025 Procedure note [facility] Speech Pathology [address] [place] [address] Modified Barium Swallow Study MR#: [id number] Acct: [id number] Name: QUIRINO CORDERO Rep #:[id number] : 1950 74 From: Duyen Louie, [facility]-OFFICE SYSTEM ANALYST Modified Barium Swallow Patient Information Study Date: 12/10/24 Study Time: 12:30 Direct Billable Minutes: 120 Total Minutes procedure & reportin Diagnosis: Squamous cell carcinoma of oral cavity (C06.9) Referring Physician: Cain Connor Reason for Referral: Objectively assess swallow function, assess risk for aspiration, and determine recommendations for least restrictive diet textures and compensatory strategies to improve safety of swallow. 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 From 07/19/2024 ? 09/01/2024 he received adjuvant chemoradiation. Dysphagia Hx: The patient followed w/ ST intermittently before, during, and after chemoradiation treatment to manage oropharyngeal dysphagia. MBSS 07/08/2025revealed mild-moderate oropharyngeal dysphagia, silent aspiration of thin liquids, and recommended the following diet and strategies: Easy to Chew textures (IDDSI Level 7) and Thin Liquids; FREQUENT ORAL CARE; Compensatory Strategies: Small Bites, Small Sips (SIPS ONE AT A TIME, HARD/EFFORTFUL SWALLOW EACH SIP, INTERMITTENT COUGH AND RE-SWALLOW), Slow Rate, Sitting upright and Remain sitting upright for 30 minutes after PO intake. Per pt, no changes to oral intake or symptoms since recent ST visit. 11/15/2024 OPST visit: Weight: 206lbs, 2oz. Pt has not followed w/ foot doctor, but reports purposefully trying to maintain weight ~200lbs for health reasons. OFFICE SYSTEM ANALYST made foot doctor aware of intentional weight loss, improving swallow function. Oral intake: 3, 16oz gomez, ice tea, and coffee daily. Pt is eating Easy to Chew textures, including tender meats, soups, chilis, pastas. Pt has occ difficulty getting thicker foods down his throat, but liquid wash fully clears. He denies any choking or coughing w/ oral intake. PEG intake: Only flushing. Taste: He cantaste some sour, salt, and sweet. Moderate dysgeusia. Moderate-severe hypo geusia. Odynophagia: N/A. Xerostomia: Mild-moderate, managed by biotene spray. Worse at nighttime. Current Diet Ordered: Easy to Chew textures / Thin liquids Dentition: Upper Dentures Mental Status: WNL Respiratory Status: Oxygenating on Room Air Penetration-Aspiration Scale Penetration-Aspiration Scale: OBJECTIVE ASSESSMENT OF SWALLOW FUNCTION (QUANTITATIVE ? PER TRIAL): PENETRATION / ASPIRATION SCALE (FONSECA): 1 = does not enter airway 2 = enters airway/above vocal folds/ejected 3 = enters airway/above vocal folds/not ejected 4 = enters airway/contacts vocal folds/ejected 5 = enters airway/contacts vocal folds/not ejected 6 = enters airway/below vocal folds/ejected 7 = enters airway/below vocal folds/not ejected despite effort 8 = enters airway/below vocal folds/no effort VIDEOFLOROSCOPIC SCALE SCORE (FONSECA): Grade I = aspiration of material that has penetrated into the laryngeal vestibule, intact cough reflex Grade II = aspiration < 10 % of the bolus, intact cough reflex Grade III = aspiration of < 10 % of the bolus, reduced cough reflex or aspiration of > 10 % of the bolus, intact cough reflex Grade IV = aspiration of > 10 % of the bolus, reduced cough reflex Penetration-Aspiration Scale Score Thin Liquid via teaspoon: Result: 2= enter airway/above vocal folds/ejected Thin Liquid via teaspoon Trial 2: Result: 2= enter airway/above vocal folds/ejected Thin Liquid via large single sip: cup: Result: 4= enters airway/contacts vocal folds/ejected [place] Thick Liquid via large single sip: cup: Result: 1= does not enter airway Pudding via teaspoon: Result: 1= does not enter airway Thin Liquid via single sip: straw: Result: 8= enters airway/below vocal folds/no effort 1/2 Cookie: Result: 1= does not enter airway Comment: Trace silent post prandial aspiration of previous trial. Thin Liquid via large single sip: cup Trial 2: Result: 5= enters airways/contacts vocal folds/not ejected Comment: Cued cough after the swallow = Effective in clearing residues from vocal folds and laryngeal vestibule. Thin Liquid via small single sip: cup Effortful swallow: Result: 2= enter airway/above vocal folds/ejected Thin Liquid via small single sip: cup Effortful swallow Trial 2: Result: 2= enter airway/above vocal folds/ejected Oral Phase Labial Seal: No Labial Escape Tongue Control During Bolus Hold: Posterior escape of less than half of bolus Bolus Preparation/Mastication: Disorganized chewing/mashing with solid pieces ofbolus unchewed Bolus Transport/Lingual Motion: Delayed initiation of tongue motion Oral Residue: Residue collection on oral structures Pharyngeal Phase Initiation of Pharyngeal Swallow: Bolus head in valleculae Soft Palate Elevation: Trace column of contrast/air between soft palate and pharyngeal wall Laryngeal Elevation: Partial superior movement thyroid cart/partial apprx aryt- epig petiole Anterior Hyoid Excursion: Partial anterior movement Epiglottic Movement: Complete inversion Laryngeal Vestibule Closure at Height of Swallow: Incomplete; narrow column of air/contrast in laryngeal vestibule Pharyngeal Stripping Wave: Present - complete Pharyngoesophageal Segment Opening: Parital distension and partial duration; parital obstruction offlow Tongue Base Retraction: Narrow column of contrast between tongue base & post. pharyngeal wall Pharyngeal Residue: Collection of residue within or on pharyngeal structures Esophageal Phase Esophageal Clearance: Esophageal retention w/ retrograde flow below pharyngoesophageal seg. Treatment Strategies Effects of treatment strategies attemped:: Cued cough after the swallow = Effective in clearing residues from vocal folds and laryngeal vestibule. Diagnosis/Impression Diagnosis: Mild-moderate oropharyngeal dysphagia R13.12 Impression: The oral phase is primarily marked by... -Decreased bolus control w/ premature posterior loss of <1/2 of liquid boluses to the vallecula prior to swallow onset. Improved bolus control from previous MBSS. -Delayed tongue motion for A-P transport. -Small pieces of regular textured cookie appeared un-chewed despite use of dentures. Recommend continue Easy to Chew textures. -Mild oral residue, which mostly cleared with independent use of second swallow as needed. The pharyngeal phase is primarily marked by... -Timely swallow onset. -Decreased airway closure during the swallow due to decreased laryngeal elevation and anterior hyoid excursion. -Trace SILENT aspiration of large sip of thin liquids via straw after the swallow. Deep laryngeal penetration of large sip of thin liquids by cup. Effortful swallow and decreased bolus size (small sip) were most effective in decreasing risk for aspiration. The esophageal phase is primarily marked by... -Min retention of pudding and liquids in the UES with retrograde flow to the pyriforms, no change from previous study. -Mild retention of pudding and thin liquids in the lower esophagus. Recommendations Diet: Easy to Chew Textures and Thin Liquids Comment: FREQUENT ORAL CARE Compensatory Strategies: Small Bites, Small Sips (SIPS ONE AT A TIME, HARD/EFFORTFUL SWALLOW EACH SIP, INTERMITTENT COUGH AND RE-SWALLOW), Slow Rate, Alternate bites/solids and sips/liquids, Sitting upright and Remain sitting upright for 30 minutes after PO intake Recommend Repeat Modified Barium Swallow: Yes Comment: 6 months for ongoing assessment of swallow function and aspiration risk s/p chemoradiation for SCC of oral cavity w/ metastases to lymph nodes of head and neck. Need for Skilled Speech Therapy Services: No Comment: OFFICE SYSTEM ANALYST provided lingual ROM, lingual resistance, effortful swallow, and jaw stretchhandout to the patient recommending he complete each exercise X10 reps, 3-5X/day. Pt verbalized understanding and did not feel he required additional instruction at this time. Pt also verbalized good understanding of recommended compensatory strategies to decrease risk for aspiration, as well as importance for thorough oral care following re-education by OFFICE SYSTEM ANALYST after MBSS. Pt feels he is already aware of these compensations and does not require additional training. If need for re-instruction in strategies or exerciseprogram, please call to re- schedule w/ OP ST. Will discharge current dysphagia POC. Recommended Referrals: GI Consult (Retention in UES w/ retrograde flow to the pyriform sinuses w/ liquids and pudding. Retention of pudding and thin liquids in the lower esophagus.) Education Completed: 1. Described result of evaluation., 2. Pt understands evaluation & agrees with goals and treatment plan. and 4. Family/caregivers understand evaluation & agree w/ goals & tx plan. Status Active ST Patient: Active Contact Information [facility] Speech Therapy:: Duyen Moore M.A. CCC-OFFICE SYSTEM ANALYST? Speech-Language Pathologist?? [facility] [address] [place] [address]? [email or web address]?? [phone] 12/10/24 1530 DACIA Otto-OFFICE SYSTEM ANALYST> Date/Time Duyen Moore M.A. CCC-OFFICE SYSTEM ANALYST Co-Signature Required for all Medicare patients Date/Time Co-Signature CC: ~ [facility]02-28-2025 Radiology Diagnostic study note [facility] Imaging Services [address] [place] [address] Soft Tissue Neck WITH Contrast MR#: [id number] Acct: [id number] Name: QUIRINO CORDERO Rep #: [id number] : 1950 M 74 From: Bartolome Bernard MD PCP: Dr. Salvador Brown MD Status: REG CLI Study:Soft Tissue Neck WITH Contrast Date of Exam: 12/10/24 Exam# [id number] Ordering Dr: Cain Connor DO PROCEDURE: SOFT TISSUE NECK WITH CONTRAST REASON FOR EXAM: History of cancer of the tongue with partial resection of the tongue.. Prior lymph node resection. TECHNIQUE: CT of the soft tissues of the neck from the orbits to the upper mediastinum withintravenous contrast. CONTRAST: 100 cc of Isovue-300 injected intravenously. COMPARISON: None. FINDINGS: A left-sided port a catheter is seen with the tip in the superior vena cava. Salivary glands: Unremarkable. Lymph nodes: No cervical lymphadenopathy. Surgical clips are seen along the left side of the tongue in keeping with partial resection of the tongue. Thyroid: Unremarkable. Vasculature: Mild calcified plaque of the carotid arteries. Orbits: Unremarkable at visualized levels. Paranasal sinuses and mastoids: Grossly clear at visualized levels. Lung apices: Increased markings in the lung apices suggestive of scarring. Upper mediastinum: Visualized mediastinum is unremarkable. Bones: Multilevel degenerative changes of the spine. CT/Soft Tissue Neck WITH Contrast IMPRESSION: Status post partial resection of the tongue on the left side as described. Scarring at the lung apices. One or more dose reduction techniques were used (e.g., Automated exposure control, adjustment of the mA and/or kV according to patient size, use of iterative reconstruction technique). Reading Location: [facility] CC: Dr. Slavador Brown MD; Dr. Cain Connor DO ~ Loft Worker Apprentice: Signed [facility]02-28-2025 Radiology Diagnostic study note [facility] Imaging Services [address] [place] [address] Chest WITH Contrast MR#: [id number] Acct: [id number] Name: QUIRINO CORDERO Rep #: [id number] : 1950 M 74 From: Bartolome Bernard MD PCP: Dr. Salvador Brown MD Status: REG CLI Study:Chest WITH Contrast Date of Exam: 12/10/24 Exam# [id number] Ordering Dr: Cain Connor DO PROCEDURE: CHEST WITH CONTRAST REASON FOR EXAM: History of tongue carcinoma and partial resection. TECHNIQUE: Chest CT with intravenous contrast. CONTRAST: 100 cc of Isovue-300. COMPARISON: Comparison is made with prior study dated May 19, 2024. FINDINGS: Hardware: A left-sided port a catheter is seen with the tip in the superior venacava. Lymph nodes: Calcified right hilar lymph nodes. Heart and Vasculature: Normal heart size. No pericardial effusion. Atherosclerotic calcifications of the thoracic aorta. Pulmonary arteries are unremarkable. Coronary artery calcification. Lungs and Airways: Moderate emphysematous changes are present. Stable calcifiedgranuloma in the superior segment of the right lower lobe. Pleura: No pleural effusion. No pneumothorax. Upper Abdomen: Visualized portions of the upper abdominal viscera are unremarkable. Bones: Degenerative changes of the thoracic spine. CT/Chest WITH Contrast IMPRESSION: Stable examination. Emphysematous changes and scarring. One or more dose reduction techniques were used (e.g., Automated exposure control, adjustment of the mA and/or kV according to patient size, use of iterative reconstruction technique). Reading Location: [id number] CC: Dr. Salvador Brown MD; Dr. Cain Connor, DO ~ Loft Worker Apprentice: Signed [facility]12-18-2024 History of Present illness Narrative* Carlotta Roman MA - 09/29/2024 8:38 AM EST Patient was identified by name date of ,. Pharmacy updated vitals sign taken patient in exam room ready for MD. Carlotta Roman MA * Clayton Villarreal MD - 09/29/2024 8:32 AM EST Cancer history: [id number] SCCA of the oral tongue - s/p partial glossectomy, neck dissection and RFFF for reconstruction - now s/p chemoXRT completed 09/01/24 CC: Chief Complaint Patient presents with Monitoring/follow-up Follow up from surgery HPI 05/26/2024: Quirino Cordero is a 74 year old male previously seen by Dr. Mi for a canceroustongue lesion that's been present for several months. He's here today for pre-op regarding tongue cancer, currently scheduled for surgery on the . I hadn't had a chance to meet him, so we're establish care and discussing the procedure one more time. He has tongue pain radiating to his ear, but aside from that, no significant changes since his visit with Dr. Mi. Interval Hx: Quirino is here for follow-up after excision and radiation for his tongue cancer, having finished the latter on 09/01. He's been doing well and hasn't lost much weight. Patient has gone a week without needing his feeding tube. His sense of taste is still deficient, but he has noticed improvement with tasting things like sour foods, and has been getting enough nutrition. He had some radiation sores in his mouth, but those have healed. Energy levels are good. Allergies Patient has no known allergies. Medications Current Outpatient Medications Medication Sig Dispense Refill gabapentin (NEURONTIN) 100 MG capsule TAKE 1 CAPSULE 3 TIMES DAILY FOR 3 DAYS, THEN TAKE 2 CAPS 3 TIMES DAILY FOR 3 DAYS, THEN TAKE 3 CAPS 3 TIMES DAILY THEREAFTER. MAY CAUSE SLEEPINESS. CALL PCP TO REPORT EFFECTIVENESS No current facility-administered medications for this visit. Family History The patient's family history is not on file.. Social History: Social History Socioeconomic History Marital status: Unknown Highest education level: 12th grade Tobacco Use Smoking status: Former Current packs/day: 0.00 Types: Cigarettes Quit date: 1974 Years since quittin.9 Smokeless tobacco: Never Substance and Sexual Activity Alcohol use: Not Currently Drug use: Not Currently Social Drivers of Health Financial Resource Strain: Patient Declined (09/29/2024) Overall Financial Resource Strain (CARDIA) Difficulty of Paying Living Expenses: Patient declined Food Insecurity: No Food Insecurity (09/29/2024) Hunger Vital Sign Worried About Running Out of Food in the Last Year: Never true Ran Out of Food in the Last Year: Never true Transportation Needs: No Transportation Needs (09/29/2024) PRAPARE - Transportation Lack of Transportation (Medical): No Lack of Transportation (Non-Medical): No Physical Activity: Insufficiently Active (09/29/2024) Exercise Vital Sign Days of Exercise per Week: 3 days Minutes of Exercise per Session: 30 min Stress: Patient Declined (09/29/2024) [employer] [place] [employer] - Occupational Stress Questionnaire Feeling of Stress : Patient declined Social Connections: Socially Integrated (09/29/2024) Social Connection and Isolation Panel [NHANES] Frequency of Communication with Friends and Family: More than three times a week Frequency of Social Gatherings with Friends and Family: More than three times a week Attends [employer] Services: More than 4 times per year Active Member of Clubs or Organizations: Yes Attends Club or Organization Meetings: Never Marital Status: Intimate Partner Violence: Not At Risk (09/29/2024) Humiliation, Afraid, Rape, and Kick questionnaire Fear of Current or Ex-Partner: No Emotionally Abused: No Physically Abused: No Sexually Abused: No Review of Systems - as per HPI, otherwise the balance of 10 systems is negative Physical Exam There were no vitals filed for this visit. General apperance: WN/WD adult in no apparent distress, sitting in a chair Ability to communicate: normal voice without hoarseness Head and Face: Atraumatic, normocephalic; skin with no masses or lesions; sinuses nontender to palpation, face symmetric with normal movement Salivary Glands: No enlargement or tenderness of parotid or submandibular glands Ears:External ears are intact without any lesions or masses. Eyes: EOM Intact, sclera anicteric, no conjunctival injection. Nose: External nose midline Oral Cavity: Lips, gums, gingiva are normal. Tongue protrusion is midline and non-tethered. Flap onthe left lateral aspect of his tongue looks nice and healed. It's started to atrophy a bit, but still has a little bulkiness to it. Limited mobility of the tongue to the left, but he can protrude andreach the roof of mouth well. One residual radiation sore along the buccal mucosa, but no mucositisotherwise. Oropharynx: the soft palate, tonsils, and lateral pharyngeal kohler are without lesions or masses; BOT is soft to palpation Neck: soft, no LAD, thyroid gland non-enlarged. Incision has healed beautifully. Just a bit of lymphedema above the flap. CV: No clubbing/cyanosis/edema in hands Respiration: Breathing comfortably, no stridor or stertor Neuro: A&Ox3, Cranial nerves 2-12 intact and symmetric. Normal affect. Specimen for Surgical Path 06/10/2024 Final Diagnosis Assessment/Recommendations: Quirino Cordero is a 74 year old male who presents today for: 1. Tongue cancer - No evidence of disease at this point. - He's getting follow-up imaging in a couple months, and is being followed closely by [facility] and [facility] in [place] home city. - Follow up in February, to discuss surveillance and how to handle that with the distance he has to travel to see me. - Otherwise, he's doing great. Electronically signed by Osmany Salcido scribing for and in the presence of Dr. Clayton Villarreal on 09/29/2024 at 8:32 AM All medical record entries made by the scribe were at my direction and personally dictated by me. Connor reviewed and edited the record and confirm that the note above accurately reflects all work, treatment, procedures, and medical decision making performed by me. 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 December 14, 2024 10:30am 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 December 14, 2024 10:30am Dysphagia acute December 22 8:13am [facility] Work Phone: 1(220) 460-851011-18-2024 Evaluation note* Diagnosis Onset Date Resolution Status Admit Date Encounter for chemotherapy management acute August 30 024 8:16am 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 November 18th, 2 024 8:16am 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 August 30, 024 8:16am 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 resolved August 30, 024 8:16am 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 September 01, 024 8:25am 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 September 06, 024 9:55am 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 September 06, 024 9:55am 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 resolved September 06, 024 9:55am 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 September 14 12:30pm 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 September 14 12:30pm 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 resolved September 14 12:30pm Prerenal azotemia resolved 2023 12:30pm 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 September 27, 024 8:20am 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 December 14, 2024 10:29am 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 December 14, 2024 10:30am 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 December 14, 2024 10:30am Dysphagia acute December 22 8:13am [facility] Work Phone: 1(734) 466-522610-11-2024 Telephone encounter Note* Telephone Encounter - Yudith Thomas RN - 07/23/2024 3:14 PM EDT What is the need: Medicare VERENA Review Situation: Patient past 30 day readmission period Background: patient discharged on 06/16/2024 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) Assessment: -reviewed careport no admission/discharges during review period Recommendation: program closed at this time Yudith Thomas RN [facility] Work Phone: 1(790) 150-877410-11-2024 Miscellaneous Notes* Telephone Encounter - Yudith Thomas RN - 07/23/2024 3:14 PM EDT What is the need: Medicare VERENA Review Situation: Patient past 30 day readmission period Background: patient discharged on 06/16/2024 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) Assessment: -reviewed careport no admission/discharges during review period Recommendation: program closed at this time Yudith Thomas RN documented in this [id number] [facility] 07-08-2024 Procedure note [facility] Speech Pathology [address] [place] [address] Modified Barium Swallow Study MR#: [id number] Acct: [id number] Name: QUIRINO CORDERO Rep #:[id number] 1 : 1950 74 From: Duyen Louie, [facility]-OFFICE SYSTEM ANALYST Modified Barium Swallow Patient Information Study Date: 07/08/24 Study Time: 10:00 Direct Billable Minutes: 120 Total Minutes procedure & reportin Diagnosis: Squamous cell carcinoma of oral cavity C06.9 Referring Physician: Cain Connor Reason for Referral: Objectively assess swallow function, assess risk for aspiration, and determine recommendations for least restrictive diet textures and compensatory strategies to improve safety of swallow. 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 Pt is planned for PEG and port placement. Pt is planned for chemoradiation treatment beginning 07/19/2024. Dysphagia Hx: BSE completed at [facility]. He was diagnosed w/ mild oral dysphagia and recommended for pureed liquids and minced & moist solids. Per patient, he had a dysphagia therapy session yesterday where he learned oropharyngeal exercises. He reports consuming regular textures / thin liquids athome. OFFICE SYSTEM ANALYST inspected oral cavity as the patient reported having lakshmi removed from histongue yesterday. No redness/irritation. Tongue had mildly decreased ROM w/ lateral movement R and mild-moderately decreased ROM w/ lateral movement L. He would like to transfer his dysphagia care tothis OFFICE SYSTEM ANALYST during and followinghis chemoradiation treatment. He wishes to address speech production at a later time. Current Diet Ordered: Regular textures / Thin liquids Dentition: Edentulous (has dentures, not present) Mental Status: WNL Respiratory Status: Oxygenating on Room Air Penetration-Aspiration Scale Penetration-Aspiration Scale: OBJECTIVE ASSESSMENT OF SWALLOW FUNCTION (QUANTITATIVE ? PER TRIAL): PENETRATION / ASPIRATION SCALE (FONSECA): 1 = does not enter airway 2 = enters airway/above vocal folds/ejected 3 = enters airway/above vocal folds/not ejected 4 = enters airway/contacts vocal folds/ejected 5 = enters airway/contacts vocal folds/not ejected 6 = enters airway/below vocal folds/ejected 7 = enters airway/below vocal folds/not ejected despite effort 8 = enters airway/below vocal folds/no effort VIDEOFLOROSCOPIC SCALE SCORE (FONSECA): Grade I = aspiration of material that has penetrated into the laryngeal vestibule, intact cough reflex Grade II = aspiration < 10 % of the bolus, intact cough reflex Grade III = aspiration of < 10 % of the bolus, reduced cough reflex or aspiration of > 10 % of the bolus, intact cough reflex Grade IV = aspiration of > 10 % of the bolus, reduced cough reflex Penetration-Aspiration Scale Score Thin Liquid via teaspoon: Result: 2= enter airway/above vocal folds/ejected Thin Liquid via teaspoon Trial 2: Result: 2= enter airway/above vocal folds/ejected Thin Liquid via sequential sips: cup: Result: 5= enters airways/contacts vocal folds/not ejected [place] Thick Liquid via small single sip: cup: Result: 1= does not enter airway Pudding via teaspoon: Result: 1= does not enter airway Comment: Esophageal screen - Mild retention in distal esophagus w/ min retrograde flow. Thin Liquid via single sip: straw: Result: 8= enters airway/below vocal folds/no effort Comment: Esophageal screen - Complete clearance after initial retention in distal esophagus w/ retrograde flow. Thin Liquid via small single sip: cup: Result: 8= enters airway/below vocal folds/no effort Thin Liquid via small single sip: cup Effortful swallow: Result: 2= enter airway/above vocal folds/ejected 1/2 Cookie: Result: 1= does not enter airway Thin Liquid via sequential sips:straw Effortful swallow: Result: 5= enters airways/contacts vocal folds/not ejected (trace) [place] Thick Liquid via small single sip: cup Trial 2: Result: 2= enter airway/above vocal folds/ejected Oral Phase Labial Seal: Interlabial escape, no progression to anterior lip Tongue Control During Bolus Hold: Posterior escape of greater than half of bolus Bolus Preparation/Mastication: Slow prolonged chewing/mashing with complete recollection (Small pieces unchewed) Bolus Transport/Lingual Motion: Delayed initiation of tongue motion Oral Residue: Residue collection on oral structures Pharyngeal Phase Initiation of Pharyngeal Swallow: Bolus head at posterior laryngeal surgace of epiglottis Soft Palate Elevation: Trace column of contrast/air between soft palate and pharyngeal wall Laryngeal Elevation: Partial superior movement thyroid cart/partial apprx aryt- epig petiole Anterior Hyoid Excursion: Partial anterior movement Epiglottic Movement: Complete inversion Laryngeal Vestibule Closure at Height of Swallow: Incomplete; narrow column of air/contrast in laryngeal vestibule Pharyngeal Stripping Wave: Present - complete Pharyngoesophageal Segment Opening: Parital distension and partial duration; parital obstruction offlow Tongue Base Retraction: Narrow column of contrast between tongue base & post. pharyngeal wall Pharyngeal Residue: Trace residue within or on pharyngeal structures Esophageal Phase Esophageal Clearance: Esophageal retention w/ retrograde flow through pharyngoesophageal seg Diagnosis/Impression Diagnosis: Mild-moderate oropharyngeal dysphagia R13.12 Impression: The oral phase is primarily marked by... -Decreased bolus control s/p partial glossectomy w/ flap reconstruction w/ premature posterior lossof liquid to the posterior surface of the epiglottis prior to swallow onset. -Delayed tongue motion for A-P transport. -Small pieces of cookie appeared un-chewed; however, pt reported leaving his dentures at home. -Mild oral residue, which mostly cleared with independent use of second swallow. The pharyngeal phase is primarily marked by... -Delayed swallow onset. -Decreased airway closure during the swallow due to decreased laryngeal elevation and anterior hyoid excursion. -SILENT aspiration of thin liquids via cup and straw. Effortful swallow and decreased rate of intake were most effective in decreasing risk for aspiration. The esophageal phase is primarily marked by... -Min retention of pudding and liquids in the upper esophagus with retrograde flow through the UES to the pyriforms. -Mild retention of pudding in the lower esophagus, which cleared w/ liquid wash. Recommendations Diet: Regular Textures (Easy to Chew textures - IDDSI Level 7) and Thin Liquids Comment: FREQUENT ORAL CARE Compensatory Strategies: Small Bites, Small Sips (SIPS ONE AT A TIME, HARD/EFFORTFUL SWALLOW EACH SIP, INTERMITTENT COUGH AND RE-SWALLOW), Slow Rate, Sitting upright and Remain sitting upright for 30minutes after PO intake Recommend Repeat Modified Barium Swallow: Yes Comment: Repeat MBSS 3 months after completion of chemoradiation to monitor swallow function as the patient is at risk for worsening dysphagia and aspiration risk s/p radiation treatment. Need for Skilled Speech Therapy Services: Yes Comment: Recommend continued OP ST during and following chemoradiation treatment for ongoing assessment of diet tolerance and aspiration risk, education re: potential short- and long-term impacts of chemoradiation that negatively impact swallow function, training in oropharyngeal exercise program (lingual re sistance/coordination, Ingrid, Effortful breath hold and swallow, Yawn stretch), and training in recommended strategies to encourage safe po intake. Education Completed: 1. Described result of evaluation., 2. Pt understands evaluation & agrees with goals and treatment plan., 4. Family/caregivers understand evaluation & agree w/ goals & tx plan., 7. Pt requires further education on strategies & risks. and 8. Family/caregivers require further education on strategies & risks. Status Active ST Patient: Active Contact Information [facility] Speech Therapy:: Duyen Moore M.A. CCC-OFFICE SYSTEM ANALYST? Speech-Language Pathologist?? [facility] [address] [place] [address]? [email or web address]?? [phone] 07/08/24 1250 DACIA Otto-OFFICE SYSTEM ANALYST> Date/Time Duyen Moore M.A., CCC-OFFICE SYSTEM ANALYST Co-Signature Required for all Medicare patients Date/Time Co-Signature CC: ~ [facility]09-25-2024 History of Present illness Narrative* Omayra Herrera CCC-OFFICE SYSTEM ANALYST - 07/07/2024 9:59 AM EDT SPEECH LANGUAGE PATHOLOGY OUTPATIENT DAILY TREATMENT NOTE Location: [facility] Patient identified by patient stating name and date of . Payor: MEDICARE / Plan: MEDICARE PART A & B / Product Type: Medicare Time In: 9:15am Time Out: 9:56am Duration: 41 min Session #: 12/20 SUBJECTIVE: Patient subjective/goals: Patient arrives early for appointment accompanied by and daughter. Patient reports eating regular solids like hamburger without a bun, shredded pork, bread, green beans, doughnuts, and chicken along with thin liquids like water, tea, Boost, and coffee without overt signs of airway invasion. Patient states starting chemoradiation treatment soon in [place] where he will also be receiving speech therapy throughout treatment. Patient states he is scheduled for a MBS study tomorrow through speech therapy at [place] location. (I reached out to OFFICE SYSTEM ANALYST in [place].) Pain:None reported Scale (if yes): n/a Location: n/a OBJECTIVE: Patient will complete [id number] of effortful swallows to optimize oropharyngeal pressure in anticipation of dysphagia. -- completed exercise 10x Patient will complete lingual press for 10 seconds [id number] to optimize tongue and palate seal in anticipation of dysphagia. -- completed exercise 10x Patient will complete pharyngocise exercises (falsetto, tongue press, effortful swallow, jaw opening against resistance) to proactively manage anticipated radiation associated dysphagia 10x each, 4x/day. -- not addressed Patient will complete jaw opening against resistance for 30 seconds 10x to optimize mandibular opening in anticipation of trismus. -- completed jaw opening against resistance 10x for 10 seconds each Patient will implement compensatory strategies given written and verbal education to manage radiation associated dysphagia (odynophagia, xerostomia, dysgeusia, fatigue, aspiration risk) in order to tolerate PO intake without >2 week NPO status and optimize long-term swallow function. -- Discussed radiation associated dysphagia with loss of taste, pain, and dry mouth. Encouraged patient to eat and drink by mouth as much as tolerated everyday of CXRT. Discussed likelihood of patient downgraded to pureed solids and thin liquids prison throughout CXRT. Oral supplements given today. -- Patient is considering a PEG tube, but is hoping to not use it if he gets it. Patient will participate in further voice, trismus, and/or lymphedema evaluation as deemed clinically appropriate by the treating clinician. -- not addressed ASSESSMENT: Patient seen for follow up session targeting swallowing function prior to chemoradiation treatment which starts on 07/19/24. Patient is currently consuming a regular solid diet with thin liquids without evidence of pulmonary compromise. Encouraged patient to continue thi diet as tolerated. Discusseddiet modifications and role of non-oral nutrition as needed, though patient appears appropriate to continue PO diet throughout chemoradiation. Patient has not continued swallow exercises. Discussed benefits for rehabilitation s/p surgery and prehabilitation given upcoming CXRT. Patient completed ten repetitions of effortful swallow, tongue press, jaw opening against resistance, and teetee today. Patient agreeable with practicing exercises daily at home. PLAN: Continue POC independently and with OFFICE SYSTEM ANALYST in [place] Follow up with [facility] OFFICE SYSTEM ANALYST after completing CXRT [facility] Goals: 1. Patient will tolerate a PO diet without pulmonary compromise. NEW GOALS Patient will complete teetee [id number] a day to optimize posterior pharyngeal wall contraction during swallowing. HOME PROGRAM/EDUCATION: Diet Recommendation: Regular Solids and Thin Liquids Exercises: Tongue Press 10x5 sets/day Effortful Swallow 10x5 sets/day Teetee 10x5 sets/day Chin Opening against Resistance [id number] seconds/day Vicente Dow Facilities Management Executive Clinician I was present during the entire speech therapy session with patient. I directly supervised Vicente Dow and assisted her with the assessment, treatment, documentation and billing for this visit. I agree with her clinical decision making and have discussed the case with her. Omayra Herrera M.S., CCC-OFFICE SYSTEM ANALYST Speech Language Pathologist documented in this [id number] History of Present illness Narrative* Duyen Enciso, NATHEN - 07/07/2024 9:00 AM EDT Images from the original note were not included. Documentation: Mode: In Person ADULT NUTRITION FOLLOW-UP Reason for Referral: Squamous Cell Carcinoma of Oral Cavity Referring Provider: Dr. Mi Chief Complaint: I'm feeling better Previous Goals Set/Progress 1. Aim to eat 6-8 small/frequent soft and easy to chew/swallow foods, eating every 2-3 hours 2. Include a protein source with all meals/snacks 3. Keep a beverage with you at all times, sipping liquids throughout the day 4. Okay to drink Boost [facility] PO between meals to help meet needs Assessment: Quirino Cordero is a 74 year old male No past medical history on file. Past Surgical History: Procedure Laterality Date DISSECTION, RADICAL NECK, FREE FLAP N/A 06/10/2024 Procedure: PARTIAL GLOSSECTOMY, TRACHEOSTOMY, NECK DISSECTION; Surgeon: Clayton Villarreal MD; Location: PERIOPERATIVE SERVICES; Service: Otolaryngology DISSECTION, RADICAL NECK, MODIFIED N/A 06/10/2024 Procedure: LEFT RADIAL FOREARM FREE FLAP, SPLIT THICKNESS SKIN GRAFT FROM THIGH; Surgeon: Giorgio Mi MD; Location: PERIOPERATIVE SERVICES; Service: Otolaryngology ESOPHAGOSCOPY RIGID N/A 06/10/2024 Procedure: ESOPHAGOSCOPY RIGID; Surgeon: Giorgio Mi MD; Location: PERIOPERATIVE SERVICES; Service: Otolaryngology LARYNGOSCOPY N/A 06/10/2024 Procedure: LARYNGOSCOPY, DIRECT; Surgeon: Giorgio Mi MD; Location: PERIOPERATIVE SERVICES; Service: Otolaryngology has No Known Allergies. Medication: Current Outpatient Medications: chlorhexidine (PERIDEX) 0.12 % oral solution, Swish 15 mL by mouth for 30 seconds then lightly spitout 2 times daily. Do not swallow., Disp: 473 mL, Rfl: 3 bacitracin 500 UNIT/GM OINT ointment, Apply topically 3 times daily. Apply thin layer to incisions,Disp: 28 g, Rfl: 1 doxazosin (CARDURA) 4 MG tablet, 1 Tablet by NG Tube route daily., Disp: 30 Tablet, Rfl: 3 acetaminophen (TYLENOL) 160 MG/5ML oral solution, 31.2 mL by NG Tube route every 6 hours as needed for Fever or Pain., Disp: 236 mL, Rfl: 1 aspirin 81 MG chewable tablet, 1 Tablet by NG Tube route daily for 1 day., Disp: 1 Tablet, Rfl: 0 naloxone 4 mg/0.1 mL nasal liquid, Use 1 Taylors in one nostril (alternate sides) as needed for Drug Overdose for up to 1 dose. Every 2-3 mins. until help arrives., Disp: 1 Each, Rfl: 1 ibuprofen (MOTRIN) 800 MG tablet, Take 800 mg by mouth every 8 hours., Disp: , Rfl: metoprolol (LOPRESSOR) 25 MG tablet, Take 25 mg by mouth 2 times a day., Disp: , Rfl: atorvastatin (LIPITOR) 80 mg tablet, 80 mg every evening., Disp: , Rfl: busPIRone (BUSPAR) 10 MG tablet, , Disp: , Rfl: irbesartan (AVAPRO) 75 MG tablet, every evening., Disp: , Rfl: latanoprost (XALATAN) 0.005 % ophthalmic solution, INSTILL 1 DROP INTO EACH EYE AT BEDTIME, Disp: ,Rfl: Vitamins/Minerals: Vitamin D3 Biochemical Data/Medical testing/Procedures: No results found for: HBA1C Lipids (last 3 years, up to 8 values) No lab values to display. BMP (last 3 years, up to 8 values) 06/16/2024 06/15/2024 06/14/2024 06/13/2024 06/12/2024 06/11/2024 06/10/2024 06/10/2024 1:05 AM 3:58 AM 5:04 AM 5:52 AM 4:29 AM 5:31 AM 8:21 PM 1:48 PM Na 140 141 137 138 139 139 141 141 K 4.2 4.6 4.1 4.3 4.1 4.1 4.6 3.9 Cl 109 108 104 109 107 107 107 110 CO2 24 23 24 21 26 25 25 -- Gap 11 15 13 12 10 11 14 -- Glu 98 104 108 110 121 148 149 143 BUN 32 30 18 16 20 25 24 -- Cr 0.81 0.99 0.85 0.69 0.83 1.10 1.22 -- Ca 8.6 8.6 8.8 7.1 8.1 8.9 9.1 -- eGFR 92 79 91 97 91 70 62 -- CBC (last 3 years, up to 8 values) 06/16/2024 06/15/2024 06/14/2024 06/13/2024 06/12/2024 06/11/2024 06/10/2024 06/10/2024 1:05 AM 2:53 AM 5:04 AM 5:31 AM 4:29 AM 4:42 AM 8:04 PM 1:48 PM WBC 7.4 6.8 8.6 7.5 9.3 9.8 10.4 -- RBC 3.96 4.34 4.46 3.72 4.00 3.97 4.42 -- Hgb 12.1 13.0 13.6 11.5 12.4 12.2 13.3 12.7 Hct 36.5 39.9 40.8 34.5 36.9 36.6 40.6 39.0 MCV 92 92 92 93 92 92 92 -- RDW 15.2 15.1 14.6 15.1 14.8 15.1 14.9 -- Plt 216 193 190 169 162 173 160 -- LFT's (last 3 years, up to 8 values) No lab values to display. Anthropometric Measurements: Weight: 226# Height: 67 BMI: 35.5 UBW: 220-240# Adj BW: 168# BP Readings from Last 1 Encounters: 06/16/24 120/62 Weight Change Since Last Visit: +7.7# Weight history: Wt Readings from Last 10 Encounters: 06/23/24 218 lb 12.8 oz (99.2 kg) 06/10/24 232 lb (105.2 kg) 05/26/24 232 lb 1.6 oz (105.3 kg) 05/26/24 232 lb (105.2 kg) 05/11/24 236 lb 1.6 oz (107.1 kg) Significant wt gain of 3.4% x2 weeks Food/Nutrition-Related History: Appetite: good Supplements: none Enteral order: 1.5 cartons Boost [facility] BID (8A; 12P); 1 carton Boost [facility] BID (4P; 8P) Water flushes: 150 mL H20 before/after q bolus Provides: 1185 mL, 2650 kcal, 110 g pro, 795 mL H20, 1200 mL H20 flush, 1995 mL total free water Route: NG DME: [facility] Last Delivered: 06/2024 Last Ordered: 06/2024 GI Sx: None Urine: Yellow Dentition: Dentures - ill-fitting, wears top plate while eating Allergies/Intolerance: None 24 Hour Recall: B: donut (1) Snack: none L: hamburger shayy-no bun (1), hot dog-no bun (1), green beans, bread dipped in water Snack: none D: macaroni and cheese, chicken breast Snack: none Beverages: ICEE gmoez (2 bottles), iced tea, water, coffee Nutrition Focused Physical Exam: Muscle loss: Confucianism region: well defined Clavicle region: not visible/not prominent Scapula region: no depressions Hand: muscle bulges Anterior thigh: well rounded Posterior calf: well developed Fat loss: Orbital region: bulged fat pads Tricep/bicep region: ample fat tissue Rib/back region: chest full/ribs do not show Edema: none Estimated Needs: 3009-5074 kcal/d 30-35 kcal/kg Adj BW 99-114 g pro/d 1.3-1.5 g pro/kg Adj BW 9483-6328 mL/d fluid Assessment for Malnutrition: At high risk for malnutrition 74 y/o M with PMHx of HTN and former smoker. Diagnosed with SCCa of the L tongue, T2N0Mx. Now s/p resection of L tongue SCCa, L neck dissection, and reconstruction with L radial forearm free tissue transfer and tracheostomy on 06/10. Plan to start adjuvant chemoradiation 07/19, closer to home. Pt reports that he is feeling well. Appetite remains good. States that he is able to eat more textures than a week ago, making modifications when needed. Occasionally gets good stuck on L side of mouth, uses fingers to move to R side of mouth. Denies any pain/difficulties swallowing. Denies any NVCD. Noted significant wt gain x2 weeks, desired. Pt starting concurrent chemoradiation in ~2 weeks. States doctors recommending PEG placement. Discussed in depth with pt and OFFICE SYSTEM ANALYST role role of PEG and tube feeding during tx, eating and drinking PO goals, and pros/cons to PEG. All questions answered. Continue to follow. Nutrition Diagnosis: 1. Increased nutrient needs kcal/pro r/t increased demand for nutrients AEB conditions associated with a diagnosis or treatment Nutrition Interventions: Recommend modifications (E-2.2) Monitoring/Goals: 1. Aim to eat 6-8 small/frequent soft and easy to chew/swallow foods, eating every 2-3 hours 2. Include a protein source with all meals/snacks 3. Keep a beverage with you at all times, sipping liquids throughout the day 4. Okay to drink Boost [facility] PO between meals to help meet needs Evaluation: Patient/Warp Tying Machine Knotter verbalized understanding: Yes The patient appears to have good understanding of the instruction given. Referrals: None Total time spent with patient-30 minutes, of which 30 minutes was spent counseling. MNT Time: 2 units Visit Time: 3 of 3 approved visits MARISA Womack, NATHEN, LD Pager [phone] documented in this [id number] History of Present illness Narrative* Giorgio Mi MD - 07/07/2024 8:46 AM EDT HPI: Quirino Cordero was seen 07/07/2024 in the [facility] for follow upvisit with hx of T3N3b left lateral tongue SCCa now s/p surgery with partial glossectomy, left neckdissection (Latrice) and left forearm free flap Tricia) on 06/10/24. Final path with 2/23 nodes, PNI/LVI +, initial deep muscular soft tissue margin positive but re-resection at anterior floor of mouth Margin negative for invasive carcinoma, with close intralymphatic tumor (single minute focus of intralymphatic carcinoma present on permanent sections but not on frozen sections). Interval History (07/07/24) Overall doing well. Tolerating PO without any significant issues and eating near normal diet. Pain well controlled. Denies any fevers, chills, increased neck swelling or drainage. He has been compliant with tube feeds as well as wound care. Planning to start chemoradiation on 07/19/24 at [facility]. Initial HPI (06/23/24) History and review of systems is negative for changes since last visit except patient is postop. Heis doing well overall. His primary care doctor removed his Cervantes last Abdiaziz he has been voiding spontaneously without issues. Pain well controlled. Denies any fevers, chills, increased neck swellingor drainage. He has been compliant with tube feeds as well as wound care No past medical history on file. Past Surgical History: Procedure Laterality Date DISSECTION, RADICAL NECK, FREE FLAP N/A 06/10/2024 Procedure: PARTIAL GLOSSECTOMY, TRACHEOSTOMY, NECK DISSECTION; Surgeon: Clayton Villarreal MD; Location: PERIOPERATIVE SERVICES; Service: Otolaryngology DISSECTION, RADICAL NECK, MODIFIED N/A 06/10/2024 Procedure: LEFT RADIAL FOREARM FREE FLAP, SPLIT THICKNESS SKIN GRAFT FROM THIGH; Surgeon: Giorgio Mi MD; Location: PERIOPERATIVE SERVICES; Service: Otolaryngology ESOPHAGOSCOPY RIGID N/A 06/10/2024 Procedure: ESOPHAGOSCOPY RIGID; Surgeon: Giorgio Mi MD; Location: PERIOPERATIVE SERVICES; Service: Otolaryngology LARYNGOSCOPY N/A 06/10/2024 Procedure: LARYNGOSCOPY, DIRECT; Surgeon: Giorgio Mi MD; Location: PERIOPERATIVE SERVICES; Service: Otolaryngology Current Outpatient Medications Medication Sig Dispense Refill gabapentin (NEURONTIN) 100 MG capsule TAKE 1 CAPSULE 3 TIMES DAILY FOR 3 DAYS, THEN TAKE 2 CAPS 3 TIMES DAILY FOR 3 DAYS, THEN TAKE 3 CAPS 3 TIMES DAILY THEREAFTER. MAY CAUSE SLEEPINESS. CALL PCP TO REPORT EFFECTIVENESS chlorhexidine (PERIDEX) 0.12 % oral solution Swish 15 mL by mouth for 30 seconds then lightly spit out 2 times daily. Do not swallow. 473 mL 3 bacitracin 500 UNIT/GM OINT ointment Apply topically 3 times daily. Apply thin layer to incisions 28 g 1 doxazosin (CARDURA) 4 MG tablet 1 Tablet by NG Tube route daily. 30 Tablet 3 acetaminophen (TYLENOL) 160 MG/5ML oral solution 31.2 mL by NG Tube route every 6 hours as needed for Fever or Pain. 236 mL 1 aspirin 81 MG chewable tablet 1 Tablet by NG Tube route daily for 1 day. 1 Tablet 0 naloxone 4 mg/0.1 mL nasal liquid Use 1 Taylors in one nostril (alternate sides) as needed for Drug Overdose for up to 1 dose. Every 2-3 mins. until help arrives. 1 Each 1 ibuprofen (MOTRIN) 800 MG tablet Take 800 mg by mouth every 8 hours. metoprolol (LOPRESSOR) 25 MG tablet Take 25 mg by mouth 2 times a day. atorvastatin (LIPITOR) 80 mg tablet 80 mg every evening. busPIRone (BUSPAR) 10 MG tablet irbesartan (AVAPRO) 75 MG tablet every evening. latanoprost (XALATAN) 0.005 % ophthalmic solution INSTILL 1 DROP INTO EACH EYE AT BEDTIME No current facility-administered medications for this visit. No Known Allergies PHYSICAL EXAM: Pulse 55 Temp 97.1 F (36.2 C) (Temporal) Wt 226 lb 8 oz (102.7 kg) SpO2 98% BMI 35.47 kg/m Documented vital signs from today's visit reviewed. Physical exam including head and neck examination of the oral cavity, oropharynx, larynx, and hypopharynx including indirect mirror exam as well asinspection and palpation of the face, parotid and neck is remarkable for findings consistent with posttreatment postoperative changes and negative for new lesions, masses or lymphadenopathy. Intraoral RFFF well seated, warm with good cap refill, mild to moderate bulk but swelling continues to improve. Adequate speech (improved). Incisions intact with no evidence of intraoral dehiscence or purulence. Neck incision well healed, mild edema. Shoulder shrug intact and previous slight liberty weakness re solved. Trach site healing well and almost completely closed Left forearm donor site healing well. Incisions clean dry intact with no induration, erythema or purulence. Skin graft well healed IMAGING: CT neck w/ contrast (05/19/2024), personally reviewed IMPRESSION: Left oral tongue mass with metastatic adenopathy to left level III and level IV with suspecting extracapsular extension at level III. CT chest with contrast (05/19/2024), personally reviewed IMPRESSION: 1. No evidence of intrathoracic metastasis. Given the patient's history of primary oral cavity malignancy, recommend continued surveillance to document stability. PATHOLOGY: Final Diagnosis A. Anterior inferior mucosal margin, excision: Squamous mucosa, negative for malignancy. B. Tongue, left hemiglossectomy: INVASIVE, POORLY-DIFFERENTIATED SQUAMOUS CELL CARCINOMA (2.6 cm in greatest dimension, 11 mm depth of invasion), see synoptic checklist. Extensive lymphovascular and perineural invasion present, see immunohistochemistry. Deep muscular soft tissue margin of excision is focally positive for squamous cell carcinoma and shows multiple areas with intralymphatic tumor located less than 1 mm from this margin (re-excised in additional tumor bed margins in Parts F, G, and H). All other margins of excision, negative for malignancy. C. Lymph nodes, Level 1A, regional excision: Three lymph nodes, negative for malignancy (0/3). D. Lymph nodes, Left Level 1B, regional excision: Three lymph nodes, negative for malignancy (0/3). Salivary gland with no significant histopathologic change. E. Lymph nodes, Left Level 2, regional excision: One lymph node, negative for malignancy (0/1). Fragments of salivary gland with no significant histopathologic change. F. Floor of mouth, new margin, excision: Squamous mucosa with salivary gland tissue and skeletal muscle, negative for malignancy. G. Anterior floor of mouth/tongue, excision: Margin negative for invasive carcinoma, with close intralymphatic tumor (single minute focus of intralymphatic carcinoma present on permanent sections but not on frozen sections). H. Posterior floor of mouth/tongue, excision: Squamous mucosa, negative for malignancy. I. Lymph nodes, Levels 2-4, regional excision: METASTATIC CARCINOMA present in one of six Level 2 lymph nodes with extranodal extension (1/6). METASTATIC CARCINOMA present in one matted lymph node of three Level 3 lymph nodes with extranodal extension (1/3). Six Level 4 lymph nodes, negative for malignancy (0/6). J. Lymph nodes, Level 4, regional excision: One lymph node, negative for malignancy (0/1). K. Lymph nodes, Additional Level 3, regional excision: Venous thrombus; no lymph nodes identified; negative for malignancy. . I certify that I personally conducted the diagnostic evaluation of the above specimen(s) and have rendered the final diagnosis(es). at 1420 Clinical Information Optimal block B14 Synoptic Checklist ORAL CAVITY 8th Edition - Protocol posted: 09/28/2021IP AND ORAL CAVITY: INCISIONAL BX, EXCISIONAL BX, RESECTION - All Specimens SPECIMEN Procedure Glossectomy: Left hemiglossectomy Neck (lymph node) dissection: Left Neck, Levels 1 - 4 TUMOR Tumor Focality Unifocal Tumor Site Oral cavity Tumor Subsite Lateral border of tongue Tumor Laterality Left Tumor Size Greatest Dimension (Centimeters): 2.6 cm Additional Dimension (Centimeters) 2 cm 1.5 cm Histologic Type Squamous cell carcinoma, conventional Histologic Grade G3, poorly differentiated Tumor Depth of Invasion (DOI) 12 mm Lymphovascular Invasion Present Perineural Invasion Present MARGINS Specimen Margin Status for Invasive Tumor All specimen margins negative for invasive tumor Distance from Invasive Tumor to Closest Specimen Margin Greater than: 2 mm Closest Specimen Margin(s) to Invasive Tumor Lateral/floor of mouth and deep soft tissue Other Close Specimen Margin(s) to Invasive Tumor 4 mm medial (dorsal) Specimen Margin Status for Noninvasive Tumor All specimen margins negative for high-grade dysplasia/ in situ disease Distance from Noninvasive Tumor to Closest Specimen Margin Not identified Closest Specimen Margin(s) to Noninvasive Tumor Not identified Tumor Bed Margin Status Tumor Bed Margin Orientation Oriented to true margin surface Tumor Bed Margin Status for Invasive Tumor All tumor bed margins negative for invasive tumor REGIONAL LYMPH NODES Regional Lymph Node Status Tumor present in regional lymph node(s) Number of Lymph Nodes with Tumor 2 Laterality of Lymph Node(s) with Tumor Ipsilateral (including midline): Left neck, Levels 2 and 3 Size of Largest Ken Metastatic Deposit 1.2 cm Extranodal Extension (CHARLA) Present Distance of CHARLA from Lymph Node Capsule 1 mm Number of Lymph Nodes Examined 23 PATHOLOGIC STAGE CLASSIFICATION (pTNM, AJCC 8th Edition) Reporting of pT, pN, and (when applicable) pM categories is based on information available to the pathologist at the time the report is issued. As per the AJCC (Chapter 1, 8th Ed.) it is the managingphysician s responsibility to establish the final pathologic stage based upon all pertinent information, including but potentially not limited to this pathology report. pT Category pT3 pN Category pN3b ADDITIONAL FINDINGS Additional Findings None identified . Pathology was reviewed. 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 Final path with 2/23 nodes, PNI/LVI +, initial deep muscular soft tissue margin positive but re-resection at anterior floor of mouth Margin negative for invasive carcinoma, with close intralymphatic tumor (single minute focus of intralymphatic carcinoma present on permanent sections but not on frozen sections). Overall, NISHA, healing well. -Agree with plan for ASSIGNER; planning to start on 07/19/24 at [facility] -Discussed potential role for PEG tube and the associated risks and benefits; based on current swallow and OFFICE SYSTEM ANALYST eval and recommendations, counseled pt that would not strongly recommend PEG at this time but agree with Dr Connor that if he needs during treatment it could delay treatment. Pt stated that he is still undecided -continue to appreciate OFFICE SYSTEM ANALYST and nutrition recs -counseled patient that flap bulk we will continue to decrease in size as swelling improves and with radiation treatment -Will need annual TSH and low dose CT Chest in the future -Recommend follow up with Dr. Villarreal in 3 months after completion of ASSIGNER for routine surveillance Giorgio Mi MD Otolaryngology - Head and Neck Surgery [facility] Pager: [phone] * Wyatt Taylor MTA - 07/07/2024 8:34 AM EDT Patient identfied by name and date of Pharmacy updated Vital signs taken Patent in exam room ready for MD documented in this [id number] [phone] of referral for Adjuvant Med/Rad Onc treatments. They confirm receipt and will contact patient to schedule. Patrick Krishnamurthy RNThe [facility] [id number] Telephone encounter Note* Telephone Encounter - Patrick Krishnamurthy RN - 06/24/2024 1:17 PM EDT [facility] at [phone] to confirm their receipt of referral for Adjuvant Med/Rad Onc treatments. They confirm receipt and will contact patient to schedule. Patrick Krishnamurthy RN [facility] Work Phone: [phone]) 684-296809-12-2024 Miscellaneous Notes* Telephone Encounter - Patrick Krishnamurthy RN - 06/24/2024 1:17 PM EDT Reached [facility] at [phone] to confirm their receipt of referral for Adjuvant Med/Rad Onc treatments. They confirm receipt and will contact patient to schedule. Patrick Krishnamurhty RN documented in this [id number] History of Present illness Narrative* Giorgio Mi MD - 06/23/2024 11:16 PM EDT Images from the original note were not included. HPI: Quirino Cordero was seen 06/23/2024 in the [facility] for follow upvisit with hx of T3N3b left lateral tongue SCCa now s/p surgery with partial glossectomy, left neckdissection (Latrice) and left forearm free flap Tricia) on 06/10/24. Final path with 2/23 nodes, PNI/LVI +, initial deep muscular soft tissue margin positive but re-resection at anterior floor of mouth Margin negative for invasive carcinoma, with close intralymphatic tumor (single minute focus of intralymphatic carcinoma present on permanent sections but not on frozen sections). History and review of systems is negative for changes since last visit except patient is postop. Heis doing well overall. His primary care doctor removed his Cervantes last Abdiaziz he has been voiding spontaneously without issues. Pain well controlled. Denies any fevers, chills, increased neck swellingor drainage. He has been compliant with tube feeds as well as wound care No past medical history on file. Past Surgical History: Procedure Laterality Date DISSECTION, RADICAL NECK, FREE FLAP N/A 06/10/2024 Procedure: PARTIAL GLOSSECTOMY, TRACHEOSTOMY, NECK DISSECTION; Surgeon: Clayton Villarreal MD; Location: PERIOPERATIVE SERVICES; Service: Otolaryngology DISSECTION, RADICAL NECK, MODIFIED N/A 06/10/2024 Procedure: LEFT RADIAL FOREARM FREE FLAP, SPLIT THICKNESS SKIN GRAFT FROM THIGH; Surgeon: Giorgio Mi MD; Location: PERIOPERATIVE SERVICES; Service: Otolaryngology ESOPHAGOSCOPY RIGID N/A 06/10/2024 Procedure: ESOPHAGOSCOPY RIGID; Surgeon: Giorgio Mi MD; Location: PERIOPERATIVE SERVICES; Service: Otolaryngology LARYNGOSCOPY N/A 06/10/2024 Procedure: LARYNGOSCOPY, DIRECT; Surgeon: Giorgio Mi MD; Location: PERIOPERATIVE SERVICES; Service: Otolaryngology Current Outpatient Medications Medication Sig Dispense Refill chlorhexidine (PERIDEX) 0.12 % oral solution Swish 15 mL by mouth for 30 seconds then lightly spit out 2 times daily. Do not swallow. 473 mL 3 docusate (COLACE) 50 MG/5ML oral liquid 10 mL by NG Tube route daily. 120 mL 0 bacitracin 500 UNIT/GM OINT ointment Apply topically 3 times daily. Apply thin layer to incisions 28 g 1 oxyCODONE 5 MG immediate release tablet 2 Tablets by NG Tube route every 6 hours as needed for Painfor up to 7 days. 28 Tablet 0 polyethylene glycol (MiraLax) packet Dissolve 1 Packet (17 g total) in 8 ounces of liquid and drinkdaily. 10 Packet 3 doxazosin (CARDURA) 4 MG tablet 1 Tablet by NG Tube route daily. 30 Tablet 3 acetaminophen (TYLENOL) 160 MG/5ML oral solution 31.2 mL by NG Tube route every 6 hours as needed for Fever or Pain. 236 mL 1 aspirin 81 MG chewable tablet 1 Tablet by NG Tube route daily for 1 day. 1 Tablet 0 naloxone 4 mg/0.1 mL nasal liquid Use 1 Taylors in one nostril (alternate sides) as needed for Drug Overdose for up to 1 dose. Every 2-3 mins. until help arrives. 1 Each 1 ALPRAZolam (XANAX) 0.5 MG tablet TAKE 1 TABLET BY MOUTH AT BEDTIME IF NEEDED TO SLEEP WHILE TAKING STEROID ibuprofen (MOTRIN) 800 MG tablet Take 800 mg by mouth every 8 hours. sildenafil citrate (VIAGRA) 100 MG tablet metoprolol (LOPRESSOR) 25 MG tablet Take 25 mg by mouth 2 times a day. atorvastatin (LIPITOR) 80 mg tablet 80 mg every evening. busPIRone (BUSPAR) 10 MG tablet irbesartan (AVAPRO) 75 MG tablet every evening. latanoprost (XALATAN) 0.005 % ophthalmic solution INSTILL 1 DROP INTO EACH EYE AT BEDTIME No current facility-administered medications for this visit. No Known Allergies PHYSICAL EXAM: There were no vitals taken for this visit. Documented vital signs from today's visit reviewed. Physical exam including head and neck examination of the oral cavity, oropharynx, larynx, and hypopharynx including indirect mirror exam as well asinspection and palpation of the face, parotid and neck is remarkable for findings consistent with posttreatment postoperative changes and negative for new lesions, masses or lymphadenopathy. Intraoral RFFF well seated, warm with good cap refill, mild to moderate bulk but swelling significantly improved. Adequate speech. Incisions intact with no evidence of intraoral dehiscence or purulence. Neck incision healing well. Incisions clean, dry and intact mild expected edema. No purulence, dehiscence, or fluctuance appreciated on exam. Shoulder shrug intact and slight liberty weakness but significantly improved. Trach site healing well and almost completely closed Left forearm donor site healing well. Incisions clean dry intact with no induration, erythema or purulence. Approximately 95 % skin graft take, small serous fluid decompressed. IMAGING: CT neck w/ contrast (05/19/2024), personally reviewed IMPRESSION: Left oral tongue mass with metastatic adenopathy to left level III and level IV with suspecting extracapsular extension at level III. CT chest with contrast (05/19/2024), personally reviewed IMPRESSION: 1. No evidence of intrathoracic metastasis. Given the patient's history of primary oral cavity malignancy, recommend continued surveillance to document stability. PATHOLOGY: Final Diagnosis A. Anterior inferior mucosal margin, excision: Squamous mucosa, negative for malignancy. B. Tongue, left hemiglossectomy: INVASIVE, POORLY-DIFFERENTIATED SQUAMOUS CELL CARCINOMA (2.6 cm in greatest dimension, 11 mm depth of invasion), see synoptic checklist. Extensive lymphovascular and perineural invasion present, see immunohistochemistry. Deep muscular soft tissue margin of excision is focally positive for squamous cell carcinoma and shows multiple areas with intralymphatic tumor located less than 1 mm from this margin (re-excised in additional tumor bed margins in Parts F, G, and H). All other margins of excision, negative for malignancy. C. Lymph nodes, Level 1A, regional excision: Three lymph nodes, negative for malignancy (0/3). D. Lymph nodes, Left Level 1B, regional excision: Three lymph nodes, negative for malignancy (0/3). Salivary gland with no significant histopathologic change. E. Lymph nodes, Left Level 2, regional excision: One lymph node, negative for malignancy (0/1). Fragments of salivary gland with no significant histopathologic change. F. Floor of mouth, new margin, excision: Squamous mucosa with salivary gland tissue and skeletal muscle, negative for malignancy. G. Anterior floor of mouth/tongue, excision: Margin negative for invasive carcinoma, with close intralymphatic tumor (single minute focus of intralymphatic carcinoma present on permanent sections but not on frozen sections). H. Posterior floor of mouth/tongue, excision: Squamous mucosa, negative for malignancy. I. Lymph nodes, Levels 2-4, regional excision: METASTATIC CARCINOMA present in one of six Level 2 lymph nodes with extranodal extension (1/6). METASTATIC CARCINOMA present in one matted lymph node of three Level 3 lymph nodes with extranodal extension (1/3). Six Level 4 lymph nodes, negative for malignancy (0/6). J. Lymph nodes, Level 4, regional excision: One lymph node, negative for malignancy (0/1). K. Lymph nodes, Additional Level 3, regional excision: Venous thrombus; no lymph nodes identified; negative for malignancy. . I certify that I personally conducted the diagnostic evaluation of the above specimen(s) and have rendered the final diagnosis(es). at 1420 Clinical Information Optimal block B14 Synoptic Checklist ORAL CAVITY 8th Edition - Protocol posted: 09/28/2021IP AND ORAL CAVITY: INCISIONAL BX, EXCISIONAL BX, RESECTION - All Specimens SPECIMEN Procedure Glossectomy: Left hemiglossectomy Neck (lymph node) dissection: Left Neck, Levels 1 - 4 TUMOR Tumor Focality Unifocal Tumor Site Oral cavity Tumor Subsite Lateral border of tongue Tumor Laterality Left Tumor Size Greatest Dimension (Centimeters): 2.6 cm Additional Dimension (Centimeters) 2 cm 1.5 cm Histologic Type Squamous cell carcinoma, conventional Histologic Grade G3, poorly differentiated Tumor Depth of Invasion (DOI) 12 mm Lymphovascular Invasion Present Perineural Invasion Present MARGINS Specimen Margin Status for Invasive Tumor All specimen margins negative for invasive tumor Distance from Invasive Tumor to Closest Specimen Margin Greater than: 2 mm Closest Specimen Margin(s) to Invasive Tumor Lateral/floor of mouth and deep soft tissue Other Close Specimen Margin(s) to Invasive Tumor 4 mm medial (dorsal) Specimen Margin Status for Noninvasive Tumor All specimen margins negative for high-grade dysplasia/ in situ disease Distance from Noninvasive Tumor to Closest Specimen Margin Not identified Closest Specimen Margin(s) to Noninvasive Tumor Not identified Tumor Bed Margin Status Tumor Bed Margin Orientation Oriented to true margin surface Tumor Bed Margin Status for Invasive Tumor All tumor bed margins negative for invasive tumor REGIONAL LYMPH NODES Regional Lymph Node Status Tumor present in regional lymph node(s) Number of Lymph Nodes with Tumor 2 Laterality of Lymph Node(s) with Tumor Ipsilateral (including midline): Left neck, Levels 2 and 3 Size of Largest Ken Metastatic Deposit 1.2 cm Extranodal Extension (CHARLA) Present Distance of CHARLA from Lymph Node Capsule 1 mm Number of Lymph Nodes Examined 23 PATHOLOGIC STAGE CLASSIFICATION (pTNM, AJCC 8th Edition) Reporting of pT, pN, and (when applicable) pM categories is based on information available to the pathologist at the time the report is issued. As per the AJCC (Chapter 1, 8th Ed.) it is the managingphysician s responsibility to establish the final pathologic stage based upon all pertinent information, including but potentially not limited to this pathology report. pT Category pT3 pN Category pN3b ADDITIONAL FINDINGS Additional Findings None identified . Pathology was reviewed. 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 Final path with 2/23 nodes, PNI/LVI +, initial deep muscular soft tissue margin positive but re-resection at anterior floor of mouth Margin negative for invasive carcinoma, with close intralymphatic tumor (single minute focus of intralymphatic carcinoma present on permanent sections but not on frozen sections). Overall, NISHA, healing well. Dobbhoff feeding tube removed today -we reviewed the pathology results at length today -his case was recently discussed at our multidisciplinary head & neck tumor board Conference and consensus recommendation was for adjuvant chemo radiation therapy given pathologic findings. Discussed his case with Dr. Cain Connor (Rad Onc) and external referrals placed today as patient would prefer to get treated closer to home your [facility] -okay to start soft oral diet -continue to appreciate OFFICE SYSTEM ANALYST and nutrition recs -continue to apply Vaseline/Aquaphor to neck and arm incisions -recommend Xeroform to left forearm BID and leave open to air for at least couple hours each day; continued to use OT splint for the next week -counseled patient that flap bulk we will continue to decrease in size as swelling improves and with radiation treatment -Will need annual TSH and low dose CT Chest in the future -Recommend close follow up with me in 2 weeks or sooner prcorazon Mi MD Otolaryngology - Head and Neck Surgery [facility] Pager: [phone] * Sierra Busby RN - 06/23/2024 6:06 PM EDT Speech Therapy External service request provided to pt. Pt has contact information for Duyen Moore at [facility]. Referral and Speech note emailed to [email or web address]. * Mckenzie Dcaya - 06/23/2024 1:03 PM EDT Patient was identified by name and date of . Karen Dao Patient in exam room, vital signs taken, ready for MD exam. documented in this [id number] NoteSpeech Therapy External service request provided to pt. Pt has contact information for Duyen Moore at [facility]. Referral and Speech note emailed to [email or web address].[employer] 06-23-2024 History of Present illness Narrative* Duyen Enciso RD - 06/23/2024 3:00 PM EDT Images from the original note were not included. Documentation: Mode: In Person ADULT NUTRITION FOLLOW-UP Reason for Referral: Squamous Cell Carcinoma of Oral Cavity Referring Provider: Dr. Mi Chief Complaint: I'm feeling better Previous Goals Set/Progress 1. Goal to eat 6-8 small/frequent meals, eating every 2-3 hours, regardless of hunger queues 2. Include a protein source with all meals/snacks, goal for 100 grams/d 3. Okay to use protein shakes as snacks to help meet protein goals Assessment: Quirino Cordero is a 74 year old male No past medical history on file. Past Surgical History: Procedure Laterality Date DISSECTION, RADICAL NECK, FREE FLAP N/A 06/10/2024 Procedure: PARTIAL GLOSSECTOMY, TRACHEOSTOMY, NECK DISSECTION; Surgeon: Clayton Villarreal MD; Location: PERIOPERATIVE SERVICES; Service: Otolaryngology DISSECTION, RADICAL NECK, MODIFIED N/A 06/10/2024 Procedure: LEFT RADIAL FOREARM FREE FLAP, SPLIT THICKNESS SKIN GRAFT FROM THIGH; Surgeon: Giorgio Mi MD; Location: PERIOPERATIVE SERVICES; Service: Otolaryngology ESOPHAGOSCOPY RIGID N/A 06/10/2024 Procedure: ESOPHAGOSCOPY RIGID; Surgeon: Giorgio Mi MD; Location: PERIOPERATIVE SERVICES; Service: Otolaryngology LARYNGOSCOPY N/A 06/10/2024 Procedure: LARYNGOSCOPY, DIRECT; Surgeon: Giorgio Mi MD; Location: PERIOPERATIVE SERVICES; Service: Otolaryngology has No Known Allergies. Medication: Current Outpatient Medications: chlorhexidine (PERIDEX) 0.12 % oral solution, Swish 15 mL by mouth for 30 seconds then lightly spitout 2 times daily. Do not swallow., Disp: 473 mL, Rfl: 3 docusate (COLACE) 50 MG/5ML oral liquid, 10 mL by NG Tube route daily., Disp: 120 mL, Rfl: 0 bacitracin 500 UNIT/GM OINT ointment, Apply topically 3 times daily. Apply thin layer to incisions,Disp: 28 g, Rfl: 1 oxyCODONE 5 MG immediate release tablet, 2 Tablets by NG Tube route every 6 hours as needed for Pain for up to 7 days., Disp: 28 Tablet, Rfl: 0 polyethylene glycol (MiraLax) packet, Dissolve 1 Packet (17 g total) in 8 ounces of liquid and drink daily., Disp: 10 Packet, Rfl: 3 doxazosin (CARDURA) 4 MG tablet, 1 Tablet by NG Tube route daily., Disp: 30 Tablet, Rfl: 3 acetaminophen (TYLENOL) 160 MG/5ML oral solution, 31.2 mL by NG Tube route every 6 hours as needed for Fever or Pain., Disp: 236 mL, Rfl: 1 aspirin 81 MG chewable tablet, 1 Tablet by NG Tube route daily for 1 day., Disp: 1 Tablet, Rfl: 0 naloxone 4 mg/0.1 mL nasal liquid, Use 1 Taylors in one nostril (alternate sides) as needed for Drug Overdose for up to 1 dose. Every 2-3 mins. until help arrives., Disp: 1 Each, Rfl: 1 ALPRAZolam (XANAX) 0.5 MG tablet, TAKE 1 TABLET BY MOUTH AT BEDTIME IF NEEDED TO SLEEP WHILE TAKINGSTEROID, Disp: , Rfl: ibuprofen (MOTRIN) 800 MG tablet, Take 800 mg by mouth every 8 hours., Disp: , Rfl: sildenafil citrate (VIAGRA) 100 MG tablet, , Disp: , Rfl: metoprolol (LOPRESSOR) 25 MG tablet, Take 25 mg by mouth 2 times a day., Disp: , Rfl: atorvastatin (LIPITOR) 80 mg tablet, 80 mg every evening., Disp: , Rfl: busPIRone (BUSPAR) 10 MG tablet, , Disp: , Rfl: irbesartan (AVAPRO) 75 MG tablet, every evening., Disp: , Rfl: latanoprost (XALATAN) 0.005 % ophthalmic solution, INSTILL 1 DROP INTO EACH EYE AT BEDTIME, Disp: ,Rfl: Vitamins/Minerals: Vitamin D3 Biochemical Data/Medical testing/Procedures: No results found for: HBA1C Lipids (last 3 years, up to 8 values) No lab values to display. BMP (last 3 years, up to 8 values) 06/16/2024 06/15/2024 06/14/2024 06/13/2024 06/12/2024 06/11/2024 06/10/2024 06/10/2024 1:05 AM 3:58 AM 5:04 AM 5:52 AM 4:29 AM 5:31 AM 8:21 PM 1:48 PM Na 140 141 137 138 139 139 141 141 K 4.2 4.6 4.1 4.3 4.1 4.1 4.6 3.9 Cl 109 108 104 109 107 107 107 110 CO2 24 23 24 21 26 25 25 -- Gap 11 15 13 12 10 11 14 -- Glu 98 104 108 110 121 148 149 143 BUN 32 30 18 16 20 25 24 -- Cr 0.81 0.99 0.85 0.69 0.83 1.10 1.22 -- Ca 8.6 8.6 8.8 7.1 8.1 8.9 9.1 -- eGFR 92 79 91 97 91 70 62 -- CBC (last 3 years, up to 8 values) 06/16/2024 06/15/2024 06/14/2024 06/13/2024 06/12/2024 06/11/2024 06/10/2024 06/10/2024 1:05 AM 2:53 AM 5:04 AM 5:31 AM 4:29 AM 4:42 AM 8:04 PM 1:48 PM WBC 7.4 6.8 8.6 7.5 9.3 9.8 10.4 -- RBC 3.96 4.34 4.46 3.72 4.00 3.97 4.42 -- Hgb 12.1 13.0 13.6 11.5 12.4 12.2 13.3 12.7 Hct 36.5 39.9 40.8 34.5 36.9 36.6 40.6 39.0 MCV 92 92 92 93 92 92 92 -- RDW 15.2 15.1 14.6 15.1 14.8 15.1 14.9 -- Plt 216 193 190 169 162 173 160 -- LFT's (last 3 years, up to 8 values) No lab values to display. Anthropometric Measurements: Weight: 218.8# Height: 67 BMI: 34.3 UBW: 220-240# Adj BW: 166# BP Readings from Last 1 Encounters: 06/16/24 120/62 Weight Change Since Last Visit: -17.4# Weight history: Wt Readings from Last 10 Encounters: 06/10/24 232 lb (105.2 kg) 05/26/24 232 lb 1.6 oz (105.3 kg) 05/26/24 232 lb (105.2 kg) 05/11/24 236 lb 1.6 oz (107.1 kg) Significant wt loss of 5.7% x2 weeks and 5.8% x1 month Food/Nutrition-Related History: Appetite: good Supplements: none Enteral order: 1.5 cartons Boost VHC BID (8A; 12P); 1 carton Boost VHC BID (4P; 8P) Water flushes: 150 mL H20 before/after q bolus Provides: 1185 mL, 2650 kcal, 110 g pro, 795 mL H20, 1200 mL H20 flush, 1995 mL total free water Route: NG DME: [facility]/[place] Last Delivered: 06/2024 Last Ordered: 06/2024 GI Sx: None Urine: Yellow Dentition: Dentures - ill-fitting, wears top plate while eating Allergies/Intolerance: None 24 Hour Recall: B: none Snack: none L: none Snack: none D: none Snack: none Beverages: none Nutrition Focused Physical Exam: Muscle loss: Confucianism region: well defined Clavicle region: not visible/not prominent Scapula region: no depressions Hand: muscle bulges Anterior thigh: well rounded Posterior calf: well developed Fat loss: Orbital region: bulged fat pads Tricep/bicep region: ample fat tissue Rib/back region: chest full/ribs do not show Edema: none Estimated Needs: 7378-4970 kcal/d 30-35 kcal/kg Adj BW 98-113 g pro/d 1.3-1.5 g pro/kg Adj BW 7656-7707 mL/d fluid Assessment for Malnutrition: Other, Severe Protein Calorie Malnutrition: Acute Injury/Illness Weight loss (unintentional): >2%/2 weeks Weight loss (unintentional): >5%/1 month 74 y/o M with PMHx of HTN and former smoker. Diagnosed with SCCa of the L tongue, T2N0Mx. Now s/p resection of L tongue SCCa, L neck dissection, and reconstruction with L radial forearm free tissue transfer and tracheostomy on 06/10. Plan to start adjuvant chemotherapy. Pt reports that he has been feeling well. Relieved to have NG removed and looking forward to drinking liquids again. Cleared to start PO diet, choosing soft and easy to chew/swallowing foods. States they have been administering 4 cartons Boost VHC each day, noted order set for 5 cartons Boost VHC daily. Expresses fullness after tube feed bolus'. Denies any pain, only taking Tylenol. Re-educated pt on importance of including protein with all meals and snacks, choosing soft/easy to chew and swallow foods, using condiments/sauces/gravies to soften foods, keep a beverage with you at all times, and using Boost VHC as snacks between meals. Noted significant wt loss x2 weeks and x1 month, presentin g as severely malnourished. All written materials provided. Continue to follow. Nutrition Diagnosis: 1. Unintended weight loss r/t physiological causes increasing nutrient needs AEB weight loss of >5% within 30 days, >7.5% in 90 days, or >10% in 180 days (adults) Nutrition Interventions: Inital/brief nutrition education (E1) Soft and Moist, High-Protein Menu Ideas Monitoring/Goals: 1. Aim to eat 6-8 small/frequent soft and easy to chew/swallow foods, eating every 2-3 hours 2. Include a protein source with all meals/snacks 3. Keep a beverage with you at all times, sipping liquids throughout the day 4. Okay to drink Boost [facility] PO between meals to help meet needs Evaluation: Patient/Warp Tying Machine Knotter verbalized understanding: Yes The patient appears to have good understanding of the instruction given. Referrals: None Total time spent with patient-15 minutes, of which 15 minutes was spent counseling. MNT Time: 1 unit Visit Time: 2 of 3 approved visits MARISA Womack, NATHEN, LD Pager [phone] documented in this [id number] NoteSPEECH LANGUAGE PATHOLOGY OUTPATIENT SWALLOW EVALUATION Location: [facility] Patient identified by patient stating name and date of . Time In: 2:15pm Time Out: 3pm Duration: 50 mins Session #: 11/22 Payor: MEDICARE / Plan: MEDICARE PART A AND B / Product Type: Medicare Referring Provider: Giorgio Mi MD/ENT Date of Onset: referred 05/11/2024 Speech Medical History: Patient referred for speech therapy evaluation given newly diagnosed head and neck cancer. Referred by Bartolo Child MD ([place]) for T2N0Mx SCCa of the left tongue, 3 cm x 2 cm left lateral tongue Treatment plan: surgery on 06/10/2024, partial glossectomy with forearm free flap, possible adjuvant chemoradiation Prior Level of Functioning: Patient lives with his . Patient is not currently working. 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 Patient's hearing, vision, and ambulation are unaided. Pt reports hearing concerns, but does not wish to have them addressed at this time. SUBJECTIVE: Patient subjective/goals: Pt arrives on time with and daughter, who remain throughout. Pain: None reported OBJECTIVE: SWALLOWING PATIENT REPORT Pt reports difficulty with harder solids, and needing to chew only on his left side. He reports no pain with swallow. General Daily Intake Current Diet: Patient consuming meals via PEG tube Cranial Nerve Quick Assessment: CN V - Trigeminal; Motor: Asymmetry on left side of mouth present when opened. (open/close mouth; open against resisted hand; move jaw side to side) CN V - Trigeminal; Sensory: WNL (Facial sensation: close your eyes and tell me where I am touching you: forehead, cheek, jaw) CN VII - Facial; Motor: WNL (forehead wrinkling, smile) CN VII - Facial; Sensory: WNL (2/3 front of tongue taste- sweet, sour, salty) CN IX - Glossopharyngeal; Sensory: WNL (1/3 back of tongue taste- sweet, sour, salty) CN IX - Glossopharyngeal AND CN X - Vagus; Motor: WNL (palate elevation with ahh) CN XI - Spinal Accessory; Motor: WNL (shoulder shrug) CN XII - Hypoglossal; Motor: hooks to pt's left (tongue ROM) [place] Swallow Protocol: State: Awake, alert, participatory Brief Cognitive Screen: What is your Name?: + Where are you right now?: + What year is it?: + Oral Mechanism Assessment: Tongue ROM: Airway Heights to left Facial Symmetry: Intact Smile: Intact Pucker: Intact Lip Closure (cheek puff and hold): Intact Dentition: has dentures, fit on top, but not on bottom 3-ounce water swallow challenge: Positioning: Upright Mode of administration: Cup Consecutive drinking of 3oz Thin water: Achieved, uninterrupted Cough/Throat Clear: None X PASS: Complete and uninterrupted drinking of all 3 ounces (90cc) of water without overt signs of aspiration (I.e. coughing or choking, either during or immediate after completion) *The [place] Swallow Protocol (YSP) is a standardized measure with high sensitivity(96.5%) and negative prediction value (97.9%). Other Consistencies Presented: Thin Liquids: water Pureed Solids: applesauce Oral Phase: Adequate bilabial seal w/out anterior spillage Mastication appears slightly labored, but adequate No residue present Pharyngeal Phase: No overt signs and symptoms of airway invasion with oral intake in any of trials. Diet Recommendation: Pureed Liquids and Minced Moist solids Strategies: Chew on right side only for comfort PERCEPTUAL OBSERVATIONS (CAPE-V, Consensus Auditory-Perceptual Evaluation of Voice) Rated by clinician following sustained /ah/ and /ee/, reading of short sentences, and conversation. Aspect of voice WNL; mild, mod, severe deviance Consistent/Inconsistent Comments Overall severity WNL consistent Roughness WNL consistent Breathiness WNL consistent Strain WNL consistent Pitch WNL consistent Loudness WNL consistent Nasality WNL consistent Additional features (diplophonia, gauthier, falsetto, asthenia, pitch instability, tremor, wet/gurgly, prosody, other) Speech Respiration: WNL Phonation: WNL Articulation: Limited due to tongue RoM Resonance: WNL Intelligibility: 60-70% ASSESSMENT: Diagnosis: mild oral phase dysphagia, anticipated oropharyngeal dysphagia and dysarthria Impression: Quirino Rodríguez is a 74 year old adult who presents for a follow-up speech therapy evaluation today with emphasis on dysphagia. Patient has a recent diagnosis of tongue cancer and underwent partial glossectomy with free flap reconstruction, and plans on receiving services for radiology and speech therapy in [place]. At this time, patient presents characteristics of mild oral phase dysphagia. Dysphagia is characterized by limited movement and sensation of 1/2 vertical left side of tongue. Instrumental evaluation of swallowing is not warranted at this time given otherwise normal swallow skills. Recommend diet of pureed liquids and minced AND moist solids, given that pt is not cleared for dentu (more content not included)...[employer] [id number] History of Present illness Narrative* Bossman Jeronimo, [facility]-OFFICE SYSTEM ANALYST - 06/23/2024 2:36 PM EDT SPEECH LANGUAGE PATHOLOGY OUTPATIENT SWALLOW EVALUATION Location: [facility] Patient identified by patient stating name and date of . Time In: 2:15pm Time Out: 3pm Duration: 50 mins Session #: 11/22 Payor: MEDICARE / Plan: MEDICARE PART A & B / Product Type: Medicare Referring Provider: Giorgio Mi MD/ENT Date of Onset: referred 05/11/2024 Speech Medical History: Patient referred for speech therapy evaluation given newly diagnosed head and neck cancer. Referred by Bartolo Child MD ([place]) for [id number] SCCa of the left tongue, 3 cm x 2 cm left lateraltongue Treatment plan: surgery on 06/10/2024, partial glossectomy with forearm free flap, possible adjuvantchemoradiation Prior Level of Functioning: Patient lives with his . Patient is not currently working. 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 Patient's hearing, vision, and ambulation are unaided. Pt reports hearing concerns, but does not wish to have them addressed at this time. SUBJECTIVE: Patient subjective/goals: Pt arrives on time with and daughter, who remain throughout. Pain: None reported OBJECTIVE: SWALLOWING PATIENT REPORT Pt reports difficulty with harder solids, and needing to chew only on his left side. He reports no pain with swallow. General Daily Intake Current Diet: Patient consuming meals via PEG tube Cranial Nerve Quick Assessment: CN V - Trigeminal; Motor: Asymmetry on left side of mouth present when opened. (open/close mouth; open against resisted hand; move jaw side to side) CN V - Trigeminal; Sensory: WNL (Facial sensation: close your eyes and tell me where I am touching you: forehead, cheek, jaw) CN VII - Facial; Motor: WNL (forehead wrinkling, smile) CN VII - Facial; Sensory: WNL (2/3 front of tongue taste- sweet, sour, salty) CN IX - Glossopharyngeal; Sensory: WNL (1/3 back of tongue taste- sweet, sour, salty) CN IX - Glossopharyngeal & CN X - Vagus; Motor: WNL (palate elevation with ahh) CN XI - Spinal Accessory; Motor: WNL (shoulder shrug) CN XII - Hypoglossal; Motor: hooks to pt's left (tongue ROM) [place] Swallow Protocol: State: Awake, alert, participatory Brief Cognitive Screen: What is your Name?: + Where are you right now?: + What year is it?: + Oral Mechanism Assessment: Tongue ROM: Airway Heights to left Facial Symmetry: Intact Smile: Intact Pucker: Intact Lip Closure (cheek puff and hold): Intact Dentition: has dentures, fit on top, but not on bottom 3-ounce water swallow challenge: Positioning: Upright Mode of administration: Cup Consecutive drinking of 3oz Thin water: Achieved, uninterrupted Cough/Throat Clear: None X PASS: Complete and uninterrupted drinking of all 3 ounces (90cc) of water without overt signs of aspiration (I.e. coughing or choking, either during or immediate after completion) *The [place] Swallow Protocol (YSP) is a standardized measure with high sensitivity(96.5%) and negative prediction value (97.9%). Other Consistencies Presented: Thin Liquids: water Pureed Solids: applesauce Oral Phase: Adequate bilabial seal w/out anterior spillage Mastication appears slightly labored, but adequate No residue present Pharyngeal Phase: No overt signs and symptoms of airway invasion with oral intake in any of trials. Diet Recommendation: Pureed Liquids and Minced Moist solids Strategies: Chew on right side only for comfort PERCEPTUAL OBSERVATIONS (CAPE-V, Consensus Auditory-Perceptual Evaluation of Voice) Rated by clinician following sustained /ah/ and /ee/, reading of short sentences, and conversation. Aspect of voice WNL; mild, mod, severe deviance Consistent/Inconsistent Comments Overall severity WNL consistent Roughness WNL consistent Breathiness WNL consistent Strain WNL consistent Pitch WNL consistent Loudness WNL consistent Nasality WNL consistent Additional features (diplophonia, gauthier, falsetto, asthenia, pitch instability, tremor, wet/gurgly, prosody, other) Speech Respiration: WNL Phonation: WNL Articulation: Limited due to tongue RoM Resonance: WNL Intelligibility: 60-70% ASSESSMENT: Diagnosis: mild oral phase dysphagia, anticipated oropharyngeal dysphagia and dysarthria Impression: Quirino Rodríguez is a 74 year old adult who presents for a follow-up speech therapy evaluation today with emphasis on dysphagia. Patient has a recent diagnosis of tongue cancer and underwent partial glossectomy with free flap reconstruction, and plans on receiving services for radiology and speech therapy in [place]. At this time, patient presents characteristics of mild oral phase dysphagia. Dysphagia is characterized by limited movement and sensation of 1/2 vertical left side of tongue. Instrumental evaluation of swallowing is not warranted at this time given otherwise normal swallow skills. Recommend diet of pureed liquids and minced & moist solids, given that pt is not cleared for dentures at this time. Articulation of speech have been impacted post-surgery due to limited movement and sensation of tongue. Educated patient on diet recommendation, swallow strategies, anticipated decline in dysphagia, and prophylactic swallow exercises. The patient appears to be receptive to speech therapy post-surgery, and was educated on possible symptoms of radiation associated dysphagia as treatment progresses. Pt lives in [place] and would like to see an OFFICE SYSTEM ANALYST closer to home following surgery. Recommendations of possible speech therapist was given for post-surgery therapy. PLAN: Treatment Modalities: swallowing, speech/dysarthria Frequency of Visits: 2x/month Duration: 3-6 months, may transfer to OFFICE SYSTEM ANALYST closer to home Final Inspection Supervisor Goals: 1. Patient will tolerate a PO diet without pulmonary compromise. Short Term Goals: Patient will complete [id number] of effortful swallows to optimize oropharyngeal pressure in anticipation of dysphagia. Patient will complete lingual press for 10 seconds [id number] to optimize tongue and palate seal in anticipation of dysphagia. Patient will complete pharyngocise exercises (falsetto, tongue press, effortful swallow, jaw opening against resistance) to proactively manage anticipated radiation associated dysphagia 10x each, 4x/day. Patient will complete jaw opening against resistance for 30 seconds 10x to optimize mandibular opening in anticipation of trismus. Patient will implement compensatory strategies given written and verbal education to manage radiation associated dysphagia (odynophagia, xerostomia, dysgeusia, fatigue, aspiration risk) in order to tolerate PO intake without >2 week NPO status and optimize long-term swallow function. Patient will participate in further voice, trismus, and/or lymphedema evaluation as deemed clinically appropriate by the treating clinician. Prognosis: Good given + support, + skilled intervention, + medical history Scheduled follow-up with ENT at [facility] and will follow up with OFFICE SYSTEM ANALYST in [place]. HOME PROGRAM/EDUCATION: Diet Recommendation: Pureed Liquids and Minced & Moist Solids Exercises: Pharyngocise: Do the exercises indicated with checkmarks below 10 times each, 4 times daily. ?Falsetto: [place] up in pitch to reach a high, squeaky voice, then hold it for several seconds with effort. ?Tongue press: Push your tongue against the roof of your mouth as hard as you can for 5 seconds. ?Effortful hard swallow: Pretend you have a golf ball stuck in your throat. Swallow as hard as you can by squeezing your tongue and throat as you swallow. ?Jaw resistance and strengthening with jaw mobility device (TheraBite or OraStretch) or manually: 1.) Push down on your chin with the middle part between your index finger and thumb and use your jaw strength to close your jaw against the resistance of your hand. 2.) Using the palm of your hand, push upward on your chin and use your jaw strength to open your mouth against the resistance of your hand. Vicente Dow Facilities Management Executive Clinician I was present during the entire speech therapy session with Quirino Cordero. I directly supervised Vicente Dow and assisted her with the assessment, treatment, documentation and billing for this visit. I agree with her clinical decision making and have discussed the case with her. JEYSON Toscano, MA, CCC-OFFICE SYSTEM ANALYST Speech-Language Pathologist documented in this [id number] Telephone encounter Note* Telephone Encounter - Patrick Krishnamurthy RN - 06/21/2024 8:41 AM EDT Checked in with Gianna, patient's , who states that patient was able to urinate Friday and has been okay ever since. No need for replacement of catheter or urology appointment. Patrick Krishnamurthy RN [employer] Work Phone: [phone] Miscellaneous Notes* Telephone Encounter - Patrick Krishnamurthy RN - 06/21/2024 8:41 AM EDT Checked in with Gianna, patient's , who states that patient was able to urinate Friday and has been okay ever since. No need for replacement of catheter or urology appointment. Patrick Krishnamurthy RN * Telephone Encounter - Patrick Krishnamurthy RN - 06/18/2024 4:07 PM EDT Reached patient's , Gianna, who states that wound care is going well, they feel that they are doing great and do not require home care at this time. She does state, however, that her family doctorremoved patients urinary catheter, which was in place after surgery due to inability to urinate. They were instructed that if patient cannot urinate by 6pm today he needs to go to the emergency department. She is asking if this is correct. Advised that unfortunately he will need to seek emergency care if this happens since it is a Friday evening. She acknowledges understanding and will let us know if she needs anything else. Dr Mi notified of situation as well. Patrick Krishnamurthy RN documented in this [id number] Telephone encounter Note* Telephone Encounter - Patrick Krishnamurthy RN - 06/18/2024 4:07 PM EDT Reached patient's , Gianna, who states that wound care is going well, they feel that they are doing great and do not require home care at this time. She does state, however, that her family doctorremoved patients urinary catheter, which was in place after surgery due to inability to urinate. They were instructed that if patient cannot urinate by 6pm today he needs to go to the emergency department. She is asking if this is correct. Advised that unfortunately he will need to seek emergency care if this happens since it is a Friday evening. She acknowledges understanding and will let us know if she needs anything else. Dr Mi notified of situation as well. Patrick Krishnamurthy RN [facility] Work Phone: [phone] Miscellaneous Notes* Telephone Encounter - Patrick Krishnamurthy RN - 06/18/2024 4:07 PM EDT Reached patient's , Gianna, who states that wound care is going well, they feel that they are doing great and do not require home care at this time. She does state, however, that her family doctorremoved patients urinary catheter, which was in place after surgery due to inability to urinate. They were instructed that if patient cannot urinate by 6pm today he needs to go to the emergency department. She is asking if this is correct. Advised that unfortunately he will need to seek emergency care if this happens since it is a Friday evening. She acknowledges understanding and will let us know if she needs anything else. Dr Mi notified of situation as well. Patrick Krishnamurthy RN documented in this [id number] NoteTransitions of Care Follow Up Call Initial communication post- discharge: 1st attempt: 06/17/24 [x] Text sent Yes 2nd attempt: 06/17/24 Sources of Information: [x]Patient, family member or doggy daycare activities director: Gianna Monique ( and caregiver) [x] Hospital Discharge/CDU Summary reviewed: [] Hospital fax received from: [] List of recent hospitalizations or ED visits reviewed : [] Patient/Caregiver decline Follow Up Call [] CarePort: []Other: Date of Admission: 06/10/2024 Date of Discharge: 06/16/2024 Hospital Discharge diagnosis: 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 Patient daughter is nursing director able to assist with equipment and dressing changes. organizes medications and administers tube feedings. Has received supplies from [employer] did not receive paper prescription for Oxycodone advises patient does not need at this time will notify provider. Medication changes: Yes If yes, what are they and does patient understand how and when to take? yes Medication list reviewed with patient: Yes Medication-related problems: MTP: Problem identified - No medication-related issues identified - none Patient able to obtain prescribed medications per discharge list: No , did not receive paper RX for oxycodone Pharmacy needs: None at this time Patient provided pharmacy number [phone] for medication related concerns/follow up. Needs follow up appointment or procedure: Yes Future Appointments (next 10) Provider Department Center 06/23/2024 1:00 PM Giorgio Mi MD [facility] Otolaryngology (ENT) [facility] 06/23/2024 2:00 PM Bossman Jeronimo CCC-OFFICE SYSTEM ANALYST [facility] Speech ENT [facility] 06/23/2024 3:[address] [facility] Oncology [facility] Review need for or follow up on pending diagnostic test, referrals to specialist and treatment plans with patient/caregiver: NA Community resources identified for patient/family: No i.e. [employer] Durable medical equipment ordered:Yes Education provided to patient/caregiver to support self management, ADL's, etc: TJ offered reviewed AVS Mode of Transportation: patent spouse provides Interact with other health client care coordinator involved in patient care:No Referral to Primary Care Coordination :NA Referral to [facility] :NA Additional information needed and requested:No Reminded to bring in all medications. (Old AND New) to future appointment.[facility] [id number] Telephone encounter Note* Telephone Encounter - Yudith Thomas RN - 06/17/2024 10:49 AM EDT Transitions of Care Follow Up Call Initial communication post- discharge: 1st attempt: 06/17/24 [x] Text sent Yes 2nd attempt: 06/17/24 Sources of Information: [x]Patient, family member or doggy daycare activities director: Gianna Monique ( and caregiver) [x] Hospital Discharge/CDU Summary reviewed: [] Hospital fax received from: [] List of recent hospitalizations or ED visits reviewed : [] Patient/Caregiver decline Follow Up Call [] CarePort: []Other: Date of Admission: 06/10/2024 Date of Discharge: 06/16/2024 Hospital Discharge diagnosis: 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 Patient daughter is nursing director able to assist with equipment and dressing changes. organizes medications and administers tube feedings. Has received supplies from [employer] did not receive paper prescription for Oxycodone advises patient does not need at this time will notify provider. Medication changes: Yes If yes, what are they and does patient understand how and when to take? yes Medication list reviewed with patient: Yes Medication-related problems: MTP: Problem identified - No medication-related issues identified - none Patient able to obtain prescribed medications per discharge list: No , did not receive paper RX foroxycodone Pharmacy needs: None at this time Patient provided pharmacy number [phone] for medication related concerns/follow up. Needs follow up appointment or procedure: Yes Future Appointments (next 10) Provider Department Center 06/23/2024 1:00 PM Giorgio Mi MD [facility] Otolaryngology (ENT) [facility] 06/23/2024 2:00 PM Bossman Jeronimo, DACIA-OFFICE SYSTEM ANALYST [facility] Speech ENT [facility] 06/23/2024 3:[address] [facility] Oncology [facility] Review need for or follow up on pending diagnostic test, referrals to specialist and treatment plans with patient/caregiver: NA Community resources identified for patient/family: No i.e. [employer] Durable medical equipment ordered:Yes Education provided to patient/caregiver to support self management, ADL's, etc: TJ offered reviewed AVS Mode of Transportation: patent spouse provides Interact with other health client care coordinator involved in patient care:No Referral to Primary Care Coordination :NA [facility] Additional information needed and requested:No Reminded to bring in all medications. (Old & New) to future appointment. [employer] Work Phone: [phone] Miscellaneous Notes* Telephone Encounter - Yudith Thomas RN - 06/17/2024 10:49 AM EDT Transitions of Care Follow Up Call Initial communication post- discharge: 1st attempt: 06/17/24 [x] Text sent Yes 2nd attempt: 06/17/24 Sources of Information: [x]Patient, family member or doggy daycare activities director: Gianna Monique ( and caregiver) [x] Hospital Discharge/CDU Summary reviewed: [] Hospital fax received from: [] List of recent hospitalizations or ED visits reviewed : [] Patient/Caregiver decline Follow Up Call [] CarePort: []Other: Date of Admission: 06/10/2024 Date of Discharge: 06/16/2024 Hospital Discharge diagnosis: 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 Patient daughter is nursing director able to assist with equipment and dressing changes. organizes medications and administers tube feedings. Has received supplies from [employer] did not receive paper prescription for Oxycodone advises patient does not need at this time will notify provider. Medication changes: Yes If yes, what are they and does patient understand how and when to take? yes Medication list reviewed with patient: Yes Medication-related problems: MTP: Problem identified - No medication-related issues identified - none Patient able to obtain prescribed medications per discharge list: No , did not receive paper RX foroxycodone Pharmacy needs: None at this time Patient provided pharmacy number [phone] for medication related concerns/follow up. Needs follow up appointment or procedure: Yes Future Appointments (next 10) Provider Department Center 06/23/2024 1:00 PM Giorgio Mi MD [facility] Otolaryngology (ENT) [facility] 06/23/2024 2:00 PM Bossman Jeronimo, CCC-OFFICE SYSTEM ANALYST [facility] Speech ENT [facility] 06/23/2024 3:[address] [facility] Oncology Medical [facility] Review need for or follow up on pending diagnostic test, referrals to specialist and treatment plans with patient/caregiver: NA Community resources identified for patient/family: No i.e. [employer] Durable medical equipment ordered:Yes Education provided to patient/caregiver to support self management, ADL's, etc: TJ offered reviewed AVS Mode of Transportation: patent spouse provides Interact with other health client care coordinator involved in patient care:No Referral to Primary Care Coordination :NA [facility] Additional information needed and requested:No Reminded to bring in all medications. (Old & New) to future appointment. documented in this [id number] Telephone encounter Note* Telephone Encounter - Mckenzie Painting - 06/17/2024 10:42 AM EDT [facility] sent a fax saying that pt. Refused home health care' Agreeable to office discussing further before doing non-admit. - S [id number] Miscellaneous Notes* Telephone Encounter - Mckenzie Painting - 06/17/2024 10:42 AM EDT [facility] sent a fax saying that pt. Refused home health care' Agreeable to office discussing further before doing non-admit. - S documented in this [id number] Hospital Discharge instructions* Discharge Instructions* Landon Pino MD - 06/16/2024 3:22 PM EDT Images from the original note were not included. DEPARTMENT OF OTOLARYNGOLOGY (ENT) DISCHARGE INSTRUCTIONS Outpatient Surgery C O N F I D E N T I A L I N F O R M A T I O N The following is a brief overview of your hospitalization today. Some of the information contained on this summary may be confidential. This information should be kept in your records and should be shared with your regular doctor. Quirino Cordero [facility] [address] Phone numbers mobile [phone] Date of Procedure: 06/10/24 Physicians: Dr. Mi and Dr. Villarreal (ENT) Discharge Date: 06/16/24 Disposition: Home with home health Procedure that was performed: Direct Laryngoscopy, Esophagoscopy, tracheostomy, resection of left tongue SCCa, left neck dissection, and reconstruction with left radial forearm free tissue transfer and left split thickness skin graft Anesthesia received: General Call [phone] during regular daytime business hours (8:00 am - 5:00 pm) and after 5:00 pm call [phone] and ask to speak with the ENT Resident All Terrain Vehicle Technician with any questions or concerns. If it is a life-threatening situation, proceed to the nearest emergency department. Your Follow-up Appointment(s) Future Appointments Date Time Provider Department Center 06/23/2024 1:00 PM Clayton Villarreal MD ENT F [facility] 06/23/2024 2:00 PM Bossman Jeronimo, DACIA-OFFICE SYSTEM ANALYST SPEECH ENT [facility] 06/23/2024 3:[address] OncMed [facility] Location: [facility] ([facility]) [address] [place] [address] ([phone]) Thank you for the opportunity to care for you today. Your health and healing are very important to us. We are committed to your recovery and continued well- being, and we hope that we made you feel ascomfortable as possible. What to Expect During your Recovery and Home Care Anesthesia Side Effects You received General anesthesia today. You may feel sleepy, tired, or have a sore throat. You may also feel drowsy, dizzy, or have the inability to think clearly. For your safety, do not drive, drink alcoholic beverages, take any unprescribed medication or make any important decisions for24 hours. Do not drive or operate heavy machinery while taking narcotic pain medications as these medications can alter perception, impair judgement, and slow reaction times. A responsible adult should be with you for at least the first 24 hours after discharge. Activity and Recovery No heavy lifting, weight bearing as tolerated, no driving until cleared by your doctor. Do not submerge incision(s) in standing water until cleared by your doctor (no tub bathing, swimming, or hot tubs). Specific Discharge Instructions: Decannulation Instructions Your tracheostomy site will close on its own, without requiring suture closure or any additional procedure. To help ensure quick healing of the trach site, it is very important to apply pressure to the site whenever you cough, talk, swallow and laugh. Without adequate pressure to the site, air willcontinue to leak from the wound, serving to keep it open instead of allowing it to heal. With consistent pressure during coughing, talking, laughing and swallowing, you will help to allow these tissues to heal more quickly. As the tracheotomy site will continue to drain for a while, it is important to keep clean, dry dressings in place until the wound site has completely healed. The site itself will heal from the insideout; meaning the trachea will likely close before the soft tissues of the neck. While air continuesto leak from the site during respiration, speaking, etc., the trachea has not yet closed and particular attention should be pain to ensuring there is adequate manual pressure applied to the wound site when talking and coughing. Once no further air leakage is noted, it can usually be assumed that the trachea has closed. Although this may happen fairly quickly, the wound site itself may continue to seep/drain slightly for some time. This is very normal as the soft tissues of the neck, outside the trachea, continue to heal. Cover with 4x4 guaze as needed Tube Feed Regimen: Tube Feed: Boost VHC, 360mL (1.5 cartons) at 8am and 12pm, 240mL (1 carton) at 4pm and 8pm Flush tube with 150 ml of water before and after feeds. Incision Care: Facial/Neck Incision Care: Cleanse all facial/neck incisions twice daily with baby shampoo or mild soap and water. Apply petroleum jelly/vaseline to incision line twice daily until incision has healed. Intra-oral Incision Care: To care for your intra-oral incisions, please swish and spit with 15 mLs of peridex solution 3-4 times daily until follow-up. Use swabs to perform oral care. Skin Graft Instructions: Skin Graft Donor Site: Left Thigh Skin Graft Donor Site Care: Cleanse skin graft donor site daily with baby shampoo or mild soap and water, pat dry, no scrubbing. Apply abel cream to the skin graft site twice a day.. Reconstruction Donor Site Care Instructions: Free Flap Donor Site: Left Forearm. Radial Forearm (Forearm) Care: Clean free flap donor site daily with baby shampoo or mild soap and water, pat dry, no scrubbing. Dressing to free flap donor site is to be changed daily. Apply xeroform then cover with non-stick telfa. Wrap with kerlix to hold in place. Wrap with an jessica wrap. Other Instructions: Please follow-up with Urology within 2 weeks for your indwelling cervantes catheter (urinary catheter) removal. A referral has been placed. Please call the Urology department at , option 1 to schedule an appointment if one was not made for you today. Please maintain a NPO (Nothing by mouth) diet until your follow-up appointment. Medicines Your regular medications can be resumed tomorrow. Pain Control Unfortunately, you may experience pain after your procedure. Adequate management should include alternative measures to help ease your pain and can include the use of ice/cool packs, acetaminophen (Tylenol) or Oxycodone can be taken as prescribed as needed for breakthrough pain. Oxycodone is a narcotic and can become addictive and may also induce constipation. Please take stool softeners when taking this medication to prevent constipation. If you are not given a prescriptionfor a stool softener, they may be purchased [id number] at any local drugstore. Nausea/Vomiting Clear liquids are best tolerated at first. Also, you may feel nauseous or like you need to vomit ifyou take any type of medication on an empty stomach. Signs of Bleeding Minor bleeding or drainage may occur from the surgical site, however, excessive or consistent bleeding should be reported to your surgeon. Treatment/wound care: Keep area(s) clean and dry. It is okay to shower 1 day after surgery. Do not scrub incision(s), pat dry. Do not use any lotions, creams, or perfumes around the incision site- unless prescribed by your doctor. Do not submerge incision(s) in standing water until seen for your follow up appointment (no tub bathing, swimming, or hot tubs). Please visually inspect your incision(s) at least once daily. If the incision(s) are in a difficultto see location, please use a mirror or have someone else assist with visual inspection. Signs of Infection Signs of infection can include fever, excessive swelling, heat, drainage, redness, or severe pain. If you see any of these occur, please contact your doctor's office at [phone]. Any fever higherthan 100.4, especially if associated with an ill feeling, abdominal pain, chills, or nausea should be reported to your surgeon. If you have sutures that you can see outside of the skin or lakshmi: Any non-dissolvable sutures or lakshmi will be removed in our clinic 10-14 days after the date of surgery. Do not remove the lakshmi/sutures on your own. Return sooner or call if incision(s) or the surrounding area have increased in swelling, pain, warmth, redness, or drainage that is thick, yellowand/or green. Additional Instructions: Patient Education Opioids - Know the Risks What are opioids? Prescription opioids can be used to help relieve bljzzdqm-nd-hnppub pain and are often prescribed following a surgery or injury, or for certain health conditions. These medications can be an important part of treatment, but also come with serious risks. It is important to work with your health care provider to make sure you are getting the safest, most effective care. Common opioids include: Codeine Hydromorphone Morphine Fentanyl Meperidine Oxycodone Hydrocodone Methadone What are the risks and side effects? Prescription opioids carry serious risks of addiction and overdose, especially with prolonged use. An opioid overdose, often marked by slowed breathing, can cause sudden . The use of prescription opioids can have a number of side effects as well, even when taken as directed. What puts me at risk? History of drug misuse, MARY or overdose Family history of drug misuse, MARY or overdose Mental health disorders Sleep apnea Age 16-65 Home life (stress level) Environmental exposure Proper Storage and Disposal of Prescription Drugs Store your narcotics safely. Keep them out of reach of children and others in your home. Drop unused or prescription drugs at your local police station. Do not share your narcotic medicine with anyone. Visit [facility]org for locations. DO NOT keep extra or prescription drugs at home. DO NOT dispose of medication in the toilet or sink drain. Important Advisory When Using Pain Medications Do not use strong pain medications like Tylenol#3 (codeine/acetaminophen), Percocet (oxycodone/acetaminophen), Vicodin (hydrocodone/acetaminophen) or muscle relaxants when driving, caring for children, using tools, working or while doing any activity that may be dangerous. Danger is increased when pain medications are mixed with alcohol. When your pain begins to lessen, talk with the health care provider you see for pain about switching to another kind of pain reliever. 24 Hour Hot Line Telephone Numbers/ Information If you are having an Emergency Call 911 Suicide or Mental Health Mobile Crisis Help Line [phone] Narcotics Anonymous Center for Disease Control and Prevention www.cdc.gov 211 First Call For Help (05/05) 2-1-1 from phone OR 211[employer] Falls Prevention Each year, 1 in every 3 adults over the age of 65 are treated for fall-related injuries. The risk of falling increases with each decade of life. The good news is, many falls are preventable. Here are some fall prevention tips: Exercise can increase strength and improve balance, making falls much less likely. For more informati on visit: http://[facility].org/services/frqu-qbigre-ec-your-health/a-matte h-ga-gugqzci/ Some medications or combinations of medications can lead to side effects that cause falls. Have a doctor or pharmacist review all medications to help reduce the chance of risky side effects. Poor vision can lead to falls. Have your eyes checked every year. Ensure that your glasses are the correct strength. Eliminate hazards in your home by completing this home safety checklist. Remove things you can trip over from stairs and places you walk Install handrails and lights on all staircases. Remove small throw rugs or use double-sided tape to keep rugs from slipping. Keep items you use often in cabinets you can reach easily without using a step stool. Put grab bars inside and next to the tub or shower and next to your toilet.Use non-slip mats in thebathtub and on shower floors. Improve the lighting in your home. Hang lightweight curtains or shades to reduce glare. Wear shoes both inside and outside the house. Avoid going barefoot or wearing slippers. To lower the risk of hip fractures: Get adequate calcium and vitamin D, from food and/or supplements. Do weight bearing exercise. Get screened for osteoporosis and treated if needed Patient Education Exercise The Basics Written by the doctors and editors at [facility] What are the benefits of exercise? -- Exercise has many benefits. It can: Burn calories, which helps people control their weight Help control blood sugar levels in people with diabetes Lower blood pressure, especially in people with high blood pressure Lower stress and help with depression Keep bones strong, so they don't get thin and break easily Lower the chance of dying from heart disease What are the main types of exercise? -- There are 3 main types of exercise. They are: Aerobic exercise - Aerobic exercise raises a person's heart rate. Examples of aerobic exercise are walking, running, or swimming. Resistance training - Resistance training helps make your muscles stronger. People can do this typeof exercise using weights, exercise bands, or weight machines. Stretching - Stretching exercises help your muscles and joints move more easily. It's important to have all 3 types of exercise in your exercise program. That way, your body, muscles, and joints can be as healthy as possible. Should I talk to my doctor or nurse before I start exercising? -- If you have not exercised before or have not exercised in a long time, talk with your doctor or nurse before you start a very active exercise program. If you have heart disease or risk factors for heart disease (like high blood pressure or diabetes),your doctor or nurse might recommend that you have an exercise test before starting an exercise program. When you start an exercise program, start slowly. For example, do the exercise at a slow pace or for a few minutes only. Over time, you can exercise faster and for longer periods of time. What should I do when I exercise? -- Each time you exercise, you should: Warm up - Warming up can help keep you from hurting your muscles when you exercise. To warm up, do a light aerobic exercise (such as walking slowly) or stretch for 5 to 10 minutes. Work out - During a workout, you can walk fast, swim, run, or use an exercise machine, for example.You should also stretch all of your joints, including your neck, shoulders, back, hips, and knees. At least 2 times a week, you can add resistance training exercises to your workout. Cool down - Cooling down helps keep you from feeling dizzy after you exercise and helps prevent muscle cramps. To cool down, you can stretch or do a light aerobic exercise for 5 minutes. How often should I exercise? -- Doctors recommend that people exercise at least 30 minutes a day, on 5 or more days of the week. If you can't exercise for 30 minutes straight, try to exercise for 10 minutes at a time, 3 or 4 times a day. Even exercising for shorter amounts of time can be good for you, especially if it means spending less time sitting. When should I call my doctor or nurse? -- If you have any of the following symptoms when you exercise, stop exercising and call your doctor or nurse right away: Pain or pressure in your chest, arms, throat, jaw, or back Nausea or vomiting Feeling like your heart is fluttering or racing very fast Feeling dizzy or faint What if I don't have time to exercise? -- Many people have very busy lives and might not think thatthey have time to exercise. But it's important to try to find time to exercise, even if you are tired or work a lot. Exercise can increase your energy level, which might even help you get more work done. There are many ways that you can be more active. For example, you can: Take the stairs instead of the elevator Park in a parking space that is farther away from the door Take a longer route when you walk from one place to another Spending a lot of time sitting still - for example, watching television or working on the computer - can be bad for your health. Try to get up and move around whenever you can. Even small amounts of movement, like short walks or doing silk screener, can help improve your health. What else should I do when I exercise? -- To exercise safely and avoid problems, be sure to: Drink fluids during and after exercising (but avoid energy drinks with a lot of caffeine) Avoid exercising outside if it is too hot or cold Wear layers of clothes, so that you can take them off if you get too hot Wear shoes that fit well and support your feet All topics are updated as new evidence becomes available and our peer review process is complete. This topic retrieved from [employer] on: May 10, 2020. Topic 82318 Version 20.0 Release: 28.4.6 - C28.294 2019 [employer]. and/or its affiliates. All rights reserved. Consumer Information Use and Disclaimer This information is not specific medical advice and does not replace information you receive from your health care provider. This is only a brief summary of general information. It does NOT include all information about conditions, illnesses, injuries, tests, procedures, treatments, therapies, discharge instructions or life-style choices that may apply to you. You must talk with your health care provider for complete information about your health and treatment options. This information should not be used to decide whether or not to accept your health care provider's advice, instructions or recommendations. Only your health care provider has the knowledge and training to provide advice that is right for you.The use of [employer] content is governed by the [employer] Terms of Use. 2019 [employer]. All rights reserved. Copyright 2020 [employer]. and/or its affiliates. All rights reserved. Reviewed June 2020 documented in this [id number] Consult note* Kevin Sandoval OT - 06/16/2024 3:13 PM EDTAssociated Order(s): IP OCCUPATIONAL THERAPY SERVICE REQUEST OCCUPATIONAL THERAPY NOTE Consult received for splint fabrication. Patient mod I . D/c from acute OT services on 06/14/24 Pt was seen this AM x 25 minutes for LUE Thermoplastic splint fabrication. (Time In: 1140, Time Out: 1205) Appearance: Seated in chair upon arrival, trach, IV, bulky dressing to LUE. Family present Unable to assess skin due to bulky dressing UE Motor: L Radial forearm free flap Patient s/p trach, resection of tongue SCCa, neck dissection, and reconstruction with radial forearm free tissue transfer on 06/10/24 *Fabricated: L wrist cock up splint *Good fit and position achieved. Pt reports splint is comfortable. *Purpose of splints: enhance function, support/rest, and protect healing - L radial forearm *Wearing schedule: At all times, day & night. Until next MD visit. Will adjust at needed. Per order splint will go over wound dressing ( (xeroform, telfa, kerlix, and jessica wrap) Precautions discussed with the patient *Reviewed splint application, wear schedule, care, and precautions with patient, who report(s) no questions/problems at this time. Splint to be assess at follow up appointments. Patient to d/c home today. KIYA Torres/Veronica [id number] Consult note* Kevin Sandoval OT - 06/16/2024 3:13 PM EDTAssociated Order(s): IP OCCUPATIONAL THERAPY SERVICE REQUEST OCCUPATIONAL THERAPY NOTE Consult received for splint fabrication. Patient mod I . D/c from acute OT services on 06/14/24 Pt was seen this AM x 25 minutes for LUE Thermoplastic splint fabrication. (Time In: 1140, Time Out: 1205) Appearance: Seated in chair upon arrival, trach, IV, bulky dressing to LUE. Family present Unable to assess skin due to bulky dressing UE Motor: L Radial forearm free flap Patient s/p trach, resection of tongue SCCa, neck dissection, and reconstruction with radial forearm free tissue transfer on 06/10/24 *Fabricated: L wrist cock up splint *Good fit and position achieved. Pt reports splint is comfortable. *Purpose of splints: enhance function, support/rest, and protect healing - L radial forearm *Wearing schedule: At all times, day & night. Until next MD visit. Will adjust at needed. Per order splint will go over wound dressing ( (xeroform, telfa, kerlix, and jessica wrap) Precautions discussed with the patient *Reviewed splint application, wear schedule, care, and precautions with patient, who report(s) no questions/problems at this time. Splint to be assess at follow up appointments. Patient to d/c home today. Kevin Sandoval OTR/L * Theresa Cullen RD - 06/15/2024 2:17 PM EDT Nutrition Support (TF) Discharge Planning Note Pt nearing discharge to home with [facility] on TF. Reports tolerating TF, no issues. However, per RN has needed to run feeds over 2hrs d/t some abdominal discomfort. Recommend to transition to home TF regimen today to ensure well-tolerated by pt prior to discharge - starting with x2hr run time for feeds via gravity bag, then if tolerating transition down to x1hr run time. [employer] has delivered his homegoing TF supplies however family reports not being provided education yet - reached out to DME who states that they will return to provide ed in the AM. Current TF order: Impact Peptide 1.5/Pivot 1.5 400mL 4x/d - each bolus ran over 1hr via pump. + [id number] before & after each bolus. Diet: NPO Estimated needs: using admit wt 5453-5472 kcal/d 25-30 kcal/kg admit wt [105.2 kg] [MSJ 1750 kcal] 135g pro/d 2 g pro/kg IBW 2600 mL/d 25 mL/kg admit wt Recommendations/Plan: Transition to home TF regimen to ensure pt is tolerating well prior to discharge home: Boost VHC - 360 mL (1.5 cartons) at 8a and 12p + 240 mL (1 carton) at 4p and 8p- do not use pump. Please give via syringe or gravity bag. Run each bolus over 2hrs - if well-tolerated run over 1hr. Water flushes 150 mL before and 150 mL after each TF bolus 2. [employer] was contacted today about providing homegoing TF education prior to dc - state theywill provide education to family in the AM 06/16/24. Supplies have already been delivered to room. 3. MD - please place OP nutrition referral for follow-up/home TF management --> [id number] (specify enteral nutrition) in discharge orders. Theresa Cullen RD, LD, [facility] Personal Pager: [phone] On-Call Nutrition Pager: [phone] Time spent on patient care: 45 minutes * Caitlyn Huang, PT - 06/14/2024 11:59 AM EDT Physical Therapy Time in: 1020, time out: 1037 SUBJECTIVE: pt motivated to mobilize, no c/o OBJECTIVE: Pt. seen on 5w for 17 minutes for treatment as follows: Appearance/behavior: OOB in chair with Papo pressure alarm intact. Prior to and after rx, + trach,ICU montiors, doppler on plugged in, L short UE splint, surgical incisions, Pain: 0/10, Transfers: mod Independent without device Ambulation: mod Independent 300' without device, steady gait Stairs: deferred as pt with no stairs, pt deferred Patient education: pt and family about amb on unit at least 3x/day with assist for lines 06/14/2024 6 Clicks Basic Mobility PT Difficulty turning over in bed 4 Difficulty sitting down and standing up from a chair with arms 4 Difficulty moving from lying on back to sitting on the side of the bed 4 Help from another person moving to and from bed to a chair 4 Help from another person to walk in hospital room 4 Help from another person climbing 3-5 steps with a railing 3 PT 6 Clicks Score 23 6 Click Score Guidelines: 1 - Total = Requires total assistance, or cannot do at all. 2 - A lot = Requires a lot of help (maximun to moderate assistance) Can use assistive devices. 3 - A little = Requires a little help (supervision, minimal assistance) Can use assistive devices. 4 - None = Does not require any help and does the activity independently. Can use assistive devices.. ASSESMENT: pt mobilizing well/baseline, no pain. Met goals and ok for d/c home with family assist as needed. MET all goals Goals (to be achieved by 2 days or by discharge from acute care): Patient will achieve acceptable level of pain control to allow participation in therapy. Patient will increase bed mobility to modified independent Patient will perform sit to/from stand with no device with modified independent Patient will transfer bed to/from chair with no device with modified independent Patient will ambulate 150 feet with no device with modified independent Patient will increase ROM/Strength/Endurance/Balance to allow for above goals. PLAN: d/c PT Caitlyn Huang PT [phone] * Darling Haq OT - 06/14/2024 10:39 AM EDT OCCUPATIONAL THERAPY PROGRESS SUMMARY Patient seen from 1020 to 1037 on 5 [place] unit for 17 minute treatment. SUBJECTIVE: Patient Subjective/Goals Friday re: patient's response when asked when he is going home OBJECTIVE: Pain: No pain reported or noted Pain Relief Interventions Implemented: None required; No pain at this time Appearance: trach collar, corpak, neck incision with drains, L wrist splint, doppler to neck, PIV, tele, BP cuff Behavior: alert, pleasant and cooperative Cognition: oriented x3, follows all directions, insight to impairments is improved UE Status: L UE splint in place Self Care: Assistance Level NA Dep Max Mod Min CG CS DS TX I Set-Up Cues Comment Feeding Grooming/ Hygiene x Wash hands standing at sink Bathing: Upper Body Bathing: Lower Body Dressing: Upper Body x Don gown as robe Dressing: Lower Body x Don socks Toileting x Sitting/standing at toilet Toilet Transfers x Low toilet, use of grab bar on wall Bed Transfer x Sit/stand stand/sit to/from chair Bed Mobility Ambulation x Within room, hallway , bathroom without device Patient remained seated in bedside chair end of session. Call lima and telephone within reach. Patient instructed to call for staff assist when ready to return to bed and for all mobility. RN aware of patient location and mobility status. Endurance for Self Care: WFL Patient/Family Education: Instructed Patient and Spouse in roles, goals, treatment plan: demonstrated good verbal understanding. 06/14/2024 6 Clicks Daily Activity OT Help from another person Eating meals 1 Help from another person taking care of personal grooming 3 Help from another person bathing 3 Help from another person putting on and taking off regular upper body clothing 3 Help from another person putting on and taking off regular lower body clothing 3 Help from another person toileting 3 OT 6 Clicks Score 16 6 Click Score Guidelines: 1 - Unable = Total/Dependent Assist 2 - A lot = Max/Moderate Assist 3 - A little = Minimum/Contact Guard Assist/Supervision 4 - Non = Modified [place]/Independent ASSESSMENT: Patient is functionally appropriate for discharge home once medically cleared. Recommend PRN family/caregiver assist. No further acute care OT needs. Goals (to be achieved by discharge from acute care): GOALS MET Patient will perform grooming with Modified Independent Patient will dress upper body with Modified Independent Patient will dress lower body with Modified Independent Patient will perform bed mobility with Modified Independent Patient will perform bathing with Distant supervision Patient will perform toileting with Modified Independent Patient will perform bed transfers with Modified Independent PLAN: Discharge OT Darling GREEN, OTR/L Pager: [phone] Secure chat preferred NA = Not Assessed, I = Independent, TX = Modified Independent, Sup = Supervised, Set up = Physical Assistance for Set-up Only, Min = Minimal Assistance, Mod = Moderate Assistance, Max = Max assistance; Dep = Dependent; AROM = Active Range of Motion;PROM=Passive Rangeof Motion; MMT = Manual Muscle Test; Shld= Shoulder; Add = Adduction; Abd = Abduction * Christiana Simpson, RD - 06/11/2024 10:50 AM EDTAssociated Order(s): NUTRITION NEW CONSULT Images from the original note were not included. 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 Past Surgical History: Procedure Laterality Date DISSECTION, RADICAL NECK, FREE FLAP N/A 06/10/2024 Procedure: PARTIAL GLOSSECTOMY, TRACHEOSTOMY, NECK DISSECTION; Surgeon: Clayton Villarreal MD; Location: PERIOPERATIVE SERVICES; Service: Otolaryngology DISSECTION, RADICAL NECK, MODIFIED N/A 06/10/2024 Procedure: LEFT RADIAL FOREARM FREE FLAP, SPLIT THICKNESS SKIN GRAFT FROM THIGH; Surgeon: Giorgio Mi MD; Location: PERIOPERATIVE SERVICES; Service: Otolaryngology ESOPHAGOSCOPY RIGID N/A 06/10/2024 Procedure: ESOPHAGOSCOPY RIGID; Surgeon: Giorgio Mi MD; Location: PERIOPERATIVE SERVICES; Service: Otolaryngology LARYNGOSCOPY N/A 06/10/2024 Procedure: LARYNGOSCOPY, DIRECT; Surgeon: Giorgio Mi MD; Location: PERIOPERATIVE SERVICES; Service: Otolaryngology has No Known Allergies. Labs: Basic Metabolic Panel 06/11/2024 06/10/2024 06/10/2024 06/10/2024 5:31 AM 8:21 PM 1:48 PM 9:12 AM Na 139 141 141 142 K 4.1 4.6 3.9 4.0 Cl 107 107 110 107 CO2 25 25 -- -- Gap 11 14 -- -- Glu 148 149 143 142 BUN 25 24 -- -- Cr 1.10 1.22 -- -- Ca 8.9 9.1 -- -- Mg 1.8 1.6 -- -- PO4 3.8 4.0 -- -- CBC (last 3 years, up to 8 values) 06/11/2024 06/10/2024 06/10/2024 06/10/2024 05/26/2024 4:42 AM 8:04 PM 1:48 PM 9:12 AM 8:16 AM WBC 9.8 10.4 -- -- 8.5 RBC 3.97 4.42 -- -- 5.30 Hgb 12.2 13.3 12.7 14.1 16.4 Hct 36.6 40.6 39.0 43.2 49.8 MCV 92 92 -- -- 94 RDW 15.1 14.9 -- -- 15.1 Plt 173 160 -- -- 148 LFT's (last 3 years, up to 8 values) No lab values to display. Lipids (last 3 years, up to 8 values) No lab values to display. Arterial Blood Gases T Site Mode LPM FIO2 pH pCO2 pO2 Sat Base Ex HCO3- A-a 06/10/24 1348 22 06/10/24 1348 7.407 35.9 115 98.2 -1.6 22 No results found for: HBA1C Accuchecks: Fingerstick Glucose (last 72 hours) None No results found for: B12 No results found for: FOL No results found for: FE No results found for: VITD25 No results found for: ZINC Vital sign ranges over the past 24 hours (retrieved 06/11/2024 at 10:50 AM): Tmax (24 hours): 99.3 F (37.4 C) Pulse Av.4 Min: 53 Max: 101 Systolic (24hrs), Av , Min:132 , Max:168 Diastolic (24hrs), Av, Min:54, Max:85 MAP (mmHg) Av.5 mmHg Min: 77 mmHg Max: 104 mmHg Resp Av.3 Min: 12 Max: 29 SpO2 Av.7 % Min: 85 % Max: 100 % Most Recent Ventilator Settings: FiO2 (%): 50 LastBM: none yet Nutritionally Significant Meds: heparin (porcine), 5,000 Units, Subcutaneous, Every End of Shift busPIRone, 10 mg, Oral, Daily atorvastatin, 80 mg, Oral, Every evening senna, 5 mL, Oral, At Bedtime acetaminophen, 1,000 mg, NG Tube, Every 8 hours chlorhexidine oral care kit with toothette, 15 mL, Oral, EVERY 12 HOURS ampicillin-sulbactam, 3,000 mg, Intravenous, Q6H Antibiotic bacitracin, , Topical, 3x Daily aspirin, 81 mg, NG Tube, Daily metoprolol, 25 mg, NG Tube, BID [START ON 06/13/2024] vitamin A & D, , Topical, 3x Daily Tube feed, , Last Rate: 20 mL/hr at 06/10/24 2030 HYDROmorphone, lactated ringers, , Last Rate: 75 mL/hr at 06/11/24 0900 Diet Order: NPO Nutrition Focused Physical Exam Muscle loss: Confucianism region: well defined Clavicle region: not visible/not prominent Scapula region: no depressions Hand: muscle bulges Anterior thigh: well rounded Posterior calf: well developed Fat loss: Orbital region: bulged fat pads Tricep/bicep region: ample fat tissue Rib/back region: chest full/ribs do not show Edema: tongue, oral nonpitting Hair/Nails/Skin: trach, oral, L arm surgical sites, ROBERTH drains x3 Eyes/Nose/Mouth: corpak Height: Data Unavailable 67 inches Admit Weight: 105.2 kg Current Weight: 105.2 kg IBW: 67.3 kg Current BMI: 36.34 Weight hx: Kg Lbs 05/11/2024 1:09 PM 107.094 kg 236 lb 1.6 oz 05/26/2024 8:32 AM 105.235 kg 232 lb 05/26/2024 9:17 AM 105.28 kg 232 lb 1.6 oz 06/10/2024 6:47 AM 105.235 kg 232 lb Estimated needs: using admit wt 2907-4792 kcal/d 25-30 kcal/kg [MSJ 1750 saravanan] 135g pro/d 2 g pro/kg of ibw 2600 mL/d 25 mL/kg Assessment: 74 yo male w/ pmh of HLD, HTN, tongue SCC, oral dysphagia now s/p trach, resection of tongue SCCa, neck dissection with radial forearm free flap reconstruction w/ STSG [Dr Villarreal 06/10/2024]. 06/10 Admitted to SICU post op for airway monitoring and flap checks; Trach collar; NPO; LR @75 06/11 Trickle TF started - pivot 1.5 @ 20 mL/hr Met with pt bedside. Pts son, daughter, and also present during this visit. Briefly reviewed nutrition plan in acute setting and transition out of hospital with feeding tube should this become indicated. TF noted to be running at 20 mL/hr - pt communicates via writing board and reports tolerating well at this time. 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 Eating regular solid foods such as hamburgers with just oral pain reported but no choking. Was seen by OP rough rib grader and RD earlier in month. OFFICE SYSTEM ANALYST recommending dental soft foods though pt continued to eat regular solids. Per pt was focusing on increasing protein intake from foods per RD recommendations but didn't purchase any ONS. Family asked many questions pertaining to discharge plan should he require home TF. reports she would have toadminister feeds. Daughter lives next door and could assist between working hours. RD to monitor discharge plan/needs Nutrition Problems: ENT surgery Enteral nutrition Nutrition Interventions: - Enteral nutrition Impact Peptide 1.5/Pivot 1.5 @ 20 mL/hr increasing 10 mL q4hr until goal @ 70 mL/hr continuous Goal provides 1680 mL, 2520 calories, 157g protein - Transition to bolus feeds once tolerating continuous feeds at goal volume Impact Peptide 1.5 [sub Pivot 1.5] 400 mL 4x/daily 8a, 12p, 4p, and 8p - ok to run each feed over 1hr on pump Water flush: 120 mL before and 120 mL after each TF bolus - May transition to standard TF/ONS prior to d/c home Boost [facility] - 360 mL (1.5 cartons) at 8a and 12p + 240 mL (1 carton) at 4p and 8p- do not use pump. Please give via syringe or gravity bag Water flush: 150 mL before and 150 mL after each TF bolus - Monitor discharge plan/needs Christiana Simpson RD, LD, [facility] Personal Pager: [phone] (Mon-Fri 7a-3:30p) Nutrition All Terrain Vehicle Technician Pager (evenings/weekends 7a-7p): [phone] 60 minutes Dietitian vs DietaryTech: Dietitian and Test And Turn Up Technician * Lyssa Ott, PT - 06/11/2024 9:29 AM EDTAssociated Order(s): IP PHYSICAL THERAPY SERVICE REQUEST PHYSICAL THERAPY ACUTE EVALUATION Referral received, chart reviewed. Patient seen from 8:37am to 9:00am on GC5W unit for 23 minutes. Co-session with OT necessary for safe and professional assist with mobility assessment and training. Admit date/time: 06/10/2024 5:42 AM Reason for Admit: scheduled procedure Diagnosis: Left lateral tongue squamous cell carcinoma Precautions: Falls NPO Full Code OOB 3x/day with assist Procedures this admit: 06/10/[address] Mi Direct laryngoscopy with biopsy 2. Rigid esophagoscopy 3. Left radial forearm free tissue transfer with microvascular anastomosis 4. Complex vestibuloplasty 5. Split thickness skin graft from the left thigh 4 x 6 cm to left forearm defect 6. Application of short-arm splint to left forearm donor site trach, resection of tongue SCCa, neck dissection Past Medical and Surgical History: PMH: HLD, HTN, tongue SCCA No past medical history on file. PSH: Past Surgical History: Procedure Laterality Date DISSECTION, RADICAL NECK, FREE FLAP N/A 06/10/2024 Procedure: PARTIAL GLOSSECTOMY, TRACHEOSTOMY, NECK DISSECTION; Surgeon: Clayton Villarreal MD; Location: PERIOPERATIVE SERVICES; Service: Otolaryngology DISSECTION, RADICAL NECK, MODIFIED N/A 06/10/2024 Procedure: LEFT RADIAL FOREARM FREE FLAP, SPLIT THICKNESS SKIN GRAFT FROM THIGH; Surgeon: Giorgio Mi MD; Location: PERIOPERATIVE SERVICES; Service: Otolaryngology ESOPHAGOSCOPY RIGID N/A 06/10/2024 Procedure: ESOPHAGOSCOPY RIGID; Surgeon: Giorgio Mi MD; Location: PERIOPERATIVE SERVICES; Service: Otolaryngology LARYNGOSCOPY N/A 06/10/2024 Procedure: LARYNGOSCOPY, DIRECT; Surgeon: Giorgio Mi MD; Location: PERIOPERATIVE SERVICES; Service: Otolaryngology Identification was verified by patient's id band and date of . Risks and Benefits of physical therapy: Patient informed of risks and benefits of treatment SUBJECTIVE: Patient Subjective: Patient able to answer yes/no questions. Attempts to verbalize at times, but was able to write answers to questions as needed. 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 Patient reports intermittent use of crutch for ambulation. Home: Lives with in one story home. 0 steps to enter. 0 steps to bedroom/bathrooms. Assistance available: available 05/05 Equipment available: cane , rolling walker, wheelchair, tub bench, crutches, and grab bars in bathroom. OBJECTIVE: Appearance: reciprocating drill operator, Pulse Oximeter, right radial arterial line, corpak, Tracheostomy, IV, Drain-ROBERHT x 3 (2 to neck and 1 to LUE), doppler, Billy, Veronica short arm splint Behavior: Awake, Cooperative Oriented x 3 Follows 2 step commands consistently Pain: Site/Location: denies pain Passive ROM: WFL except left wrist/hand due to splint Strength/Active ROM: Grossly at least 3/5 throughout BLE's Mobility: Supine to sit: close supervision Sitting balance: Good Sit to stand: close supervision Transfers: close supervision Ambulation/Gait: 30 feet without device with CGA. Patient ambulates with wide RYAN Endurance: Impaired Patient/Family Education: Instructed Patient in roles of therapy. Patient educated on importance of OOB mobility during hospital stay to maintain functional endurance and independence and to decrease risk of medical complications. Patient up in chair with call light in reach. Chair alarm intact. DME: With Patients permission ordered no equipment via [employer] Order. If any questions contact [facility] DME Provider at [phone]. 06/11/2024 6 Clicks Basic Mobility PT Difficulty turning over in bed 3 Difficulty sitting down and standing up from a chair with arms 3 Difficulty moving from lying on back to sitting on the side of the bed 3 Help from another person moving to and from bed to a chair 3 Help from another person to walk in hospital room 3 Help from another person climbing 3-5 steps with a railing 3 PT 6 Clicks Score 18 6 Click Score Guidelines: 1 - Total = Requires total assistance, or cannot do at all. 2 - A lot = Requires a lot of help (maximun to moderate assistance) Can use assistive devices. 3 - A little = Requires a little help (supervision, minimal assistance) Can use assistive devices. 4 - None = Does not require any help and does the activity independently. Can use assistive devices. ASSESSMENT: Quirino Cordero is a 74 year old yo male admitted to 5 s/p trach, resection of tongue SCCa, neck dissection. Patient is mobilizing near baseline levels but limited by decreased endurance and balance. Patient would benefit from PT services during acute stay, Patient is functionally appropriate for discharge home once medically cleared. Will continue to follow patient while in hospital as appropriate. Problems: Decreased ROM/strength Decreased functional mobility Decreased endurance Decreased balance Decreased education in exercise/precautions Impaired safety awareness Rehabilitation Potential: Good Goals (to be achieved by 2 days or by discharge from acute care): Patient will achieve acceptable level of pain control to allow participation in therapy. Patient will increase bed mobility to modified independent Patient will perform sit to/from stand with no device with modified independent Patient will transfer bed to/from chair with no device with modified independent Patient will ambulate 150 feet with no device with modified independent Patient will increase ROM/Strength/Endurance/Balance to allow for above goals. PLAN OF CARE: Frequency: Patient to be seen 3-5 times a week Interventions: Functional mobility ROM/Strengthening Home exercise program Discharge planning and equipment ordering as needed Patient /Family education The evaluation findings and treatment plan were discussed with the patient/family. The patient/family indicated understanding and agreement with the plan. Lyssa Ott PT NA = Not Assessed, I = Independent, TX = Modified Independent, Sup = Supervised, Set up = Physical Assistance for Set-up Only, Min = Minimal Assistance, Mod = Moderate Assistance, Max = Max assistance; Dep = Dependent; AROM = Active Range of Motion; PROM = Passive Range of Motion; MMT = Manual Muscle Test; LE = Lower Extremity * Kevin Sandoval OT - 06/11/2024 8:37 AM EDTAssociated Order(s): IP OCCUPATIONAL THERAPY SERVICE REQUEST OCCUPATIONAL THERAPY INITIAL EVALUATION Patient seen from 0837 to 0900 on 5W unit for 23 minutes. Co-tx with PT due to high medical complexity, safety concerns, assist of 2 required for mobility and/or advanced airway in place. Admit date: 06/10/2024 5:42 AM Reason for Admit: scheduled procedure Diagnosis: Left lateral tongue squamous cell carcinoma Precautions/Activity Order: High falls Full code NPO Activity: OOB 3x/day Procedures this admit: 06/10/24. Dr. Mi : Direct laryngoscopy with biopsy Rigid esophagoscopy 3. Left radial forearm free tissue transfer with microvascular anastomosis 4. Complex vestibuloplasty 5. Split thickness skin graft from the left thigh 4 x 6 cm to left forearm defect 6. Application of short-arm splint to left forearm donor site Past Medical and Surgical History: PMH:HLD, HTN, tongue SCCA PSH: Past Surgical History: Procedure Laterality Date DISSECTION, RADICAL NECK, FREE FLAP N/A 06/10/2024 Procedure: PARTIAL GLOSSECTOMY, TRACHEOSTOMY, NECK DISSECTION; Surgeon: Clayton Villarreal MD; Location: PERIOPERATIVE SERVICES; Service: Otolaryngology DISSECTION, RADICAL NECK, MODIFIED N/A 06/10/2024 Procedure: LEFT RADIAL FOREARM FREE FLAP, SPLIT THICKNESS SKIN GRAFT FROM THIGH; Surgeon: Giorgio Mi MD; Location: PERIOPERATIVE SERVICES; Service: Otolaryngology ESOPHAGOSCOPY RIGID N/A 06/10/2024 Procedure: ESOPHAGOSCOPY RIGID; Surgeon: Giorgio Mi MD; Location: PERIOPERATIVE SERVICES; Service: Otolaryngology LARYNGOSCOPY N/A 06/10/2024 Procedure: LARYNGOSCOPY, DIRECT; Surgeon: Giorgio Mi MD; Location: PERIOPERATIVE SERVICES; Service: Otolaryngology SUBJECTIVE: Patient Subjective: Patient nonverbal a this time however able to communicate via writing pad Patient Identified Goal(s):none stated - agreeable to therapy and sitting up in chair. Home Living Situation Prior Functional Status: Independent Living independent with Activities of Daily Living Independent Driving Independent Ambulation without assistive device Independent with Instrumental Activities of Daily Living Assistance Available at Home: lives with . 05/05 available. Patient lives in a 1 story home 0 stairs to enter. Full Bathroom on main level. Bedroom on main level. Equipment available at home: RW, cane, wheelchair, tub seat, grab bars , crutches OBJECTIVE: Patient Identification: patient verbalizing his/her name and date of . 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 Ambulate short distance within room. Steady pace,no LOB. Vital signs stable while ambulating. RN present in room. Bed Mobility x Supine to sit EOB , elevated HOB and bed rail used. Endurance for Self Care: Impaired Static Sitting Balance: WFL Dynamic Sitting Balance: WFL UE Motor: LUE in short arm splint. RUE WFL for ADSLS Vision/Perception: WFL Cognition: Orientation: Oriented to person, place, and date Follows Commands: WFL Attention: WNL Memory: WFL Problem Solving: WFL Safety/Judgement: insight beginning to develop Sequencing: WFL Other Specialized Tests: None Patient/Family Education: Instructed patient in roles of therapy and instructed in roles, goals, treatment plan: demonstrated good verbal understanding Patient remained seated in bedside chair end of session. Chair alarm active. Call lima and telephone within reach. Patient instructed to call for staff assist when ready to return to bed and for all mobility. RN aware of patient location and mobility status. DME: With Patients permission ordered no equipment via [employer] Order. If any questions contact [facility] DME Provider at [phone]. 06/11/2024 6 Clicks Daily Activity OT Help from another person Eating meals 1 Help from another person taking care of personal grooming 3 Help from another person bathing 2 Help from another person putting on and taking off regular upper body clothing 2 Help from another person putting on and taking off regular lower body clothing 2 Help from another person toileting 2 OT 6 Clicks Score 12 6 Click Score Guidelines: 1 - Unable = Total/Dependent Assist 2 - A lot = Max/Moderate Assist 3 - A little = Minimum/Contact Guard Assist/Supervision 4 - Non = Modified [place]/Independent ASSESSMENT: Anticipate patient will be functionally appropriate for discharge home once medically cleared. Willcontinue to follow patient while in hospital as appropriate. Recommend PRN family/caregiver assist for ADLS and IADLs. Rehabilitation Potential: Good Problem List: decreased ADLs, impaired upper extremity motor function, decreased endurance, decreased functional transfers/mobility, impaired balance, decreased home management tasks/IADLs, decreasedfunctional activity tolerance, and increased pain Goals (to be achieved by discharge from acute care): Patient will perform grooming with Modified Independent Patient will dress upper body with Modified Independent Patient will dress lower body with Modified Independent Patient will perform bed mobility with Modified Independent Patient will perform bathing with Distant supervision Patient will perform toileting with Modified Independent Patient will perform bed transfers with Modified Independent PLAN: Quirino Cordero will be seen 1-3 times a week. Treatment to include: Functional AROM/Strengthening, functional mobility training, ADL retraining, functional endurance activities, work simplification / energy conservation, home management retraining, functional task simulation, adaptive equipment / compensatory strategy training, patient / family education and discharge planning, referral to appropriate support services, and pain Management able to discuss the evaluation findings and treatment plan with the patient/family. The patient/family did participate in the development of plan and goals. 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) Hospital Problems as of 06/16/2024 * (Principal) 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) Former smoker Discharge Procedure Orders DME WOUND CARE SUPPLIES DME Tube Feed HOME CARE SERVICE REQUEST Referral Priority: Routine Referral Type: Home Health Referral Referral Location: [facility] Number of Visits Requested: 3 Expiration Date: 06/16/25 Future Appointments Date Time Provider Department Center 06/23/2024 1:00 PM Clayton Villarreal MD ENT F [facility] 06/23/2024 2:00 PM Bossman Jeronimo, CCC-OFFICE SYSTEM ANALYST SPEECH ENT [facility] 06/23/2024 3:[address] OncMed [facility] Condition at Discharge improved Symptoms to look out for after discharge: New or Severe Pain, Fever, Inability to urinate/Empty bowel, Shortness of breath, Headache, Chest Pain, Dizziness, Drainage/Bleeding from wound or surgical site and Unable to keep down fluids Activity no heavy lifting and no strenuous activity Diet: NPO with Nasogastric Tube Feeds. Disposition home with home care Functional Status ambulatory Tube feeding: [facility] This patient is not being discharged to a facility, and does not require completion of the facility form. Reason for Hospitalization 74 yo male with tongue cancer, now POD 3 s/p trach, resection of tongue SCCa, neck dissection, and reconstruction with radial forearm free tissue transfer and tracheostomy on 06/10/2024 Significant Findings S/p Direct Laryngoscopy, Esophagoscopy, tracheostomy, resection of left tongue SCCa, left neck dissection, and reconstruction with left radial forearm free tissue transfer and left split thickness skin graft Hospital Course Quirino Cordero is a 74 year old male with tongue SCCa, who underwent tongue resection and reconstruction with RFF and tracheostomy by Drs. Villarreal and Tricia on 06/10/2024. Patient had an uncomplicated surgical course. Patient recovered in PACU and was transferred to the SICU for post-operative care. Patient post-operative course was uncomplicated. IV pain medications were transitioned to enteral medications, cervantes was removed, tube feeds were initiated and advanced to home bolus,and initial tracheostomy was changed to a 4.0 cuffless with capping trial and subsequently decannulated on 06/16/24. Home medications were. Surgical drains were monitored until output had decreased and were removed. Of note, patient failed post-cervantes void trial requiring replacement of cervantes catheter and initiation of flomax medical therapy. Patient elected for outpatient removal On day of discharge, post-operative pain was well controlled with enteral pain medication, breathing on room air, ambulating well, and was tolerating a diet. Home health/supplies arranged and delivered. Follow-up arranged for 06/23/2024. I provided the patient and/or family/surrogate with the following information: Explanation of the primary diagnosis, and secondary diagnoses where applicable, including test results, Discussion of any new medications and treatments, including expected benefits and potential major side effects, Explanation of previous treatments or medications that are discontinued, Discussion of post-hospital day-to-day care needs, and Follow-up plans, and warning signs that should prompt more urgent [facility]-upThe [facility] Narrative* Landon Pino MD - 06/16/2024 2:36 PM EDT DISCHARGE SUMMARY [address] [id number] Quirino Cordero Date of : 1950 74 year old male Attending Giorgio Mi MD Date of Admission 06/10/2024 Date of Discharge 06/16/24 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) Hospital Problems as of 06/16/2024 * (Principal) 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) Former smoker Discharge Procedure Orders DME WOUND CARE SUPPLIES DME Tube Feed HOME CARE SERVICE REQUEST Referral Priority: Routine Referral Type: Home Health Referral Referral Location: [facility] Number of Visits Requested: 3 Expiration Date: 06/16/25 Future Appointments Date Time Provider Department Center 06/23/2024 1:00 PM Clayton Villarreal MD ENT F [facility] 06/23/2024 2:00 PM Bossman Jeronimo, CCC-OFFICE SYSTEM ANALYST SPEECH ENT [facility] 06/23/2024 3:[address] OncMed [facility] Condition at Discharge improved Symptoms to look out for after discharge: New or Severe Pain, Fever, Inability to urinate/Empty bowel, Shortness of breath, Headache, Chest Pain, Dizziness, Drainage/Bleeding from wound or surgical site and Unable to keep down fluids Activity no heavy lifting and no strenuous activity Diet: NPO with Nasogastric Tube Feeds. Disposition home with home care Functional Status ambulatory Tube feeding: [facility] This patient is not being discharged to a facility, and does not require completion of the facilityform. Reason for Hospitalization 74 yo male with tongue cancer, now POD 3 s/p trach, resection of tongue SCCa, neck dissection, and reconstruction with radial forearm free tissue transfer and tracheostomy on 06/10/2024 Significant Findings S/p Direct Laryngoscopy, Esophagoscopy, tracheostomy, resection of left tongue SCCa, left neck dissection, and reconstruction with left radial forearm free tissue transfer and left split thickness skin graft Hospital Course Quirino Cordero is a 74 year old male with tongue SCCa, who underwent tongue resection and reconstruction with RFF and tracheostomy by Drs. Villarreal and Tricia on 06/10/2024. Patient had an uncomplicated surgical course. Patient recovered in PACU and was transferred to the SICU for post-operative care. Patient post-operative course was uncomplicated. IV pain medications were transitioned to enteral medications, cervantes was removed, tube feeds were initiated and advanced to home bolus,and initial tracheostomy was changed to a 4.0 cuffless with capping trial and subsequently decannulated on 06/16/24. Home medications were. Surgical drains were monitored until output had decreased and were removed. Ofnote, patient failed post-cervantes void trial requiring replacement of cervantes catheter and initiation of flomax medical therapy. Patient elected for outpatient removal On day of discharge, post-operative pain was well controlled with enteral pain medication, breathing on room air, ambulating well, and was tolerating a diet. Home health/supplies arranged and delivered. Follow-up arranged for 06/23/2024. I provided the patient and/or family/surrogate with the following information: Explanation of the primary diagnosis, and secondary diagnoses where applicable, including test results, Discussion of any new medications and treatments, including expected benefits and potential major side effects, Explanation of previous treatments or medications that are discontinued, Discussionof post- hospital day-to-day care needs, and Follow-up plans, and warning signs that should prompt more urgent follow-up documented in this [id number] NoteOTOLARYNGOLOGY HEAD AND NECK SURGERY PROGRESS NOTE SUBJECTIVE NAEON AF VSS, on trach collar Doing well overall. Tolerating TF well. No issues with breathing. Pain well controlled. Having BMs. Patient will continue to have cervantes in for discharge OBJECTIVE Blood pressure 131/72, pulse 69, temperature 98.3 ???F (36.8 ???C), temperature source Axillary, resp. rate 18, weight 232 lb (105.2 kg), SpO2 96%. Alert, oriented, no acute distress, comfortable Decannulated Non-labored breathing on RA, in no respiratory distress or no stridor Neck flat, soft, incisions C/D/I No evidence of erythema, fluid collection, dehiscence, or necrosis Tongue midline, shoulder shrug intact [place] tongue bruised Flap: Strong doppler present and biphasic - intraoral skin paddle Warm and appears well perfused with appropriate cap refill. Flap well seated; soft, no dehiscence evident Donor site: Left upper extremity with motor/sensation intact Donor site dressed, no drainage Drains holding suction with ssg output SCDs in place LABORATORY AND IMAGING STUDIES Temperature: [97.9 ???F (36.6 ???C)-98.8 ???F (37.1 ???C)] 98.3 ???F (36.8 ???C) Heart Rate: [69-100] 69 Respiratory Rate: [16-20] 18 BP: (121-150)/(61-74) 131/72 Results for orders placed or performed during the hospital encounter of 06/10/24 (from the past 37567 hour(s)) COMPLETE BLOOD COUNT Collection Time: 06/16/24 1:05 AM Result Value Ref Range WBC 7.4 4.5 - 11.5 K/uL RBC 3.96 (L) 4.50 - 5.90 M/uL Hemoglobin 12.1 (L) 13.9 - 16.3 g/dL Hematocrit 36.5 (L) 41.0 - 53.0 % MCV 92 80 - 100 fL MCH 30.5 26.0 - 34.0 pg MCHC 33.1 32.0 - 35.9 g/dL Platelet 216 150 - 400 K/uL RDW-CV 15.2 (H) 11.5 - 14.5 % MPV 8.3 7.5 - 11.2 fL *Note: Due to a large number of results and/or encounters for the requested time period, some results have not been displayed. A complete set of results can be found in Results Review. Fluid Management (24hrs): Intake/Output last 3 shifts: Date 06/16/24 0700 - 06/17/24 0659 Shift [id number] [id number] 0598-4714 24 Hour Total INTAKE P.O. 0 0 NG / GT 510 510 Shift Total(mL/kg) 510(4.8) 510(4.8) OUTPUT Urine(mL/kg/hr) 50 50 Drainage 0 0 Shift Total(mL/kg) 50(0.5) 50(0.5) Weight (kg) 105.2 105.2 105.2 105.2 ASSESSMENT Admitted Diagnosis: squamous cell carcinoma of tongue Surgeon(s): Latrice Mi 6 Days Post-Op 74 yo male with tongue cancer, now POD 3 s/p trach, resection of tongue SCCa, neck dissection, and reconstruction with radial forearm free tissue transfer and tracheostomy on 06/10/2024 Flap Intraoral skin paddle Doppler: internal Donor Site: left radial forearm PLAN HEENT: -Q4H dopplers per nursing and Q24H resident flap check -DC all drains for discharge -ASA 81 mg x 7 days per flap protocol -Bacitracin to incisions TID x 3 days, then switch to vaseline TID x 14 days - Vaseline for his lips AIRWAY/PULM: -Decannulated -Wean O2 as tolerated -Standard trach care/suctioning/teaching -IS NEURO/ANALGESIA: -Oxycodone 5/10 q6 prn -Scheduled acetaminophen ID: -Unasyn x 4 days (End 06/14) -Trend daily labs CARDS: -HDS, monitor H/H -Transfuse for Hgb < 7 - Discontinued arterial line on POD1 : - Voiding spontaneously -Monitor urine output FEN/GI: -Strict NPO with TFs via DHT; home bolus TF -Zofran, PPI -PO trial when cleared by ENT -Senna BID ENDO: -Monitor blood glucose -Replace lytes PRN EXTREM: -Bolster down on 06/16 -Split thickness dressing down on 06/15 -OT customized wrist splint for left wrist -Bacitracin to incisions TID for 3 days, then switch to vaseline. PPX: -subcutaneous Hep -SCDs in place while in bed -PT/OT consult -OOB to chair TID. OTHER: -Consults: SICU, PT/OT -Pertinent PMHx: HTN -Pathology: pending Dispo: ICU, Stepdown status 06/13, transfer to floor 06/14 - Will need enteral tube feed supply - Case management for home health - Plan for discharge today, 06/17 Appointments/Follow-up: Latrice Mi 06/23[facility] [id number] History of Present illness Narrative* Lina Elizabeth MD - 06/16/2024 9:43 AM EDT OTOLARYNGOLOGY HEAD AND NECK SURGERY PROGRESS NOTE SUBJECTIVE NAEON AF VSS, on trach collar Doing well overall. Tolerating TF well. No issues with breathing. Pain well controlled. Having BMs.Patient will continue to have cervantes in for discharge OBJECTIVE Blood pressure 131/72, pulse 69, temperature 98.3 F (36.8 C), temperature source Axillary, resp. rate 18, weight 232 lb (105.2 kg), SpO2 96%. Alert, oriented, no acute distress, comfortable Decannulated Non-labored breathing on RA, in no respiratory distress or no stridor Neck flat, soft, incisions C/D/I No evidence of erythema, fluid collection, dehiscence, or necrosis Tongue midline, shoulder shrug intact [place] tongue bruised Flap: Strong doppler present and biphasic - intraoral skin paddle Warm and appears well perfused with appropriate cap refill. Flap well seated; soft, no dehiscence evident Donor site: Left upper extremity with motor/sensation intact Donor site dressed, no drainage Drains holding suction with ssg output SCDs in place LABORATORY AND IMAGING STUDIES Temperature: [97.9 F (36.6 C)-98.8 F (37.1 C)] 98.3 F (36.8 C) Heart Rate: [69-100] 69 Respiratory Rate: [16-20] 18 BP: (121-150)/(61-74) 131/72 Results for orders placed or performed during the hospital encounter of 06/10/24 (from the past 82806 hour(s)) COMPLETE BLOOD COUNT Collection Time: 06/16/24 1:05 AM Result Value Ref Range WBC 7.4 4.5 - 11.5 K/uL RBC 3.96 (L) 4.50 - 5.90 M/uL Hemoglobin 12.1 (L) 13.9 - 16.3 g/dL Hematocrit 36.5 (L) 41.0 - 53.0 % MCV 92 80 - 100 fL MCH 30.5 26.0 - 34.0 pg MCHC 33.1 32.0 - 35.9 g/dL Platelet 216 150 - 400 K/uL RDW-CV 15.2 (H) 11.5 - 14.5 % MPV 8.3 7.5 - 11.2 fL *Note: Due to a large number of results and/or encounters for the requested time period, some results have not been displayed. A complete set of results can be found in Results Review. Fluid Management (24hrs): Intake/Output last 3 shifts: Date 06/16/24 0700 - 06/17/24 0659 Shift [id number] 8181-4271 5358-1048 24 Hour Total INTAKE P.O. 0 0 NG / GT 510 510 Shift Total(mL/kg) 510(4.8) 510(4.8) OUTPUT Urine(mL/kg/hr) 50 50 Drainage 0 0 Shift Total(mL/kg) 50(0.5) 50(0.5) Weight (kg) 105.2 105.2 105.2 105.2 ASSESSMENT Admitted Diagnosis: squamous cell carcinoma of tongue Surgeon(s): Latrice Mi 6 Days Post-Op 74 yo male with tongue cancer, now POD 3 s/p trach, resection of tongue SCCa, neck dissection, and reconstruction with radial forearm free tissue transfer and tracheostomy on 06/10/2024 Flap Intraoral skin paddle Doppler: internal Donor Site: left radial forearm PLAN HEENT: -Q4H dopplers per nursing and Q24H resident flap check -DC all drains for discharge -ASA 81 mg x 7 days per flap protocol -Bacitracin to incisions TID x 3 days, then switch to vaseline TID x 14 days - Vaseline for his lips AIRWAY/PULM: -Decannulated -Wean O2 as tolerated -Standard trach care/suctioning/teaching -IS NEURO/ANALGESIA: -Oxycodone 5/10 q6 prn -Scheduled acetaminophen ID: -Unasyn x 4 days (End 06/14) -Trend daily labs CARDS: -HDS, monitor H/H -Transfuse for Hgb < 7 - Discontinued arterial line on POD1 : - Voiding spontaneously -Monitor urine output FEN/GI: -Strict NPO with TFs via DHT; home bolus TF -Zofran, PPI -PO trial when cleared by ENT -Senna BID ENDO: -Monitor blood glucose -Replace lytes PRN EXTREM: -Bolster down on 06/16 -Split thickness dressing down on 06/15 -OT customized wrist splint for left wrist -Bacitracin to incisions TID for 3 days, then switch to vaseline. PPX: -subcutaneous Hep -SCDs in place while in bed -PT/OT consult -OOB to chair TID. OTHER: -Consults: SICU, PT/OT -Pertinent PMHx: HTN -Pathology: pending Dispo: ICU, Stepdown status 06/13, transfer to floor 06/14 - Will need enteral tube feed supply - Case management for home health - Plan for discharge today, 06/17 Appointments/Follow-up: Latrice Mi 06/23 * Trinidad Mosqueda RN - 06/16/2024 9:00 AM EDT Home Trach Supplies: Suction pump, home model portable (E0600) Trachel suction tube (A4624) Size: (Please indicate size of Gabbie) Canister, disposable, for pump (A7000) Tubing used w/hciqnp7t pump (A7002) Oropharyngeal suction cath, each (A4628) 50 PSI Compressor (E0565) Trach size (indicate size here) cuffless shiley, 2 per month (E1399) Large velcro ties, 4 per month (E1399) Saline bottle, 1 Liter, 2 per week (8 per month) *Not a DME order, to be prescribed as a medicationorder* 1-5 delivered the bedside 6-8 delivered to the home once patient is home 9 to be filled at pharmacy IF SUCTION MACHINE IS BEING ORDERED MDS TO PLEASE ORDER, USING 'DME SUCTION MACHINE ORDER SET. This order will populate everything except the 50 PSI compressor as that is its own order (E0565) as noted above. * Nasrin Loya RN - 06/16/2024 12:58 AM EDT 0045: Pt transferred to via bed with RNx2. Report given to Rosetta GARZA. All belongings taken with pt at time of transfer. Pt stated ok to call his family members in the morning regarding his transfer. 0730: Attempted to call pt's x2 at phone number listed in [facility] regarding pt's transfer and wasunable to get through. * Lina Elizabeth MD - 06/15/2024 4:57 PM EDT ENT Flap Check Subjective: Patient doing well. He has been up and out of bed, pain well controlled. Family at bedside with him. Objective: Vitals reviewed in EMR Gen: NAD, AOx3, resting comfortably in bed Face/Neck: All incisions c/d/i, neck soft and flat without evidence of hematoma or fluid collection -Skin paddle intraoral -External doppler with strong arterial signal -Trach in midline position without bleeding or thick tracheal secretions. 4.0 cuffless Shiley with cap on. Oral Cavity: All intraoral incisions c/d/i without evidence of dehiscence -Flap soft and pink with good capillary refill. Left edge of [place] tongue improving Extremities: left arm warm with intact movement and sensation -Left thigh skin graft donor site with dressing down, air drying until 7pm then eucerin/abel application Drains: neck drain in place and holding suction with serosanguinous drainage (stripped) Assessment/Plan: Quirino Cordero is a 74 yo male with tongue cancer, now s/p trach, resection of tongue SCCa, neck dissection, and reconstruction with radial forearm free tissue transfer and tracheostomy on 06/10/2024 -Continue nursing flap checks -Continue resident q12hr flap checks until 9/3 PM. Change to resident q24hr flap checks ENT [id number] * MarvinDarling ignacio, AIRPLANE CLEANER - 06/15/2024 2:05 PM EDT 06/15/24 1403 Assessment and Discharge Planning Evaluation READMISSION LESS THAN 30 DAYS No READMISSION RISK SCORE IS Rising Risk INTERVIEWED Family;Patient Name Spouse Gianna and daughter Susana [phone] COGNITIVE STATUS Oriented FUNCTIONAL STATUS PRIOR TO ADMISSION Ambulatory HAS ADVANCE DIRECTIVE ON FILE No LIVING SITUATION Home with Family CONNECTED TO MENTAL HEALTH SERVICES No CONNECTED TO COMMUNITY SERVICES No CONNECTED TO SUBSTANCE ABUSE SERVICES No ADMISSION INSURANCE Medicare;Other (comment) Medicare Traditional TRANSPORTATION TO AND/OR FROM APPOINTMENTS Drives Self;Family/Friend Provides Ride HOME OXYGEN No HOME HEALTH CARE PRIOR TO ADMISSION No DIALYSIS No DISCUSSSED WHAT HELP PATIENT WOULD NEED Yes DISCHARGE DISPOSITION DC Home w HH SW/CM aware that patient meets criteria for HHC. Spoke with pt/pt's family. Patient/pt's family open and agreeable to HHC. CM/SW provided pt/pt's family the quality and resource use measure data from available post-acute (PAC) providers, that best align with the patient's treatment goals and preferences from the medicare.gov compare site for HHC. [place] of Choice was provided to the patient/patient passenger service representative. Pt/pt's family agreeable to referral to in-network HHC agencies. HHC referrals initiated for SN (trach care, tube feed management). For Home Health Care Order a CON 196 must be placed following these recommendations: Discharge Tab>Order Reconciliation>New Orders for discharge>Additional discharge>CON 196. Include services ordered and attending MD must sign. ALSO, PER NEW MEDICARE GUIDELINES PLEASE INCLUDE THE FOLLOWING DOCUMENTATION IN PROGRESS NOTE, DC SUMMARY, OR HHC ORDER FOR PATIENT TO QUALIFY FOR HOMECARE: What are the specific clinical findings (not the diagnosis) which support the need for the selectedskilled services ordered. Include findings that support the patient is homebound, which include the need for any assistance of others and the use of assistive devices. What makes leaving home a considerable and taxing effort? Home Trach Supplies: Suction pump, home model portable (E0600) Trachel suction tube (A4624) Size: (Please indicate size of [place]) Canister, disposable, for pump (A7000) Tubing used w/ejaylr7t pump (A7002) Oropharyngeal suction cath, each (A4628) 50 PSI Compressor (E0565) Trach size (indicate size here) cuffless shiley, 2 per month (E1399) Large velcro ties, 4 per month (E1399) Saline bottle, 1 Liter, 2 per week (8 per month) *Not a DME order, to be prescribed as a medicationorder* 1-5 delivered the bedside 6-8 delivered to the home once patient is home 9 to be filled at pharmacy IF SUCTION MACHINE IS BEING ORDERED MDS TO PLEASE ORDER, USING 'DME SUCTION MACHINE ORDER SET. This order will populate everything except the 50 PSI compressor as that is its own order (E0565) as noted above. Plan: Awaiting confirmation on [facility] agency acceptance. Physician to please place EEV032 order for SN. If pt will have trach at DC physician to please order necessary trach supplies as well. Dietitian to assist with arranging home tubefeeds. MARGARET Almonte LISW 15:07 ADDENDUM [facility] anticipates acceptance. [facility] agency to be updated when it is confirmed if pt will DC with trach and date of DC. Team to place [facility] [id number] order. MARGARET Almonte LISW * Lina Elizabeth MD - 06/15/2024 7:58 AM EDT OTOLARYNGOLOGY HEAD AND NECK SURGERY PROGRESS NOTE SUBJECTIVE NAEON AF VSS, on trach collar Doing well overall. Tolerating TF well. No issues with breathing. Pain well controlled. Having BMs.Patient will continue to have cervantes in until tomorrow. OBJECTIVE Blood pressure 137/72, pulse 67, temperature 98.7 F (37.1 C), temperature source Oral, resp. rate 18, weight 232 lb (105.2 kg), SpO2 97%. Alert, oriented, no acute distress, comfortable 6-0 [address]uffed [address] trach in place and patent, cuff down, no bleeding Non-labored breathing on trach collar, in no respiratory distress or no stridor Neck flat, soft, incisions C/D/I No evidence of erythema, fluid collection, dehiscence, or necrosis Tongue midline, shoulder shrug intact [place] tongue bruised Flap: Strong doppler present and biphasic - intraoral skin paddle Warm and appears well perfused with appropriate cap refill. Flap well seated; soft, no dehiscence evident Donor site: Left upper extremity with motor/sensation intact Donor site dressed, no drainage Drains holding suction with ssg output SCDs in place LABORATORY AND IMAGING STUDIES Temperature: [97.6 F (36.4 C)-98.9 F (37.2 C)] 98.7 F (37.1 C) Heart Rate: [64-109] 67 Respiratory Rate: [11-30] 18 BP: (119-164)/(56-97) 137/72 Results for orders placed or performed during the hospital encounter of 06/10/24 (from the past 73218 hour(s)) COMPLETE BLOOD COUNT Collection Time: 06/15/24 2:53 AM Result Value Ref Range WBC 6.8 4.5 - 11.5 K/uL RBC 4.34 (L) 4.50 - 5.90 M/uL Hemoglobin 13.0 (L) 13.9 - 16.3 g/dL Hematocrit 39.9 (L) 41.0 - 53.0 % MCV 92 80 - 100 fL MCH 29.8 26.0 - 34.0 pg MCHC 32.5 32.0 - 35.9 g/dL Platelet 193 150 - 400 K/uL RDW-CV 15.1 (H) 11.5 - 14.5 % MPV 8.7 7.5 - 11.2 fL *Note: Due to a large number of results and/or encounters for the requested time period, some results have not been displayed. A complete set of results can be found in Results Review. Fluid Management (24hrs): Intake/Output last 3 shifts: ASSESSMENT Admitted Diagnosis: squamous cell carcinoma of tongue Surgeon(s): Latrice Mi 5 Days Post-Op 74 yo male with tongue cancer, now POD 3 s/p trach, resection of tongue SCCa, neck dissection, and reconstruction with radial forearm free tissue transfer and tracheostomy on 06/10/2024 Flap Intraoral skin paddle Doppler: internal and external Donor Site: left radial forearm PLAN HEENT: -Q4H dopplers per nursing and Q12H resident flap check -ROBERTH Drains to bulb suction; monitor output and strip q4H; plan to remove after POD3 when output appropriate -ASA 81 mg x 7 days per flap protocol -Bacitracin to incisions TID x 3 days, then switch to vaseline TID x 14 days - Vaseline for his lips AIRWAY/PULM: -6.0 cuffed Shiley -> will change this morning to 4.0 cuffless Shiley with cap -Humidified trach collar at all times -Wean O2 as tolerated -Standard trach care/suctioning/teaching -IS - Routine trach care - Keep plastic obturator (should be in small biohazard bag) in patient's room at all times in case of accidental decannulation. Obturators can help replace tracheostomies if they fall out, especiallyin the early post-operative period. To use them, take out the inner cannula (plastic inner tubing that clips onto trach) and put the obturator in. Once trach is replaced, promptly remove the obturator and replace it with the inner cannula. NEURO/ANALGESIA: -Oxycodone 5/10 q6 prn -Scheduled acetaminophen ID: -Unasyn x 4 days (End 06/14) -Trend daily labs CARDS: -HDS, monitor H/H -Transfuse for Hgb < 7 - Discontinued arterial line on POD1 : - Voiding spontaneously -Monitor urine output FEN/GI: -Strict NPO with TFs via DHT; home bolus TF today -Zofran, PPI -PO trial when cleared by ENT -Senna BID ENDO: -Monitor blood glucose -Replace lytes PRN EXTREM: -Bolster down on 06/16 -Split thickness dressing down on 06/15 -> open to air for 4 hrs and then Eucerin/Aquaphor TID -Bacitracin to incisions TID for 3 days, then switch to vaseline. PPX: -subcutaneous Hep -SCDs in place while in bed -PT/OT consult -OOB to chair TID. OTHER: -Consults: SICU, PT/OT -Pertinent PMHx: HTN -Pathology: pending Dispo: ICU, Stepdown status 06/13, transfer to floor 06/14 - Will need trach supplies, enteral tube feeds - Case management for home health vs SNF placement - Plan for discharge around 06/16-06/17 Appointments/Follow-up: Latrice Mi 06/23 * Nusrat Fong MD - 06/14/2024 12:23 PM EDT Images from the original note were not included. GENERAL INFORMATION SURGICAL ICU - STAFF NOTE Patient seen and examined on 06/14/2024 Patient Name: Quirino Cordero Admission Date: 06/10/2024 INTERVAL HISTORY/EVENTS Background: 74 M pmh HLD, HTN, tongue SCCA now s/p trach, resection of tongue SCCa, neck dissection with radialforearm free flap reconstruction on 06/10. Admitted to ICU post op for airway monitoring and flap checks. Hospital Course: 06/10: Tracheostomy, resection of tongue SCCa, neck dissection with radial forearm free flap reconstruction with ENT (Latrice). Admitted to ICU post op for airway monitoring and flap checks. Tolerated trach collar overnight. 06/11: No acute events throughout the day. Initiated tube feeds -- tolerating well. Skilled for homeby PT/OT. 06/12: Transitioned to PO pain meds. Q2H flap checks. Cervantes removed. A line removed. 24 Hour Events: Q3H flap checks. TF boluses started. No acute events overnight. Straight catheterized this morning on rounds with 800cc output. UO: 750 + 5x occurrence Drains: ROBERTH 1: 17.5 (10) ROBERTH 2: 15 (10) ROBERTH 3: 40 (20) PHYSICAL EXAM Vital Signs: Vital sign ranges over the past 24 hours (retrieved 06/14/2024 at 12:23 PM): Tmax (24 hours): 98.6 F (37 C) Pulse Av.6 Min: 59 Max: 96 Systolic (24hrs), Av , Min:130 , Max:167 Diastolic (24hrs), Av, Min:75, Max:97 MAP (mmHg) Av.6 mmHg Min: 91 mmHg Max: 119 mmHg Resp Av.4 Min: 11 Max: 30 SpO2 Av.8 % Min: 92 % Max: 98 % 24 Hour Input/Output In: 1170 (11.1 mL/kg) [I.V.:50 (0 mL/kg/hr)] Out: 822.5 (7.8 mL/kg) [Urine:750 (0.3 mL/kg/hr); Drainage:72.5] Net: 347.5 Weight: 105.2 kg PHYSICAL EXAM Constituational: No acute distress. Sitting up in bed. HEENT: Free flap intact. ROBERTH x 2 with serosanguinous output. Tracheostomy intact without drainage orbleeding. Neck incision c/d/I. Cardiovascular: Regular rate and rhythm. Pulmonary: Clear to auscultation bilaterally. On trach collar. Abdominal: Soft. Non-distended. Non-tender. Musculoskeletal: L forearm in are wrap. ROBERTH with serosanguinous output. LLE donor skin site with dressing in place without strikethrough Neurological: Alert, awake, and oriented x 3. Motor and sensory grossly intact. LABORATORY RESULTS (LAST 24 HOURS) CBC/PT/INR 06/14/2024 5:04 AM WBC 8.6 RBC 4.46 Hgb 13.6 Hct 40.8 MCV 92 RDW 14.6 Plt 190 Basic Metabolic Panel 06/14/2024 06/14/2024 5:28 AM 5:04 AM Na -- 137 K -- 4.1 Cl -- 104 CO2 -- 24 Gap -- 13 Glu -- 108 BUN -- 18 Cr -- 0.85 Ca -- 8.8 Mg 2.1 -- PO4 3.2 -- IMAGING RESULTS (PERSONALLY REVIEWED) No imaging over the last 24 hours. ASSESSMENT & PLAN Diagnosis s/p tracheostomy tube placement, resection of tongue SCCa, neck dissection with radial forearm free flap reconstruction, and split thickness skin graft application: PMHx SCC of tongue MDD HTN HLD Plan: Neurological: - Tylenol 1000mg Q8H, 5/10mg oxycodone Q6H PRN and Dilauded 0.2mg for breakthrough pain. - Home buspar 10 mg daily HEENT: - Per ENT: -Q4H flap check and dopplers per nursing and Q6H ENT resident flap check -ROBERTH Drains to bulb suction; monitor output and strip q4H; plan to remove after POD3 when output appropriate -ASA 81 mg x 7 days per flap protocol -Bacitracin to incisions TID x 3 days, then switch to vaseline TID x 14 days -Chlorhexidine swabs to mouth by nursing - Vaseline for lips Cardiovascular: - Hemodynamically stable - Continue home ASA 81mg, Metoprolol 25mg BID, Atrovastatin 80mg Respiratory: - Tolerating trach collar - ENT postop recs: -6.0 cuffed Shiley -> tentative plan for trach change on POD 5 to 4.0 cuffless Shiley -Humidified trach collar at all times -Wean O2 as tolerated -Standard trach care/suctioning/teaching - Routine trach care - Keep plastic obturator (should be in small biohazard bag) in patient's room at all times in case of accidental decannulation. See ENT note for instructions. - Keep extra trach (6-0 cuffed Shiley) bedside for emergencies GI/Diet: -Strict NPO with TFs via DHT; TF boluses started yesterday. Nutrition following. -Zofran -PO trial when cleared by ENT -Senna BID Renal/Electrolytes: - LR @ 75mL/hr - Monitor UOP - Start Cardura for urinary retention - Daily BMP, Mg, Phos -- replete lytes PRN ID: - WBC 8.6 (7.5) - Surgical prophylaxis with Unasyn per primary (ends 06/14) Heme: - Hgb 13.6 (11.5), continue to monitor with daily CBCs. - Transfusion goal hgb >7 Endocrine: -No history of DMII; no active issues MSK: - PT: recommend him to be seen 3-5x/week - OT: recommend 1-3x/week - Bolster down/wound vac down on 06/16 - Split thickness dressing down on 06/15 -> open to air for 4 hrs and then Eucerin/Aquaphor TID - Bacitracin to incisions TID for 3 days, then switch to vaseline. Tubes, Lines, and Drains: 6.0 cuffed shiley tracheostomy Neck ROBERTH x2 L arm ROBERTH PIV x2 Prophylaxis: - DVT: SQH 5000 Q8H and SCDs - GI ppx: no indication for prophylaxis Dispo: POD4 - Transfer to floor Follow Up: ENT Nusrat Fong MD SICU Resident General Surgery PGY-1 Associated attestation - Garth Velázquez MD - 06/14/2024 4:45 PM EDT I have personally seen and examined the patient with the team and nursing staff at the patient's bedside. I have reviewed recent data and reports. I have also reviewed lab values, imaging, and current medications profile. I discussed my findings with the team. I reviewed the full note by the resident with the detailed findings, and I agree with the assessment, overall impression, and plan of care. We have also updated the patient or any available family as well as other services with our care plan. Total Critical Care Time 35 minutes Garth Velázquez MD * Epifanio Dawkins MD - 06/14/2024 8:43 AM EDT OTOLARYNGOLOGY HEAD AND NECK SURGERY PROGRESS NOTE SUBJECTIVE NAEON AF VSS, on trach collar Doing well overall. Tolerating TF well. No issues with breathing. Pain well controlled OBJECTIVE Blood pressure 167/97, pulse 96, temperature 98.1 F (36.7 C), temperature source Axillary, resp. rate 21, weight 232 lb (105.2 kg), SpO2 98%. Alert, oriented, no acute distress, comfortable 6-0 cuffed Shiley trach in place and patent, cuff down, no bleeding Non-labored breathing on trach collar, in no respiratory distress or no stridor Neck flat, soft, incisions C/D/I No evidence of erythema, fluid collection, dehiscence, or necrosis Tongue midline, shoulder shrug intact [place] tongue bruised Flap: Strong doppler present and biphasic - intraoral skin paddle Warm and appears well perfused with appropriate cap refill. Flap well seated; soft, no dehiscence evident Donor site: Left upper extremity with motor/sensation intact Donor site dressed, no drainage Drains holding suction with ssg output SCDs in place LABORATORY AND IMAGING STUDIES Temperature: [97.6 F (36.4 C)-98.2 F (36.8 C)] 98.1 F (36.7 C) Heart Rate: [57-96] 96 Respiratory Rate: [10-21] 21 BP: (130-167)/(75-97) 167/97 Results for orders placed or performed during the hospital encounter of 06/10/24 (from the past 21738 hour(s)) COMPLETE BLOOD COUNT Collection Time: 06/14/24 5:04 AM Result Value Ref Range WBC 8.6 4.5 - 11.5 K/uL RBC 4.46 (L) 4.50 - 5.90 M/uL Hemoglobin 13.6 (L) 13.9 - 16.3 g/dL Hematocrit 40.8 (L) 41.0 - 53.0 % MCV 92 80 - 100 fL MCH 30.6 26.0 - 34.0 pg MCHC 33.4 32.0 - 35.9 g/dL Platelet 190 150 - 400 K/uL RDW-CV 14.6 (H) 11.5 - 14.5 % MPV 8.6 7.5 - 11.2 fL *Note: Due to a large number of results and/or encounters for the requested time period, some results have not been displayed. A complete set of results can be found in Results Review. Fluid Management (24hrs): Intake/Output last 3 shifts: Date 06/14/24 0700 - 06/15/24 0659 Shift 5918-1084 3631-6466 9425-1796 24 Hour Total INTAKE NG / GT 15 15 Shift Total(mL/kg) 15(0.1) 15(0.1) OUTPUT Shift Total(mL/kg) Weight (kg) 105.2 105.2 105.2 105.2 ASSESSMENT Admitted Diagnosis: squamous cell carcinoma of tongue Surgeon(s): Latrice Mi 4 Days Post-Op 74 yo male with tongue cancer, now POD 3 s/p trach, resection of tongue SCCa, neck dissection, and reconstruction with radial forearm free tissue transfer and tracheostomy on 06/10/2024 Flap Intraoral skin paddle Doppler: internal and external Donor Site: left radial forearm PLAN HEENT: -Q4H dopplers per nursing and Q12H resident flap check -ROBERTH Drains to bulb suction; monitor output and strip q4H; plan to remove after POD3 when output appropriate -ASA 81 mg x 7 days per flap protocol -Bacitracin to incisions TID x 3 days, then switch to vaseline TID x 14 days - Vaseline for his lips AIRWAY/PULM: -6.0 cuffed Shiley -> tentative plan for trach change on POD 5 to 4.0 cuffless Shiley -Humidified trach collar at all times -Wean O2 as tolerated -Standard trach care/suctioning/teaching -IS - Routine trach care - Keep plastic obturator (should be in small biohazard bag) in patient's room at all times in case of accidental decannulation. Obturators can help replace tracheostomies if they fall out, especiallyin the early post-operative period. To use them, take out the inner cannula (plastic inner tubing that clips onto trach) and put the obturator in. Once trach is replaced, promptly remove the obturator and replace it with the inner cannula. - Keep extra trach (6-0 cuffed Shiley) bedside for emergencies NEURO/ANALGESIA: -Oxycodone 5/10 q6 prn -Scheduled acetaminophen ID: -Unasyn x 4 days (End 06/14) -Trend daily labs CARDS: -HDS, monitor H/H -Transfuse for Hgb < 7 - Discontinued arterial line on POD1 : - Voiding spontaneously -Monitor urine output FEN/GI: -Strict NPO with TFs via DHT; bolus TF today -Zofran, PPI -PO trial when cleared by ENT -Senna BID ENDO: -Monitor blood glucose -Replace lytes PRN EXTREM: -Bolster down/wound vac down on 06/16 -Split thickness dressing down on 06/15 -> open to air for 4 hrs and then Eucerin/Aquaphor TID -Bacitracin to incisions TID for 3 days, then switch to vaseline. PPX: -subcutaneous Hep -SCDs in place while in bed -PT/OT consult -OOB to chair TID. OTHER: -Consults: SICU, PT/OT -Pertinent PMHx: HTN -Pathology: pending Dispo: ICU, Stepdown status 06/13, transfer to floor 06/14 - Will need trach supplies, enteral tube feeds - Case management for home health vs SNF placement - Plan for discharge around 06/16-06/17 Appointments/Follow-up: Latrice Mi 06/23 * Nusrat Fong MD - 06/14/2024 6:42 AM EDT Images from the original note were not included. GENERAL INFORMATION SURGICAL ICU - STAFF NOTE Patient seen and examined on 06/14/2024 Patient Name: Quirino Cordero Admission Date: 06/10/2024 INTERVAL HISTORY/EVENTS Background: 74 M pmh HLD, HTN, tongue SCCA now s/p trach, resection of tongue SCCa, neck dissection with radialforearm free flap reconstruction on 06/10. Admitted to ICU post op for airway monitoring and flap checks. Hospital Course: 06/10: Tracheostomy, resection of tongue SCCa, neck dissection with radial forearm free flap reconstruction with ENT (Latrice). Admitted to ICU post op for airway monitoring and flap checks. Tolerated trach collar overnight. 06/11: No acute events throughout the day. Initiated tube feeds -- tolerating well. Skilled for homeby PT/OT. 06/12: Transitioned to PO pain meds. Q2H flap checks. Cervantes removed. A line removed. 24 Hour Events: Q3H flap checks. TF boluses started. No acute events overnight. Straight catheterized this morning on rounds with 800cc output. UO: 750 + 5x occurrence Drains: ROBERTH 1: 17.5 (10) ROBERTH 2: 15 (10) ROBERTH 3: 40 (20) PHYSICAL EXAM Vital Signs: Vital sign ranges over the past 24 hours (retrieved 06/14/2024 at 6:42 AM): Tmax (24 hours): 98.2 F (36.8 C) Pulse Av.6 Min: 57 Max: 96 Systolic (24hrs), Av , Min:130 , Max:167 Diastolic (24hrs), Av, Min:75, Max:97 MAP (mmHg) Av.4 mmHg Min: 90 mmHg Max: 119 mmHg Resp Av.1 Min: 10 Max: 21 SpO2 Av.4 % Min: 92 % Max: 98 % 24 Hour Input/Output In: 2290 (21.8 mL/kg) [I.V.:750 (0.3 mL/kg/hr)] Out: 1097.5 (10.4 mL/kg) [Urine:1025 (0.4 mL/kg/hr); Drainage:72.5] Net: 1192.5 Weight: 105.2 kg PHYSICAL EXAM Constituational: No acute distress. Sitting up in bed. HEENT: Free flap intact. ROBERTH x 2 with serosanguinous output. Tracheostomy intact without drainage orbleeding. Neck incision c/d/I. Cardiovascular: Regular rate and rhythm. Pulmonary: Clear to auscultation bilaterally. On trach collar. Abdominal: Soft. Non-distended. Non-tender. Musculoskeletal: L forearm in are wrap. ROBERTH with serosanguinous output. LLE donor skin site with dressing in place without strikethrough Neurological: Alert, awake, and oriented x 3. Motor and sensory grossly intact. LABORATORY RESULTS (LAST 24 HOURS) CBC/PT/INR 06/14/2024 5:04 AM WBC 8.6 RBC 4.46 Hgb 13.6 Hct 40.8 MCV 92 RDW 14.6 Plt 190 Basic Metabolic Panel 06/14/2024 06/14/2024 5:28 AM 5:04 AM Na -- 137 K -- 4.1 Cl -- 104 CO2 -- 24 Gap -- 13 Glu -- 108 BUN -- 18 Cr -- 0.85 Ca -- 8.8 Mg 2.1 -- PO4 3.2 -- IMAGING RESULTS (PERSONALLY REVIEWED) No imaging over the last 24 hours. ASSESSMENT & PLAN Diagnosis s/p tracheostomy tube placement, resection of tongue SCCa, neck dissection with radial forearm free flap reconstruction, and split thickness skin graft application: PMHx SCC of tongue MDD HTN HLD Plan: Neurological: - Tylenol 1000mg Q8H, 5/10mg oxycodone Q6H PRN and Dilauded 0.2mg for breakthrough pain. - Home buspar 10 mg daily HEENT: - Per ENT: -Q4H flap check and dopplers per nursing and Q6H ENT resident flap check -ROBERTH Drains to bulb suction; monitor output and strip q4H; plan to remove after POD3 when output appropriate -ASA 81 mg x 7 days per flap protocol -Bacitracin to incisions TID x 3 days, then switch to vaseline TID x 14 days -Chlorhexidine swabs to mouth by nursing - Vaseline for lips Cardiovascular: - Hemodynamically stable - Continue home ASA 81mg, Metoprolol 25mg BID, Atrovastatin 80mg Respiratory: - Tolerating trach collar - ENT postop recs: -6.0 cuffed Shiley -> tentative plan for trach change on POD 5 to 4.0 cuffless Shiley -Humidified trach collar at all times -Wean O2 as tolerated -Standard trach care/suctioning/teaching - Routine trach care - Keep plastic obturator (should be in small biohazard bag) in patient's room at all times in case of accidental decannulation. See ENT note for instructions. - Keep extra trach (6-0 cuffed Shiley) bedside for emergencies GI/Diet: -Strict NPO with TFs via DHT; TF boluses started yesterday. Nutrition following. -Zofran -PO trial when cleared by ENT -Senna BID Renal/Electrolytes: - LR @ 75mL/hr - Monitor UOP - Daily BMP, Mg, Phos -- replete lytes PRN ID: - WBC 8.6 (7.5) - Surgical prophylaxis with Unasyn per primary (ends 06/14) Heme: - Hgb 13.6 (11.5), continue to monitor with daily CBCs. - Transfusion goal hgb >7 Endocrine: -No history of DMII; no active issues MSK: - PT: recommend him to be seen 3-5x/week - OT: recommend 1-3x/week - Sheldon down/wound vac down on 06/16 - Split thickness dressing down on 06/15 -> open to air for 4 hrs and then Eucerin/Aquaphor TID - Bacitracin to incisions TID for 3 days, then switch to vaseline. Tubes, Lines, and Drains: 6.0 cuffed shiley tracheostomy Neck ROBERTH x2 L arm ROBERTH PIV x2 Prophylaxis: - DVT: SQH 5000 Q8H and SCDs - GI ppx: no indication for prophylaxis Dispo: POD4 - Transfer to floor Follow Up: ENT Nusrat Fong MD SICU Resident General Surgery PGY-1 Associated attestation - Garth Velázquez MD - 06/15/2024 8:53 AM EDT I have personally seen and examined the patient with the team and nursing staff at the patient's bedside. I have reviewed recent data and reports. I have also reviewed lab values, imaging, and current medications profile. I discussed my findings with the team. I reviewed the full note by the resident with the detailed findings, and I agree with the assessment, overall impression, and plan of care. We have also updated the patient or any available family as well as other services with our care plan. Total Critical Care Time 35 minutes Garth Velázquez MD * Evelyn Grimm MD - 06/13/2024 7:00 PM EDT ENT Flap Check Subjective: Patient doing well, sitting in chair. Pain controlled. Voiding independently without issue. Objective: Vitals reviewed in EMR Gen: NAD, AOx3, resting comfortably in bed Face/Neck: All incisions c/d/i, neck soft and flat without evidence of hematoma or fluid collection -Skin paddle intraoral well perfused and pink -External doppler with strong arterial signal -Trach in midline position without bleeding or thick tracheal secretions Oral Cavity: All intraoral incisions c/d/i without evidence of dehiscence -Flap soft and pink with good capillary refill. Left edge of [place] tongue with darker discoloration which is improved from prior exam, mild white plaques on superficial anterior [place] tongue Extremities: left arm warm with intact movement and sensation -Left thigh skin graft donor site with tegaderm in place Drains: All drains in place and holding suction with serosanguinous drainage (stripped) Assessment/Plan: Quirino Cordero is a 74 yo male with tongue cancer, now s/p trach, resection of tongue SCCa, neck dissection, and reconstruction with radial forearm free tissue transfer and tracheostomy on 06/10/2024 -Continue nursing flap checks -Continue q12hr flap checks -F/u void trial ENT [id number] * Landon Pino MD - 06/13/2024 7:59 AM EDT OTOLARYNGOLOGY HEAD AND NECK SURGERY PROGRESS NOTE SUBJECTIVE NAEON AF VSS, on trach collar Doing well overall. Tolerating TF well. No issues with breathing. Pain well controlled OBJECTIVE Blood pressure 148/74, pulse 70, temperature 98.2 F (36.8 C), temperature source Axillary, resp. rate 20, weight 232 lb (105.2 kg), SpO2 89%. Alert, oriented, no acute distress, comfortable 6-0 cuffed Shiley trach in place and patent, cuff down, no bleeding Non-labored breathing on trach collar, in no respiratory distress or no stridor Neck flat, soft, incisions C/D/I No evidence of erythema, fluid collection, dehiscence, or necrosis Tongue midline, shoulder shrug intact [place] tongue bruised Flap: Strong doppler present and biphasic - intraoral skin paddle Warm and appears well perfused with appropriate cap refill. Flap well seated; soft, no dehiscence evident Donor site: Left upper extremity with motor/sensation intact Donor site dressed, no drainage Drains holding suction with ssg output SCDs in place LABORATORY AND IMAGING STUDIES Temperature: [98.2 F (36.8 C)-98.7 F (37.1 C)] 98.2 F (36.8 C) Heart Rate: [60-80] 70 Respiratory Rate: [9-21] 20 BP: (116-156)/(61-80) 148/74 Arterial BP: (144-166)/(69-81) 152/71 Results for orders placed or performed during the hospital encounter of 06/10/24 (from the past 31783 hour(s)) COMPLETE BLOOD COUNT Collection Time: 06/13/24 5:31 AM Result Value Ref Range WBC 7.5 4.5 - 11.5 K/uL RBC 3.72 (L) 4.50 - 5.90 M/uL Hemoglobin 11.5 (L) 13.9 - 16.3 g/dL Hematocrit 34.5 (L) 41.0 - 53.0 % MCV 93 80 - 100 fL MCH 30.8 26.0 - 34.0 pg MCHC 33.3 32.0 - 35.9 g/dL Platelet 169 150 - 400 K/uL RDW-CV 15.1 (H) 11.5 - 14.5 % MPV 9.1 7.5 - 11.2 fL *Note: Due to a large number of results and/or encounters for the requested time period, some results have not been displayed. A complete set of results can be found in Results Review. Fluid Management (24hrs): Intake/Output last 3 shifts: Date 06/13/24 0700 - 06/14/24 0659 Shift 5829-0525 3461-2106 2918-6916 24 Hour Total INTAKE I.V.(mL/kg/hr) 75 75 NG / GT 60 60 Shift Total(mL/kg) 135(1.3) 135(1.3) OUTPUT Urine(mL/kg/hr) 125 125 Shift Total(mL/kg) 125(1.2) 125(1.2) Weight (kg) 105.2 105.2 105.2 105.2 ASSESSMENT Admitted Diagnosis: squamous cell carcinoma of tongue Surgeon(s): Latrice Mi 3 Days Post-Op 74 yo male with tongue cancer, now POD 3 s/p trach, resection of tongue SCCa, neck dissection, and reconstruction with radial forearm free tissue transfer and tracheostomy on 06/10/2024 Flap Intraoral skin paddle Doppler: internal and external Donor Site: left radial forearm PLAN HEENT: -Q3H dopplers per nursing and Q6H resident flap check -ROBERTH Drains to bulb suction; monitor output and strip q4H; plan to remove after POD3 when output appropriate -ASA 81 mg x 7 days per flap protocol -Bacitracin to incisions TID x 3 days, then switch to vaseline TID x 14 days - Vaseline for his lips AIRWAY/PULM: -6.0 cuffed Shiley -> tentative plan for trach change on POD 5 to 4.0 cuffless Shiley -Humidified trach collar at all times -Wean O2 as tolerated -Standard trach care/suctioning/teaching -IS - Routine trach care - Keep plastic obturator (should be in small biohazard bag) in patient's room at all times in case of accidental decannulation. Obturators can help replace tracheostomies if they fall out, especiallyin the early post-operative period. To use them, take out the inner cannula (plastic inner tubing that clips onto trach) and put the obturator in. Once trach is replaced, promptly remove the obturator and replace it with the inner cannula. - Keep extra trach (6-0 cuffed Shiley) bedside for emergencies NEURO/ANALGESIA: -Oxycodone 5/10 q6 prn -Scheduled acetaminophen ID: -Unasyn x 4 days (End 06/14) -Trend daily labs CARDS: -HDS, monitor H/H -Transfuse for Hgb < 7 - Discontinued arterial line on POD1 : - Voiding spontaneously -Monitor urine output FEN/GI: -Strict NPO with TFs via DHT; adv TF today, will bolus once at goal -Zofran, PPI -PO trial when cleared by ENT -Senna BID ENDO: -Monitor blood glucose -Replace lytes PRN EXTREM: -Bolster down/wound vac down on 06/16 -Split thickness dressing down on 06/15 -> open to air for 4 hrs and then Eucerin/Aquaphor TID -Bacitracin to incisions TID for 3 days, then switch to vaseline. PPX: -subcutaneous Hep -SCDs in place while in bed -PT/OT consult -OOB to chair TID. OTHER: -Consults: SICU, PT/OT -Pertinent PMHx: HTN -Pathology: pending Dispo: ICU, Stepdown status 06/13, transfer to floor 06/14 - Will need trach supplies, enteral tube feeds - Case management for home health vs SNF placement - Plan for discharge around 06/16-06/17 Appointments/Follow-up: Latrice Mi 06/23 * Kaitlin Logan MD - 06/13/2024 7:49 AM EDT Images from the original note were not included. GENERAL INFORMATION SURGICAL ICU - STAFF NOTE Patient seen and examined on 06/13/2024 Patient Name: Quirino Cordero Admission Date: 06/10/2024 INTERVAL HISTORY/EVENTS Background: 74 M pmh HLD, HTN, tongue SCCA now s/p trach, resection of tongue SCCa, neck dissection with radialforearm free flap reconstruction on 06/10. Admitted to ICU post op for airway monitoring and flap checks. Hospital Course: 06/10: Tracheostomy, resection of tongue SCCa, neck dissection with radial forearm free flap reconstruction with ENT (Latrice). Admitted to ICU post op for airway monitoring and flap checks. Tolerated trach collar overnight. 06/11: No acute events throughout the day. Initiated tube feeds -- tolerating well. Skilled for homeby PT/OT. 06/12: Transitioned to PO pain meds. Q2H flap checks. Cervantes removed. A line removed. 24 Hour Events: Transitioned to PO pain meds. Q2H flap checks. Cervantes removed. A line removed. UO: 2275 Drains: ROBERTH 1: 10 (20) ROBERTH 2: 10 (35) ROBERTH 3: 20 (55) PHYSICAL EXAM Vital Signs: Vital sign ranges over the past 24 hours (retrieved 06/13/2024 at 7:49 AM): Tmax (24 hours): 98.7 F (37.1 C) Pulse Av.5 Min: 60 Max: 80 Systolic (24hrs), Av , Min:116 , Max:156 Diastolic (24hrs), Av, Min:61, Max:80 MAP (mmHg) Av.6 mmHg Min: 75 mmHg Max: 101 mmHg Resp Av.5 Min: 9 Max: 21 SpO2 Av.4 % Min: 89 % Max: 99 % 24 Hour Input/Output In: 3541.9 (33.7 mL/kg) [I.V.:2201.9 (0.9 mL/kg/hr)] Out: 2315 (22 mL/kg) [Urine:2275 (0.9 mL/kg/hr); Drainage:40] Net: 1226.9 Weight: 105.2 kg PHYSICAL EXAM Constituational: No acute distress. Sitting up in bed. HEENT: Free flap intact. ROBERTH x 2 with serosanguinous output. Tracheostomy intact without drainage orbleeding. Neck incision c/d/I. Cardiovascular: Regular rate and rhythm. Pulmonary: Clear to auscultation bilaterally. On trach collar. Abdominal: Soft. Non-distended. Non-tender. Musculoskeletal: L forearm in are wrap. ROBERTH with serosanguinous output. LLE donor skin site with dressing in place without strikethrough Neurological: Alert, awake, and oriented x 3. Motor and sensory grossly intact. LABORATORY RESULTS (LAST 24 HOURS) CBC/PT/INR 06/13/2024 5:31 AM WBC 7.5 RBC 3.72 Hgb 11.5 Hct 34.5 MCV 93 RDW 15.1 Plt 169 Basic Metabolic Panel 06/13/2024 5:52 AM Na 138 K 4.3 Cl 109 CO2 21 Gap 12 Glu 110 BUN 16 Cr 0.69 Ca 7.1 Mg 1.8 PO4 2.8 IMAGING RESULTS (PERSONALLY REVIEWED) No imaging over the last 24 hours. ASSESSMENT & PLAN Diagnosis s/p tracheostomy tube placement, resection of tongue SCCa, neck dissection with radial forearm free flap reconstruction, and split thickness skin graft application: PMHx SCC of tongue MDD HTN HLD Plan: Neurological: - Tylenol 1000mg Q8H, 5/10mg oxycodone Q6H PRN and Dilauded 0.2mg for breakthrough pain. - Home buspar 10 mg daily HEENT: - Per ENT: -Q2H flap check and dopplers per nursing and Q6H ENT resident flap check -ROBERTH Drains to bulb suction; monitor output and strip q4H; plan to remove after POD3 when output appropriate -ASA 81 mg x 7 days per flap protocol -Bacitracin to incisions TID x 3 days, then switch to vaseline TID x 14 days -Chlorhexidine swabs to mouth by nursing - Vaseline for lips Cardiovascular: - Hemodynamically stable - Continue home ASA 81mg, Metoprolol 25mg BID, Atrovastatin 80mg Respiratory: - Tolerating trach collar overnight on 4L 28% FiO2 - ENT postop recs: -6.0 cuffed Shiley -> tentative plan for trach change on POD 5 to 4.0 cuffless Shiley -Humidified trach collar at all times -Wean O2 as tolerated -Standard trach care/suctioning/teaching - Routine trach care - Keep plastic obturator (should be in small biohazard bag) in patient's room at all times in case of accidental decannulation. See ENT note for instructions. - Keep extra trach (6-0 cuffed Shiley) bedside for emergencies GI/Diet: -Strict NPO with TFs via DHT; Advance TF by 10mL/hr to goal of 70mL/hr. TF currently at 60mL/hr. Nutrition following. -Zofran -PO trial when cleared by ENT -Senarnulfo BID Renal/Electrolytes: - LR @ 75mL/hr - Monitor UOP - Daily BMP, Mg, Phos -- replete lytes PRN ID: - WBC 7.5 (9.3) - Surgical prophylaxis with Unasyn per primary (ends 06/14) Heme: - Hgb 11.5 (12.4), continue to monitor with daily CBCs. - Transfusion goal hgb >7 Endocrine: -No history of DMII; no active issues MSK: - PT: recommend him to be seen 3-5x/week - OT: recommend 1-3x/week - Bolster down/wound vac down on 06/16 - Split thickness dressing down on 06/15 -> open to air for 4 hrs and then Eucerin/Aquaphor TID - Bacitracin to incisions TID for 3 days, then switch to vaseline. Tubes, Lines, and Drains: 6.0 cuffed shiley tracheostomy Neck ROBERTH x2 L arm ROBERTH PIV x2 Prophylaxis: - DVT: SQH 5000 Q8H and SCDs - GI ppx: no indication for prophylaxis Dispo: POD3 - Remain SDU, plan for floor tomorrow Follow Up: ENT Nusrat Fong MD SICU Resident General Surgery PGY-1 Attending Attestation I saw and evaluated Quirino Cordero with the resident. I personally obtained fonseca and critical portions of the history and physical exam. I reviewed the resident's documentation and discussed the patient with the resident and team. I agree with the medical decision making as documented in this note, which are reflective of the plans we discussed. Kaitlin Logan MD * Anthony Foote MD - 06/12/2024 4:50 PM EDT ENT Flap Check Subjective: Patient doing well, sitting in chair. Pain controlled. RN about to remove cervantes. Objective: Vitals reviewed in EMR Gen: NAD, AOx3, resting comfortably in bed Face/Neck: All incisions c/d/i, neck soft and flat without evidence of hematoma or fluid collection -Skin paddle intraoral well perfused and pink -External doppler with strong arterial signal -Trach in midline position without bleeding or thick tracheal secretions Oral Cavity: All intraoral incisions c/d/i without evidence of dehiscence -Flap soft and pink with good capillary refill. Left edge of [place] tongue with darker discoloration. Extremities: left arm warm with intact movement and sensation -Left thigh skin graft donor site with tegaderm in place Drains: All drains in place and holding suction with serosanguinous drainage (stripped) Assessment/Plan: Quirino Cordero is a 74 yo male with tongue cancer, now s/p trach, resection of tongue SCCa, neck dissection, and reconstruction with radial forearm free tissue transfer and tracheostomy on 06/10/2024 -Continue nursing flap checks -Continue q12hr flap checks -F/u void trial ENT [id number] * Kaitlin Logan MD - 06/12/2024 6:19 AM EDT Images from the original note were not included. GENERAL INFORMATION SURGICAL ICU - STAFF NOTE Patient seen and examined on 06/12/2024 Patient Name: Quirino Cordero Admission Date: 06/10/2024 INTERVAL HISTORY/EVENTS Background: 74 M pmh HLD, HTN, tongue SCCA now s/p trach, resection of tongue SCCa, neck dissection with radialforearm free flap reconstruction. Admitted to ICU post op for airway monitoring and flap checks. Hospital Course: 06/10: Tracheostomy, resection of tongue SCCa, neck dissection with radial forearm free flap reconstruction with ENT (Latrice). Admitted to ICU post op for airway monitoring and flap checks. Tolerated trach collar overnight. 06/11: No acute events throughout the day. Initiated tube feeds -- tolerating well. Skilled for homeby PT/OT. 24 Hour Events: No acute events in last 24 hours. No issues with flap checks. Tolerating continuous trach collar. UO: 1304 Drains: ROBERTH 1: 20 (10) ROBERTH 2: 35 (40) ROBERTH 3: 55 (70) PHYSICAL EXAM Vital Signs: Vital sign ranges over the past 24 hours (retrieved 06/12/2024 at 6:19 AM): Tmax (24 hours): 98.8 F (37.1 C) Pulse Av.8 Min: 53 Max: 95 Systolic (24hrs), Av , Min:140 , Max:194 Diastolic (24hrs), Av, Min:58, Max:80 MAP (mmHg) Av.6 mmHg Min: 80 mmHg Max: 106 mmHg Resp Av.7 Min: 8 Max: 28 SpO2 Av.8 % Min: 93 % Max: 100 % 24 Hour Input/Output In: 2668.8 (25.4 mL/kg) [I.V.:2178.8 (0.9 mL/kg/hr)] Out: 4 (19.5 mL/kg) [Urine:1864 (0.7 mL/kg/hr); Drainage:190] Net: 614.8 Weight: 105.2 kg PHYSICAL EXAM Constituational: No acute distress. HEENT: Free flap intact. ROBERTH x 2 with serosanguinous output. Tracheostomy intact without drainage orbleeding. Neck incision c/d/I. Cardiovascular: Regular rate and rhythm. Pulmonary: Clear to auscultation bilaterally. On trach collar. Abdominal: Soft. Non-distended. Non-tender. Musculoskeletal: L forearm in are wrap. ROBERTH with serosanguinous output. LLE donor skin site with dressing in place without strikethrough Neurological: Alert, awake, and oriented x 3. Motor and sensory grossly intact. : concentrated urine in cervantes bag. LABORATORY RESULTS (LAST 24 HOURS) CBC/PT/INR 06/12/2024 4:29 AM WBC 9.3 RBC 4.00 Hgb 12.4 Hct 36.9 MCV 92 RDW 14.8 Plt 162 Basic Metabolic Panel 06/12/2024 4:29 AM Na 139 K 4.1 Cl 107 CO2 26 Gap 10 Glu 121 BUN 20 Cr 0.83 Ca 8.1 Mg 1.9 PO4 2.3 IMAGING RESULTS (PERSONALLY REVIEWED) No imaging over the last 24 hours. ASSESSMENT & PLAN Diagnosis s/p tracheostomy tube placement, resection of tongue SCCa, neck dissection with radial forearm free flap reconstruction, and split thickness skin graft application: PMHx SCC of tongue MDD HTN HLD Plan: Neurological: - Discontinue DRYWALL CONTRACTOR and transition to 5/10mg oxycodone Q6H PRN and Dilauded 0.2mg for breakthrough pain. - Tylenol 1000mg Q8H - Home buspar 10 mg daily HEENT: - Per ENT: -Q2H flap check and dopplers per nursing and Q6H ENT resident flap check -ROBERTH Drains to bulb suction; monitor output and strip q4H; plan to remove after POD3 when output appropriate -ASA 81 mg x 7 days per flap protocol -Bacitracin to incisions TID x 3 days, then switch to vaseline TID x 14 days -Chlorhexidine swabs to mouth by nursing - Vaseline for lips Cardiovascular: - Hemodynamically stable - Continue home ASA 81mg, Metoprolol 25mg BID, Atrovastatin 80mg Respiratory: - Tolerating trach collar overnight on 8L 50% FiO2 - ENT postop recs: -6.0 cuffed Shiley -> tentative plan for trach change on POD 5 to 4.0 cuffless Shiley -Humidified trach collar at all times -Wean O2 as tolerated -Standard trach care/suctioning/teaching - Routine trach care - Keep plastic obturator (should be in small biohazard bag) in patient's room at all times in case of accidental decannulation. See ENT note for instructions. - Keep extra trach (6-0 cuffed Shiley) bedside for emergencies GI/Diet: -Strict NPO with TFs via DHT; Advance TF by 10mL/hr to goal of 70mL/hr. Eventually will be bolus TF. Nutrition following. -Zofran -PO trial when cleared by ENT -Senna BID; add docusate and Miralax after POD 3 if no BM Renal/Electrolytes: - Remove cervantes - LR @ 75mL/hr - Monitor UOP - Daily BMP, Mg, Phos -- replete lytes PRN ID: - WBC 9.3 - surgical prophylaxis with Unasyn per primary Heme: - Hgb 12.4 - Transfusion goal hgb >7 Endocrine: -No history of DMII; no active issues MSK: - PT: recommend him to be seen 3-5x/week - OT: recommend 1-3x/week - Bolster down/wound vac down on 06/18 - Split thickness dressing down on POD9/5 -> open to air for 4 hrs and then Eucerin/Aquaphor TID - Bacitracin to incisions TID for 3 days, then switch to vaseline. Tubes, Lines, and Drains: 6.0 cuffed shiley tracheostomy Neck ROBERTH x2 L arm ROBERTH PIV x2 Discontinue A-line Discontinue cervantes Prophylaxis: - DVT: SQH 5000 Q8H and SCDs - GI ppx: no indication for prophylaxis Dispo: SDU for flap checks Follow Up: SARANYA Fong MD SICU Resident General Surgery PGY-1 Attending Attestation I saw and evaluated Quirino Cordero with the resident. I personally obtained fonseca and critical portions of the history and physical exam. I reviewed the resident's documentation and discussed the patient with the resident and team. I agree with the medical decision making as documented in this note, which are reflective of the plans we discussed. Kaitlin Logan MD * Epifanio Dawkins MD - 06/12/2024 5:19 AM EDT OTOLARYNGOLOGY HEAD AND NECK SURGERY PROGRESS NOTE SUBJECTIVE NAEON AF VSS, on trach collar Doing well overall. Increased darkening noted to anterior portion of [place] tongue OBJECTIVE Blood pressure 194/80, pulse 77, temperature 98.6 F (37 C), temperature source Oral, resp. rate 10,weight 232 lb (105.2 kg), SpO2 95%. Alert, oriented, no acute distress, comfortable 6-0 cuffed Shiley trach in place and patent, cuff down, no bleeding Non-labored breathing on trach collar, in no respiratory distress or no stridor Neck flat, soft, incisions C/D/I No evidence of erythema, fluid collection, dehiscence, or necrosis Tongue midline, shoulder shrug intact [place] tongue bruised Flap: Strong doppler present and biphasic - intraoral skin paddle Warm and appears well perfused with appropriate cap refill. Flap well seated; soft, no dehiscence evident Donor site: Left upper extremity with motor/sensation intact Donor site dressed, no drainage Drains holding suction with ssg output SCDs in place LABORATORY AND IMAGING STUDIES Temperature: [97.7 F (36.5 C)-98.7 F (37.1 C)] 98.6 F (37 C) Heart Rate: [53-95] 77 Respiratory Rate: [10-28] 10 BP: (135-194)/(54-80) 194/80 Arterial BP: (133-173)/(60-78) 166/77 Results for orders placed or performed during the hospital encounter of 06/10/24 (from the past 76397 hour(s)) COMPLETE BLOOD COUNT Collection Time: 06/12/24 4:29 AM Result Value Ref Range WBC 9.3 4.5 - 11.5 K/uL RBC 4.00 (L) 4.50 - 5.90 M/uL Hemoglobin 12.4 (L) 13.9 - 16.3 g/dL Hematocrit 36.9 (L) 41.0 - 53.0 % MCV 92 80 - 100 fL MCH 31.0 26.0 - 34.0 pg MCHC 33.5 32.0 - 35.9 g/dL Platelet 162 150 - 400 K/uL RDW-CV 14.8 (H) 11.5 - 14.5 % MPV 8.2 7.5 - 11.2 fL *Note: Due to a large number of results and/or encounters for the requested time period, some results have not been displayed. A complete set of results can be found in Results Review. Fluid Management (24hrs): Intake/Output last 3 shifts: ASSESSMENT Admitted Diagnosis: squamous cell carcinoma of tongue Surgeon(s): Latrice Mi 2 Days Post-Op 74 yo male with tongue cancer, now POD 2 s/p trach, resection of tongue SCCa, neck dissection, and reconstruction with radial forearm free tissue transfer and tracheostomy on 06/10/2024 Flap Intraoral skin paddle Doppler: internal and external Donor Site: left radial forearm PLAN HEENT: -Q2H dopplers per nursing and Q6H resident flap check -ROBERTH Drains to bulb suction; monitor output and strip q4H; plan to remove after POD3 when output appropriate -ASA 81 mg x 7 days per flap protocol -Bacitracin to incisions TID x 3 days, then switch to vaseline TID x 14 days - Vaseline for his lips AIRWAY/PULM: -6.0 cuffed Shiley -> tentative plan for trach change on POD 5 to 4.0 cuffless Shiley -Humidified trach collar at all times -Wean O2 as tolerated -Standard trach care/suctioning/teaching -IS - Routine trach care - Keep plastic obturator (should be in small biohazard bag) in patient's room at all times in case of accidental decannulation. Obturators can help replace tracheostomies if they fall out, especiallyin the early post-operative period. To use them, take out the inner cannula (plastic inner tubing that clips onto trach) and put the obturator in. Once trach is replaced, promptly remove the obturator and replace it with the inner cannula. - Keep extra trach (6-0 cuffed Shiley) bedside for emergencies NEURO/ANALGESIA: -DRYWALL CONTRACTOR x 48 hrs (end 06/12) -> Oxycodone q6 prn -Scheduled acetaminophen ID: -Unasyn x 4 days -Trend daily labs CARDS: -HDS, monitor H/H -Transfuse for Hgb < 7 - Discontinued arterial line on POD1 : -Discontinue cervantes on POD2 -Monitor urine output FEN/GI: -Strict NPO with TFs via DHT; adv TF today, will bolus once at goal -Zofran, PPI -PO trial when cleared by ENT -Senna BID; add docusate and Miralax after POD 3 if no BM -Bolus TF after BM ENDO: -Monitor blood glucose -Replace lytes PRN EXTREM: -Bolster down/wound vac down on 06/18 -Split thickness dressing down on POD9/5 -> open to air for 4 hrs and then Eucerin/Aquaphor TID -Bacitracin to incisions TID for 3 days, then switch to vaseline. PPX: -subcutaneous Hep POD1 -SCDs in place while in bed -PT/OT consult -OOB to chair TID. OTHER: -Consults: SICU, PT/OT -Pertinent PMHx: HTN -Pathology: pending Dispo: ICU, transfer to floor POD3 - Will need trach supplies, enteral tube feeds - Case management for home health vs SNF placement - Plan for discharge around POD6-7 Appointments/Follow-up: Latrice Mi 06/23 * Darling Ch LISW - 06/11/2024 3:55 PM EDT Social Work ICU Note Aware of PT/OT reccs for home going. If pt requires Tube feeds at DC-- dietitian to arrange as appropriate. If pt requires tracheostomy supplies at DC-- team to please order as necessary. Home Trach Supplies: Suction pump, home model portable (E0600) Trachel suction tube (A4624) Size: (Please indicate size of Gabbie) Canister, disposable, for pump (A7000) Tubing used w/[id number] pump (A7002) Oropharyngeal suction cath, each (A4628) 50 PSI Compressor (E0565) Trach size (indicate size here) cuffless shiley, 2 per month (E1399) Large velcro ties, 4 per month (E1399) Saline bottle, 1 Liter, 2 per week (8 per month) *Not a DME order, to be prescribed as a medicationorder* 1-5 delivered the bedside 6-8 delivered to the home once patient is home 9 to be filled at pharmacy IF SUCTION MACHINE IS BEING ORDERED MDS TO PLEASE ORDER, USING 'DME SUCTION MACHINE ORDER SET. This order will populate everything except the 50 PSI compressor as that is its own order (E0565) as noted above. SW or CM will follow-up with pt as able for offer of [facility] services to assist with TF/trach care management. CM to assist if pt transitions off 5W. MAGRARET Almonte LISW * Lina Elizabeth MD - 06/11/2024 2:02 PM EDT ENT Flap Check Subjective: Patient doing well, laying in bed with family in the room. He has been up and out of bed, pain fairly well controlled. Objective: Vitals reviewed in EMR Gen: NAD, AOx3, resting comfortably in bed Face/Neck: All incisions c/d/i, neck soft and flat without evidence of hematoma or fluid collection -Skin paddle intraoral -External doppler with strong arterial signal -Trach in midline position without bleeding or thick tracheal secretions Oral Cavity: All intraoral incisions c/d/i without evidence of dehiscence -Flap soft and pink with good capillary refill. Left edge of [place] tongue with darker discoloration. Extremities: left arm warm with intact movement and sensation -Left thigh skin graft donor site with tegaderm in place Drains: All drains in place and holding suction with serosanguinous drainage (stripped) Assessment/Plan: Quirino Cordero is a 74 yo male with tongue cancer, now s/p trach, resection of tongue SCCa, neck dissection, and reconstruction with radial forearm free tissue transfer and tracheostomy on 06/10/2024 -Continue nursing flap checks -Continue q6hr flap checks until 9/ PM ENT [id number] * Kaitlin Logan MD - 06/11/2024 6:49 AM EDT Images from the original note were not included. GENERAL INFORMATION SURGICAL ICU - STAFF NOTE Patient seen and examined on 06/11/2024 Patient Name: Quirino Cordero Admission Date: 06/10/2024 INTERVAL HISTORY/EVENTS Background: 74 M pmh HLD, HTN, tongue SCCA now s/p trach, resection of tongue SCCa, neck dissection with radialforearm free flap reconstruction. Admitted to ICU post op for airway monitoring and flap checks. Hospital Course: 06/10: Tracheostomy, resection of tongue SCCa, neck dissection with radial forearm free flap reconstruction with ENT (Latrice). Admitted to ICU post op for airway monitoring and flap checks. Tolerated trach collar overnight. 24 Hour Events: OR yesterday with ENT for tracheostomy tube placement, resection of tongue SCCa, neck dissection with radial forearm free flap reconstruction, and split thickness skin graft application. Admitted to ICU post op for airway monitoring and flap checks. EBL: 200cc Fluid replacement: 500cc albumin, 3.8L IVF UO: 1914 Drains: ROBERTH 1 10 ROBERTH 2 40 ROBERTH 3 70 PHYSICAL EXAM Vital Signs: Vital sign ranges over the past 24 hours (retrieved 06/11/2024 at 6:49 AM): Tmax (24 hours): 99.3 F (37.4 C) Pulse Av.2 Min: 66 Max: 101 Systolic (24hrs), Av , Min:132 , Max:168 Diastolic (24hrs), Av, Min:54, Max:85 MAP (mmHg) Av.8 mmHg Min: 77 mmHg Max: 104 mmHg Resp Av.8 Min: 13 Max: 29 SpO2 Av.6 % Min: 85 % Max: 100 % 24 Hour Input/Output In: 5054.6 (48 mL/kg) [I.V.:4974.6 (2 mL/kg/hr)] Out: 1555 (14.8 mL/kg) [Urine:1355 (0.5 mL/kg/hr)] Net: 3499.6 Weight: 105.2 kg PHYSICAL EXAM Constituational: No distress. HEENT: Free flap intact. ROBERTH x 2 with serosanguinous output. Tracheostomy intact without drainage orbleeding Cardiovascular: Regular rate and rhythm. Pulmonary: Clear to auscultation bilaterally. On trach collar. Abdominal: Soft. Non-distended. Non-tender. Musculoskeletal: L forearm in are wrap. ROBERTH with serosanguinous output. LLE donor skin site with dressing in place without strikethrough Neurological: Alert, awake, and oriented x 3. Motor and sensory grossly intact. LABORATORY RESULTS (LAST 24 HOURS) CBC/PT/INR 06/11/2024 06/10/2024 06/10/2024 06/10/2024 4:42 AM 8:04 PM 1:48 PM 9:12 AM WBC 9.8 10.4 -- -- RBC 3.97 4.42 -- -- Hgb 12.2 13.3 12.7 14.1 Hct 36.6 40.6 39.0 43.2 MCV 92 92 -- -- RDW 15.1 14.9 -- -- Plt 173 160 -- -- Basic Metabolic Panel 06/11/2024 06/10/2024 06/10/2024 06/10/2024 5:31 AM 8:21 PM 1:48 PM 9:12 AM Na 139 141 141 142 K 4.1 4.6 3.9 4.0 Cl 107 107 110 107 CO2 25 25 -- -- Gap 11 14 -- -- Glu 148 149 143 142 BUN 25 24 -- -- Cr 1.10 1.22 -- -- Ca 8.9 9.1 -- -- Mg 1.8 1.6 -- -- PO4 3.8 4.0 -- -- Arterial Blood Gases T Site Mode LPM FIO2 pH pCO2 pO2 Sat Base Ex HCO3- A-a 06/10/24 1348 06/10/24 1348 7.407 35.9 115 98.2 -1.6 22 06/10/24 0912 24 06/10/24 0912 7.350 44.2 131 98.6 -1.4 24 Fingerstick Glucose None IMAGING RESULTS (PERSONALLY REVIEWED) KUB IMPRESSION: 1. Enteric tube projects over the mid stomach region. Consider advancement prior to being used for feeding. 2. Nonobstructive bowel gas pattern. ASSESSMENT & PLAN Diagnosis s/p tracheostomy tube placement, resection of tongue SCCa, neck dissection with radial forearm free flap reconstruction, and split thickness skin graft application: PMHx SCC of tongue MDD HTN HLD Plan: Neurological: - DRYWALL CONTRACTOR for 48 hours then transition to oxycodone Q6H PRN - Tylenol 1000mg Q8H - Home buspar 10 mg daily HEENT: - Per ENT: -Q1H flap check and dopplers per nursing and Q6H resident flap check -ROBERTH Drains to bulb suction; monitor output and strip q4H; plan to remove after POD3 when output appropriate -ASA 81 mg x 7 days per flap protocol -Bacitracin to incisions TID x 3 days, then switch to vaseline TID x 14 days Cardiovascular: - On ASA 81mg at home at baseline -- also being used for new flap - Continue additional home medications: Metoprolol 25mg BID, Atrovastatin 80mg Respiratory: - Tolerating trach collar overnight on 10L 50% FiO2 - ENT postop recs: -6.0 cuffed Shiley -> tentative plan for trach change on POD 5 to 4.0 cuffless Shiley -Humidified trach collar at all times -Wean O2 as tolerated -Standard trach care/suctioning/teaching - Routine trach care - Keep plastic obturator (should be in small biohazard bag) in patient's room at all times in case of accidental decannulation. See ENT note for instructions. - Keep extra trach (6-0 cuffed Shiley) bedside for emergencies GI/Diet: -Strict NPO with TFs via DHT; ok to start trickle feeds today currently running at 20mL/h -Nutrition consult -Bolus TF after BM -Zofran -PO trial when cleared by ENT -Senna BID; add docusate and Miralax after POD 3 if no BM Renal/Electrolytes: - Maintain cervantes until POD2 (06/12) per primary - Monitor UOP - Daily BMP, Mg, Phos -- replete lytes PRN ID: - surgical prophylaxis with Unasyn per primary Heme: - Transfusion goal hgb >7 Endocrine: -No history of DMII; no active issues MSK: -PT/OT -Bolster down/wound vac down on /6 -Split thickness dressing down on POD9/5 -> open to air for 4 hrs and then Eucerin/Aquaphor TID -Bacitracin to incisions TID for 3 days, then switch to vaseline. Tubes, Lines, and Drains: 6.0 cuffed shiley tracheostomy Neck Jpx2 L arm ROBERTH Per ENT remove Cervantes on POD2 PIV x2 Discontinue mere Prophylaxis: - DVT: Start SQH 5000 Q8H and SCDs - GI ppx: no indication for prophylaxis, will discontinue Dispo: Continue SICU for flap checks Follow Up: ENT Babak Dobbins MD, PGY2 Attending Attestation I saw and evaluated Quirino Cordero with the resident. I personally obtained fonseca and critical portions of the history and physical exam. I reviewed the resident's documentation and discussed the patient with the resident and team. I agree with the medical decision making as documented in this note, which are reflective of the plans we discussed. Kaitlin Logan MD * Lina Elizabeth MD - 06/11/2024 6:07 AM EDT OTOLARYNGOLOGY HEAD AND NECK SURGERY PROGRESS NOTE SUBJECTIVE NAEON AF VSS, on trach collar Doing well overall OBJECTIVE Blood pressure 144/58, pulse 57, temperature 97.7 F (36.5 C), temperature source Oral, resp. rate 14, weight 232 lb (105.2 kg), SpO2 97%. Alert, oriented, no acute distress, comfortable 6-0 cuffed Shiley trach in place and patent, cuff down, no bleeding Non-labored breathing on trach collar, in no respiratory distress or no stridor Neck flat, soft, incisions C/D/I No evidence of erythema, fluid collection, dehiscence, or necrosis Tongue midline, shoulder shrug intact [place] tongue bruised Flap: Strong doppler present and biphasic - intraoral skin paddle Warm and appears well perfused with appropriate cap refill. Flap well seated; soft, no dehiscence evident Donor site: Left upper extremity with motor/sensation intact Donor site dressed, no drainage Drains holding suction with ssg output SCDs in place LABORATORY AND IMAGING STUDIES Temperature: [97.7 F (36.5 C)-99.3 F (37.4 C)] 97.7 F (36.5 C) Heart Rate: [57-101] 57 Respiratory Rate: [12-29] 14 BP: (132-168)/(54-85) 144/58 Arterial BP: (126-171)/(54-84) 142/61 Results for orders placed or performed during the hospital encounter of 06/10/24 (from the past 89423 hour(s)) COMPLETE BLOOD COUNT Collection Time: 06/11/24 4:42 AM Result Value Ref Range WBC 9.8 4.5 - 11.5 K/uL RBC 3.97 (L) 4.50 - 5.90 M/uL Hemoglobin 12.2 (L) 13.9 - 16.3 g/dL Hematocrit 36.6 (L) 41.0 - 53.0 % MCV 92 80 - 100 fL MCH 30.8 26.0 - 34.0 pg MCHC 33.4 32.0 - 35.9 g/dL Platelet 173 150 - 400 K/uL RDW-CV 15.1 (H) 11.5 - 14.5 % MPV 8.3 7.5 - 11.2 fL *Note: Due to a large number of results and/or encounters for the requested time period, some results have not been displayed. A complete set of results can be found in Results Review. Fluid Management (24hrs): Intake/Output last 3 shifts: Date 06/11/24 0700 - 06/12/24 0659 Shift 2795-4183 4914-8584 3320-6038 24 Hour Total INTAKE I.V.(mL/kg/hr) 77.6 77.6 NG / GT 20 20 Shift Total(mL/kg) 97.6(0.9) 97.6(0.9) OUTPUT Urine(mL/kg/hr) 65 65 Shift Total(mL/kg) 65(0.6) 65(0.6) Weight (kg) 105.2 105.2 105.2 105.2 ASSESSMENT Admitted Diagnosis: squamous cell carcinoma of tongue Surgeon(s): Latrice Mi 1 Day Post-Op 74 yo male with tongue cancer, now POD 1 s/p trach, resection of tongue SCCa, neck dissection, and reconstruction with radial forearm free tissue transfer and tracheostomy on 06/10/2024 Flap Intraoral skin paddle Doppler: internal and external Donor Site: left radial forearm PLAN HEENT: -Q1H dopplers per nursing and Q6H resident flap check -ROBERTH Drains to bulb suction; monitor output and strip q4H; plan to remove after POD3 when output appropriate -ASA 81 mg x 7 days per flap protocol -Bacitracin to incisions TID x 3 days, then switch to vaseline TID x 14 days AIRWAY/PULM: -6.0 cuffed Shiley -> tentative plan for trach change on POD 5 to 4.0 cuffless Shiley -Humidified trach collar at all times -Wean O2 as tolerated -Standard trach care/suctioning/teaching -IS - Routine trach care - Keep plastic obturator (should be in small biohazard bag) in patient's room at all times in case of accidental decannulation. Obturators can help replace tracheostomies if they fall out, especiallyin the early post-operative period. To use them, take out the inner cannula (plastic inner tubing that clips onto trach) and put the obturator in. Once trach is replaced, promptly remove the obturator and replace it with the inner cannula. - Keep extra trach (6-0 cuffed Shiley) bedside for emergencies NEURO/ANALGESIA: -DRYWALL CONTRACTOR x 48 hrs -> Oxycodone q6 prn -Scheduled acetaminophen ID: -Unasyn x 4 days -Trend daily labs CARDS: -HDS, monitor H/H -Transfuse for Hgb < 7 - Discontinue arterial line on POD1 if HDS : -Discontinue cervantes on POD2 -Monitor urine output FEN/GI: -Strict NPO with TFs via DHT; ok to start trickle feeds today -Zofran, PPI -PO trial when cleared by ENT -Senna BID; add docusate and Miralax after POD 3 if no BM -Bolus TF after BM ENDO: -Monitor blood glucose -Replace lytes PRN EXTREM: -Bolster down/wound vac down on 9/6 -Split thickness dressing down on POD9/5 -> open to air for 4 hrs and then Eucerin/Aquaphor TID -Bacitracin to incisions TID for 3 days, then switch to vaseline. PPX: -subcutaneous Hep POD1 -SCDs in place while in bed -PT/OT consult -OOB to chair TID. OTHER: -Consults: SICU, PT/OT -Pertinent PMHx: HTN -Pathology: pending Dispo: ICU, transfer to floor POD3 - Will need trach supplies, enteral tube feeds - Case management for home health vs SNF placement - Plan for discharge around POD6-7 Appointments/Follow-up: Latrice Mi 06/23 * Meena Munoz MD - 06/10/2024 11:33 PM EDT ENT Flap Check Subjective: S/p partial glossectomy, neck dissection, RFFF, trach on 06/10. Doing well post- operatively. Pain controlled with DRYWALL CONTRACTOR. Mild amount of blood tinged secretions around trach and in mouth with no active bleeding. Objective: Vitals reviewed in EMR Gen: NAD, AOx3, resting comfortably in bed Face/Neck: All incisions c/d/i, neck soft and flat without evidence of hematoma or fluid collection -External doppler with strong arterial signal -Trach in midline position without bleeding or thick tracheal secretions - corpak in place Oral Cavity: All intraoral incisions c/d/i without evidence of dehiscence -Flap soft and pink with good capillary refill Extremities: left arm warm with intact movement and sensation -left thigh skin graft donor site with tegaderm in place Drains: All drains in place and holding suction with serosanguinous drainage (stripped) Assessment/Plan: 74 year old male with PMH HTN with tongue SCCa s/p partial glossectomy, left neck dissection, RFFF,STSG, trach on 06/[address] Mi and Latrice. Doing well post-operatively - KUB with corpak terminating in stomach. Does not need to be advanced, ok to use for meds -Continue q6hr flap checks until POD3 ENT [phone] * Meena Munoz MD - 06/10/2024 6:00 PM EDT ENT FLAP CARE PLAN NOTE ASSESSMENT Admitted Diagnosis: squamous cell carcinoma of tongue Surgeon(s): Latrice Mi [facility] of [facility] 74 year old yo male with tongue cancer, now POD 0 s/p trach, resection of tongue SCCa, neck dissection, and reconstruction with radial forearm free tissue transfer and tracheostomy on 06/10/24 Flap Intraoral skin paddle Doppler: internal and external Donor Site: left radial forearm PLAN HEENT: -Q1H dopplers per nursing and Q6H resident flap check -ROBERTH Drains to bulb suction; monitor output and strip q4H; plan to remove after POD3 when output appropriate -ASA 81 mg x 7 days per flap protocol -Bacitracin to incisions TID x 3 days, then switch to vaseline TID x 14 days AIRWAY/PULM: -6.0 cuffed Shiley -> tentative plan for trach change on POD 5 to 4.0 cuffless Shiley -Humidified trach collar at all times -Wean O2 as tolerated -Standard trach care/suctioning/teaching -IS - Routine trach care - Keep plastic obturator (should be in small biohazard bag) in patient's room at all times in case of accidental decannulation. Obturators can help replace tracheostomies if they fall out, especiallyin the early post-operative period. To use them, take out the inner cannula (plastic inner tubing that clips onto trach) and put the obturator in. Once trach is replaced, promptly remove the obturator and replace it with the inner cannula. - Keep extra trach (6-0 cuffed Shiley) bedside for emergencies NEURO/ANALGESIA: -DRYWALL CONTRACTOR x 48 hrs -> Oxycodone q6 prn -Scheduled acetaminophen ID: -Unasyn x 4 days -Trend daily labs CARDS: -HDS, monitor H/H -Transfuse for Hgb < 7 - Discontinue arterial line on POD1 if HDS : -Discontinue cervantes on POD2 -Monitor urine output FEN/GI: -Strict NPO with TFs via DHT; ok to start trickle feeds today -Zofran, PPI -PO trial when cleared by ENT -Senna BID; add docusate and Miralax after POD 3 if no BM -Bolus TF after BM ENDO: -Monitor blood glucose -Replace lytes PRN EXTREM: -Bolster down/wound vac down on /6 -Split thickness dressing down on POD9/5 -> open to air for 4 hrs and then Eucerin/Aquaphor TID -Bacitracin to incisions TID for 3 days, then switch to vaseline. PPX: -subcutaneous Hep POD1 -SCDs in place while in bed -PT/OT consult -OOB to chair TID. OTHER: -Consults: SICU, PT/OT -Pertinent PMHx: HTN -Pathology: pending Dispo: ICU, transfer to floor POD3 - Will need trach supplies, enteral tube feeds - Case management for home health vs SNF placement - Plan for discharge around POD6-7 Appointments/Follow-up: Tricia Latrice 06/23 documented in this [id number] Consult note* Theresa Cullen, RD - 06/15/2024 2:17 PM EDT Nutrition Support (TF) Discharge Planning Note Pt nearing discharge to home with C on TF. Reports tolerating TF, no issues. However, per RN has needed to run feeds over 2hrs d/t some abdominal discomfort. Recommend to transition to home TF regimen today to ensure well-tolerated by pt prior to discharge - starting with x2hr run time for feeds via gravity bag, then if tolerating transition down to x1hr run time. [employer] has delivered his home going TF supplies however family reports not being provided education yet - reached out to DME who states that they will return to provide ed in the AM. Current TF order: Impact Peptide 1.5/Pivot 1.5 400mL 4x/d - each bolus ran over 1hr via pump. + [id number] before & after each bolus. Diet: NPO Estimated needs: using admit wt [id number] kcal/d 25-30 kcal/kg admit wt [105.2 kg] [MSJ 1750 kcal] 135g pro/d 2 g pro/kg IBW 2600 mL/d 25 mL/kg admit wt Recommendations/Plan: Transition to home TF regimen to ensure pt is tolerating well prior to discharge home: Boost VHC - 360 mL (1.5 cartons) at 8a and 12p + 240 mL (1 carton) at 4p and 8p- do not use pump. Please give via syringe or gravity bag. Run each bolus over 2hrs - if well-tolerated run over 1hr. Water flushes 150 mL before and 150 mL after each TF bolus 2. [employer] was contacted today about providing homegoing TF education prior to dc - state theywill provide education to family in the AM 06/16/24. Supplies have already been delivered to room. 3. MD - please place OP nutrition referral for follow-up/home TF management --> [id number] (specify enteral nutrition) in discharge orders. Theresa Cullen RD, LD, CNSC Personal Pager: [phone] On-Call Nutrition Pager: [phone] Time spent on patient care: 45 minutes [employer] Work Phone: 1(703) 364-712709-03-2024 Note06/15/24 1403 Assessment and Discharge Planning Evaluation READMISSION LESS THAN 30 DAYS No READMISSION RISK SCORE IS Rising Risk INTERVIEWED Family;Patient Name Spouse Gianna and daughter Susana [phone] COGNITIVE STATUS Oriented FUNCTIONAL STATUS PRIOR TO ADMISSION Ambulatory HAS ADVANCE DIRECTIVE ON FILE No LIVING SITUATION Home with Family CONNECTED TO MENTAL HEALTH SERVICES No CONNECTED TO COMMUNITY SERVICES No CONNECTED TO SUBSTANCE ABUSE SERVICES No ADMISSION INSURANCE Medicare;Other (comment) Medicare Traditional TRANSPORTATION TO AND/OR FROM APPOINTMENTS Drives Self;Family/Friend Provides Ride HOME OXYGEN No HOME HEALTH CARE PRIOR TO ADMISSION No DIALYSIS No DISCUSSSED WHAT HELP PATIENT WOULD NEED Yes DISCHARGE DISPOSITION DC Home w HH SW/CM aware that patient meets criteria for HHC. Spoke with pt/pt's family. Patient/pt's family open and agreeable to C. CM/SW provided pt/pt's family the quality and resource use measure data from available post-acute (PAC) providers, that best align with the patient's treatment goals and preferences from the medicare.gov compare site for HHC. [place] of Choice was provided to the patient/patient passenger service representative. Pt/pt's family agreeable to referral to in-network [facility] agencies. [facility] referrals initiated for SN (trach care, tube feed management). For Home Health Care Order a CON 196 must be placed following these recommendations: Discharge Tab>Order Reconciliation>New Orders for discharge>Additional discharge>CON 196. Include services ordered and attending MD must sign. ALSO, PER NEW MEDICARE GUIDELINES PLEASE INCLUDE THE FOLLOWING DOCUMENTATION IN PROGRESS NOTE, DC SUMMARY, OR C ORDER FOR PATIENT TO QUALIFY FOR HOMECARE: What are the specific clinical findings (not the diagnosis) which support the need for the selected skilled services ordered. Include findings that support the patient is homebound, which include the need for any assistance of others and the use of assistive devices. What makes leaving home a considerable and taxing effort? Home Trach Supplies: Suction pump, home model portable (E0600) Trachel suction tube (A4624) Size: (Please indicate size of [place]) Canister, disposable, for pump (A7000) Tubing used w/uhktqr0p pump (A7002) Oropharyngeal suction cath, each (A4628) 50 PSI Compressor (E0565) Trach size (indicate size here) cuffless shiley, 2 per month (E1399) Large velcro ties, 4 per month (E1399) Saline bottle, 1 Liter, 2 per week (8 per month) *Not a DME order, to be prescribed as a medication order* 1-5 delivered the bedside 6-8 delivered to the home once patient is home 9 to be filled at pharmacy IF SUCTION MACHINE IS BEING ORDERED MDS TO PLEASE ORDER, USING 'DME SUCTION MACHINE ORDER SET. This order will populate everything except the 50 PSI compressor as that is its own order (E0565) as noted above. Plan: Awaiting confirmation on [facility] agency acceptance. Physician to please place [id number] order for SN. If pt will have trach at DC physician to please order necessary trach supplies as well. Dietitian to assist with arranging home tubefeeds. MARGARET Almonte, ERUM 15:07 ADDENDUM [facility] anticipates acceptance. [facility] agency to be updated when it is confirmed if pt will DC with trach and date of DC. Team to place [facility] [id number] order. MARGARET Almonte, [facility] [id number] NoteOTOLARYNGOLOGY HEAD AND NECK SURGERY PROGRESS NOTE SUBJECTIVE NAEON AF VSS, on trach collar Doing well overall. Tolerating TF well. No issues with breathing. Pain well controlled. Having BMs. Patient will continue to have cervantes in until tomorrow. OBJECTIVE Blood pressure 137/72, pulse 67, temperature 98.7 ???F (37.1 ???C), temperature source Oral, resp. rate 18, weight 232 lb (105.2 kg), SpO2 97%. Alert, oriented, no acute distress, comfortable 6-0 cuffed Shiley trach in place and patent, cuff down, no bleeding Non-labored breathing on trach collar, in no respiratory distress or no stridor Neck flat, soft, incisions C/D/I No evidence of erythema, fluid collection, dehiscence, or necrosis Tongue midline, shoulder shrug intact [place] tongue bruised Flap: Strong doppler present and biphasic - intraoral skin paddle Warm and appears well perfused with appropriate cap refill. Flap well seated; soft, no dehiscence evident Donor site: Left upper extremity with motor/sensation intact Donor site dressed, no drainage Drains holding suction with ssg output SCDs in place [facility] Temperature: [97.6 ???F (36.4 ???C)-98.9 ???F (37.2 ???C)] 98.7 ???F (37.1 ???C) Heart Rate: [64-109] 67 Respiratory Rate: [11-30] 18 BP: (119-164)/(56-97) 137/72 Results for orders placed or performed during the hospital encounter of 06/10/24 (from the past 22997 hour(s)) COMPLETE BLOOD COUNT Collection Time: 06/15/24 2:53 AM Result Value Ref Range WBC 6.8 4.5 - 11.5 K/uL RBC 4.34 (L) 4.50 - 5.90 M/uL Hemoglobin 13.0 (L) 13.9 - 16.3 g/dL Hematocrit 39.9 (L) 41.0 - 53.0 % MCV 92 80 - 100 fL MCH 29.8 26.0 - 34.0 pg MCHC 32.5 32.0 - 35.9 g/dL Platelet 193 150 - 400 K/uL RDW-CV 15.1 (H) 11.5 - 14.5 % MPV 8.7 7.5 - 11.2 fL *Note: Due to a large number of results and/or encounters for the requested time period, some results have not been displayed. A complete set of results can be found in Results Review. Fluid Management (24hrs): Intake/Output last 3 shifts: ASSESSMENT Admitted Diagnosis: squamous cell carcinoma of tongue Surgeon(s): Latrice Mi 5 Days Post-Op 74 yo male with tongue cancer, now POD 3 s/p trach, resection of tongue SCCa, neck dissection, and reconstruction with radial forearm free tissue transfer and tracheostomy on 06/10/2024 Flap Intraoral skin paddle Doppler: internal and external Donor Site: left radial forearm PLAN HEENT: -Q4H dopplers per nursing and Q12H resident flap check -ROBERTH Drains to bulb suction; monitor output and strip q4H; plan to remove after POD3 when output appropriate -ASA 81 mg x 7 days per flap protocol -Bacitracin to incisions TID x 3 days, then switch to vaseline TID x 14 days - Vaseline for his lips AIRWAY/PULM: -6.0 cuffed Shiley -> will change this morning to 4.0 cuffless Shiley with cap -Humidified trach collar at all times -Wean O2 as tolerated -Standard trach care/suctioning/teaching -IS - Routine trach care - Keep plastic obturator (should be in small biohazard bag) in patient's room at all times in case of accidental decannulation. Obturators can help replace tracheostomies if they fall out, especially in the early post-operative period. To use them, take out the inner cannula (plastic inner tubing that clips onto trach) and put the obturator in. Once trach is replaced, promptly remove the obturator and replace it with the inner cannula. NEURO/ANALGESIA: -Oxycodone 5/10 q6 prn -Scheduled acetaminophen ID: -Unasyn x 4 days (End 06/14) -Trend daily labs CARDS: -HDS, monitor H/H -Transfuse for Hgb < 7 - Discontinued arterial line on POD1 : - Voiding spontaneously -Monitor urine output FEN/GI: -Strict NPO with TFs via DHT; home bolus TF today -Zofran, PPI -PO trial when cleared by ENT -Senna BID ENDO: -Monitor blood glucose -Replace lytes PRN EXTREM: -Bolster down on 06/16 -Split thickness dressing down on 06/15 -> open to air for 4 hrs and then Eucerin/Aquaphor TID -Bacitracin to incisions TID for 3 days, then switch to vaseline. PPX: -subcutaneous Hep -SCDs in place while in bed -PT/OT consult -OOB to chair TID. OTHER: -Consults: SICU, PT/OT -Pertinent PMHx: HTN -Pathology: pending Dispo: ICU, Stepdown status 06/13, transfer to floor 06/14 - Will need trach supplies, enteral tube feeds - Case management for home health vs SNF placement - Plan for discharge around 06/16-06/17 Appointments/Follow-up: [facility]23[id number] Consult note* Caitlyn Huang, PT - 06/14/2024 11:59 AM EDT Physical Therapy Time in: 1020, time out: 1037 SUBJECTIVE: pt motivated to mobilize, no c/o OBJECTIVE: Pt. seen on 5w for 17 minutes for treatment as follows: Appearance/behavior: OOB in chair with Papo pressure alarm intact. Prior to and after rx, + trach,ICU montiors, doppler on plugged in, L short UE splint, surgical incisions, Pain: 0/10, Transfers: mod Independent without device Ambulation: mod Independent 300' without device, steady gait Stairs: deferred as pt with no stairs, pt deferred Patient education: pt and family about amb on unit at least 3x/day with assist for lines 06/14/2024 6 Clicks Basic Mobility PT Difficulty turning over in bed 4 Difficulty sitting down and standing up from a chair with arms 4 Difficulty moving from lying on back to sitting on the side of the bed 4 Help from another person moving to and from bed to a chair 4 Help from another person to walk in hospital room 4 Help from another person climbing 3-5 steps with a railing 3 PT 6 Clicks Score 23 6 Click Score Guidelines: 1 - Total = Requires total assistance, or cannot do at all. 2 - A lot = Requires a lot of help (maximun to moderate assistance) Can use assistive devices. 3 - A little = Requires a little help (supervision, minimal assistance) Can use assistive devices. 4 - None = Does not require any help and does the activity independently. Can use assistive devices.. ASSESMENT: pt mobilizing well/baseline, no pain. Met goals and ok for d/c home with family assist as needed. MET all goals Goals (to be achieved by 2 days or by discharge from acute care): Patient will achieve acceptable level of pain control to allow participation in therapy. Patient will increase bed mobility to modified independent Patient will perform sit to/from stand with no device with modified independent Patient will transfer bed to/from chair with no device with modified independent Patient will ambulate 150 feet with no device with modified independent Patient will increase ROM/Strength/Endurance/Balance to allow for above goals. PLAN: d/c PT Caitlyn Huang PT [phone] [id number] Consult note* Darling Haq, OT - 06/14/2024 10:39 AM EDT OCCUPATIONAL THERAPY PROGRESS SUMMARY Patient seen from 1020 to 1037 on 5 [facility] unit for 17 minute treatment. SUBJECTIVE: Patient Subjective/Goals Friday re: patient's response when asked when he is going home OBJECTIVE: Pain: No pain reported or noted Pain Relief Interventions Implemented: None required; No pain at this time Appearance: trach collar, corpak, neck incision with drains, L wrist splint, doppler to neck, PIV, tele, BP cuff Behavior: alert, pleasant and cooperative Cognition: oriented x3, follows all directions, insight to impairments is improved UE Status: L UE splint in place Self Care: Assistance Level NA Dep Max Mod Min CG CS DS TX I Set-Up Cues Comment Feeding Grooming/ Hygiene x Wash hands standing at sink Bathing: Upper Body Bathing: Lower Body Dressing: Upper Body x Don gown as robe Dressing: Lower Body x Don socks Toileting x Sitting/standing at toilet Toilet Transfers x Low toilet, use of grab bar on wall Bed Transfer x Sit/stand stand/sit to/from chair Bed Mobility Ambulation x Within room, hallway , bathroom without device Patient remained seated in bedside chair end of session. Call lima and telephone within reach. Patient instructed to call for staff assist when ready to return to bed and for all mobility. RN aware of patient location and mobility status. Endurance for Self Care: WFL Patient/Family Education: Instructed Patient and Spouse in roles, goals, treatment plan: demonstrated good verbal understanding. 06/14/2024 6 Clicks Daily Activity OT Help from another person Eating meals 1 Help from another person taking care of personal grooming 3 Help from another person bathing 3 Help from another person putting on and taking off regular upper body clothing 3 Help from another person putting on and taking off regular lower body clothing 3 Help from another person toileting 3 OT 6 Clicks Score 16 6 Click Score Guidelines: 1 - Unable = Total/Dependent Assist 2 - A lot = Max/Moderate Assist 3 - A little = Minimum/Contact Guard Assist/Supervision 4 - Non = Modified [place]/Independent ASSESSMENT: Patient is functionally appropriate for discharge home once medically cleared. Recommend PRN family/caregiver assist. No further acute care OT needs. Goals (to be achieved by discharge from acute care): GOALS MET Patient will perform grooming with Modified Independent Patient will dress upper body with Modified Independent Patient will dress lower body with Modified Independent Patient will perform bed mobility with Modified Independent Patient will perform bathing with Distant supervision Patient will perform toileting with Modified Independent Patient will perform bed transfers with Modified Independent PLAN: Discharge OT Darling GREEN OTR/L Pager: [phone] Secure chat preferred NA = Not Assessed, I = Independent, TX = Modified Independent, Sup = Supervised, Set up = Physical Assistance for Set-up Only, Min = Minimal Assistance, Mod = Moderate Assistance, Max = Max assistance; Dep = Dependent; AROM = Active Range of Motion;PROM=Passive Rangeof Motion; MMT = Manual Muscle Test; Shld= Shoulder; Add = Adduction; Abd = Abduction [employer] Work Phone: [phone] 904-522809-02-2024 NoteOCCUPATIONAL THERAPY PROGRESS SUMMARY Patient seen from 1020 to 1037 on 5 [facility] unit for 17 minute treatment. SUBJECTIVE: Patient Subjective/Goals Friday re: patient's response when asked when he is going home OBJECTIVE: Pain: No pain reported or noted Pain Relief Interventions Implemented: None required; No pain at this time Appearance: trach collar, corpak, neck incision with drains, L wrist splint, doppler to neck, PIV, tele, BP cuff Behavior: alert, pleasant and cooperative Cognition: oriented x3, follows all directions, insight to impairments is improved UE Status: L UE splint in place Self Care: Assistance Level NA Dep Max Mod Min CG CS DS TX I Set-Up Cues Comment Feeding Grooming/ Hygiene x Wash hands standing at sink Bathing: Upper Body Bathing: Lower Body Dressing: Upper Body x Don gown as robe Dressing: Lower Body x Don socks Toileting x Sitting/standing at toilet Toilet Transfers x Low toilet, use of grab bar on wall Bed Transfer x Sit/stand stand/sit to/from chair Bed Mobility Ambulation x Within room, hallway , bathroom without device Patient remained seated in bedside chair end of session. Call lima and telephone within reach. Patient instructed to call for staff assist when ready to return to bed and for all mobility. RN aware of patient location and mobility status. Endurance for Self Care: WFL Patient/Family Education: Instructed Patient and Spouse in roles, goals, treatment plan: demonstrated good verbal understanding. 06/14/2024 6 Clicks Daily Activity OT Help from another person Eating meals 1 Help from another person taking care of personal grooming 3 Help from another person bathing 3 Help from another person putting on and taking off regular upper body clothing 3 Help from another person putting on and taking off regular lower body clothing 3 Help from another person toileting 3 OT 6 Clicks Score 16 6 Click Score Guidelines: 1 - Unable = Total/Dependent Assist 2 - A lot = Max/Moderate Assist 3 - A little = Minimum/Contact Guard Assist/Supervision 4 - Non = Modified [place]/Independent ASSESSMENT: Patient is functionally appropriate for discharge home once medically cleared. Recommend PRN family/caregiver assist. No further acute care OT needs. Goals (to be achieved by discharge from acute care): GOALS MET Patient will perform grooming with Modified Independent Patient will dress upper body with Modified Independent Patient will dress lower body with Modified Independent Patient will perform bed mobility with Modified Independent Patient will perform bathing with Distant supervision Patient will perform toileting with Modified Independent Patient will perform bed transfers with Modified Independent PLAN: Discharge OT Darling GREEN, OTR/L Pager: [phone] Secure chat preferred NA = Not Assessed, I = Independent, TX = Modified Independent, Sup = Supervised, Set up = Physical Assistance for Set-up Only, Min = Minimal Assistance, Mod = Moderate Assistance, Max = Max assistance; Dep = Dependent; AROM = Active Range of Motion;PROM=Passive Range of Motion; MMT = Manual Muscle Test; Shld= Shoulder; Add = Adduction; Abd = AbductionThe [employer] [phone] Note OTOLARYNGOLOGY HEAD AND NECK SURGERY PROGRESS NOTE SUBJECTIVE NAEON AF VSS, on trach collar Doing well overall. Tolerating TF well. No issues with breathing. Pain well controlled OBJECTIVE Blood pressure 167/97, pulse 96, temperature 98.1 ???F (36.7 ???C), temperature source Axillary, resp. rate 21, weight 232 lb (105.2 kg), SpO2 98%. Alert, oriented, no acute distress, comfortable 6-0 cuffed Shiley trach in place and patent, cuff down, no bleeding Non-labored breathing on trach collar, in no respiratory distress or no stridor Neck flat, soft, incisions C/D/I No evidence of erythema, fluid collection, dehiscence, or necrosis Tongue midline, shoulder shrug intact [place] tongue bruised Flap: Strong doppler present and biphasic - intraoral skin paddle Warm and appears well perfused with appropriate cap refill. Flap well seated; soft, no dehiscence evident Donor site: Left upper extremity with motor/sensation intact Donor site dressed, no drainage Drains holding suction with ssg output SCDs in place LABORATORY AND IMAGING STUDIES Temperature: [97.6 ???F (36.4 ???C)-98.2 ???F (36.8 ???C)] 98.1 ???F (36.7 ???C) Heart Rate: [57-96] 96 Respiratory Rate: [10-21] 21 BP: (130-167)/(75-97) 167/97 Results for orders placed or performed during the hospital encounter of 06/10/24 (from the past 34586 hour(s)) COMPLETE BLOOD COUNT Collection Time: 06/14/24 5:04 AM Result Value Ref Range WBC 8.6 4.5 - 11.5 K/uL RBC 4.46 (L) 4.50 - 5.90 M/uL Hemoglobin 13.6 (L) 13.9 - 16.3 g/dL Hematocrit 40.8 (L) 41.0 - 53.0 % MCV 92 80 - 100 fL MCH 30.6 26.0 - 34.0 pg MCHC 33.4 32.0 - 35.9 g/dL Platelet 190 150 - 400 K/uL RDW-CV 14.6 (H) 11.5 - 14.5 % MPV 8.6 7.5 - 11.2 fL *Note: Due to a large number of results and/or encounters for the requested time period, some results have not been displayed. A complete set of results can be found in Results Review. Fluid Management (24hrs): Intake/Output last 3 shifts: Date 06/14/24 07 - 06/15/24 0659 Shift [id number] 6289-3121 7396-5707 24 Hour Total INTAKE NG / GT 15 15 Shift Total(mL/kg) 15(0.1) 15(0.1) OUTPUT Shift Total(mL/kg) Weight (kg) 105.2 105.2 105.2 105.2 ASSESSMENT Admitted Diagnosis: squamous cell carcinoma of tongue Surgeon(s): Latrice Mi 4 Days Post-Op 74 yo male with tongue cancer, now POD 3 s/p trach, resection of tongue SCCa, neck dissection, and reconstruction with radial forearm free tissue transfer and tracheostomy on 06/10/2024 Flap Intraoral skin paddle Doppler: internal and external Donor Site: left radial forearm PLAN HEENT: -Q4H dopplers per nursing and Q12H resident flap check -ROBERTH Drains to bulb suction; monitor output and strip q4H; plan to remove after POD3 when output appropriate -ASA 81 mg x 7 days per flap protocol -Bacitracin to incisions TID x 3 days, then switch to vaseline TID x 14 days - Vaseline for his lips AIRWAY/PULM: -6.0 cuffed Shiley -> tentative plan for trach change on POD 5 to 4.0 cuffless Shiley -Humidified trach collar at all times -Wean O2 as tolerated -Standard trach care/suctioning/teaching -IS - Routine trach care - Keep plastic obturator (should be in small biohazard bag) in patient's room at all times in case of accidental decannulation. Obturators can help replace tracheostomies if they fall out, especially in the early post-operative period. To use them, take out the inner cannula (plastic inner tubing that clips onto trach) and put the obturator in. Once trach is replaced, promptly remove the obturator and replace it with the inner cannula. - Keep extra trach (6-0 cuffed Shiley) bedside for emergencies NEURO/ANALGESIA: -Oxycodone 5/10 q6 prn -Scheduled acetaminophen ID: -Unasyn x 4 days (End 06/14) -Trend daily labs CARDS: -HDS, monitor H/H -Transfuse for Hgb < 7 - Discontinued arterial line on POD1 : - Voiding spontaneously -Monitor urine output FEN/GI: -Strict NPO with TFs via DHT; bolus TF today -Zofran, PPI -PO trial when cleared by ENT -Senna BID ENDO: -Monitor blood glucose -Replace lytes PRN EXTREM: -Bolster down/wound vac down on 06/16 -Split thickness dressing down on 06/15 -> open to air for 4 hrs and then Eucerin/Aquaphor TID -Bacitracin to incisions TID for 3 days, then switch to vaseline. PPX: -subcutaneous Hep -SCDs in place while in bed -PT/OT consult -OOB to chair TID. OTHER: -Consults: SICU, PT/OT -Pertinent PMHx: HTN -Pathology: pending Dispo: ICU, Stepdown status 06/13, transfer to floor 06/14 - Will need trach supplies, enteral tube feeds - Case management for home health vs SNF placement - Plan for discharge around 06/16-06/17 Appointments/Follow-up: Latrice Mi 06/23[facility] [employer] [id number] Note OTOLARYNGOLOGY HEAD AND NECK SURGERY PROGRESS NOTE SUBJECTIVE NAEON AF VSS, on trach collar Doing well overall. Tolerating TF well. No issues with breathing. Pain well controlled OBJECTIVE Blood pressure 148/74, pulse 70, temperature 98.2 ???F (36.8 ???C), temperature source Axillary, resp. rate 20, weight 232 lb (105.2 kg), SpO2 89%. Alert, oriented, no acute distress, comfortable 6-0 cuffed Shiley trach in place and patent, cuff down, no bleeding Non-labored breathing on trach collar, in no respiratory distress or no stridor Neck flat, soft, incisions C/D/I No evidence of erythema, fluid collection, dehiscence, or necrosis Tongue midline, shoulder shrug intact [place] tongue bruised Flap: Strong doppler present and biphasic - intraoral skin paddle Warm and appears well perfused with appropriate cap refill. Flap well seated; soft, no dehiscence evident Donor site: Left upper extremity with motor/sensation intact Donor site dressed, no drainage Drains holding suction with ssg output SCDs in place LABORATORY AND IMAGING STUDIES Temperature: [98.2 ???F (36.8 ???C)-98.7 ???F (37.1 ???C)] 98.2 ???F (36.8 ???C) Heart Rate: [60-80] 70 Respiratory Rate: [9-21] 20 BP: (116-156)/(61-80) 148/74 Arterial BP: (144-166)/(69-81) 152/71 Results for orders placed or performed during the hospital encounter of 06/10/24 (from the past 97751 hour(s)) COMPLETE BLOOD COUNT Collection Time: 06/13/24 5:31 AM Result Value Ref Range WBC 7.5 4.5 - 11.5 K/uL RBC 3.72 (L) 4.50 - 5.90 M/uL Hemoglobin 11.5 (L) 13.9 - 16.3 g/dL Hematocrit 34.5 (L) 41.0 - 53.0 % MCV 93 80 - 100 fL MCH 30.8 26.0 - 34.0 pg MCHC 33.3 32.0 - 35.9 g/dL Platelet 169 150 - 400 K/uL RDW-CV 15.1 (H) 11.5 - 14.5 % MPV 9.1 7.5 - 11.2 fL *Note: Due to a large number of results and/or encounters for the requested time period, some results have not been displayed. A complete set of results can be found in Results Review. Fluid Management (24hrs): Intake/Output last 3 shifts: Date 06/13/24 0700 - 06/14/24 0659 Shift [id number] 0313-8117 [id number] 24 Hour Total INTAKE I.V.(mL/kg/hr) 75 75 NG / GT 60 60 Shift Total(mL/kg) 135(1.3) 135(1.3) OUTPUT Urine(mL/kg/hr) 125 125 Shift Total(mL/kg) 125(1.2) 125(1.2) Weight (kg) 105.2 105.2 105.2 105.2 ASSESSMENT Admitted Diagnosis: squamous cell carcinoma of tongue Surgeon(s): Latrice Mi 3 Days Post-Op 74 yo male with tongue cancer, now POD 3 s/p trach, resection of tongue SCCa, neck dissection, and reconstruction with radial forearm free tissue transfer and tracheostomy on 06/10/2024 Flap Intraoral skin paddle Doppler: internal and external Donor Site: left radial forearm PLAN HEENT: -Q3H dopplers per nursing and Q6H resident flap check -ROBERTH Drains to bulb suction; monitor output and strip q4H; plan to remove after POD3 when output appropriate -ASA 81 mg x 7 days per flap protocol -Bacitracin to incisions TID x 3 days, then switch to vaseline TID x 14 days - Vaseline for his lips AIRWAY/PULM: -6.0 cuffed Shiley -> tentative plan for trach change on POD 5 to 4.0 cuffless Shiley -Humidified trach collar at all times -Wean O2 as tolerated -Standard trach care/suctioning/teaching -IS - Routine trach care - Keep plastic obturator (should be in small biohazard bag) in patient's room at all times in case of accidental decannulation. Obturators can help replace tracheostomies if they fall out, especially in the early post-operative period. To use them, take out the inner cannula (plastic inner tubing that clips onto trach) and put the obturator in. Once trach is replaced, promptly remove the obturator and replace it with the inner cannula. - Keep extra trach (6-0 cuffed Shiley) bedside for emergencies NEURO/ANALGESIA: -Oxycodone 5/10 q6 prn -Scheduled acetaminophen ID: -Unasyn x 4 days (End 06/14) -Trend daily labs CARDS: -HDS, monitor H/H -Transfuse for Hgb < 7 - Discontinued arterial line on POD1 : - Voiding spontaneously -Monitor urine output FEN/GI: -Strict NPO with TFs via DHT; adv TF today, will bolus once at goal -Zofran, PPI -PO trial when cleared by ENT -Senna BID ENDO: -Monitor blood glucose -Replace lytes PRN EXTREM: -Bolster down/wound vac down on 06/16 -Split thickness dressing down on 06/15 -> open to air for 4 hrs and then Eucerin/Aquaphor TID -Bacitracin to incisions TID for 3 days, then switch to vaseline. PPX: -subcutaneous Hep -SCDs in place while in bed -PT/OT consult -OOB to chair TID. OTHER: -Consults: SICU, PT/OT -Pertinent PMHx: HTN -Pathology: pending Dispo: ICU, Stepdown status 06/13, transfer to floor 06/14 - Will need trach supplies, enteral tube feeds - Case management for home health vs SNF placement - Plan for discharge around 06/16-06/17 Appointments/Follow-up: Latrice Mi 06/23[facility]08-31-2024 Note OTOLARYNGOLOGY HEAD AND NECK SURGERY PROGRESS NOTE SUBJECTIVE NAEON AF VSS, on trach collar Doing well overall. Increased darkening noted to anterior portion of [place] tongue OBJECTIVE Blood pressure 194/80, pulse 77, temperature 98.6 ???F (37 ???C), temperature source Oral, resp. rate 10, weight 232 lb (105.2 kg), SpO2 95%. Alert, oriented, no acute distress, comfortable 6-0 cuffed Shiley trach in place and patent, cuff down, no bleeding Non-labored breathing on trach collar, in no respiratory distress or no stridor Neck flat, soft, incisions C/D/I No evidence of erythema, fluid collection, dehiscence, or necrosis Tongue midline, shoulder shrug intact [place] tongue bruised Flap: Strong doppler present and biphasic - intraoral skin paddle Warm and appears well perfused with appropriate cap refill. Flap well seated; soft, no dehiscence evident Donor site: Left upper extremity with motor/sensation intact Donor site dressed, no drainage Drains holding suction with ssg output SCDs in place LABORATORY AND IMAGING STUDIES Temperature: [97.7 ???F (36.5 ???C)-98.7 ???F (37.1 ???C)] 98.6 ???F (37 ???C) Heart Rate: [53-95] 77 Respiratory Rate: [10-28] 10 BP: (135-194)/(54-80) 194/80 Arterial BP: (133-173)/(60-78) 166/77 Results for orders placed or performed during the hospital encounter of 06/10/24 (from the past 99011 hour(s)) COMPLETE BLOOD COUNT Collection Time: 06/12/24 4:29 AM Result Value Ref Range WBC 9.3 4.5 - 11.5 K/uL RBC 4.00 (L) 4.50 - 5.90 M/uL Hemoglobin 12.4 (L) 13.9 - 16.3 g/dL Hematocrit 36.9 (L) 41.0 - 53.0 % MCV 92 80 - 100 fL MCH 31.0 26.0 - 34.0 pg MCHC 33.5 32.0 - 35.9 g/dL Platelet 162 150 - 400 K/uL RDW-CV 14.8 (H) 11.5 - 14.5 % MPV 8.2 7.5 - 11.2 fL *Note: Due to a large number of results and/or encounters for the requested time period, some results have not been displayed. A complete set of results can be found in Results Review. Fluid Management (24hrs): Intake/Output last 3 shifts: ASSESSMENT Admitted Diagnosis: squamous cell carcinoma of tongue Surgeon(s): Latrice Mi 2 Days Post-Op 74 yo male with tongue cancer, now POD 2 s/p trach, resection of tongue SCCa, neck dissection, and reconstruction with radial forearm free tissue transfer and tracheostomy on 06/10/2024 Flap Intraoral skin paddle Doppler: internal and external Donor Site: left radial forearm PLAN HEENT: -Q2H dopplers per nursing and Q6H resident flap check -ROBERTH Drains to bulb suction; monitor output and strip q4H; plan to remove after POD3 when output appropriate -ASA 81 mg x 7 days per flap protocol -Bacitracin to incisions TID x 3 days, then switch to vaseline TID x 14 days - Vaseline for his lips AIRWAY/PULM: -6.0 cuffed Shiley -> tentative plan for trach change on POD 5 to 4.0 cuffless Shiley -Humidified trach collar at all times -Wean O2 as tolerated -Standard trach care/suctioning/teaching -IS - Routine trach care - Keep plastic obturator (should be in small biohazard bag) in patient's room at all times in case of accidental decannulation. Obturators can help replace tracheostomies if they fall out, especially in the early post-operative period. To use them, take out the inner cannula (plastic inner tubing that clips onto trach) and put the obturator in. Once trach is replaced, promptly remove the obturator and replace it with the inner cannula. - Keep extra trach (6-0 cuffed Shiley) bedside for emergencies NEURO/ANALGESIA: -DRYWALL CONTRACTOR x 48 hrs (end 06/12) -> Oxycodone q6 prn -Scheduled acetaminophen ID: -Unasyn x 4 days -Trend daily labs CARDS: -HDS, monitor H/H -Transfuse for Hgb < 7 - Discontinued arterial line on POD1 : -Discontinue cervantes on POD2 -Monitor urine output FEN/GI: -Strict NPO with TFs via DHT; adv TF today, will bolus once at goal -Zofran, PPI -PO trial when cleared by ENT -Senna BID; add docusate and Miralax after POD 3 if no BM -Bolus TF after BM ENDO: -Monitor blood glucose -Replace lytes PRN EXTREM: -Bolster down/wound vac down on 06/18 -Split thickness dressing down on POD9/5 -> open to air for 4 hrs and then Eucerin/Aquaphor TID -Bacitracin to incisions TID for 3 days, then switch to vaseline. PPX: -subcutaneous Hep POD1 -SCDs in place while in bed -PT/OT consult -OOB to chair TID. OTHER: -Consults: SICU, PT/OT -Pertinent PMHx: HTN -Pathology: pending Dispo: ICU, transfer to floor POD3 - Will need trach supplies, enteral tube feeds - Case management for home health vs SNF placement - Plan for discharge around POD6-7 Appointments/Follow-up: Latrice Mi 06/23[facility]08-30-2024 Consult note* Christiana Simpson, RD - 06/11/2024 10:50 AM EDTAssociated Order(s): NUTRITION NEW CONSULT Images from the original note were not included. 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 Past Surgical History: Procedure Laterality Date DISSECTION, RADICAL NECK, FREE FLAP N/A 06/10/2024 Procedure: PARTIAL GLOSSECTOMY, TRACHEOSTOMY, NECK DISSECTION; Surgeon: Clayton Villarreal MD; Location: PERIOPERATIVE SERVICES; Service: Otolaryngology DISSECTION, RADICAL NECK, MODIFIED N/A 06/10/2024 Procedure: LEFT RADIAL FOREARM FREE FLAP, SPLIT THICKNESS SKIN GRAFT FROM THIGH; Surgeon: Giorgio Mi MD; Location: PERIOPERATIVE SERVICES; Service: Otolaryngology ESOPHAGOSCOPY RIGID N/A 06/10/2024 Procedure: ESOPHAGOSCOPY RIGID; Surgeon: Giorgio Mi MD; Location: PERIOPERATIVE SERVICES; Service: Otolaryngology LARYNGOSCOPY N/A 06/10/2024 Procedure: LARYNGOSCOPY, DIRECT; Surgeon: Giorgio Mi MD; Location: PERIOPERATIVE SERVICES; Service: Otolaryngology has No Known Allergies. Labs: Basic Metabolic Panel 06/11/2024 06/10/2024 06/10/2024 06/10/2024 5:31 AM 8:21 PM 1:48 PM 9:12 AM Na 139 141 141 142 K 4.1 4.6 3.9 4.0 Cl 107 107 110 107 CO2 25 25 -- -- Gap 11 14 -- -- Glu 148 149 143 142 BUN 25 24 -- -- Cr 1.10 1.22 -- -- Ca 8.9 9.1 -- -- Mg 1.8 1.6 -- -- PO4 3.8 4.0 -- -- CBC (last 3 years, up to 8 values) 06/11/2024 06/10/2024 06/10/2024 06/10/2024 05/26/2024 4:42 AM 8:04 PM 1:48 PM 9:12 AM 8:16 AM WBC 9.8 10.4 -- -- 8.5 RBC 3.97 4.42 -- -- 5.30 Hgb 12.2 13.3 12.7 14.1 16.4 Hct 36.6 40.6 39.0 43.2 49.8 MCV 92 92 -- -- 94 RDW 15.1 14.9 -- -- 15.1 Plt 173 160 -- -- 148 LFT's (last 3 years, up to 8 values) No lab values to display. Lipids (last 3 years, up to 8 values) No lab values to display. Arterial Blood Gases T Site Mode LPM FIO2 pH pCO2 pO2 Sat Base Ex HCO3- A-a 06/10/24 1348 22 06/10/24 1348 7.407 35.9 115 98.2 -1.6 22 No results found for: HBA1C Accuchecks: Fingerstick Glucose (last 72 hours) None No results found for: B12 No results found for: FOL No results found for: FE No results found for: VITD25 No results found for: ZINC Vital sign ranges over the past 24 hours (retrieved 06/11/2024 at 10:50 AM): Tmax (24 hours): 99.3 F (37.4 C) Pulse Av.4 Min: 53 Max: 101 Systolic (24hrs), Av , Min:132 , Max:168 Diastolic (24hrs), Av, Min:54, Max:85 MAP (mmHg) Av.5 mmHg Min: 77 mmHg Max: 104 mmHg Resp Av.3 Min: 12 Max: 29 SpO2 Av.7 % Min: 85 % Max: 100 % Most Recent Ventilator Settings: FiO2 (%): 50 LastBM: none yet Nutritionally Significant Meds: heparin (porcine), 5,000 Units, Subcutaneous, Every End of Shift busPIRone, 10 mg, Oral, Daily atorvastatin, 80 mg, Oral, Every evening senna, 5 mL, Oral, At Bedtime acetaminophen, 1,000 mg, NG Tube, Every 8 hours chlorhexidine oral care kit with toothette, 15 mL, Oral, EVERY 12 HOURS ampicillin-sulbactam, 3,000 mg, Intravenous, Q6H Antibiotic bacitracin, , Topical, 3x Daily aspirin, 81 mg, NG Tube, Daily metoprolol, 25 mg, NG Tube, BID [START ON 06/13/2024] vitamin A & D, , Topical, 3x Daily Tube feed, , Last Rate: 20 mL/hr at 06/10/24 2030 HYDROmorphone, lactated ringers, , Last Rate: 75 mL/hr at 06/11/24 0900 Diet Order: NPO Nutrition Focused Physical Exam Muscle loss: Confucianism region: well defined Clavicle region: not visible/not prominent Scapula region: no depressions Hand: muscle bulges Anterior thigh: well rounded Posterior calf: well developed Fat loss: Orbital region: bulged fat pads Tricep/bicep region: ample fat tissue Rib/back region: chest full/ribs do not show Edema: tongue, oral nonpitting Hair/Nails/Skin: trach, oral, L arm surgical sites, ROBERTH drains x3 Eyes/Nose/Mouth: corpak Height: Data Unavailable 67 inches Admit Weight: 105.2 kg Current Weight: 105.2 kg IBW: 67.3 kg Current BMI: 36.34 Weight hx: Kg Lbs 05/11/2024 1:09 PM 107.094 kg 236 lb 1.6 oz 05/26/2024 8:32 AM 105.235 kg 232 lb 05/26/2024 9:17 AM 105.28 kg 232 lb 1.6 oz 06/10/2024 6:47 AM 105.235 kg 232 lb Estimated needs: using admit wt 2779-3656 kcal/d 25-30 kcal/kg [MSJ 1750 saravanan] 135g pro/d 2 g pro/kg of ibw 2600 mL/d 25 mL/kg Assessment: 74 yo male w/ pmh of HLD, HTN, tongue SCC, oral dysphagia now s/p trach, resection of tongue SCCa, neck dissection with radial forearm free flap reconstruction w/ STSG [Dr Villarreal 06/10/2024]. 06/10 Admitted to SICU post op for airway monitoring and flap checks; Trach collar; NPO; LR @75 06/11 Trickle TF started - pivot 1.5 @ 20 mL/hr Met with pt bedside. Pts son, daughter, and also present during this visit. Briefly reviewed nutrition plan in acute setting and transition out of hospital with feeding tube should this become indicated. TF noted to be running at 20 mL/hr - pt communicates via writing board and reports tolerating well at this time. 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 Eating regular solid foods such as hamburgers with just oral pain reported but no choking. Was seen by OP rough rib grader and RD earlier in month. OFFICE SYSTEM ANALYST recommending dental soft foods though pt continued to eat regular solids. Per pt was focusing on increasing protein intake from foods per RD recommendations but didn't purchase any ONS. Family asked many questions pertaining to discharge plan should he require home TF. reports she would have toadminister feeds. Daughter lives next door and could assist between working hours. RD to monitor discharge plan/needs Nutrition Problems: ENT surgery Enteral nutrition Nutrition Interventions: - Enteral nutrition Impact Peptide 1.5/Pivot 1.5 @ 20 mL/hr increasing 10 mL q4hr until goal @ 70 mL/hr continuous Goal provides 1680 mL, 2520 calories, 157g protein - Transition to bolus feeds once tolerating continuous feeds at goal volume Impact Peptide 1.5 [sub Pivot 1.5] 400 mL 4x/daily 8a, 12p, 4p, and 8p - ok to run each feed over 1hr on pump Water flush: 120 mL before and 120 mL after each TF bolus - May transition to standard TF/ONS prior to d/c home Boost VHC - 360 mL (1.5 cartons) at 8a and 12p + 240 mL (1 carton) at 4p and 8p- do not use pump. Please give via syringe or gravity bag Water flush: 150 mL before and 150 mL after each TF bolus - Monitor discharge plan/needs Christiana Simpson RD, LD, [facility] Personal Pager: [phone] (Mon-Fri 7a-3:30p) Nutrition All Terrain Vehicle Technician Pager (evenings/weekends 7a-7p): [phone] 60 minutes Dietitian vs DietaryTech: Dietitian and Test And Turn Up Technician [id number] Consult note* Lyssa Ott, PT - 06/11/2024 9:29 AM EDT Associated Order(s): IP PHYSICAL THERAPY SERVICE REQUEST PHYSICAL THERAPY ACUTE EVALUATION Referral received, chart reviewed. Patient seen from 8:37am to 9:00am on GC5W unit for 23 minutes. Co-session with OT necessary for safe and professional assist with mobility assessment and training. Admit date/time: 06/10/2024 5:42 AM Reason for Admit: scheduled procedure Diagnosis: Left lateral tongue squamous cell carcinoma Precautions: Falls NPO Full Code OOB 3x/day with assist Procedures this admit: 06/10/[address] Mi Direct laryngoscopy with biopsy 2. Rigid esophagoscopy 3. Left radial forearm free tissue transfer with microvascular anastomosis 4. Complex vestibuloplasty 5. Split thickness skin graft from the left thigh 4 x 6 cm to left forearm defect 6. Application of short-arm splint to left forearm donor site trach, resection of tongue SCCa, neck dissection Past Medical and Surgical History: PMH: HLD, HTN, tongue SCCA No past medical history on file. PSH: Past Surgical History: Procedure Laterality Date DISSECTION, RADICAL NECK, FREE FLAP N/A 06/10/2024 Procedure: PARTIAL GLOSSECTOMY, TRACHEOSTOMY, NECK DISSECTION; Surgeon: Clayton Villarreal MD; Location: PERIOPERATIVE SERVICES; Service: Otolaryngology DISSECTION, RADICAL NECK, MODIFIED N/A 06/10/2024 Procedure: LEFT RADIAL FOREARM FREE FLAP, SPLIT THICKNESS SKIN GRAFT FROM THIGH; Surgeon: Giorgio Mi MD; Location: PERIOPERATIVE SERVICES; Service: Otolaryngology ESOPHAGOSCOPY RIGID N/A 06/10/2024 Procedure: ESOPHAGOSCOPY RIGID; Surgeon: Giorgio Mi MD; Location: PERIOPERATIVE SERVICES; Service: Otolaryngology LARYNGOSCOPY N/A 06/10/2024 Procedure: LARYNGOSCOPY, DIRECT; Surgeon: Giorgio Mi MD; Location: PERIOPERATIVE SERVICES; Service: Otolaryngology Identification was verified by patient's id band and date of . Risks and Benefits of physical therapy: Patient informed of risks and benefits of treatment SUBJECTIVE: Patient Subjective: Patient able to answer yes/no questions. Attempts to verbalize at times, but was able to write answers to questions as needed. 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 Patient reports intermittent use of crutch for ambulation. Home: Lives with in one story home. 0 steps to enter. 0 steps to bedroom/bathrooms. Assistance available: available 05/05 Equipment available: cane , rolling walker, wheelchair, tub bench, crutches, and grab bars in bathroom. 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 Patient ambulates with wide RYAN Endurance: Impaired Patient/Family Education: Instructed Patient in roles of therapy. Patient educated on importance of OOB mobility during hospital stay to maintain functional endurance and independence and to decrease risk of medical complications. Patient up in chair with call light in reach. Chair alarm intact. DME: With Patients permission ordered no equipment via [employer] Order. If any questions contact [facility] DME Provider at [phone]. 06/11/2024 6 Clicks Basic Mobility PT Difficulty turning over in bed 3 Difficulty sitting down and standing up from a chair with arms 3 Difficulty moving from lying on back to sitting on the side of the bed 3 Help from another person moving to and from bed to a chair 3 Help from another person to walk in hospital room 3 Help from another person climbing 3-5 steps with a railing 3 PT 6 Clicks Score 18 6 Click Score Guidelines: 1 - Total = Requires total assistance, or cannot do at all. 2 - A lot = Requires a lot of help (maximun to moderate assistance) Can use assistive devices. 3 - A little = Requires a little help (supervision, minimal assistance) Can use assistive devices. 4 - None = Does not require any help and does the activity independently. Can use assistive devices. ASSESSMENT: Quirino Cordero is a 74 year old yo male admitted to [facility] s/p trach, resection of tongue SCCa, neck dissection. Patient is mobilizing near baseline levels but limited by decreased endurance and balance. Patient would benefit from PT services during acute stay, Patient is functionally appropriate for discharge home once medically cleared. Will continue to follow patient while in hospital as appropriate. Problems: Decreased ROM/strength Decreased functional mobility Decreased endurance Decreased balance Decreased education in exercise/precautions Impaired safety awareness Rehabilitation Potential: Good Goals (to be achieved by 2 days or by discharge from acute care): Patient will achieve acceptable level of pain control to allow participation in therapy. Patient will increase bed mobility to modified independent Patient will perform sit to/from stand with no device with modified independent Patient will transfer bed to/from chair with no device with modified independent Patient will ambulate 150 feet with no device with modified independent Patient will increase ROM/Strength/Endurance/Balance to allow for above goals. PLAN OF CARE: Frequency: Patient to be seen 3-5 times a week Interventions: Functional mobility ROM/Strengthening Home exercise program Discharge planning and equipment ordering as needed Patient /Family education The evaluation findings and treatment plan were discussed with the patient/family. The patient/family indicated understanding and agreement with the plan. Lyssa Ott PT NA = Not Assessed, I = Independent, TX = Modified Independent, Sup = Supervised, Set up = Physical Assistance for Set-up Only, Min = Minimal Assistance, Mod = Moderate Assistance, Max = Max assistance; Dep = Dependent; AROM = Active Range of Motion; PROM = Passive Range of Motion; MMT = Manual Muscle Test; LE = Lower Extremity [id number] NotePHYSICAL THERAPY ACUTE EVALUATION Referral received, chart reviewed. Patient seen from 8:37am to 9:00am on GC5W unit for 23 minutes. Co-session with OT necessary for safe and professional assist with mobility assessment and training. Admit date/time: 06/10/2024 5:42 AM Reason for Admit: scheduled procedure Diagnosis: Left lateral tongue squamous cell carcinoma Precautions: Falls NPO Full Code OOB 3x/day with assist Procedures this admit: 06/10/[address] Mi Direct laryngoscopy with biopsy 2. Rigid esophagoscopy 3. Left radial forearm free tissue transfer with microvascular anastomosis 4. Complex vestibuloplasty 5. Split thickness skin graft from the left thigh 4 x 6 cm to left forearm defect 6. Application of short-arm splint to left forearm donor site trach, resection of tongue SCCa, neck dissection Past Medical and Surgical History: PMH: HLD, HTN, tongue SCCA No past medical history on file. PSH: Past Surgical History: Procedure Laterality Date DISSECTION, RADICAL NECK, FREE FLAP N/A 06/10/2024 Procedure: PARTIAL GLOSSECTOMY, TRACHEOSTOMY, NECK DISSECTION; Surgeon: Clayton Villarreal MD; Location: PERIOPERATIVE SERVICES; Service: Otolaryngology DISSECTION, RADICAL NECK, MODIFIED N/A 06/10/2024 Procedure: LEFT RADIAL FOREARM FREE FLAP, SPLIT THICKNESS SKIN GRAFT FROM THIGH; Surgeon: Giorgio Mi MD; Location: PERIOPERATIVE SERVICES; Service: Otolaryngology ESOPHAGOSCOPY RIGID N/A 06/10/2024 Procedure: ESOPHAGOSCOPY RIGID; Surgeon: Giorgio Mi MD; Location: PERIOPERATIVE SERVICES; Service: Otolaryngology LARYNGOSCOPY N/A 06/10/2024 Procedure: LARYNGOSCOPY, DIRECT; Surgeon: Giorgio Mi MD; Location: PERIOPERATIVE SERVICES; Service: Otolaryngology Identification was verified by patient's id band and date of . Risks and Benefits of physical therapy: Patient informed of risks and benefits of treatment SUBJECTIVE: Patient Subjective: Patient able to answer yes/no questions. Attempts to verbalize at times, but was able to write answers to questions as needed. 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 Patient reports intermittent use of crutch for ambulation. Home: Lives with in one story home. 0 steps to enter. 0 steps to bedroom/bathrooms. Assistance available: available 05/05 Equipment available: cane , rolling walker, wheelchair, tub bench, crutches, and grab bars in bathroom. 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 Patient ambulates with wide RYAN Endurance: Impaired Patient/Family Education: Instructed Patient in roles of therapy. Patient educated on importance of OOB mobility during hospital stay to maintain functional endurance and independence and to decrease risk of medical complications. Patient up in chair with call light in reach. Chair alarm intact. DME: With Patients permission ordered no equipment via [employer] Order. [facility] at [phone]. 06/11/2024 6 Clicks Basic Mobility PT Difficulty turning over in bed 3 Difficulty sitting down and standing up from a chair with arms 3 Difficulty moving from lying on back to sitting on the side of the bed 3 Help from another person moving to and from bed to a chair 3 Help from another person to walk in hospital room 3 Help from another person climbing 3-5 steps with a railing 3 PT 6 Clicks Score 18 6 Click Score Guidelines: 1 - Total = Requires total assistance, or cannot do at all. 2 - A lot = Requires a lot of help (maximun to moderate assistance) Can use assistive devices. 3 - A little = Requires a little help (supervision, minimal assistance) Can use assistive devices. 4 - None = Does not require any help and does the activity independently. Can use assistive devices. ASSESSMENT: Quirino Cordero is a 74 year old yo male admitted to [facility] s/p trach, resection of tongue SCCa, neck dissection. Patient is mobilizing near baseline levels but limited by decreased endurance and balance. Patient would benefit from PT services during acute stay, Patient is functionally appropriate for discharge home once medically cleared. Will continue to follow patient while in hospital as appropriate. Problems: Decreased ROM/strength Decreased functional mobility Decreased endurance Decreased balance Decreased education in exercise/precau (more content not included)...[employer] [id number] Consult note* Kevin Sandoval, OT - 06/11/2024 8:37 AM EDTAssociated Order(s): IP OCCUPATIONAL THERAPY SERVICE REQUEST OCCUPATIONAL THERAPY INITIAL EVALUATION Patient seen from 0837 to 0900 on 5W unit for 23 minutes. Co-tx with PT due to high medical complexity, safety concerns, assist of 2 required for mobility and/or advanced airway in place. Admit date: 06/10/2024 5:42 AM Reason for Admit: scheduled procedure Diagnosis: Left lateral tongue squamous cell carcinoma Precautions/Activity Order: High falls Full code NPO Activity: OOB 3x/day Procedures this admit: 06/10/24. Dr. Mi : Direct laryngoscopy with biopsy Rigid esophagoscopy 3. Left radial forearm free tissue transfer with microvascular anastomosis 4. Complex vestibuloplasty 5. Split thickness skin graft from the left thigh 4 x 6 cm to left forearm defect 6. Application of short-arm splint to left forearm donor site Past Medical and Surgical History: PMH:HLD, HTN, tongue SCCA PSH: Past Surgical History: Procedure Laterality Date DISSECTION, RADICAL NECK, FREE FLAP N/A 06/10/2024 Procedure: PARTIAL GLOSSECTOMY, TRACHEOSTOMY, NECK DISSECTION; Surgeon: Clayton Villarreal MD; Location: PERIOPERATIVE SERVICES; Service: Otolaryngology DISSECTION, RADICAL NECK, MODIFIED N/A 06/10/2024 Procedure: LEFT RADIAL FOREARM FREE FLAP, SPLIT THICKNESS SKIN GRAFT FROM THIGH; Surgeon: Giorgio Mi MD; Location: PERIOPERATIVE SERVICES; Service: Otolaryngology ESOPHAGOSCOPY RIGID N/A 06/10/2024 Procedure: ESOPHAGOSCOPY RIGID; Surgeon: Giorgio Mi MD; Location: PERIOPERATIVE SERVICES; Service: Otolaryngology LARYNGOSCOPY N/A 06/10/2024 Procedure: LARYNGOSCOPY, DIRECT; Surgeon: Giorgio Mi MD; Location: PERIOPERATIVE SERVICES; Service: Otolaryngology SUBJECTIVE: Patient Subjective: Patient nonverbal a this time however able to communicate via writing pad Patient Identified Goal(s):none stated - agreeable to therapy and sitting up in chair. Home Living Situation Prior Functional Status: Independent Living independent with Activities of Daily Living Independent Driving Independent Ambulation without assistive device Independent with Instrumental Activities of Daily Living Assistance Available at Home: lives with . 05/05 available. Patient lives in a 1 story home 0 stairs to enter. Full Bathroom on main level. Bedroom on main level. Equipment available at home: RW, cane, wheelchair, tub seat, grab bars , crutches OBJECTIVE: Patient Identification: patient verbalizing his/her name and date of . 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 Ambulate short distance within room. Steady pace,no LOB. Vital signs stable while ambulating. RN present in room. Bed Mobility x Supine to sit EOB , elevated HOB and bed rail used. Endurance for Self Care: Impaired Static Sitting Balance: WFL Dynamic Sitting Balance: WFL UE Motor: LUE in short arm splint. RUE WFL for ADSLS Vision/Perception: WFL Cognition: Orientation: Oriented to person, place, and date Follows Commands: WFL Attention: WNL Memory: WFL Problem Solving: WFL Safety/Judgement: insight beginning to develop Sequencing: WFL Other Specialized Tests: None Patient/Family Education: Instructed patient in roles of therapy and instructed in roles, goals, treatment plan: demonstrated good verbal understanding Patient remained seated in bedside chair end of session. Chair alarm active. Call lima and telephone within reach. Patient instructed to call for staff assist when ready to return to bed and for all mobility. RN aware of patient location and mobility status. DME: With Patients permission ordered no equipment via [employer] Order. If any questions contact [facility] DME Provider at [phone]. 06/11/2024 6 Clicks Daily Activity OT Help from another person Eating meals 1 Help from another person taking care of personal grooming 3 Help from another person bathing 2 Help from another person putting on and taking off regular upper body clothing 2 Help from another person putting on and taking off regular lower body clothing 2 Help from another person toileting 2 OT 6 Clicks Score 12 6 Click Score Guidelines: 1 - Unable = Total/Dependent Assist 2 - A lot = Max/Moderate Assist 3 - A little = Minimum/Contact Guard Assist/Supervision 4 - Non = Modified [place]/Independent ASSESSMENT: Anticipate patient will be functionally appropriate for discharge home once medically cleared. Willcontinue to follow patient while in hospital as appropriate. Recommend PRN family/caregiver assist for ADLS and IADLs. Rehabilitation Potential: Good Problem List: decreased ADLs, impaired upper extremity motor function, decreased endurance, decreased functional transfers/mobility, impaired balance, decreased home management tasks/IADLs, decreasedfunctional activity tolerance, and increased pain Goals (to be achieved by discharge from acute care): Patient will perform grooming with Modified Independent Patient will dress upper body with Modified Independent Patient will dress lower body with Modified Independent Patient will perform bed mobility with Modified Independent Patient will perform bathing with Distant supervision Patient will perform toileting with Modified Independent Patient will perform bed transfers with Modified Independent PLAN: Quirino Cordero will be seen 1-3 times a week. Treatment to include: Functional AROM/Strengthening, functional mobility training, ADL retraining, functional endurance activities, work simplification / energy conservation, home management retraining, functional task simulation, adaptive equipment / compensatory strategy training, patient / family education and discharge planning, referral to appropriate support services, and pain Management able to discuss the evaluation findings and treatment plan with the patient/family. The patient/family did participate in the development of plan and goals. Kevin Sandoval OTR/L NA = Not Assessed, I = Independent, TX = Modified Independent, Sup = Supervised, Set up = Physical Assistance for Set-up Only, Min = Minimal Assistance, Mod = Moderate Assistance, Max = Max assistance; Dep = Dependent; AROM = Active Range of Motion;PROM=Passive Rangeof Motion; MMT = Manual Muscle Test; UB = Upper Body; LB = Lower Body [id number] NoteOCCUPATIONAL THERAPY INITIAL EVALUATION Patient seen from 0837 to 0900 on 5W unit for 23 minutes. Co-tx with PT due to high medical complexity, safety concerns, assist of 2 required for mobility and/or advanced airway in place. Admit date: 06/10/2024 5:42 AM Reason for Admit: scheduled procedure Diagnosis: Left lateral tongue squamous cell carcinoma Precautions/Activity Order: High falls Full code NPO Activity: OOB 3x/day Procedures this admit: 06/10/24. Dr. Mi : Direct laryngoscopy with biopsy Rigid esophagoscopy 3. Left radial forearm free tissue transfer with microvascular anastomosis 4. Complex vestibuloplasty 5. Split thickness skin graft from the left thigh 4 x 6 cm to left forearm defect 6. Application of short-arm splint to left forearm donor site Past Medical and Surgical History: PMH:HLD, HTN, tongue SCCA PSH: Past Surgical History: Procedure Laterality Date DISSECTION, RADICAL NECK, FREE FLAP N/A 06/10/2024 Procedure: PARTIAL GLOSSECTOMY, TRACHEOSTOMY, NECK DISSECTION; Surgeon: Clayton Villarreal MD; Location: PERIOPERATIVE SERVICES; Service: Otolaryngology DISSECTION, RADICAL NECK, MODIFIED N/A 06/10/2024 Procedure: LEFT RADIAL FOREARM FREE FLAP, SPLIT THICKNESS SKIN GRAFT FROM THIGH; Surgeon: Giorgio Mi MD; Location: PERIOPERATIVE SERVICES; Service: Otolaryngology ESOPHAGOSCOPY RIGID N/A 06/10/2024 Procedure: ESOPHAGOSCOPY RIGID; Surgeon: Giorgio Mi MD; Location: PERIOPERATIVE SERVICES; Service: Otolaryngology LARYNGOSCOPY N/A 06/10/2024 Procedure: LARYNGOSCOPY, DIRECT; Surgeon: Giorgio Mi MD; Location: PERIOPERATIVE SERVICES; Service: Otolaryngology SUBJECTIVE: Patient Subjective: Patient nonverbal a this time however able to communicate via writing pad Patient Identified Goal(s):none stated - agreeable to therapy and sitting up in chair. Home Living Situation Prior Functional Status: Independent Living independent with Activities of Daily Living Independent Driving Independent Ambulation without assistive device Independent with Instrumental Activities of Daily Living Assistance Available at Home: lives with . 05/05 available. Patient lives in a 1 story home 0 stairs to enter. Full Bathroom on main level. Bedroom on main level. Equipment available at home: RW, cane, wheelchair, tub seat, grab bars , crutches OBJECTIVE: Patient Identification: patient verbalizing his/her name and date of . 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 Ambulate short distance within room. Steady pace, no LOB. Vital signs stable while ambulating. RN present in room. Bed Mobility x Supine to sit EOB , elevated HOB and bed rail used. Endurance for Self Care: Impaired Static Sitting Balance: WFL Dynamic Sitting Balance: WFL UE Motor: LUE in short arm splint. RUE WFL for ADSLS Vision/Perception: WFL Cognition: Orientation: Oriented to person, place, and date Follows Commands: WFL Attention: WNL Memory: WFL Problem Solving: WFL Safety/Judgement: insight beginning to develop Sequencing: WFL Other Specialized Tests: None Patient/Family Education: Instructed patient in roles of therapy and instructed in roles, goals, treatment plan: demonstrated good verbal understanding Patient remained seated in bedside chair end of session. Chair alarm active. Call lima and telephone within reach. Patient instructed to call for staff assist when ready to return to bed and for all mobility. RN aware of patient location and mobility status. DME: With Patients permission ordered no equipment via [employer] Order. [facility] at [phone]. 06/11/2024 6 Clicks Daily Activity OT Help from another person Eating meals 1 Help from another person taking care of personal grooming 3 Help from another person bathing 2 Help from another person putting on and taking off regular upper body clothing 2 H (more content not included)...[employer] [id number] Note OTOLARYNGOLOGY HEAD AND NECK SURGERY PROGRESS NOTE SUBJECTIVE NAEON AF VSS, on trach collar Doing well overall OBJECTIVE Blood pressure 144/58, pulse 57, temperature 97.7 ???F (36.5 ???C), temperature source Oral, resp. rate 14, weight 232 lb (105.2 kg), SpO2 97%. Alert, oriented, no acute distress, comfortable 6-0 cuffed [address]iley trach in place and patent, cuff down, no bleeding Non-labored breathing on trach collar, in no respiratory distress or no stridor Neck flat, soft, incisions C/D/I No evidence of erythema, fluid collection, dehiscence, or necrosis Tongue midline, shoulder shrug intact [place] tongue bruised Flap: Strong doppler present and biphasic - intraoral skin paddle Warm and appears well perfused with appropriate cap refill. Flap well seated; soft, no dehiscence evident Donor site: Left upper extremity with motor/sensation intact Donor site dressed, no drainage Drains holding suction with ssg output SCDs in place [facility]ORATORY AND IMAGING STUDIES Temperature: [97.7 ???F (36.5 ???C)-99.3 ???F (37.4 ???C)] 97.7 ???F (36.5 ???C) Heart Rate: [57-101] 57 Respiratory Rate: [12-29] 14 BP: (132-168)/(54-85) 144/58 Arterial BP: (126-171)/(54-84) 142/61 Results for orders placed or performed during the hospital encounter of 06/10/24 (from the past 46661 hour(s)) COMPLETE BLOOD COUNT Collection Time: 06/11/24 4:42 AM Result Value Ref Range WBC 9.8 4.5 - 11.5 K/uL RBC 3.97 (L) 4.50 - 5.90 M/uL Hemoglobin 12.2 (L) 13.9 - 16.3 g/dL Hematocrit 36.6 (L) 41.0 - 53.0 % MCV 92 80 - 100 fL MCH 30.8 26.0 - 34.0 pg MCHC 33.4 32.0 - 35.9 g/dL Platelet 173 150 - 400 K/uL RDW-CV 15.1 (H) 11.5 - 14.5 % MPV 8.3 7.5 - 11.2 fL *Note: Due to a large number of results and/or encounters for the requested time period, some results have not been displayed. A complete set of results can be found in Results Review. Fluid Management (24hrs): Intake/Output last 3 shifts: Date 06/11/24 0700 - 06/12/24 0659 Shift 2622-3798 1385-3259 1010-0025 24 Hour Total INTAKE I.V.(mL/kg/hr) 77.6 77.6 NG / GT 20 20 Shift Total(mL/kg) 97.6(0.9) 97.6(0.9) OUTPUT Urine(mL/kg/hr) 65 65 Shift Total(mL/kg) 65(0.6) 65(0.6) Weight (kg) 105.2 105.2 105.2 105.2 ASSESSMENT Admitted Diagnosis: squamous cell carcinoma of tongue Surgeon(s): Latrice Mi 1 Day Post-Op 74 yo male with tongue cancer, now POD 1 s/p trach, resection of tongue SCCa, neck dissection, and reconstruction with radial forearm free tissue transfer and tracheostomy on 06/10/2024 Flap Intraoral skin paddle Doppler: internal and external Donor Site: left radial forearm PLAN HEENT: -Q1H dopplers per nursing and Q6H resident flap check -ROBERTH Drains to bulb suction; monitor output and strip q4H; plan to remove after POD3 when output appropriate -ASA 81 mg x 7 days per flap protocol -Bacitracin to incisions TID x 3 days, then switch to vaseline TID x 14 days AIRWAY/PULM: -6.0 cuffed Shiley -> tentative plan for trach change on POD 5 to 4.0 cuffless Shiley -Humidified trach collar at all times -Wean O2 as tolerated -Standard trach care/suctioning/teaching -IS - Routine trach care - Keep plastic obturator (should be in small biohazard bag) in patient's room at all times in case of accidental decannulation. Obturators can help replace tracheostomies if they fall out, especially in the early post-operative period. To use them, take out the inner cannula (plastic inner tubing that clips onto trach) and put the obturator in. Once trach is replaced, promptly remove the obturator and replace it with the inner cannula. - Keep extra trach (6-0 cuffed Shiley) bedside for emergencies NEURO/ANALGESIA: -DRYWALL CONTRACTOR x 48 hrs -> Oxycodone q6 prn -Scheduled acetaminophen ID: -Unasyn x 4 days -Trend daily labs CARDS: -HDS, monitor H/H -Transfuse for Hgb < 7 - Discontinue arterial line on POD1 if HDS : -Discontinue cervantes on POD2 -Monitor urine output FEN/GI: -Strict NPO with TFs via DHT; ok to start trickle feeds today -Zofran, PPI -PO trial when cleared by ENT -Senna BID; add docusate and Miralax after POD 3 if no BM -Bolus TF after BM ENDO: -Monitor blood glucose -Replace lytes PRN EXTREM: -Bolster down/wound vac down on 06/18 -Split thickness dressing down on POD9/5 -> open to air for 4 hrs and then Eucerin/Aquaphor TID -Bacitracin to incisions TID for 3 days, then switch to vaseline. PPX: -subcutaneous Hep POD1 -SCDs in place while in bed -PT/OT consult -OOB to chair TID. OTHER: -Consults: SICU, PT/OT -Pertinent PMHx: HTN -Pathology: pending Dispo: ICU, transfer to floor POD3 - Will need trach supplies, enteral tube feeds - Case management for home health vs SNF placement - Plan for discharge around POD6-7 Appointments/Follow-up: Latrice Mi 06/23[facility] [facility] History and physical note* Ronald Thayer MD - 06/10/2024 6:30 PM EDT Images from the original note were not included. [facility] DIVISION OF ACUTE CARE SURGERY SURGICAL CRITICAL CARE HISTORY & PHYSICAL Reason for consultation: post-op respiratory monitoring Referring physician: HPI: 74 M pmh HLD, HTN, tongue SCCA now s/p trach, resection of tongue SCCa, neck dissection with radialforearm free flap reconstruction. Admitted to ICU post op for airway monitoring and flap checks. EBL: 200cc Fluid replacement: 500cc albumin, 3.8L IVF UOP: 935cc PMH: No past medical history on file. PSH: No past surgical history on file. MEDS: Prior to Admission Medications Prescriptions Last Dose Informant Patient Reported? Taking? ALPRAZolam (XANAX) 0.5 MG tablet Yes No Sig: TAKE 1 TABLET BY MOUTH AT BEDTIME IF NEEDED TO SLEEP WHILE TAKING STEROID aspirin 81 MG tablet Yes No Sig: Take 81 mg by mouth. Patient not taking: Reported on 05/26/2024 atorvastatin (LIPITOR) 80 mg tablet 06/09/2024 Yes Yes Si mg every evening. busPIRone (BUSPAR) 10 MG tablet 06/10/2024 Yes Yes ibuprofen (MOTRIN) 800 MG tablet Yes No Sig: Take 800 mg by mouth every 8 hours. irbesartan (AVAPRO) 75 MG tablet 06/09/2024 Yes Yes Sig: every evening. latanoprost (XALATAN) 0.005 % ophthalmic solution Yes No Sig: INSTILL 1 DROP INTO EACH EYE AT BEDTIME metoprolol (LOPRESSOR) 25 MG tablet 06/10/2024 Yes Yes Sig: Take 25 mg by mouth 2 times a day. naloxone 4 mg/0.1 mL nasal liquid No No Sig: Use 1 Taylors in one nostril (alternate sides) as needed for Drug Overdose for up to 1 dose. Every 2-3 mins. until help arrives. predniSONE (DELTASONE) 10 MG tablet > Month Yes No Sig: TAKE 4 TABLETS BY MOUTH TODAY, THEN 2 TABS ONCE DAILY FOR 4 DAYS, THEN 1 TAB ONCE DAILY FOR 4 DAYS, THEN 1/2 (ONE-HALF) TAB ONCE DAILY FOR 2 DAYS sildenafil citrate (VIAGRA) 100 MG tablet Yes No tramadol (ULTRAM) 50 MG tablet Past Week Yes No Sig: TAKE 1 TO 2 TABLETS BY MOUTH EVERY 8 HOURS NEEDED FOR TONGUE PAIN. Facility-Administered Medications: None ALL: No Known Allergies FH: No family history on file. SH: Social History Socioeconomic History Marital status: Unknown Tobacco Use Smoking status: Former Current packs/day: 0.00 Types: Cigarettes Quit date: 1974 Years since quittin.6 Smokeless tobacco: Never Substance and Sexual Activity Alcohol use: Not Currently Drug use: Not Currently Review Of Systems: Skin: negative Eyes: negative review of symptoms Ears/Nose/Throat: negative Respiratory: negative symptoms (no cough, hemoptysis, SOB, MALDONADO, PND, wheezing) Cardiovascular: negative symptoms (No CP/Pressure/Tightness, palpitations, orthopnea, PND, SOB, MALDONADO, edema, SHOOK or vision change) Gastrointestinal: negative symptoms (no abdominal pain, anorexia, n/v, indigestion, constipation, or diarrhea) Genitourinary: no urinary symptoms Neurologic: negative symptoms (no syncope, seizures, weakness, gait problems, numbness, burning pain, tremors, or memory loss) negative (no arthritic pain, no joint swelling, no muscle weakness) Psychiatric: negative (no sleep disturbance, anxiety, memory loss, disorientation, inattention, feelings of depression) Hematologic/Lymphatic/Immunologic: negative (no anemia, bleeding, bruising) Endocrine: negative review of symptoms PHYSICAL EXAM: VITALS: Vitals: 06/10/24 1850 BP: Pulse: 101 Resp: 18 Temp: 99 F (37.2 C) SpO2: 97% Patient Vitals for the past 24 hrs: BP Temp Temp src Pulse Resp SpO2 O2 Device FiO2 (%) 06/10/24 1900 156/80 99.1 F (37.3 C) -- 97 17 98 % -- -- 06/10/24 1850 -- 99 F (37.2 C) -- 101 18 97 % -- -- 06/10/24 1840 -- 99 F (37.2 C) -- 95 18 97 % -- -- 06/10/24 1830 153/75 99.1 F (37.3 C) -- 96 20 96 % -- -- 06/10/24 1820 -- 98.8 F (37.1 C) Bladder 97 15 100 % -- -- 06/10/24 1812 -- -- -- -- -- 85 % Trach collar 70 06/10/24 1804 -- -- -- 101 18 98 % Trach collar 50 06/10/24 0647 159/82 97.9 F (36.6 C) Oral 59 16 94 % Room air -- Physical Exam Constitutional: General: He is not in acute distress. Appearance: Normal appearance. He is obese. He is not ill-appearing, toxic- appearing or diaphoretic. HENT: Head: Normocephalic and atraumatic. Mouth/Throat: Comments: Free flap with dopplerable signal. ROBERTH drains x 2 with serosang output, no evidence of active bleeding. Eyes: Extraocular Movements: Extraocular movements intact. Pupils: Pupils are equal, round, and reactive to light. Cardiovascular: Rate and Rhythm: Normal rate and regular rhythm. Pulses: Normal pulses. Pulmonary: Effort: Pulmonary effort is normal. No respiratory distress. Comments: Fresh tracheostomy #6 shiley cuffed, sutured, hemostatic Abdominal: General: Abdomen is flat. There is no distension. Palpations: Abdomen is soft. Tenderness: There is no abdominal tenderness. Musculoskeletal: General: Normal range of motion. Comments: L forearm in surgical dressing, ROBERTH with serosang output, no obvious bleeding Skin: General: Skin is warm and dry. Neurological: General: No focal deficit present. Mental Status: He is alert. Mental status is at baseline. LABS: CBC/PT/INR 06/10/2024 06/10/2024 1:48 PM 9:12 AM Hgb 12.7 14.1 Hct 39.0 43.2 Basic Metabolic Panel 06/10/2024 06/10/2024 1:48 PM 9:12 AM Na 141 142 K 3.9 4.0 Cl 110 107 Glu 143 142 Arterial Blood Gases T Site Mode LPM FIO2 pH pCO2 pO2 Sat Base Ex HCO3- A-a 06/10/24 1348 22 06/10/24 1348 7.407 35.9 115 98.2 -1.6 22 06/10/24 0912 24 06/10/24 0912 7.350 44.2 131 98.6 -1.4 24 IMAGING (personally reviewed by me): KUB 06/10 IMPRESSION: 1. Enteric tube projects over the mid stomach region. Consider advancement prior to being used for feeding. 2. Nonobstructive bowel gas pattern. ASSESSMENT: Quirino Cordero is a 74 year old male pmh HTN, HLD, now s/p tracheostomy, tongue resection, neck dissection, and radial forearm free flap reconstruction for tongue SCCa. Admitted to SICU for respiratory watch and free flap monitoring PLAN: Neuro: dPCA, tylenol, home buspar CV: home metop 25mg BID, ASA81, statin Pulm: trach collar, bacitracin to incisions; has #6 shiley cuffed trach GI: strict NPO, corpak in place for TF, senna, prn zofran, pepcid scheduled; nutrition consult Renal: MIVF until adequate PO, daily BMP, Mg, Phos; hold home ARB Heme: daily CBC, no indication for transfusion ID: hay-op unasyn per ENT Endo: no known hx, monitor on BMP MSK: PT/OT, progressive mobility Wounds: surgical incisions per ENt Lines: a-line, trach, PIV, cervantes, ROBERTH drains x 3 PPx: SQH in AM per ENT Code Status: Full Isolation: [place] / Additional: No Dispo: SICU Pt seen, discussed with Dr. Pavon, staff surgeon Ronald Thayer MD General Surgery PGY-3 ACS Consult: [phone] ACS Floor: [phone] TICU/SICU/BICU Nightfloat Associated attestation - Cory Pavon MD - 06/11/2024 3:55 AM EDT Teaching Physician Note: I reviewed the resident's documentation and discussed the patient with the resident. I agree with the resident's medical decision making as documented in the resident's note. Cory Pavon MD Division of Trauma, Critical Care, [place], and Emergency General Surgery Department of Surgery [facility] Work Phone: [phone] 327-673608-29-2024 History and physical note* Ronald Thayer MD - 06/10/2024 6:30 PM EDT Images from the original note were not included. [facility] DIVISION OF ACUTE CARE SURGERY SURGICAL CRITICAL CARE HISTORY & PHYSICAL Reason for consultation: post-op respiratory monitoring Referring physician: HPI: 74 M pmh HLD, HTN, tongue SCCA now s/p trach, resection of tongue SCCa, neck dissection with radialforearm free flap reconstruction. Admitted to ICU post op for airway monitoring and flap checks. EBL: 200cc Fluid replacement: 500cc albumin, 3.8L IVF UOP: 935cc PMH: No past medical history on file. PSH: No past surgical history on file. MEDS: Prior to Admission Medications Prescriptions Last Dose Informant Patient Reported? Taking? ALPRAZolam (XANAX) 0.5 MG tablet Yes No Sig: TAKE 1 TABLET BY MOUTH AT BEDTIME IF NEEDED TO SLEEP WHILE TAKING STEROID aspirin 81 MG tablet Yes No Sig: Take 81 mg by mouth. Patient not taking: Reported on 05/26/2024 atorvastatin (LIPITOR) 80 mg tablet 06/09/2024 Yes Yes Si mg every evening. busPIRone (BUSPAR) 10 MG tablet 06/10/2024 Yes Yes ibuprofen (MOTRIN) 800 MG tablet Yes No Sig: Take 800 mg by mouth every 8 hours. irbesartan (AVAPRO) 75 MG tablet 06/09/2024 Yes Yes Sig: every evening. latanoprost (XALATAN) 0.005 % ophthalmic solution Yes No Sig: INSTILL 1 DROP INTO EACH EYE AT BEDTIME metoprolol (LOPRESSOR) 25 MG tablet 06/10/2024 Yes Yes Sig: Take 25 mg by mouth 2 times a day. naloxone 4 mg/0.1 mL nasal liquid No No Sig: Use 1 Taylors in one nostril (alternate sides) as needed for Drug Overdose for up to 1 dose. Every 2-3 mins. until help arrives. predniSONE (DELTASONE) 10 MG tablet > Month Yes No Sig: TAKE 4 TABLETS BY MOUTH TODAY, THEN 2 TABS ONCE DAILY FOR 4 DAYS, THEN 1 TAB ONCE DAILY FOR 4 DAYS, THEN 1/2 (ONE-HALF) TAB ONCE DAILY FOR 2 DAYS sildenafil citrate (VIAGRA) 100 MG tablet Yes No tramadol (ULTRAM) 50 MG tablet Past Week Yes No Sig: TAKE 1 TO 2 TABLETS BY MOUTH EVERY 8 HOURS NEEDED FOR TONGUE PAIN. Facility-Administered Medications: None ALL: No Known Allergies FH: No family history on file. SH: Social History Socioeconomic History Marital status: Unknown Tobacco Use Smoking status: Former Current packs/day: 0.00 Types: Cigarettes Quit date: 1974 Years since quittin.6 Smokeless tobacco: Never Substance and Sexual Activity Alcohol use: Not Currently Drug use: Not Currently Review Of Systems: Skin: negative Eyes: negative review of symptoms Ears/Nose/Throat: negative Respiratory: negative symptoms (no cough, hemoptysis, SOB, MALDONADO, PND, wheezing) Cardiovascular: negative symptoms (No CP/Pressure/Tightness, palpitations, orthopnea, PND, SOB, MALDONADO, edema, SHOOK or vision change) Gastrointestinal: negative symptoms (no abdominal pain, anorexia, n/v, indigestion, constipation, or diarrhea) Genitourinary: no urinary symptoms Neurologic: negative symptoms (no syncope, seizures, weakness, gait problems, numbness, burning pain, tremors, or memory loss) negative (no arthritic pain, no joint swelling, no muscle weakness) Psychiatric: negative (no sleep disturbance, anxiety, memory loss, disorientation, inattention, feelings of depression) Hematologic/Lymphatic/Immunologic: negative (no anemia, bleeding, bruising) Endocrine: negative review of symptoms PHYSICAL EXAM: VITALS: Vitals: 06/10/24 1850 BP: Pulse: 101 Resp: 18 Temp: 99 F (37.2 C) SpO2: 97% Patient Vitals for the past 24 hrs: BP Temp Temp src Pulse Resp SpO2 O2 Device FiO2 (%) 06/10/24 1900 156/80 99.1 F (37.3 C) -- 97 17 98 % -- -- 06/10/24 1850 -- 99 F (37.2 C) -- 101 18 97 % -- -- 06/10/24 1840 -- 99 F (37.2 C) -- 95 18 97 % -- -- 06/10/24 1830 153/75 99.1 F (37.3 C) -- 96 20 96 % -- -- 06/10/24 1820 -- 98.8 F (37.1 C) Bladder 97 15 100 % -- -- 06/10/24 181 -- -- -- -- -- 85 % Trach collar 70 06/10/24 180 -- -- -- 101 18 98 % Trach collar 50 06/10/24 0647 159/82 97.9 F (36.6 C) Oral 59 16 94 % Room air -- Physical Exam Constitutional: General: He is not in acute distress. Appearance: Normal appearance. He is obese. He is not ill-appearing, toxic- appearing or diaphoretic. HENT: Head: Normocephalic and atraumatic. Mouth/Throat: Comments: Free flap with dopplerable signal. ROBERTH drains x 2 with serosang output, no evidence of active bleeding. Eyes: Extraocular Movements: Extraocular movements intact. Pupils: Pupils are equal, round, and reactive to light. Cardiovascular: Rate and Rhythm: Normal rate and regular rhythm. Pulses: Normal pulses. Pulmonary: Effort: Pulmonary effort is normal. No respiratory distress. Comments: Fresh tracheostomy #6 shiley cuffed, sutured, hemostatic Abdominal: General: Abdomen is flat. There is no distension. Palpations: Abdomen is soft. Tenderness: There is no abdominal tenderness. Musculoskeletal: General: Normal range of motion. Comments: L forearm in surgical dressing, ROBERTH with serosang output, no obvious bleeding Skin: General: Skin is warm and dry. Neurological: General: No focal deficit present. Mental Status: He is alert. Mental status is at baseline. LABS: CBC/PT/INR 06/10/2024 06/10/2024 1:48 PM 9:12 AM Hgb 12.7 14.1 Hct 39.0 43.2 Basic Metabolic Panel 06/10/2024 06/10/2024 1:48 PM 9:12 AM Na 141 142 K 3.9 4.0 Cl 110 107 Glu 143 142 Arterial Blood Gases T Site Mode LPM FIO2 pH pCO2 pO2 Sat Base Ex HCO3- A-a 06/10/24 1348 22 06/10/24 1348 7.407 35.9 115 98.2 -1.6 22 06/10/24 0912 24 06/10/24 0912 7.350 44.2 131 98.6 -1.4 24 IMAGING (personally reviewed by me): KUB 06/10 IMPRESSION: 1. Enteric tube projects over the mid stomach region. Consider advancement prior to being used for feeding. 2. Nonobstructive bowel gas pattern. ASSESSMENT: Quirino Cordero is a 74 year old male pmh HTN, HLD, now s/p tracheostomy, tongue resection, neck dissection, and radial forearm free flap reconstruction for tongue SCCa. Admitted to SICU for respiratory watch and free flap monitoring PLAN: Neuro: dPCA, tylenol, home buspar CV: home metop 25mg BID, ASA81, statin Pulm: trach collar, bacitracin to incisions; has #6 shiley cuffed trach GI: strict NPO, corpak in place for TF, senna, prn zofran, pepcid scheduled; nutrition consult Renal: MIVF until adequate PO, daily BMP, Mg, Phos; hold home ARB Heme: daily CBC, no indication for transfusion ID: hay-op unasyn per ENT Endo: no known hx, monitor on BMP MSK: PT/OT, progressive mobility Wounds: surgical incisions per ENt Lines: a-line, trach, PIV, cervantes, ROBERTH drains x 3 PPx: SQH in AM per ENT Code Status: Full Isolation: [place] / Additional: No Dispo: SICU Pt seen, discussed with Dr. Pavon, staff surgeon Ronald Thayer MD General Surgery PGY-3 ACS Consult: [phone] ACS Floor: [phone] TICU/SICU/BICU Nightfloat Associated attestation - Cory Pavon MD - 06/11/2024 3:55 AM EDT Teaching Physician Note: I reviewed the resident's documentation and discussed the patient with the resident. I agree with the resident's medical decision making as documented in the resident's note. Cory Pavon MD Division of Trauma, Critical Care, [place], and Emergency General Surgery Department of Surgery [facility] * Meena Munoz MD - 06/10/2024 6:51 AM EDT Images from the original note were not included. OTOLARYNGOLOGY HEAD AND NECK SURGICAL HISTORY AND PHYSICAL NOTE History of Present Illness 74 year old male here today for surgery. Patient reports no changes since last appointment on 05/11/24 Surgical Attestation: I have personally reviewed the patient's medical history and performed the physical examination below immediately before the procedure. Medications, allergies, and pertinent laboratory and diagnostictests were also reviewed at this time. Surgery is still indicated: yes Consent reviewed and signed by patient/legal guardian: yes Operative site verified and marked (if applicable): yes 10-point review of systems is otherwise negative. Past Medical History No past medical history on file. Past Surgical History There is no previous surgical history on file. Family History No family history on file. Social History Social History Tobacco Use Smoking status: Former Current packs/day: 0.00 Types: Cigarettes Quit date: 1974 Years since quittin.6 Smokeless tobacco: Never Substance Use Topics Alcohol use: Not Currently Medications ampicillin-sulbactam, 3,000 mg, Intravenous, One Time Dose heparin (porcine), 7,500 Units, Subcutaneous, One Time Dose Allergies No Known Allergies Physical Exam There were no vitals taken for this visit. General: Lying in bed NAD, conversant, A&Ox3 HEENT: Normocephalic and atraumatic without mass or lesion Respiratory: Equal inspiration and expiration without stridor Cardiovascular: Regular rate Oral Cavity: Mucous membranes moist Relevant Labs Basic Metabolic Panel No lab values to display. No intake or output data in the 24 hours ending 06/10/24 0618 CBC/PT/INR No lab values to display. Imaging: CT neck with contrast 05/19 Left oral tongue mass with metastatic adenopathy to left level III and level IV with suspecting extracapsular extension at level III. Assessment and Plan Mr. Cordero is a 74 year old male with SCCa of tongue - OR today for partial glossectomy, triple endoscopy, tracheostomy, free flap reconstruction Discussed with attending Giorgio Mi MD Hayley Baker, MD documented in this [id number] Nurse Surgical operation note * Tameka Velez RN - 06/10/2024 4:12 PM EDT Nursing report given to 5 Cliff Madden [id number] Nurse Note* Tameka Velez RN - 06/10/2024 4:12 PM EDT Nursing report given to 5 Cliff Madden documented in this [id number] Miscellaneous Notes* OP Note - Clayton Villarreal MD - 06/10/2024 8:20 AM EDT Operative Note MAIN OR 12 Quirino Cordero 74 year old male Surgical Contact Serial Number: [id number] Preoperative Diagnosis: Pre-op Diagnosis * 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] * Former smoker [Z87.891] Postoperative Diagnosis: * 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] * Former smoker [Z87.891] Procedures: Direct laryngoscopy Esophagoscopy Tracheostomy Hemiglossectomy, left Left selective neck dissection Surgeon(s): Surgeon(s): Giorgio Mi MD Ludlow, David H., MD Staff: Scrub: Mona Laws, RN; Justina Ford, STEEL WOOL MACHINE OPERATOR; Maulik Lau, STEEL WOOL MACHINE OPERATOR; Joanna Vogel, MARY BETH [employer] Director Nurse: Tameka Velez KAYLA; Maribeth Guardado, KAYLA; Cheng Sutherland, manager investmentApplication Developer Manager: Meena Munoz MD; Landon Pino MD; Lina Elizabeth MD Anesthesia: General Anesthesiologist: Arpita Crain MD; Yan Villegas MD CAA: Yifan Isaacs, CAA; Jessica Garcia [facility] DATE PULLER: Cristina Luis, STONEWORKING BELT SANDER-DATE PULLER; Roxy Morrison, STONEWORKING BELT SANDER-DATE PULLER; Brisa Long, STONEWORKING BELT SANDER-DATE PULLER Anesthesia Student: Marilyn Gibbons Specimen(s): ID Type Source Tests Collected by Time Destination 1 : Anterior inferior mucosal margin Tissue Mouth SPECIMEN FOR SURGICAL PATH Clayton Villarreal MD 06/10/2024 0941 2 : Partial glossectomy, single stitch hernández anterior, double stitch hernández dorsal Tissue Mouth SPECIMEN FOR SURGICAL PATH Clayton Villarreal MD 06/10/2024 0941 3 : level 1 A Tissue Lymph node SPECIMEN FOR SURGICAL Clayton Pollard MD 06/10/2024 1022 4 : LEFT LEVEL 1 B Tissue Lymph node SPECIMEN FOR SURGICAL Clayton Pollard MD 06/10/2024 1109 5 : LEFT LEVEL 2 Tissue Lymph node SPECIMEN FOR SURGICAL Clayton Pollard MD 06/10/2024 1114 6 : Floor of mouth, new margin, purple margin = true margin, stitch hernández anterior Tissue Mouth SPECIMEN FOR SURGICAL Clayton Pollard MD 06/10/2024 1146 7 : anterior floor mouth/tongue Tissue Mouth SPECIMEN FOR SURGICAL PATH Giorgio Mi MD 06/10/2024 1212 8 : posterior floor mouth/tongue Tissue Mouth SPECIMEN FOR SURGICAL Giorgio Bonds MD 06/10/2024 1212 9 : double stitch hernández level 2, single stitch hernández level 4 Tissue Lymph node SPECIMEN FOR Giorgio Cuadra MD 06/10/2024 1311 10 : level 4 Tissue Lymph node SPECIMEN FOR Giorgio Cuadra MD 06/10/2024 1321 11 : additional level 3 Tissue Lymph node SPECIMEN FOR Giorgio Cuadra MD 06/10/2024 1345 Estimated Blood Loss: 100mL Lines/Drains: Peripheral IV Access: 06/10/24 0749 20 gauge Anterior;Right Hand (Active) Site Assessment WNL;Dressing intact 06/10/24 180 Infusion Status Port #1 Capped;Patent;Positive blood return 06/10/24 180 Peripheral IV Access: 06/10/24 0756 18 gauge Right Foot (Active) Site Assessment WNL;Dressing intact 06/10/24 180 Infusion Status Port #1 Capped;Patent;Positive blood return 06/10/24 180 Surgical Drain Geo Aranda -- Flat # 1 10 fr Anterior;Left (Active) Site Assessment Edema 06/10/24 1810 Output Description Sanguineous 06/10/24 1810 Surgical Drain Geo Aranda -- Flat # 2 10 fr Anterior (Active) Site Assessment Edema 06/10/24 1810 Output Description Sanguineous 06/10/24 181 Surgical Drain Geo Aranda -- Round # 3 19 fr Left;Distal (Active) Site Assessment Edema 06/10/24 1810 Output Description Sanguineous 06/10/24 181 Temporarily Retained Foreign Object: Yes Location: Left neck Object: Surgical drain: 10 flat, 19 round Anticipated removal date: POD3-7 Findings: Left tongue lesion on lateral aspect of tongue with extension to FOM, posterior extension to glossotonsillar junction, depth of approximately 1-1.5cm Lesion excsion of 3cm x 8cm Left neck dissection, levels I-IV Left level 3 lymph node adherent to internal jugular vein, removed from vein with desmoplastic changes appreciated on surface of vein, no palpable invasion of vein Procedure in Detail: The patient was brought back to the operating room and a time out was performed by Dr. Mi. The patient was then induced under general anesthesia and was intubated using orotracheal tube. The planned trach and neck dissection incisions were injected with 1% lidocaine with 1:100,000 epinephrine. A final pre-incision pause was then performed to verify the correct procedure and patient prior to starting the planned procedure. First, direct laryngoscopy was performed using the Dedo laryngoscope. All sites of the upper aerodigestive tract were visualized including the uvula, soft palate, tonsils, vallecula, epiglottis, baseof tongue, arytenoids, false and true vocal cords, post-cricoid region and pyriform sinuses. There was noted to be a lesion of the left tongue as described in the findings. Next, rigid esophagoscopy was performed with the scope inserted to the level of the GE junction. On careful removal of the scope all sites of the esophageal mucosa were evaluated and there were not any concerning lesions noted. All instruments were then removed. A shoulder roll was placed. The patient was then prepped and draped in the standard fashion. .A #15 blade was used to incise the planned incision. The subcutaneous tissue was significant and an allis clamp and bovie were used to excise an approximate 2x2cm section to optimize exposure. Dissection then proeeded to the midline raphe which was divided. The strap muscles were retracted laterally on each side and a combination of blunt dissection and cautery were used to expose the anterior surface of the trachea. The thyroid isthmus was encountered and ~0.5cm was divided superiorly with bipolar and bovie cautery. A cric hook was placed as the trachea was deep to optimize exposure. The anterior tracheal fascia was bluntly dissected off the tracheal surface to allow visualization of the t kalpesh rings. Anesthesia then advanced their ET tube to prevent violation of the cuff and a #15 blade was used to make an incision just above the second tracheal ring. Curved burrell scissors were thenused to cut through the ring on each side. A 3-0 vicryl stitch was placed in a half-horizontal mattress fashion with an attempt at Rony flap, however the inferior aspect of the window was unstable and this a window was made and the stitch placed at it's inferior aspect and secured to the skin of the inferior aspect of the skin incision. The endotracheal tube was then carefully withdrawn under direct visualization and once superior to the window, the tracheostomy tube was easily placed. The vent ilator circuit was then hooked up and end-tidal CO2 was confirmed. The retractors and cric hook were then removed. All instrument counts were correct.The tracheostomy tube was then secured at 4 points with 2-0 silk suture. We then proceeded to resection of the tongue lesion. A blue lip retractor was placed. A 2-0 silk was placed in the tongue for retraction. The lesion was exposed and a 1 cm margin was outlined circumferentially around the lesion. Then using Bovie electrocautery, incision was made through the mucosa and submucosa circumferentially and into the substance of the tongue. The lesion was then excised using combination of Bovie electrocautery and harmonic ultrasonic scalpel while palpating the lesion to ensure adequate margins. The lesion was excised and was sent for frozen and permanent pathology. An additional margin along the anterior and inferior border was sent for frozen pathology. Positive margins were noted on the anterior and inferior borders of the resection and additional margins were taken. These were noted to be negative on frozen section. First we proceeded with the level 1A dissection and used bovie to identify the right anterior bellyof the digastric. We then dissected all fibrofatty tissue between the anterior belly of the digastric muscles down to the level of the hyoid and submitted this to permanent pathology. Next, the left submandibular gland was identified. We identified a facial nerve branch over the submandibular fascia that we traced and saved. We started our dissection posteriorly around the angle of the mandible, identified and clipped the facial vessels. Then we released all fibrofatty tissue associated with the submandibular gland extending from the body of the mandible and between the anterior and posteriorbelly of the digastric and up to the mylohyoid muscle. The submandibular duct was clipped and the ganglion divided but the lingual nerve preserved. We also identified and preserved the hypoglossal nerve deep to the posterior belly of digastric. This completed our level 1b dissection and was submitted to pathology. Then, we unrolled the fibrofatty tissue off the anterior border of the SCM. The omohyoid muscle was identified inferiorly. We identified cranial nerve 11 entering the SCM at the junction of the upper 1/3rd of the muscle. We identified the IJV lower in the neck and traced this superiorly. We skeletonized the 11th nerve and followed it and noted it was coursing posterior to the IJV.We performed blunt dissection between the 11th nerve and IJV to identify the floor of the neck superiorly at level 2. The fibrofatty tissue was incised along the IJV down to the floor and pulled inferiorly. Next we turned our attention more laterally and continued our dissection along the SCM to identify the cervical rootlets down to the level of the omohyoid which marked the floor of our dissection. We incised the fascia inferior to the area of the omohyoid to bring up the packet from level 4.This incision was carried up over the rootlets and continued our dissection anteriorly until the IJV was clearly visible. Of note the fibrofatty packet was noted to be scarred and adherent to the internal jugular vein. . We used the 15 blade to carefully dissect the fibrofatty tissue off the IJV. There were no reversible desmoplastic changes along the IJ however there were no palpable tumor extension into the internal jugular vein. Decision was made to maintain the internal jugular vein given the superficial involvement. Small vessels were cauterized with bipolar electrocautery. Dissection continued in this fashion until the common facial vein was identified. We used a combination of blunt dissection and bovie to separate the fibrofatty pack from the common facial vein, omohyoid muscle and strap muscles. The specimen was then removed and submitted for permanent pathology separately as levels 2A, 3, and 4. This completed our left neck dissection. The procedure was then turned over to Dr. Mi for pre reconstruction. (please see his operative note for full details) Complications: None Status at end of surgery: Stable Activity: Ad Yarely Surgical wound class: Yes, wound was clean contaminated. Patient Class: Inpatient. Is this a patient scheduled as an outpatient that needs to be admitted as an inpatient? No Dr. Villarreal was present in the OR for the critical portion of the procedure and procedure sign-out. Signed by Landon Pino MD 06/14/2024 4:25 PM Attending Physician Attestation: Teaching Physician Note: I was present for the entirety of the procedure and performed the fonseca portions of the case as defined by me. I agree with the resident's medical decision making as documented in the resident's note. Clayton Villarreal MD * OP Note - Giorgio Mi MD - 06/10/2024 8:20 AM EDT Operative Report DATE OF SERVICE: 06/10/24 PATIENT: Quirino Cordero PREOPERATIVE DIAGNOSIS: 1. Left lateral tongue squamous cell carcinoma POSTOPERATIVE DIAGNOSIS: Same PROCEDURE: Direct laryngoscopy with biopsy, CPT 87396 Rigid esophagoscopy, CPT 56533 3. Left radial forearm free tissue transfer with microvascular anastomosis, CPT 23471. 4. Complex vestibuloplasty, CPT 98042. 5. Split thickness skin graft from the left thigh 4 x 6 cm to left forearm defect, CPT 97611. 6. Application of short-arm splint to left forearm donor site, CPT 12390. SURGEON: Giorgio Mi MD CO-SURGEON (s): Clayton Villarreal MD AIRPLANE CLEANER: Landon Pino MD; Meena Munoz MD ANESTHESIA: General ESTIMATED BLOOD LOSS: 50 mLs COMPLICATIONS: None SPECIMENS: None INTRAOPERATIVE FINDINGS: 1. Cutaneous paddle size: 4 x 6 cm 2. Microvascular Anastomoses: Radial artery to left facial artery, venae comitantes not anastomosed, cephalic vein to facial vein. 3. Auxiliary Power Equipment Operator Size(s): 3.5mm jailkeeper for cephalic vein 4. Ischemia Time: 89 minutes INDICATIONS AND CONSENT: This is a 74 year old year old patient who has been diagnosed with left lateral tongue squamous cell carcinoma and is scheduled to undergo partial glossectomy and neck dissection resection. I have been asked to assist with the reconstruction which will be in the form of left radial forearm free flap. The risks/benefits/alternatives of free flap reconstruction were discussed with the patient including but not limited to flap failure, need for additional procedures, bleeding, and infection. DESCRIPTION OF PROCEDURE: On 06/10/24, the patient was identified in the preoperative area, consent confirmed, and transported to the OR. They were transferred to the OR table in a supine position. After induction of general anesthesia, a surgeon initiated time out was performed. The patient was then draped appropriately. The oral cavity was first examined and palpated. The laryngoscope was then atraumatically inserted into the oral cavity and examination of the oral cavity, oropharynx, hypopharynx and larynx was performed in a sequential manner at that time. Examination of these areas revealed a granular, exophytic and friable left lateral tongue tumor extending towards the midline and floor of mouth (approx 4 x 3 cm) with at least 1 cm depth of invasionon palpation.. We then proceeded with rigid esophagoscopy. The esophagoscope was atraumatically inserted to examine the entire length of the cervical esophagus. Examination revealed no evidence of masses, lesions, tears, injury or perforation. Radial forearm free flap harvest My portion of the surgery started concurrently with the resection being done, we harvested a fasciocutaneous radial forearm free flap from the left forearm. Prior to surgery I performed an Niko's test, this showed that the radial artery could be sacrificed without causing ischemia in the hand (Niko's performed in the conventional manner as well as with pulse oximetry). The skin paddle was templated from the ablative defect. A ovoid skin flap was designed measuring 4 x 6 cm and centered over the cephalic vein and radial artery. A curvilinear proximal linear incision was designed from the proximal portion of the skin incision up to the antecubital fossa. The skin flap was incised circumferentially and proximal skin flaps were raised, revealing the cephalic vein. The cephalic vein was circumferentially freed up from the distal flap to the antecubital fossa, ligating all branches that were not contributing to our flap as well as the distal cephalic vein. Of note, the contributing branches of the cephalic vein to flap were small and not very robust. Next, the fascia was raised up off flexor carpi radialis, preserving the overlying peritenon. The ulnar vessels were not exposed and protected during our dissection. The lateral flap dissection was then done, deepening through the fat and then through the investing fascia overlying the brachioradialis muscle. The investing fascia was raised in a medial to lateral direction up off the underlying muscle and tendon. The peritenon and the brachioradialis tendon was preserved. Here we identified the superficial branches of the radial nerve, originating from in between the two muscular heads of the brachioradialis muscle. Meticulous care was taken to protect these branches and deliver the fascia of the flap off of them. All major branches of this nerve were preserved. We then identified the distal radial artery and vein at the distal end of flap and performed an intraoperative Niko's test by occluding the radial artery. This demonstrated continued perfusion and capillary refill in the thumb, and thus the remnant hand perfusion was deemed adequate and the distal pedicle was ligated with 2-0 Silk. The flap with attached radial pedicle was then dissected up outof the intermuscular septum the brachioradialis from flexor carpi radialis. Perforating b ranches of the radial system to the underlying muscles were controlled using the bipolar cautery and clips. The flap was dissected all the way up to the antecubital fossa where the radial recurrent artery was identified and preserved. The venae comitantes and cephalic vein were traced proximally but were not found to ultimately join into one vein. . Microvascular anastomosis At the completion of the cancer resection, and confirmation of negative margins, the wound was analyzed. The patient had undergone resection of the lateral tongue and floor of mouth. The flap was harvested by suture ligating and dividing the vascular pedicle. We then created a tunnel medial to the mandible in the floor of mouth region and deep to the mylohyoid muscle which was partially divided while ensuring to protect the lingual nerve and and hypoglossal nerve that were previously identifiedduring the neck dissection overlying the hyoglossus fascia. The pedicle was then carefully tunneledinto the neck ensuring to avoid twisting or kinking of the pedicle. We then turned our attention to the microvascular anastomoses. The sterile draped microscope was brought into the operating field. Micro instruments were used to clean the adventitia off of the donorand recipient vessels. The free flap vessels were from each other enough to optimize our geometry given our target vessels. Sharp scissors were used to freshen the vessel edges and vessel dilators were used to gently dilate the vessels to optimize the size match. The donor artery was bledand had excellent flow. The flap artery was intubated and irrigated with heparinized saline, and demonstrated easy flow through the flap vein. This was done until clear saline was seem exiting the vei n. The artery was sewn first using a 3V double approximator clamp. Using microvascular instruments,an end-to-end anastomosis of the left facial artery artery to the radial artery was performed usinga 9-0 Nylon stitch in interrupted fashion. The cephalic vein was coupled to the facial vein with a 3.5 mm jailkeeper. All vascular clamps were then removed, marking an end of ischemia time for a total of 89 minutes. There was small leak noted initially but this quickly resolved with warm irrigation and weck-lorrie .Copious amounts of warm saline were irrigated over the vascular pedicle and soft tissuesof the flap. 2% lidocaine was irrigated over the arterial pedicle. The soft tissues of the flap appeared well-perfused with bright red blood at the skin edges and palpable pulse in the pedicle. The head was turned in both directions to assess the impact of mobility on the pedicle geometry. Warm gelfoam was placed around the pedicle to optimize the geometry and prevent kinking. An implantable cookdoppler was placed and secured with gem clips along the recipient flap artery and an appropriate Dop pler signal was maintained throughout the case. Flap inset The skin paddle was trimmed to an appropriate size and shape, and then inset to close the defect, the insetting was done circumferentially using horizontal mattress 3-0 vicryl sutures to create a water-tight seal. Complex vestibuloplasty A complex oral vestibuloplasty was done to restore the lingual vestibule. This was done by passing a series of deep horizontal mattress sutures from the free flap into the floor of mouth and near thethe lingual cortex of the mandible. The mylohyoid floor of mouth support mechanism was restored using a fascial component of the free flap. Split thickness skin graft The resulting open wound of the forearm was repaired with a 4 x 6 cm split split thickness skin graft harvested from the left thigh. A dermatome was used set at 0.2mm thickness. The graft was then set into the forearm defect with the epidermal layer facing up and secured using a running 4-0 Monocryl around the periphery of the defect. The graft was further secured with a bolster fashioned from xeroform and cotton. The proximal curvilinear forearm incision was closed primarily using inverted 3-0vicryls for the deep closure, and 5-0 fast for the skin closure. An ulnar splint was then placed onthe forearm using 4-inch plaster, Webril, in order to help maintain slight wrist extension to minimize the chance of wrist drop and facilitate take of the graft. Closure Multiple valsalva's were performed and any bleeders were controlled with bipolar cautery. ROBERTH drainswere placed in the neck and secured with 2-0 silk sutures. 3- 0 vicryls were used to secure the drains away from the vascular pedicle when necessary. A doppler probe was then used to identify the signal of the main pedicle on the external skin paddle of the flap and marked with a prolene stitch. Theskin was then closed with 3-0 vicryl sutures for the plastysma layer, 4-0 vicryl for deep dermal tissues, and 5-0 fast for the skin edges. A dobhoff feeding tube was placed and secured to the nasal septum with a 2-0 silk. The previously placed ETT was removed and a 6.0 cuffed Shiley tracheostomy tube was placed and secured with 2-0 silksutures. The patient was then awakened from anesthesia. There were no apparent complications and the patienttolerated the procedure well. * Blood Attestation - Jessica Garcia CAA - 06/10/2024 7:31 AM EDT Blood Attestation: ATTESTATION OF INFORMED CONSENT FOR BLOOD: The transfusion of blood and/or blood components were discussed with the patient and/or legal passenger service representative. The risks, benefits and alternatives were reviewed. Questions regarding blood transfusions were answered. The patient /or the patient s legal passenger service representative agree with the plan for transfusion of blood and/or blood components. 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] * Former smoker [Z87.891] Procedures: Direct laryngoscopy Esophagoscopy Tracheostomy Hemiglossectomy, left Left selective neck dissection Surgeon(s): Surgeon(s): Giorgio Mi MD Ludlow, David H., MD Staff: Scrub: Mona Laws, KAYLA; Justina Ford, MARY BETH; Maulik Lau, MARY BETH; Joanna Vogel, MARY BETH [employer] Director Nurse: Tameka Velez RN; Maribeth Guardado, RN; Cheng Sutherland, manager investmentApplication Developer Manager: Meena Munoz MD; Landon Pino MD; Lina Elizabeth MD Anesthesia: General Anesthesiologist: Arpita Crain MD; Yan Villegas MD CAA: Yifan Isaacs CAA; Jessica Garcia CAA DATE PULLER: Cristina Luis STONEWORKING BELT SANDER-DATE PULLER; Roxy Morrison STONEWORKING BELT SANDER-DATE PULLER; Brisa Long STONEWORKING BELT SANDER-DATE PULLER Anesthesia Student: Marilyn Gibbons Specimen(s): ID Type Source Tests Collected by Time Destination 1 : Anterior inferior mucosal margin Tissue Mouth SPECIMEN FOR SURGICAL PATH Clayton Villarreal MD 06/10/2024 0941 2 : Partial glossectomy, single stitch hernández anterior, double stitch hernández dorsal Tissue Mouth SPECIMEN FOR SURGICAL PATH Clayton Villarreal MD 06/10/2024 0941 3 : level 1 A Tissue Lymph node SPECIMEN FOR SURGICAL PATH Clayton Villarreal MD 06/10/2024 1022 4 : LEFT LEVEL 1 B Tissue Lymph node SPECIMEN FOR SURGICAL PATH Clayton Villarreal MD 06/10/2024 1109 5 : LEFT LEVEL 2 Tissue Lymph node SPECIMEN FOR SURGICAL PATH Clayton Villarreal MD 06/10/2024 1114 6 : Floor of mouth, new margin, purple margin = true margin, stitch hernández anterior Tissue Mouth SPECIMEN FOR SURGICAL PATH Clayton Villarreal MD 06/10/2024 1146 7 : anterior floor mouth/tongue Tissue Mouth SPECIMEN FOR SURGICAL PATH Giorgio Mi MD 06/10/2024 1212 8 : posterior floor mouth/tongue Tissue Mouth SPECIMEN FOR SURGICAL PATH Giorgio Mi MD 06/10/2024 1212 9 : double stitch hernández level 2, single stitch hernández level 4 Tissue Lymph node SPECIMEN FOR SURGICAL PATH Giorgio Mi MD 06/10/2024 1311 10 : level 4 Tissue Lymph node SPECIMEN FOR SURGICAL PATH Giorgio Mi MD 06/10/2024 1321 11 : additional level 3 Tissue Lymph node SPECIMEN FOR SURGICAL PATH Giorgio Mi MD 06/10/2024 1345 Estimated Blood Loss: 100mL Lines/Drains: Peripheral IV Access: 06/10/24 0749 20 gauge Anterior;Right Hand (Active) Site Assessment WNL;Dressing intact 06/10/24 1804 Infusion Status Port #1 Capped;Patent;Positive blood return 06/10/24 1804 Peripheral IV Access: 06/10/24 0756 18 gauge Right Foot (Active) Site Assessment WNL;Dressing intact 06/10/24 180 Infusion Status Port #1 Capped;Patent;Positive blood return 06/10/24 180 Surgical Drain Geo Aranda -- Flat # 1 10 fr Anterior;Left (Active) Site Assessment Edema 06/10/24 1810 Output Description Sanguineous 06/10/24 1810 Surgical Drain Geo Aranda -- Flat # 2 10 fr Anterior (Active) Site Assessment Edema 06/10/24 1810 Output Description Sanguineous 06/10/24 1810 Surgical Drain Geo Aranda -- Round # 3 19 fr Left;Distal (Active) Site Assessment Edema 06/10/24 1810 Output Description Sanguineous 06/10/24 1810 Temporarily Retained Foreign Object: Yes Location: Left neck Object: Surgical drain: 10 flat, 19 round Anticipated removal date: POD3-7 Findings: Left tongue lesion on lateral aspect of tongue with extension to FOM, posterior extension to glossotonsillar junction, depth of approximately 1-1.5cm Lesion excsion of 3cm x 8cm Left neck dissection, levels I-IV Left level 3 lymph node adherent to internal jugular vein, removed from vein with desmoplastic changes appreciated on surface of vein, no palpable invasion of vein Procedure in Detail: The patient was brought back to the operating room and a time out was performed by Dr. Mi. The patient was then induced under general anesthesia and was intubated using orotracheal tube. The planned trach and neck dissection incisions were injected with 1% lidocaine with 1:100,000 epinephrine. A final pre-incision pause was then performed to verify the correct procedure and patient prior to starting the planned procedure. First, direct laryngoscopy was performed using the Dedo laryngoscope. All sites of the upper aerodigestive tract were visualized including the uvula, soft palate, tonsils, vallecula, epiglottis, baseof tongue, arytenoids, false and true vocal cords, post-cricoid region and pyriform sinuses. There was noted to be a lesion of the left tongue as described in the findings. Next, rigid esophagoscopy was performed with the scope inserted to the level of the GE junction. On careful removal of the scope all sites of the esophageal mucosa were evaluated and there were not any concerning lesions noted. All instruments were then removed. A shoulder roll was placed. The patient was then prepped and draped in the standard fashion. .A #15 blade was used to incise the planned incision. The subcutaneous tissue was significant and an allis clamp and bovie were used to excise an approximate 2x2cm section to optimize exposure. Dissection then proeeded to the midline raphe which was divided. The strap muscles were retracted laterally on each side and a combination of blunt dissection and cautery were used to expose the anterior surface of the trachea. The thyroid isthmus was encountered and ~0.5cm was divided superiorly with bipolar and bovie cautery. A cric hook was placed as the trachea was deep to optimize exposure. The anterior tracheal fascia was bluntly dissected off the tracheal surface to allow visualization of the t kalpesh rings. Anesthesia then advanced their ET tube to prevent violation of the cuff and a #15 blade was used to make an incision just above the second tracheal ring. Curved burrell scissors were thenused to cut through the ring on each side. A 3-0 vicryl stitch was placed in a half-horizontal mattress fashion with an attempt at Rony flap, however the inferior aspect of the window was unstable and this a window was made and the stitch placed at it's inferior aspect and secured to the skin of the inferior aspect of the skin incision. The endotracheal tube was then carefully withdrawn under direct visualization and once superior to the window, the tracheostomy tube was easily placed. The vent ilator circuit was then hooked up and end-tidal CO2 was confirmed. The retractors and cric hook were then removed. All instrument counts were correct.The tracheostomy tube was then secured at 4 points with 2-0 silk suture. We then proceeded to resection of the tongue lesion. A blue lip retractor was placed. A 2-0 silk was placed in the tongue for retraction. The lesion was exposed and a 1 cm margin was outlined circumferentially around the lesion. Then using Bovie electrocautery, incision was made through the mucosa and submucosa circumferentially and into the substance of the tongue. The lesion was then excised using combination of Bovie electrocautery and harmonic ultrasonic scalpel while palpating the lesion to ensure adequate margins. The lesion was excised and was sent for frozen and permanent pathology. An additional margin along the anterior and inferior border was sent for frozen pathology. Positive margins were noted on the anterior and inferior borders of the resection and additional margins were taken. These were noted to be negative on frozen section. First we proceeded with the level 1A dissection and used bovie to identify the right anterior bellyof the digastric. We then dissected all fibrofatty tissue between the anterior belly of the digastric muscles down to the level of the hyoid and submitted this to permanent pathology. Next, the left submandibular gland was identified. We identified a facial nerve branch over the submandibular fascia that we traced and saved. We started our dissection posteriorly around the angle of the mandible, identified and clipped the facial vessels. Then we released all fibrofatty tissue associated with the submandibular gland extending from the body of the mandible and between the anterior and posteriorbelly of the digastric and up to the mylohyoid muscle. The submandibular duct was clipped and the ganglion divided but the lingual nerve preserved. We also identified and preserved the hypoglossal nerve deep to the posterior belly of digastric. This completed our level 1b dissection and was submitted to pathology. Then, we unrolled the fibrofatty tissue off the anterior border of the SCM. The omohyoid muscle was identified inferiorly. We identified cranial nerve 11 entering the SCM at the junction of the upper 1/3rd of the muscle. We identified the IJV lower in the neck and traced this superiorly. We skeletonized the 11th nerve and followed it and noted it was coursing posterior to the IJV.We performed blunt dissection between the 11th nerve and IJV to identify the floor of the neck superiorly at level 2. The fibrofatty tissue was incised along the IJV down to the floor and pulled inferiorly. Next we turned our attention more laterally and continued our dissection along the SCM to identify the cervical rootlets down to the level of the omohyoid which marked the floor of our dissection. We incised the fascia inferior to the area of the omohyoid to bring up the packet from level 4.This incision was carried up over the rootlets and continued our dissection anteriorly until the IJV was clearly visible. Of note the fibrofatty packet was noted to be scarred and adherent to the internal jugular vein. . We used the 15 blade to carefully dissect the fibrofatty tissue off the IJV. There were no reversible desmoplastic changes along the IJ however there were no palpable tumor extension into the internal jugular vein. Decision was made to maintain the internal jugular vein given the superficial involvement. Small vessels were cauterized with bipolar electrocautery. Dissection continued in this fashion until the common facial vein was identified. We used a combination of blunt dissection and bovie to separate the fibrofatty pack from the common facial vein, omohyoid muscle and strap muscles. The specimen was then removed and submitted for permanent pathology separately as levels 2A, 3, and 4. This completed our left neck dissection. The procedure was then turned over to Dr. Mi for pre reconstruction. (please see his operative note for full details) Complications: None Status at end of surgery: Stable Activity: Ad Yarely Surgical wound class: Yes, wound was clean contaminated. Patient Class: Inpatient. Is this a patient scheduled as an outpatient that needs to be admitted as an inpatient? No Dr. Villarreal was present in the OR for the critical portion of the procedure and procedure sign-out. Signed by Landon Pino MD 06/14/2024 4:25 PM Attending Physician Attestation: Teaching Physician Note: I was present for the entirety of the procedure and performed the fonseca portions of the case as defined by me. I agree with the resident's medical decision making as documented in the resident's note. Clayton Villarreal MD [id number] Surgery Surgical operation note* OP Note - Giorgio Mi MD - 06/10/2024 8:20 AM EDT Operative Report DATE OF SERVICE: 06/10/24 PATIENT: Quirino Cordero PREOPERATIVE DIAGNOSIS: 1. Left lateral tongue squamous cell carcinoma POSTOPERATIVE DIAGNOSIS: Same PROCEDURE: Direct laryngoscopy with biopsy, CPT 29416 Rigid esophagoscopy, CPT 35810 3. Left radial forearm free tissue transfer with microvascular anastomosis, CPT 47865. 4. Complex vestibuloplasty, CPT 70664. 5. Split thickness skin graft from the left thigh 4 x 6 cm to left forearm defect, CPT 14536. 6. Application of short-arm splint to left forearm donor site, CPT 05132. SURGEON: Giorgio Mi MD CO-SURGEON (s): Clayton Villarreal MD AIRPLANE CLEANER: Landon Pino MD; Meena Munoz MD ANESTHESIA: General ESTIMATED BLOOD LOSS: 50 mLs COMPLICATIONS: None SPECIMENS: None INTRAOPERATIVE FINDINGS: 1. Cutaneous paddle size: 4 x 6 cm 2. Microvascular Anastomoses: Radial artery to left facial artery, venae comitantes not anastomosed, cephalic vein to facial vein. 3. Auxiliary Power Equipment Operator Size(s): 3.5mm jailkeeper for cephalic vein 4. Ischemia Time: 89 minutes INDICATIONS AND CONSENT: This is a 74 year old year old patient who has been diagnosed with left lateral tongue squamous cell carcinoma and is scheduled to undergo partial glossectomy and neck dissection resection. I have been asked to assist with the reconstruction which will be in the form of left radial forearm free flap. The risks/benefits/alternatives of free flap reconstruction were discussed with the patient including but not limited to flap failure, need for additional procedures, bleeding, and infection. DESCRIPTION OF PROCEDURE: On 06/10/24, the patient was identified in the preoperative area, consent confirmed, and transported to the OR. They were transferred to the OR table in a supine position. After induction of general anesthesia, a surgeon initiated time out was performed. The patient was then draped appropriately. The oral cavity was first examined and palpated. The laryngoscope was then atraumatically inserted into the oral cavity and examination of the oral cavity, oropharynx, hypopharynx and larynx was performed in a sequential manner at that time. Examination of these areas revealed a granular, exophytic and friable left lateral tongue tumor extending towards the midline and floor of mouth (approx 4 x 3 cm) with at least 1 cm depth of invasionon palpation.. We then proceeded with rigid esophagoscopy. The esophagoscope was atraumatically inserted to examine the entire length of the cervical esophagus. Examination revealed no evidence of masses, lesions, tears, injury or perforation. Radial forearm free flap harvest My portion of the surgery started concurrently with the resection being done, we harvested a fasciocutaneous radial forearm free flap from the left forearm. Prior to surgery I performed an Niko's test, this showed that the radial artery could be sacrificed without causing ischemia in the hand (Niko's performed in the conventional manner as well as with pulse oximetry). The skin paddle was templated from the ablative defect. A ovoid skin flap was designed measuring 4 x 6 cm and centered over the cephalic vein and radial artery. A curvilinear proximal linear incision was designed from the proximal portion of the skin incision up to the antecubital fossa. The skin flap was incised circumferentially and proximal skin flaps were raised, revealing the cephalic vein. The cephalic vein was circumferentially freed up from the distal flap to the antecubital fossa, ligating all branches that were not contributing to our flap as well as the distal cephalic vein. Of note, the contributing branches of the cephalic vein to flap were small and not very robust. Next, the fascia was raised up off flexor carpi radialis, preserving the overlying peritenon. The ulnar vessels were not exposed and protected during our dissection. The lateral flap dissection was then done, deepening through the fat and then through the investing fascia overlying the brachioradialis muscle. The investing fascia was raised in a medial to lateral direction up off the underlying muscle and tendon. The peritenon and the brachioradialis tendon was preserved. Here we identified the superficial branches of the radial nerve, originating from in between the two muscular heads of the brachioradialis muscle. Meticulous care was taken to protect these branches and deliver the fascia of the flap off of them. All major branches of this nerve were preserved. We then identified the distal radial artery and vein at the distal end of flap and performed an intraoperative Niko's test by occluding the radial artery. This demonstrated continued perfusion and capillary refill in the thumb, and thus the remnant hand perfusion was deemed adequate and the distal pedicle was ligated with 2-0 Silk. The flap with attached radial pedicle was then dissected up outof the intermuscular septum the brachioradialis from flexor carpi radialis. Perforating b ranches of the radial system to the underlying muscles were controlled using the bipolar cautery and clips. The flap was dissected all the way up to the antecubital fossa where the radial recurrent artery was identified and preserved. The venae comitantes and cephalic vein were traced proximally but were not found to ultimately join into one vein. . Microvascular anastomosis At the completion of the cancer resection, and confirmation of negative margins, the wound was analyzed. The patient had undergone resection of the lateral tongue and floor of mouth. The flap was harvested by suture ligating and dividing the vascular pedicle. We then created a tunnel medial to the mandible in the floor of mouth region and deep to the mylohyoid muscle which was partially divided while ensuring to protect the lingual nerve and and hypoglossal nerve that were previously identifiedduring the neck dissection overlying the hyoglossus fascia. The pedicle was then carefully tunneledinto the neck ensuring to avoid twisting or kinking of the pedicle. We then turned our attention to the microvascular anastomoses. The sterile draped microscope was brought into the operating field. Micro instruments were used to clean the adventitia off of the donorand recipient vessels. The free flap vessels were from each other enough to optimize our geometry given our target vessels. Sharp scissors were used to freshen the vessel edges and vessel dilators were used to gently dilate the vessels to optimize the size match. The donor artery was bledand had excellent flow. The flap artery was intubated and irrigated with heparinized saline, and demonstrated easy flow through the flap vein. This was done until clear saline was seem exiting the vei n. The artery was sewn first using a 3V double approximator clamp. Using microvascular instruments,an end-to-end anastomosis of the left facial artery artery to the radial artery was performed usinga 9-0 Nylon stitch in interrupted fashion. The cephalic vein was coupled to the facial vein with a 3.5 mm jailkeeper. All vascular clamps were then removed, marking an end of ischemia time for a total of 89 minutes. There was small leak noted initially but this quickly resolved with warm irrigation and weck-lorrie .Copious amounts of warm saline were irrigated over the vascular pedicle and soft tissuesof the flap. 2% lidocaine was irrigated over the arterial pedicle. The soft tissues of the flap appeared well-perfused with bright red blood at the skin edges and palpable pulse in the pedicle. The head was turned in both directions to assess the impact of mobility on the pedicle geometry. Warm gelfoam was placed around the pedicle to optimize the geometry and prevent kinking. An implantable cookdoppler was placed and secured with gem clips along the recipient flap artery and an appropriate Dop pler signal was maintained throughout the case. Flap inset The skin paddle was trimmed to an appropriate size and shape, and then inset to close the defect, the insetting was done circumferentially using horizontal mattress 3-0 vicryl sutures to create a water-tight seal. Complex vestibuloplasty A complex oral vestibuloplasty was done to restore the lingual vestibule. This was done by passing a series of deep horizontal mattress sutures from the free flap into the floor of mouth and near thethe lingual cortex of the mandible. The mylohyoid floor of mouth support mechanism was restored using a fascial component of the free flap. Split thickness skin graft The resulting open wound of the forearm was repaired with a 4 x 6 cm split split thickness skin graft harvested from the left thigh. A dermatome was used set at 0.2mm thickness. The graft was then set into the forearm defect with the epidermal layer facing up and secured using a running 4-0 Monocryl around the periphery of the defect. The graft was further secured with a bolster fashioned from xeroform and cotton. The proximal curvilinear forearm incision was closed primarily using inverted 3-0vicryls for the deep closure, and 5-0 fast for the skin closure. An ulnar splint was then placed onthe forearm using 4-inch plaster, Webril, in order to help maintain slight wrist extension to minimize the chance of wrist drop and facilitate take of the graft. Closure Multiple valsalva's were performed and any bleeders were controlled with bipolar cautery. ROBERTH drainswere placed in the neck and secured with 2-0 silk sutures. 3- 0 vicryls were used to secure the drains away from the vascular pedicle when necessary. A doppler probe was then used to identify the signal of the main pedicle on the external skin paddle of the flap and marked with a prolene stitch. Theskin was then closed with 3-0 vicryl sutures for the plastysma layer, 4-0 vicryl for deep dermal tissues, and 5-0 fast for the skin edges. A dobhoff feeding tube was placed and secured to the nasal septum with a 2-0 silk. The previously placed ETT was removed and a 6.0 cuffed Shiley tracheostomy tube was placed and secured with 2-0 silksutures. The patient was then awakened from anesthesia. There were no apparent complications and the patienttolerated the procedure well. [id number] Progress note* Blood Attestation - Jessica Garcia CAA - 06/10/2024 7:31 AM EDT Blood Attestation: ATTESTATION OF INFORMED CONSENT FOR BLOOD: The transfusion of blood and/or blood components were discussed with the patient and/or legal passenger service representative. The risks, benefits and alternatives were reviewed. Questions regarding blood transfusions were answered. The patient /or the patient s legal passenger service representative agree with the plan for transfusion of blood and/or blood components. [employer] Work Phone: [phone] History and physical note* Meena Munoz MD - 06/10/2024 6:51 AM EDT Images from the original note were not included. OTOLARYNGOLOGY HEAD AND NECK SURGICAL HISTORY AND PHYSICAL NOTE History of Present Illness 74 year old male here today for surgery. Patient reports no changes since last appointment on 05/11/24 Surgical Attestation: I have personally reviewed the patient's medical history and performed the physical examination below immediately before the procedure. Medications, allergies, and pertinent laboratory and diagnostictests were also reviewed at this time. Surgery is still indicated: yes Consent reviewed and signed by patient/legal guardian: yes Operative site verified and marked (if applicable): yes 10-point review of systems is otherwise negative. Past Medical History No past medical history on file. Past Surgical History There is no previous surgical history on file. Family History No family history on file. Social History Social History Tobacco Use Smoking status: Former Current packs/day: 0.00 Types: Cigarettes Quit date: 1974 Years since quittin.6 Smokeless tobacco: Never Substance Use Topics Alcohol use: Not Currently Medications ampicillin-sulbactam, 3,000 mg, Intravenous, One Time Dose heparin (porcine), 7,500 Units, Subcutaneous, One Time Dose Allergies No Known Allergies Physical Exam There were no vitals taken for this visit. General: Lying in bed NAD, conversant, A&Ox3 HEENT: Normocephalic and atraumatic without mass or lesion Respiratory: Equal inspiration and expiration without stridor Cardiovascular: Regular rate Oral Cavity: Mucous membranes moist Relevant Labs Basic Metabolic Panel No lab values to display. No intake or output data in the 24 hours ending 06/10/24 0618 CBC/PT/INR No lab values to display. Imaging: CT neck with contrast 05/19 Left oral tongue mass with metastatic adenopathy to left level III and level IV with suspecting extracapsular extension at level III. Assessment and Plan Mr. Cordero is a 74 year old male with SCCa of tongue - OR today for partial glossectomy, triple endoscopy, tracheostomy, free flap reconstruction Discussed with attending Giorgio Mi MD Hayley Baker, MD [id number] NoteOTOLARYNGOLOGY HEAD AND NECK SURGICAL HISTORY AND PHYSICAL NOTE History of Present Illness 74 year old male here today for surgery. Patient reports no changes since last appointment on 05/11/24 Surgical Attestation: I have personally reviewed the patient's medical history and performed the physical examination below immediately before the procedure. Medications, allergies, and pertinent laboratory and diagnostic tests were also reviewed at this time. Surgery is still indicated: yes Consent reviewed and signed by patient/legal guardian: yes Operative site verified and marked (if applicable): yes 10-point review of systems is otherwise negative. Past Medical History No past medical history on file. Past Surgical History There is no previous surgical history on file. Family History No family history on file. Social History Social History Tobacco Use Smoking status: Former Current packs/day: 0.00 Types: Cigarettes Quit date: 1974 Years since quittin.6 Smokeless tobacco: Never Substance Use Topics Alcohol use: Not Currently Medications ampicillin-sulbactam, 3,000 mg, Intravenous, One Time Dose heparin (porcine), 7,500 Units, Subcutaneous, One Time Dose Allergies No Known Allergies Physical Exam There were no vitals taken for this visit. General: Lying in bed NAD, conversant, A AND Ox3 HEENT: Normocephalic and atraumatic without mass or lesion Respiratory: Equal inspiration and expiration without stridor Cardiovascular: Regular rate Oral Cavity: Mucous membranes moist Relevant Labs Basic Metabolic Panel No lab values to display. No intake or output data in the 24 hours ending 06/10/24 0618 CBC/PT/INR No lab values to display. Imaging: CT neck with contrast 05/19 Left oral tongue mass with metastatic adenopathy to left level III and level IV with suspecting extracapsular extension at level III. Assessment and Plan Mr. Cordero is a 74 year old male with SCCa of tongue - OR today for partial glossectomy, triple endoscopy, tracheostomy, free flap reconstruction Discussed with attending Giorgio Mi MD Hayley Baker, MDThe [facility] [id number] Telephone encounter Note* Telephone Encounter - Lili Christianson - 05/27/2024 9:18 AM EDT Pedro Villarreal pt dejuan called in stating pt ear still hurts and she informed me that on yesterdays appt. with you pt was told if medications do not work and pt still has ear pain you will prescribe something stronger. If prescribed please send you [facility] [id number], [place] [address] Thank you [id number] Miscellaneous Notes* Telephone Encounter - Lili Christianson - 05/27/2024 9:18 AM EDT Pedro Villarreal pt dejuan called in stating pt ear still hurts and she informed me that on yesterdays appt. with you pt was told if medications do not work and pt still has ear pain you will prescribe something stronger. If prescribed please send you [facility] [id number], [place] [address] Thank you documented in this [id number] History of Present illness Narrative* Mei Simental, KAYLA - 05/26/2024 10:15 AM EDT PRE-OP AND POST-OP HOMEGOING INSTRUCTIONS FOR SURGERY Patient instructed on Pre-Surgical Testing date 05/26/2024. Patient instructed on OR date TBD. 1. You must bring a responsible adult with you who is willing to stay in the waiting room while youare having surgery and who will take you home. 2. Your escort must drive you to and from the hospital. DO NOT ride the bus. No cab vouchers will be given. 3. If you are under 18 years of age, a parent or legal guardian must come with you. 4. DO NOT WEAR: Fingernail Palestinian Lipstick Heavy makeup Contact lenses Jewelry Wigs Dress comfortably. EXAMPLE: sweat pants, T-shirt, tennis shoes 5. Leave valuables /money at home. 6. If blood work, xrays or tests were ordered by the doctor, they MUST be done before your surgery. 7. If you are unable to keep your appointment for any reason, please notify your doctor. 8. You will be called the afternoon before your Surgery to tell you when to come to the Hospital. If you are not called, please call this number [phone] between 1 and 3 PM. AFTER SURGERY: 1. DO NOT drive a car, go back to work or school for 24hours. 2. DO NOT operate machinery or do coordinated activities for 24 hrs. 3. DO NOT drink alcoholic beverages for 24 hrs. 4. DO NOT be alarmed if you feel dizzy, tired or nauseated during the first 24 hrs. 5. A responsible adult should be with you for 24 hours after surgery. Surgical Procedure: Neck Dissection and Free Flap Patient verbalizes understanding of pre-op and post-op care and surgical procedure: Yes PRE-OPERATIVE INSTRUCTIONS Adult Patients: Adult patients may have plain water (no additives) up to 2 hours prior to surgery arrival time. Otherwise, no food or any other type of liquids for at least 8 hours prior to surgery arrival time. A small sip of water with approved morning medications on the day of surgery is acceptable. Special considerations: If a patient with diabetes is concerned about low blood sugar while being NPO, they may: Have a small sip of clear juice (ie. Apple juice or Gatorade) no later than 2 hours prior to arrival time. Alert your anesthesiologist if this occurs on the day of surgery. * Wyatt Taylor MTA - 05/26/2024 9:19 AM EDT Patient identfied by name and date of Pharmacy updated Vital signs taken Patent in exam room ready for MD * Clayton Villarreal MD - 05/26/2024 9:14 AM EDT CC: Chief Complaint Patient presents with sore on tongue HPI: Quirino Cordero is a 74 year old male previously seen by Dr. Mi for a cancerous tongue lesion that's been present for several months. He's here today for pre-op regarding tongue cancer, currently scheduled for surgery on the . I hadn't had a chance to meet him, so we're establish care and discussing the procedure one more time. He has tongue pain radiating to his ear, but aside from that, no significant changes since his visit with Dr. Mi. Allergies Patient has no known allergies. Medications Current Outpatient Medications Medication Sig Dispense Refill ALPRAZolam (XANAX) 0.5 MG tablet TAKE 1 TABLET BY MOUTH AT BEDTIME IF NEEDED TO SLEEP WHILE TAKING STEROID ibuprofen (MOTRIN) 800 MG tablet Take 800 mg by mouth every 8 hours. predniSONE (DELTASONE) 10 MG tablet TAKE 4 TABLETS BY MOUTH TODAY, THEN 2 TABS ONCE DAILY FOR 4 DAYS, THEN 1 TAB ONCE DAILY FOR 4 DAYS, THEN 1/2 (ONE-HALF) TAB ONCE DAILY FOR 2 DAYS sildenafil citrate (VIAGRA) 100 MG tablet tramadol (ULTRAM) 50 MG tablet TAKE 1 TO 2 TABLETS BY MOUTH EVERY 8 HOURS NEEDED FOR TONGUE PAIN. metoprolol (LOPRESSOR) 25 MG tablet Take 25 mg by mouth 2 times a day. aspirin 81 MG tablet Take 81 mg by mouth. (Patient not taking: Reported on 05/26/2024) atorvastatin (LIPITOR) 80 mg tablet 80 mg every evening. busPIRone (BUSPAR) 10 MG tablet irbesartan (AVAPRO) 75 MG tablet every evening. latanoprost (XALATAN) 0.005 % ophthalmic solution INSTILL 1 DROP INTO EACH EYE AT BEDTIME No current facility-administered medications for this visit. Family History The patient's family history is not on file.. Social History: Social History Socioeconomic History Marital status: Unknown Tobacco Use Smoking status: Former Current packs/day: 0.00 Types: Cigarettes Quit date: 1975 Years since quittin.6 Smokeless tobacco: Never Substance and Sexual Activity Alcohol use: Not Currently Drug use: Not Currently Review of Systems - as per HPI, otherwise the balance of 10 systems is negative Physical Exam Vitals: 05/26/24 0917 Pulse: 48 Temp: 97.6 F (36.4 C) SpO2: 99% General apperance: WN/WD adult in no apparent distress, sitting in a chair Ability to communicate: normal voice without hoarseness Head and Face: Atraumatic, normocephalic; skin with no masses or lesions; sinuses nontender to palpation, face symmetric with normal movement Salivary Glands: No enlargement or tenderness of parotid or submandibular glands Ears:External ears are intact without any lesions or masses. Eyes: EOM Intact, sclera anicteric, no conjunctival injection. Nose: External nose midline Oral Cavity: Lips, gums, gingiva are normal. Tongue protrusion is midline and non-tethered. 4cm lesion of the left lateral tongue. Along the ventral aspect of the tongue as it meets the FOM, it feelslike it goes deeper, at least 1cm. Good tongue mobility otherwise. The lesion has a small ulceration and is not friable. Oropharynx: the soft palate, tonsils, and lateral pharyngeal kohler are without lesions or masses; BOT is soft to palpation Larynx: poor visualization secondary to strong gag reflex Neck: soft, no LAD, thyroid gland non-enlarged CV: No clubbing/cyanosis/edema in hands Respiration: Breathing comfortably, no stridor or stertor Neuro: A&Ox3, Cranial nerves 2-12 intact and symmetric. Normal affect. CT Neck w/ Contrast 05/19/2024 IMPRESSION: Left oral tongue mass with metastatic adenopathy to left level III and level IV with suspecting extracapsular extension at level III. Assessment/Recommendations: Quirino Cordero is a 74 year old male who presents today for: 1. 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 - The plan is for partial glossectomy with reconstruction free flap, likely left forearm flap. - His Niko's test today was good, so we can do a radial form flap. - Discussed risks and benefits of surgery. Patient wants to proceed. Electronically signed by Osmany Salcido scribing for and in the presence of Dr. Clayton Villarreal on 05/26/2024 at 9:43 AM All medical record entries made by the scribe were at my direction and personally dictated by me. Connor reviewed and edited the record and confirm that the note above accurately reflects all work, treatment, procedures, and medical decision making performed by me. Clayton Villarreal MD documented in this [id number] History of Present illness Narrative* Arlette Fuentes, STONEWORKING BELT SANDER-ELECTRODE TURNER AND FINISHER - 05/26/2024 8:45 AM EDT Images from the original note were not included. Pre-Admission Testing Consultation Quirino Cordero, [id number] 74 year old Male 05/27/2024 Consult placed to PAT by Dr. Mi due to significant PMH of HTN PAT Triage Risk Score Total Score: 5 3 The case is high risk; it is over 4 hours long or is a hysterectomy, joint replacement, colon, spine, or neuro procedure. 2 Patient is on more than 2 antihypertension medications. Quirino Cordero is scheduled for LARYNGOSCOPY, DIRECT, ESOPHAGOSCOPY RIGID, Trach, partial glossectomy, left neck dissection on 06/10/2024. 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 Treatments have not been effective ,no longer effective ,no alternate treatment options available.Surgical intervention warranted . Patient is here for pre-admission optimization and education prior to surgery. RECENT ILLNESS: Serious illness or hospitalization within the last six months. No STOP BANG: STOP-BANG Row Name 05/26/24 0836 History of sleep apnea? No Snoring Yes Tired/Fatigued No Observed Apnea Yes Pressure: Hypertension Yes BMI greater than 35 1 Age greater than 50 1 Neck circ greater than 40cm (15.75) No Gender male? 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 Social History Tobacco Use Smoking status: Former Current packs/day: 0.00 Types: Cigarettes Quit date: 1974 Years since quittin.6 Smokeless tobacco: Never Substance Use Topics Alcohol use: Not Currently Drug use: Not Currently MEDICAL HISTORY: No past medical history on file. SURGICAL HISTORY: No past surgical history on file. Past Medical History and Review of Systems Pulmonary - negative ROS Dental ROS (+) upper and lower dentures Endo - negative ROS Neuro/Psych (+) depression, anxiety/panic attacks Cardiovascular (+) hypertension Comment: denies CP, SOB, MALDONADO, syncope or palpitations GI/Hepatic/Renal - negative ROS Heme/Other - negative ROS Other ROS: Squamous cell carcinoma of oral cavity Oral phase dysphagia PREVIOUS ANESTHETIC COMPLICATIONS: no history of difficult intubation , adverse effects of anesthetic agents, or family history of anesthesia-related problems, nor malignant hyperthermia and hx of previous anesthesia First time getting general anesthesia CURRENT MEDICATION LIST: Current Outpatient Medications Medication Sig Dispense Refill ALPRAZolam (XANAX) 0.5 MG tablet TAKE 1 TABLET BY MOUTH AT BEDTIME IF NEEDED TO SLEEP WHILE TAKING STEROID ibuprofen (MOTRIN) 800 MG tablet Take 800 mg by mouth every 8 hours. predniSONE (DELTASONE) 10 MG tablet TAKE 4 TABLETS BY MOUTH TODAY, THEN 2 TABS ONCE DAILY FOR 4 DAYS, THEN 1 TAB ONCE DAILY FOR 4 DAYS, THEN 1/2 (ONE-HALF) TAB ONCE DAILY FOR 2 DAYS sildenafil citrate (VIAGRA) 100 MG tablet tramadol (ULTRAM) 50 MG tablet TAKE 1 TO 2 TABLETS BY MOUTH EVERY 8 HOURS NEEDED FOR TONGUE PAIN. metoprolol (LOPRESSOR) 25 MG tablet Take 25 mg by mouth 2 times a day. aspirin 81 MG tablet Take 81 mg by mouth. (Patient not taking: Reported on 05/26/2024) atorvastatin (LIPITOR) 80 mg tablet 80 mg every evening. busPIRone (BUSPAR) 10 MG tablet irbesartan (AVAPRO) 75 MG tablet every evening. latanoprost (XALATAN) 0.005 % ophthalmic solution INSTILL 1 DROP INTO EACH EYE AT BEDTIME No current facility-administered medications for this visit. HEIGHT: 5' 7 WEIGHT: Weight was 105.3 kg on 05/26/2024 BMI: 36.34 VITAL SIGNS: BP 144/82 Pulse 60 Temp 97.2 F (36.2 C) (Temporal) Resp 12 Ht 1.702 m (5' 7) Wt 105.2 kg (232 lb) SpO2 99% BMI 36.34 kg/m BP at home 130s/80s PAIN ASSESSMENT: Severity: 0 Location: N/A AIRWAY EXAM: Mallampati score: 3 TMD: Adequate Neck Extension/ Flexion: Adequate Mouth Opening: Adequate Dentition: Upper dentures and Lower dentures Micrognathia/Overbite: No FUNCTIONAL CAPACITY: 4-10 mets , Patient able to walk 1-2 blocks PHYSICAL EXAM: Eyes: Deferred ENT: Carotids normal pulse without bruits Pulmonary: Chest clear to auscultation bilaterally Cardiovascular: RRR with S1S2 and No murmurs, gallops, or rubs Abdomen: Deferred Extremities: No gross or obvious abnormalities Neurologic: Awake, alert, oriented Psychiatric: alert and oriented to person, place and time Skin: No gross or obvious abnormalities on visible skin Assessment and Plan: 1) Pre-Admission Evaluation 2) Pre-Op Diagnosis Codes: * 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 LABS, TESTS, CONSULTS ORDERED: Orders & Meds Signed During This Encounter Type And Screen Complete Blood Count Basic Metabolic Panel Abo Rh Type metoprolol (LOPRESSOR) 25 MG tablet EKG 12 LEAD - PERFORM LABORATORY DATA: CBC (last 3 years, up to 8 values) 05/26/2024 8:16 AM WBC 8.5 RBC 5.30 Hgb 16.4 Hct 49.8 MCV 94 RDW 15.1 Plt 148 BMP (last 3 years, up to 8 values) 05/26/2024 8:16 AM Na 140 K 5.4 Cl 105 CO2 25 Gap 15 Glu 84 BUN 29 Cr 1.26 Ca 9.9 eGFR 59 TESTS REVIEWED: I personally reviewed and interpreting and findings were: CXRay: No Chest x-ray found EK05/26/2024 SB with SA RBBB Inferior infarct, age undetermined ECHO: Echocardiogram date: Not Found Stress test date: Last StressTest: none found going back to 05/06/2024 Patient is medically optimized for surgery. This note will be forwarded to the referring provider. Patient should follow up with referring provider. Patient has been directed to discuss specific recovery questions with his/her surgeon/proceduralist. Visit activities: - preparing to see the patient (e.g., review of tests) - obtaining and/or reviewing separately obtained history - performing a medically appropriate examination and/or evaluation - counseling and educating the patiecounseling and educating the patient/family/caregivernt/family/caregiver - counseling and educating the patient/family/caregiver - ordering medications, tests, or procedures - documenting clinical information in the electronic or other health record Interviewer signature: CHLOÉ Raman 7:49 AM 05/27/2024 documented in this [id number] NotePre-Admission Testing Consultation Quirino Cordero, [id number] 74 year old Male 05/27/2024 Consult placed to PAT by Dr. Mi due to significant PMH of HTN [facility] Triage Risk Score Total Score: 5 3 The case is high risk; it is over 4 hours long or is a hysterectomy, joint replacement, colon, spine, or neuro procedure. 2 Patient is on more than 2 antihypertension medications. Quirino Cordero is scheduled for LARYNGOSCOPY, DIRECT, ESOPHAGOSCOPY RIGID, Trach, partial glossectomy, left neck dissection on 06/10/2024. 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 Treatments have not been effective ,no longer effective ,no alternate treatment options available.Surgical intervention warranted . Patient is here for pre-admission optimization and education prior to surgery. RECENT ILLNESS: Serious illness or hospitalization within the last six months. No STOP BANG: STOP-BANG Row Name 05/26/24 0836 History of sleep apnea? No Snoring Yes Tired/Fatigued No Observed Apnea Yes Pressure: Hypertension Yes BMI greater than 35 1 Age greater than 50 1 Neck circ greater than 40cm (15.75) No Gender male? 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 Social History Tobacco Use Smoking status: Former Current packs/day: 0.00 Types: Cigarettes Quit date: 1974 Years since quittin.6 Smokeless tobacco: Never Substance Use Topics Alcohol use: Not Currently Drug use: Not Currently MEDICAL HISTORY: No past medical history on file. SURGICAL HISTORY: No past surgical history on file. Past Medical History and Review of Systems Pulmonary - negative ROS Dental ROS (+) upper and lower dentures Endo - negative ROS Neuro/Psych (+) depression, anxiety/panic attacks Cardiovascular (+) hypertension Comment: denies CP, SOB, MALDONADO, syncope or palpitations GI/Hepatic/Renal - negative ROS Heme/Other - negative ROS Other ROS: Squamous cell carcinoma of oral cavity Oral phase dysphagia PREVIOUS ANESTHETIC COMPLICATIONS: no history of difficult intubation , adverse effects of anesthetic agents, or family history of anesthesia-related problems, nor malignant hyperthermia and hx of previous anesthesia First time getting general anesthesia CURRENT MEDICATION LIST: Current Outpatient Medications Medication Sig Dispense Refill ALPRAZolam (XANAX) 0.5 MG tablet TAKE 1 TABLET BY MOUTH AT BEDTIME IF NEEDED TO SLEEP WHILE TAKING STEROID ibuprofen (MOTRIN) 800 MG tablet Take 800 mg by mouth every 8 hours. predniSONE (DELTASONE) 10 MG tablet TAKE 4 TABLETS BY MOUTH TODAY, THEN 2 TABS ONCE DAILY FOR 4 DAYS, THEN 1 TAB ONCE DAILY FOR 4 DAYS, THEN 1/2 (ONE-HALF) TAB ONCE DAILY FOR 2 DAYS sildenafil citrate (VIAGRA) 100 MG tablet tramadol (ULTRAM) 50 MG tablet TAKE 1 TO 2 TABLETS BY MOUTH EVERY 8 HOURS NEEDED FOR TONGUE PAIN. metoprolol (LOPRESSOR) 25 MG tablet Take 25 mg by mouth 2 times a day. aspirin 81 MG tablet Take 81 mg by mouth. (Patient not taking: Reported on 05/26/2024) atorvastatin (LIPITOR) 80 mg tablet 80 mg every evening. busPIRone (BUSPAR) 10 MG tablet irbesartan (AVAPRO) 75 MG tablet every evening. latanoprost (XALATAN) 0.005 % ophthalmic solution INSTILL 1 DROP INTO EACH EYE AT BEDTIME No current facility-administered medications for this visit. HEIGHT: 5' 7 WEIGHT: Weight was 105.3 kg on 05/26/2024 BMI: 36.34 VITAL SIGNS: BP 144/82 Pulse 60 Temp 97.2 ???F (36.2 ???C) (Temporal) Resp 12 Ht 1.702 m (5' 7) Wt 105.2 kg (232 lb) SpO2 99% BMI 36.34 kg/m??? BP at home 130s/80s PAIN ASSESSMENT: Severity: 0 Location: N/A AIRWAY EXAM: Mallampati score: 3 TMD: Adequate Neck Extension/ Flexion: Adequate Mouth Opening: Adequate Dentition: Upper dentures and Lower dentures Micrognathia/Overbite: No FUNCTIONAL CAPACITY: 4-10 mets , Patient able to walk 1-2 blocks PHYSICAL EXAM: Eyes: Deferred ENT: Carotids normal pulse without bruits Pulmonary: Chest clear to auscultation bilaterally Cardiovascular: RRR with S1S2 and No murmurs, gallops, or rubs Abdomen: Deferred Extremities: No gross or obvious abnormalities Neurologic: Awake, alert, oriented Psychiatric: alert and oriented to person, place and time Skin: No gross or obvious abnormalities on visible skin Assessment and Plan: 1) Pre-Admission Evaluation 2) Pre-Op Diagnosis Codes: * 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 LABS, TESTS, CONSULTS ORDERED: Orders AND Meds Tamiko (more content not included)...[facility] 05-26-2024 Instructions* Patient Instructions* Arlette Fuentes APRN-ELECTRODE TURNER AND FINISHER - 05/26/2024 8:17 AM EDT On the morning of your surgery, please take only the following medications, with a small sip of water: metoprolol (LOPRESSOR) 25 MG tablet busPIRone (BUSPAR) 10 MG tablet Do not take any Aspirin products 7 days before surgery. Do not take Ibuprofen, Aleve, Advil, Motrin or any other NSAIDS (celebrex, meloxicam, naproxen, diclofenac) 3 days before surgery. May take over the counter Acetaminophen (Tylenol) as needed for pain. Please hold all Vitamin E, [place] 3, fish oil and herbal supplements for 1 week prior to surgery. You will receive a call the day before surgery between 10 am and 3 pm notifying you what time to arrive for surgery. Please use this LIST to prepare for your surgery/procedure: ? Assume that any lab or testing done during your Pre-admission testing appointment is within normal limits unless otherwise contacted. ? Expect a call from [facility] one business day prior to surgery for surgery arrival time and location. ? Please plan to restart your medications the day after surgery unless otherwise explicitly instructed. ? Please contact your surgeon s/proceduralist s office for any surgical or recovery types of questions. ? CANCELLING YOUR SURGERY/PROCEDURE: If you get a cold, are not feeling well, or become , please call your surgeon s office as soon as possible. ? Refer to your Preparing for Your Surgery/Procedure booklet or [email or web address] if you have questions. Contact the Pre-Admission Testing department at [phone] or your surgeon's office with any questions that are not answered. ? Eating and drinking before surgery: Adult Patients: No solid food after midnight night before surgery ( at least 8 hours prior surgery) May have clear liquids up to 2 hours before surgery check in time ( water ) Enhanced Recovery After Surgery (ERAS), bariatric, and endoscopy/colonoscopy patients should follow their surgeon s/proceduralist s instructions for clear fluids prior to surgery. ON THE DAY OF SURGERY: ? DO bring your ID, insurance card, medication list, and a small amount of woodall for filling prescriptions and any medical co-pays. ? DO bring glasses if you wear contacts and other assistance items such as oxygen, inhaler, cane, walker, etc. ? Do NOT bring valuables, credit cards, or large amounts of woodall. ? Do NOT wear lotion or strong-smelling fragrance (perfume, cologne, cream or lotion). ? Do NOT wear any jewelry, (including rings, earrings, or mouth, tongue, or body piercings). Metal jewelry could cause constriction, amputation, or carpio. Loose or bulky things in your mouth can be unsafe and result in breathing problems. ? ARRANGE FOR A RIDE: If you are scheduled to go home the same day of surgery, a responsible adult MUST drive or accompany you home in a car, cab, shared ride service, or [employer]. You will not be allowed to drive yourself home or travel home alone. Your surgery may be cancelled if you do not have a ride. A responsible adult must stay with you after surgery. Please call [email or web address] if you need transportation assistance or have concerns about going home [phone]. ? SLEEP APNEA PATIENTS: Bring your sleep apnea machine and mask. ? PLEASE BE ON TIME. A late arrival may result in the cancellation/ delay of your surgery. Thank you for choosing [facility]; it is our pleasure to care for you documented in this [id number] Telephone encounter Note* Telephone Encounter - Giorgio Mi MD - 05/21/2024 12:59 PM EDT Brief ENT Telephone Note Called patient to discuss recent CT Neck on 05/19/24, which showed Left oral tongue mass with metastatic adenopathy to left level III and level IV with suspecting extracapsular extension at level III. We discussed the results in detail. Plan for surgery as previously planned for 06/10/24. Scheduled to see Dr. Villarreal and PSE 05/26/24. All questions answered and pt verbalized understanding of the plan. Giorgio Mi MD Otolaryngology - Head and Neck Surgery [facility] Pager: [phone] [id number] Miscellaneous Notes* Telephone Encounter - Giorgio Mi MD - 05/21/2024 12:59 PM EDT Brief ENT Telephone Note Called patient to discuss recent CT Neck on 05/19/24, which showed Left oral tongue mass with metastatic adenopathy to left level III and level IV with suspecting extracapsular extension at level III. We discussed the results in detail. Plan for surgery as previously planned for 06/10/24. Scheduled to see Dr. Villarreal and PSE 05/26/24. All questions answered and pt verbalized understanding of the plan. Giorgio Mi MD Otolaryngology - Head and Neck Surgery [facility] Pager: [phone] documented in this [id number] NoteSPEECH LANGUAGE PATHOLOGY OUTPATIENT SWALLOW EVALUATION Location: ENT Clinic Patient identified by patient stating name and date of . Time In: 10:00am Time Out: 10:55pm Duration: 55 mins Session #: 10/22 Payor: MEDICARE / Plan: MEDICARE PART A AND B / Product Type: Medicare Referring Provider: Giorgio Mi MD/ENT Date of Onset: referred 05/11/2024 Speech Medical History: Patient referred for speech therapy evaluation given newly diagnosed head and neck cancer. Referred by Bartolo Child MD ([place]) for T2N0Mx SCCa of the left tongue, 3 cm x 2 cm left lateral tongue Treatment plan: surgery on 06/10/2024, partial glossectomy with forearm free flap, possible adjuvant chemoradiation Prior Level of Functioning: Patient lives with his . Patient is not currently working. 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 Patient's hearing, vision, and ambulation are unaided. Pt reports hearing concerns, but does not wish to have them addressed at this time. SUBJECTIVE: Patient subjective/goals: Pt arrives on time with and daughter, who remain throughout. Pain: yes, left tongue radiating into left ear. Addressed by nursing today. OBJECTIVE: SWALLOWING PATIENT REPORT Pt reports difficulty with harder solids, and needing to chew only on his left side. He reports pain with chewing, but no difficulties with swallowing. General Daily Intake Current Diet: Patient consuming self restricted diet of softer solids and thin liquids. Supplemental nutrition: none Weight: stable EAT - 10 To what extent are the following scenarios problematic for you? 0 = never 1 = almost never 2 = sometimes 3 = almost always 4 = always 1. My swallowing problem has caused me to lose weight. 0 2. My swallowing problems interferes with my ability to go out for meals. 0 3. Swallowing liquids takes extra effort. 0 4. Swallowing solids takes extra effort. 2 5. Swallowing pills takes extra effort. 0 6. Swallowing is painful. 0 7. The pleasure of eating is affected by my swallowing. 0 8. When I swallow food sticks in my throat. 2 9. I cough when I eat. 0 10. Swallowing is stressful. 0 TOTAL 4 Total >11 indicates functional daily impact. Cranial Nerve Quick Assessment: CN V - Trigeminal; Motor: WNL (open/close mouth; open against resisted hand; move jaw side to side) CN V - Trigeminal; Sensory: WNL (Facial sensation: close your eyes and tell me where I am touching you: forehead, cheek, jaw) CN VII - Facial; Motor:WNL (forehead wrinkling, smile) CN VII - Facial; Sensory: WNL (2/3 front of tongue taste- sweet, sour, salty) CN IX - Glossopharyngeal; Sensory: WNL (1/3 back of tongue taste- sweet, sour, salty) CN IX - Glossopharyngeal AND CN X - Vagus; Motor: WNL (palate elevation with ahh) CN XI - Spinal Accessory; Motor: WNL (shoulder shrug) CN XII - Hypoglossal; Motor: hooks to pt's left (tongue ROM) [place] Swallow Protocol: State: Awake, alert, participatory Brief Cognitive Screen: What is your Name?: + Where are you right now?: + What year is it?: + Oral Mechanism Assessment: Tongue ROM: Airway Heights to left Facial Symmetry: Intact Smile: Intact Pucker: Intact Lip Closure (cheek puff and hold): Intact Dentition: has dentures, fit on top, but not on bottom 3-ounce water swallow challenge: Positioning: Upright Mode of administration: Cup Consecutive drinking of 3oz Thin water: Achieved, uninterrupted Cough/Throat Clear: None X PASS: Complete and uninterrupted drinking of all 3 ounces (90cc) of water without overt signs of aspiration (I.e. coughing or choking, either during or immediate after completion) *The [place] Swallow Protocol (YSP) is a standardized measure with high sensitivity(96.5%) and negative prediction value (97.9%). Other Consistencies Presented: Thin Liquids: water Pureed Solids: applesauce Regular Solids: keisha cracker Oral Phase: Adequate bilabial seal w/out anterior spillage Mastication appears slightly labored, but adequate Mild oral residuals Pharyngeal Phase: No overt signs and symptoms of airway invasion with oral intake in any of trials. Diet Recommendation: Dental Dental Mechanical Soft Strategies: Chew on right side only for comfort Risk assessment regarding aspiration related pulmonary complications: Given relatively preserved pulmonary clearance, and bacteriological contents, but diminished immune response patient risk for aspiration related pulmonary complication currently appears low. Positive Impact Negative impact Pulmonary Clearance Medical Conditions (COPD, CHF, asthma) x Reduced function (reduced mobility/increased dependence for care) x Pulmonary health (h/o smoking, need for supplemental O2, need for inhaled medications) x Immune Response Nutritional Status x Medical co-morbidities x Presence of current infectious process x Bacteriological Contents Dependencies for oral care x Dental care/rep (more content not included)...[facility] [employer] [id number] History of Present illness Narrative* Bossman Jeronimo, [facility]-OFFICE SYSTEM ANALYST - 05/19/2024 9:56 AM EDT SPEECH LANGUAGE PATHOLOGY OUTPATIENT SWALLOW EVALUATION Location: ENT Clinic Patient identified by patient stating name and date of . Time In: 10:00am Time Out: 10:55pm Duration: 55 mins Session #: 10/22 Payor: MEDICARE / Plan: MEDICARE PART A & B / Product Type: Medicare Referring Provider: Giorgio Mi MD/ENT Date of Onset: referred 05/11/2024 Speech Medical History: Patient referred for speech therapy evaluation given newly diagnosed head and neck cancer. Referred by Bartolo Child MD ([place]) for T2N0Mx SCCa of the left tongue, 3 cm x 2 cm left lateraltongue Treatment plan: surgery on 06/10/2024, partial glossectomy with forearm free flap, possible adjuvantchemoradiation Prior Level of Functioning: Patient lives with his . Patient is not currently working. 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 Patient's hearing, vision, and ambulation are unaided. Pt reports hearing concerns, but does not wish to have them addressed at this time. SUBJECTIVE: Patient subjective/goals: Pt arrives on time with and daughter, who remain throughout. Pain: yes, left tongue radiating into left ear. Addressed by nursing today. OBJECTIVE: SWALLOWING PATIENT REPORT Pt reports difficulty with harder solids, and needing to chew only on his left side. He reports pain with chewing, but no difficulties with swallowing. General Daily Intake Current Diet: Patient consuming self restricted diet of softer solids and thin liquids. Supplemental nutrition: none Weight: stable EAT - 10 To what extent are the following scenarios problematic for you? 0 = never 1 = almost never 2 = sometimes 3 = almost always 4 = always 1. My swallowing problem has caused me to lose weight. 0 2. My swallowing problems interferes with my ability to go out for meals. 0 3. Swallowing liquids takes extra effort. 0 4. Swallowing solids takes extra effort. 2 5. Swallowing pills takes extra effort. 0 6. Swallowing is painful. 0 7. The pleasure of eating is affected by my swallowing. 0 8. When I swallow food sticks in my throat. 2 9. I cough when I eat. 0 10. Swallowing is stressful. 0 TOTAL 4 Total >11 indicates functional daily impact. Cranial Nerve Quick Assessment: CN V - Trigeminal; Motor: WNL (open/close mouth; open against resisted hand; move jaw side to side) CN V - Trigeminal; Sensory: WNL (Facial sensation: close your eyes and tell me where I am touching you: forehead, cheek, jaw) CN VII - Facial; Motor:WNL (forehead wrinkling, smile) CN VII - Facial; Sensory: WNL (2/3 front of tongue taste- sweet, sour, salty) CN IX - Glossopharyngeal; Sensory: WNL (1/3 back of tongue taste- sweet, sour, salty) CN IX - Glossopharyngeal & CN X - Vagus; Motor: WNL (palate elevation with ahh) CN XI - Spinal Accessory; Motor: WNL (shoulder shrug) CN XII - Hypoglossal; Motor: hooks to pt's left (tongue ROM) [place] Swallow Protocol: State: Awake, alert, participatory Brief Cognitive Screen: What is your Name?: + Where are you right now?: + What year is it?: + Oral Mechanism Assessment: Tongue ROM: Airway Heights to left Facial Symmetry: Intact Smile: Intact Pucker: Intact Lip Closure (cheek puff and hold): Intact Dentition: has dentures, fit on top, but not on bottom 3-ounce water swallow challenge: Positioning: Upright Mode of administration: Cup Consecutive drinking of 3oz Thin water: Achieved, uninterrupted Cough/Throat Clear: None X PASS: Complete and uninterrupted drinking of all 3 ounces (90cc) of water without overt signs of aspiration (I.e. coughing or choking, either during or immediate after completion) *The [place] Swallow Protocol (YSP) is a standardized measure with high sensitivity(96.5%) and negative prediction value (97.9%). Other Consistencies Presented: Thin Liquids: water Pureed Solids: applesauce Regular Solids: keisha cracker Oral Phase: Adequate bilabial seal w/out anterior spillage Mastication appears slightly labored, but adequate Mild oral residuals Pharyngeal Phase: No overt signs and symptoms of airway invasion with oral intake in any of trials. Diet Recommendation: Dental Dental Mechanical Soft Strategies: Chew on right side only for comfort Risk assessment regarding aspiration related pulmonary complications: Given relatively preserved pulmonary clearance, and bacteriological contents, but diminished immuneresponse patient risk for aspiration related pulmonary complication currently appears low. Positive Impact Negative impact Pulmonary Clearance Medical Conditions (COPD, CHF, asthma) x Reduced function (reduced mobility/increased dependence for care) x Pulmonary health (h/o smoking, need for supplemental O2, need for inhaled medications) x Immune Response Nutritional Status x Medical co-morbidities x Presence of current infectious process x Bacteriological Contents Dependencies for oral care x Dental care/repair x Oral hygiene x Xerostomia x Diabetes x Acid Suppression therapy (PPI, H2 Blockers) x Total Dysphagia Risk Score (TDRS) T Classification Neck Irradiation Baseline Weight Loss Primary Tumor Site Treatment Modality Risk Points Risk Points Risk Points Risk Points Risk Points T1 0 Primary +/- ipsilateral neck 0 No WL 0 Larynx 0 Conventional RT 0 T2 0 Primary + bilateral neck 9 1-5% WL 5 Oropharynx 7 Accelerated RT 6 T3 4 6-10% WL 5 Nasopharynx 9 Concomitant ASSIGNER 5 T4 4 >10% WL 7 TDRS Risk of Swallowing Dysfunction: unknown at this time, given pending imaging and appointments with oncology Low Risk: <10 points Intermediate Risk: 10-18 points High Risk: >18 points PERCEPTUAL OBSERVATIONS (CAPE-V, Consensus Auditory-Perceptual Evaluation of Voice) Rated by clinician following sustained /ah/ and /ee/, reading of short sentences, and conversation. Aspect of voice WNL; mild, mod, severe deviance Consistent/Inconsistent Comments Overall severity WNL consistent Roughness WNL consistent Breathiness WNL consistent Strain WNL consistent Pitch WNL consistent Loudness WNL consistent Nasality WNL consistent Additional features (diplophonia, gauthier, falsetto, asthenia, pitch instability, tremor, wet/gurgly, prosody, other) Speech Respiration: WNL Phonation: WNL Articulation: WNL, pt indicates mild discomfort Resonance: WNL Intelligibility: 100% ASSESSMENT: Diagnosis: mild oral phase dysphagia, anticipated oropharyngeal dysphagia and dysarthria Impression: Quirino Rodríguez is a 74 year old adult who presents for a initial speech therapy evaluation today with emphasis on dysphagia. Patient has a recent diagnosis of tongue cancer and is expected to undergo partial glossectomy with free flap reconstruction, and unknown plan for adjuvant treatment. At this time, patient presents characteristics of mild oral phase dysphagia. Dysphagia is characterized by discomfort on the left side. Instrumental evaluation of swallowing is not warranted at this time given otherwise normal swallow skills. Recommend diet of dental mechanical soft, given thatpt is not using lower dentures at this time. Speech skills are WNL at this time. Educated patient on diet recommendation, swallow strategies, anticipated decline in dysphagia, and prophylactic swallow exercises. The patient appears to be a good candidate for swallow prehabilitation at this time; anticipate rehabilitation needs at a later date. Patient and clinician in agreementwith plan. Written HEP provided. Pt lives in [place] and would like to see an OFFICE SYSTEM ANALYST closer to home following surgery. He agrees to return for post-op appointment, and then we will look for an OFFICE SYSTEM ANALYST more convenient to hime. Spent 15 minutes on patient education and teaching home program below. Pt completed 5 reps of each exercises. PLAN: Treatment Modalities: swallowing, speech/dysarthria Frequency of Visits: 2x/month Duration: 3-6 months, may transfer to OFFICE SYSTEM ANALYST closer to home Senior Care Goals: 1. Patient will tolerate a PO diet without pulmonary compromise. Short Term Goals: Patient will complete [id number] of effortful swallows to optimize oropharyngeal pressure in anticipation of dysphagia. Patient will complete lingual press for 10 seconds [id number] to optimize tongue and palate seal in anticipation of dysphagia. Patient will complete pharyngocise exercises (falsetto, tongue press, effortful swallow, jaw opening against resistance) to proactively manage anticipated radiation associated dysphagia 10x each, 4x/day. Patient will complete jaw opening against resistance for 30 seconds 10x to optimize mandibular opening in anticipation of trismus. Patient will implement compensatory strategies given written and verbal education to manage radiation associated dysphagia (odynophagia, xerostomia, dysgeusia, fatigue, aspiration risk) in order to tolerate PO intake without >2 week NPO status and optimize long-term swallow function. Patient will participate in further voice, trismus, and/or lymphedema evaluation as deemed clinically appropriate by the treating clinician. Prognosis: Good given + support, + skilled intervention, + medical history HOME PROGRAM/EDUCATION: Diet Recommendation: Dental Dental Mechanical Soft and Thin Liquids, anticipated NGT post-op Exercises: Pharyngocise: Do the exercises indicated with checkmarks below 10 times each, 4 times daily. ?Falsetto: [place] up in pitch to reach a high, squeaky voice, then hold it for several seconds with effort. ?Tongue press: Push your tongue against the roof of your mouth as hard as you can for 5 seconds. ?Effortful hard swallow: Pretend you have a golf ball stuck in your throat. Swallow as hard as you can by squeezing your tongue and throat as you swallow. ?Jaw resistance and strengthening with jaw mobility device (TheraBite or OraStretch) or manually: 1.) Push down on your chin with the middle part between your index finger and thumb and use your jaw strength to close your jaw against the resistance of your hand. 2.) Using the palm of your hand, push upward on your chin and use your jaw strength to open your mouth against the resistance of your hand. Bossman Jeronimo CCC-OFFICE SYSTEM ANALYST Speech Language Pathologist documented in this [id number] NoteSW received an order for outreach from Dr. Mi concerning adjustment to illness. SW placed outreach call to Pt's , Dejuan, per Pt's request. SW was unable to reach Dejuan and left a message explaining reason for call and requested a return call. SW will remain available. Diann ROSALES, JANAK [id number] [facility] [id number] Telephone encounter Note* Telephone Encounter - Diann Bobo LSW - 05/13/2024 11:09 AM EDT SW received an order for outreach from Dr. Mi concerning adjustment to illness. BRANDIE placed outreach call to Pt's , Dejuan, per Pt's request. SW was unable to reach Dejuan and left a message explaining reason for call and requested a return call. SW will remain available. Diann ROSALES, AGILE PROJECT MANAGER [id number] [facility] Work Phone: [phone] Miscellaneous Notes* Telephone Encounter - Diann Bobo LSW - 05/13/2024 11:09 AM EDT BRANDIE received an order for outreach from Dr. Mi concerning adjustment to illness. SW placed outreach call to Pt's , Dejuan, per Pt's request. SW was unable to reach Dejuan and left a message explaining reason for call and requested a return call. SW will remain available. Diann Bobo KNOWLEDGE ARCHITECT, AGILE PROJECT MANAGER [id number] documented in this [id number] History of Present illness Narrative* Ting Naik RN - 05/11/2024 1:12 PM EDT Identification was verified by patient verbalizing his name and date of . * Giorgio Mi MD - 05/11/2024 1:00 PM EDT Images from the original note were not included. OTOLARYNGOLOGY - HEAD & NECK SURGERY CLINIC NOTE CHIEF COMPLAINT: Chief Complaint Patient presents with New patient, to establish relationship Tongue mass HPI: Quirino Cordero is a 74 year old male with PMH significant for HTN who presents today, 05/11[facility]2024, [facility] at the request of Referring Provider: Bartolo Child for my opinion and further evaluation of tongue mass. Recent biopsy + SCCa. Today, pt reports left sided tongue soreness that started in December. He was seen by PCP and ENT and there were not concerns for malignancy at that time. He continued to have persistent symptoms and then obtained recent biopsy but was unaware of biopsy results until visit today. He feels like it's relatively stable size. Associated with intermittent left aural pain. Reports pain with eating. Deniesfevers, chills, unintentionalweight loss, night sweats, otalgia, sore throat, oral bleeding, dysphagia, odynophagia, voice changes, shortness of breath, hemoptysis or new lesions/masses. Denies history of radiation or previous of head/neck surgery other than dental extractions. Denies history of cardiac or pulmonary issues. Able to walk/up downstairs without issues. Not currently on any anticoagulation or antiplatelet therapy. Former smoker (1/2 ppd x 10 yrs). Denies history of significant alcohol use. Now retired. ROS: Constitutional: Negative for fever, chills, and weight loss overweight gain. Skin: Negative for rash, itchiness, dryness HENT: Negative for ear pain, sore throat and hoarseness. Negative for difficulty swallowing. Cardiovascular: Negative for chest pain and dyspnea on exertion (Can climb up 2 floors). Respiratory: Negative for shortness of breath and increased work of breathing. Gastrointestinal: Negative for nausea and vomiting. Neurological: Negative for headaches. Lymph/Heme: Negative for lymphadenopathy or easy bruising Musculoskeletal: Negative for joint or muscle pain Psychiatric: The patient is not nervous/anxious. All other systems are negative except for that listed in the HPI. Past Medical/Surgical History: He has no past medical history on file. His has no past surgical history on file. Past Family/Social History: His family history is not on file. He reports that he quit smoking about 49 years ago. His smoking use included cigarettes. He has never used smokeless tobacco. Medications/Allergies/Immunizations: His current medication(s) include: @CMEDLISTP@ Allergies: Patient has no known allergies., Immunizations: Immunization History Administered Date(s) Administered Influenza, injectable, high-dose seasonal, quadrivalent, 0.7 mL, preservative free (YJN=685) 08/09/2022 Influenza, injectable, quadrivalent, preservative free (IIV4) (CEM=023) 08/04/2018, 08/04/2019 Influenza, injectable, trivalent (IIV3) (CSB=645) 07/30/2017 Influenza, seasonal vaccine, quadrivalent, adjuvanted, 0.5mL dose, preservative free (EPT=738) 07/13/2020, 08/13/2021 Moderna Bivalent (6m-5y dose 1 or 2, 25 mcg/0.25 mL; 6-11y any dose, 25 mcg/0.25 mL; 12+ yrs any dose, 50 mcg/0.5 mL) COVID-19, mRNA, (UBM=664) 10/14/2022 Moderna Monovalent (12+ yrs) COVID-19 vaccine, mRNA, spike protein, LNP, PF, 100 mcg/0.5 mL (JYT=317) 12/28/2020, 01/25/2021, 09/14/2021, 03/19/2022 Pneumococcal conjugate 13 valent (PCV13) (VYM=041) 04/13/2015, 08/04/2019 Pneumococcal conjugate 20 valent (PCV20), polysaccharide [id number] conjugate, adjuvant, PF (DKN=184) 07/22/2023 Pneumococcal polysaccharide 23 Valent (PPSV23) (CVX=33) 04/16/2016, 08/08/2020 Tdap (EKD=294) 04/13/2015 Zoster Recombinant (RZV,Shingles) (RHY=365) 08/04/2023, 10/20/2023 PHYSICAL EXAM: Vital Signs: BP 151/85 Pulse 66 Temp 97.3 F (36.3 C) (Temporal) Resp 20 Ht 5' 7 (1.702 m) Wt 236 lb 1.6 oz (107.1 kg) Comment: clothed SpO2 98% BMI 36.98 kg/m General: Well-developed, well-nourished. In no acute distress. Communication and Voice: Clear pitch and clarity Respiratory Respiratory effort: Equal inspiration and expiration without stridor Neuro: Appropriate mood and affect; Cranial nerves II-XII are intact Head and Face Inspection: Normocephalic and atraumatic without mass or lesion Palpation: Facial skeleton intact without bony stepoffs Facial Strength: Facial motility symmetric and full bilaterally Eyes: No nystagmus with normal extraocular motion bilaterally ENT External nose: No scar or anatomic deformity TMJ: No pain to palpation with full mobility Salivary Glands: No mass or tenderness Lips: No lesion. Oral cavity: Moist mucosa. Firm, relatively exophytic and granular left lateral tongue lesion (approx 3 x 2 cm) with no extension onto the mandible or into base of tongue. Oropharynx: No mass or lesion. Tonsillar fossa symmetric. Base of tongue soft without mass or induration on palpation Larynx: Unable to fully visualize larynx on indirect mirror laryngoscopy due to gag reflex Neck Trachea: Midline trachea. Thyroid: No mass or nodularity. Lymphatics: No palpable cervical lymphadenopathy. Donor Sites: Pt right handed. Normal Niko's test on left hand with appropriate perfusion with both ulnar and radial a. occluded Procedure: Procedure: Flexible fiberoptic nasopharyngolaryngoscopy Indications: Need for detailed exam, hyperactive gag reflex, inadequate mirror visualization Surgeon: Giorgio Mi MD was present for the entirety of the procedure Procedure: After informed discussion of the risks, benefits, and alternatives, fiberoptic nasopharyngolaryngsocopy was recommended for the above indications, and the patient consented without furtherquestions. Next, a flexible scope was easily advanced into the naris. Nasal cavities were unremarkable. Nasopharynx including Eustachian tubes & fossae of [place]muller was unremarkable. Oropharynx including base of tongue & vallecula was unremarkable. Hypopharynx & endolarynx including epiglottis & glottis were unremarkable. Airway was patent & vocal folds were mobile bilaterally. No lesions or masses appreciated. The scope was withdrawn atraumatically. The patient tolerated the procedure well without complications. 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 I reviewed with Mr. Cordero that recommended treatment for the majority oforal malignancies include a sequential approach involving surgery to address the primary tumor and neck region. Surgery, if elected, would involve triple endoscopy, partial glossectomy, left neck dissection and given the nature of the anticipated defect, likely free flap reconstruction such as radial forearm flap. The possibility of postoperative adjuvant radiation therapy and possibly even chemotherapy was reviewed and would depend upon histopathologic results, for example if advanced or adverse features were identified . Alternatively, I reviewed the option of primary non-surgical therapy including radiation, or chemoradiation therapy in organ preservation format although for oral tumors this would be less standard and may be associated with worse oncologic outcome compared to surgery. I also reviewed that with nonsurgical therapy that even if successful from an oncologic standpoint that there can still be significant negative functional consequences in a substantial percentage of patients which could be long-term or permanent. Referral to radiation oncology/medical oncology was offered should the patient wish to discuss or pursue nonsurgical options further. Finally, I reviewed the option of no treatment but did not recommend this and explained the risks of no treatment including likely continued growth and progression of disease, development of increasing symptoms, and ultimately life-threatening consequences including which the patient would need to accept if opting for no treatment. I also discussed that no matter which treatment type is elected that neither oncologic cure nor functional/cosmetic outcome can be guaranteed. I reviewed with patient risks, benefits, alternatives, and possible outcomes of surgery/treatment including but not limited to: bleeding, infection, risk of recurrence in the future, scar formation/cosmetic deformity, poor wound healing/wound breakdown, possible need for additional treatment if thefuture such as further surgery, radiation, and/or chemotherapy, as well as general risks including heart attack, stroke and . Risks relating to tongue/oral cavity resection were reviewed including swallowing/speech dysfunction, numbness, pain, motion impairment, tongue tethering, salivary fistula and hemorrhage. I discussed the likely possibility of tracheostomy and/or feeding tube as adjunctive measures which if carried out, are hoped to be temporary, although the possibility of long-termneed was also discussed. Risks and possible outcomes specifically relating to neck dissection were also reviewed including potential for single or multiple cranial nerve deficits resulting in weakness and/or numbness of the face, tongue, shoulder, and/or neck, lymphatic fistula, change in neck contour/deformity. Risks and possible outcomes relating to free flap reconstruction were reviewed including potential for partial or total free flap failure, need for revision, as well as donor site complications. Potential for donor site complications were reviewed including neurologic and/or vascular compromise of the arm/hand, tendon exposure/infection/poor healing, likely need for skin graft to the forearm donor site, skin graft failure, arm/hand numbness, loss or reduced use of arm/hand, chronic pain/discomfort, deformity/scar. After review of the various options, Mr. Cordero has opted to proceed with surgery as part of his overall management which I believe is reasonable for his condition.I believe that Mr. Cordero has a good understanding of the issues involved and I answered all of his questions. - Will obtain OSH pathology report; request placed today - Recommend CT neck and chest to complete staging -Pt edentulous so no dental clearance required -Referrals to social work, nutrition and OFFICE SYSTEM ANALYST placed today - Will add on for H&N multidisciplinary tumor board -Will arrange follow up with Dr. Villarreal on 05/26 -Will help arrange imaging, PSE, OFFICE SYSTEM ANALYST on same day as pt travels from [place], [place] -Case request placed today and We will hence proceed with scheduling surgery in the near future as well as order appropriate preoperative testing and evaluation prior to surgery. Thank you so much for allowing me to participate in the care of this patient. Please feel free to contact me if you have any questions or concerns. Giorgio Mi MD Otolaryngology - Head and Neck Surgery [facility] Pager: [phone] documented in this [id number] History of Present illness Narrative* Ting Naik RN - 05/11/2024 1:12 PM EDT Identification was verified by patient verbalizing his name and date of . * Giorgio Mi MD - 05/11/2024 1:00 PM EDT Images from the original note were not included. OTOLARYNGOLOGY - HEAD & NECK SURGERY CLINIC NOTE CHIEF COMPLAINT: Chief Complaint Patient presents with New patient, to establish relationship Tongue mass HPI: Quirino Cordero is a 74 year old male with PMH significant for HTN who presents today, 05/11/2024, at the [facility] at the request of Referring Provider: Bartolo Child for my opinion and further evaluation of tongue mass. Recent biopsy + SCCa. Today, pt reports left sided tongue soreness that started in December. He was seen by PCP and ENT and there were not concerns for malignancy at that time. He continued to have persistent symptoms and then obtained recent biopsy but was unaware of biopsy results until visit today. He feels like it's relatively stable size. Associated with intermittent left aural pain. Reports pain with eating. Deniesfevers, chills, unintentionalweight loss, night sweats, otalgia, sore throat, oral bleeding, dysphagia, odynophagia, voice changes, shortness of breath, hemoptysis or new lesions/masses. Denies history of radiation or previous of head/neck surgery other than dental extractions. Denies history of cardiac or pulmonary issues. Able to walk/up downstairs without issues. Not currently on any anticoagulation or antiplatelet therapy. Former smoker (1/2 ppd x 10 yrs). Denies history of significant alcohol use. Now retired. ROS: Constitutional: Negative for fever, chills, and weight loss overweight gain. Skin: Negative for rash, itchiness, dryness HENT: Negative for ear pain, sore throat and hoarseness. Negative for difficulty swallowing. Cardiovascular: Negative for chest pain and dyspnea on exertion (Can climb up 2 floors). Respiratory: Negative for shortness of breath and increased work of breathing. Gastrointestinal: Negative for nausea and vomiting. Neurological: Negative for headaches. Lymph/Heme: Negative for lymphadenopathy or easy bruising Musculoskeletal: Negative for joint or muscle pain Psychiatric: The patient is not nervous/anxious. All other systems are negative except for that listed in the HPI. Past Medical/Surgical History: He has no past medical history on file. His has no past surgical history on file. Past Family/Social History: His family history is not on file. He reports that he quit smoking about 49 years ago. His smoking use included cigarettes. He has never used smokeless tobacco. Medications/Allergies/Immunizations: His current medication(s) include: @CMEDLISTP@ Allergies: Patient has no known allergies., Immunizations: Immunization History Administered Date(s) Administered Influenza, injectable, high-dose seasonal, quadrivalent, 0.7 mL, preservative free (DNZ=511) 08/09/2022 Influenza, injectable, quadrivalent, preservative free (IIV4) (EEJ=671) 08/04/2018, 08/04/2019 Influenza, injectable, trivalent (IIV3) (OYV=601) 07/30/2017 Influenza, seasonal vaccine, quadrivalent, adjuvanted, 0.5mL dose, preservative free (CVK=593) 07/13/2020, 08/13/2021 Moderna Bivalent (6m-5y dose 1 or 2, 25 mcg/0.25 mL; 6-11y any dose, 25 mcg/0.25 mL; 12+ yrs any dose, 50 mcg/0.5 mL) COVID-19, mRNA, (YGX=098) 10/14/2022 Moderna Monovalent (12+ yrs) COVID-19 vaccine, mRNA, spike protein, LNP, PF, 100 mcg/0.5 mL (GTF=784) 12/28/2020, 01/25/2021, 09/14/2021, 03/19/2022 Pneumococcal conjugate 13 valent (PCV13) (GQU=845) 04/13/2015, 08/04/2019 Pneumococcal conjugate 20 valent (PCV20), polysaccharide [id number] conjugate, adjuvant, PF (FMG=340) 07/22/2023 Pneumococcal polysaccharide 23 Valent (PPSV23) (CVX=33) 04/16/2016, 08/08/2020 Tdap (RXH=488) 04/13/2015 Zoster Recombinant (RZV,Shingles) (MFW=618) 08/04/2023, 10/20/2023 PHYSICAL EXAM: Vital Signs: BP 151/85 Pulse 66 Temp 97.3 F (36.3 C) (Temporal) Resp 20 Ht 5' 7 (1.702 m) Wt 236 lb 1.6 oz (107.1 kg) Comment: clothed SpO2 98% BMI 36.98 kg/m General: Well-developed, well-nourished. In no acute distress. Communication and Voice: Clear pitch and clarity Respiratory Respiratory effort: Equal inspiration and expiration without stridor Neuro: Appropriate mood and affect; Cranial nerves II-XII are intact Head and Face Inspection: Normocephalic and atraumatic without mass or lesion Palpation: Facial skeleton intact without bony stepoffs Facial Strength: Facial motility symmetric and full bilaterally Eyes: No nystagmus with normal extraocular motion bilaterally ENT External nose: No scar or anatomic deformity TMJ: No pain to palpation with full mobility Salivary Glands: No mass or tenderness Lips: No lesion. Oral cavity: Moist mucosa. Firm, relatively exophytic and granular left lateral tongue lesion (approx 3 x 2 cm) with no extension onto the mandible or into base of tongue. Oropharynx: No mass or lesion. Tonsillar fossa symmetric. Base of tongue soft without mass or induration on palpation Larynx: Unable to fully visualize larynx on indirect mirror laryngoscopy due to gag reflex Neck Trachea: Midline trachea. Thyroid: No mass or nodularity. Lymphatics: No palpable cervical lymphadenopathy. Donor Sites: Pt right handed. Normal Niko's test on left hand with appropriate perfusion with both ulnar and radial a. occluded Procedure: Procedure: Flexible fiberoptic nasopharyngolaryngoscopy Indications: Need for detailed exam, hyperactive gag reflex, inadequate mirror visualization Surgeon: Giorgio Mi MD was present for the entirety of the procedure Procedure: After informed discussion of the risks, benefits, and alternatives, fiberoptic nasopharyngolaryngsocopy was recommended for the above indications, and the patient consented without furtherquestions. Next, a flexible scope was easily advanced into the naris. Nasal cavities were unremarkable. Nasopharynx including Eustachian tubes & fossae of Rosenmuller was unremarkable. Oropharynx including base of tongue & vallecula was unremarkable. Hypopharynx & endolarynx including epiglottis & glottis were unremarkable. Airway was patent & vocal folds were mobile bilaterally. No lesions or masses appreciated. The scope was withdrawn atraumatically. The patient tolerated the procedure well without complications. 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 I reviewed with Mr. Cordero that recommended treatment for the majority oforal malignancies include a sequential approach involving surgery to address the primary tumor and neck region. Surgery, if elected, would involve triple endoscopy, partial glossectomy, left neck dissection and given the nature of the anticipated defect, likely free flap reconstruction such as radial forearm flap. The possibility of postoperative adjuvant radiation therapy and possibly even chemotherapy was reviewed and would depend upon histopathologic results, for example if advanced or adverse features were identified . Alternatively, I reviewed the option of primary non-surgical therapy including radiation, or chemoradiation therapy in organ preservation format although for oral tumors this would be less standard and may be associated with worse oncologic outcome compared to surgery. I also reviewed that with nonsurgical therapy that even if successful from an oncologic standpoint that there can still be significant negative functional consequences in a substantial percentage of patients which could be long-term or permanent. Referral to radiation oncology/medical oncology was offered should the patient wish to discuss or pursue nonsurgical options further. Finally, I reviewed the option of no treatment but did not recommend this and explained the risks of no treatment including likely continued growth and progression of disease, development of increasing symptoms, and ultimately life-threatening consequences including which the patient would need to accept if opting for no treatment. I also discussed that no matter which treatment type is elected that neither oncologic cure nor functional/cosmetic outcome can be guaranteed. I reviewed with patient risks, benefits, alternatives, and possible outcomes of surgery/treatment including but not limited to: bleeding, infection, risk of recurrence in the future, scar formation/cosmetic deformity, poor wound healing/wound breakdown, possible need for additional treatment if thefuture such as further surgery, radiation, and/or chemotherapy, as well as general risks including heart attack, stroke and . Risks relating to tongue/oral cavity resection were reviewed including swallowing/speech dysfunction, numbness, pain, motion impairment, tongue tethering, salivary fistula and hemorrhage. I discussed the likely possibility of tracheostomy and/or feeding tube as adjunctive measures which if carried out, are hoped to be temporary, although the possibility of long-termneed was also discussed. Risks and possible outcomes specifically relating to neck dissection were also reviewed including potential for single or multiple cranial nerve deficits resulting in weakness and/or numbness of the face, tongue, shoulder, and/or neck, lymphatic fistula, change in neck contour/deformity. Risks and possible outcomes relating to free flap reconstruction were reviewed including potential for partial or total free flap failure, need for revision, as well as donor site complications. Potential for donor site complications were reviewed including neurologic and/or vascular compromise of the arm/hand, tendon exposure/infection/poor healing, likely need for skin graft to the forearm donor site, skin graft failure, arm/hand numbness, loss or reduced use of arm/hand, chronic pain/discomfort, deformity/scar. After review of the various options, Mr. Cordero has opted to proceed with surgery as part of his overall management which I believe is reasonable for his condition.I believe that Mr. Cordero has a good understanding of the issues involved and I answered all of his questions. - Will obtain OSH pathology report; request placed today - Recommend CT neck and chest to complete staging -Pt edentulous so no dental clearance required -Referrals to social work, nutrition and OFFICE SYSTEM ANALYST placed today - Will add on for H&N multidisciplinary tumor board -Will arrange follow up with Dr. Villarreal on 05/26 -Will help arrange imaging, PSE, OFFICE SYSTEM ANALYST on same day as pt travels from [place], [place] -Case request placed today and We will hence proceed with scheduling surgery in the near future as well as order appropriate preoperative testing and evaluation prior to surgery. Thank you so much for allowing me to participate in the care of this patient. Please feel free to contact me if you have any questions or concerns. 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 Former smoker Personal history of tobacco use, presenting hazards to health Body mass index (BMI) 36.0-36.9, adult 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) Former smoker Personal history of tobacco use, presenting hazards to health documented in this encounter [facility]* Diagnosis 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) Former smoker Personal history of tobacco use, presenting hazards to health Oral phase dysphagia- Primary Dysphagia, oral phase 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) Former smoker Personal history of tobacco use, presenting hazards to health documented in this encounter [facility]* Diagnosis 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) Former smoker Personal history of tobacco use, presenting hazards to health Tongue cancer (HCC)- Primary Malignant neoplasm of tongue, unspecified site 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) Former smoker Personal history of tobacco use, presenting hazards to health documented in this encounter [facility]* Diagnosis 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) Former smoker Personal history of tobacco use, presenting hazards to health 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 Body mass index (BMI) 36.0-36.9, adult 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) Former smoker Personal history of tobacco use, presenting hazards to health documented in this encounter [facility]* Diagnosis 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) Former smoker Personal history of tobacco use, presenting hazards to health Pre-op testing- Primary Preoperative examination, unspecified Bradycardia, unspecified Unspecified right bundle-branch block Abnormal electrocardiogram (ECG) (EKG) Body mass index (BMI) 36.0-36.9, adult 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) Former smoker Personal history of tobacco use, presenting hazards to health documented in this encounter [facility]* Diagnosis 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) Former smoker Personal history of tobacco use, presenting hazards to health 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) Former smoker Personal history of tobacco use, presenting hazards to health documented in this encounter [facility]* Diagnosis 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) Former smoker Personal history of tobacco use, presenting hazards to health Urinary retention Retention of urine, unspecified Former smoker Personal history of tobacco use, presenting hazards to health documented in this encounter [facility]* Diagnosis Oral phase dysphagia- Primary Dysphagia, oral phase 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) documented in this encounter [facility]* Diagnosis 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 documented in this encounter [facility]* Diagnosis 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 Oral phase dysphagia Dysphagia, oral phase Dietary counseling Dietary surveillance and counseling Weight loss Loss of weight Severe malnutrition (HCC) Nutritional marasmus documented in this encounter [facility]* Diagnosis 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) Former smoker Personal history of tobacco use, presenting hazards to health documented in this encounter [facility]* Diagnosis Oral phase dysphagia- Primary Dysphagia, oral phase 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) documented in this encounter [facility]* Diagnosis 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 Oral phase dysphagia Dysphagia, oral phase Dietary counseling Dietary surveillance and counseling documented in this encounter [facility]* Diagnosis 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) Former smoker Personal history of tobacco use, presenting hazards to health Body mass index (BMI) 35.0-35.9, adult documented in this encounter [facility]* Diagnosis Tongue mass- Primary Swelling, mass, or lump in head and neck documented in this encounter [facility]* Diagnosis 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 documented in this encounter [facility]* Diagnosis 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 Body mass index (BMI) 30.0-30.9, adult documented in this encounter [facility]* Diagnosis 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 Body mass index (BMI) 30.0-30.9, adult documented in this encounter [facility]* Diagnosis Onset Date Resolution Status Admit Date 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 May 30 9:35am [facility] Work Phone: Reason for referral (narrative)No reason for referral information availableBlBarstow Community Hospital Work Phone: Family History No Family History Records Found Relationship Condition Age at Onset Recorded Date/T gentry Unknown Family History?- Unknown December 22, 2020 2:39pm Family History?Diabetes Unknown Valentino 2020 2:39pm Relationship Condition Age at Onset Recorded Date/T gentry sister Malignant neoplasm Unknown mother Malignant neoplasm Unknown father Diabetes mellitus Unknown Cardiac disease Unknown Advance Directives No Advanced Directives Records Found Advance Directive Response Recorded Date/ Time Living Will Yes December 22, 2020 4:05pm Power of Musculoskeletal Physiotherapist Yes December 22 4:05pm Date Activated Date Inactivated Comments 06/10/2024 6:25 PM Question Answer Comments Documentation of decision pr ocess for this code status: Discussed with patient or surrogate. This is the code status chosen by the patient/surrogate. Date Activated Date Inactivated Comments 06/10/2024 6:25 PM 06/16/2024 6:16 PM Question Answer Comments Documentation of decision pr ocess for this code status: Discussed with patient or surrogate. This is the code status chosen by the patient/surrogate. Date Activated Date Inactivated Comments 06/10/2024 6:25 PM 06/16/2024 6:16 PM Advance Directive Response Recorded Date/ Time Living Will Yes December 22, 2020 4:05pm Power of Musculoskeletal Physiotherapist Yes December 22 4:05pm Advance Directives on File No Novem 2023 12:48pm Living Will No August 30 12:48pm Power of Musculoskeletal Physiotherapist No August 30, 2024 12:48pm Name of Medical Power of Musculoskeletal Physiotherapist Susana younger August 30, 2024 12:48pm Advance Directives Yes August 12:48pm Advance Directive Response Recorded Date/ Time Advance Directives on File No Novem 2023 12:48pm Living Will No August 30 12:48pm Do you have a Healthcare Pow er of Musculoskeletal Physiotherapist? No August 30, 2024 12:48pm Name of Medical Power of Musculoskeletal Physiotherapist Susana Mayendaughter August 30, 2024 12:48pm Advance Directives Yes August 12:48pm Living Will Yes December 22, 2020 4:05pm Do you have a Healthcare Pow er of Musculoskeletal Physiotherapist? Yes December 22, 2020 4:05pm Advance Directive Response Recorded Date/ Time Advance Directives on File No Novem 2023 12:48pm Living Will No August 30 12:48pm Do you have a Healthcare Pow er of Musculoskeletal Physiotherapist? 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 Question Answer Reason for consult? 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) Procedures FIBEROP ENDOSC EVAL/SWALLOWING LARYNGOSCOPY, FLEXIBLE/RIGID FIBEROPTIC, W/STROBOSCOPY EVALUATE SPEECH PRODUCTION BEHAVRAL QUALIT ANALYS VOICE EVAL, ORAL & PHARYNGEAL SWALLOW FUNCTION EVAL FOR USE/FIT OF VOICE PRO DYSPHAGIA THERAPY JOINT MOBILIZATION COGNITIVE REHAB INDIV THERAPY Giorgio Mi MD [address] [place] [address] [place] [address] Referral ID Status Reason Start Date Expiration Date Visits Requested Visits Authorized [id number] [facility]2024 10/12/2024 10 10 Scheduling Instructions SCHEDULING INSTRUCTIONS: Call [phone] to schedule your Speech Therapy appointment. We offer therapy services at many convenient locations. Please arrive 20 minutes prior to your appointment to register. It is important to bring your insurance cards and a personal identification card to your appointment. If you are unable to keep your appointment, cancel or reschedule by calling [phone] or via Glazeon. Thank you! Question Answer Is this for a new patient or continuation of treatment? (New = hasn't been seen for referring dx/problem for outpatient therapy in the last 3 mo.) New Patient Is this Urgent or Chronic? Urgent Is the reason for this visit Workers' Comp related? No What is the primary reason for visit? 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) Procedures CT CHEST W/ CONTRAST Giorgio Mi MD [address] [place] [address] [facility] CT SCAN Referral ID Status Reason Start Date Expiration Date Visits Requested Visits Authorized [id number] [facility] 05/11/2025 1 1 Specialty Diagnoses / Procedures Referred By Contac t Referred To Contact Radiology Diagnoses 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) Procedures CT NECK W/ CONTRAST Giorgio Mi MD [address] [place] [address] [facility] CT SCAN Referral ID Status Reason Start Date Expiration Date Visits Requested Visits Authorized [id number] Authorized Transfer of [facility] 05/11/2024 05/11/2025 1 1 Specialty Diagnoses / Procedures Referred By Contac t Referred To Contact Urology Diagnoses Urinary retention Giorgio Mi MD [address] [place] [address] [facility] UROLOGIC SURGERY [address] [place] [address] Referral ID Status Reason Start Date Expiration Date V isits Requested Visits Authorized [id number] Authorized 06/16/2024 06/16/2025 3 3 Scheduling Instructions Please call the Urology department at , option 1 to schedule an appointment if one was not made for you today. 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 No Will you be following the patient while they are recieving [facility] services Yes Was the patient seen today for a Home Care [id number] evaluation? Yes What is the qualifying diagnosis for the [facility] Services? oral cavity cancer Which [facility] services are needed? Physical Therapy, Occupational Therapy, Speech Therapy, Intermediate, Photographer Portrait Reason for [facility] services? 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) Giorgio Mi MD [address] [id number] Referral ID Status Reason Start Date Expiration Date V isits Requested Visits Authorized [id number] Authorized 06/23/2024 06/23/2025 3 3 Comments Request for Speech Therapy in [facility] left lateral tongue SCCa now s/p surgery with partial glossectomy, left neck dissection (Latrice) and left forearm free flap Tricia Specialty Diagnoses / Procedures Referred By Mara up Referred To Contact Diagnoses 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 2/ nodes, PNI/LVI +, initial deep muscular soft tissue margin positive but re- resection at anterior floor of mouth Margin negative for invasive carcinoma, with close intralymphatic tumor (single minute focus of intralymphatic carcinoma present on permanent sections but not on frozen sections). Referral for adjuvant med/rad onc Specialty Diagnoses / Procedures Referred By Mara up Referred To Contact Ent-Otolaryngology Diagnoses Tongue mass Salvador Brown MD [address] [place] [address] [facility] [address] [place] [address] Referral ID Status Reason Start Date Expiration Date V isits Requested Visits Authorized [id number] Pending Review 05/06/2024 05/06/2025 3 3 Scheduling Instructions Please call the Otolaryngology/Allergy (ENT) Clinic at to schedule an appointment if one was not made for you today. Question Answer Patient to be evaluated for: Throat Chief Complaint and Reason for Visit Chief Complaint Admit Date 1WK LABS TX August 30, 2024 8:16am OTV September 01, 2024 8:25am Amb Documentation September 01, 2024 11:09am 1 WK - LABS September 06, 2024 9:55am 1 WK - LABS September 14, 2024 1 2:30pm 1 MONTH F/U POST RT September 27, 2024 8:20am SCHEDULE PER MW February 3rd, 2025 1 0:30am F/U TREATED H&N CANCER, COMPARE TO PRIOR December 10, 2024 8:00am 2.5 MONTH F/U H/N, REVIEW CT December 14, 2024 10:29am 3 MO, LABS December 14, 2024 10:3 0am port draw December 14, 2024 10:4 5am PEG REMOVAL December 22, 2024 8:1 3am Reason for Visit Admit Date Encounter for chemotherapy management No vember 2023 8:16am Squamous cell carcinoma meta static to lymph nodes of head and neck August 30, 2024 8:16am Squamous cell carcinoma of oral cavity N ovember 2023 8:16am 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 August 30, 2024 8:16am Squamous cell carcinoma of oral cavity N ovember 2023 8:25am Squamous cell carcinoma meta static to lymph nodes of head and neck September 06, 2024 9:55am Squamous cell carcinoma of oral cavity N ovember 2023 9:55am 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 September 06, 2024 9:55am Squamous cell carcinoma meta static to lymph nodes of head and neck September 14, 2024 12:30pm Squamous cell carcinoma of oral cavity D ecember 2023 12:30pm 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 September 14, 2024 12:30pm Prerenal azotemia September 14, 2024 1 2:30pm Squamous cell carcinoma of oral cavity D ecember 2023 8:20am Squamous cell carcinoma of oral cavity M arch 2024 10:29am Squamous cell carcinoma meta static to lymph nodes of head and neck December 14, 2024 10:30am Squamous cell carcinoma of oral cavity M arch 2024 10:30am Dysphagia December 22, 2024 8:1 3am Chief Complaint Admit Date 1 MONTH F/U POST RT September 27, 2024 8:20am SCHEDULE PER MW November 15, 2024 1 0:30am F/U TREATED H&N CANCER, COMPARE TO PRIOR December 10, 2024 8:00am DYSPHAGIA December 10, 2024 1:00pm 2.5 MONTH F/U H/N, REVIEW CT December 14, 2024 10:29am 3 MO, LABS December 14, 2024 10:3 0am port draw December 14, 2024 10:4 5am PEG REMOVAL December 22, 2024 8:1 3am Reason for Visit Admit Date Squamous cell carcinoma of oral cavity D ecember 2023 8:20am Squamous cell carcinoma of oral cavity M arch 2024 10:29am Squamous cell carcinoma meta static to lymph nodes of head and neck December 14, 2024 10:30am Squamous cell carcinoma of oral cavity M 2024 10:30am Dysphagia December 22, 2024 8:1 3am Chief Complaint Admit Date SCHEDULE PER MW November 15, 2024 1 0:30am F/U TREATED H&N CANCER, COMPARE TO PRIOR December 10, 2024 8:00am DYSPHAGIA December 10, 2024 1:00pm 2.5 MONTH F/U H/N, REVIEW CT December 14, 2024 10:29am 3 MO, LABS December 14, 2024 10:3 0am PEG REMOVAL December 22, 2024 8:1 3am port draw January 25, 2025 2:3 0pm Reason for Visit Admit Date Squamous cell carcinoma of oral cavity M 2024 10:29am Squamous cell carcinoma meta static to lymph nodes of head and neck December 14, 2024 10:30am Squamous cell carcinoma of oral cavity M 2024 10:30am Dysphagia December 22, 2024 8:1 3am Chief Complaint Admit Date port draw April 26, 2025 2:30 pm 6 MONTH F/U H/N May 30, 2025 9: 35am Reason for Visit Admit Date Squamous cell carcinoma of oral cavity A ugust 2024 9:35am Chief Complaint Admit Date 6 MONTH F/U H/N May 30, 2025 9: 35am 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, unspe cified June 03, 2025 12:24pm port draw June 07, 2025 2: 30pm Summary Purpose Additional Source Comments Goals (unrecognized section and content) Goals may be documented in a n alternate sectionGoals may be documented in an alternate sectionGoals may be documented in an alternate sectionGoals may be documented in an alternate sectionGoals may be documented in an alternate sectionGoals may be documented in an alternate sectionGoals may be documented in an alternate sectionGoals may be documented in an alternate sectionGoals may be documented in an alternate section Care Teams (unrecognized sec tion and content) Team Status: Active Member Role Status Dates Dr. Salvador Brown MD Family Provider Active Dr. Salvador Brown MD Primary Care Provider Active Team Status: Inactive Member Role Status Dates Dr. Salvador Brown MD Primary Care Provide r, Attending Provider, Referring Provider Active Team Status: Inactive Member Role Status Dates Dr. Salvador Brown MD Primary Care Provider, Attending P fer Active [employer] Relationship Specialty Start Date End Date Giorgio Mi MD [address] [place] [address] 26073 Physician Otolaryngology 05/15/24 [employer] Relationship Specialty Start Date End Date Giorgio Mi MD [address] [place] [address] 88891 Physician Otolaryngology 05/15/24 [employer] Relationship Specialty Start Date End Date Giorgio Mi MD [address] [place] [address] 16939 Physician Otolaryngology 05/15/[address] [place] [address] [place] [address] Dietitian Nutrition 05/20/24 [employer] Relationship Specialty Start Date End Date Giorgio Mi MD [address] [place] [address] 99558 Physician Otolaryngology 05/15/[address] [place] [address] [place] [address] Dietitian Nutrition 05/20/24 [employer] Relationship Specialty Start Date End Date Giorgio Mi MD [address] [place] [address] 36612 Physician Otolaryngology 05/15/[address] [place] [address] [place] [address] Dietitian Nutrition 05/20/24 [employer] Relationship Specialty Start Date End Date Giorgio Mi MD [address] [place] [address] 89706 Physician Otolaryngology 05/15/[address] [place] [address] [place] [address] Dietitian Nutrition 05/20/24 [employer] Relationship Specialty Start Date End Date Giorgio Mi MD [address] [place] [address] 00474 Physician Otolaryngology 05/15/[address] [place] [address] [place] [address] Dietitian Nutrition 05/20/24 [employer] Relationship Specialty Start Date End Date Giorgio Mi MD [address] [place] [address] 98302 Physician Otolaryngology 05/15/[address] [place] [address] [place] [address] Dietitian Nutrition 05/20/24 [employer] Relationship Specialty Start Date End Date Giorgio Mi MD [address] [place] [address] 70685 Physician Otolaryngology 05/15/[address] [place] [address] [place] [address] Dietitian Nutrition 05/20/24 [employer] Relationship Specialty Start Date End Date Giorgio Mi MD [address] [place] [address] 32655 Physician Otolaryngology 05/15/[address] [place] [address] [place] [address] Dietitian Nutrition 05/20/24 [employer] Relationship Specialty Start Date End Date Giorgio Mi MD [address] [place] [address] 68243 Physician Otolaryngology 05/15/[address] [place] [address] [place] [address] Dietitian Nutrition 05/20/24 [employer] Relationship Specialty Start Date End Date Giorgio Mi MD [address] [place] [address] 54452 Physician Otolaryngology 05/15/[address] [place] [address] [place] [address] Dietitian Nutrition 05/20/24 [employer] Relationship Specialty Start Date End Date Giorgio Mi MD [address] [place] [address] 66424 Physician Otolaryngology 05/15/[address] [place] [address] [place] [address] Dietitian Nutrition 05/20/24 Bossman Jeronimo, [facility]-OFFICE SYSTEM ANALYST [address] [place] [address] 87640 Speech Language Pathologist Speech Pathology 06/19/24 Clayton Villarreal MD [address] [place] [address] 43942 Physician Otolaryngology 06/19/24 Arlette Fuentes APRN-ELECTRODE TURNER AND FINISHER [address] [place] [address] 33101 MULTICULTURAL INTERNSHIP Anesthesiology 06/19/24 [employer] Relationship Specialty Start Date End Date Giorgio Mi MD [address] [place] [address] 66507 Physician Otolaryngology 05/15/[address] [place] [address] [place] [address] Dietitian Nutrition 05/20/24 Bossman Jeronimo, [employer]-OFFICE SYSTEM ANALYST [address] [place], [place] [id number] Speech Language Pathologist Speech Pathology 06/19/24 Clayton Villarreal MD [address] [place] [address] 00177 Physician Otolaryngology 06/19/24 Arlette Fuentes APRN-ELECTRODE TURNER AND FINISHER [address] [place] [address] 51626 MULTICULTURAL INTERNSHIP Anesthesiology 06/19/24 [employer] Relationship Specialty Start Date End Date Giorgio Mi MD [address] [place] [address] 97546 Physician Otolaryngology 05/15/[address] [place] [address] [place] [address] Dietitian Nutrition 05/20/24 Bossman Jeronimo CCC-OFFICE SYSTEM ANALYST [address] [place] [address] 00068 Speech Language Pathologist Speech Pathology 06/19/24 Clayton Villarreal MD [address] [place] [address] 34395 Physician Otolaryngology 06/19/24 Arlette Fuentes APRN-ELECTRODE TURNER AND FINISHER [address] [place] [address] 48775 MULTICULTURAL INTERNSHIP Anesthesiology 06/19/24 [employer] Relationship Specialty Start Date End Date Giorgio Mi MD [address] [place] [address] 11438 Physician Otolaryngology 05/15/[address] [place] [address] [place] [address] Dietitian Nutrition 05/20/24 Bossman Jeronimo, CCC-OFFICE SYSTEM ANALYST [address] [place] [address] 02519 Speech Language Pathologist Speech Pathology 06/19/24 Clayton Villarreal MD [address] [place] [address] 64827 Physician Otolaryngology 06/19/24 Arlette Fuentes APRN-ELECTRODE TURNER AND FINISHER [address] [place] [address] 81545 M[employer]IC[employer]URAL INTERNSHIP Anesthesiology 06/19/24 [employer] Relationship Specialty Start Date End Date Giorgio Mi MD [address] [place] [address] 70337 Physician Otolaryngology 05/15/[address] [place] [address] [place] [address] Dietitian Nutrition 05/20/24 Bossman Jeronimo CCC-OFFICE SYSTEM ANALYST [address] [place] [address] 81272 Speech Language Pathologist Speech Pathology 06/19/24 Clayton Villarreal MD [address] [place] [address] 80990 Physician Otolaryngology 06/19/24 Arlette Fuentes APRN-ELECTRODE TURNER AND FINISHER [address] [place] [address] 25359 MULTIC[employer]URAL INTERNSHIP Anesthesiology 06/19/24 [employer] Relationship Specialty Start Date End Date Giorgio Mi MD [address] [place] [address] 97620 Physician Otolaryngology 05/15/24 Duyen Enciso, NATHEN [address] [place] [address] 81999 Dietitian Nutrition 05/20/24 Bossman Jeronimo, CCC-OFFICE SYSTEM ANALYST [address] [place] [address] 68678 Speech Language Pathologist Speech Pathology 06/19/24 Clayton Villarreal MD [address] [place] [address] 68714 Physician Otolaryngology 06/19/24 Arlette Fuentes APRN-ELECTRODE TURNER AND FINISHER [address] [place] [address] 98685 MULTICULTURAL INTERNSHIP Anesthesiology 06/19/24 [employer] Relationship Specialty Start Date End Date Giorgio Mi MD [address] [place] [address] 73795 Physician Otolaryngology 05/15/[address] [facility] [place] [address] Dietitian Nutrition 05/20/24 Bossman Jeronimo CCC-OFFICE SYSTEM ANALYST [address] [place] [address] 59812 Speech Language Pathologist Speech Pathology 06/19/24 Clayton Villarreal MD [address] [place] [address] 21537 Physician Otolaryngology 06/19/24 Arlette Fuentes APRN-ELECTRODE TURNER AND FINISHER [address] [place] [address] 17205 M[employer]ICULTURAL INTERNSHIP Anesthesiology 06/19/24 [employer] Relationship Specialty Start Date End Date Giorgio Mi MD [address] [place] [address] 92891 Physician Otolaryngology 05/15/[address] [place] [address] [place] [address] Dietitian Nutrition 05/20/24 Bossman Jeronimo, CCC-OFFICE SYSTEM ANALYST [address] [place] [address] 23040 Speech Language Pathologist Speech Pathology 06/19/24 Clayton Villarreal MD [address] [place] [address] 15009 Physician Otolaryngology 06/19/24 Arlette Fuentes APRN-ELECTRODE TURNER AND FINISHER [address] [place] [address] 39702 M[employer]IC[employer] INTERNSHIP Anesthesiology 06/19/24 [employer] Relationship Specialty Start Date End Date Giorgio Mi MD [address] [place] [address] 88333 Physician Otolaryngology 05/15/[address] [place] [address] [place] [address] Dietitian Nutrition 05/20/24 Bossman Jeronimo, CCC-OFFICE SYSTEM ANALYST [address] [place], [place] [phone] Speech Language Pathologist Speech Pathology 06/19/24 Clayton Villarreal MD [address] [place] [address] 20241 Physician Otolaryngology 06/19/24 Arlette Fuentes APRN-ELECTRODE TURNER AND FINISHER [address] [place] [address] 66257 MULTICULTURAL INTERNSHIP Anesthesiology 06/19/24 Omayra Herrera CCC-OFFICE SYSTEM ANALYST [address] [place] [address] [place] [id number] Speech Language Pathologist Speech Pathology 07/17/24 [employer] Relationship Specialty Start Date End Date Giorgio Mi MD [address] [place] [address] 97312 Physician Otolaryngology 05/15/[address] [place] [address] [place] [address] Dietitian Nutrition 05/20/24 Bossman Jeronimo, CCC-OFFICE SYSTEM ANALYST [address] [place] [address] 93402 Speech Language Pathologist Speech Pathology 06/19/24 Clayton Villarreal MD [address] [place] [address] 82417 Physician Otolaryngology 06/19/24 Arlette Fuentes APRN-CNP [address] [place] [address] 02231 MULTICULTURAL INTERNSHIP Anesthesiology 06/19/24 Omayra Herrera [facility]-OFFICE SYSTEM ANALYST [address] [facility] [address] Speech Language Pathologist Speech Pathology 07/17/24 Team Status: Active Member Role Status Dates Dr. Salvador Brown MD Primary Care Provider Active Team Status: Inactive Member Role Status Dates Dr. Salvador Brown MD Primary Care Provider Active Start: August 30, 2024 End: August 30, 2024 Dr. Salvador Brown MD Referring Provider Active St art: August 30, 2024 End: August 30, 2024 Ema Hdez NP, [employer]-C Attending Provider Active Start: August 30, 2024 End: August 30, 2024 Team Status: Inactive Member Role Status Dates Dr. Salvador Brown MD Primary Care Provider Active Start: September 01, 2024 End: September 01, 2024 Dr. Cain Connor DO Attending Provider Active Start: September 01, 2024 End: September 01, 2024 Dr. Cain Connor DO Referring Provider Active Start: September 01, 2024 End: September 01, 2024 Team Status: Active Member Role Status Dates Dr. Salvador Brown MD Primary Care Provider Active Start: September 01, 2024 Dr. Cain Connor DO Attending Provider Active Start: September 01, 2024 Team Status: Inactive Member Role Status Dates Dr. Salvador Brown MD Primary Care Provider Active Start: September 06, 2024 End: September 06, 2024 Dr. Salvador Brown MD Referring Provider Active St art: September 06, 2024 End: September 06, 2024 Ema Hdez [employer] TECH, [employer] TECH-C Attending Provider Active Start: September 06, 2024 End: September 06, 2024 Team Status: Inactive Member Role Status Dates Dr. Salvador Brown MD Primary Care Provider Active Start: September 14, 2024 End: September 14, 2024 Dr. Salvador Brown MD Referring Provider Active St art: September 14, 2024 End: September 14, 2024 Dr. Harley Maurice MD Attending Provider Active Start: September 14, 2024 End: September 14, 2024 Team Status: Inactive Member Role Status Dates Dr. Salvador Brown MD Primary Care Provider Active Start: September 27, 2024 End: September 27, 2024 Dr. Salvador Brown MD Referring Provider Active St art: September 27, 2024 End: September 27, 2024 Dr. Cain Connor DO Attending Provider Active Start: September 27, 2024 End: September 27, 2024 Team Status: Active Member Role Status Dates Dr. Salvador Brown MD Primary Care Provider Active Start: November 15, 2024 Dr. Cain Connor DO Attending Provider Active Start: November 15, 2024 Dr. Cain Connor DO Referring Provider Active Start: November 15, 2024 Team Status: Inactive Member Role Status Dates Dr. Salvador Brown MD Primary Care Provider Active Start: December 10, 2024 End: December 10, 2024 Dr. Cain Connor DO Attending Provider Active Start: December 10, 2024 End: December 10, 2024 Dr. Cain Connor DO Referring Provider Active Start: December 10, 2024 End: December 10, 2024 Team Status: Inactive Member Role Status Dates Dr. Salvador Brown MD Primary Care Provider Active Start: December 14, 2024 End: December 14, 2024 Dr. Salvador Brown MD Referring Provider Active St art: December 14, 2024 End: December 14, 2024 Dr. Cain Connor DO Attending Provider Active Start: December 14, 2024 End: December 14, 2024 Team Status: Inactive Member Role Status Dates Dr. Salvador Brown MD Primary Care Provider Active Start: December 14, 2024 End: December 14, 2024 Dr. Salvador Brown MD Referring Provider Active St art: December 14, 2024 End: December 14, 2024 Dr. Harley Maurice MD Attending Provider Active Start: December 14, 2024 End: December 14, 2024 Team Status: Active Member Role Status Dates Dr. Salvador Brown MD Primary Care Provider Active Start: December 14, 2024 Dr. Cain Connor DO Referring Provider Active Start: December 14, 2024 Dr. Harley Maurice MD Attending Provider Active Start: December 14, 2024 Dr. Harley Maurice MD Other Provider Active Start: December 14, 2024 Team Status: Inactive Member Role Status Dates Dr. Salvador Brown MD Primary Care Provider Active Start: December 22, 2024 End: December 22, 2024 Dr. Salvador Brown MD Referring Provider Active St art: December 22, 2024 End: December 22, 2024 Dr. Ash Conde MD Attending Provider Active Start: December 22, 2024 End: December 22, 2024 Team Status: Inactive Member Role Status Dates Dr. Salvador Brown MD Primary Care Provider Active Start: November 15, 2024 End: November 15, 2024 Dr. Cain Connor DO Attending Provider Active Start: November 15, 2024 End: November 15, 2024 Dr. Cain Connor DO Referring Provider Active Start: November 15, 2024 End: November 15, 2024 Team Status: Active Member Role Status Dates Dr. Salvador Brown MD Primary Care Provider Active Start: January 25, 2025 Dr. Cain Connor DO Referring Provider Active Start: January 25, 2025 Dr. Harley Maurice MD Attending Provider Active Start: January 25, 2025 Dr. Harley Maurice MD Other Provider Active Start: January 25, 2025 [employer] Relationship Specialty Start Date End Date Giorgio Mi MD [address] [place] [address] Physician Otolaryngology 05/15/[address] [place] [address] [place] [id number] Dietitian Nutrition 05/20/24 Bossman Jeronimo CCC-OFFICE SYSTEM ANALYST [address] [place] [address] Speech Language Pathologist Speech Pathology 06/19/24 Clayton Villarreal MD [address] [place], [place] [phone] Physician Otolaryngology 06/19/24 Arlette Fuentes APRN-ELECTRODE TURNER AND FINISHER [address] [place] [address] [employer] Anesthesiology 06/19/24 Omayra Herrera, CCC-OFFICE SYSTEM ANALYST [address] [place] [address] [place] [id number] Speech Language Pathologist Speech Pathology 07/17/24 [employer] Relationship Specialty Start Date End Date Giorgio Mi MD [address] [place] [address] Physician Otolaryngology 05/15/[address] [place] [address] [place] [address] Dietitian Nutrition 05/20/24 Bossman Jeronimo, CCC-OFFICE SYSTEM ANALYST [address] [place] [address] Speech Language Pathologist Speech Pathology 06/19/24 Clayton Villarreal MD [address] [place] [address] Physician Otolaryngology 06/19/24 Arlette Fuentes APRN-ELECTRODE TURNER AND FINISHER [address] [place] [address] [employer] Anesthesiology 06/19/24 Omayra Herrera, CCC-OFFICE SYSTEM ANALYST [address] [place], [place] [id number] Speech Language Pathologist Speech Pathology 07/17/24 Team Status: Active Member Role/Relationship Status Dates Dr. Salvador Brown MD Primary Care Provider Active Team Status: Active Member Role/Relationship Status Dates Dr. Salvador Brown MD Primary Care Provider Active Start: April 26, 2025 Dr. Cain Connor DO Referring Provider Active Start: April 26, 2025 Dr. Harley Maurice MD Attending Provider Active Start: April 26, 2025 Dr. Harley Maurice MD Other Provider Active Start: April 26, 2025 Team Status: Inactive Member Role/Relationship Status Dates Dr. Salvador Brown MD Primary Care Provider Active Start: May 30, 2025 End: May 30, 2025 Dr. Salvador Brown MD Referring Provider Active St art: May 30, 2025 End: May 30, 2025 Dr. Cain Connor DO Attending Provider Active Start: May 30, 2025 End: May 30, 2025 Team Status: Inactive Member Role/Relationship Status Dates Dr. Salvador Brown MD Primary Care Provider Active Start: May 30, 2025 End: May 30, 2025 Dr. Salvador Brown MD Referring Provider Active St art: May 30, 2025 End: May 30, 2025 Dr. Cain Connor DO Attending Provider Active Start: May 30, 2025 End: May 30, 2025 Team Status: Inactive Member Role/Relationship Status Dates Dr. Salvador Brown MD Primary Care Provider Active Start: June 03, 2025 End: June 03, 2025 Dr. Cain Connor DO Attending Provider Active Start: June 03, 2025 End: June 03, 2025 Dr. Cain Connor DO Referring Provider Active Start: June 03, 2025 End: June 03, 2025 Team Status: Active Member Role/Relationship Status Dates Dr. Salvador Brown MD Primary Care Provider Active Start: June 07, 2025 Dr. Cain Connor DO Referring Provider Active Start: June 07, 2025 Dr. Harley Maurice MD Attending Provider Active Start: June 07, 2025 Dr. 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) Procedures FIBEROP ENDOSC EVAL/SWALLOWING LARYNGOSCOPY, FLEXIBLE/RIGID FIBEROPTIC, W/STROBOSCOPY EVALUATE SPEECH PRODUCTION BEHAVRAL QUALIT ANALYS VOICE EVAL, ORAL & PHARYNGEAL SWALLOW FUNCTION EVAL FOR USE/FIT OF VOICE PRO DYSPHAGIA THERAPY JOINT MOBILIZATION COGNITIVE REHAB INDIV THERAPY Giorgio Mi MD [address] [place] [address] [place] [address] Referral ID Status Reason Start Date Expiration Date Visits Requested Visits Authorized [id number] Authorized Consultatio [facility] 05/11/2024 10/12/2024 10 10 Reason Comments New patient, to establish relationship T ongue mass Specialty Diagnoses / Procedures Referred By Contshaggy t Referred To Contact Ent-Otolaryngology Diagnoses Tongue mass Salvador Brown MD [address] [place] [address] [facility] [address] [place] [address] Referral ID Status Reason Start Date Expiration Date V isits Requested Visits Authorized [id number] Pending Review 05/06/2024 05/06/2025 3 3 Reason Onset Date Comments Outreach 05/13/2024 Reason Comments Evaluation Specialty Diagnoses / Procedures [facility] Referred To Contact Nutrition Diagnoses 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) Giorgio Mi MD [address] [place] [address] [facility] NUTRITION [address] [place] [address] Referral ID Status Reason Start Date Expiration Date Visits Requested Visits Authorized [id number] Pending Review Consultatio [facility] 05/11/2024 05/11/2025 3 3 Reason Onset Date Comments Discuss results test/procedures 05/21/2024 Reason Comments sore on tongue Specialty Diagnoses / Procedures Referred By [facility] Referred To Contact Ent-Otolaryngology Diagnoses Tongue mass Salvador Brown MD [address] [place] [id number] [facility] [address] [place] [address] Reason Onset Date Comments Requesting Medications 05/27/2024 Specialty Diagnoses / Procedures [facility] Referred To Contact General Surgery Diagnoses 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) Former smoker 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] Former smoker [Z87.891] Procedures GLOSSECTOMY; COMPOSITE PROCEDURE, W/MOUTH FLOOR/MANDIBULAR RESECTION & RADICAL NECK DISSECTION TRACHEOSTOMY, PLANNED (SEP PROC); LARYNGOSCOPY, DIRECT ESOPHAGOSCOPY RIGID Trach, partial glossectomy, left neck dissection RESECTION,HEAD AND NECK WITH FREE FLAP,SOFT TISSUE (likely left forearm with skin graft) Giorgio Mi MD [address] [place] [address] [facility] [address] [place] [address] Phone: [phone] Referral ID Status Reason Start Date Expiration Date Visits Re quested Visits Authorized [id number] 3 3 Reason Comments Care Coordination Transitional Care Management Hospital follow-up Reason Onset Date Comments Update 06/17/2024 Reason Comments Post Op Check Follow up after surg jayme Reason Comments cancer follow up Reason Comments Care Coordination Transitional Care Management Reason Comments Monitoring/follow-up Follow up from surg jayme Specialty Diagnoses / Procedures Referred By Mara up Referred To Contact Ent-Otolaryngology Diagnoses Tongue mass Salvador Brown MD [address] [place] [address] Phone: tel: fax: [facility] [address] [place] [address] Phone: tel: Reason Comments Monitoring/follow-up F/u Scheduled Active and Recently Administ ered Medications (unrecognized section and content) Medication Order 06/14/2024 06/15/2024 06/16/2024 acetaminophen (TYLENOL) 650 MG/20.3ML oral solution 1,000 mg, NG Tube, EVERY 8 HOURS, First dose on Fri06/10/24 at 2100, Until Discontinued 0600 (Hold/Not Given - Provider: Adriana Ruelas RN - Reason: Patient refused)1230 (Given - Provider: Mei Gomez RN)2123 (Given - Provider: Adriana Ruelas RN) 0618 (Given - Provider: Adriana Ruelas RN)1300 (Given - Provider: Kelly Lee, KAYLA)2152 (Given - Provider: Nasrin Loya RN) 0543 (Given - Provider: Rosetta Nava, RN)1329 (Given - Provider: Ayaka Chery, KAYLA)2100 (Due) aspirin 81 MG chewable tablet 81 mg, NG Tube, DAILY, 7 doses, First dose on Fri06/11/24 at 0900, Last dose on Ema 06/17/24 at 0900, Post-op 0903 (Given - Provider: Mei Gomez RN) 0824 (Given - Provider: Kelly Lee RN) 0900 (Given - Provider: Ayaka Chery RN) atorvastatin (LIPITOR) tablet 80 mg, Oral, EVERY EVENING, First dose on Fri06/10/24 at 2100, Until Discontinued 2122 (Given - Provider: Adriana Ruelas RN) 2151 (Given - Provider: Nasrin Loya RN) 1800 (Due) busPIRone (BUSPAR) tablet 10 mg, Oral, DAILY, First dose on Fri06/10/24 at 2100, Until Discontinued 0903 (Given - Provider: Mei Gomez RN) 0824 (Given - Provider: Kelly Lee RN) 1054 (Given - Provider: Ayaka Chery RN) chlorhexidine oral care kit with toothette (PERIDEX) solution 15 mL, Oral, EVERY 12 HOURS 8 & 8, First dose on Fri06/10/24 at 2000, Until Discontinued, Post-op 0800 (Given - Provider: Mei Gomez RN)2122 (Given - Provider: Adriana Ruelas RN) 0825 (Given - Provider: Kelly Lee RN)2027 (Given - Provider: Nasrin Loya RN) 1600 (Due - Provider: Ayaka Chery RN)2000 (Due) doxazosin (CARDURA) tablet 4 mg, Oral, DAILY, First dose on Fri06/14/24 at 1300, Until Discontinued 1406 (Given - Provider: Mei Gomez RN) 0824 (Given - Provider: Kelly Lee RN) 105 (Given - Provider: Ayaka Chery RN) heparin (porcine) 5000 UNIT/0.5ML injection 5,000 Units, Subcutaneous, Every 8 Hours - End of Shift, First dose on Fri06/11/24 at 1400, Until Discontinued 0619 (Given - Provider: Adriana Ruelas RN)1408 (Given - Provider: Mei Gomez RN)2122 (Given - Provider: Adriana Ruelas RN) 0618 (Given - Provider: Adriana Ruelas RN)1429 (Given - Provider: Kelly Lee RN)2151 (Given - Provider: Nasrin Loya RN) 0543 (Given - Provider: Rosetta Nava RN)1329 (Given - Provider: Ayaka Chery RN)2200 (Due) latanoprost (XALATAN) 0.005 % ophthalmic solution 1 Drop, Both Eyes, AT BEDTIME, First dose on Fri06/11/24 at 2200, Until Discontinued 2123 (Given - Provider: Adriana Ruelas RN) 2158 (Given - Provider: Nasrin Loya RN) 2199 (Due) metoprolol (LOPRESSOR) tablet 25 mg, NG Tube, 2 times daily, First dose on Fri06/10/24 at 2100, Until Discontinued, Post-op 0903 (Given - Provider: Mei Gomez, KAYLA)2141 (Given - Provider: Adriana Ruelas RN) 823 (Given - Provider: Kelly Lee, KAYLA)2151 (Given - Provider: Nasrin Loya, KAYLA) 1053 (Given - Provider: Ayaka Chery, KAYLA)2099 (Due) senna 8.8 MG/5ML oral syrup 8.8 mg (5 mL), Oral, 2 times daily, First dose (after last modification) on Fri06/12/24 at 0900, Until Discontinued 899 (Hold/Not Given - Provider: Mei Gomez RN - Reason: Not indicated)2099 (Hold/Not Given - Provider: Adriana Ruelas RN - Reason: Not indicated) 823 (Given - Provider: Kelly Lee RN)2153 (Given - Provider: Nasrin Loya, KAYLA) 1053 (Given - Provider: Ayaka Chery, KAYLA)2099 (Due) TUBE FEED BOLUS 360 mL 360 mL, NG Tube, 4 times daily ENAR, First dose (after last modification) on Fri06/15/24 at 1630, Until Discontinued, Tube Feeding: No Meal Tray, Tube feeding formula: Boost [facility] 1630 (Given - Provider: Kelly Lee, RN)2000 (Given - Provider: Nasrin Loya, KAYLA) 0800 (Given - Provider: Ayaka Chery, KAYLA)1400 (Given - Provider: Ayaka Chery, KAYLA)1600 (Due)2000 (Due) TUBE FEED BOLUS 400 mL (CANCELED) 400 mL, NG Tube, 4 times daily ENAR, First dose on Fri06/13/24 at 2000, Until Discontinued, Tube Feeding: No Meal Tray, Tube feeding formula: Impact Peptide 1.5/Pivot 1.5 0800 (Given - Provider: Mei Gomez, KAYLA)1200 (Given - Provider: Mei Gomez RN)1600 (Given - Provider: Mei Gomez RN)2000 (Given - Provider: Adriana Ruelas RN) 0800 (Given - Provider: Kelly Lee, KAYLA)1200 (Given - Provider: Kelly Lee RN) vitamin A & D ointment Topical, 3 TIMES DAILY, First dose on 06/13/24 at 0600, Until Discontinued, Post-op 0619 (Given - Provider: Adriana Ruelas RN)1408 (Given - Provider: Mei Gomez RN)2125 (Given - Provider: Adriana Ruelas RN) 0619 (Given - Provider: Adriana Ruelas RN)1433 (Given - Provider: Kelly Lee RN) 0024 (Given - Provider: Nasrin Loya RN)0601 (Given - Provider: Rosetta Nava RN)1600 (Due - Provider: Ayaka Chery RN)2200 (Due) Continuous Medication Order 06/14/2024 06/15/2024 06/16/2024 lactated ringers iv infusion Intravenous, at 75 mL/hr, CONTINUOUS, Starting on Ema 06/10/24 at 0700, Until Discontinued PRN Medication Order 06/14/2024 06/15/2024 06/16/2024 naloxone (NARCAN) 0.4 MG/ML injection 0.4 mg, Intravenous Push, PRN, Starting on Ema 06/10/24 at 1825, Until Discontinued, Respiratory Rate Less Than 8 for adults and less than 12 for Peds or for suspected overdose, Post-op oxyCODONE immediate release tablet(Linked Group 1) 5 mg, Oral, EVERY 4 HOURS PRN, Starting on 06/13/24 at 0750, Until Discontinued, Moderate Pain (pain score 4,5,6) 0115 (See Alternative - Provider: Adriana Ruelas RN)0803 (See Alternative - Provider: Maryanne Ashraf RN) 0824 (Given - Provider: Kelly Lee, KAYLA)2023 (Given - Provider: Nasrin Loya RN) 0944 (See Alternative - Provider: Ayaka Chery, KAYLA) oxyCODONE immediate release tablet(Linked Group 1) 10 mg, Oral, EVERY 4 HOURS PRN, Starting on 06/13/24 at 0750, Until Discontinued, Severe Pain (pain score 7,8,9,10) 0115 (Given - Provider: Adriana Ruelas, RN)0803 (Given - Provider: Maryanne Ashraf, KAYLA) 0824 (See Alternative - Provider: Kelly Lee, KAYLA)2023 (See Alternative - Provider: Nasrin Loya, KAYLA) 0944 (Given - Provider: Ayaka Chery, KAYLA) white petrolatum ointment Topical, 4 TIMES DAILY PRN, Starting on 06/12/24 at 0808, Until Discontinued, Other, Dryness Linked Groups Order Group 1: oxyCODONE immediate release tabletJump to med 5 mg, Oral, EVERY 4 HOURS PRN, Starting on 06/13/24 at 0750, Until Discontinued, Moderate Pain (pain score 4,5,6) Or oxyCODONE immediate release tabletJump to med 10 mg, Oral, EVERY 4 HOURS PRN, Starting on 06/13/24 at 0750, Until Discontinued, Severe Pain (pain score 7,8,9,10) (unrecognized sect ion and content) No Status Records FoundNo Status Records Found INFORMATION SOURCE (unrecogn ized section and content) DATE CREATED AUTHOR [facility]/09/2025 [facility] DATE CREATED AUTHOR AUTHOR'S KARRIE CALERO 06/12/2025 [facility] FOR RECORDS PERTAINING TO PATIENTS WHO ARE OR HAVE BEEN ENROLLED IN A CHEMICAL DEPENDENCY/SUBSTANCEABUSE PROGRAM, SOME INFORMATION MAY BE OMITTED. This clinical summary was aggregated from multiple sources. Caution should be exercised in using it in the provision of clinical care. This summary normalizes information from multiple sources, and as a consequence, information in this document may materially change the coding, format and clinical context of patient data. In addition, data may be omitted in some cases. CLINICAL DECISIONS SHOULD BE BASED ON THE PRIMARY CLINICAL RECORDS. [facility]. provides no warranty or guarantee of the accuracy or completeness of information in this document.
[2025-06-12 11:25] VITALS: BMI 30.5
[2025-06-12 11:28] LABS: Hematocrit 43.8 % (40-54); Hemoglobin 14.7 g/dL (13.0-16.5); Immature Granulocytes Count 0.010 X10^3/uL (0.0-0.0); Mean Corp Hgb Conc 33.6 g/dL (32-36); Mean Corpuscular Volume 90.9 fL (80-94); Mean Platelet Vol. 10.0 fl (6.2-12.0); NRBC Flagged by Analyzer 0 % (0-5); Platelet Count 143 K/mm3 (150-450); RBC Distribution Width CV 14.0 % (11.6-14.6); RBC Distribution Width SD 46.6 fl (35.1-43.9); Red Blood Count 4.82 M/mm3 (4.6-6.2); White Blood Count 4.9 K/mm3 (4.4-11.0)
[2025-06-12 11:29] VITALS: BP 124/84; PULSE 62; RESP 16; O2SAT 100
--- NOTE | 2025-06-12 11:42 | CT_ITS ---
PROCEDURE: BRAIN/HEAD WITHOUT CONTRAST 06/12/2025 REASON FOR EXAM: MEMORY LOSS TECHNIQUE: Procedure Code: CTBR Modality: CT Procedure: BRAIN/HEAD WITHOUT CONTRAST Coronal and Sagittal reconstruction series were provided. One or more dose reduction techniques were used (e.g., Automated exposure control, adjustment of the mA and/or kV according to patient size, use of iterative reconstruction technique. RADIATION DOSE SUMMARY: CTDlvol: 44.99 mGy DLP: 1574.05 mGycm COMPARISON: None FINDINGS: Brain: There is no evidence of acute intracranial hemorrhage. No region of significant edema, mass effect, or midline shift. CSF Spaces: The ventricles are midline, without hydrocephalus. Sinuses/Mastoids: Well aerated Bones: No skull fracture or destructive skull lesion. CT/Brain/Head without Contrast IMPRESSION: There is no acute intracranial process. Reading Location: [id number]
--- NOTE | 2025-06-12 11:42 | CT_ITS ---
PROCEDURE: CTA HEAD AND NECK W/ CONTRAST 06/12/2025 REASON FOR EXAM: MEMORY LOSS TECHNIQUE: Procedure Code: CTCTA.HDNCK Modality: CT Procedure: CTA HEAD AND NECK W/ CONTRAST Multiplanar Sagittal and Coronal images were obtained. CONTRAST: Refer to technologist paperwork VOLUME: Refer to technologist paperwork mL One or more dose reduction techniques were used (e.g., Automated exposure control, adjustment of the mA and/or kV according to patient size, use of iterative reconstruction technique). RADIATION DOSE SUMMARY: CTDlvol: 44.99 mGy DLP: 1574.05 mGycm COMPARISON: None FINDINGS: Aortic Arch: Nonaneurysmal. Left common carotid artery arises from brachiocephalic trunk. Brachiocephalic and Subclavians: Mild mixed density atherosclerotic change at origin of left subclavian artery, without hemodynamically significant stenosis. RIGHT Carotid: Right CCA: Normal course and caliber. Right ICA: Normal Maximum stenosis (NASCET): No significant stenosis % Right ECA: Patent, within normal limits. LEFT Carotid: Left CCA: Normal course and caliber. Left ICA: Normal. Minimal calcified atherosclerotic plaque at the carotid bulb. Maximum stenosis (NASCET): No significant stenosis. % Left ECA: Patent, within normal limits. Vertebrals: RIGHT Vertebral: Mild narrowing at origin series 4 image 135. Remainder of the vessel is patent throughout the neck. LEFT Vertebral: Patent throughout the neck. Anatomy: [place] anatomy is normal. Aneurysm or avm: No intracranial aneurysms or large vascular malformations are identified. Anterior cerebral arteries: Unremarkable: Middle cerebral arteries: Unremarkable. Basilar artery: Unremarkable. Posterior cerebral arteries: Unremarkable. Other major branches of the posterior circulation: Unremarkable. Major venous structures: Unremarkable. Other findings: Neck: Left hemiglossectomy, left modified neck dissection. Lungs: Calcified granuloma superior segment right lower lobe. Bones: Mild degenerative changes in the cervical spine. CT/CTA Head AND Neck W/ Contrast IMPRESSION: 1. No significant stenosis in carotid arteries utilizing NASCET criteria 2. Grossly unremarkable CTA head and neck. 3. Postsurgical changes consistent with left hemiglossectomy, left modified nec k dissection. Reading Location: [id number]
[2025-06-12 11:52] LABS: AST(SGOT) 26 U/L (<=37); Alanine Aminotransfer ALT/SGPT 16 U/L (<=46); Albumin, Serum 4.2 g/dL (3.4-4.8); Alkaline Phosphatase 73 U/L (40-129); Anion Gap 10 (5-15); BUN 20 mg/dL (4-19); BUN/Creat Ratio 18.8 RATIO (10-20); Calcium,Total 9.5 mg/dL (7.6-11.0); Carbon Dioxide 24.5 mmol/L (21.0-32.0); Chloride 103 mmol/L (98-108); Estimated Creatinine Clearance 61.76 ml/min (50-250); Globulin 2.9 g/dL (2.2-4.2); Glucose 96 mg/dL (70-99); Potassium 4.2 mmol/L (3.3-5.1)
[2025-06-12 12:00] VITALS: BP 147/86; PULSE 54; RESP 14; O2SAT 100
[2025-06-12 12:56] VITALS: BP 145/84; PULSE 55; RESP 13; TEMP 36.7; O2SAT 96
== END 2025-06-12 13:00 | disposition home or self-care (01) ==
PROVIDERS: Emergency Provider Emergency Medicine; PCP Family Medicine; Visit Provider Emergency Medicine
DX: R41.3 Other amnesia (principal); Z87.891 Personal history of nicotine dependence; Z79.899 Other long term (current) drug therapy
CPT/HCPCS: 36591; 70450; 70496; 70498; 80053; 81001; 85025; 93005; 99282; Q9967; A4216

== ENCOUNTER → 2025-06-15 | Outpatient (CLI) | payer MEDICARE, OTHER, SELFPAY ==
[2025-06-15 15:49] LABS: Osmolality, Serum 302 mOsm/KG (280-301)
== END | disposition home or self-care (01) ==
LOC: MFPLAB 13:57
PROVIDERS: PCP Family Medicine; Visit Provider Family Medicine
DX: R41.0 Disorientation, unspecified (principal)
CPT/HCPCS: 36415; 83930; 84443; 85652